=== PATIENT | female | born 1940 | race Caucasian/White ===

== ENCOUNTER 2016-03-22 10:06 | Inpatient (IN) | payer MEDICARE, OTHER ==
[~2016-03-22] VITALS: Ht 160 cm; Wt 122.7 kg
[~2016-03-22 10:06] MED LIST: ACET500T76 PO; ARIP10TA13 PO; ATOR40TA68 PO; BENA20TA48 PO; BRIM10DR12 BOTH EYES; CLOP75TA4 PO; COSO10 BOTH EYES; EMPA1TAB PO; FURO20TA PO; INSU300I SQ; INSU500V SQ; ISOS60TA PO; METO100T13 PO; OMEP20CA16 PO; POTA20TA96 PO; SERT50TA PO; SYMLIN SC
[2016-03-22] MEDS ORDERED: NITROGLYCERIN 2% 1 GM OINT PKT TD STA (10:12)
[2016-03-22] MEDS ORDERED: NITROGLYCERIN (SL) 0.4 MG TAB SL PRN (10:30)
[2016-03-22 10:45] LABS: HEMATOCRIT 37.7 % (37.0-47.0); HEMOGLOBIN 12.1 g/dl (12.0-16.0); MEAN CORPUSCULAR HEMOGLOBIN 23.2 pg (29.0-33.0); MEAN CORPUSCULAR VOLUME 72.6 fl (82.0-101.0); MEAN PLATELET VOLUME 7.2 fl (7.4-10.4); PLATELET COUNT 417 10^3/UL (140-440); UNCORRECTED WBC 17.5 10^3/ul (4.8-10.8); WHITE BLOOD COUNT 17.5 10^3/ul (4.8-10.8)
[2016-03-22 10:49] LABS: CHLORIDE 96 mmol/L (97-110); SODIUM 141 mmol/L (135-144)
[2016-03-22 10:50] LABS: INR 0.89; POTASSIUM 4.3 mmol/L (3.5-5.1); PT RATIO 0.9
[2016-03-22 10:51] LABS: PARTIAL THROMBOPLASTIN TIME 26.5 Sec (25.0-35.0)
[2016-03-22 10:52] LABS: ANION GAP 20 (8-16); BLOOD UREA NITROGEN 26 mg/dl (7-20); CARBON DIOXIDE 29 mmol/L (21-31); CREATININE 0.96 mg/dl (0.44-1.00)
[2016-03-22 10:53] LABS: CALCIUM 8.4 mg/dl (8.4-10.2); GLUCOSE 184 mg/dl (70-220)
[2016-03-22 10:58] LABS: SUSPECT 1
[2016-03-22 10:59] LABS: CONDITION 1; LH ANALYZER COMMENTS 1
--- NOTE | 2016-03-22 11:03 | RADRPT ---
PROCEDURE: XR Chest. CLINICAL INDICATION: Chest pain TECHNIQUE: Single portable view of the chest was obtained COMPARISON: 03/06/16 FINDINGS: The heart is enlarged. There are bibasilar atelectatic changes, right greater than left. There is no pleural effusion or pneumothorax. RPTAT: AA IMPRESSION: Mild Cardiomegaly. Bibasilar atelectatic changes in the lung bases, right greater than left. .Rj Padgett MD, MD Date Time Electronically viewed and signed by .Rj Padgett MD, MD on 03/22/2016 11:03 .S/
[2016-03-22 11:14] LABS: TROPONIN-I < 0.012 ng/ml (0.00-0.12)
[2016-03-22 11:45] LABS: EOSINOPHILS # 0.5 10^3/ul (0.0-0.5); LYMPHOCYTES # 1.8 10^3/ul (0.8-2.9); MONOCYTE # 0.9 10^3/ul (0.3-0.9); NEUTROPHIL # 14.4 10^3/ul (1.6-7.5)
[2016-03-22] MEDS ORDERED: ACETAMINOPHEN 325 MG TAB PO PRN (12:00)
[2016-03-22] MEDS ORDERED: FUROSEMIDE 40 MG INJ IV ONE (12:00)
[2016-03-22] MEDS ORDERED: ONDANSETRON 4 MG INJ IV PRN ×2 (12:00→20:30)
--- NOTE | 2016-03-22 13:42 | ERA ---
ER Documentation Chief Complaint Date/Time DATE: 03/22/16 TIME: 13:40 Chief Complaint BROUGHT IN VIA EMS FROM HOME DUE TO CHEST PAIN HPI Patient is a 75-year-old female with coronary disease, CHF, hypertension, and diabetes who presents with chest pain and shortness of breath. Patient was brought in by ambulance. The patient was given aspirin and nitroglycerin by paramedics. Symptoms started last night. They continued today. She says that she is taking her medications as directed. Upon review of old medical records the patient has multiple visits to the ER with admissions. Her primary doctor is Dr. Alexander but she has been admitted to Dr. Garza on the previous 2 visits to the emergency department as Dr. Alexander does not admit here anymore. ROS All systems reviewed and are negative except as per history of present illness. Medications Home Meds Active Scripts Potassium Chloride* (Potassium Chloride*) 20 Meq Tablet.er, 20 MEQ PO DAILY, # 30 TAB.SA Prov:ENRRIQUE AGUILAR 03/14/16 Furosemide* (Lasix*) 20 Mg Tablet, 40 MG PO BID, #60 TAB Prov:ENRRIQUE AGUILAR 03/14/16 Reported Medications Acetaminophen (PAIN & FEVER) 500 Mg Tablet, 1000 MG PO Q6, TAB 03/06/16 Insulin Glargine,Hum.rec.anlog (Jennie Mcintyre) 300 Unit/1 Ml Insuln.pen, 15 UNIT SQ QAM 03/06/16 Insulin Regular, Human (Humulin R U-500) 500 Unit/1 Ml Vial, 0 SQ TID, VIAL INJECT 33 UNITS-QAM & NOON, &13 UNITS IN DINNER 03/06/16 Pramlintide (Symlinpen 120) 2,700 Mcg/2.7 Ml Pen.injctr, 2700 MCG SC TID 03/06/16 Empagliflozin/Linagliptin (Glyxambi 25 mg-5 mg Tablet) 1 Each Tablet, 1 EACH PO QAM, TAB 03/06/16 Benazepril Hcl* (Benazepril Hcl*) 20 Mg Tablet, 20 MG PO DAILY, #30 TAB 03/06/16 Metoprolol Succinate* (Toprol XL*) 100 Mg Tab.sr.24h, 100 MG PO DAILY, #30 TAB 03/06/16 Isosorbide Mononitrate* (Isosorbide Mononitrate*) 60 Mg Tab.er.24h, 60 MG PO DAILY, TAB 03/06/16 Dorzolamide-Timolol* (Cosopt*) 2%-0.5% Soln, 1 DROP BOTH EYES BID, BOTTLE 12/18/15 Brimonidine Tartrate* (Brimonidine Tartrate*) 0.15%-10ML Drop Opht, 1 DROP BOTH EYES BID, #1 EA 12/18/15 Aripiprazole* (Abilify*) 10 Mg Tablet, 10 MG PO DAILY, #30 TAB 09/03/15 Clopidogrel Bisulfate* (Clopidogrel Bisulfate*) 75 Mg Tablet, 75 MG PO DAILY, TAB 11/28/14 Sertraline Hcl* (Zoloft*) 50 Mg Tablet, 50 MG PO DAILY, TAB 07/05/14 Atorvastatin* (Atorvastatin*) 40 Mg Tablet, 40 MG PO HS, TAB 05/07/14 Omeprazole* (Omeprazole*) 20 Mg Capsule.dr, 20 MG PO BID 09/28/12 Allergies Allergies: Coded Allergies: No Known Drug Allergy (Verified Allergy, Unknown, 03/06/16) PMhx/Soc History of Surgery: No Anesthesia Reaction: No Hx Neurological Disorder: No Hx Respiratory Disorders: Yes Hx Cardiac Disorders: Yes Hx Psychiatric Problems: No Hx Miscellaneous Medical Probl: Yes (vision impaired, CHF, obesity, HTN, anxiety, B LE numbnesse) Hx Alcohol Use: No Hx Substance Use: No Hx Tobacco Use: No Smoking Status: Never smoker FmHx Family History: No coronary disease Physical Exam Vitals Vital Signs Date Time Temp Pulse Resp B/P Pulse Ox O2 Delivery O2 Flow Rate FiO2 03/22/16 10:30 98.5 80 18 175/55 94 Nasal Cannula 3.0 03/22/16 10:30 Nasal Cannula 3 03/22/16 10:12 98.5 96 18 164/72 95 Physical Exam Const: Moderate distress secondary to shortness of breath Head: Atraumatic Eyes: Normal Conjunctiva ENT: Normal External Ears, Nose and Mouth. Neck: Full range of motion..~ No meningismus. Resp: Decreased breath sounds bilaterally Cardio: Regular rate and rhythm, no murmurs Abd: Soft, non tender, non distended. Normal bowel sounds Skin: No petechiae or rashes Back: No midline or flank tenderness Ext: 1+ pitting edema bilateral lower extremities Neur: Awake and alert Psych: Normal Mood and Affect Result Diagram: 03/22/16 1030 03/22/16 1030 Results 24 hrs Laboratory Tests Test 03/22/16 10:30 Activated Partial Thromboplast Time 26.5Sec Anion Gap 20 Basophils # 10^3/ul Basophils % % Blood Morphology Comment Blood Urea Nitrogen 26mg/dl Calcium Level 8.4mg/dl Carbon Dioxide Level 29mmol/L Chloride Level 96mmol/L Creatinine 0.96mg/dl Differential Comment MANUAL DIFF Eosinophils # 0.510^3/ul Eosinophils % 3.0% Glucose Level 184mg/dl Hematocrit 37.7% Hemoglobin 12.1g/dl INR International Normalized Ratio 0.89 Lymphocytes # 1.810^3/ul Lymphocytes % 10.0% Mean Corpuscular Hemoglobin 23.2pg Mean Corpuscular Hemoglobin Concent 32.0g/dl Mean Corpuscular Volume 72.6fl Mean Platelet Volume 7.2fl Monocytes # 0.910^3/ul Monocytes % 5.0% Neutrophils # 14.410^3/ul Neutrophils % 82.0% Nucleated Red Blood Cells # 10^3/ul Nucleated Red Blood Cells % /100WBC Platelet Count 63941^3/UL Potassium Level 4.3mmol/L Prothrombin Time 12.0Sec Prothrombin Time Ratio 0.9 Red Blood Count 5.2010^6/ul Red Cell Distribution Width 22.0% Sodium Level 141mmol/L Troponin I < 0.012ng/ml White Blood Count 17.510^3/ul Current Medications Medications (Trade) Dose Ordered Sig/Errol Route PRN Reason Start Time Stop Time Status Last Admin Dose Admin Nitroglycerin (Nitroglycerin 2% Oint) 1 inch ONCE STAT TD 03/22/16 10:12 03/22/16 10:14 DC 03/22/16 10:34 Nitroglycerin (Nitroglycerin (Sl Tab) 0.4 Mg) 1 tab Q5M UP TO 3 DOSES PRN SL CHEST PAIN 03/22/16 10:30 Furosemide (Lasix) 40 mg ONCE ONCE IV 03/22/16 12:00 03/22/16 12:01 DC Ondansetron HCl (Zofran Inj) 4 mg ER BRIDGE PRN IV NAUSEA AND/OR VOMITING 03/22/16 12:00 12/29/16 11:59 Acetaminophen (Tylenol Tab) 650 mg ER BRIDGE PRN PO MILD PAIN/FEVER 03/22/16 12:00 03/23/16 11:59 Procedures/MDM EKG #1 read by me: Rate/Rhythm: Regular rate and rhythm at a rate of 88 Intervals: Normal Impression: Flipped T waves in the inferior leads EKG #2 pending at this time. PROCEDURE: XR Chest. CLINICAL INDICATION: Chest pain TECHNIQUE: Single portable view of the chest was obtained COMPARISON: 03/06/16 FINDINGS: The heart is enlarged. There are bibasilar atelectatic changes, right greater than left. There is no pleural effusion or pneumothorax. RPTAT: AA IMPRESSION: Mild Cardiomegaly. Bibasilar atelectatic changes in the lung bases, right greater than left. .Rj Padgett MD, MD Date Time Electronically viewed and signed by .Rj Padgett MD, MD on 03/22/2016 11: 03 Patient is a 75-year-old female with multiple comorbidities who presents with what sounds like an acute CHF exacerbation. She was given aspirin and nitroglycerin by paramedics. I gave her Lasix here in the emergency department. The patient will be admitted to the care of Dr. Shepherd who is covering for Dr. Garza. The patient will be admitted to a telemetry bed. The patient understands the plan is okay for admission at this time. I doubt pneumonia or pneumothorax. I doubt pulmonary embolism or aortic dissection at this time. The patient will be admitted to a telemetry observation bed. Departure Diagnosis: Primary Impression: CHF (congestive heart failure) Qualified Code: I50.9 - Acute congestive heart failure, unspecified congestive heart failure type Additional Impression: Chest pain Qualified Code: R07.9 - Chest pain, unspecified type Condition: NADYA Larsen MD Mar 22, 2016 13:42
[2016-03-22 17:00] VITALS: TEMP 98.5
[2016-03-22 17:36] LABS: CK-MB 3.4 ng/ml (0.0-2.4)
[2016-03-22 17:39] LABS: TROPONIN-I 0.011 ng/ml (0.00-0.12)
[2016-03-22] MEDS ORDERED: GLUCOSE GEL 15 GRAM TUBE BUCCAL PRN (19:00)
[2016-03-22] MEDS ORDERED: GLUCOSE GEL 15 GRAM TUBE PO PRN ×2 (19:00)
[2016-03-22] MEDS ORDERED: GLUCAGON 1 MG INJ IM PRN (19:00)
[2016-03-22] MEDS ORDERED: DEXTROSE 50% 50 ML SYRINGE IV PRN ×2 (19:00)
[2016-03-22] MEDS ORDERED: morphine 2 MG INJ IV PRN (20:30)
[2016-03-22] MEDS ORDERED: NACL 0.9% 3 ML SYG IV SCH (20:30)
[2016-03-22] MEDS: ACETAMINOPHEN 325 MG TAB PO PRN (20:44)
[2016-03-22] MEDS: FAMOTIDINE 20 MG INJ IV SCH (21:00)
[2016-03-22] MEDS ORDERED: FUROSEMIDE 20 MG INJ IV ONE (21:30)
[2016-03-22 21:40] LABS: CK-MB 3.45 ng/ml (0.0-2.4)
[2016-03-22 21:43] LABS: TROPONIN-I 0.012 ng/ml (0.00-0.12)
[2016-03-22] MEDS: NPH, HUMAN INSULIN ISOPHANE 3ML VIAL SC SCH (22:13)
[2016-03-22] MEDS: INSULIN ASPART [NOVOLOG] 3 ML PEN SC SCH (22:13)
[2016-03-22 22:45] LABS: CK-MB 3.6 ng/ml (0.0-2.4)
[2016-03-22 22:49] LABS: TROPONIN-I 0.012 ng/ml (0.00-0.12)
[2016-03-23] VITALS (12 sets, daily range): BP systolic 109–174; BP diastolic 53–85; PULSE 74–93; RESP 18–22; Ht 160 cm; Wt 122.7 kg
[2016-03-23] MEDS: ACCUCHECK AT 2AM (Patients on SS coverage) XX SCH (03:00)
[2016-03-23 03:03] LABS: BASOPHIL # 0.1 10^3/ul (0.0-0.1); BASOPHILS % 0.6 % (0.0-2.0); EOSINOPHILS # 0.2 10^3/ul (0.0-0.5); EOSINOPHILS % 1.6 % (0.0-7.0); HEMOGLOBIN 11.7 g/dl (12.0-16.0); LYMPHOCYTES # 0.9 10^3/ul (0.8-2.9); MEAN CORPUSCULAR HEMOGLOBIN 22.9 pg (29.0-33.0); MEAN CORPUSCULAR HGB CONC 31.5 g/dl (32.0-37.0); MEAN CORPUSCULAR VOLUME 72.5 fl (82.0-101.0); MONOCYTE # 0.7 10^3/ul (0.3-0.9); MONOCYTES % 5.5 % (0.0-11.0); NEUTROPHIL # 11.4 10^3/ul (1.6-7.5); NEUTROPHILS % 85.3 % (39.0-77.0); PLATELET COUNT 377 10^3/UL (140-440); RED BLOOD COUNT 5.11 10^6/ul (4.20-5.40); RED CELL DISTRIBUTION WIDTH 21.9 % (11.5-14.5); UNCORRECTED WBC 13.3 10^3/ul (4.8-10.8); WHITE BLOOD COUNT 13.3 10^3/ul (4.8-10.8)
[2016-03-23 03:04] LABS: CONDITION 1; LH ANALYZER COMMENTS 1
[2016-03-23 03:21] LABS: POTASSIUM 4.2 mmol/L (3.5-5.1)
[2016-03-23 03:23] LABS: BILIRUBIN,INDIRECT 0.3 mg/dl (0-1.1); BILIRUBIN,TOTAL 0.3 mg/dl (0.2-1.3); CREATININE 1.16 mg/dl (0.44-1.00)
[2016-03-23 03:24] LABS: ALBUMIN/GLOBULIN RATIO 1.08; CALCIUM 8.3 mg/dl (8.4-10.2); TOTAL PROTEIN 7.7 g/dl (6.1-8.1)
[2016-03-23 03:33] LABS: CK-MB 3.64 ng/ml (0.0-2.4)
[2016-03-23 03:36] LABS: TROPONIN-I 0.019 ng/ml (0.00-0.12)
[2016-03-23] MEDS: METOPROLOL (XL) 100 MG TAB PO SCH (08:33)
[2016-03-23] MEDS: ISOSORBIDE MONONITRATE(SR)60 MG TAB PO SCH (08:34)
[2016-03-23] MEDS: LINAGLIPTIN 5 MG TABLET PO SCH (08:34)
[2016-03-23] MEDS: BENAZEPRIL 20 MG TAB PO SCH (08:34)
[2016-03-23] MEDS: FAMOTIDINE 20 MG INJ IV SCH (08:34)
[2016-03-23] MEDS: INSULIN ASPART [NOVOLOG] 3 ML PEN SC SCH ×7 (08:37→21:00)
[2016-03-23] MEDS: ENOXAPARIN 30 MG/0.3 ML SYG SC SCH (08:38)
[2016-03-23] MEDS: INSULIN GLARGINE [LANtus] 3 ML PEN SC SCH (08:57)
--- NOTE | 2016-03-23 13:16 | RADRPT ---
PROCEDURE: CT Abdomen and Pelvis without contrast. CLINICAL INDICATION: Abdominal and pelvic pain. TECHNIQUE: CT scan of the abdomen and pelvis without contrast was performed. Coronal and sagittal reformatted images were obtained from the axial source images. Images were reviewed on a high-res[employer] Incentive PACS workstation. Total exam DLP is 1375.98 mGy-cm. CTDIvol is 23.32 mGy. COMPARISON: None. FINDINGS: The lung bases are normal. There is no pleural effusion. The liver is normal in size and attenuation. There is no focal hepatic lesion. The gallbladder and bile ducts are normal. The spleen is normal in size. There is no focal splenic lesion. Both adrenals are normal with no enlargement or mass. The pancreas is unremarkable with no mass or evidence of pancreatitis. There is no renal mass or hydronephrosis. There is no renal calculus or ureteral calculus. The abdominal aorta is not dilated. Vascular calcifications are present consistent with atherosclero sis. There is no retroperitoneal lymphadenopathy or mass. There is no pelvic lymphadenopathy or mass. The bladder and distal ureters are normal. The periappendiceal region is unremarkable with no evidence of appendicitis. The bowel and mesentery are normal. There is no free fluid or free gas. There are mild degenerative changes of the spine. There is no fracture or lytic lesion. IMPRESSION: 1. Atherosclerosis. 2. Mild degenerative changes of the spine. 3. No urinary tract calculus or hydronephrosis. 4. No evidence of appendicitis or diverticulitis. 5. Otherwise unremarkable study. RPTAT: QQ .Uri Ley MD, Date Time Electronically viewed and signed by .Uri Ley MD, on 03/23/2016 13:16 .R/
--- NOTE | 2016-03-23 13:24 | HP ---
Date/Time of Note Date/Time of Note DATE: 03/23/16 TIME: 13:21 Assessment/Plan VTE Prophylaxis VTE Prophylaxis Intervention: LMWH Lines/Catheters IV Catheter Type (from [facility]): Saline [employer] Central line still needed: No Urinary Cath still in place: Yes Reason Cath still needed: skin wounds contaminated by urine Assessment/Plan Chief Complaint/Hosp Course 1) congestive heart failure - IV lasix - consult cardiolgy - check 2d echo 2) diabetes - monitor blood sugar Problems: HPI/ROS Admit Date/Time Admit Date/Time Mar 22, 2016 at 11:48 Hx of Present Illness Patient with history of diabetes, hyperension, congestive heart failure comes in with shortness of breath which she has had in the past. PMH/Family/Social Past Medical History Medical History: congestive heart failure, diabetes, hypertension Past Surgical History Past Surgical Hx: other Social History Smoking Status: Never smoker Exam/Review of Systems Vital Signs Vitals Vital Signs Date Time Temp Pulse Resp B/P Pulse Ox O2 Delivery O2 Flow Rate FiO2 03/23/16 12:11 76 03/23/16 07:49 100.5 19 174/72 92 03/23/16 07:45 Nasal Cannula 2.0 Intake and Output 03/22/16 03/22/16 03/23/16 15:00 23:00 07:00 Output Total 500 ml Balance -500 ml Exam Constitutional: alert, well developed Respiratory: diminished breath sounds, wheezing Cardiovascular: regular rate and rhythm Gastrointestinal: non-tender, soft Extremities: normal pulses Labs Result Diagram: 03/23/16 0253 03/23/16 025 Medications Medications Current Medications Insulin Human NPH (Humulin N) 30 unit QHS SC Last administered on 03/22/16at 22 :13; Admin Dose 30 UNIT; Start 03/22/16 at 21:00 Insulin Glargine (Lantus) 45 unit QAM SC Last administered on 03/23/16at 08:57 ; Admin Dose 45 UNIT; Start 03/23/16 at 09:00 Linagliptin (Tradjenta) 5 mg DAILY PO Last administered on 03/23/16at 08:34; Admin Dose 5 MG; Start 03/23/16 at 09:00 Miscellaneous Information 1 ea NOTE XX ; Start 03/22/16 at 19:00 Glucose (Glutose) 15 gm Q15M PRN PO DECREASED GLUCOSE; Start 03/22/16 at 19:00 Glucose (Glutose) 22.5 gm Q15M PRN PO DECREASED GLUCOSE; Start 03/22/16 at 19: 00 Dextrose (D50w Syringe) 25 ml Q15M PRN IV DECREASED GLUCOSE; Start 03/22/16 at 19:00 Dextrose (D50w Syringe) 50 ml Q15M PRN IV DECREASED GLUCOSE; Start 03/22/16 at 19:00 Glucagon (Glucagen) 1 mg Q15M PRN IM DECREASED GLUCOSE; Start 03/22/16 at 19: 00 Glucose (Glutose) 15 gm Q15M PRN BUCCAL DECREASED GLUCOSE; Start 03/22/16 at 19:00 Diagnostic Test (Pha) (Accucheck) 1 ea 02 XX Last administered on 03/23/16at 03 :00; Admin Dose 1 EA; Start 03/23/16 at 02:00 Ondansetron HCl (Zofran Inj) 4 mg Q6H PRN IV NAUSEA AND/OR VOMITING; Start at 20:30 Acetaminophen (Tylenol Tab) 650 mg Q6H PRN PO PAIN LEVEL 1-3 OR FEVER Last administered on 03/22/16at 20:44; Admin Dose 650 MG; Start 03/22/16 at 20:30 Morphine Sulfate (morphine) 2 mg Q4H PRN IV PAIN LEVEL 7-10; Start 03/22/16 at 20:30 Famotidine (Pepcid Iv) 20 mg DAILY IV Last administered on 03/23/16at 08:34; Admin Dose 20 MG; Start 03/22/16 at 21:00 Enoxaparin Sodium (Lovenox) 30 mg DAILY SC Last administered on 03/23/16at 08: 38; Admin Dose 30 MG; Start 03/23/16 at 09:00 Albuterol/ Ipratropium (Duoneb) 3 ml ONCE PRN HHN WHEEZING AND SOB; Start 03/22 at 21:30 Clonidine (Catapres) 0.1 mg Q6H PRN PO ELEVATED SYSTOLIC BP; Start 03/23/16 at 04:03 Benazepril HCl (Lotensin) 20 mg DAILY PO Last administered on 03/23/16at 08:34 ; Admin Dose 20 MG; Start 03/23/16 at 09:00 Isosorbide Mononitrate (Imdur) 60 mg DAILY PO Last administered on 03/23/16at 08:34; Admin Dose 60 MG; Start 03/23/16 at 09:00 Metoprolol Succinate (Toprol Xl) 100 mg DAILY PO Last administered on at 08:33; Admin Dose 100 MG; Start 03/23/16 at 09:00 BRISA PURVIS Mar 23, 2016 13:23
--- NOTE | 2016-03-23 13:34 | CONS ---
Date/Time of Note Date/Time of Note DATE: 03/23/16 TIME: 13:25 Assessment/Plan Assessment/Plan Problems: (1) DM w/o complication type II, uncontrolled Status: Chronic Comment: Once again d/c outpatient regimen of U500 insulin and restart inpt. regimen of lantus 45 qam, Novolog 42/25/20 w/ moderate ISS and NPH 30 units at hs plus linagliptin 5 mg/d. FS already decreased. Will follow and titrate insulin as needed. Consultation Date/Type/Reason Admit Date/Time Mar 22, 2016 at 11:48 Date of Consultation: Mar 23, 2016 Type of Consultation: Endocrinology Reason for Consultation T2DM management Referring Provider: BRISA PURVIS Hx of Present Illness 75 y/o HF w/ h/o T2DM w/ multiple complications, CKD stage 2-3, chronic diastolic CHF, CAD, HTN, glaucoma, vision loss, depression, anxiety, hyperlipidemia, and morbid obesity. As an outpt. she is maintained on very high doses of insulin. In H until 2 days ago when she developed thoracic back pressure associated w/ SOB and FONTENOT. [place] like she was going to . Taking lasix at home w/o relief. Pt. just inpatient for same 2 weeks ago. Returned to [facility] yesterday. Found to be in diastolic CHF exacerbation. Admitted to tele. Constitutional: requiring O2 Eyes: no complaints ENT: no complaints Respiratory: cough, pain, pleuritic pain, shortness of breath, wheezing Cardiovascular: chest pain, edema, orthopenea Gastrointestinal: no complaints Genitourinary: no complaints Musculoskeletal: no complaints Neurologic: no complaints Past Medical History Medical History: congestive heart failure, coronary artery disease, diabetes, high cholesterol, hypertension, renal disease, other (glaucoma w/ B vision loss , anxiety, depression) Past Surgical History Past Surgical Hx: other (Ovarian cystectomy, BECKY, laser eye surgery) Family History Significant Family History: cancer (uterine-sister), diabetes, other (EtOH abuse in father) [facility] 43 [facility], from , 1 daughter Alcohol Use: none Smoking Status: Never smoker Drug Use: none Exam/Review of Systems Vital Signs Vitals VS - Last 72 Hours, by Label Date Time Temp Pulse Resp B/P Pulse Ox O2 Delivery O2 Flow Rate FiO2 03/23/16 12:11 76 03/23/16 08:33 93 03/23/16 07:49 100.5 97 19 174/72 92 03/23/16 07:45 Nasal Cannula 2.0 03/23/16 04:17 99.5 100 22 170/70 95 03/23/16 04:00 93 03/23/16 03:11 Nasal Cannula 2.0 03/23/16 02:32 92 03/23/16 02:29 97.9 92 20 131/85 96 Nasal Cannula 2.0 03/23/16 02:00 3.0 03/23/16 01:56 83 26 137/67 97 Nasal Cannula 3.0 03/22/16 23:51 3.0 03/22/16 22:30 93 18 186/79 96 Nasal Cannula 5.0 03/22/16 21:30 180/143 96 Nasal Cannula 5.0 03/22/16 17:00 98.5 98 18 180/86 94 Nasal Cannula 5.0 03/22/16 15:00 98.5 98 18 176/82 94 Nasal Cannula 3.0 03/22/16 13:00 98.5 98 18 180/79 94 Nasal Cannula 3.0 03/22/16 12:00 98.5 85 18 153/73 94 Nasal Cannula 3.0 03/22/16 10:30 98.5 80 18 175/55 94 Nasal Cannula 3.0 03/22/16 10:30 Nasal Cannula 3 03/22/16 10:12 98.5 96 18 164/72 95 Vital Signs Date Time Temp Pulse Resp B/P Pulse Ox O2 Delivery O2 Flow Rate FiO2 03/23/16 12:11 76 03/23/16 07:49 100.5 19 174/72 92 03/23/16 07:45 Nasal Cannula 2.0 Intake and Output 03/22/16 03/22/16 03/23/16 14:59 22:59 06:59 Output Total 500 ml Balance -500 ml Exam Constitutional: alert, distress (tachypneic), obese, oriented Psych: anxiety Eyes: EOMI, PERRL, nl conjunctiva, nl lids, nl sclera ENMT: mucosa pink and moist, nl external ears & nose Neck: non-tender, supple, No bruits, No masses, No thyromegaly Respiratory: crackles/rales, labored breathing, wheezing Cardiovascular: edema (trace BLE), regular rate and rhythm, No murmurs/extra sounds, No rub Gastrointestinal: bowel sounds, nl liver, spleen, non-tender, soft, No mass, No rebound or guarding Musculoskeletal: nl extremities to inspection Extremities: normal pulses, No clubbing, No cyanosis, No edema Neurological: NUTRITION HELPER II-XII intact, nl mental status, nl speech, nl strength Additional Comments Bedside Glucose - 72 Hours Test 03/22/16 20:14 03/22/16 21:32 03/23/16 03:01 03/23/16 07:45 Bedside Glucose 387mg/dL (70-220) H 374mg/dL (70-220) H 309mg/dL (70-220) H 311mg/dL (70-220) H Test 03/23/16 08:24 03/23/16 12:09 Bedside Glucose 318mg/dL (70-220) H 176mg/dL (70-220) Results Result Diagram: 03/23/16 0253 03/23/16 0253 Results 24 hrs Laboratory Tests Test 03/22/16 17:00 03/22/16 20:14 03/22/16 21:09 03/22/16 21:32 Creatine Kinase 234 H 287 H Creatine Kinase Index 1.5 1.2 Creatinine Kinase MB (Mass) 3.40 H 3.45 H Troponin I 0.011 0.012 Bedside Glucose 387 H 374 H Test 03/22/16 22:13 03/23/16 02:53 03/23/16 03:01 03/23/16 07:45 Creatine Kinase 303 H 314 H Creatine Kinase Index 1.2 1.2 Creatinine Kinase MB (Mass) 3.60 H 3.64 H Troponin I 0.012 0.019 Alanine Aminotransferase (ALT/SGPT) 32 Albumin 4.0 Albumin/Globulin Ratio 1.08 Alkaline Phosphatase 96 Anion Gap 18 H Aspartate Amino Transf (AST/SGOT) 26 Basophils # 0.1 Basophils % 0.6 Blood Morphology Comment Blood Urea Nitrogen 26 H Calcium Level 8.3 L Carbon Dioxide Level 32 H Chloride Level 95 L Creatinine 1.16 H Direct Bilirubin 0.00 Eosinophils # 0.2 Eosinophils % 1.6 Globulin 3.70 H Glucose Level 321 H Hematocrit 37.0 Hemoglobin 11.7 L Indirect Bilirubin 0.3 Lymphocytes # 0.9 Lymphocytes % 7.0 L Mean Corpuscular Hemoglobin 22.9 L Mean Corpuscular Hemoglobin Concent 31.5 L Mean Corpuscular Volume 72.5 L Mean Platelet Volume 7.0 L Monocytes # 0.7 Monocytes % 5.5 Neutrophils # 11.4 H Neutrophils % 85.3 H Nucleated Red Blood Cells # 0.0 Nucleated Red Blood Cells % 0.0 Platelet Count 377 Potassium Level 4.2 Red Blood Count 5.11 Red Cell Distribution Width 21.9 H Sodium Level 141 Total Bilirubin 0.3 Total Protein 7.7 White Blood Count 13.3 #H Bedside Glucose 309 H 311 H Test 03/23/16 08:24 03/23/16 12:09 Bedside Glucose 318 H 176 Medications Medications Current Medications Insulin Human NPH (Humulin N) 30 unit QHS SC Last administered on 03/22/16at 22 :13; Admin Dose 30 UNIT; Start 03/22/16 at 21:00 Insulin Glargine (Lantus) 45 unit QAM SC Last administered on 03/23/16at 08:57 ; Admin Dose 45 UNIT; Start 03/23/16 at 09:00 Linagliptin (Tradjenta) 5 mg DAILY PO Last administered on 03/23/16at 08:34; Admin Dose 5 MG; Start 03/23/16 at 09:00 Miscellaneous Information 1 ea NOTE XX ; Start 03/22/16 at 19:00 Glucose (Glutose) 15 gm Q15M PRN PO DECREASED GLUCOSE; Start 03/22/16 at 19:00 Glucose (Glutose) 22.5 gm Q15M PRN PO DECREASED GLUCOSE; Start 03/22/16 at 19: 00 Dextrose (D50w Syringe) 25 ml Q15M PRN IV DECREASED GLUCOSE; Start 03/22/16 at 19:00 Dextrose (D50w Syringe) 50 ml Q15M PRN IV DECREASED GLUCOSE; Start 03/22/16 at 19:00 Glucagon (Glucagen) 1 mg Q15M PRN IM DECREASED GLUCOSE; Start 03/22/16 at 19: 00 Glucose (Glutose) 15 gm Q15M PRN BUCCAL DECREASED GLUCOSE; Start 03/22/16 at 19:00 Diagnostic Test (Pha) (Accucheck) 1 ea 02 XX Last administered on 03/23/16at 03 :00; Admin Dose 1 EA; Start 03/23/16 at 02:00 Ondansetron HCl (Zofran Inj) 4 mg Q6H PRN IV NAUSEA AND/OR VOMITING; Start at 20:30 Acetaminophen (Tylenol Tab) 650 mg Q6H PRN PO PAIN LEVEL 1-3 OR FEVER Last administered on 03/22/16at 20:44; Admin Dose 650 MG; Start 03/22/16 at 20:30 Morphine Sulfate (morphine) 2 mg Q4H PRN IV PAIN LEVEL 7-10; Start 03/22/16 at 20:30 Famotidine (Pepcid Iv) 20 mg DAILY IV Last administered on 03/23/16 08:34; Admin Dose 20 MG; Start 03/22/16 at 21:00 Enoxaparin Sodium (Lovenox) 30 mg DAILY SC Last administered on 03/23/16 08: 38; Admin Dose 30 MG; Start 03/23/16 at 09:00 Albuterol/ Ipratropium (Duoneb) 3 ml ONCE PRN HHN WHEEZING AND SOB; Start 03/22 at 21:30 Clonidine (Catapres) 0.1 mg Q6H PRN PO ELEVATED SYSTOLIC BP; Start 03/23/16 at 04:03 Benazepril HCl (Lotensin) 20 mg DAILY PO Last administered on 03/23/16at 08:34 ; Admin Dose 20 MG; Start 03/23/16 at 09:00 Isosorbide Mononitrate (Imdur) 60 mg DAILY PO Last administered on 03/23/16 08:34; Admin Dose 60 MG; Start 03/23/16 at 09:00 Metoprolol Succinate (Toprol Xl) 100 mg DAILY PO Last administered on at 08:33; Admin Dose 100 MG; Start 03/23/16 at 09:00 TONY KELLY MD Mar 23, 2016 13:34
[2016-03-23] MEDS: ALBUTEROL/IPRATROPIUM (NEB) 3 ML AMP HHN PRN (17:12)
[2016-03-23] MEDS: FUROSEMIDE 20 MG INJ IV SCH (17:49)
--- NOTE | 2016-03-23 18:18 | CONS ---
DATE OF ADMISSION: 03/22/2016 DATE OF CONSULTATION: 03/23/2016 TYPE OF CONSULTATION: Cardiology. REASON FOR CONSULTATION: Congestive heart failure exacerbation. REQUESTING PHYSICIAN: Zahida Purvis MD HISTORY OF PRESENT ILLNESS: Ms. Lee is a 75-year-old female with history of congestive heart failure with preserved left ventricular ejection fraction by echo in 11/2015, hypertension, chronic kidney disease, diabetes mellitus, coronary artery disease who had recently been admitted for CHF exacerbation, was diuresed, made improvement, discharged to outpatient followup and now re- presents with complaints of shortness of breath. Upon arrival in the emergency department, temperature 98.5, blood pressure 164/72, pulse 96, respiratory rate 18, saturating 95%. The patient's labs revealed a white cell count of 17.5, a hemoglobin of 12.1, a platelet count of 417. A sodium of 141, potassium 4.3, creatinine 0.96, BUN 26. Troponin negative. INR 0.89. The patient underwent a chest x-ray revealing mild cardiomegaly; bibasilar atelectatic changes in the lung bases, right greater than left. An abdominopelvic CT revealing mild degenerative changes of the spine, no evidence of appendicitis or diverticulosis. The patient's electrocardiogram revealed normal sinus rhythm at a rate of 88 with normal axis, normal intervals, inferior biphasic T-wave abnormalities. The patient subsequently has been admitted to the floor, where she continues to have shortness breath. PAST MEDICAL HISTORY: As above in HPI. MEDICATIONS CURRENTLY IN HOSPITAL: 1. Lasix 20 mg IV b.i.d. 2. Tradjenta. 3. Lovenox. 4. Benazepril 40 mg daily. 5. Imdur 60 mg daily. 6. Toprol-XL 100 mg daily. 7. Insulin sliding scale. 8. Clonidine p.r.n. 9. DuoNeb. ALLERGIES: NO KNOWN DRUG ALLERGIES. SOCIAL HISTORY: No tobacco, ETOH, illicit drug use. FAMILY HISTORY: Negative for sudden cardiac or early CAD. REVIEW OF SYSTEMS: As above in HPI. CONSTITUTIONAL: No fevers, chills. PULMONARY: Shortness of breath. CARDIOVASCULAR: No current chest pain. GASTROINTESTINAL: No vomiting. GENITOURINARY: No hematuria. MUSCULOSKELETAL: Degenerative joint disease. PSYCHIATRIC: The patient denies depression. NEUROLOGIC: No documented history of CVA. PHYSICAL EXAMINATION: VITAL SIGNS: Temperature of 98.8, blood pressure most recently 109/53, pulse 76 , respiratory rate 20, saturating 97%. GENERAL: The patient is alert, awake, complaining of shortness of breath. NECK: JVP difficult to assess secondary to body habitus. HEART: Regular rate, rhythm. Normal S1, S2. I/ systolic murmur. Nondisplaced PMI. ABDOMEN: Positive bowel sounds, soft. EXTREMITIES: Trace edema. Pulse 1+ bilaterally at posterior tibial. LABORATORIES: As above in HPI with since admit the patient having more than 3 negative troponins, ruling out for acute myocardial infarction. White blood cell count from today 13.3, hemoglobin of 11.7, platelet count of 377. INR 0.89. IMAGING STUDIES: As above in HPI. No further imaging studies for my review at this time. ELECTROCARDIOGRAM: As above in HPI. No further electrocardiograms for my review at this time. IMPRESSION: 1. Congestive heart failure, diastolic, acute on chronic by echocardiogram 2015. 2. Hypertensive urgency/emergency, currently improved on most recent vital sign assessment. 3. Shortness of breath secondary to #1. 4. Diabetes mellitus. 5. Renal insufficiency, acute. 6. Anemia. 7. Leukocytosis. RECOMMENDATIONS: 1. At this time would maintain patient on telemetry monitoring to follow rhythm and rate control closely. 2. Would continue the patient's Lasix diuresis, follow strict I's and O's and creatinine to grade diuresis closely. 3. Continue the patient's current Toprol, benazepril, Imdur for control of blood pressure and any antianginal effects. 4. Check serial EKGs, assess for any significant ongoing changes. 5. Adjustment of the patient's hypoglycemics to improve blood glucose control. 6. Check a fasting lipid panel for general risk stratification and initiate lipid-lowering medication as necessary. 7. Would consider bronchodilators and follow up all culture data. Thank you for allowing me to take part in the care of this patient. I will continue to follow along very closely with you with further recommendations to be made as patient progresses through her inpatient hospital clinical course. Dictated By: TERRIE GAINES/CLAUDIA Conf#: [id number] DID#: [id number] CC: ZAHIDA PURVIS MD;*EndCC* MTDD
--- NOTE | 2016-03-23 18:51 | RADRPT ---
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 Physician: BRISA PURVIS Quality: Technically Difficult Study Procedures: Transthoracic echocardiogram with complete 2D, M-Mode, and doppler examination. Indications: Congestive Heart Failure. 2D/M Mode Doppler Measurement Value Normal Ranges Measurement Value Normal Ranges LVIDd 2D 5.4 3.5 - 5.6 cm AV Peak Aditya 1.6 m/sec LVIDs 2D 3.1 2.1 - 4.1 cm AV Peak PG 10.3 mmHg LVPWd 2D 0.9 0.6 - 1.1 cm LVOT Peak Aditya 1.1 m/sec AoR Diam 2D 2.7 2.0 - 3.7 cm LVOT Peak PG 5.1 mmHg EDV 2D 140.7 cm3 MV E Peak Aditya 0.9 m/sec ESV 2D 29.8 cm3 MV A Peak Aditya 1.1 m/sec LA Dimen 2D 3.5 2.3 - 4.0 cm MV E/A 0.8 MV Decel Time 250 msec MV Decel Navarro 4 MV E/A 0.8 TR Peak Aditya 2.6 m/sec TR Peak PG 27.0 mmHg RVSP 30.0 mmHg Findings Left Ventricle: Normal left ventricular systolic function. Normal left ventricular cavity size. Normal left ventricular wall thickness. Ejection fraction is visually estimated at 55 %. Tissue Doppler/Mitral Doppler indices are consistent with impaired relaxation (Stage I diastolic dysfunction). Right Ventricle: Normal right ventricular size. Normal right ventricular systolic function. Left Atrium: The left atrium is normal in size. Right Atrium: The right atrium is normal in size. Mitral Valve: Mild mitral leaflet calcification. Mild mitral annular calcification. Trace mitral regurgitation. Aortic Valve: Normal appearance of the aortic valve. No significant aortic stenosis or insufficiency. Tricuspid Valve: Normal appearance of the tricuspid valve. Estimated peak PA systolic pressure 30 mmHg. There is trace to mild tricuspid regurgitation. Pulmonic Valve: Pulmonic valve not well visualized. Pericardium: Normal pericardium with no significant pericardial effusion. Aorta: Normal aortic root. IVC: Normal size and normal respiratory collapse consistent with normal right atrial pressure. Pulmonary Artery: Normal pulmonary artery size. Conclusions 1.Normal left ventricular systolic function. Normal left ventricular cavity size. Normal left ventricular wall thickness. Ejection fraction is visually estimated at 55 %. Tissue Doppler/Mitral Doppler indices are consistent with impaired relaxation (Stage I diastolic dysfunction). 2.Mild mitral leaflet calcification. Mild mitral annular calcification. Trace mitral regurgitation. 3.Normal appearance of the tricuspid valve. Estimated peak PA systolic pressure 30 mmHg. There is trace to mild tricuspid regurgitation. Electronically Signed By: Jimbo Cota 23-Mar-2016 18:50:26 -0800 Patient Name: TAMAR TIERNEY Study Date: 23-Mar-2016 [id number]
[2016-03-23] MEDS: NPH, HUMAN INSULIN ISOPHANE 3ML VIAL SC SCH (22:30)
[2016-03-24] VITALS (11 sets, daily range): BP systolic 116–173; BP diastolic 56–83; PULSE 61–85; RESP 18–20
[2016-03-24] MEDS: ACCUCHECK AT 2AM (Patients on SS coverage) XX SCH (02:00)
[2016-03-24] MEDS: FUROSEMIDE 20 MG INJ IV SCH (05:51)
[2016-03-24 06:50] LABS: BASOPHILS % 0.3 % (0.0-2.0); EOSINOPHILS # 0.3 10^3/ul (0.0-0.5); EOSINOPHILS % 2.9 % (0.0-7.0); HEMATOCRIT 36.2 % (37.0-47.0); HEMOGLOBIN 11.4 g/dl (12.0-16.0); LYMPHOCYTES # 1.5 10^3/ul (0.8-2.9); LYMPHOCYTES % 13.6 % (15.0-51.0); MEAN CORPUSCULAR HEMOGLOBIN 23.1 pg (29.0-33.0); MEAN CORPUSCULAR HGB CONC 31.3 g/dl (32.0-37.0); MEAN CORPUSCULAR VOLUME 73.8 fl (82.0-101.0); MEAN PLATELET VOLUME 7.6 fl (7.4-10.4); MONOCYTE # 1.1 10^3/ul (0.3-0.9); MONOCYTES % 9.4 % (0.0-11.0); NEUTROPHIL # 8.4 10^3/ul (1.6-7.5); NEUTROPHILS % 73.8 % (39.0-77.0); PLATELET COUNT 343 10^3/UL (140-440); RED BLOOD COUNT 4.91 10^6/ul (4.20-5.40); RED CELL DISTRIBUTION WIDTH 21.6 % (11.5-14.5); UNCORRECTED WBC 11.4 10^3/ul (4.8-10.8); WHITE BLOOD COUNT 11.4 10^3/ul (4.8-10.8)
[2016-03-24 07:03] LABS: CONDITION 1; LH ANALYZER COMMENTS 1
[2016-03-24 07:07] LABS: POTASSIUM 4.5 mmol/L (3.5-5.1)
[2016-03-24 07:09] LABS: CREATININE 2.15 mg/dl (0.44-1.00)
[2016-03-24 07:10] LABS: CALCIUM 8.1 mg/dl (8.4-10.2)
[2016-03-24] MEDS: ISOSORBIDE MONONITRATE(SR)60 MG TAB PO SCH (08:28)
[2016-03-24] MEDS: BENAZEPRIL 20 MG TAB PO SCH (08:28)
[2016-03-24] MEDS: LINAGLIPTIN 5 MG TABLET PO SCH (08:28)
[2016-03-24] MEDS: ENOXAPARIN 30 MG/0.3 ML SYG SC SCH (08:31)
[2016-03-24] MEDS: INSULIN GLARGINE [LANtus] 3 ML PEN SC SCH (08:32)
[2016-03-24] MEDS: FAMOTIDINE 20 MG INJ IV SCH (08:32)
[2016-03-24] MEDS: INSULIN ASPART [NOVOLOG] 3 ML PEN SC SCH ×7 (08:33→21:05)
[2016-03-24] MEDS: METOPROLOL (XL) 100 MG TAB PO SCH (08:34)
[2016-03-24] MEDS: ACETAMINOPHEN 325 MG TAB PO PRN (11:47)
--- NOTE | 2016-03-24 12:47 | CONS ---
Date/Time of Note Date/Time of Note DATE: 03/24/16 TIME: 12:43 Assessment/Plan Assessment/Plan Problems: (1) DM w/o complication type II, uncontrolled Status: Chronic Comment: FS in good control yesterday but FBG elevated today. No notation by O /N RN of feeding pt. so will increase NPH from 30 to 38 units sq qhs. O/w rest of insulin doses pt. is receiving appear to be effective. Will continue. Consultation Date/Type/Reason Admit Date/Time Mar 22, 2016 at 11:48 Initial Consult Date 03/23/16 Type of Consultation: Endocrinology Reason for Consultation T2DM management Referring Provider: BRISA PURVIS 24 HR Interval Summary Constitutional: requiring O2 Detailed Summary Respiratory: cough, pain, shortness of breath (improved), wheezing Cardiovascular: chest pain Gastrointestinal: pain (from coughing) Genitourinary: no complaints Musculoskeletal: no complaints Neurologic: no complaints Exam/Review of Systems Vital Signs Vitals VS - Last 72 Hours, by Label Date Time Temp Pulse Resp B/P Pulse Ox O2 Delivery O2 Flow Rate FiO2 03/24/16 12:22 73 03/24/16 11:52 98.3 68 20 132/61 95 03/24/16 08:26 80 03/24/16 08:00 Nasal Cannula 2.0 03/24/16 07:52 98.4 89 20 173/69 97 03/24/16 04:17 85 03/24/16 04:00 98.8 76 18 146/65 98 03/24/16 00:51 78 03/23/16 21:37 3.0 03/23/16 20:16 Nasal Cannula 2.0 03/23/16 20:03 76 03/23/16 19:35 99.3 75 20 118/58 98 03/23/16 17:13 98 3.0 03/23/16 17:13 98 18 98 Nasal Cannula 3.0 03/23/16 16:20 74 03/23/16 16:15 98.8 76 20 109/53 97 03/23/16 12:11 76 03/23/16 08:33 93 03/23/16 07:49 100.5 97 19 174/72 92 03/23/16 07:45 Nasal Cannula 2.0 03/23/16 04:17 99.5 100 22 170/70 95 03/23/16 04:00 93 03/23/16 03:11 Nasal Cannula 2.0 03/23/16 02:32 92 03/23/16 02:29 97.9 92 20 131/85 96 Nasal Cannula 2.0 03/23/16 02:00 3.0 03/23/16 01:56 83 26 137/67 97 Nasal Cannula 3.0 03/23/16 00:00 98.2 81 18 115/55 96 03/22/16 23:51 3.0 03/22/16 22:30 93 18 186/79 96 Nasal Cannula 5.0 03/22/16 21:30 180/143 96 Nasal Cannula 5.0 03/22/16 17:00 98.5 98 18 180/86 94 Nasal Cannula 5.0 03/22/16 15:00 98.5 98 18 176/82 94 Nasal Cannula 3.0 03/22/16 13:00 98.5 98 18 180/79 94 Nasal Cannula 3.0 03/22/16 12:00 98.5 85 18 153/73 94 Nasal Cannula 3.0 03/22/16 10:30 98.5 80 18 175/55 94 Nasal Cannula 3.0 03/22/16 10:30 Nasal Cannula 3 03/22/16 10:12 98.5 96 18 164/72 95 Vital Signs Date Time Temp Pulse Resp B/P Pulse Ox O2 Delivery O2 Flow Rate FiO2 03/24/16 12:22 73 03/24/16 11:52 98.3 20 132/61 95 03/24/16 08:00 Nasal Cannula 2.0 Intake and Output 03/23/16 03/23/16 03/24/16 15:00 23:00 07:00 Intake Total 650 ml 400 ml Balance 650 ml 400 ml Exam Constitutional: oriented Psych: nl mood/affect, no complaints Respiratory: crackles/rales (at bases only), labored breathing, wheezing Cardiovascular: nl pulses, regular rate and rhythm, No edema, No murmurs/extra sounds, No rub Gastrointestinal: bowel sounds, nl liver, spleen, non-tender, soft, No mass, No rebound or guarding Musculoskeletal: nl extremities to inspection Extremities: normal pulses, No clubbing, No cyanosis, No edema Neurological: CODING COORDINATOR II-XII intact, nl mental status, nl speech, nl strength Additional Comments Bedside Glucose - 72 Hours Test 12/28/16 20:14 03/22/16 21:32 03/23/16 03:01 03/23/16 07:45 Bedside Glucose 387mg/dL (70-220) H 374mg/dL (70-220) H 309mg/dL (70-220) H 311mg/dL (70-220) H Test 03/23/16 08:24 03/23/16 12:09 03/23/16 17:42 03/23/16 20:25 Bedside Glucose 318mg/dL (70-220) H 176mg/dL (70-220) 97mg/dL (70-220) 137mg/dL (70-220) Test 03/24/16 08:15 03/24/16 11:24 Bedside Glucose 264mg/dL (70-220) H 184mg/dL (70-220) Results Result Diagram: 03/24/16 0520 03/24/16 0529 Results 24 hrs Laboratory Tests Test 03/23/16 17:42 03/23/16 20:25 03/24/16 05:20 03/24/16 05:29 Bedside Glucose 97 137 Basophils # 0.0 Basophils % 0.3 Blood Morphology Comment Eosinophils # 0.3 Eosinophils % 2.9 Hematocrit 36.2 L Hemoglobin 11.4 L Lymphocytes # 1.5 Lymphocytes % 13.6 L Mean Corpuscular Hemoglobin 23.1 L Mean Corpuscular Hemoglobin Concent 31.3 L Mean Corpuscular Volume 73.8 L Mean Platelet Volume 7.6 Monocytes # 1.1 H Monocytes % 9.4 Neutrophils # 8.4 H Neutrophils % 73.8 Nucleated Red Blood Cells # 0.0 Nucleated Red Blood Cells % 0.0 Platelet Count 343 Red Blood Count 4.91 Red Cell Distribution Width 21.6 H White Blood Count 11.4 H Anion Gap 18 H Blood Urea Nitrogen 44 #H Calcium Level 8.1 L Carbon Dioxide Level 36 H Chloride Level 92 L Creatinine 2.15 H Glucose Level 194 # Potassium Level 4.5 Sodium Level 141 Test 03/24/16 08:15 03/24/16 11:24 Bedside Glucose 264 H 184 Medications Medications Current Medications Insulin Human NPH (Humulin N) 30 unit QHS SC Last administered on 03/23/16at 22 :30; Admin Dose 30 UNIT; Start 03/22/16 at 21:00 Insulin Glargine (Lantus) 45 unit QAM SC Last administered on 03/24/16at 08:32 ; Admin Dose 45 UNIT; Start 03/23/16 at 09:00 Linagliptin (Tradjenta) 5 mg DAILY PO Last administered on 03/24/16at 08:28; Admin Dose 5 MG; Start 03/23/16 at 09:00 Miscellaneous Information 1 ea NOTE XX ; Start 03/22/16 at 19:00 Glucose (Glutose) 15 gm Q15M PRN PO DECREASED GLUCOSE; Start 03/22/16 at 19:00 Glucose (Glutose) 22.5 gm Q15M PRN PO DECREASED GLUCOSE; Start 03/22/16 at 19: 00 Dextrose (D50w Syringe) 25 ml Q15M PRN IV DECREASED GLUCOSE; Start 03/22/16 at 19:00 Dextrose (D50w Syringe) 50 ml Q15M PRN IV DECREASED GLUCOSE; Start 03/22/16 at 19:00 Glucagon (Glucagen) 1 mg Q15M PRN IM DECREASED GLUCOSE; Start 03/22/16 at 19: 00 Glucose (Glutose) 15 gm Q15M PRN BUCCAL DECREASED GLUCOSE; Start 03/22/16 at 19:00 Diagnostic Test (Pha) (Accucheck) 1 ea 02 XX Last administered on 03/23/16at 03 :00; Admin Dose 1 EA; Start 03/23/16 at 02:00 Ondansetron HCl (Zofran Inj) 4 mg Q6H PRN IV NAUSEA AND/OR VOMITING; Start at 20:30 Acetaminophen (Tylenol Tab) 650 mg Q6H PRN PO PAIN LEVEL 1-3 OR FEVER Last administered on 03/24/16at 11:47; Admin Dose 650 MG; Start 03/22/16 at 20:30 Morphine Sulfate (morphine) 2 mg Q4H PRN IV PAIN LEVEL 7-10; Start 03/22/16 at 20:30 Famotidine (Pepcid Iv) 20 mg DAILY IV Last administered on 03/24/16at 08:32; Admin Dose 20 MG; Start 03/22/16 at 21:00 Enoxaparin Sodium (Lovenox) 30 mg DAILY SC Last administered on 03/24/16at 08: 31; Admin Dose 30 MG; Start 03/23/16 at 09:00 Albuterol/ Ipratropium (Duoneb) 3 ml ONCE PRN HHN WHEEZING AND SOB Last administered on 03/23/16at 17:12; Admin Dose 3 ML; Start 03/22/16 at 21:30 Clonidine (Catapres) 0.1 mg Q6H PRN PO ELEVATED SYSTOLIC BP; Start 03/23/16 at 04:03 Benazepril HCl (Lotensin) 20 mg DAILY PO Last administered on 03/24/16at 08:28 ; Admin Dose 20 MG; Start 03/23/16 at 09:00 Isosorbide Mononitrate (Imdur) 60 mg DAILY PO Last administered on 03/24/16at 08:28; Admin Dose 60 MG; Start 03/23/16 at 09:00 Metoprolol Succinate (Toprol Xl) 100 mg DAILY PO Last administered on at 08:34; Admin Dose 100 MG; Start 03/23/16 at 09:00 TONY KELLY MD Mar 24, 2016 12:47
[2016-03-24] MEDS: ALBUTEROL/IPRATROPIUM (NEB) 3 ML AMP HHN PRN (14:16)
--- NOTE | 2016-03-24 14:29 | PN ---
Date/Time of Note Date/Time of Note DATE: 03/24/16 TIME: 14:28 Assessment/Plan VTE Prophylaxis VTE Prophylaxis Intervention: LMWH Lines/Catheters IV Catheter Type (from Nrs): Saline Lock Urinary Cath still in place: Yes Reason Cath still needed: skin wounds contaminated by urine Assessment/Plan Chief Complaint/Hosp Course 1) congestive heart failure - IV lasix - appreciate cardiolgy input - check 2d echo 2) diabetes - monitor blood sugar Problems: Subjective 24 Hr Interval Summary Free Text/Dictation Patient is breathing better Exam/Review of Systems Vital Signs Vitals Vital Signs Date Time Temp Pulse Resp B/P Pulse Ox O2 Delivery O2 Flow Rate FiO2 03/24/16 14:19 3.0 03/24/16 14:19 102 22 96 Nasal Cannula 03/24/16 11:52 98.3 132/61 Intake and Output 03/23/16 03/23/16 03/24/16 15:00 23:00 07:00 Intake Total 650 ml 400 ml Balance 650 ml 400 ml Exam Constitutional: alert, well developed Neck: supple Respiratory: diminished breath sounds, wheezing Cardiovascular: regular rate and rhythm Gastrointestinal: non-tender, soft Extremities: normal pulses Results Result Diagram: 03/24/16 0520 03/24/16 0529 Results 24 hrs Laboratory Tests Test 03/23/16 17:42 03/23/16 20:25 03/24/16 05:20 03/24/16 05:29 Bedside Glucose 97 137 Basophils # 0.0 Basophils % 0.3 Blood Morphology Comment Eosinophils # 0.3 Eosinophils % 2.9 Hematocrit 36.2 L Hemoglobin 11.4 L Lymphocytes # 1.5 Lymphocytes % 13.6 L Mean Corpuscular Hemoglobin 23.1 L Mean Corpuscular Hemoglobin Concent 31.3 L Mean Corpuscular Volume 73.8 L Mean Platelet Volume 7.6 Monocytes # 1.1 H Monocytes % 9.4 Neutrophils # 8.4 H Neutrophils % 73.8 Nucleated Red Blood Cells # 0.0 Nucleated Red Blood Cells % 0.0 Platelet Count 343 Red Blood Count 4.91 Red Cell Distribution Width 21.6 H White Blood Count 11.4 H Anion Gap 18 H Blood Urea Nitrogen 44 #H Calcium Level 8.1 L Carbon Dioxide Level 36 H Chloride Level 92 L Creatinine 2.15 H Glucose Level 194 # Potassium Level 4.5 Sodium Level 141 Test 03/24/16 08:15 03/24/16 11:24 Bedside Glucose 264 H 184 Medications Medications Current Medications Insulin Glargine (Lantus) 45 unit QAM SC Last administered on 03/24/16at 08:32 ; Admin Dose 45 UNIT; Start 03/23/16 at 09:00 Linagliptin (Tradjenta) 5 mg DAILY PO Last administered on 03/24/16at 08:28; Admin Dose 5 MG; Start 03/23/16 at 09:00 Miscellaneous Information 1 ea NOTE XX ; Start 03/22/16 at 19:00 Glucose (Glutose) 15 gm Q15M PRN PO DECREASED GLUCOSE; Start 03/22/16 at 19:00 Glucose (Glutose) 22.5 gm Q15M PRN PO DECREASED GLUCOSE; Start 03/22/16 at 19: 00 Dextrose (D50w Syringe) 25 ml Q15M PRN IV DECREASED GLUCOSE; Start 03/22/16 at 19:00 Dextrose (D50w Syringe) 50 ml Q15M PRN IV DECREASED GLUCOSE; Start 03/22/16 at 19:00 Glucagon (Glucagen) 1 mg Q15M PRN IM DECREASED GLUCOSE; Start 03/22/16 at 19: 00 Glucose (Glutose) 15 gm Q15M PRN BUCCAL DECREASED GLUCOSE; Start 03/22/16 at 19:00 Diagnostic Test (Pha) (Accucheck) 1 ea 02 XX Last administered on 03/23/16at 03 :00; Admin Dose 1 EA; Start 03/23/16 at 02:00 Ondansetron HCl (Zofran Inj) 4 mg Q6H PRN IV NAUSEA AND/OR VOMITING; Start at 20:30 Acetaminophen (Tylenol Tab) 650 mg Q6H PRN PO PAIN LEVEL 1-3 OR FEVER Last administered on 03/24/16at 11:47; Admin Dose 650 MG; Start 03/22/16 at 20:30 Morphine Sulfate (morphine) 2 mg Q4H PRN IV PAIN LEVEL 7-10; Start 03/22/16 at 20:30 Famotidine (Pepcid Iv) 20 mg DAILY IV Last administered on 03/24/16at 08:32; Admin Dose 20 MG; Start 03/22/16 at 21:00 Enoxaparin Sodium (Lovenox) 30 mg DAILY SC Last administered on 03/24/16at 08: 31; Admin Dose 30 MG; Start 03/23/16 at 09:00 Albuterol/ Ipratropium (Duoneb) 3 ml ONCE PRN HHN WHEEZING AND SOB Last administered on 03/24/16at 14:16; Admin Dose 3 ML; Start 03/22/16 at 21:30 Clonidine (Catapres) 0.1 mg Q6H PRN PO ELEVATED SYSTOLIC BP; Start 03/23/16 at 04:03 Benazepril HCl (Lotensin) 20 mg DAILY PO Last administered on 03/24/16at 08:28 ; Admin Dose 20 MG; Start 03/23/16 at 09:00 Isosorbide Mononitrate (Imdur) 60 mg DAILY PO Last administered on 03/24/16at 08:28; Admin Dose 60 MG; Start 03/23/16 at 09:00 Metoprolol Succinate (Toprol Xl) 100 mg DAILY PO Last administered on at 08:34; Admin Dose 100 MG; Start 03/23/16 at 09:00 Insulin Human NPH (Humulin N) 38 unit QHS SC ; Start 03/24/16 at 21:00 Guaifenesin/ Dextromethorphan (Mucinex Dm) 1 tab BID PRN PO cough; Start 03/24 at 13:00 BRISA PURVIS Mar 24, 2016 14:28
--- NOTE | 2016-03-24 16:14 | CONS ---
Date/Time of Note Date/Time of Note DATE: 03/24/16 TIME: 16:07 Assessment/Plan Assessment/Plan Chief Complaint/Hosp Course IMPRESSION: 1. Congestive heart failure, diastolic, acute on chronic by echocardiogram 2015. 2. Hypertensive urgency/emergency, currently improved on most recent vital sign assessment. 3. Shortness of breath secondary to #1. 4. Diabetes mellitus. 5. ARF 6. Anemia. 7. Leukocytosis. Recc: -Tele -serial ecg's -Continue BB/ACEI/oral nitrates -Decrease lasix diuresis Problems: Consultation Date/Type/Reason Admit Date/Time Mar 22, 2016 at 11:48 Initial Consult Date 03/23/16 Type of Consultation: Cardiology Reason for Consultation CHF Referring Provider: BRISA PURVIS Exam/Review of Systems Vital Signs Vitals Vital Signs Date Time Temp Pulse Resp B/P Pulse Ox O2 Delivery O2 Flow Rate FiO2 03/24/16 14:19 3.0 03/24/16 14:19 102 22 96 Nasal Cannula 03/24/16 11:52 98.3 132/61 Intake and Output 03/23/16 03/23/16 03/24/16 15:00 23:00 07:00 Intake Total 650 ml 400 ml Balance 650 ml 400 ml Exam Review of Systems: CONSTITUTIONAL: No fevers, chills. PULMONARY: ongoing sob CARDIOVASCULAR: No chest pain/palpitations GASTROINTESTINAL: No nausea/vomiting. GENITOURINARY: No hematuria/dysuria. MUSCULOSKELETAL: No myagias/arthalgias. PSYCHIATRIC: The patient denies depression. NEUROLOGIC: No weakness Constitutional: alert Psych: no complaints Head: normocephalic ENMT: mucosa pink and moist Neck: jvd (9 cm water), supple Respiratory: diminished breath sounds Cardiovascular: regular rate and rhythm Gastrointestinal: non-tender, soft Musculoskeletal: muscle tone Extremities: edema (none) Neurological: other (No focal deficits) Results Result Diagram: 03/24/16 0520 03/24/16 0529 Results 24 hrs Laboratory Tests Test 03/23/16 17:42 03/23/16 20:25 03/24/16 05:20 03/24/16 05:29 Bedside Glucose 97 137 Basophils # 0.0 Basophils % 0.3 Blood Morphology Comment Eosinophils # 0.3 Eosinophils % 2.9 Hematocrit 36.2 L Hemoglobin 11.4 L Lymphocytes # 1.5 Lymphocytes % 13.6 L Mean Corpuscular Hemoglobin 23.1 L Mean Corpuscular Hemoglobin Concent 31.3 L Mean Corpuscular Volume 73.8 L Mean Platelet Volume 7.6 Monocytes # 1.1 H Monocytes % 9.4 Neutrophils # 8.4 H Neutrophils % 73.8 Nucleated Red Blood Cells # 0.0 Nucleated Red Blood Cells % 0.0 Platelet Count 343 Red Blood Count 4.91 Red Cell Distribution Width 21.6 H White Blood Count 11.4 H Anion Gap 18 H Blood Urea Nitrogen 44 #H Calcium Level 8.1 L Carbon Dioxide Level 36 H Chloride Level 92 L Creatinine 2.15 H Glucose Level 194 # Potassium Level 4.5 Sodium Level 141 Test 03/24/16 08:15 03/24/16 11:24 Bedside Glucose 264 H 184 Medications Medications Current Medications Insulin Glargine (Lantus) 45 unit QAM SC Last administered on 03/24/16at 08:32 ; Admin Dose 45 UNIT; Start 03/23/16 at 09:00 Linagliptin (Tradjenta) 5 mg DAILY PO Last administered on 03/24/16at 08:28; Admin Dose 5 MG; Start 03/23/16 at 09:00 Miscellaneous Information 1 ea NOTE XX ; Start 03/22/16 at 19:00 Glucose (Glutose) 15 gm Q15M PRN PO DECREASED GLUCOSE; Start 03/22/16 at 19:00 Glucose (Glutose) 22.5 gm Q15M PRN PO DECREASED GLUCOSE; Start 03/22/16 at 19: 00 Dextrose (D50w Syringe) 25 ml Q15M PRN IV DECREASED GLUCOSE; Start 03/22/16 at 19:00 Dextrose (D50w Syringe) 50 ml Q15M PRN IV DECREASED GLUCOSE; Start 03/22/16 at 19:00 Glucagon (Glucagen) 1 mg Q15M PRN IM DECREASED GLUCOSE; Start 03/22/16 at 19: 00 Glucose (Glutose) 15 gm Q15M PRN BUCCAL DECREASED GLUCOSE; Start 03/22/16 at 19:00 Diagnostic Test (Pha) (Accucheck) 1 ea 02 XX Last administered on 03/23/16at 03 :00; Admin Dose 1 EA; Start 03/23/16 at 02:00 Ondansetron HCl (Zofran Inj) 4 mg Q6H PRN IV NAUSEA AND/OR VOMITING; Start at 20:30 Acetaminophen (Tylenol Tab) 650 mg Q6H PRN PO PAIN LEVEL 1-3 OR FEVER Last administered on 03/24/16at 11:47; Admin Dose 650 MG; Start 03/22/16 at 20:30 Morphine Sulfate (morphine) 2 mg Q4H PRN IV PAIN LEVEL 7-10; Start 03/22/16 at 20:30 Famotidine (Pepcid Iv) 20 mg DAILY IV Last administered on 03/24/16at 08:32; Admin Dose 20 MG; Start 03/22/16 at 21:00 Enoxaparin Sodium (Lovenox) 30 mg DAILY SC Last administered on 03/24/16at 08: 31; Admin Dose 30 MG; Start 03/23/16 at 09:00 Albuterol/ Ipratropium (Duoneb) 3 ml ONCE PRN HHN WHEEZING AND SOB Last administered on 03/24/16at 14:16; Admin Dose 3 ML; Start 03/22/16 at 21:30 Clonidine (Catapres) 0.1 mg Q6H PRN PO ELEVATED SYSTOLIC BP; Start 03/23/16 at 04:03 Benazepril HCl (Lotensin) 20 mg DAILY PO Last administered on 03/24/16at 08:28 ; Admin Dose 20 MG; Start 03/23/16 at 09:00 Isosorbide Mononitrate (Imdur) 60 mg DAILY PO Last administered on 03/24/16at 08:28; Admin Dose 60 MG; Start 03/23/16 at 09:00 Metoprolol Succinate (Toprol Xl) 100 mg DAILY PO Last administered on at 08:34; Admin Dose 100 MG; Start 03/23/16 at 09:00 Insulin Human NPH (Humulin N) 38 unit QHS SC ; Start 03/24/16 at 21:00 Guaifenesin/ Dextromethorphan (Mucinex Dm) 1 tab BID PRN PO cough; Start 03/24 at 13:00 TERRIE DUNN Mar 24, 2016 16:14
[2016-03-24] MEDS: NPH, HUMAN INSULIN ISOPHANE 3ML VIAL SC SCH (21:02)
[2016-03-25] VITALS (12 sets, daily range): BP systolic 106–133; BP diastolic 50–72; PULSE 74–76; RESP 20
[2016-03-25] MEDS: ACCUCHECK AT 2AM (Patients on SS coverage) XX SCH (02:00)
--- NOTE | 2016-03-25 07:23 | CONS ---
Date/Time of Note Date/Time of Note DATE: 03/25/16 TIME: 07:16 Assessment/Plan Assessment/Plan Problems: (1) Acute on chronic renal insufficiency Status: Acute Comment: Historically her creatinine is range between 0.9 with a prior high of 1.7 in the past. She has abruptly had a rise in her serum creatinine the follow -up is pending today. Will be up to the primary team to follow this. If it persists a renal ultrasound might be a consideration. (2) Diastolic dysfunction with acute on chronic heart failure Status: Chronic Comment: She is on a cardioselective beta-fernando with an JOAQUINA inhibitor and diuretic therapy. She is doing fair from the standpoint. The question is raised about a superimposed issue causing her cough that might have set this off. I am going to go off go ahead and send off an influenza check (3) DM w/o complication type II, uncontrolled Status: Chronic Comment: She has history of significant insulin resistance syndrome due to her morbid obesity. She is on as much insulin sensitizers therapy as we can get away with. She is otherwise being modulated using insulin. This is a long- term problem of over 5 years (4) Shortness of breath Status: Acute Comment: As above this patient has a combination of morbid obesity obstructive sleep apnea diastolic heart failure acute and possibly a respiratory illness on top. She also states that she has briefly been on inhalers but was told by her doctor that she did not have asthma (5) Sleep apnea Status: Acute Comment: She carries this diagnosis. I will leave it up to the primary care team about whether or not they want to give her a BiPAP for sleep hours. Please note I witnessed her having rather significant apneic spells. Qualifiers: Sleep apnea type: obstructive Qualified Code: G47.33 - Obstructive sleep apnea syndrome (6) Morbid obesity with BMI of 45.0-49.9, adult Status: Chronic Comment: Calorie restriction. Given all the issues with her as an outpatient should actually be a consideration for bariatric surgery except I do not believe physiologically she is strong enough that type of procedure Consultation Date/Type/Reason Admit Date/Time Mar 22, 2016 at 11:48 Initial Consult Date 03/23/16 Type of Consultation: Endocrinology Reason for Consultation Diabetes mellitus type 2 with complications Referring Provider: BRISA PURVIS 24 HR Interval Summary Free Text/Dictation Patient initially asleep in bed snoring with apneic spells Detailed Summary Respiratory: cough (Cough 4 days and wheezing), shortness of breath, wheezing Cardiovascular: no complaints Gastrointestinal: no complaints Genitourinary: no complaints Exam/Review of Systems Vital Signs Vitals Vital Signs Date Time Temp Pulse Resp B/P Pulse Ox O2 Delivery O2 Flow Rate FiO2 03/25/16 06:51 98.4 66 20 122/55 97 03/24/16 21:00 Nasal Cannula 2.0 Intake and Output 03/24/16 03/24/16 03/25/16 15:00 23:00 07:00 Intake Total 600 ml 400 ml Output Total 620 ml 600 ml Balance -20 ml -200 ml Exam Easily awakened conversant oriented 3 Neck: non-tender, supple Respiratory: crackles/rales, wheezing Cardiovascular: nl pulses, regular rate and rhythm Gastrointestinal: nl liver, spleen, non-tender, soft Results Result Diagram: 03/24/16 0520 03/24/16 0529 Results 24 hrs Laboratory Tests Test 03/24/16 08:15 03/24/16 11:24 03/24/16 17:11 03/24/16 20:44 Bedside Glucose 264 H 184 99 229 H Test 03/25/16 02:57 Bedside Glucose 118 Medications Medications Current Medications Insulin Glargine (Lantus) 45 unit QAM SC Last administered on 03/24/16at 08:32 ; Admin Dose 45 UNIT; Start 03/23/16 at 09:00 Linagliptin (Tradjenta) 5 mg DAILY PO Last administered on 03/24/16at 08:28; Admin Dose 5 MG; Start 03/23/16 at 09:00 Miscellaneous Information 1 ea NOTE XX ; Start 03/22/16 at 19:00 Glucose (Glutose) 15 gm Q15M PRN PO DECREASED GLUCOSE; Start 03/22/16 at 19:00 Glucose (Glutose) 22.5 gm Q15M PRN PO DECREASED GLUCOSE; Start 03/22/16 at 19: 00 Dextrose (D50w Syringe) 25 ml Q15M PRN IV DECREASED GLUCOSE; Start 03/22/16 at 19:00 Dextrose (D50w Syringe) 50 ml Q15M PRN IV DECREASED GLUCOSE; Start 03/22/16 at 19:00 Glucagon (Glucagen) 1 mg Q15M PRN IM DECREASED GLUCOSE; Start 03/22/16 at 19: 00 Glucose (Glutose) 15 gm Q15M PRN BUCCAL DECREASED GLUCOSE; Start 03/22/16 at 19:00 Diagnostic Test (Pha) (Accucheck) 1 ea 02 XX Last administered on 03/25/16at 02 :00; Admin Dose 1 EA; Start 03/23/16 at 02:00 Ondansetron HCl (Zofran Inj) 4 mg Q6H PRN IV NAUSEA AND/OR VOMITING; Start at 20:30 Acetaminophen (Tylenol Tab) 650 mg Q6H PRN PO PAIN LEVEL 1-3 OR FEVER Last administered on 03/24/16at 11:47; Admin Dose 650 MG; Start 03/22/16 at 20:30 Morphine Sulfate (morphine) 2 mg Q4H PRN IV PAIN LEVEL 7-10; Start 03/22/16 at 20:30 Famotidine (Pepcid Iv) 20 mg DAILY IV Last administered on 03/24/16 08:32; Admin Dose 20 MG; Start 03/22/16 at 21:00 Enoxaparin Sodium (Lovenox) 30 mg DAILY SC Last administered on 03/24/16 08: 31; Admin Dose 30 MG; Start 03/23/16 at 09:00 Albuterol/ Ipratropium (Duoneb) 3 ml ONCE PRN HHN WHEEZING AND SOB Last administered on 03/24/16at 14:16; Admin Dose 3 ML; Start 03/22/16 at 21:30 Clonidine (Catapres) 0.1 mg Q6H PRN PO ELEVATED SYSTOLIC BP; Start 03/23/16 at 04:03 Benazepril HCl (Lotensin) 20 mg DAILY PO Last administered on 03/24/16 08:28 ; Admin Dose 20 MG; Start 03/23/16 at 09:00 Isosorbide Mononitrate (Imdur) 60 mg DAILY PO Last administered on 03/24/16 08:28; Admin Dose 60 MG; Start 03/23/16 at 09:00 Metoprolol Succinate (Toprol Xl) 100 mg DAILY PO Last administered on 08:34; Admin Dose 100 MG; Start 03/23/16 at 09:00 Insulin Human NPH (Humulin N) 38 unit QHS SC Last administered on 12/30/16at 21 :02; Admin Dose 38 UNIT; Start 03/24/16 at 21:00 Guaifenesin/ Dextromethorphan (Mucinex Dm) 1 tab BID PRN PO cough; Start 03/24 at 13:00 Furosemide (Lasix) 20 mg DAILY IV ; Start 03/25/16 at 09:00 IVA TENORIO MD Mar 25, 2016 07:23
[2016-03-25] MEDS ORDERED: MONTELUKAST 10 MG TAB PO ONE (07:30)
[2016-03-25 07:32] LABS: POTASSIUM 4.2 mmol/L (3.5-5.1)
[2016-03-25 07:35] LABS: CREATININE 1.59 mg/dl (0.44-1.00)
[2016-03-25 07:36] LABS: CALCIUM 8.7 mg/dl (8.4-10.2)
[2016-03-25] MEDS: INSULIN ASPART [NOVOLOG] 3 ML PEN SC SCH ×7 (07:55→20:56)
[2016-03-25] MEDS: FAMOTIDINE 20 MG INJ IV SCH (09:01)
[2016-03-25] MEDS: ISOSORBIDE MONONITRATE(SR)60 MG TAB PO SCH (09:02)
[2016-03-25] MEDS: FUROSEMIDE 20 MG INJ IV SCH (09:02)
[2016-03-25] MEDS: BENAZEPRIL 20 MG TAB PO SCH (09:03)
[2016-03-25] MEDS: LINAGLIPTIN 5 MG TABLET PO SCH (09:03)
[2016-03-25] MEDS: METOPROLOL (XL) 50 MG TAB PO SCH ×2 (09:04→20:58)
[2016-03-25] MEDS: INSULIN GLARGINE [LANtus] 3 ML PEN SC SCH (09:22)
[2016-03-25] MEDS: ENOXAPARIN 30 MG/0.3 ML SYG SC SCH (09:33)
--- NOTE | 2016-03-25 09:47 | PN ---
Date/Time of Note Date/Time of Note DATE: 03/25/16 TIME: 09:46 Assessment/Plan VTE Prophylaxis VTE Prophylaxis Intervention: LMWH Lines/Catheters IV Catheter Type (from Nrs): Saline Lock Urinary Cath still in place: Yes Reason Cath still needed: skin wounds contaminated by urine Assessment/Plan Chief Complaint/Hosp Course 1) congestive heart failure - IV lasix - appreciate cardiolgy input - check 2d echo 2) diabetes - monitor blood sugar Problems: Subjective 24 Hr Interval Summary Free Text/Dictation Patient feels better but still has shortness of breath Exam/Review of Systems Vital Signs Vitals Vital Signs Date Time Temp Pulse Resp B/P Pulse Ox O2 Delivery O2 Flow Rate FiO2 03/25/16 08:02 74 03/25/16 06:51 98.4 20 122/55 97 03/24/16 21:00 Nasal Cannula 2.0 Intake and Output 03/24/16 03/24/16 03/25/16 15:00 23:00 07:00 Intake Total 600 ml 400 ml Output Total 620 ml 600 ml Balance -20 ml -200 ml Exam Constitutional: obese, well developed Neck: supple Respiratory: diminished breath sounds, wheezing Cardiovascular: regular rate and rhythm Gastrointestinal: non-tender, soft Extremities: normal pulses Results Result Diagram: 03/24/16 0520 03/25/16 0605 Results 24 hrs Laboratory Tests Test 03/24/16 11:24 03/24/16 17:11 03/24/16 20:44 03/25/16 02:57 Bedside Glucose 184 99 229 H 118 Test 03/25/16 06:05 03/25/16 08:18 Anion Gap 15 B-Type Natriuretic Peptide 262 H Blood Urea Nitrogen 51 H Calcium Level 8.7 Carbon Dioxide Level 35 H Chloride Level 95 L Creatinine 1.59 H Glucose Level 111 # Potassium Level 4.2 Sodium Level 141 Bedside Glucose 136 Medications Medications Current Medications Insulin Glargine (Lantus) 45 unit QAM SC Last administered on 03/25/16at 09:22 ; Admin Dose 45 UNIT; Start 03/23/16 at 09:00 Linagliptin (Tradjenta) 5 mg DAILY PO Last administered on 03/25/16at 09:03; Admin Dose 5 MG; Start 03/23/16 at 09:00 Miscellaneous Information 1 ea NOTE XX ; Start 03/22/16 at 19:00 Glucose (Glutose) 15 gm Q15M PRN PO DECREASED GLUCOSE; Start 03/22/16 at 19:00 Glucose (Glutose) 22.5 gm Q15M PRN PO DECREASED GLUCOSE; Start 03/22/16 at 19: 00 Dextrose (D50w Syringe) 25 ml Q15M PRN IV DECREASED GLUCOSE; Start 03/22/16 at 19:00 Dextrose (D50w Syringe) 50 ml Q15M PRN IV DECREASED GLUCOSE; Start 03/22/16 at 19:00 Glucagon (Glucagen) 1 mg Q15M PRN IM DECREASED GLUCOSE; Start 03/22/16 at 19: 00 Glucose (Glutose) 15 gm Q15M PRN BUCCAL DECREASED GLUCOSE; Start 03/22/16 at 19:00 Diagnostic Test (Pha) (Accucheck) 1 ea 02 XX Last administered on 03/25/16at 02 :00; Admin Dose 1 EA; Start 03/23/16 at 02:00 Ondansetron HCl (Zofran Inj) 4 mg Q6H PRN IV NAUSEA AND/OR VOMITING; Start at 20:30 Acetaminophen (Tylenol Tab) 650 mg Q6H PRN PO PAIN LEVEL 1-3 OR FEVER Last administered on 03/24/16at 11:47; Admin Dose 650 MG; Start 03/22/16 at 20:30 Morphine Sulfate (morphine) 2 mg Q4H PRN IV PAIN LEVEL 7-10; Start 03/22/16 at 20:30 Famotidine (Pepcid Iv) 20 mg DAILY IV Last administered on 03/25/16at 09:01; Admin Dose 20 MG; Start 03/22/16 at 21:00 Enoxaparin Sodium (Lovenox) 30 mg DAILY SC Last administered on 03/25/16at 09: 33; Admin Dose 30 MG; Start 03/23/16 at 09:00 Albuterol/ Ipratropium (Duoneb) 3 ml ONCE PRN HHN WHEEZING AND SOB Last administered on 03/24/16at 14:16; Admin Dose 3 ML; Start 03/22/16 at 21:30 Clonidine (Catapres) 0.1 mg Q6H PRN PO ELEVATED SYSTOLIC BP; Start 03/23/16 at 04:03 Benazepril HCl (Lotensin) 20 mg DAILY PO Last administered on 12/31/16at 09:03 ; Admin Dose 20 MG; Start 03/23/16 at 09:00 Isosorbide Mononitrate (Imdur) 60 mg DAILY PO Last administered on 03/25/16at 09:02; Admin Dose 60 MG; Start 03/23/16 at 09:00 Insulin Human NPH (Humulin N) 38 unit QHS SC Last administered on 03/24/16at 21 :02; Admin Dose 38 UNIT; Start 03/24/16 at 21:00 Guaifenesin/ Dextromethorphan (Mucinex Dm) 1 tab BID PRN PO cough; Start 03/24 at 13:00 Furosemide (Lasix) 20 mg DAILY IV Last administered on 03/25/16at 09:02; Admin Dose 20 MG; Start 03/25/16 at 09:00 Metoprolol Succinate (Toprol Xl) 50 mg BID PO Last administered on 03/25/16at 09:04; Admin Dose 50 MG; Start 03/25/16 at 09:00 Montelukast Sodium (Singulair) 10 mg HS PO ; Start 03/25/16 at 21:00 BRISA PURVIS Mar 25, 2016 09:46
--- NOTE | 2016-03-25 11:26 | CONS ---
Date/Time of Note Date/Time of Note DATE: 03/25/16 TIME: 11:24 Assessment/Plan Assessment/Plan Chief Complaint/Hosp Course IMPRESSION: 1. Congestive heart failure, diastolic, acute on chronic by echocardiogram 2015. 2. Hypertensive urgency/emergency, currently improved on most recent vital sign assessment. 3. Shortness of breath secondary to #1. 4. Diabetes mellitus. 5. ARF-slowly improving 6. Anemia. 7. Leukocytosis. 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 PULMONARY: mild sob CARDIOVASCULAR: No chest pain/palpitations GASTROINTESTINAL: No nausea/vomiting. GENITOURINARY: No hematuria/dysuria. MUSCULOSKELETAL: No myagias/arthalgias. PSYCHIATRIC: The patient denies depression. NEUROLOGIC: lethargic Constitutional: other (sleeping) Head: normocephalic ENMT: mucosa pink and moist Neck: jvd (9 cm water), supple Respiratory: diminished breath sounds (at bases/B) Cardiovascular: regular rate and rhythm Gastrointestinal: non-tender, other (obese), soft Musculoskeletal: muscle tone (normal) Extremities: edema (trace/Bilateral LE) Neurological: lethargic Results Result Diagram: 03/24/16 0520 03/25/16 0605 Results 24 hrs Laboratory Tests Test 03/24/16 17:11 03/24/16 20:44 03/25/16 02:57 03/25/16 06:05 Bedside Glucose 99 229 H 118 Anion Gap 15 B-Type Natriuretic Peptide 262 H Blood Urea Nitrogen 51 H Calcium Level 8.7 Carbon Dioxide Level 35 H Chloride Level 95 L Creatinine 1.59 H Glucose Level 111 # Potassium Level 4.2 Sodium Level 141 Test 03/25/16 08:18 Bedside Glucose 136 Medications Medications Current Medications Insulin Glargine (Lantus) 45 unit QAM SC Last administered on 03/25/16at 09:22 ; Admin Dose 45 UNIT; Start 03/23/16 at 09:00 Linagliptin (Tradjenta) 5 mg DAILY PO Last administered on 03/25/16at 09:03; Admin Dose 5 MG; Start 03/23/16 at 09:00 Miscellaneous Information 1 ea NOTE XX ; Start 03/22/16 at 19:00 Glucose (Glutose) 15 gm Q15M PRN PO DECREASED GLUCOSE; Start 03/22/16 at 19:00 Glucose (Glutose) 22.5 gm Q15M PRN PO DECREASED GLUCOSE; Start 03/22/16 at 19: 00 Dextrose (D50w Syringe) 25 ml Q15M PRN IV DECREASED GLUCOSE; Start 03/22/16 at 19:00 Dextrose (D50w Syringe) 50 ml Q15M PRN IV DECREASED GLUCOSE; Start 03/22/16 at 19:00 Glucagon (Glucagen) 1 mg Q15M PRN IM DECREASED GLUCOSE; Start 03/22/16 at 19: 00 Glucose (Glutose) 15 gm Q15M PRN BUCCAL DECREASED GLUCOSE; Start 03/22/16 at 19:00 Diagnostic Test (Pha) (Accucheck) 1 ea 02 XX Last administered on 03/25/16at 02 :00; Admin Dose 1 EA; Start 03/23/16 at 02:00 Ondansetron HCl (Zofran Inj) 4 mg Q6H PRN IV NAUSEA AND/OR VOMITING; Start at 20:30 Acetaminophen (Tylenol Tab) 650 mg Q6H PRN PO PAIN LEVEL 1-3 OR FEVER Last administered on 03/24/16at 11:47; Admin Dose 650 MG; Start 03/22/16 at 20:30 Morphine Sulfate (morphine) 2 mg Q4H PRN IV PAIN LEVEL 7-10; Start 03/22/16 at 20:30 Famotidine (Pepcid Iv) 20 mg DAILY IV Last administered on 03/25/16at 09:01; Admin Dose 20 MG; Start 03/22/16 at 21:00 Enoxaparin Sodium (Lovenox) 30 mg DAILY SC Last administered on 03/25/16at 09: 33; Admin Dose 30 MG; Start 03/23/16 at 09:00 Albuterol/ Ipratropium (Duoneb) 3 ml ONCE PRN HHN WHEEZING AND SOB Last administered on 03/24/16at 14:16; Admin Dose 3 ML; Start 03/22/16 at 21:30 Clonidine (Catapres) 0.1 mg Q6H PRN PO ELEVATED SYSTOLIC BP; Start 03/23/16 at 04:03 Benazepril HCl (Lotensin) 20 mg DAILY PO Last administered on 03/25/16at 09:03 ; Admin Dose 20 MG; Start 03/23/16 at 09:00 Isosorbide Mononitrate (Imdur) 60 mg DAILY PO Last administered on 03/25/16at 09:02; Admin Dose 60 MG; Start 03/23/16 at 09:00 Insulin Human NPH (Humulin N) 38 unit QHS SC Last administered on 03/24/16at 21 :02; Admin Dose 38 UNIT; Start 03/24/16 at 21:00 Guaifenesin/ Dextromethorphan (Mucinex Dm) 1 tab BID PRN PO cough; Start 03/24 at 13:00 Furosemide (Lasix) 20 mg DAILY IV Last administered on 03/25/16at 09:02; Admin Dose 20 MG; Start 03/25/16 at 09:00 Metoprolol Succinate (Toprol Xl) 50 mg BID PO Last administered on 03/25/16at 09:04; Admin Dose 50 MG; Start 03/25/16 at 09:00 Montelukast Sodium (Singulair) 10 mg HS PO ; Start 03/25/16 at 21:00 TERRIE DUNN Mar 25, 2016 11:26
[2016-03-25] MEDS: LEVALBUTEROL (NEB) 1.25 MG/0.5 ML AMP HHN PRN (20:06)
[2016-03-25] MEDS: MONTELUKAST 10 MG TAB PO SCH (20:57)
[2016-03-25] MEDS: NPH, HUMAN INSULIN ISOPHANE 3ML VIAL SC SCH (21:04)
[2016-03-26] VITALS (12 sets, daily range): BP systolic 105–140; BP diastolic 52–60; PULSE 68–75; RESP 15–20
[2016-03-26] MEDS: ACCUCHECK AT 2AM (Patients on SS coverage) XX SCH (02:00)
[2016-03-26] MEDS: INSULIN ASPART [NOVOLOG] 3 ML PEN SC SCH ×7 (07:55→21:15)
--- NOTE | 2016-03-26 09:16 | CONS ---
Date/Time of Note Date/Time of Note DATE: 03/26/16 TIME: 09:12 Assessment/Plan Assessment/Plan Problems: (1) Diastolic dysfunction with acute on chronic heart failure Status: Chronic Comment: She has improved significantly. I am suspect a portion of this was due to volume retention however she also had a acute bronchitis which accounts for the other issues listed below (2) DM w/o complication type II, uncontrolled Status: Chronic Comment: With the adjustments to regimen her sugars are much better all as well as with the treatment of the underlying inflammatory issues (3) Morbid obesity with BMI of 45.0-49.9, adult Status: Chronic Comment: Re-counseled (4) Hypertension Status: Acute Comment: Adequate control with medication Qualifiers: Hypertension type: essential hypertension Qualified Code: I10 - Essential hypertension (5) Acute on chronic renal insufficiency Status: Acute Comment: Improving. Will order chemistry panel for the morning (6) Sleep apnea Status: Acute Comment: Counseled on need to use her CPAP Qualifiers: Sleep apnea type: obstructive Qualified Code: G47.33 - Obstructive sleep apnea syndrome Consultation Date/Type/Reason Admit Date/Time Mar 22, 2016 at 11:48 Initial Consult Date 03/23/16 Type of Consultation: Endocrinology Reason for Consultation Diabetes mellitus type 2; morbid obesity; obstructive sleep apnea; Referring Provider: BRISA PURVIS 24 HR Interval Summary Constitutional: improved Detailed Summary Respiratory: cough (Cough persists but is improving there is less sputum production), wheezing (Wheezing has improved) Cardiovascular: no complaints Gastrointestinal: no complaints Exam/Review of Systems Vital Signs Vitals Vital Signs Date Time Temp Pulse Resp B/P Pulse Ox O2 Delivery O2 Flow Rate FiO2 03/26/16 08:21 68 03/26/16 06:52 97.7 20 113/56 99 03/25/16 21:42 Nasal Cannula 2.0 Intake and Output 03/25/16 03/25/16 03/26/16 15:00 23:00 07:00 Intake Total 550 ml 200 ml Balance 550 ml 200 ml Exam Constitutional: alert, oriented Respiratory: normal air movement, wheezing (Wheezing is significantly better to this examiner) Cardiovascular: nl pulses, regular rate and rhythm Gastrointestinal: nl liver, spleen, non-tender, soft Results Result Diagram: 03/24/16 0520 03/25/16 0605 Results 24 hrs Laboratory Tests Test 03/25/16 11:40 03/25/16 17:58 03/25/16 20:54 03/26/16 05:16 Bedside Glucose 132 117 183 142 Test 03/26/16 07:58 Bedside Glucose 172 Medications Medications Current Medications Insulin Glargine (Lantus) 45 unit QAM SC Last administered on 03/25/16at 09:22 ; Admin Dose 45 UNIT; Start 03/23/16 at 09:00 Linagliptin (Tradjenta) 5 mg DAILY PO Last administered on 03/25/16at 09:03; Admin Dose 5 MG; Start 03/23/16 at 09:00 Miscellaneous Information 1 ea NOTE XX ; Start 03/22/16 at 19:00 Glucose (Glutose) 15 gm Q15M PRN PO DECREASED GLUCOSE; Start 03/22/16 at 19:00 Glucose (Glutose) 22.5 gm Q15M PRN PO DECREASED GLUCOSE; Start 03/22/16 at 19: 00 Dextrose (D50w Syringe) 25 ml Q15M PRN IV DECREASED GLUCOSE; Start 03/22/16 at 19:00 Dextrose (D50w Syringe) 50 ml Q15M PRN IV DECREASED GLUCOSE; Start 03/22/16 at 19:00 Glucagon (Glucagen) 1 mg Q15M PRN IM DECREASED GLUCOSE; Start 03/22/16 at 19: 00 Glucose (Glutose) 15 gm Q15M PRN BUCCAL DECREASED GLUCOSE; Start 03/22/16 at 19:00 Diagnostic Test (Pha) (Accucheck) 1 ea 02 XX Last administered on 03/25/16at 02 :00; Admin Dose 1 EA; Start 03/23/16 at 02:00 Ondansetron HCl (Zofran Inj) 4 mg Q6H PRN IV NAUSEA AND/OR VOMITING; Start at 20:30 Acetaminophen (Tylenol Tab) 650 mg Q6H PRN PO PAIN LEVEL 1-3 OR FEVER Last administered on 03/24/16at 11:47; Admin Dose 650 MG; Start 03/22/16 at 20:30 Morphine Sulfate (morphine) 2 mg Q4H PRN IV PAIN LEVEL 7-10; Start 03/22/16 at 20:30 Famotidine (Pepcid Iv) 20 mg DAILY IV Last administered on 03/25/16at 09:01; Admin Dose 20 MG; Start 03/22/16 at 21:00 Enoxaparin Sodium (Lovenox) 30 mg DAILY SC Last administered on 03/25/16 09: 33; Admin Dose 30 MG; Start 03/23/16 at 09:00 Albuterol/ Ipratropium (Duoneb) 3 ml ONCE PRN HHN WHEEZING AND SOB Last administered on 03/24/16at 14:16; Admin Dose 3 ML; Start 03/22/16 at 21:30 Clonidine (Catapres) 0.1 mg Q6H PRN PO ELEVATED SYSTOLIC BP; Start 03/23/16 at 04:03 Benazepril HCl (Lotensin) 20 mg DAILY PO Last administered on 03/25/16 09:03 ; Admin Dose 20 MG; Start 03/23/16 at 09:00 Isosorbide Mononitrate (Imdur) 60 mg DAILY PO Last administered on 03/25/16at 09:02; Admin Dose 60 MG; Start 03/23/16 at 09:00 Insulin Human NPH (Humulin N) 38 unit QHS SC Last administered on 03/25/16at 21 :04; Admin Dose 38 UNIT; Start 03/24/16 at 21:00 Guaifenesin/ Dextromethorphan (Mucinex Dm) 1 tab BID PRN PO cough; Start 03/24 at 13:00 Furosemide (Lasix) 20 mg DAILY IV Last administered on 03/25/16at 09:02; Admin Dose 20 MG; Start 03/25/16 at 09:00 Metoprolol Succinate (Toprol Xl) 50 mg BID PO Last administered on 03/25/16at 20:58; Admin Dose 50 MG; Start 03/25/16 at 09:00 Montelukast Sodium (Singulair) 10 mg HS PO Last administered on 03/25/16at 20: 57; Admin Dose 10 MG; Start 03/25/16 at 21:00 IVA TENORIO MD Mar 26, 2016 09:16
[2016-03-26] MEDS: ISOSORBIDE MONONITRATE(SR)60 MG TAB PO SCH (10:02)
[2016-03-26] MEDS: METOPROLOL (XL) 50 MG TAB PO SCH ×2 (10:03→21:09)
[2016-03-26] MEDS: LINAGLIPTIN 5 MG TABLET PO SCH (10:03)
[2016-03-26] MEDS: BENAZEPRIL 20 MG TAB PO SCH (10:08)
[2016-03-26] MEDS: INSULIN GLARGINE [LANtus] 3 ML PEN SC SCH (10:12)
[2016-03-26] MEDS: FAMOTIDINE 20 MG INJ IV SCH (10:14)
[2016-03-26] MEDS: FUROSEMIDE 20 MG INJ IV SCH (10:15)
[2016-03-26] MEDS: ENOXAPARIN 30 MG/0.3 ML SYG SC SCH (10:17)
--- NOTE | 2016-03-26 12:00 | CONS ---
Date/Time of Note Date/Time of Note DATE: 03/26/16 TIME: 11:58 Assessment/Plan Assessment/Plan Chief Complaint/Hosp Course IMPRESSION: 1. Congestive heart failure, diastolic, acute on chronic by echocardiogram 2015. 2. Hypertensive urgency/emergency, currently improved on most recent vital sign assessment. 3. Shortness of breath secondary to #1. 4. Diabetes mellitus. 5. ARF-slowly improving 6. Anemia. 7. Leukocytosis. 8.DAVID Recc: -Tele -serial ecg's -Continue BB/ACEI/oral nitrates -Continue gentle daily lasix diuresis and follow employment counselor closely and volume status Problems: Consultation Date/Type/Reason Admit Date/Time Mar 26, 2016 at 10:33 Initial Consult Date 03/23/16 Type of Consultation: Cardiology Reason for Consultation CHF Referring Provider: BRISA PURVIS Exam/Review of Systems Vital Signs Vitals Vital Signs Date Time Temp Pulse Resp B/P Pulse Ox O2 Delivery O2 Flow Rate FiO2 03/26/16 11:20 98.5 73 20 125/58 99 03/25/16 21:42 Nasal Cannula 2.0 Intake and Output 03/25/16 03/25/16 03/26/16 15:00 23:00 07:00 Intake Total 550 ml 200 ml Balance 550 ml 200 ml Exam Review of Systems: CONSTITUTIONAL: No fevers, chills. PULMONARY: mild sob-improving CARDIOVASCULAR: No chest pain/palpitations GASTROINTESTINAL: No nausea/vomiting. GENITOURINARY: No hematuria/dysuria. MUSCULOSKELETAL: No myagias/arthalgias. PSYCHIATRIC: The patient denies depression. NEUROLOGIC: No weakness Constitutional: alert Psych: no complaints Head: normocephalic ENMT: mucosa pink and moist Neck: jvd (9 cm water), supple Respiratory: diminished breath sounds (at bases/B) Cardiovascular: regular rate and rhythm Gastrointestinal: non-tender, soft Musculoskeletal: muscle tone (normal) Extremities: edema (none) Neurological: other (Nop fopcal deficits) Results Result Diagram: 03/24/16 0520 03/25/16 0605 Results 24 hrs Laboratory Tests Test 03/25/16 17:58 03/25/16 20:54 03/26/16 05:16 03/26/16 07:58 Bedside Glucose 117 183 142 172 Medications Medications Current Medications Insulin Glargine (Lantus) 45 unit QAM SC Last administered on 03/26/16 10:12; Admin Dose 45 UNIT; Start 03/23/16 at 09:00 Linagliptin (Tradjenta) 5 mg DAILY PO Last administered on 03/26/16 10:03; Admin Dose 5 MG; Start 03/23/16 at 09:00 Miscellaneous Information 1 ea NOTE XX ; Start 03/22/16 at 19:00 Glucose (Glutose) 15 gm Q15M PRN PO DECREASED GLUCOSE; Start 03/22/16 at 19:00 Glucose (Glutose) 22.5 gm Q15M PRN PO DECREASED GLUCOSE; Start 03/22/16 at 19: 00 Dextrose (D50w Syringe) 25 ml Q15M PRN IV DECREASED GLUCOSE; Start 03/22/16 at 19:00 Dextrose (D50w Syringe) 50 ml Q15M PRN IV DECREASED GLUCOSE; Start 03/22/16 at 19:00 Glucagon (Glucagen) 1 mg Q15M PRN IM DECREASED GLUCOSE; Start 03/22/16 at 19: 00 Glucose (Glutose) 15 gm Q15M PRN BUCCAL DECREASED GLUCOSE; Start 03/22/16 at 19:00 Diagnostic Test (Pha) (Accucheck) 1 ea 02 XX Last administered on 03/25/16at 02 :00; Admin Dose 1 EA; Start 03/23/16 at 02:00 Ondansetron HCl (Zofran Inj) 4 mg Q6H PRN IV NAUSEA AND/OR VOMITING; Start at 20:30 Acetaminophen (Tylenol Tab) 650 mg Q6H PRN PO PAIN LEVEL 1-3 OR FEVER Last administered on 03/24/16at 11:47; Admin Dose 650 MG; Start 03/22/16 at 20:30 Morphine Sulfate (morphine) 2 mg Q4H PRN IV PAIN LEVEL 7-10; Start 03/22/16 at 20:30 Famotidine (Pepcid Iv) 20 mg DAILY IV Last administered on 03/26/16 10:14; Admin Dose 20 MG; Start 03/22/16 at 21:00 Enoxaparin Sodium (Lovenox) 30 mg DAILY SC Last administered on 03/26/16 10:17 ; Admin Dose 30 MG; Start 03/23/16 at 09:00 Albuterol/ Ipratropium (Duoneb) 3 ml ONCE PRN HHN WHEEZING AND SOB Last administered on 03/24/16at 14:16; Admin Dose 3 ML; Start 03/22/16 at 21:30 Clonidine (Catapres) 0.1 mg Q6H PRN PO ELEVATED SYSTOLIC BP; Start 03/23/16 at 04:03 Benazepril HCl (Lotensin) 20 mg DAILY PO Last administered on 03/26/16 10:08; Admin Dose 20 MG; Start 03/23/16 at 09:00 Isosorbide Mononitrate (Imdur) 60 mg DAILY PO Last administered on 03/26/16 10: 02; Admin Dose 60 MG; Start 03/23/16 at 09:00 Insulin Human NPH (Humulin N) 38 unit QHS SC Last administered on 03/25/16at 21 :04; Admin Dose 38 UNIT; Start 03/24/16 at 21:00 Guaifenesin/ Dextromethorphan (Mucinex Dm) 1 tab BID PRN PO cough; Start 03/24 at 13:00 Furosemide (Lasix) 20 mg DAILY IV Last administered on 03/26/16 10:15; Admin Dose 20 MG; Start 03/25/16 at 09:00 Metoprolol Succinate (Toprol Xl) 50 mg BID PO Last administered on 03/26/16 10: 03; Admin Dose 50 MG; Start 03/25/16 at 09:00 Montelukast Sodium (Singulair) 10 mg HS PO Last administered on 03/25/16at 20: 57; Admin Dose 10 MG; Start 03/25/16 at 21:00 TERRIE DUNN Mar 26, 2016 12:00
--- NOTE | 2016-03-26 12:09 | PN ---
Date/Time of Note Date/Time of Note DATE: 03/26/16 TIME: 12:07 Assessment/Plan VTE Prophylaxis VTE Prophylaxis Intervention: other Lines/Catheters IV Catheter Type (from Nrs): Saline Lock Urinary Cath still in place: Yes Reason Cath still needed: skin wounds contaminated by urine Assessment/Plan Chief Complaint/Hosp Course 1) congestive heart failure, is improved - IV lasix 2) diabetes - monitor blood sugar Problems: Subjective 24 Hr Interval Summary Free Text/Dictation Patient is doing better, breathing better Exam/Review of Systems Vital Signs Vitals Vital Signs Date Time Temp Pulse Resp B/P Pulse Ox O2 Delivery O2 Flow Rate FiO2 03/26/16 11:20 98.5 73 20 125/58 99 03/25/16 21:42 Nasal Cannula 2.0 Intake and Output 03/25/16 03/25/16 03/26/16 15:00 23:00 07:00 Intake Total 550 ml 200 ml Balance 550 ml 200 ml Exam Constitutional: alert, well developed Head: atraumatic, normocephalic Neck: supple Cardiovascular: regular rate and rhythm Gastrointestinal: non-tender, soft Extremities: normal pulses Results Result Diagram: 03/24/16 0520 03/25/16 0605 Results 24 hrs Laboratory Tests Test 03/25/16 17:58 03/25/16 20:54 03/26/16 05:16 03/26/16 07:58 Bedside Glucose 117 183 142 172 Medications Medications Current Medications Insulin Glargine (Lantus) 45 unit QAM SC Last administered on 03/26/16 10:12; Admin Dose 45 UNIT; Start 03/23/16 at 09:00 Linagliptin (Tradjenta) 5 mg DAILY PO Last administered on 03/26/16 10:03; Admin Dose 5 MG; Start 03/23/16 at 09:00 Miscellaneous Information 1 ea NOTE XX ; Start 03/22/16 at 19:00 Glucose (Glutose) 15 gm Q15M PRN PO DECREASED GLUCOSE; Start 03/22/16 at 19:00 Glucose (Glutose) 22.5 gm Q15M PRN PO DECREASED GLUCOSE; Start 03/22/16 at 19: 00 Dextrose (D50w Syringe) 25 ml Q15M PRN IV DECREASED GLUCOSE; Start 03/22/16 at 19:00 Dextrose (D50w Syringe) 50 ml Q15M PRN IV DECREASED GLUCOSE; Start 03/22/16 at 19:00 Glucagon (Glucagen) 1 mg Q15M PRN IM DECREASED GLUCOSE; Start 03/22/16 at 19: 00 Glucose (Glutose) 15 gm Q15M PRN BUCCAL DECREASED GLUCOSE; Start 03/22/16 at 19:00 Diagnostic Test (Pha) (Accucheck) 1 ea 02 XX Last administered on 03/25/16at 02 :00; Admin Dose 1 EA; Start 03/23/16 at 02:00 Ondansetron HCl (Zofran Inj) 4 mg Q6H PRN IV NAUSEA AND/OR VOMITING; Start at 20:30 Acetaminophen (Tylenol Tab) 650 mg Q6H PRN PO PAIN LEVEL 1-3 OR FEVER Last administered on 03/24/16at 11:47; Admin Dose 650 MG; Start 03/22/16 at 20:30 Morphine Sulfate (morphine) 2 mg Q4H PRN IV PAIN LEVEL 7-10; Start 03/22/16 at 20:30 Famotidine (Pepcid Iv) 20 mg DAILY IV Last administered on 03/26/16 10:14; Admin Dose 20 MG; Start 03/22/16 at 21:00 Enoxaparin Sodium (Lovenox) 30 mg DAILY SC Last administered on 03/26/16 10:17 ; Admin Dose 30 MG; Start 03/23/16 at 09:00 Albuterol/ Ipratropium (Duoneb) 3 ml ONCE PRN HHN WHEEZING AND SOB Last administered on 03/24/16at 14:16; Admin Dose 3 ML; Start 03/22/16 at 21:30 Clonidine (Catapres) 0.1 mg Q6H PRN PO ELEVATED SYSTOLIC BP; Start 03/23/16 at 04:03 Benazepril HCl (Lotensin) 20 mg DAILY PO Last administered on 03/26/16 10:08; Admin Dose 20 MG; Start 03/23/16 at 09:00 Isosorbide Mononitrate (Imdur) 60 mg DAILY PO Last administered on 03/26/16 10: 02; Admin Dose 60 MG; Start 03/23/16 at 09:00 Insulin Human NPH (Humulin N) 38 unit QHS SC Last administered on 03/25/16at 21 :04; Admin Dose 38 UNIT; Start 03/24/16 at 21:00 Guaifenesin/ Dextromethorphan (Mucinex Dm) 1 tab BID PRN PO cough; Start 03/24 at 13:00 Furosemide (Lasix) 20 mg DAILY IV Last administered on 03/26/16 10:15; Admin Dose 20 MG; Start 03/25/16 at 09:00 Metoprolol Succinate (Toprol Xl) 50 mg BID PO Last administered on 03/26/16 10: 03; Admin Dose 50 MG; Start 03/25/16 at 09:00 Montelukast Sodium (Singulair) 10 mg HS PO Last administered on 03/25/16at 20: 57; Admin Dose 10 MG; Start 03/25/16 at 21:00 BRISA PURVIS Mar 26, 2016 12:08
[2016-03-26] MEDS: MONTELUKAST 10 MG TAB PO SCH (21:07)
[2016-03-26] MEDS: NPH, HUMAN INSULIN ISOPHANE 3ML VIAL SC SCH (21:13)
[2016-03-27] VITALS (11 sets, daily range): BP systolic 117–135; BP diastolic 56–61; PULSE 65–80; RESP 15–18
[2016-03-27] MEDS: ACCUCHECK AT 2AM (Patients on SS coverage) XX SCH (02:00)
[2016-03-27 06:04] LABS: BASOPHILS % 0.1 % (0.0-2.0); EOSINOPHILS # 0.3 10^3/ul (0.0-0.5); HEMATOCRIT 34.8 % (37.0-47.0); LYMPHOCYTES # 1.5 10^3/ul (0.8-2.9); LYMPHOCYTES % 15.2 % (15.0-51.0); MEAN CORPUSCULAR HEMOGLOBIN 23.3 pg (29.0-33.0); MEAN CORPUSCULAR HGB CONC 31.5 g/dl (32.0-37.0); MEAN PLATELET VOLUME 7.2 fl (7.4-10.4); MONOCYTE # 0.7 10^3/ul (0.3-0.9); MONOCYTES % 6.8 % (0.0-11.0); NEUTROPHIL # 7.6 10^3/ul (1.6-7.5); NEUTROPHILS % 74.9 % (39.0-77.0); PLATELET COUNT 365 10^3/UL (140-440); RED BLOOD COUNT 4.71 10^6/ul (4.20-5.40); RED CELL DISTRIBUTION WIDTH 21.4 % (11.5-14.5); UNCORRECTED WBC 10.2 10^3/ul (4.8-10.8); WHITE BLOOD COUNT 10.2 10^3/ul (4.8-10.8)
[2016-03-27 06:11] LABS: CONDITION 1; LH ANALYZER COMMENTS 1
[2016-03-27 06:25] LABS: POTASSIUM 4.4 mmol/L (3.5-5.1)
[2016-03-27 06:27] LABS: CREATININE 1.17 mg/dl (0.44-1.00)
[2016-03-27] MEDS: INSULIN ASPART [NOVOLOG] 3 ML PEN SC SCH ×7 (07:55→20:54)
[2016-03-27] MEDS: GUAIFENESIN/DM (SR) TAB PO PRN (08:58)
[2016-03-27] MEDS: FAMOTIDINE 20 MG INJ IV SCH (08:58)
[2016-03-27] MEDS: ISOSORBIDE MONONITRATE(SR)60 MG TAB PO SCH (08:59)
[2016-03-27] MEDS: LINAGLIPTIN 5 MG TABLET PO SCH (08:59)
[2016-03-27] MEDS: BENAZEPRIL 20 MG TAB PO SCH (09:00)
[2016-03-27] MEDS: METOPROLOL (XL) 50 MG TAB PO SCH ×2 (09:00→20:50)
[2016-03-27] MEDS: FUROSEMIDE 20 MG INJ IV SCH (09:00)
[2016-03-27] MEDS: ENOXAPARIN 30 MG/0.3 ML SYG SC SCH (09:10)
[2016-03-27] MEDS: INSULIN GLARGINE [LANtus] 3 ML PEN SC SCH (09:14)
--- NOTE | 2016-03-27 10:58 | CONS ---
Date/Time of Note Date/Time of Note DATE: 03/27/16 TIME: 10:56 Assessment/Plan Assessment/Plan Chief Complaint/Hosp Course IMPRESSION: 1. Congestive heart failure, diastolic, acute on chronic by echocardiogram 2015. 2. Hypertensive urgency/emergency, currently improved on most recent vital sign assessment. 3. Shortness of breath secondary to #1. 4. Diabetes mellitus. 5. ARF-slowly improving 6. Anemia. 7. Leukocytosis. 8.DAVID Recc: -Tele -serial ecg's -Continue BB/ACEI/oral nitrates -Continue gentle daily lasix diuresis and follow precision devices inspector/tester closely and volume status with renal function improving -Check cxr today top assess for ongoing CHF Problems: Consultation Date/Type/Reason Admit Date/Time Mar 26, 2016 at 10:33 Initial Consult Date 03/23/16 Type of Consultation: Cardiology Reason for Consultation CHF Referring Provider: BRISA PURVIS Exam/Review of Systems Vital Signs Vitals Vital Signs Date Time Temp Pulse Resp B/P Pulse Ox O2 Delivery O2 Flow Rate FiO2 03/27/16 08:19 65 03/27/16 07:50 98.2 18 125/59 100 03/26/16 21:55 Nasal Cannula 2.0 Intake and Output 03/26/16 03/26/16 03/27/16 15:00 23:00 07:00 Intake Total 720 ml 300 ml Output Total 1200 ml Balance 720 ml -900 ml Exam Review of Systems: CONSTITUTIONAL: No fevers, chills. PULMONARY: improved sob CARDIOVASCULAR: No chest pain/palpitations GASTROINTESTINAL: No nausea/vomiting. GENITOURINARY: No hematuria/dysuria. MUSCULOSKELETAL: No myagias/arthalgias. PSYCHIATRIC: The patient denies depression. NEUROLOGIC: No weakness Constitutional: alert, oriented Psych: no complaints ENMT: mucosa pink and moist Neck: jvd (9 cm water), supple Respiratory: diminished breath sounds (at bases/B) Cardiovascular: regular rate and rhythm Gastrointestinal: non-tender, soft Musculoskeletal: muscle tone (normal) Extremities: edema (none) Neurological: other (No focal deficits) Results Result Diagram: 03/27/16 0454 03/27/16 0454 Results 24 hrs Laboratory Tests Test 03/26/16 12:06 03/26/16 17:17 03/26/16 21:06 03/27/16 02:20 Bedside Glucose 251 H 153 203 121 Test 03/27/16 04:54 03/27/16 08:15 Anion Gap 13 Basophils # 0.0 Basophils % 0.1 Blood Morphology Comment Blood Urea Nitrogen 49 H Calcium Level 9.0 Carbon Dioxide Level 34 H Chloride Level 100 Creatinine 1.17 H Eosinophils # 0.3 Eosinophils % 3.0 Glucose Level 103 Hematocrit 34.8 L Hemoglobin 11.0 L Lymphocytes # 1.5 Lymphocytes % 15.2 Mean Corpuscular Hemoglobin 23.3 L Mean Corpuscular Hemoglobin Concent 31.5 L Mean Corpuscular Volume 74.0 L Mean Platelet Volume 7.2 L Monocytes # 0.7 Monocytes % 6.8 Neutrophils # 7.6 H Neutrophils % 74.9 Nucleated Red Blood Cells # 0.0 Nucleated Red Blood Cells % 0.0 Platelet Count 365 Potassium Level 4.4 Red Blood Count 4.71 Red Cell Distribution Width 21.4 H Sodium Level 143 White Blood Count 10.2 Bedside Glucose 106 Medications Medications Current Medications Insulin Glargine (Lantus) 45 unit QAM SC Last administered on 03/27/16 09:14; Admin Dose 45 UNIT; Start 03/23/16 at 09:00 Linagliptin (Tradjenta) 5 mg DAILY PO Last administered on 03/27/16 08:59; Admin Dose 5 MG; Start 03/23/16 at 09:00 Miscellaneous Information 1 ea NOTE XX ; Start 03/22/16 at 19:00 Glucose (Glutose) 15 gm Q15M PRN PO DECREASED GLUCOSE; Start 03/22/16 at 19:00 Glucose (Glutose) 22.5 gm Q15M PRN PO DECREASED GLUCOSE; Start 03/22/16 at 19: 00 Dextrose (D50w Syringe) 25 ml Q15M PRN IV DECREASED GLUCOSE; Start 03/22/16 at 19:00 Dextrose (D50w Syringe) 50 ml Q15M PRN IV DECREASED GLUCOSE; Start 03/22/16 at 19:00 Glucagon (Glucagen) 1 mg Q15M PRN IM DECREASED GLUCOSE; Start 03/22/16 at 19: 00 Glucose (Glutose) 15 gm Q15M PRN BUCCAL DECREASED GLUCOSE; Start 03/22/16 at 19:00 Diagnostic Test (Pha) (Accucheck) 1 ea 02 XX Last administered on 03/25/16at 02 :00; Admin Dose 1 EA; Start 03/23/16 at 02:00 Ondansetron HCl (Zofran Inj) 4 mg Q6H PRN IV NAUSEA AND/OR VOMITING; Start at 20:30 Acetaminophen (Tylenol Tab) 650 mg Q6H PRN PO PAIN LEVEL 1-3 OR FEVER Last administered on 03/24/16at 11:47; Admin Dose 650 MG; Start 03/22/16 at 20:30 Morphine Sulfate (morphine) 2 mg Q4H PRN IV PAIN LEVEL 7-10; Start 03/22/16 at 20:30 Famotidine (Pepcid Iv) 20 mg DAILY IV Last administered on 03/27/16 08:58; Admin Dose 20 MG; Start 03/22/16 at 21:00 Enoxaparin Sodium (Lovenox) 30 mg DAILY SC Last administered on 03/27/16 09:10 ; Admin Dose 30 MG; Start 03/23/16 at 09:00 Albuterol/ Ipratropium (Duoneb) 3 ml ONCE PRN HHN WHEEZING AND SOB Last administered on 03/24/16at 14:16; Admin Dose 3 ML; Start 03/22/16 at 21:30 Clonidine (Catapres) 0.1 mg Q6H PRN PO ELEVATED SYSTOLIC BP; Start 03/23/16 at 04:03 Benazepril HCl (Lotensin) 20 mg DAILY PO Last administered on 03/26/16 10:08; Admin Dose 20 MG; Start 03/23/16 at 09:00 Isosorbide Mononitrate (Imdur) 60 mg DAILY PO Last administered on 03/27/16 08: 59; Admin Dose 60 MG; Start 03/23/16 at 09:00 Insulin Human NPH (Humulin N) 38 unit QHS SC Last administered on 03/26/16 21: 13; Admin Dose 38 UNIT; Start 03/24/16 at 21:00 Guaifenesin/ Dextromethorphan (Mucinex Dm) 1 tab BID PRN PO cough Last administered on 03/27/16 08:58; Admin Dose 1 TAB; Start 03/24/16 at 13:00 Furosemide (Lasix) 20 mg DAILY IV Last administered on 03/27/16 09:00; Admin Dose 20 MG; Start 03/25/16 at 09:00 Metoprolol Succinate (Toprol Xl) 50 mg BID PO Last administered on 03/26/16 21: 09; Admin Dose 50 MG; Start 03/25/16 at 09:00 Montelukast Sodium (Singulair) 10 mg HS PO Last administered on 03/26/16 21:07 ; Admin Dose 10 MG; Start 03/25/16 at 21:00 TERRIE DUNN Mar 27, 2016 10:58
--- NOTE | 2016-03-27 11:41 | RADRPT ---
PROCEDURE: XR Chest. CLINICAL INDICATION: Congestive heart failure TECHNIQUE: Chest AP portable COMPARISON: 03/22/2016 FINDINGS: The mediastinal structures are unremarkable. There is calcification of the thoracic aorta (consiste nt with atherosclerosis). The heart is normal in size and configuration. The pulmonary vascularity is normal. There is mild bibasilar subsegmental atelectasis. No consolidation is identified. The pleural spaces are unremarkable. There are senescent changes of the axial skeleton. IMPRESSION: Calcification of the thoracic aorta (consistent with atherosclerosis). Mild bibasilar subsegmental atelectasis RPTAT: [facility] .Harvinder Redman MD, MD Date Time Electronically viewed and signed by .Harvinder Redman MD, on 03/27/2016 11:40 .B/
[2016-03-27] MEDS ORDERED: ALBU8.5H3 INH (13:10)
--- NOTE | 2016-03-27 13:13 | DS ---
Date/Time of Note Date/Time of Note DATE: 03/27/16 TIME: 13:11 Discharge Summary Admission/Discharge Info Admit Date/Time Mar 26, 2016 at 10:33 Discharge Date/Time 03/27/16 Final Diagnosis 1) CHF 2) diabetes Patient Condition: Fair Consults cardiology endocrinology Hx of Present Illness Patient with history of diabetes, hyperension, congestive heart failure comes in with shortness of breath which she has had in the past. Hospital Course Patient with diabetes, CHF comes in with shortness of breath related to congestive heart failure. Patient was treated with diuretics and close monitoring of her blood sugar. She slowly improved and was at baseline at the time of discharge. Patient will go home and follow up with her primary care physician. IMPRESSION: 1. Congestive heart failure, diastolic, acute on chronic by echocardiogram 2015. 2. Hypertensive urgency/emergency, currently improved on most recent vital sign assessment. 3. Shortness of breath secondary to #1. 4. Diabetes mellitus. 5. ARF-slowly improving 6. Anemia. 7. Leukocytosis. 8.DAVID Recc: -Tele -serial ecg's -Continue BB/ACEI/oral nitrates -Continue gentle daily lasix diuresis and follow services tech closely and volume status with renal function improving -Check cxr today top assess for ongoing CHF Home Meds Active Scripts Potassium Chloride* (Potassium Chloride*) 20 Meq Tablet.er, 20 MEQ PO DAILY, # 30 TAB.SA Prov:ENRRIQUE AGUILAR 03/14/16 Furosemide* (Lasix*) 20 Mg Tablet, 40 MG PO BID, #60 TAB Prov:ENRRIQUE AGUILAR 03/14/16 Reported Medications Acetaminophen (PAIN & FEVER) 500 Mg Tablet, 1000 MG PO Q6, TAB 03/06/16 Insulin Glargine,Hum.rec.anlog (Jennie Mcintyre) 300 Unit/1 Ml Insuln.pen, 15 UNIT SQ QAM 03/06/16 Insulin Regular, Human (Humulin R U-500) 500 Unit/1 Ml Vial, 0 SQ TID, VIAL INJECT 33 UNITS-QAM & NOON, &13 UNITS IN DINNER 03/06/16 Pramlintide (Symlinpen 120) 2,700 Mcg/2.7 Ml Pen.injctr, 2700 MCG SC TID 03/06/16 Empagliflozin/Linagliptin (Glyxambi 25 mg-5 mg Tablet) 1 Each Tablet, 1 EACH PO QAM, TAB 03/06/16 Benazepril Hcl* (Benazepril Hcl*) 20 Mg Tablet, 20 MG PO DAILY, #30 TAB 03/06/16 Metoprolol Succinate* (Toprol XL*) 100 Mg Tab.sr.24h, 100 MG PO DAILY, #30 TAB 03/06/16 Isosorbide Mononitrate* (Isosorbide Mononitrate*) 60 Mg Tab.er.24h, 60 MG PO DAILY, TAB 03/06/16 Dorzolamide-Timolol* (Cosopt*) 2%-0.5% Soln, 1 DROP BOTH EYES BID, BOTTLE 12/18/15 Brimonidine Tartrate* (Brimonidine Tartrate*) 0.15%-10ML Drop Opht, 1 DROP BOTH EYES BID, #1 EA 12/18/15 Aripiprazole* (Abilify*) 10 Mg Tablet, 10 MG PO DAILY, #30 TAB 09/03/15 Clopidogrel Bisulfate* (Clopidogrel Bisulfate*) 75 Mg Tablet, 75 MG PO DAILY, TAB 11/28/14 Sertraline Hcl* (Zoloft*) 50 Mg Tablet, 50 MG PO DAILY, TAB 07/05/14 Atorvastatin* (Atorvastatin*) 40 Mg Tablet, 40 MG PO HS, TAB 05/07/14 Omeprazole* (Omeprazole*) 20 Mg Capsule.dr, 20 MG PO BID 09/28/12 Pending Labs Laboratory Tests Test 03/26/16 17:17 03/26/16 21:06 03/27/16 02:20 03/27/16 04:54 Bedside Glucose 153mg/dL (70-220) 203mg/dL (70-220) 121mg/dL (70-220) Anion Gap 13 (8-16) Basophils # 0.010^3/ul (0.0-0.1) Basophils % 0.1% (0.0-2.0) Blood Morphology Comment Blood Urea Nitrogen 49mg/dl (7-20) Calcium Level 9.0mg/dl (8.4-10.2) Carbon Dioxide Level 34mmol/L (21-31) Chloride Level 100mmol/L (97-110) Creatinine 1.17mg/dl (0.44-1.00) Eosinophils # 0.310^3/ul (0.0-0.5) Eosinophils % 3.0% (0.0-7.0) Glucose Level 103mg/dl (70-220) Hematocrit 34.8% (37.0-47.0) Hemoglobin 11.0g/dl (12.0-16.0) Lymphocytes # 1.510^3/ul (0.8-2.9) Lymphocytes % 15.2% (15.0-51.0) Mean Corpuscular Hemoglobin 23.3pg (29.0-33.0) Mean Corpuscular Hemoglobin Concent 31.5g/dl (32.0-37.0) Mean Corpuscular Volume 74.0fl (82.0-101.0) Mean Platelet Volume 7.2fl (7.4-10.4) Monocytes # 0.710^3/ul (0.3-0.9) Monocytes % 6.8% (0.0-11.0) Neutrophils # 7.610^3/ul (1.6-7.5) Neutrophils % 74.9% (39.0-77.0) Nucleated Red Blood Cells # 0.010^3/ul (0.0-0.0) Nucleated Red Blood Cells % 0.0/100WBC (0.0-0.0) Platelet Count 32688^3/UL (140-440) Potassium Level 4.4mmol/L (3.5-5.1) Red Blood Count 4.7110^6/ul (4.20-5.40) Red Cell Distribution Width 21.4% (11.5-14.5) Sodium Level 143mmol/L (135-144) White Blood Count 10.210^3/ul (4.8-10.8) Test 03/27/16 08:15 03/27/16 12:00 Bedside Glucose 106mg/dL (70-220) 58mg/dL (70-220) BRISA PURVIS Mar 27, 2016 13:13
--- NOTE | 2016-03-27 13:45 | CONS ---
Date/Time of Note Date/Time of Note DATE: 03/27/16 TIME: 13:44 Assessment/Plan Assessment/Plan Problems: (1) DM w/o complication type II, uncontrolled Status: Chronic Comment: Diabetic control is now much better with the adjustments in the regimen. If the patient successfully goes for weight loss protocol the neural that is a reasonable expectation that her insulin needs will drop and dropped rapidly. This will need to be followed up carefully as an outpatient Consultation Date/Type/Reason Admit Date/Time Mar 26, 2016 at 10:33 Initial Consult Date 03/23/16 Type of Consultation: Endocrinology Reason for Consultation Diabetes mellitus type 2 Referring Provider: BRISA PURVIS 24 HR Interval Summary Free Text/Dictation Patient is improved and is now being discharged. Exam/Review of Systems Vital Signs Vitals Vital Signs Date Time Temp Pulse Resp B/P Pulse Ox O2 Delivery O2 Flow Rate FiO2 03/27/16 12:07 73 03/27/16 11:55 98.0 18 134/60 98 03/27/16 08:00 Nasal Cannula 03/26/16 21:55 2.0 Intake and Output 03/26/16 03/26/16 03/27/16 15:00 23:00 07:00 Intake Total 720 ml 300 ml Output Total 1200 ml Balance 720 ml -900 ml Exam Constitutional: alert Respiratory: clear to auscultation, normal air movement Results Result Diagram: 03/27/16 0454 03/27/16 0454 Results 24 hrs Laboratory Tests Test 03/26/16 17:17 03/26/16 21:06 03/27/16 02:20 03/27/16 04:54 Bedside Glucose 153 203 121 Anion Gap 13 Basophils # 0.0 Basophils % 0.1 Blood Morphology Comment Blood Urea Nitrogen 49 H Calcium Level 9.0 Carbon Dioxide Level 34 H Chloride Level 100 Creatinine 1.17 H Eosinophils # 0.3 Eosinophils % 3.0 Glucose Level 103 Hematocrit 34.8 L Hemoglobin 11.0 L Lymphocytes # 1.5 Lymphocytes % 15.2 Mean Corpuscular Hemoglobin 23.3 L Mean Corpuscular Hemoglobin Concent 31.5 L Mean Corpuscular Volume 74.0 L Mean Platelet Volume 7.2 L Monocytes # 0.7 Monocytes % 6.8 Neutrophils # 7.6 H Neutrophils % 74.9 Nucleated Red Blood Cells # 0.0 Nucleated Red Blood Cells % 0.0 Platelet Count 365 Potassium Level 4.4 Red Blood Count 4.71 Red Cell Distribution Width 21.4 H Sodium Level 143 White Blood Count 10.2 Test 03/27/16 08:15 03/27/16 12:00 Bedside Glucose 106 58 L Medications Medications Current Medications Insulin Glargine (Lantus) 45 unit QAM SC Last administered on 03/27/16 09:14; Admin Dose 45 UNIT; Start 03/23/16 at 09:00 Linagliptin (Tradjenta) 5 mg DAILY PO Last administered on 03/27/16 08:59; Admin Dose 5 MG; Start 03/23/16 at 09:00 Miscellaneous Information 1 ea NOTE XX ; Start 03/22/16 at 19:00 Glucose (Glutose) 15 gm Q15M PRN PO DECREASED GLUCOSE; Start 03/22/16 at 19:00 Glucose (Glutose) 22.5 gm Q15M PRN PO DECREASED GLUCOSE; Start 03/22/16 at 19: 00 Dextrose (D50w Syringe) 25 ml Q15M PRN IV DECREASED GLUCOSE; Start 03/22/16 at 19:00 Dextrose (D50w Syringe) 50 ml Q15M PRN IV DECREASED GLUCOSE; Start 03/22/16 at 19:00 Glucagon (Glucagen) 1 mg Q15M PRN IM DECREASED GLUCOSE; Start 03/22/16 at 19: 00 Glucose (Glutose) 15 gm Q15M PRN BUCCAL DECREASED GLUCOSE; Start 03/22/16 at 19:00 Diagnostic Test (Pha) (Accucheck) 1 ea 02 XX Last administered on 03/25/16at 02 :00; Admin Dose 1 EA; Start 03/23/16 at 02:00 Ondansetron HCl (Zofran Inj) 4 mg Q6H PRN IV NAUSEA AND/OR VOMITING; Start at 20:30 Acetaminophen (Tylenol Tab) 650 mg Q6H PRN PO PAIN LEVEL 1-3 OR FEVER Last administered on 03/24/16at 11:47; Admin Dose 650 MG; Start 03/22/16 at 20:30 Morphine Sulfate (morphine) 2 mg Q4H PRN IV PAIN LEVEL 7-10; Start 03/22/16 at 20:30 Famotidine (Pepcid Iv) 20 mg DAILY IV Last administered on 03/27/16 08:58; Admin Dose 20 MG; Start 03/22/16 at 21:00 Enoxaparin Sodium (Lovenox) 30 mg DAILY SC Last administered on 03/27/16 09:10 ; Admin Dose 30 MG; Start 03/23/16 at 09:00 Albuterol/ Ipratropium (Duoneb) 3 ml ONCE PRN HHN WHEEZING AND SOB Last administered on 03/24/16at 14:16; Admin Dose 3 ML; Start 03/22/16 at 21:30 Clonidine (Catapres) 0.1 mg Q6H PRN PO ELEVATED SYSTOLIC BP; Start 03/23/16 at 04:03 Benazepril HCl (Lotensin) 20 mg DAILY PO Last administered on 03/27/16 09:00; Admin Dose 20 MG; Start 03/23/16 at 09:00 Isosorbide Mononitrate (Imdur) 60 mg DAILY PO Last administered on 03/27/16 08: 59; Admin Dose 60 MG; Start 03/23/16 at 09:00 Insulin Human NPH (Humulin N) 38 unit QHS SC Last administered on 03/26/16 21: 13; Admin Dose 38 UNIT; Start 03/24/16 at 21:00 Guaifenesin/ Dextromethorphan (Mucinex Dm) 1 tab BID PRN PO cough Last administered on 03/27/16 08:58; Admin Dose 1 TAB; Start 03/24/16 at 13:00 Furosemide (Lasix) 20 mg DAILY IV Last administered on 03/27/16 09:00; Admin Dose 20 MG; Start 03/25/16 at 09:00 Metoprolol Succinate (Toprol Xl) 50 mg BID PO Last administered on 03/27/16 09: 00; Admin Dose 50 MG; Start 03/25/16 at 09:00 Montelukast Sodium (Singulair) 10 mg HS PO Last administered on 03/26/16 21:07 ; Admin Dose 10 MG; Start 03/25/16 at 21:00 Copies To: CC: OLIVIA KAPLAN MD, JOSHUA A MD Mar 27, 2016 13:45
[2016-03-27] MEDS: MONTELUKAST 10 MG TAB PO SCH (20:50)
[2016-03-27] MEDS: NPH, HUMAN INSULIN ISOPHANE 3ML VIAL SC SCH (21:01)
[2016-03-27] MEDS: ALBUTEROL/IPRATROPIUM (NEB) 3 ML AMP HHN PRN (22:28)
[2016-03-28] VITALS (11 sets, daily range): BP systolic 122–177; BP diastolic 51–76; PULSE 63–78; RESP 20–22
[2016-03-28] MEDS: ACCUCHECK AT 2AM (Patients on SS coverage) XX SCH (02:00)
[2016-03-28] MEDS: INSULIN ASPART [NOVOLOG] 3 ML PEN SC SCH ×4 (07:52→11:53)
[2016-03-28] MEDS: FAMOTIDINE 20 MG INJ IV SCH (08:17)
[2016-03-28] MEDS: FUROSEMIDE 20 MG INJ IV SCH (08:17)
[2016-03-28] MEDS: LINAGLIPTIN 5 MG TABLET PO SCH (08:18)
[2016-03-28] MEDS: BENAZEPRIL 20 MG TAB PO SCH (08:18)
[2016-03-28] MEDS: ISOSORBIDE MONONITRATE(SR)60 MG TAB PO SCH (08:18)
[2016-03-28] MEDS: METOPROLOL (XL) 50 MG TAB PO SCH (08:18)
[2016-03-28] MEDS: INSULIN GLARGINE [LANtus] 3 ML PEN SC SCH (08:23)
[2016-03-28] MEDS: ENOXAPARIN 30 MG/0.3 ML SYG SC SCH (08:24)
[2016-03-28] MEDS: LEVALBUTEROL (NEB) 1.25 MG/0.5 ML AMP HHN PRN (09:35)
--- NOTE | 2016-03-28 10:22 | CONS ---
Date/Time of Note Date/Time of Note DATE: 03/28/16 TIME: 10:20 Assessment/Plan Assessment/Plan Additional Assessment/Plan 1. Congestive heart failure, diastolic, acute on chronic by echocardiogram 2015- con't gentler diuresis. 2. Hypertensive urgency/emergency, currently improved on most recent vital sign assessment - better, alanis adjust Rx as needed. 3. Shortness of breath secondary to #1- cobn't medical optimization. 4. Diabetes mellitus - on meds, will Rx to goal. 5. ARF-slowly improving 6. Anemia. 7. Leukocytosis. 8.DAVID- weight loss advised. Consultation Date/Type/Reason Admit Date/Time Mar 22, 2016 at 11:49 Initial Consult Date 03/23/16 Type of Consultation: Endocrinology Referring Provider: BRISA PURVIS 24 HR Interval Summary Free Text/Dictation No acute events. BP stable - con't to keep euvolemic. ROS: No fever, no chills, no nausea, no vomiting, no diarrhea/constipation No recent weight changes No chest pain, no PND, no orthopnea (better SOB) No dizziness, blurred vision No thirst, no heat or cold intolerance Exam/Review of Systems Vital Signs Vitals Vital Signs Date Time Temp Pulse Resp B/P Pulse Ox O2 Delivery O2 Flow Rate FiO2 03/28/16 09:38 77 20 100 Nasal Cannula 3.0 03/28/16 08:18 98.3 177/73 Intake and Output 03/27/16 03/27/16 03/28/16 15:00 23:00 07:00 Intake Total 900 ml 500 ml Output Total 1000 ml 2400 ml Balance -100 ml -1900 ml Exam General: WN/WD/NAD, AOx 3 HEENT: Unicetric/atraumatic/EOMI ( follows commands) NECK: JVD elevated, no thyromegaly Lymph: no lymphadenopathy HEART: regular with no S3, II/ systolic murmur at apex LUNGS: Coarse sounds ABD: soft, NT, ND, +BS : Intact Neuro: non focal SKIN: chronic changes EXT: trace edema Results Result Diagram: 03/27/16 0454 03/27/16 0454 Results 24 hrs Laboratory Tests Test 03/27/16 12:00 03/27/16 15:11 03/27/16 17:00 03/28/16 01:41 Bedside Glucose 58 L 110 120 146 Test 03/28/16 07:49 Bedside Glucose 160 Medications Medications Current Medications Insulin Glargine (Lantus) 45 unit QAM SC Last administered on 03/28/16 08:23; Admin Dose 45 UNIT; Start 03/23/16 at 09:00 Linagliptin (Tradjenta) 5 mg DAILY PO Last administered on 03/28/16 08:18; Admin Dose 5 MG; Start 03/23/16 at 09:00 Miscellaneous Information 1 ea NOTE XX ; Start 03/22/16 at 19:00 Glucose (Glutose) 15 gm Q15M PRN PO DECREASED GLUCOSE; Start 03/22/16 at 19:00 Glucose (Glutose) 22.5 gm Q15M PRN PO DECREASED GLUCOSE; Start 03/22/16 at 19: 00 Dextrose (D50w Syringe) 25 ml Q15M PRN IV DECREASED GLUCOSE; Start 03/22/16 at 19:00 Dextrose (D50w Syringe) 50 ml Q15M PRN IV DECREASED GLUCOSE; Start 03/22/16 at 19:00 Glucagon (Glucagen) 1 mg Q15M PRN IM DECREASED GLUCOSE; Start 03/22/16 at 19: 00 Glucose (Glutose) 15 gm Q15M PRN BUCCAL DECREASED GLUCOSE; Start 03/22/16 at 19:00 Diagnostic Test (Pha) (Accucheck) 1 ea 02 XX Last administered on 03/25/16at 02 :00; Admin Dose 1 EA; Start 03/23/16 at 02:00 Ondansetron HCl (Zofran Inj) 4 mg Q6H PRN IV NAUSEA AND/OR VOMITING; Start at 20:30 Acetaminophen (Tylenol Tab) 650 mg Q6H PRN PO PAIN LEVEL 1-3 OR FEVER Last administered on 03/24/16at 11:47; Admin Dose 650 MG; Start 03/22/16 at 20:30 Morphine Sulfate (morphine) 2 mg Q4H PRN IV PAIN LEVEL 7-10; Start 03/22/16 at 20:30 Famotidine (Pepcid Iv) 20 mg DAILY IV Last administered on 03/28/16 08:17; Admin Dose 20 MG; Start 03/22/16 at 21:00 Enoxaparin Sodium (Lovenox) 30 mg DAILY SC Last administered on 03/28/16 08:24 ; Admin Dose 30 MG; Start 03/23/16 at 09:00 Albuterol/ Ipratropium (Duoneb) 3 ml ONCE PRN HHN WHEEZING AND SOB Last administered on 03/27/16 22:28; Admin Dose 3 ML; Start 03/22/16 at 21:30 Clonidine (Catapres) 0.1 mg Q6H PRN PO ELEVATED SYSTOLIC BP; Start 03/23/16 at 04:03 Benazepril HCl (Lotensin) 20 mg DAILY PO Last administered on 03/28/16 08:18; Admin Dose 20 MG; Start 03/23/16 at 09:00 Isosorbide Mononitrate (Imdur) 60 mg DAILY PO Last administered on 03/28/16 08: 18; Admin Dose 60 MG; Start 03/23/16 at 09:00 Insulin Human NPH (Humulin N) 38 unit QHS SC Last administered on 03/27/16 21: 01; Admin Dose 38 UNIT; Start 03/24/16 at 21:00 Guaifenesin/ Dextromethorphan (Mucinex Dm) 1 tab BID PRN PO cough Last administered on 03/27/16 08:58; Admin Dose 1 TAB; Start 03/24/16 at 13:00 Furosemide (Lasix) 20 mg DAILY IV Last administered on 03/28/16 08:17; Admin Dose 20 MG; Start 03/25/16 at 09:00 Metoprolol Succinate (Toprol Xl) 50 mg BID PO Last administered on 03/28/16 08: 18; Admin Dose 50 MG; Start 03/25/16 at 09:00 Montelukast Sodium (Singulair) 10 mg HS PO Last administered on 03/27/16 20:50 ; Admin Dose 10 MG; Start 03/25/16 at 21:00 WERNER FALCON MD Mar 28, 2016 10:22
[2016-03-28] MEDS: GUAIFENESIN/DM (SR) TAB PO PRN (11:54)
--- NOTE | 2016-03-28 12:19 | DS ---
Date/Time of Note Date/Time of Note DATE: 03/28/16 TIME: 12:18 Discharge Summary Admission/Discharge Info Admit Date/Time Mar 22, 2016 at 11:49 Discharge Date/Time 03/28/16 Final Diagnosis 1) CHF 2) diabetes 3) renal insufficiency Patient Condition: Good Hx of Present Illness Patient with history of diabetes, hyperension, congestive heart failure comes in with shortness of breath which she has had in the past. Hospital Course Patient with diabetes, CHF comes in with shortness of breath related to congestive heart failure. Patient was treated with diuretics and close monitoring of her blood sugar. She slowly improved and was at baseline at the time of discharge. Patient will go home and follow up with her primary care physician. IMPRESSION: 1. Congestive heart failure, diastolic, acute on chronic by echocardiogram 2015. 2. Hypertensive urgency/emergency, currently improved on most recent vital sign assessment. 3. Shortness of breath secondary to #1. 4. Diabetes mellitus. 5. ARF-slowly improving 6. Anemia. 7. Leukocytosis. 8.DAVID Recc: -Tele -serial ecg's -Continue BB/ACEI/oral nitrates -Continue gentle daily lasix diuresis and follow abstract clerk closely and volume status with renal function improving -Check cxr today top assess for ongoing CHF Home Meds Active Scripts Potassium Chloride* (Potassium Chloride*) 20 Meq Tablet.er, 20 MEQ PO DAILY, # 30 TAB.SA Prov:ENRRIQUE AGUILAR 03/14/16 Furosemide* (Lasix*) 20 Mg Tablet, 40 MG PO BID, #60 TAB Prov:ENRRIQUE AGUILAR 03/14/16 Reported Medications Acetaminophen (PAIN & FEVER) 500 Mg Tablet, 1000 MG PO Q6, TAB 03/06/16 Insulin Glargine,Hum.rec.anlog (Jennie Mcintyre) 300 Unit/1 Ml Insuln.pen, 15 UNIT SQ QAM 03/06/16 Insulin Regular, Human (Humulin R U-500) 500 Unit/1 Ml Vial, 0 SQ TID, VIAL INJECT 33 UNITS-QAM & NOON, &13 UNITS IN DINNER 03/06/16 Pramlintide (Symlinpen 120) 2,700 Mcg/2.7 Ml Pen.injctr, 2700 MCG SC TID 03/06/16 Empagliflozin/Linagliptin (Glyxambi 25 mg-5 mg Tablet) 1 Each Tablet, 1 EACH PO QAM, TAB 03/06/16 Benazepril Hcl* (Benazepril Hcl*) 20 Mg Tablet, 20 MG PO DAILY, #30 TAB 03/06/16 Metoprolol Succinate* (Toprol XL*) 100 Mg Tab.sr.24h, 100 MG PO DAILY, #30 TAB 03/06/16 Isosorbide Mononitrate* (Isosorbide Mononitrate*) 60 Mg Tab.er.24h, 60 MG PO DAILY, TAB 03/06/16 Dorzolamide-Timolol* (Cosopt*) 2%-0.5% Soln, 1 DROP BOTH EYES BID, BOTTLE 12/18/15 Brimonidine Tartrate* (Brimonidine Tartrate*) 0.15%-10ML Drop Opht, 1 DROP BOTH EYES BID, #1 EA 12/18/15 Aripiprazole* (Abilify*) 10 Mg Tablet, 10 MG PO DAILY, #30 TAB 09/03/15 Clopidogrel Bisulfate* (Clopidogrel Bisulfate*) 75 Mg Tablet, 75 MG PO DAILY, TAB 11/28/14 Sertraline Hcl* (Zoloft*) 50 Mg Tablet, 50 MG PO DAILY, TAB 07/05/14 Atorvastatin* (Atorvastatin*) 40 Mg Tablet, 40 MG PO HS, TAB 05/07/14 Omeprazole* (Omeprazole*) 20 Mg Capsule.dr, 20 MG PO BID 09/28/12 Pending Labs Laboratory Tests Test 03/27/16 15:11 03/27/16 17:00 03/28/16 01:41 03/28/16 07:49 Bedside Glucose 110mg/dL (70-220) 120mg/dL (70-220) 146mg/dL (70-220) 160mg/dL (70-220) Test 03/28/16 11:47 Bedside Glucose 162mg/dL (70-220) BRISA PURVIS Mar 28, 2016 12:19
== END 2016-03-28 17:24 | disposition home or self-care (01) | DRG 292 ==
LOC: E/R 10:06 → TEL 11:48 → OBSVTOIN 11:49 → INTOOBSV 03-26 10:33
PROVIDERS: ADMIT Internal Medicine; ATTEND Internal Medicine
DX: I50.33 Acute on chronic diastolic (congestive) heart failure (principal); Z68.42 Body mass index [BMI] 45.0-49.9, adult; D64.9 Anemia, unspecified; E11.9 Type 2 diabetes mellitus without complications; I16.0 Hypertensive urgency; D72.829 Elevated white blood cell count, unspecified; E66.01 Morbid (severe) obesity due to excess calories; Z79.4 Long term (current) use of insulin; G47.33 Obstructive sleep apnea (adult) (pediatric)
CPT/HCPCS: 36415; 71010; 74176; 80048; 80053; 82550; 82553; 82962; 83880; 84484; 85025; 85610; 85730; 87400; 93005; 93306; 94640; 94664; 96372; 96374; 96375; 96376; 97162; 99217; G0378; J1940; J1650; J1815; J2270

== ENCOUNTER 2016-08-06 15:43 | Inpatient (IN) | payer MEDICARE, OTHER ==
[~2016-08-06] VITALS: Ht 160 cm; Wt 130.0 kg
[~2016-08-06 15:43] MED LIST changes: +ALBU8.5H3 INH; +FURO-110 PO; -FURO20TA PO
[2016-08-06 16:22] LABS: ADD SCAN DIFF NO
[2016-08-06 16:24] LABS: BASOPHIL # 0.1 10^3/ul (0.0-0.1); BASOPHILS % 0.4 % (0.0-2.0); EOSINOPHILS # 0.3 10^3/ul (0.0-0.5); EOSINOPHILS % 2.3 % (0.0-7.0); HEMATOCRIT 38.8 % (37.0-47.0); HEMOGLOBIN 11.5 g/dl (12.0-16.0); LYMPHOCYTES # 1.4 10^3/ul (0.8-2.9); LYMPHOCYTES % 11.8 % (15.0-51.0); MEAN CORPUSCULAR HEMOGLOBIN 23.9 pg (29.0-33.0); MEAN CORPUSCULAR HGB CONC 29.6 g/dl (32.0-37.0); MEAN CORPUSCULAR VOLUME 80.7 fl (82.0-101.0); MEAN PLATELET VOLUME 8.6 fl (7.4-10.4); MONOCYTE # 0.7 10^3/ul (0.3-0.9); NEUTROPHIL # 9.1 10^3/ul (1.6-7.5); NEUTROPHILS % 78.2 % (39.0-77.0); PLATELET COUNT 400 10^3/UL (140-415); RED BLOOD COUNT 4.81 10^6/ul (4.20-5.40); RED CELL DISTRIBUTION WIDTH 20.9 % (11.5-14.5); WHITE BLOOD COUNT 11.6 10^3/ul (4.8-10.8)
[2016-08-06] MEDS ORDERED: ASPIRIN 81 MG TAB PO ONE (16:30)
[2016-08-06] MEDS ORDERED: NITROGLYCERIN (SL) 0.4 MG TAB SL ONE (16:30)
[2016-08-06] MEDS ORDERED: FUROSEMIDE 40 MG INJ IV ONE (16:30)
[2016-08-06 16:40] LABS: ALBUMIN 3.9 g/dl (3.3-4.9); CHLORIDE 101 mmol/L (97-110)
[2016-08-06 16:41] LABS: SODIUM 138 mmol/L (135-144)
[2016-08-06 16:43] LABS: ALKALINE PHOSPHATASE 88 IU/L (42-121); ASPARTATE AMINO TRANSFERASE 29 IU/L (15-46); BILIRUBIN,INDIRECT 0.1 mg/dl (0-1.1); BILIRUBIN,TOTAL 0.1 mg/dl (0.2-1.3); BLOOD UREA NITROGEN 32 mg/dl (7-20); CARBON DIOXIDE 26 mmol/L (21-31); CREATININE 1.17 mg/dl (0.44-1.00); TOTAL PROTEIN 7.7 g/dl (6.1-8.1)
[2016-08-06 16:44] LABS: ALANINE AMINOTRANSFERASE 32 IU/L (13-69); ALBUMIN/GLOBULIN RATIO 1.02; ANION GAP 16 (8-16); CALCIUM 9.1 mg/dl (8.4-10.2); GLUCOSE 295 mg/dl (70-220); POTASSIUM 5.2 mmol/L (3.5-5.1)
[2016-08-06 16:52] LABS: B-TYPE NATRIURETIC PEPTIDE 665 PG/ML (0-125)
[2016-08-06 16:56] LABS: TROPONIN-I < 0.012 ng/ml (0.00-0.12)
--- NOTE | 2016-08-06 17:08 | RADRPT ---
PROCEDURE: XR Chest. CLINICAL INDICATION: Chest pain. Abdominal pain TECHNIQUE: Portable AP semi erect view of the chest was obtained. COMPARISON: 03/27/2016 FINDINGS: The cardiomediastinal silhouette is magnified. The lungs are clear of acute infiltrates, improved a eration of the left lower lobe compared to the prior study. There is no evidence for pleural effusi on, pneumothorax or pulmonary vascular congestion. The osseous structures are intact with no eviden ce for acute abnormality. Calcification is again visible within the aortic arch. No free air seen be low the diaphragm. RPTAT:HJJR IMPRESSION: 1. Cardiac silhouette is prominent probably magnified, without evidence for acute intrathoracic path ology. 2. Aortic atherosclerosis is present. Physician Melanie Date Time Electronically viewed and signed by Physician Melanie on 08/06/2016 17:07 JR/
[2016-08-06] MEDS ORDERED: ALBU18HF INHALATION (17:10)
[2016-08-06] MEDS ORDERED: FLUT16SP17 NASAL (17:10)
[2016-08-06] MEDS ORDERED: ALBUTEROL 0.5% (NEB) 2.5 MG/0.5 ML AMP INH STA (17:14)
[2016-08-06] MEDS ORDERED: NOVO3I SC (17:25)
--- NOTE | 2016-08-06 17:25 | ERD ---
ER Documentation Chief Complaint Date/Time DATE: 08/06/16 TIME: 17:14 Chief Complaint SOB SINCE EARLIER TODAY - CP HPI 75-year-old woman brought in by family members for shortness of breath difficulty breathing, orthopnea, recent bilateral lower extremity peripheral edema. Patient also complains of pressure-like nonexertional nonradiating chest pain. She has had similar episodes in the past. Patient denies previous OR or stroke, no fevers or chills, no cough, no abdominal pain, no vomiting or diarrhea. Patient is a difficult historian and family member who is at the bedside is not much help with HPI or PMH ROS All systems reviewed and are negative except as per history of present illness. Medications Home Meds Active Scripts Potassium Chloride* (Potassium Chloride*) 20 Meq Tablet.er, 20 MEQ PO DAILY, # 30 TAB.SA Prov:AUSTENDANIELLEENRRIQUE 03/14/16 Reported Medications Furosemide* (Furosemide*) 40 Mg Tablet, 40 MG PO BID, TAB 08/06/16 Insulin Glargine* (Lantus*) 100 Unit/Ml Soln, 10 UNIT SC BID, #1 VIAL 08/06/16 Insulin Aspart* (Novolog Insulin Pen*) 100 Unit/Ml Soln, 0 SC WITH MEALS, EA 32 UNITS-QAM, 12 UNITS-NOON, 32 UNITS-QPM 08/06/16 Fluticasone Propionate* (Fluticasone Propionate* Nasal) 50 Mcg/[place] - 16 Gm [place].susp, 1 SPRAY NASAL DAILY, #1 BOTTLE TO EACH NOSTRIL 08/06/16 Albuterol Sulfate* (Ventolin HFA*) 18 Gm Hfa.aer.ad, 2 PUFF INHALATION Q4H, #1 INHALER 08/06/16 Acetaminophen (PAIN & FEVER) 500 Mg Tablet, 1000 MG PO BID, TAB 03/06/16 Pramlintide (Symlinpen 120) 2,700 Mcg/2.7 Ml Pen.injctr, 2700 MCG SC TID BEFORE MEALS 03/06/16 Empagliflozin/Linagliptin (Glyxambi 25 mg-5 mg Tablet) 1 Each Tablet, 1 EACH PO QAM, TAB 03/06/16 Metoprolol Succinate* (Toprol XL*) 100 Mg Tab.sr.24h, 100 MG PO DAILY, #30 TAB 03/06/16 Isosorbide Mononitrate* (Isosorbide Mononitrate*) 60 Mg Tab.er.24h, 60 MG PO DAILY, TAB 03/06/16 Dorzolamide-Timolol* (Cosopt*) 2%-0.5% Soln, 1 DROP BOTH EYES BID, BOTTLE 12/18/15 Brimonidine Tartrate* (Brimonidine Tartrate*) 0.15%-10ML Drop Opht, 1 DROP BOTH EYES BID, #1 EA 12/18/15 Aripiprazole* (Abilify*) 10 Mg Tablet, 10 MG PO DAILY, #30 TAB 09/03/15 Clopidogrel Bisulfate* (Clopidogrel Bisulfate*) 75 Mg Tablet, 75 MG PO DAILY, TAB 11/28/14 Sertraline Hcl* (Zoloft*) 50 Mg Tablet, 50 MG PO DAILY, TAB 07/05/14 Atorvastatin* (Atorvastatin*) 40 Mg Tablet, 40 MG PO HS, TAB 05/07/14 Omeprazole* (Omeprazole*) 20 Mg Capsule.dr, 20 MG PO BID 09/28/12 Discontinued Reported Medications Insulin Glargine,Hum.rec.anlog (Jennie Mcintyre) 300 Unit/1 Ml Insuln.pen, 15 UNIT SQ QAM 03/06/16 Insulin Regular, Human (Humulin R U-500) 500 Unit/1 Ml Vial, 0 SQ TID, VIAL INJECT 33 UNITS-QAM & NOON, &13 UNITS IN DINNER 03/06/16 Benazepril Hcl* (Benazepril Hcl*) 20 Mg Tablet, 20 MG PO DAILY, #30 TAB 03/06/16 Discontinued Scripts Albuterol Sulfate* (Proair HFA*) 8.5 Gm Hfa.aer.ad, 2 PUFF INH Q4 Y for shortness of breath, #1 INHALER Prov:BRISA PURVIS 03/27/16 Furosemide* (Lasix*) 20 Mg Tablet, 40 MG PO BID, #60 TAB Prov:ENRRIQUE AGUILAR 03/14/16 Allergies Allergies: Coded Allergies: No Known Drug Allergy (Verified Allergy, Unknown, 08/06/16) PMhx/Soc Morbid obesity, diabetes mellitus, hypertension, renal insufficiency, congestive heart failure (preserved EF) History of Surgery: Yes (hysterectomy, stent) Anesthesia Reaction: No Hx Neurological Disorder: Yes (neuropathy) Hx Respiratory Disorders: Yes Hx Cardiac Disorders: Yes Hx Psychiatric Problems: No Hx Miscellaneous Medical Probl: Yes (refer to EMR) Hx Alcohol Use: No Hx Substance Use: No Hx Tobacco Use: No Smoking Status: Unknown if ever smoked FmHx Family History: diabetes Physical Exam Vitals Vital Signs Date Time Temp Pulse Resp B/P Pulse Ox O2 Delivery O2 Flow Rate FiO2 08/06/16 17:40 3.0 08/06/16 17:40 83 22 96 Nasal Cannula 3.0 08/06/16 16:15 Nasal Cannula 2 08/06/16 15:50 98.3 69 24 196/76 94 Physical Exam GENERAL: Well-developed, well-nourished, appears dyspneic, afebrile HEENT: Moist mucous membranes, pink conjunctiva, no cervical spine tenderness or step-off deformities, no goiter, no jaundice or icterus, extraocular movements intact without pain. No submandibular induration, and no pharyngeal erythema NEURO: Alert and oriented 3, cranial nerves II through XII intact bilaterally, pupils equal round reactive to light, no focal deficits or facial asymmetry, sensation intact distally Strength 5/5 in upper and lower extremities bilaterally CARDIAC: Regular rate and rhythm, no murmurs rubs or gallops LUNGS: Poor breath sounds bilaterally, bibasilar crackles, no wheezing or stridor ABDOMEN: Soft nontender, no guarding, no rigidity, no rebound, no psoas sign no obturator sign. Normoactive bowel sounds SKIN: Warm and dry to touch, no abrasions, contusions, or hematomas, no lacerations, no ecchymosis, no target lesions, and without ulcers EXTREMITIES: No clubbing cyanosis, 3+ pitting edema in the lower extremities bilaterally, calves are bilaterally symmetrical, no Homans sign, no popliteal cord sign. Distal pulses equal and bilateral PSYCH: Normal affect without agitation or irritability Result Diagram: 08/06/16 1614 08/06/16 1614 Results 24 hrs Laboratory Tests Test 08/06/16 16:14 White Blood Count 11.610^3/ul Red Blood Count 4.8110^6/ul Hemoglobin 11.5g/dl Hematocrit 38.8% Mean Corpuscular Volume 80.7fl Mean Corpuscular Hemoglobin 23.9pg Mean Corpuscular Hemoglobin Concent 29.6g/dl Red Cell Distribution Width 20.9% Platelet Count 10250^3/UL Mean Platelet Volume 8.6fl Neutrophils % 78.2% Lymphocytes % 11.8% Monocytes % 6.0% Eosinophils % 2.3% Basophils % 0.4% Nucleated Red Blood Cells % 0.0/100WBC Neutrophils # 9.110^3/ul Lymphocytes # 1.410^3/ul Monocytes # 0.710^3/ul Eosinophils # 0.310^3/ul Basophils # 0.110^3/ul Nucleated Red Blood Cells # 0.010^3/ul Sodium Level 138mmol/L Potassium Level 5.2mmol/L Chloride Level 101mmol/L Carbon Dioxide Level 26mmol/L Anion Gap 16 Blood Urea Nitrogen 32mg/dl Creatinine 1.17mg/dl Glucose Level 295mg/dl Calcium Level 9.1mg/dl Total Bilirubin 0.1mg/dl Direct Bilirubin 0.00mg/dl Indirect Bilirubin 0.1mg/dl Aspartate Amino Transf (AST/SGOT) 29IU/L Alanine Aminotransferase (ALT/SGPT) 32IU/L Alkaline Phosphatase 88IU/L Troponin I < 0.012ng/ml B-Type Natriuretic Peptide 665PG/ML Total Protein 7.7g/dl Albumin 3.9g/dl Globulin 3.80g/dl Albumin/Globulin Ratio 1.02 Lipase 47U/L Current Medications Medications (Trade) Dose Ordered Sig/Errol Route PRN Reason Start Time Stop Time Status Last Admin Dose Admin Nitroglycerin (Nitroglycerin (Sl Tab) 0.4 Mg) 1 tab ONCE ONCE SL 08/06/16 16:30 08/06/16 16:31 DC 08/06/16 16:16 Aspirin (Aspirin) 324 mg ONCE ONCE PO 08/06/16 16:30 08/06/16 16:31 DC 08/06/16 16:15 Furosemide (Lasix) 60 mg ONCE ONCE IV 08/06/16 16:30 08/06/16 16:31 DC 08/06/16 16:15 Albuterol (Proventil 0.5% (Neb)) 10 mg ONCE STAT INH 08/06/16 17:14 08/06/16 17:15 DC 08/06/16 17:40 Procedures/MDM IV line was established patient was placed on monitor and storage bin tender rhythm strip revealed a sinus rhythm at about 70 bpm with upright P and T waves. Patient was afebrile and dyspneic. EKG performed, read by me revealed a normal sinus rhythm at 69 bpm, normal axis , narrow QRS complex, no concerning ST elevations or depressions noted. One view chest x-ray performed, read by me there is cardiomegaly and bilateral pulmonary edema, no acute infiltrates, no pneumothorax, overall concerning for decompensated heart failure. I administered aspirin 325 mg p.o. for cardioprotective measures, nitroglycerin 0.4 mg sublingual, and furosemide 60 mg IV. I later did treat her with albuterol 10 mg via nebulizer this was for continued dyspnea as well as hyperkalemia. CBC revealed a white count of 12 otherwise unremarkable, electrolytes revealed dehydration and kidney injury with a BUN/creatinine of 32/1.2, potassium elevated at 5.2, liver function tests are normal, troponin negative, BNP elevated at about 700. Patient presented with shortness of breath and initial hypertension I suspect decompensated heart failure in the setting of chest pain will be admitted to telemetry for continued medical management repeat troponin and cardiology evaluation. Cardiac Critical Care: Time: 37 minutes, this was time separate from other procedures Treatments/Evaluations: Close monitoring for dangerous arrhythmia and cardiovascular collapse, while treating with advance cardiac medications and techniques. Departure Diagnosis: Primary Impression: Morbid obesity with BMI of 45.0-49.9, adult Additional Impressions: Chest pain Chest pain type: unspecified Qualified Code: R07.9 - Chest pain, unspecified type CHF (congestive heart failure) Congestive heart failure type: systolic Congestive heart failure chronicity: acute Qualified Code: I50.21 - Acute systolic congestive heart failure Peripheral edema Hyperkalemia Condition: MUMTAZ Miller MD August 06, 2016 17:25
[2016-08-06] MEDS ORDERED: LANT3I SC (17:28)
[2016-08-06] MEDS ORDERED: FURO40TA4 PO (17:29)
[2016-08-06 18:40] VITALS: TEMP 97.4
[2016-08-06 20:00] VITALS: BP 150/84; RESP 20
[2016-08-06 20:10] VITALS: PULSE 68
[2016-08-06] MEDS ORDERED: DC GLYBURIDE, GLIPIZIDE,GLIMEPIRIDE AND PREVIOUS INSULIN ORDERS XX SCH (20:30)
[2016-08-06] MEDS ORDERED: DEXTROSE 50% 50 ML SYRINGE IV PRN ×2 (20:30)
[2016-08-06] MEDS ORDERED: GLUCAGON 1 MG INJ IM PRN (20:30)
[2016-08-06] MEDS ORDERED: GLUCOSE GEL 15 GRAM TUBE PO PRN ×2 (20:30)
[2016-08-06] MEDS ORDERED: NACL 0.9% 3 ML SYG IV SCH (20:30)
[2016-08-06] MEDS ORDERED: ONDANSETRON 4 MG INJ IV PRN (20:30)
[2016-08-06] MEDS ORDERED: GLUCOSE GEL 15 GRAM TUBE BUCCAL PRN (20:30)
[2016-08-06] MEDS: FAMOTIDINE 20 MG INJ IV SCH (20:44)
[2016-08-06 20:59] LABS: CREATINE KINASE 92 IU/L (23-200)
[2016-08-06] MEDS ORDERED: FUROSEMIDE 40 MG INJ IV SCH (21:00)
[2016-08-06] MEDS: INSULIN ASPART [NOVOLOG] 3 ML PEN SC SCH (21:00)
[2016-08-06 21:09] LABS: CK-MB 2.63 ng/ml (0.0-2.4)
[2016-08-06 21:16] LABS: TROPONIN-I < 0.012 ng/ml (0.00-0.12)
[2016-08-06 21:43] VITALS: Ht 160 cm; Wt 130.0 kg
[2016-08-06 23:57] VITALS: BP 136/78; RESP 22
[2016-08-07] VITALS (12 sets, daily range): BP systolic 125–166; BP diastolic 56–73; PULSE 63–75; RESP 17–20
[2016-08-07] MEDS: ACCUCHECK AT 2AM (Patients on SS coverage) XX SCH (01:59)
[2016-08-07 03:49] LABS: ADD SCAN DIFF NO
[2016-08-07 04:08] LABS: BASOPHIL # 0.1 10^3/ul (0.0-0.1); BASOPHILS % 0.4 % (0.0-2.0); EOSINOPHILS # 0.3 10^3/ul (0.0-0.5); EOSINOPHILS % 2.4 % (0.0-7.0); HEMATOCRIT 39.6 % (37.0-47.0); HEMOGLOBIN 11.6 g/dl (12.0-16.0); LYMPHOCYTES # 1.2 10^3/ul (0.8-2.9); LYMPHOCYTES % 10.3 % (15.0-51.0); MEAN CORPUSCULAR HEMOGLOBIN 23.7 pg (29.0-33.0); MEAN CORPUSCULAR HGB CONC 29.3 g/dl (32.0-37.0); MEAN PLATELET VOLUME 8.6 fl (7.4-10.4); MONOCYTE # 0.8 10^3/ul (0.3-0.9); MONOCYTES % 6.4 % (0.0-11.0); NEUTROPHIL # 9.6 10^3/ul (1.6-7.5); NEUTROPHILS % 79.7 % (39.0-77.0); PLATELET COUNT 377 10^3/UL (140-415); RED BLOOD COUNT 4.89 10^6/ul (4.20-5.40); RED CELL DISTRIBUTION WIDTH 21.3 % (11.5-14.5)
[2016-08-07 04:34] LABS: CREATINE KINASE 83 IU/L (23-200)
[2016-08-07 04:38] LABS: ALBUMIN/GLOBULIN RATIO 1.18
[2016-08-07 04:39] LABS: CHOL/HDL RATIO 4.8 RATIO
[2016-08-07 04:44] LABS: CK-MB 2.23 ng/ml (0.0-2.4)
[2016-08-07 04:45] LABS: ALBUMIN 3.9 g/dl (3.3-4.9); BILIRUBIN,INDIRECT 0.2 mg/dl (0-1.1); BILIRUBIN,TOTAL 0.2 mg/dl (0.2-1.3); CALCIUM 9.4 mg/dl (8.4-10.2); CREATININE 1.28 mg/dl (0.44-1.00); POTASSIUM 4.6 mmol/L (3.5-5.1); TOTAL PROTEIN 7.2 g/dl (6.1-8.1)
[2016-08-07 05:13] LABS: TROPONIN-I < 0.012 ng/ml (0.00-0.12)
[2016-08-07] MEDS: FUROSEMIDE 20 MG INJ IV SCH ×2 (05:46→17:34)
[2016-08-07] MEDS: INSULIN ASPART [NOVOLOG] 3 ML PEN SC SCH ×4 (08:35→20:35)
[2016-08-07] MEDS: ENOXAPARIN 30 MG/0.3 ML SYG SC SCH (08:36)
[2016-08-07] MEDS: FAMOTIDINE 20 MG INJ IV SCH (08:36)
[2016-08-07] MEDS ORDERED: SYMLIN SC (16:18)
[2016-08-07] MEDS ORDERED: INSU300I SQ (16:18)
[2016-08-07] MEDS ORDERED: NOVO7030 SC (16:18)
[2016-08-07] MEDS ORDERED: [UNRECOGNIZED DRUG - REMARK] XX SCH (16:30)
[2016-08-07] MEDS: PANTOPRAZOLE SODIUM 20 MG TABEC PO SCH (17:34)
--- NOTE | 2016-08-07 19:56 | HP ---
DATE OF ADMISSION: 08/06/2016 CHIEF COMPLAINT: Shortness of breath and chest pain. HISTORY OF PRESENT ILLNESS: The patient is a 75-year-old female known to me from previous admission. The patient with extensive past medical history including congestive heart failure, diab etes mellitus, morbid obesity, hypertension, coronary artery disease, hyperlipidemia and anxiety, re nal insufficiency and diabetic neuropathy. Patient brought to the emergency room by family members for complaints of shortness of breath and orthopnea and bilateral lower extremity edema. Patient al so complains with pressure-like, nonexertional, nonradiating chest pain. Patient underwent a chest x-ray which revealed cardiac silhouette is prominent probably magnified without evidence of acute in trathoracic pathology. Aortic atherosclerosis is present. The patient's troponin was negative on a dmission. However, BNP was elevated to 665. The patient also had elevated potassium of 5.2 on admi ssion and patient also had leukocytosis with white blood cells being elevated to 11,600. Patient de nies any fever, denies nausea, vomiting. The patient's blood pressure was 196/76 on admission to th e emergency room, patient was given aspirin, nitroglycerin and Lasix and breathing treatment and pat ient underwent 12-lead EKG, which revealed normal sinus rhythm without any ST elevation or depressio n. The patient was admitted for further evaluation and management. PAST MEDICAL HISTORY: Per HPI. PAST SURGICAL HISTORY: Status post cardiac stent placement, details unavailable, status post hyster ectomy, status post left eye surgery. FAMILY HISTORY: Positive for history of diabetes and hypertension. SOCIAL HISTORY: Patient lives at home. Patient denies any tobacco use, denies any alcohol use, den ies any illicit drug use. ALLERGIES: NO KNOWN ALLERGIES. HOME MEDICATIONS: Include: 1. Potassium chloride. 2. Lasix. 3. Lantus. 4. NovoLog. 5. Fluticasone. 6. Ventolin. 7. Tylenol. 8. Simply Pen. 9. ____. 10. ____. 11. Metoprolol. 12. Imdur. 13. Cosopt. 14. Abilify. 15. Plavix. 16. Zoloft. 17. Atorvastatin. 18. Omeprazole. REVIEW OF SYSTEMS: A 12-point review of systems negative unless what mentioned in the HPI. PHYSICAL ASSESSMENT: GENERAL: This is a well-developed, obese female currently is awake, alert. VITAL SIGNS: Temperature is 98.0, pulse 70, blood pressure 137/58, respiratory rate 20, oxygen satu ration 94% on 2 liters nasal cannula. HEENT: Head is atraumatic, normocephalic. Pupils equal, round, reactive to light and accommodation . Oral mucosa is pink and moist. NECK: Supple. JVD present. No cervical lymphadenopathy noted. No thyromegaly. LUNGS: Slightly diminished at the bases. Clear in the upper lobes. CARDIOVASCULAR: Normal S1, S2. No murmurs, gallops, clicks, rubs noted. ABDOMEN: Protuberant, soft, nondistended, nontender. Bowel sounds present. There is no guarding, no rebound tenderness. EXTREMITIES: Bilateral lower extremities edema at 2+. Pulses equal bilaterally 2+. SKIN: There is no rash, petechiae noted. NEUROLOGIC: The patient is awake, alert and oriented x3, no focal deficits noted. Motor strength 5 /5 in all extremities. LABORATORY DATA: On admission, CBC: White blood cells 11.6, hemoglobin 11.5, hematocrit 38.8, plat elets 400. Chemistry: sodium is 138, potassium 5.0, chloride 101, carbon dioxide 26, anion gap 16, BUN is 32, creatinine 1.17, glucose 295, AST is 29, ALT 32, alkaline phosphatase 88, troponin less than 0.012. BNP 665, lipase is 47. ASSESSMENT AND PLAN: 1. Diastolic acute on chronic congestive heart failure exacerbation. Continue Lasix IV. Dr. Harry wisdom will be following patient. Cardiology consultation. Continue to monitor electrolytes. 2. Hypertension. 3. Hyperkalemia. 4. Bilateral lower extremity edema secondary to change in CHF. Will obtain venous ultrasound to ru le out any possibility of deep venous thrombosis. 5. Diabetes mellitus type 2. Continue patient's home regimen. 6. Acute on chronic kidney disease. Continue to monitor BUN and creatinine. 7. We will obtain cardiac enzymes x3 q.8 hours to rule out acute coronary syndrome. 8. Hyperlipidemia. Continue statin. 9. Morbid obesity. 10. Will continue Lovenox for deep venous thrombosis prophylaxis and Pepcid for peptic ulcer diseas e prophylaxis. Further recommendations based on clinical course. Plan of care discussed with Dr. Garza. Dictated By: MADHU CAZARES EDUCATION RESEARCH ANALYST for OLIVIA GARZA MD SR/NTS Conf#: [id number] DID#: [id number]
[2016-08-07] MEDS ORDERED: NITROGLYCERIN (SL) 0.4 MG TAB SL PRN (20:00)
[2016-08-07] MEDS ORDERED: INSULIN ASPART [NOVOLOG] 3 ML PEN SC ONE (20:30)
[2016-08-07] MEDS: ATORVASTATIN 40 MG TAB PO SCH (20:31)
[2016-08-07] MEDS: BRIMONIDINE 0.15% 5 ML OPH BOTH EYES SCH (20:31)
[2016-08-07] MEDS: INSULIN GLARGINE [LANtus] 3 ML PEN SC SCH (20:35)
[2016-08-07] MEDS ORDERED: [UNRECOGNIZED DRUG - OTHER] SC SCH (21:00)
[2016-08-08] VITALS (11 sets, daily range): BP systolic 120–180; BP diastolic 52–76; PULSE 62–86; RESP 18–20
[2016-08-08] MEDS: ACCUCHECK AT 2AM (Patients on SS coverage) XX SCH (02:15)
--- NOTE | 2016-08-08 02:59 | CONS ---
DATE OF ADMISSION: 08/06/2016 DATE OF CONSULTATION: 08/07/2016 REASON FOR CONSULTATION: Shortness of breath, congestive heart failure exacerbation and possible ch est pain. REQUESTING PHYSICIAN: Dr. Olivia Kaplan. HISTORY OF PRESENT ILLNESS: Ms. Lee is a 75-year-old female with a history of congestive heart f ailure with preserved left ventricular ejection fraction of 55% by echo in February 2016, hypertensi on, diabetes mellitus, anemia who presented with complaints of shortness of breath and per chart bio psy from the emergency room, chest pain, although patient denies chest pain to me. Upon arrival, te mperature 98.3, blood pressure markedly elevated at 196/76, pulse 69, respiratory rate 24, saturatin g 94%. The patient's labs revealed a white blood count 11.6, hemoglobin 11.5, platelet count 400. Sodium 141, potassium 4.6, creatinine 1.28, BUN of 38. LDL 96, HDL 39. Glucose of 354. The patien t underwent a chest x-ray revealing cardiac silhouette, prominent without evidence for acute i ntrathoracic pathology, aortic atherosclerosis is present. The patient's electrocardiogram revealed normal sinus rhythm, rate of 69, normal axis, normal intervals with isolated T-wave flattening in t he inferolateral leads. The patient was subsequently admitted to the floor and since admitted to e floor, she has been initiated on baseline beta fernando, Imdur, with improvement in systolic blood pressure control and started on Lasix diuresis. PAST MEDICAL HISTORY: As above in HPI. MEDICATIONS CURRENTLY IN HOSPITAL: 1. Abilify 10 mg daily. 2. Plavix 75 mg daily. 3. Imdur 60 mg daily. 4. Toprol-XL 100 mg daily. 5. Zoloft 50 mg daily. 6. Jardiance. 7. Tradjenta. 8. Symlin. 9. Lipitor 40 mg at bedtime. 10. Alphagan eyedrops. 11. Lantus 10 units subQ b.i.d. 12. Protonix 40 mg b.i.d. 13. Lovenox 20 mg daily. 14. Lasix 20 mg IV b.i.d. 15. Insulin sliding scale. 16. Zofran p.r.n. 17. Morphine p.r.n. ALLERGIES: NO KNOWN DRUG ALLERGIES. SOCIAL HISTORY: No tobacco, ETOH or illicit drug use. FAMILY HISTORY: No history of sudden cardiac or early CAD. REVIEW OF SYSTEMS: As above in HPI. CONSTITUTIONAL: No fevers, chills. PULMONARY: Shortness of breath. CARDIOVASCULAR: Per report, intermittent chest pain. GASTROINTESTINAL: No vomiting. GENITOURINARY: No hematuria. MUSCULOSKELETAL: Degenerative joint disease. PSYCHIATRIC: Positive psych history on medications. NEUROLOGIC: No documented history of CVA. ENDOCRINE: Diabetes mellitus. PHYSICAL EXAMINATION: VITAL SIGNS: Temperature 98.6, blood pressure most recently 125/56, pulse 74, respirations 20, sat 94%. GENERAL: The patient is alert, awake, complaining of shortness of breath. NECK: JVP approximately 9 cm water. CHEST: Fair movement throughout with mildly decreased breath sounds at bases bilaterally. HEART: Regular rate and rhythm. Normal S1, S2, I/ systolic murmur, nondisplaced PMI. ABDOMEN: Positive bowel sounds, soft. EXTREMITIES: Trace edema, 1+ pulses bilaterally posterior tibial. LABORATORY DATA: As above in HPI, with most recent from today, white blood cell count 12, hemoglobi n 11.6, platelet count 377. Sodium 141, potassium 4.6, creatinine 1.28, BUN 38. IMAGING STUDIES: As above in HPI. No further imaging studies for my review at this time. ECG: As above in HPI. No further electrocardiograms for my review at this time. IMPRESSION: 1. Shortness of breath, assess for congestive heart failure. 2. Elevated BNP, assess for congestive heart failure. 3. Chest pain, assess for acute coronary syndrome. 4. Abnormal electrocardiogram. Assess for acute coronary syndrome. 5. Hypertensive urgency, emergency. Currently improving on oral antihypertensives. 6. Diabetes mellitus, uncontrolled blood sugars. 7. Anemia. 8. Leukocytosis. 9. Psych disorder. RECOMMENDATIONS: 1. At this time, would maintain the patient on telemetry monitoring to follow rhythm and rate contr ol closely. 2. Continue the patient's current Toprol and Imdur for control of blood pressures and for antiangin al effects. 3. Continue the patient's current Plavix for prevention of cardiovascular . 4. Continue the patient's current statin and adjust it according to fasting. Lipid panels should b e checked. Continue the patient's Lasix diuresis at this time but may decrease dose and follow juan m lewis closely. 5. Patient ruled out for myocardial infarction. Then, at that time, will place the patient in for stress test as possible given weight. Thank you for allowing me to take part in the care of this patient. I will continue to follow her c losely with you. Further recommendations to be made as patient progresses through her inpatient hos pital clinical course. Dictated By: TERRIE GAINES/CLAUDIA Conf#: [id number] DID#: [id number] CC: OLIVIA KAPLAN MD;*EndCC*
[2016-08-08] MEDS: PANTOPRAZOLE SODIUM 20 MG TABEC PO SCH ×2 (06:30→17:27)
[2016-08-08] MEDS: FUROSEMIDE 20 MG INJ IV SCH ×2 (06:31→17:27)
[2016-08-08 07:25] LABS: ADD SCAN DIFF NO
[2016-08-08 07:27] LABS: BASOPHILS % 0.4 % (0.0-2.0); EOSINOPHILS # 0.3 10^3/ul (0.0-0.5); EOSINOPHILS % 2.4 % (0.0-7.0); HEMATOCRIT 43.1 % (37.0-47.0); HEMOGLOBIN 12.6 g/dl (12.0-16.0); LYMPHOCYTES # 1.6 10^3/ul (0.8-2.9); LYMPHOCYTES % 14.5 % (15.0-51.0); MEAN CORPUSCULAR HEMOGLOBIN 23.7 pg (29.0-33.0); MEAN CORPUSCULAR HGB CONC 29.2 g/dl (32.0-37.0); MEAN PLATELET VOLUME 8.6 fl (7.4-10.4); MONOCYTE # 0.8 10^3/ul (0.3-0.9); MONOCYTES % 7.2 % (0.0-11.0); NEUTROPHIL # 8.3 10^3/ul (1.6-7.5); NEUTROPHILS % 74.8 % (39.0-77.0); PLATELET COUNT 382 10^3/UL (140-415); RED BLOOD COUNT 5.32 10^6/ul (4.20-5.40); RED CELL DISTRIBUTION WIDTH 21.1 % (11.5-14.5); WHITE BLOOD COUNT 11.1 10^3/ul (4.8-10.8)
[2016-08-08] MEDS: [UNRECOGNIZED DRUG - OTHER] SC SCH ×3 (07:30→17:30)
[2016-08-08 08:02] LABS: POTASSIUM 4.5 mmol/L (3.5-5.1)
[2016-08-08 08:05] LABS: CREATININE 1.18 mg/dl (0.44-1.00)
[2016-08-08 08:06] LABS: CALCIUM 9.3 mg/dl (8.4-10.2)
[2016-08-08] MEDS: METOPROLOL (XL) 100 MG TAB PO SCH (08:34)
[2016-08-08] MEDS: BRIMONIDINE 0.15% 5 ML OPH BOTH EYES SCH ×2 (08:34→20:20)
[2016-08-08] MEDS: ARIPIPRAZOLE 10 MG TAB PO SCH (08:34)
[2016-08-08] MEDS: ISOSORBIDE MONONITRATE(SR)60 MG TAB PO SCH (08:37)
[2016-08-08] MEDS: CLOPIDOGREL 75 MG TAB PO SCH (08:37)
[2016-08-08] MEDS: SERTRALINE 50 MG TAB PO SCH (08:38)
[2016-08-08] MEDS: EMPAGLIFLOZIN 10 MG TABLET PO SCH (08:38)
[2016-08-08] MEDS: LINAGLIPTIN 5 MG TABLET PO SCH (08:38)
[2016-08-08] MEDS: INSULIN ASPART [NOVOLOG] 3 ML PEN SC SCH ×6 (08:39→20:20)
[2016-08-08] MEDS: INSULIN GLARGINE [LANtus] 3 ML PEN SC SCH (08:40)
[2016-08-08] MEDS: ENOXAPARIN 30 MG/0.3 ML SYG SC SCH (08:40)
[2016-08-08] MEDS ORDERED: [UNRECOGNIZED DRUG - OTHER] PO SCH (09:00)
[2016-08-08] MEDS ORDERED: EMPAGLIFLOZIN PO SCH (09:00)
[2016-08-08] MEDS ORDERED: LINAGLIPTIN PO SCH (09:00)
--- NOTE | 2016-08-08 10:20 | CONS ---
Date/Time of Note Date/Time of Note DATE: 08/08/16 TIME: 10:18 Assessment/Plan Assessment/Plan Additional Assessment/Plan 1. Shortness of breath, assess for congestive heart failure - con't gentle diuresis, better BP now 2. Elevated BNP, assess for congestive heart failure. 3. Chest pain, assess for acute coronary syndrome- plan for [facility] now. 4. Abnormal electrocardiogram. Assess for acute coronary syndrome. 5. Hypertensive urgency, emergency. Currently improving on oral antihypertensives. BETTER. 6. Diabetes mellitus, uncontrolled blood sugars. 7. Anemia. 8. Leukocytosis. 9. Psych disorder- no agitation noted. Consultation Date/Type/Reason Admit Date/Time August 06, 2016 at 19:45 Initial Consult Date 24 HR Interval Summary Free Text/Dictation No acute events - STRESS TEST planned today. ROS: No fever, no chills, no nausea, no vomiting, no diarrhea/constipation No recent weight changes No chest pain, no PND, no orthopnea No dizziness, blurred vision No thirst, no heat or cold intolerance Exam/Review of Systems Vital Signs Vitals Vital Signs Date Time Temp Pulse Resp B/P Pulse Ox O2 Delivery O2 Flow Rate FiO2 08/08/16 08:11 66 08/08/16 07:48 98.5 18 180/76 97 08/07/16 20:15 Nasal Cannula 2.0 Intake and Output 08/07/16 08/07/16 08/08/16 15:00 23:00 07:00 Intake Total 1000 ml 250 ml Output Total 1600 ml Balance 1000 ml -1350 ml Exam General: WN/WD/NAD, AOx 3 HEENT: Unicetric/atraumatic/EOMI (follows commands) NECK: JVD elevated, no thyromegaly Lymph: no lymphadenopathy HEART: regular with no S3, II/ systolic murmur at apex LUNGS: Coarse sounds ABD: soft, NT, ND, +BS : Intact Neuro: non focal SKIN: chronic changes EXT: trace edema Results Result Diagram: 08/08/16 0634 08/08/16 0635 Results 24 hrs Laboratory Tests Test 08/07/16 11:48 08/07/16 17:02 08/07/16 20:22 08/08/16 00:50 Bedside Glucose 349 H 284 H 380 H Troponin I < 0.012 Test 08/08/16 02:18 08/08/16 06:34 08/08/16 06:35 08/08/16 07:56 Bedside Glucose 251 H 310 H White Blood Count 11.1 H Red Blood Count 5.32 Hemoglobin 12.6 Hematocrit 43.1 Mean Corpuscular Volume 81.0 L Mean Corpuscular Hemoglobin 23.7 L Mean Corpuscular Hemoglobin Concent 29.2 L Red Cell Distribution Width 21.1 H Platelet Count 382 Mean Platelet Volume 8.6 Neutrophils % 74.8 Lymphocytes % 14.5 L Monocytes % 7.2 Eosinophils % 2.4 Basophils % 0.4 Nucleated Red Blood Cells % 0.0 Neutrophils # 8.3 H Lymphocytes # 1.6 Monocytes # 0.8 Eosinophils # 0.3 Basophils # 0.0 Nucleated Red Blood Cells # 0.0 Triglycerides Level 269 H Cholesterol Level 181 LDL Cholesterol, Calculated 97 HDL Cholesterol 30 L Cholesterol/HDL Ratio 6.0 Sodium Level 138 Potassium Level 4.5 Chloride Level 92 L Carbon Dioxide Level 32 H Anion Gap 19 H Blood Urea Nitrogen 40 H Creatinine 1.18 H Glucose Level 310 H Calcium Level 9.3 Troponin I < 0.012 Medications Medications Current Medications Ondansetron HCl (Zofran Inj) 4 mg Q6H PRN IV NAUSEA AND/OR VOMITING; Start at 20:30 Morphine Sulfate (morphine) 2 mg Q4H PRN IV PAIN LEVEL 7-10; Start 08/06/16 at 20:30 Enoxaparin Sodium (Lovenox) 30 mg DAILY SC Last administered on 08/08/16 08:40 ; Admin Dose 30 MG; Start 08/07/16 at 09:00 Furosemide (Lasix) 20 mg BID@,18 IV Last administered on 08/08/16 06:31; Admin Dose 20 MG; Start 08/07/16 at 06:00 Miscellaneous Information 1 ea NOTE XX ; Start 08/06/16 at 20:30 Diagnostic Test (Pha) (Accu-Chek) 1 ea 02 XX Last administered on 08/08/16 02: 15; Admin Dose 1 EA; Start 08/07/16 at 02:00 Miscellaneous Information 1 ea NOTE XX ; Start 08/06/16 at 20:30 Glucose (Glutose) 15 gm Q15M PRN PO DECREASED GLUCOSE; Start 08/06/16 at 20:30 Glucose (Glutose) 22.5 gm Q15M PRN PO DECREASED GLUCOSE; Start 08/06/16 at 20: 30 Dextrose (D50w Syringe) 25 ml Q15M PRN IV DECREASED GLUCOSE; Start 08/06/16 at 20:30 Dextrose (D50w Syringe) 50 ml Q15M PRN IV DECREASED GLUCOSE; Start 08/06/16 at 20:30 Glucagon (Glucagen) 1 mg Q15M PRN IM DECREASED GLUCOSE; Start 08/06/16 at 20:30 Glucose (Glutose) 15 gm Q15M PRN BUCCAL DECREASED GLUCOSE; Start 08/06/16 at 20 :30 Aripiprazole (Abilify) 10 mg DAILY PO Last administered on 08/08/16 08:34; Admin Dose 10 MG; Start 08/08/16 at 09:00 Atorvastatin Calcium (Lipitor) 40 mg HS PO Last administered on 08/07/16 20:31 ; Admin Dose 40 MG; Start 08/07/16 at 21:00 Brimonidine Tartrate (Alphagan P 0.15%) 1 drop BID BOTH EYES Last administered on 08/08/16 08:34; Admin Dose 1 DROP; Start 08/07/16 at 21:00 Clopidogrel Bisulfate (plaVIX) 75 mg DAILY PO Last administered on 08/08/16 08 :37; Admin Dose 75 MG; Start 08/08/16 at 09:00 Insulin Glargine (Lantus) 10 unit BID SC Last administered on 08/08/16 08:40; Admin Dose 10 UNIT; Start 08/07/16 at 21:00 Isosorbide Mononitrate (Imdur) 60 mg DAILY PO Last administered on 08/08/16 08 :37; Admin Dose 60 MG; Start 08/08/16 at 09:00 Metoprolol Succinate (Toprol Xl) 100 mg DAILY PO Last administered on 08:34; Admin Dose 100 MG; Start 08/08/16 at 09:00 Sertraline HCl (Zoloft) 50 mg DAILY PO Last administered on 08/08/16 08:38; Admin Dose 50 MG; Start 08/08/16 at 09:00 Pantoprazole Sodium (Protonix) 20 mg BID@18 PO Last administered on 06:30; Admin Dose 20 MG; Start 08/07/16 at 18:00 Empaglifozin (Jardiance) 25 mg DAILY@08 PO Last administered on 08/08/16 08:38 ; Admin Dose 25 MG; Start 08/08/16 at 08:00 Linagliptin (Tradjenta) 5 mg DAILY@08 PO Last administered on 08/08/16 08:38; Admin Dose 5 MG; Start 08/08/16 at 08:00 Nitroglycerin (Nitroglycerin (Sl Tab) 0.4 Mg) 1 tab Q5M PRN SL ANGINA; Start at 20:00 WERNER FALCON MD August 08, 2016 10:20
[2016-08-08 11:07] LABS: AADO2 Arterial 34.7 mmHg (7.0-24.0); Allen Test ACCEPTAB; Arterial Base Excess 4.3 mmol/L (-3.0-3); Arterial COHb 0.8 % (0.0-3.0); Arterial Fraction of Oxyhgb 95.8 % (93.0-99.0); Arterial HCO3 30.3 mmol/L (22.0-26.0); Arterial MetHb 0.3 % (0.0-1.5); Arterial Total Hemglobin 13.5 g/dl (12.0-18.0); MODE NASAL CANNULA
--- NOTE | 2016-08-08 11:08 | CONS ---
Date/Time of Note Date/Time of Note DATE: 08/08/16 TIME: 11:04 Assessment/Plan Assessment/Plan Additional Assessment/Plan Chest x-ray was reviewed from the of this month showing mild thyromegaly without any other findings. Assessment recommendations; 1. Patient admitted for shortness of breath likely on the basis of diastolic dysfunction. 2. History of prior coronary artery disease, patient also now having some chest pressure. The findings could be indicative of underlying coronary artery disease. 3. History of diabetes, hypertension, CHF. However the patient's BNP level is not significantly elevated during current admission. Continue current treatment. Patient is to get scheduled for a nuclear stress test. Consultation Date/Type/Reason Admit Date/Time August 06, 2016 at 19:45 Date of Consultation: August 08, 2016 Type of Consultation: Pulmonary Reason for Consultation Pulmonary consultations requested for evaluation of shortness of breath. History presenting any; Patient is a pleasant 74-year-old lady who came into the emergency room on the of this month with a few days history of increasing shortness of breath as well as lower extremity edema. Upon evaluation a chest x-ray was done which was essentially unremarkable except for mild cardio megaly. Patient however was quite hypertensive and most of the findings and all have been attributed to diastolic dysfunction. The patient is significantly improved the last 24 hours. She denies any coughing, wheezing. She did have some chest pressure on presentation with interval resolution. Past medical history; 1. History of hypertension. 2. Coronary artery disease, status post intervention in the past. 3. Diabetes. 4. Hypertension. 5. CHF. 6. History of hysterectomy. Next Medications; reviewed. Allergies; none. Family history; noncontributory. 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 Review of systems; denies any headache, visual changes. Because of breath is improving. Edema also is improving. There is a chronic orthopnea. Has gained weight. Denies any melena, hematochezia. Any urinary symptoms. General exam; elderly lady, awake alert currently in no distress appears quite overweight. Past Surgical History Past Surgical Hx: other Social History Smoking Status: Never smoker Exam/Review of Systems Vital Signs Vitals Vital Signs Date Time Temp Pulse Resp B/P Pulse Ox O2 Delivery O2 Flow Rate FiO2 08/08/16 08:11 66 08/08/16 08:00 Nasal Cannula 2.0 08/08/16 07:48 98.5 18 180/76 97 Intake and Output 08/07/16 08/07/16 08/08/16 15:00 23:00 07:00 Intake Total 1000 ml 250 ml Output Total 1600 ml Balance 1000 ml -1350 ml Exam HEENT exam; supple neck, JVD difficult to see because of short neck. Pupils are midsize reactive to light. No neck masses, no thyromegaly. Chest examined; diminished but clear vessel. S1-S2 audible, no murmurs. Regular rhythm. Abdomen examination; soft, protuberant. Nontender. Bowel sounds audible. Extremity exam is; trace peripheral edema lower extremities. Pulses 1+ bilaterally. 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 Results Result Diagram: 08/08/16 0634 08/08/16 0635 Results 24 hrs Laboratory Tests Test 08/07/16 11:48 08/07/16 17:02 08/07/16 20:22 08/08/16 00:50 Bedside Glucose 349 H 284 H 380 H Troponin I < 0.012 Test 08/08/16 02:18 08/08/16 06:34 08/08/16 06:35 08/08/16 07:56 Bedside Glucose 251 H 310 H White Blood Count 11.1 H Red Blood Count 5.32 Hemoglobin 12.6 Hematocrit 43.1 Mean Corpuscular Volume 81.0 L Mean Corpuscular Hemoglobin 23.7 L Mean Corpuscular Hemoglobin Concent 29.2 L Red Cell Distribution Width 21.1 H Platelet Count 382 Mean Platelet Volume 8.6 Neutrophils % 74.8 Lymphocytes % 14.5 L Monocytes % 7.2 Eosinophils % 2.4 Basophils % 0.4 Nucleated Red Blood Cells % 0.0 Neutrophils # 8.3 H Lymphocytes # 1.6 Monocytes # 0.8 Eosinophils # 0.3 Basophils # 0.0 Nucleated Red Blood Cells # 0.0 Triglycerides Level 269 H Cholesterol Level 181 LDL Cholesterol, Calculated 97 HDL Cholesterol 30 L Cholesterol/HDL Ratio 6.0 Sodium Level 138 Potassium Level 4.5 Chloride Level 92 L Carbon Dioxide Level 32 H Anion Gap 19 H Blood Urea Nitrogen 40 H Creatinine 1.18 H Glucose Level 310 H Calcium Level 9.3 Troponin I < 0.012 Test 08/08/16 10:18 Bedside Glucose 269 H Medications Medications Current Medications Ondansetron HCl (Zofran Inj) 4 mg Q6H PRN IV NAUSEA AND/OR VOMITING; Start at 20:30 Morphine Sulfate (morphine) 2 mg Q4H PRN IV PAIN LEVEL 7-10; Start 08/06/16 at 20:30 Enoxaparin Sodium (Lovenox) 30 mg DAILY SC Last administered on 08/08/16 08:40 ; Admin Dose 30 MG; Start 08/07/16 at 09:00 Furosemide (Lasix) 20 mg BID@06,18 IV Last administered on 08/08/16 06:31; Admin Dose 20 MG; Start 08/07/16 at 06:00 Miscellaneous Information 1 ea NOTE XX ; Start 08/06/16 at 20:30 Diagnostic Test (Pha) (Accu-Chek) 1 ea 02 XX Last administered on 08/08/16 02: 15; Admin Dose 1 EA; Start 08/07/16 at 02:00 Miscellaneous Information 1 ea NOTE XX ; Start 08/06/16 at 20:30 Glucose (Glutose) 15 gm Q15M PRN PO DECREASED GLUCOSE; Start 08/06/16 at 20:30 Glucose (Glutose) 22.5 gm Q15M PRN PO DECREASED GLUCOSE; Start 08/06/16 at 20: 30 Dextrose (D50w Syringe) 25 ml Q15M PRN IV DECREASED GLUCOSE; Start 08/06/16 at 20:30 Dextrose (D50w Syringe) 50 ml Q15M PRN IV DECREASED GLUCOSE; Start 08/06/16 at 20:30 Glucagon (Glucagen) 1 mg Q15M PRN IM DECREASED GLUCOSE; Start 08/06/16 at 20:30 Glucose (Glutose) 15 gm Q15M PRN BUCCAL DECREASED GLUCOSE; Start 08/06/16 at 20 :30 Aripiprazole (Abilify) 10 mg DAILY PO Last administered on 08/08/16 08:34; Admin Dose 10 MG; Start 08/08/16 at 09:00 Atorvastatin Calcium (Lipitor) 40 mg HS PO Last administered on 08/07/16 20:31 ; Admin Dose 40 MG; Start 08/07/16 at 21:00 Brimonidine Tartrate (Alphagan P 0.15%) 1 drop BID BOTH EYES Last administered on 08/08/16 08:34; Admin Dose 1 DROP; Start 08/07/16 at 21:00 Clopidogrel Bisulfate (plaVIX) 75 mg DAILY PO Last administered on 08/08/16 08 :37; Admin Dose 75 MG; Start 08/08/16 at 09:00 Insulin Glargine (Lantus) 10 unit BID SC Last administered on 08/08/16 08:40; Admin Dose 10 UNIT; Start 08/07/16 at 21:00 Isosorbide Mononitrate (Imdur) 60 mg DAILY PO Last administered on 08/08/16 08 :37; Admin Dose 60 MG; Start 08/08/16 at 09:00 Metoprolol Succinate (Toprol Xl) 100 mg DAILY PO Last administered on 08:34; Admin Dose 100 MG; Start 08/08/16 at 09:00 Sertraline HCl (Zoloft) 50 mg DAILY PO Last administered on 08/08/16 08:38; Admin Dose 50 MG; Start 08/08/16 at 09:00 Pantoprazole Sodium (Protonix) 20 mg BID@06,18 PO Last administered on 06:30; Admin Dose 20 MG; Start 08/07/16 at 18:00 Empaglifozin (Jardiance) 25 mg DAILY@08 PO Last administered on 08/08/16 08:38 ; Admin Dose 25 MG; Start 08/08/16 at 08:00 Linagliptin (Tradjenta) 5 mg DAILY@08 PO Last administered on 08/08/16 08:38; Admin Dose 5 MG; Start 08/08/16 at 08:00 Nitroglycerin (Nitroglycerin (Sl Tab) 0.4 Mg) 1 tab Q5M PRN SL ANGINA; Start at 20:00 MIGUEL RIVERA August 08, 2016 11:08
[2016-08-08] MEDS ORDERED: REGADENOSON 0.4 MG/5 ML SYG ONE (11:26)
--- NOTE | 2016-08-08 12:14 | ECORPT ---
DATE OF SERVICE: PROCEDURE: Lexiscan Cardiolite stress test. REFERRING PHYSICIAN: Dr. Shepherd. REASON FOR EVALUATION: Chest pain. DESCRIPTION OF PROCEDURE: The patient was brought to the heart station. She had blood pressure 144 /55. She had successful Lexiscan injection. The imaging portion will be dictated separately. Dictated By: WERENR FALCON MD ML/NTS Conf#: [id number] DID#: [id number]
--- NOTE | 2016-08-08 12:40 | PN ---
Date/Time of Note Date/Time of Note DATE: 08/08/16 TIME: 12:31 Assessment/Plan VTE Prophylaxis VTE Prophylaxis Intervention: LMWH, SCD's Lines/Catheters IV C[facility]ter Type [facility]from [facility] [facility] Urinary Cath still in place: No Assessment/Plan Chief Complaint/Hosp Course ASSESSMENT AND PLAN: 1. Diastolic acute on chronic congestive heart failure exacerbation. Continue Lasix IV. Dr. Cota is following patient. Cardiology consultation. Continue to monitor electrolytes. 2. Hypertension. Continue Toprol. 3. Hyperkalemia, resolved. 4. Bilateral lower extremity edema secondary to change in CHF. Will obtain venous ultrasound to rule out any possibility of deep venous thrombosis. 5. Diabetes mellitus type 2. Continue patient's home regimen. Dr. Bartholomew is asked to see patient in endocrinology consultation. 6. Acute on chronic kidney disease. Continue to monitor BUN and creatinine. 7. Rule out acute coronary syndrome, patient is undergoing stress test. 8. Hyperlipidemia. Continue statin. 9. Morbid obesity with BMI 50. Continue Lovenox for deep venous thrombosis prophylaxis and Pepcid for peptic ulcer disease prophylaxis. Further recommendations based on clinical course. Plan of care discussed with Dr. Garza. Problems: Subjective 24 Hr Interval Summary Free Text/Dictation Patient is in nuclear metastases undergoing a Lexiscan, nurse called me earlier complaining that the patient is more lethargic than yesterday however arousable , ABG was elevated CO2, Dr. Castañeda is asked to see patient in pulmonology consultation, patient was history of COPD most likely will benefit BiPAP at night. Exam/Review of Systems Vital Signs Vitals Vital Signs Date Time Temp Pulse Resp B/P Pulse Ox O2 Delivery O2 Flow Rate FiO2 08/08/16 08:11 66 08/08/16 08:00 Nasal Cannula 2.0 08/08/16 07:48 98.5 18 180/76 97 Intake and Output 08/07/16 08/07/16 08/08/16 15:00 23:00 07:00 Intake Total 1000 ml 250 ml Output Total 1600 ml Balance 1000 ml -1350 ml Results Result Diagram: 08/08/16 0634 08/08/16 0635 Results 24 hrs Laboratory Tests Test 08/07/16 17:02 08/07/16 20:22 08/08/16 00:50 08/08/16 02:18 Bedside Glucose 284 H 380 H 251 H Troponin I < 0.012 Test 08/08/16 06:34 08/08/16 06:35 08/08/16 07:56 08/08/16 10:15 White Blood Count 11.1 H Red Blood Count 5.32 Hemoglobin 12.6 Hematocrit 43.1 Mean Corpuscular Volume 81.0 L Mean Corpuscular Hemoglobin 23.7 L Mean Corpuscular Hemoglobin Concent 29.2 L Red Cell Distribution Width 21.1 H Platelet Count 382 Mean Platelet Volume 8.6 Neutrophils % 74.8 Lymphocytes % 14.5 L Monocytes % 7.2 Eosinophils % 2.4 Basophils % 0.4 Nucleated Red Blood Cells % 0.0 Neutrophils # 8.3 H Lymphocytes # 1.6 Monocytes # 0.8 Eosinophils # 0.3 Basophils # 0.0 Nucleated Red Blood Cells # 0.0 Triglycerides Level 269 H Cholesterol Level 181 LDL Cholesterol, Calculated 97 HDL Cholesterol 30 L Cholesterol/HDL Ratio 6.0 Sodium Level 138 Potassium Level 4.5 Chloride Level 92 L Carbon Dioxide Level 32 H Anion Gap 19 H Blood Urea Nitrogen 40 H Creatinine 1.18 H Glucose Level 310 H Calcium Level 9.3 Troponin I < 0.012 Bedside Glucose 310 H Blood Gas Specimen Source Blood arterial Arterial Blood Date Drawn 08/08/2016 10:40:43 AM Arterial Blood pH (Temp corrected) 7.393 Arterial Blood pCO2 (Temp correct) 50.8 H Arterial Blood pO2 (Temp corrected) 97.7 H Arterial Blood HCO3 30.3 H Arterial Blood Base Excess 4.3 H Arterial Blood Oxygen Saturation 96.9 [place] Test ACCEPTAB Arterial Blood Gas Puncture Site Right Radial Arterial Blood Carboxyhemoglobin 0.8 Arterial Blood Methemoglobin 0.3 Blood Gas A-a O2 Differential 34.7 H Oxyhemoglobin Percent 95.8 Total Hemoglobin 13.5 Blood Gas Temperature 37.0 Blood Gas Modality NASAL CANNULA FiO2 27.0 Blood Gas Notified Whom JLD Blood Gas Notified Time 08/08/2016 11:07:47 AM Test 08/08/16 10:18 Bedside Glucose 269 H Medications Medications Current Medications Ondansetron HCl (Zofran Inj) 4 mg Q6H PRN IV NAUSEA AND/OR VOMITING; Start at 20:30 Morphine Sulfate (morphine) 2 mg Q4H PRN IV PAIN LEVEL 7-10; Start 08/06/16 at 20:30 Enoxaparin Sodium (Lovenox) 30 mg DAILY SC Last administered on 08/08/16 08:40 ; Admin Dose 30 MG; Start 08/07/16 at 09:00 Furosemide (Lasix) 20 mg BID@06,18 IV Last administered on 08/08/16 06:31; Admin Dose 20 MG; Start 08/07/16 at 06:00 Miscellaneous Information 1 ea NOTE XX ; Start 08/06/16 at 20:30 Diagnostic Test (Pha) (Accu-Chek) 1 ea 02 XX Last administered on 08/08/16 02: 15; Admin Dose 1 EA; Start 08/07/16 at 02:00 Miscellaneous Information 1 ea NOTE XX ; Start 08/06/16 at 20:30 Glucose (Glutose) 15 gm Q15M PRN PO DECREASED GLUCOSE; Start 08/06/16 at 20:30 Glucose (Glutose) 22.5 gm Q15M PRN PO DECREASED GLUCOSE; Start 08/06/16 at 20: 30 Dextrose (D50w Syringe) 25 ml Q15M PRN IV DECREASED GLUCOSE; Start 08/06/16 at 20:30 Dextrose (D50w Syringe) 50 ml Q15M PRN IV DECREASED GLUCOSE; Start 08/06/16 at 20:30 Glucagon (Glucagen) 1 mg Q15M PRN IM DECREASED GLUCOSE; Start 08/06/16 at 20:30 Glucose (Glutose) 15 gm Q15M PRN BUCCAL DECREASED GLUCOSE; Start 08/06/16 at 20 :30 Aripiprazole (Abilify) 10 mg DAILY PO Last administered on 08/08/16 08:34; Admin Dose 10 MG; Start 08/08/16 at 09:00 Atorvastatin Calcium (Lipitor) 40 mg HS PO Last administered on 08/07/16 20:31 ; Admin Dose 40 MG; Start 08/07/16 at 21:00 Brimonidine Tartrate (Alphagan P 0.15%) 1 drop BID BOTH EYES Last administered on 08/08/16 08:34; Admin Dose 1 DROP; Start 08/07/16 at 21:00 Clopidogrel Bisulfate (plaVIX) 75 mg DAILY PO Last administered on 08/08/16 08 :37; Admin Dose 75 MG; Start 08/08/16 at 09:00 Insulin Glargine (Lantus) 10 unit BID SC Last administered on 08/08/16 08:40; Admin Dose 10 UNIT; Start 08/07/16 at 21:00 Isosorbide Mononitrate (Imdur) 60 mg DAILY PO Last administered on 08/08/16 08 :37; Admin Dose 60 MG; Start 08/08/16 at 09:00 Metoprolol Succinate (Toprol Xl) 100 mg DAILY PO Last administered on 08:34; Admin Dose 100 MG; Start 08/08/16 at 09:00 Sertraline HCl (Zoloft) 50 mg DAILY PO Last administered on 08/08/16 08:38; Admin Dose 50 MG; Start 08/08/16 at 09:00 Pantoprazole Sodium (Protonix) 20 mg BID@06,18 PO Last administered on 06:30; Admin Dose 20 MG; Start 08/07/16 at 18:00 Empaglifozin (Jardiance) 25 mg DAILY@08 PO Last administered on 08/08/16 08:38 ; Admin Dose 25 MG; Start 08/08/16 at 08:00 Linagliptin (Tradjenta) 5 mg DAILY@08 PO Last administered on 08/08/16 08:38; Admin Dose 5 MG; Start 08/08/16 at 08:00 Nitroglycerin (Nitroglycerin (Sl Tab) 0.4 Mg) 1 tab Q5M PRN SL ANGINA; Start at 20:00 MADHU CAZARES August 08, 2016 12:40
--- NOTE | 2016-08-08 14:37 | RADRPT ---
PROCEDURE: Lexiscan myocardial perfusion study CLINICAL INDICATION: 75 -year-old patient complaining of chest pain. TECHNIQUE: Lexiscan 0.4 mg intravenously separate acquisition gated myocardial perfusion SPECT usi ng Tc 99m Myoview 34.1 mCi intravenously at stress and Tc-99m Myoview, 11.3 mCi intravenously at res t was performed using the rest/stress sequence. Poststress Myoview SPECT images were obtained in th e supine position. COMPARISON: December 02, 2014. FINDINGS: Perfusion images reveal no evidence of perfusion defects. Lexiscan post stress gated SPECT images demonstrate no wall motion abnormalities. IMPRESSION: 1. No evidence of new perfusion defects. 2. No new wall motion abnormalities. 3. The left ventricle ejection fraction at stress is 70% unchanged since the previous study. A call report was made to Dr. Rainey at 02:37 p.m. on August 08, 2016. RPTAT: HH .Marilou Alegre MD, MD Date Time Electronically viewed and signed by .Marilou Alegre MD, on 08/08/2016 14:37 .L/
--- NOTE | 2016-08-08 15:19 | RADRPT ---
PROCEDURE: US bilateral lower extremity veins. CLINICAL INDICATION: Bilateral leg pain and swelling. Shortness of breath. TECHNIQUE: Multiple longitudinal and transverse images of the bilateral lower extremity veins were obtained with martinez scale and color Doppler imaging. The common femoral vein, femoral vein, and popl iteal vein were evaluated. 2D grayscale measurements with compression sonography, color Doppler, and pulsed Doppler with augmentation. COMPARISON: No prior studies are available for comparison. FINDINGS: The bilateral common femoral, femoral and popliteal veins are normally compressible throughout. Col or flow demonstrates normal filling of the vessels. Normal waveforms are visualized and there is no rmal response to augmentation. IMPRESSION: 1. No evidence of deep vein thrombosis involving either lower extremity. RPTAT: QQ .Uri Ley MD, MD Date Time Electronically viewed and signed by .Uri Ley MD, on 08/08/2016 15:19 .R/
[2016-08-08] MEDS: ATORVASTATIN 40 MG TAB PO SCH (20:20)
[2016-08-08] MEDS: NPH, HUMAN INSULIN ISOPHANE 3ML VIAL SC SCH (20:22)
--- NOTE | 2016-08-08 21:29 | CONS ---
Date/Time of Note Date/Time of Note DATE: 08/08/16 TIME: 21:19 Assessment/Plan Assessment/Plan Problems: (1) DM w/o complication type II, uncontrolled Status: Chronic Comment: As an outpatient, this patient requires U-500 insulin to manage her glucose. This insulin is not available in hospital, nor should it be. However , in hospital setting, we have had great success with this regimen and we will resume it: Lantus 45 qam NPH 38 qhs Novolog Reeval tomorrow Consultation Date/Type/Reason Admit Date/Time August 06, 2016 at 19:45 Date of Consultation: August 08, 2016 Type of Consultation: Endocrinology Reason for Consultation [id number] Referring Provider: MADHU CAZARES Hx of Present Illness 75 y/o HF w/ h/o T2DM w/ multiple complications, CKD stage 2-3, chronic diastolic CHF, CAD, HTN, glaucoma, vision loss, depression, anxiety, hyperlipidemia, and morbid obesity. As an outpt. she is maintained on very high doses of insulin. In [facility] until recently when she developed SOB, chest pressure, BLE edema. [place] like she was drowning. 2 days ago came to [facility] and was admitted. As usual, very difficult to control glucose. Endo consulted. Constitutional: requiring O2 Eyes: no complaints ENT: no complaints Respiratory: shortness of breath Cardiovascular: chest pain, edema, orthopenea Gastrointestinal: no complaints Genitourinary: no complaints Musculoskeletal: no complaints Neurologic: no complaints Past Medical History Medical History: congestive heart failure, coronary artery disease, diabetes, high cholesterol, hypertension, renal disease, other (glaucoma w/ B vision loss , anxiety, depression) Past Surgical History Past Surgical Hx: other (Ovarian cystectomy, BECKY, laser eye surgery) Family History Significant Family History: cancer (uterine-sister), diabetes, other (EtOH abuse in father) Social History b. [place], in [facility] 43 y, from , 1 daughter Alcohol Use: none Smoking Status: Never smoker Drug Use: none Exam/Review of Systems Vital Signs Vitals VS - Last 72 Hours, by Label Date Time Temp Pulse Resp B/P Pulse Ox O2 Delivery O2 Flow Rate FiO2 08/08/16 19:55 97.5 64 20 127/57 94 08/08/16 16:47 65 08/08/16 15:54 98.3 63 18 120/58 96 08/08/16 10:00 72 160/52 08/08/16 08:11 66 08/08/16 08:00 Nasal Cannula 2.0 08/08/16 07:48 98.5 71 18 180/76 97 08/08/16 04:15 62 08/08/16 04:03 98.1 74 19 156/60 96 08/08/16 00:31 86 08/07/16 23:41 98.1 70 17 143/65 95 08/07/16 20:15 Nasal Cannula 2.0 08/07/16 20:08 75 08/07/16 19:52 98.5 71 18 142/63 92 08/07/16 16:08 74 08/07/16 15:44 98.6 74 20 125/56 94 08/07/16 12:05 70 08/07/16 11:52 98.0 70 20 137/58 91 08/07/16 08:43 63 08/07/16 07:25 97.7 74 20 166/73 94 08/07/16 04:12 70 08/07/16 03:44 98.6 74 20 130/69 96 08/07/16 00:11 70 08/06/16 23:57 98.6 73 22 136/78 96 08/06/16 21:51 Nasal Cannula 2.0 08/06/16 20:10 68 08/06/16 20:00 98.2 69 20 150/84 93 08/06/16 18:40 97.4 68 24 165/97 98 8.0 08/06/16 17:40 3.0 08/06/16 17:40 83 22 96 Nasal Cannula 3.0 08/06/16 16:15 Nasal Cannula 2 08/06/16 15:50 98.3 69 24 196/76 94 Vital Signs Date Time Temp Pulse Resp B/P Pulse Ox O2 Delivery O2 Flow Rate FiO2 08/08/16 19:55 97.5 64 20 127/57 94 08/08/16 08:00 Nasal Cannula 2.0 Intake and Output 08/07/16 08/07/16 08/08/16 14:59 22:59 06:59 Intake Total 1000 ml 250 ml Output Total 1600 ml Balance 1000 ml -1350 ml Exam Constitutional: alert, obese, oriented Psych: nl mood/affect, no complaints Eyes: EOMI, PERRL, nl conjunctiva, nl lids, nl sclera ENMT: mucosa pink and moist, nl external ears & nose Neck: non-tender, supple, No bruits, No masses, No thyromegaly Respiratory: clear to auscultation, normal air movement Cardiovascular: nl pulses, regular rate and rhythm, No edema, No murmurs/extra sounds, No rub Gastrointestinal: bowel sounds, nl liver, spleen, non-tender, soft, No mass, No rebound or guarding Musculoskeletal: nl extremities to inspection Extremities: normal pulses, No clubbing, No cyanosis, No edema Neurological: 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 MACHINIST II-XII intact, nl mental status, nl speech, nl strength Additional Comments Bedside Glucose - 72 Hours Test 08/06/16 22:15 08/07/16 07:51 08/07/16 08:32 08/07/16 11:48 Bedside Glucose 115mg/dL (70-220) 354mg/dL (70-220) H 348mg/dL (70-220) H 349mg/dL (70-220) H Test 08/07/16 17:02 08/07/16 20:22 08/08/16 02:18 08/08/16 07:56 Bedside Glucose 284mg/dL (70-220) H 380mg/dL (70-220) H 251mg/dL (70-220) H 310mg/dL (70-220) H Test 08/08/16 10:18 08/08/16 13:38 08/08/16 17:07 08/08/16 20:19 Bedside Glucose 269mg/dL (70-220) H 255mg/dL (70-220) H 278mg/dL (70-220) H 149mg/dL (70-220) Results Result Diagram: 08/08/16 0634 08/08/16 0635 Results 24 hrs Laboratory Tests Test 08/08/16 00:50 08/08/16 02:18 08/08/16 06:34 08/08/16 06:35 Troponin I < 0.012 < 0.012 Bedside Glucose 251 H White Blood Count 11.1 H Red Blood Count 5.32 Hemoglobin 12.6 Hematocrit 43.1 Mean Corpuscular Volume 81.0 L Mean Corpuscular Hemoglobin 23.7 L Mean Corpuscular Hemoglobin Concent 29.2 L Red Cell Distribution Width 21.1 H Platelet Count 382 Mean Platelet Volume 8.6 Neutrophils % 74.8 Lymphocytes % 14.5 L Monocytes % 7.2 Eosinophils % 2.4 Basophils % 0.4 Nucleated Red Blood Cells % 0.0 Neutrophils # 8.3 H Lymphocytes # 1.6 Monocytes # 0.8 Eosinophils # 0.3 Basophils # 0.0 Nucleated Red Blood Cells # 0.0 Triglycerides Level 269 H Cholesterol Level 181 LDL Cholesterol, Calculated 97 HDL Cholesterol 30 L Cholesterol/HDL Ratio 6.0 Sodium Level 138 Potassium Level 4.5 Chloride Level 92 L Carbon Dioxide Level 32 H Anion Gap 19 H Blood Urea Nitrogen 40 H Creatinine 1.18 H Glucose Level 310 H Calcium Level 9.3 Test 08/08/16 07:56 08/08/16 10:15 08/08/16 10:18 08/08/16 13:38 Bedside Glucose 310 H 269 H 255 H Blood Gas Specimen Source Blood arterial Arterial Blood Date Drawn 08/08/2016 10:40:43 AM Arterial Blood pH (Temp corrected) 7.393 Arterial Blood pCO2 (Temp correct) 50.8 H Arterial Blood pO2 (Temp corrected) 97.7 H Arterial Blood HCO3 30.3 H Arterial Blood Base Excess 4.3 H Arterial Blood Oxygen Saturation 96.9 [place] Test ACCEPTAB Arterial Blood Gas Puncture Site Right Radial Arterial Blood Carboxyhemoglobin 0.8 Arterial Blood Methemoglobin 0.3 Blood Gas A-a O2 Differential 34.7 H Oxyhemoglobin Percent 95.8 Total Hemoglobin 13.5 Blood Gas Temperature 37.0 Blood Gas Modality NASAL CANNULA FiO2 27.0 Blood Gas Notified Whom JLD Blood Gas Notified Time 08/08/2016 11:07:47 AM Test 08/08/16 17:07 08/08/16 20:19 Bedside Glucose 278 H 149 Medications Medications Current Medications Ondansetron HCl (Zofran Inj) 4 mg Q6H PRN IV NAUSEA AND/OR VOMITING; Start at 20:30 Morphine Sulfate (morphine) 2 mg Q4H PRN IV PAIN LEVEL 7-10; Start 08/06/16 at 20:30 Enoxaparin Sodium (Lovenox) 30 mg DAILY SC Last administered on 08/08/16t 08:40 ; Admin Dose 30 MG; Start 08/07/16 at 09:00 Furosemide (Lasix) 20 mg BID@06,18 IV Last administered on 08/08/16 17:27; Admin Dose 20 MG; Start 08/07/16 at 06:00 Miscellaneous Information 1 ea NOTE XX ; Start 08/06/16 at 20:30 Diagnostic Test (Pha) (Accu-Chek) 1 ea 02 XX Last administered on 08/08/16 02: 15; Admin Dose 1 EA; Start 08/07/16 at 02:00 Miscellaneous Information 1 ea NOTE XX ; Start 08/06/16 at 20:30 Glucose (Glutose) 15 gm Q15M PRN PO DECREASED GLUCOSE; Start 08/06/16 at 20:30 Glucose (Glutose) 22.5 gm Q15M PRN PO DECREASED GLUCOSE; Start 08/06/16 at 20: 30 Dextrose (D50w Syringe) 25 ml Q15M PRN IV DECREASED GLUCOSE; Start 08/06/16 at 20:30 Dextrose (D50w Syringe) 50 ml Q15M PRN IV DECREASED GLUCOSE; Start 08/06/16 at 20:30 Glucagon (Glucagen) 1 mg Q15M PRN IM DECREASED GLUCOSE; Start 08/06/16 at 20:30 Glucose (Glutose) 15 gm Q15M PRN BUCCAL DECREASED GLUCOSE; Start 08/06/16 at 20 :30 Aripiprazole (Abilify) 10 mg DAILY PO Last administered on 08/08/16 08:34; Admin Dose 10 MG; Start 08/08/16 at 09:00 Atorvastatin Calcium (Lipitor) 40 mg HS PO Last administered on 08/08/16 20:20 ; Admin Dose 40 MG; Start 08/07/16 at 21:00 Brimonidine Tartrate (Alphagan P 0.15%) 1 drop BID BOTH EYES Last administered on 08/08/16 20:20; Admin Dose 1 DROP; Start 08/07/16 at 21:00 Clopidogrel Bisulfate (plaVIX) 75 mg DAILY PO Last administered on 08/08/16 08 :37; Admin Dose 75 MG; Start 08/08/16 at 09:00 Isosorbide Mononitrate (Imdur) 60 mg DAILY PO Last administered on 08/08/16 08 :37; Admin Dose 60 MG; Start 08/08/16 at 09:00 Metoprolol Succinate (Toprol Xl) 100 mg DAILY PO Last administered on 08:34; Admin Dose 100 MG; Start 08/08/16 at 09:00 Sertraline HCl (Zoloft) 50 mg DAILY PO Last administered on 08/08/16 08:38; Admin Dose 50 MG; Start 08/08/16 at 09:00 Pantoprazole Sodium (Protonix) 20 mg BID@06,18 PO Last administered on 17:27; Admin Dose 20 MG; Start 08/07/16 at 18:00 Empaglifozin (Jardiance) 25 mg DAILY@08 PO Last administered on 08/08/16 08:38 ; Admin Dose 25 MG; Start 08/08/16 at 08:00 Linagliptin (Tradjenta) 5 mg DAILY@08 PO Last administered on 08/08/16 08:38; Admin Dose 5 MG; Start 08/08/16 at 08:00 Nitroglycerin (Nitroglycerin (Sl Tab) 0.4 Mg) 1 tab Q5M PRN SL ANGINA; Start at 20:00 Insulin Glargine (Lantus) 45 unit DAILY@08 SC ; Start 08/09/16 at 08:00 Insulin Human NPH (Humulin N) 38 unit DAILY@20 SC Last administered on 20:22; Admin Dose 38 UNIT; Start 08/08/16 at 20:00 TONY KELLY MD August 08, 2016 21:29
[2016-08-09] VITALS (12 sets, daily range): BP systolic 108–143; BP diastolic 52–76; PULSE 57–64; RESP 19–21
[2016-08-09] MEDS: ACCUCHECK AT 2AM (Patients on SS coverage) XX SCH (02:00)
[2016-08-09] MEDS: PANTOPRAZOLE SODIUM 20 MG TABEC PO SCH ×2 (06:12→17:08)
[2016-08-09] MEDS: FUROSEMIDE 20 MG INJ IV SCH ×2 (06:12→17:09)
[2016-08-09] MEDS: [UNRECOGNIZED DRUG - OTHER] SC SCH ×2 (07:30→17:17)
[2016-08-09] MEDS: BRIMONIDINE 0.15% 5 ML OPH BOTH EYES SCH ×2 (08:19→20:26)
[2016-08-09] MEDS: CLOPIDOGREL 75 MG TAB PO SCH (08:19)
[2016-08-09] MEDS: ISOSORBIDE MONONITRATE(SR)60 MG TAB PO SCH (08:19)
[2016-08-09] MEDS: LINAGLIPTIN 5 MG TABLET PO SCH (08:19)
[2016-08-09 08:20] LABS: ADD SCAN DIFF NO
[2016-08-09] MEDS: ARIPIPRAZOLE 10 MG TAB PO SCH (08:20)
[2016-08-09] MEDS: SERTRALINE 50 MG TAB PO SCH (08:20)
[2016-08-09] MEDS: EMPAGLIFLOZIN 10 MG TABLET PO SCH (08:20)
[2016-08-09] MEDS: METOPROLOL (XL) 100 MG TAB PO SCH (08:20)
[2016-08-09] MEDS: ENOXAPARIN 30 MG/0.3 ML SYG SC SCH (08:21)
[2016-08-09] MEDS: INSULIN GLARGINE [LANtus] 3 ML PEN SC SCH (08:22)
[2016-08-09] MEDS: INSULIN ASPART [NOVOLOG] 3 ML PEN SC SCH ×6 (08:24→20:27)
[2016-08-09 08:25] LABS: BASOPHILS % 0.3 % (0.0-2.0); EOSINOPHILS # 0.4 10^3/ul (0.0-0.5); EOSINOPHILS % 3.2 % (0.0-7.0); HEMATOCRIT 40.3 % (37.0-47.0); HEMOGLOBIN 11.9 g/dl (12.0-16.0); LYMPHOCYTES # 1.4 10^3/ul (0.8-2.9); LYMPHOCYTES % 12.4 % (15.0-51.0); MEAN CORPUSCULAR HEMOGLOBIN 23.8 pg (29.0-33.0); MEAN CORPUSCULAR HGB CONC 29.5 g/dl (32.0-37.0); MEAN CORPUSCULAR VOLUME 80.4 fl (82.0-101.0); MEAN PLATELET VOLUME 8.5 fl (7.4-10.4); MONOCYTE # 0.7 10^3/ul (0.3-0.9); MONOCYTES % 6.6 % (0.0-11.0); NEUTROPHIL # 8.6 10^3/ul (1.6-7.5); PLATELET COUNT 394 10^3/UL (140-415); RED BLOOD COUNT 5.01 10^6/ul (4.20-5.40); RED CELL DISTRIBUTION WIDTH 20.1 % (11.5-14.5); WHITE BLOOD COUNT 11.1 10^3/ul (4.8-10.8)
[2016-08-09 08:38] LABS: POTASSIUM 3.6 mmol/L (3.5-5.1)
[2016-08-09 08:41] LABS: CREATININE 1.34 mg/dl (0.44-1.00)
[2016-08-09] MEDS ORDERED: INSULIN ASPART [NOVOLOG] 3 ML PEN SC SCH (12:00)
--- NOTE | 2016-08-09 12:13 | CONS ---
Date/Time of Note Date/Time of Note DATE: 08/09/16 TIME: 12:11 Assessment/Plan Assessment/Plan Additional Assessment/Plan Assessment recommendations; 1. Patient admitted for shortness of breath likely from hypertension using diastolic dysfunction with significant overall clinical improvement. 2. Negative SPECT stress test done yesterday. 2. Underlying morbid obesity. 4. Likely underlying sleep apnea. 4. History of hypertension. Continue current treatment. Patient can be discharged home. We need to have a sleep study on outpatient basis. Consultation Date/Type/Reason Admit Date/Time August 06, 2016 at 19:45 Initial Consult Date 08/08/16 Type of Consultation: Pulmonary Referring Provider: MADHU CAZARES 24 HR Interval Summary Free Text/Dictation Patient condition stable. Denies any shortness of breath, chest pain, wheezing or sputum production. Patient underwent a SPECT cardiac stress test which was negative for any ischemic findings. General examination; elderly lady, awake alert currently in no distress. Exam/Review of Systems Vital Signs Vitals Vital Signs Date Time Temp Pulse Resp B/P Pulse Ox O2 Delivery O2 Flow Rate FiO2 08/09/16 11:31 97.6 60 20 113/58 98 08/08/16 20:20 Nasal Cannula 2.0 Intake and Output 08/08/16 08/08/16 08/09/16 15:00 23:00 07:00 Intake Total 880 ml 500 ml Output Total 1200 ml 1000 ml Balance -320 ml -500 ml Exam HEENT exam; supple neck, JVD difficult to see because of short neck. No thyromegaly. Patient is edentulous. Pharynx is clear. She has bilateral intraocular lens implants. No thyromegaly. No lymphadenopathy. Neck Chest examination; diminished but clear vessel. No additional. S1-S2 audible, no murmurs. Regular rhythm. Abdomen examination; soft, protuberant. Bowel is audible. No organomegaly. Extremity exam; no peripheral edema. Pulses 1+ bilaterally. [employer] HEAD examination; no focal deficit. Results Result Diagram: 08/09/1671108/09/1612 Results 24 hrs Laboratory Tests Test 08/08/16 13:38 08/08/16 17:07 08/08/16 20:19 08/09/16 07:12 Bedside Glucose 255 H 278 H 149 White Blood Count 11.1 H Red Blood Count 5.01 Hemoglobin 11.9 L Hematocrit 40.3 Mean Corpuscular Volume 80.4 L Mean Corpuscular Hemoglobin 23.8 L Mean Corpuscular Hemoglobin Concent 29.5 L Red Cell Distribution Width 20.1 H Platelet Count 394 Mean Platelet Volume 8.5 Neutrophils % 77.0 Lymphocytes % 12.4 L Monocytes % 6.6 Eosinophils % 3.2 Basophils % 0.3 Nucleated Red Blood Cells % 0.0 Neutrophils # 8.6 H Lymphocytes # 1.4 Monocytes # 0.7 Eosinophils # 0.4 Basophils # 0.0 Nucleated Red Blood Cells # 0.0 Sodium Level 142 Potassium Level 3.6 Chloride Level 94 L Carbon Dioxide Level 32 H Anion Gap 20 H Blood Urea Nitrogen 45 H Creatinine 1.34 H Glucose Level 133 # Calcium Level 9.0 Test 08/09/16 08:18 08/09/16 09:56 08/09/16 11:59 Bedside Glucose 142 230 H 124 Medications Medications Current Medications Ondansetron HCl (Zofran Inj) 4 mg Q6H PRN IV NAUSEA AND/OR VOMITING; Start at 20:30 Morphine Sulfate (morphine) 2 mg Q4H PRN IV PAIN LEVEL 7-10; Start 08/06/16 at 20:30 Enoxaparin Sodium (Lovenox) 30 mg DAILY SC Last administered on 08/09/16 08:21 ; Admin Dose 30 MG; Start 08/07/16 at 09:00 Furosemide (Lasix) 20 mg BID@06,18 IV Last administered on 08/09/16 06:12; Admin Dose 20 MG; Start 08/07/16 at 06:00 Miscellaneous Information 1 ea NOTE XX ; Start 08/06/16 at 20:30 Diagnostic Test (Pha) (Accu-Chek) 1 ea 02 XX Last administered on 08/08/16 02: 15; Admin Dose 1 EA; Start 08/07/16 at 02:00 Miscellaneous Information 1 ea NOTE XX ; Start 08/06/16 at 20:30 Glucose (Glutose) 15 gm Q15M PRN PO DECREASED GLUCOSE; Start 08/06/16 at 20:30 Glucose (Glutose) 22.5 gm Q15M PRN PO DECREASED GLUCOSE; Start 08/06/16 at 20: 30 Dextrose (D50w Syringe) 25 ml Q15M PRN IV DECREASED GLUCOSE; Start 08/06/16 at 20:30 Dextrose (D50w Syringe) 50 ml Q15M PRN IV DECREASED GLUCOSE; Start 08/06/16 at 20:30 Glucagon (Glucagen) 1 mg Q15M PRN IM DECREASED GLUCOSE; Start 08/06/16 at 20:30 Glucose (Glutose) 15 gm Q15M PRN BUCCAL DECREASED GLUCOSE; Start 08/06/16 at 20 :30 Aripiprazole (Abilify) 10 mg DAILY PO Last administered on 08/09/16 08:20; Admin Dose 10 MG; Start 08/08/16 at 09:00 Atorvastatin Calcium (Lipitor) 40 mg HS PO Last administered on 08/08/16 20:20 ; Admin Dose 40 MG; Start 08/07/16 at 21:00 Brimonidine Tartrate (Alphagan P 0.15%) 1 drop BID BOTH EYES Last administered on 08/09/16 08:19; Admin Dose 1 DROP; Start 08/07/16 at 21:00 Clopidogrel Bisulfate (plaVIX) 75 mg DAILY PO Last administered on 08/09/16 08 :19; Admin Dose 75 MG; Start 08/08/16 at 09:00 Isosorbide Mononitrate (Imdur) 60 mg DAILY PO Last administered on 08/09/16 08 :19; Admin Dose 60 MG; Start 08/08/16 at 09:00 Metoprolol Succinate (Toprol Xl) 100 mg DAILY PO Last administered on 08:20; Admin Dose 100 MG; Start 08/08/16 at 09:00 Sertraline HCl (Zoloft) 50 mg DAILY PO Last administered on 08/09/16 08:20; Admin Dose 50 MG; Start 08/08/16 at 09:00 Pantoprazole Sodium (Protonix) 20 mg BID@06,18 PO Last administered on 06:12; Admin Dose 20 MG; Start 08/07/16 at 18:00 Empaglifozin (Jardiance) 25 mg DAILY@08 PO Last administered on 08/09/16 08:20 ; Admin Dose 25 MG; Start 08/08/16 at 08:00 Linagliptin (Tradjenta) 5 mg DAILY@08 PO Last administered on 08/09/16 08:19; Admin Dose 5 MG; Start 08/08/16 at 08:00 Nitroglycerin (Nitroglycerin (Sl Tab) 0.4 Mg) 1 tab Q5M PRN SL ANGINA; Start at 20:00 Insulin Glargine (Lantus) 45 unit DAILY@08 SC Last administered on 08/09/16 08 :22; Admin Dose 45 UNIT; Start 08/09/16 at 08:00 Insulin Human NPH (Humulin N) 38 unit DAILY@20 SC Last administered on 20:22; Admin Dose 38 UNIT; Start 08/08/16 at 20:00 MIGUEL RIVERA August 09, 2016 12:13
--- NOTE | 2016-08-09 14:25 | PN ---
Date/Time of Note Date/Time of Note DATE: 08/09/16 TIME: 14:20 Assessment/Plan VTE Prophylaxis VTE Prophylaxis Intervention: SCD's Lines/Catheters IV [facility]ter Type (from [facility] Urinary Cath still in place: No Assessment/Plan Chief Complaint/Hosp Course ASSESSMENT AND PLAN: 1. Diastolic acute on chronic congestive heart failure exacerbation. Continue Lasix IV. Dr. Cota is following patient. Cardiology consultation. Continue to monitor electrolytes. 2. Hypertension. Continue Toprol. 3. Hyperkalemia, resolved. 4. Bilateral lower extremity edema secondary to change in CHF. Bilateral lower extremities ultrasound is negative for deep venous thrombosis. 5. Diabetes mellitus type 2. Continue patient's home regimen. Dr. Bartholomew is following in endocrinology consultation. 6. Acute on chronic kidney disease. Continue to monitor BUN and creatinine. 7. Rule out acute coronary syndrome, status post stress test. 8. Hyperlipidemia. Continue statin. 9. Morbid obesity with BMI 50. Continue Lovenox for deep venous thrombosis prophylaxis and Pepcid for peptic ulcer disease prophylaxis. Further recommendations based on clinical course. Plan of care discussed with Dr. Garza. Problems: Subjective 24 Hr Interval Summary Free Text/Dictation Patient is lethargic but easily arousable, denies any shortness of breath. Exam/Review of Systems Vital Signs Vitals Vital Signs Date Time Temp Pulse Resp B/P Pulse Ox O2 Delivery O2 Flow Rate FiO2 08/09/16 12:00 57 08/09/16 11:31 97.6 20 113/58 98 08/08/16 20:20 Nasal Cannula 2.0 Intake and Output 08/08/16 08/08/16 08/09/16 15:00 23:00 07:00 Intake Total 880 ml 500 ml Output Total 1200 ml 1000 ml Balance -320 ml -500 ml Exam GENERAL: This is a well-developed, obese female currently is lethargic but easily arousable. HEENT: Head is atraumatic, normocephalic. Pupils equal, round, reactive to light and accommodation. Oral mucosa is pink and moist. NECK: Supple. JVD present. No cervical lymphadenopathy noted. No thyromegaly. LUNGS: Slightly diminished at the bases. Clear in the upper lobes. CARDIOVASCULAR: Normal S1, S2. No murmurs, gallops, clicks, rubs noted. ABDOMEN: Protuberant, soft, nondistended, nontender. Bowel sounds present. There is no guarding, no rebound tenderness. EXTREMITIES: Bilateral lower extremities edema at 2+. Pulses equal bilaterally 2+. SKIN: There is no rash, petechiae noted. NEUROLOGIC: The patient is awake, alert and oriented x3, no focal deficits noted. Results Result Diagram: 08/09/16 0712 08/09/16 0712 Results 24 hrs Laboratory Tests Test 08/08/16 17:07 08/08/16 20:19 08/09/16 07:12 08/09/16 08:18 Bedside Glucose 278 H 149 142 White Blood Count 11.1 H Red Blood Count 5.01 Hemoglobin 11.9 L Hematocrit 40.3 Mean Corpuscular Volume 80.4 L Mean Corpuscular Hemoglobin 23.8 L Mean Corpuscular Hemoglobin Concent 29.5 L Red Cell Distribution Width 20.1 H Platelet Count 394 Mean Platelet Volume 8.5 Neutrophils % 77.0 Lymphocytes % 12.4 L Monocytes % 6.6 Eosinophils % 3.2 Basophils % 0.3 Nucleated Red Blood Cells % 0.0 Neutrophils # 8.6 H Lymphocytes # 1.4 Monocytes # 0.7 Eosinophils # 0.4 Basophils # 0.0 Nucleated Red Blood Cells # 0.0 Sodium Level 142 Potassium Level 3.6 Chloride Level 94 L Carbon Dioxide Level 32 H Anion Gap 20 H Blood Urea Nitrogen 45 H Creatinine 1.34 H Glucose Level 133 # Calcium Level 9.0 Test 08/09/16 09:56 08/09/16 11:59 Bedside Glucose 230 H 124 Medications Medications Current Medications Ondansetron HCl (Zofran Inj) 4 mg Q6H PRN IV NAUSEA AND/OR VOMITING; Start at 20:30 Morphine Sulfate (morphine) 2 mg Q4H PRN IV PAIN LEVEL 7-10; Start 08/06/16 at 20:30 Enoxaparin Sodium (Lovenox) 30 mg DAILY SC Last administered on 08/09/16 08:21 ; Admin Dose 30 MG; Start 08/07/16 at 09:00 Furosemide (Lasix) 20 mg BID@06,18 IV Last administered on 08/09/16 06:12; Admin Dose 20 MG; Start 08/07/16 at 06:00 Miscellaneous Information 1 ea NOTE XX ; Start 08/06/16 at 20:30 Diagnostic Test (Pha) (Accu-Chek) 1 ea 02 XX Last administered on 08/08/16 02: 15; Admin Dose 1 EA; Start 08/07/16 at 02:00 Miscellaneous Information 1 ea NOTE XX ; Start 08/06/16 at 20:30 Glucose (Glutose) 15 gm Q15M PRN PO DECREASED GLUCOSE; Start 08/06/16 at 20:30 Glucose (Glutose) 22.5 gm Q15M PRN PO DECREASED GLUCOSE; Start 08/06/16 at 20: 30 Dextrose (D50w Syringe) 25 ml Q15M PRN IV DECREASED GLUCOSE; Start 08/06/16 at 20:30 Dextrose (D50w Syringe) 50 ml Q15M PRN IV DECREASED GLUCOSE; Start 08/06/16 at 20:30 Glucagon (Glucagen) 1 mg Q15M PRN IM DECREASED GLUCOSE; Start 08/06/16 at 20:30 Glucose (Glutose) 15 gm Q15M PRN BUCCAL DECREASED GLUCOSE; Start 08/06/16 at 20 :30 Aripiprazole (Abilify) 10 mg DAILY PO Last administered on 08/09/16 08:20; Admin Dose 10 MG; Start 08/08/16 at 09:00 Atorvastatin Calcium (Lipitor) 40 mg HS PO Last administered on 08/08/16 20:20 ; Admin Dose 40 MG; Start 08/07/16 at 21:00 Brimonidine Tartrate (Alphagan P 0.15%) 1 drop BID BOTH EYES Last administered on 08/09/16 08:19; Admin Dose 1 DROP; Start 08/07/16 at 21:00 Clopidogrel Bisulfate (plaVIX) 75 mg DAILY PO Last administered on 08/09/16 08 :19; Admin Dose 75 MG; Start 08/08/16 at 09:00 Isosorbide Mononitrate (Imdur) 60 mg DAILY PO Last administered on 08/09/16 08 :19; Admin Dose 60 MG; Start 08/08/16 at 09:00 Metoprolol Succinate (Toprol Xl) 100 mg DAILY PO Last administered on 08:20; Admin Dose 100 MG; Start 08/08/16 at 09:00 Sertraline HCl (Zoloft) 50 mg DAILY PO Last administered on 08/09/16 08:20; Admin Dose 50 MG; Start 08/08/16 at 09:00 Pantoprazole Sodium (Protonix) 20 mg BID@06,18 PO Last administered on 06:12; Admin Dose 20 MG; Start 08/07/16 at 18:00 Empaglifozin (Jardiance) 25 mg DAILY@08 PO Last administered on 08/09/16 08:20 ; Admin Dose 25 MG; Start 08/08/16 at 08:00 Linagliptin (Tradjenta) 5 mg DAILY@08 PO Last administered on 08/09/16 08:19; Admin Dose 5 MG; Start 08/08/16 at 08:00 Nitroglycerin (Nitroglycerin (Sl Tab) 0.4 Mg) 1 tab Q5M PRN SL ANGINA; Start at 20:00 Insulin Glargine (Lantus) 45 unit DAILY@08 SC Last administered on 08/09/16 08 :22; Admin Dose 45 UNIT; Start 08/09/16 at 08:00 Insulin Human NPH (Humulin N) 38 unit DAILY@20 SC Last administered on 20:22; Admin Dose 38 UNIT; Start 08/08/16 at 20:00 MADHU CAZARES August 09, 2016 14:25
--- NOTE | 2016-08-09 18:17 | CONS ---
Date/Time of Note Date/Time of Note DATE: 08/09/16 TIME: 18:14 Assessment/Plan Assessment/Plan Problems: (1) DM w/o complication type II, uncontrolled Status: Chronic Comment: Marked improvement in glucose levels. Now near hypoglycemic. Decrease Novolog w/ lunch from 25 to 22 units qam. Note pt. w/ A1c in my office of 8.7% on 07/18/2016. Control better here than as outpt. Consultation Date/Type/Reason Admit Date/Time August 06, 2016 at 19:45 Initial Consult Date 08/08/16 Type of Consultation: Endocrinology Reason for Consultation T2DM OOC Referring Provider: MADHU CAZARES 24 HR Interval Summary Constitutional: improved, no complaints, requiring O2 Detailed Summary Respiratory: no complaints (breathing better today) Cardiovascular: no complaints Gastrointestinal: no complaints Genitourinary: no complaints Musculoskeletal: no complaints Neurologic: no complaints Exam/Review of Systems Vital Signs Vitals VS - Last 72 Hours, by Label Date Time Temp Pulse Resp B/P Pulse Ox O2 Delivery O2 Flow Rate FiO2 08/09/16 16:00 62 08/09/16 15:35 98.2 64 20 143/64 97 08/09/16 12:00 57 08/09/16 11:31 97.6 60 20 113/58 98 08/09/16 08:19 64 08/09/16 07:45 98.1 67 20 108/52 99 08/09/16 04:33 64 08/09/16 04:19 98.5 66 19 137/76 98 08/09/16 00:42 64 08/08/16 23:56 97.6 67 20 133/67 98 08/08/16 20:20 Nasal Cannula 2.0 08/08/16 20:00 62 08/08/16 19:55 97.5 64 20 127/57 94 08/08/16 16:47 65 08/08/16 15:54 98.3 63 18 120/58 96 08/08/16 10:00 72 160/52 08/08/16 08:11 66 08/08/16 08:00 Nasal Cannula 2.0 08/08/16 07:48 98.5 71 18 180/76 97 08/08/16 04:15 62 08/08/16 04:03 98.1 74 19 156/60 96 08/08/16 00:31 86 08/07/16 23:41 98.1 70 17 143/65 95 08/07/16 20:15 Nasal Cannula 2.0 08/07/16 20:08 75 08/07/16 19:52 98.5 71 18 142/63 92 08/07/16 16:08 74 08/07/16 15:44 98.6 74 20 125/56 94 08/07/16 12:05 70 08/07/16 11:52 98.0 70 20 137/58 91 08/07/16 08:43 63 08/07/16 07:25 97.7 74 20 166/73 94 08/07/16 04:12 70 08/07/16 03:44 98.6 74 20 130/69 96 08/07/16 00:11 70 08/06/16 23:57 98.6 73 22 136/78 96 08/06/16 21:51 Nasal Cannula 2.0 08/06/16 20:10 68 08/06/16 20:00 98.2 69 20 150/84 93 08/06/16 18:40 97.4 68 24 165/97 98 8.0 Vital Signs Date Time Temp Pulse Resp B/P Pulse Ox O2 Delivery O2 Flow Rate FiO2 08/09/16 16:00 62 08/09/16 15:35 98.2 20 143/64 97 08/08/16 20:20 Nasal Cannula 2.0 Intake and Output 08/08/16 08/08/16 08/09/16 15:00 23:00 07:00 Intake Total 880 ml 500 ml Output Total 1200 ml 1000 ml Balance -320 ml -500 ml Exam Constitutional: alert, obese, oriented Psych: nl mood/affect, no complaints Respiratory: clear to auscultation, normal air movement Cardiovascular: nl pulses, regular rate and rhythm, No edema, No murmurs/extra sounds, No rub Gastrointestinal: bowel sounds, nl liver, spleen, non-tender, soft, No mass, No rebound or guarding Musculoskeletal: nl extremities to inspection Extremities: normal pulses, No clubbing, No cyanosis, No edema Neurological: ANESTHESIOLOGY TECHNOLOGIST II-XII intact, nl mental status, nl speech, nl strength Additional Comments Bedside Glucose - 72 Hours Test 08/06/16 22:15 08/07/16 07:51 08/07/16 08:32 08/07/16 11:48 Bedside Glucose 115mg/dL (70-220) 354mg/dL (70-220) H 348mg/dL (70-220) H 349mg/dL (70-220) H Test 08/07/16 17:02 08/07/16 20:22 08/08/16 02:18 08/08/16 07:56 Bedside Glucose 284mg/dL (70-220) H 380mg/dL (70-220) H 251mg/dL (70-220) H 310mg/dL (70-220) H Test 08/08/16 10:18 08/08/16 13:38 08/08/16 17:07 08/08/16 20:19 Bedside Glucose 269mg/dL (70-220) H 255mg/dL (70-220) H 278mg/dL (70-220) H 149mg/dL (70-220) Test 08/09/16 08:18 08/09/16 09:56 08/09/16 11:59 08/09/16 17:07 Bedside Glucose 142mg/dL (70-220) 230mg/dL (70-220) H 124mg/dL (70-220) 80mg/dL (70-220) Test 08/09/16 17:39 Bedside Glucose 104mg/dL (70-220) Results Result Diagram: 08/09/1612 08/09/1612 Results 24 hrs Laboratory Tests Test 08/08/16 20:19 08/09/16 07:12 08/09/16 08:18 08/09/16 09:56 Bedside Glucose 149 142 230 H White Blood Count 11.1 H Red Blood Count 5.01 Hemoglobin 11.9 L Hematocrit 40.3 Mean Corpuscular Volume 80.4 L Mean Corpuscular Hemoglobin 23.8 L Mean Corpuscular Hemoglobin Concent 29.5 L Red Cell Distribution Width 20.1 H Platelet Count 394 Mean Platelet Volume 8.5 Neutrophils % 77.0 Lymphocytes % 12.4 L Monocytes % 6.6 Eosinophils % 3.2 Basophils % 0.3 Nucleated Red Blood Cells % 0.0 Neutrophils # 8.6 H Lymphocytes # 1.4 Monocytes # 0.7 Eosinophils # 0.4 Basophils # 0.0 Nucleated Red Blood Cells # 0.0 Sodium Level 142 Potassium Level 3.6 Chloride Level 94 L Carbon Dioxide Level 32 H Anion Gap 20 H Blood Urea Nitrogen 45 H Creatinine 1.34 H Glucose Level 133 # Calcium Level 9.0 Test 08/09/16 11:59 08/09/16 17:07 08/09/16 17:39 Bedside Glucose 124 80 104 Medications Medications Current Medications Ondansetron HCl (Zofran Inj) 4 mg Q6H PRN IV NAUSEA AND/OR VOMITING; Start at 20:30 Morphine Sulfate (morphine) 2 mg Q4H PRN IV PAIN LEVEL 7-10; Start 08/06/16 at 20:30 Enoxaparin Sodium (Lovenox) 30 mg DAILY SC Last administered on 08/09/16 08:21 ; Admin Dose 30 MG; Start 08/07/16 at 09:00 Furosemide (Lasix) 20 mg BID@06,18 IV Last administered on 08/09/16 17:09; Admin Dose 20 MG; Start 08/07/16 at 06:00 Miscellaneous Information 1 ea NOTE XX ; Start 08/06/16 at 20:30 Diagnostic Test (Pha) (Accu-Chek) 1 ea 02 XX Last administered on 08/08/16 02: 15; Admin Dose 1 EA; Start 08/07/16 at 02:00 Miscellaneous Information 1 ea NOTE XX ; Start 08/06/16 at 20:30 Glucose (Glutose) 15 gm Q15M PRN PO DECREASED GLUCOSE; Start 08/06/16 at 20:30 Glucose (Glutose) 22.5 gm Q15M PRN PO DECREASED GLUCOSE; Start 08/06/16 at 20: 30 Dextrose (D50w Syringe) 25 ml Q15M PRN IV DECREASED GLUCOSE; Start 08/06/16 at 20:30 Dextrose (D50w Syringe) 50 ml Q15M PRN IV DECREASED GLUCOSE; Start 08/06/16 at 20:30 Glucagon (Glucagen) 1 mg Q15M PRN IM DECREASED GLUCOSE; Start 08/06/16 at 20:30 Glucose (Glutose) 15 gm Q15M PRN BUCCAL DECREASED GLUCOSE; Start 08/06/16 at 20 :30 Aripiprazole (Abilify) 10 mg DAILY PO Last administered on 08/09/16 08:20; Admin Dose 10 MG; Start 08/08/16 at 09:00 Atorvastatin Calcium (Lipitor) 40 mg HS PO Last administered on 08/08/16 20:20 ; Admin Dose 40 MG; Start 08/07/16 at 21:00 Brimonidine Tartrate (Alphagan P 0.15%) 1 drop BID BOTH EYES Last administered on 08/09/16 08:19; Admin Dose 1 DROP; Start 08/07/16 at 21:00 Clopidogrel Bisulfate (plaVIX) 75 mg DAILY PO Last administered on 08/09/16 08 :19; Admin Dose 75 MG; Start 08/08/16 at 09:00 Isosorbide Mononitrate (Imdur) 60 mg DAILY PO Last administered on 08/09/16 08 :19; Admin Dose 60 MG; Start 08/08/16 at 09:00 Metoprolol Succinate (Toprol Xl) 100 mg DAILY PO Last administered on 08:20; Admin Dose 100 MG; Start 08/08/16 at 09:00 Sertraline HCl (Zoloft) 50 mg DAILY PO Last administered on 08/09/16 08:20; Admin Dose 50 MG; Start 08/08/16 at 09:00 Pantoprazole Sodium (Protonix) 20 mg BID@06,18 PO Last administered on 17:08; Admin Dose 20 MG; Start 08/07/16 at 18:00 Empaglifozin (Jardiance) 25 mg DAILY@08 PO Last administered on 08/09/16 08:20 ; Admin Dose 25 MG; Start 08/08/16 at 08:00 Linagliptin (Tradjenta) 5 mg DAILY@08 PO Last administered on 08/09/16 08:19; Admin Dose 5 MG; Start 08/08/16 at 08:00 Nitroglycerin (Nitroglycerin (Sl Tab) 0.4 Mg) 1 tab Q5M PRN SL ANGINA; Start at 20:00 Insulin Glargine (Lantus) 45 unit DAILY@08 SC Last administered on 08/09/16 08 :22; Admin Dose 45 UNIT; Start 08/09/16 at 08:00 Insulin Human NPH (Humulin N) 38 unit DAILY@20 SC Last administered on 20:22; Admin Dose 38 UNIT; Start 08/08/16 at 20:00 TONY KELLY MD August 09, 2016 18:17
--- NOTE | 2016-08-09 19:34 | CONS ---
Date/Time of Note Date/Time of Note DATE: 08/09/16 TIME: 19:29 Assessment/Plan Assessment/Plan Chief Complaint/Hosp Course IMPRESSION: 1. Shortness of breath, assess for congestive heart failure. 2. Elevated BNP, assess for congestive heart failure. 3. Chest pain, assess for acute coronary syndrome.-negative trop x 3/No ischemia by lexiscan 4. Abnormal electrocardiogram. Assess for acute coronary syndrome. 5. Hypertensive urgency, emergency. Currently improved on oral antihypertensives. 6. Diabetes mellitus, uncontrolled blood sugars. 7. Anemia. 8. Leukocytosis. 9. Psych disorder. Recc: -Tele -serial ecg's -Continue Toprol -continue imdur -continue lasix diuresis -continue plavix Problems: Consultation Date/Type/Reason Admit Date/Time August 06, 2016 at 19:45 Initial Consult Date 08/08/16 Type of Consultation: Cardiology Reason for Consultation sob Referring Provider: MADHU CAZARES Exam/Review of Systems Vital Signs Vitals Vital Signs Date Time Temp Pulse Resp B/P Pulse Ox O2 Delivery O2 Flow Rate FiO2 08/09/16 16:00 62 08/09/16 15:35 98.2 20 143/64 97 08/08/16 20:20 Nasal Cannula 2.0 Intake and Output 08/08/16 08/08/16 08/09/16 15:00 23:00 07:00 Intake Total 880 ml 500 ml Output Total 1200 ml 1000 ml Balance -320 ml -500 ml Exam Review of Systems: CONSTITUTIONAL: No fevers, chills. PULMONARY: mild sob-improving CARDIOVASCULAR: No chest pain/palpitations GASTROINTESTINAL: No nausea/vomiting. GENITOURINARY: No hematuria/dysuria. MUSCULOSKELETAL: No myagias/arthalgias. PSYCHIATRIC: The patient denies depression. NEUROLOGIC: No weakness Constitutional: alert Psych: no complaints Head: normocephalic ENMT: mucosa pink and moist Neck: jvd (9 cm water), supple Respiratory: diminished breath sounds (at bases/B) Cardiovascular: regular rate and rhythm Gastrointestinal: non-tender, soft Musculoskeletal: muscle tone (normal) Extremities: edema (none) Neurological: other (NO focal deficits) Results Result Diagram: 08/09/16 0712 08/09/16 0712 Results 24 hrs Laboratory Tests Test 08/08/16 20:19 08/09/16 07:12 08/09/16 08:18 08/09/16 09:56 Bedside Glucose 149 142 230 H White Blood Count 11.1 H Red Blood Count 5.01 Hemoglobin 11.9 L Hematocrit 40.3 Mean Corpuscular Volume 80.4 L Mean Corpuscular Hemoglobin 23.8 L Mean Corpuscular Hemoglobin Concent 29.5 L Red Cell Distribution Width 20.1 H Platelet Count 394 Mean Platelet Volume 8.5 Neutrophils % 77.0 Lymphocytes % 12.4 L Monocytes % 6.6 Eosinophils % 3.2 Basophils % 0.3 Nucleated Red Blood Cells % 0.0 Neutrophils # 8.6 H Lymphocytes # 1.4 Monocytes # 0.7 Eosinophils # 0.4 Basophils # 0.0 Nucleated Red Blood Cells # 0.0 Sodium Level 142 Potassium Level 3.6 Chloride Level 94 L Carbon Dioxide Level 32 H Anion Gap 20 H Blood Urea Nitrogen 45 H Creatinine 1.34 H Glucose Level 133 # Calcium Level 9.0 Test 08/09/16 11:59 08/09/16 17:07 08/09/16 17:39 Bedside Glucose 124 80 104 Medications Medications Current Medications Ondansetron HCl (Zofran Inj) 4 mg Q6H PRN IV NAUSEA AND/OR VOMITING; Start at 20:30 Morphine Sulfate (morphine) 2 mg Q4H PRN IV PAIN LEVEL 7-10; Start 08/06/16 at 20:30 Enoxaparin Sodium (Lovenox) 30 mg DAILY SC Last administered on 08/09/16 08:21 ; Admin Dose 30 MG; Start 08/07/16 at 09:00 Furosemide (Lasix) 20 mg BID@,18 IV Last administered on 08/09/16 17:09; Admin Dose 20 MG; Start 08/07/16 at 06:00 Miscellaneous Information 1 ea NOTE XX ; Start 08/06/16 at 20:30 Diagnostic Test (Pha) (Accu-Chek) 1 ea 02 XX Last administered on 08/08/16 02: 15; Admin Dose 1 EA; Start 08/07/16 at 02:00 Miscellaneous Information 1 ea NOTE XX ; Start 08/06/16 at 20:30 Glucose (Glutose) 15 gm Q15M PRN PO DECREASED GLUCOSE; Start 08/06/16 at 20:30 Glucose (Glutose) 22.5 gm Q15M PRN PO DECREASED GLUCOSE; Start 08/06/16 at 20: 30 Dextrose (D50w Syringe) 25 ml Q15M PRN IV DECREASED GLUCOSE; Start 08/06/16 at 20:30 Dextrose (D50w Syringe) 50 ml Q15M PRN IV DECREASED GLUCOSE; Start 08/06/16 at 20:30 Glucagon (Glucagen) 1 mg Q15M PRN IM DECREASED GLUCOSE; Start 08/06/16 at 20:30 Glucose (Glutose) 15 gm Q15M PRN BUCCAL DECREASED GLUCOSE; Start 08/06/16 at 20 :30 Aripiprazole (Abilify) 10 mg DAILY PO Last administered on 08/09/16 08:20; Admin Dose 10 MG; Start 08/08/16 at 09:00 Atorvastatin Calcium (Lipitor) 40 mg HS PO Last administered on 08/08/16 20:20 ; Admin Dose 40 MG; Start 08/07/16 at 21:00 Brimonidine Tartrate (Alphagan P 0.15%) 1 drop BID BOTH EYES Last administered on 08/09/16 08:19; Admin Dose 1 DROP; Start 08/07/16 at 21:00 Clopidogrel Bisulfate (plaVIX) 75 mg DAILY PO Last administered on 08/09/16 08 :19; Admin Dose 75 MG; Start 08/08/16 at 09:00 Isosorbide Mononitrate (Imdur) 60 mg DAILY PO Last administered on 08/09/16 08 :19; Admin Dose 60 MG; Start 08/08/16 at 09:00 Metoprolol Succinate (Toprol Xl) 100 mg DAILY PO Last administered on 08:20; Admin Dose 100 MG; Start 08/08/16 at 09:00 Sertraline HCl (Zoloft) 50 mg DAILY PO Last administered on 08/09/16 08:20; Admin Dose 50 MG; Start 08/08/16 at 09:00 Pantoprazole Sodium (Protonix) 20 mg BID@06,18 PO Last administered on 17:08; Admin Dose 20 MG; Start 08/07/16 at 18:00 Empaglifozin (Jardiance) 25 mg DAILY@08 PO Last administered on 08/09/16 08:20 ; Admin Dose 25 MG; Start 08/08/16 at 08:00 Linagliptin (Tradjenta) 5 mg DAILY@08 PO Last administered on 08/09/16 08:19; Admin Dose 5 MG; Start 08/08/16 at 08:00 Nitroglycerin (Nitroglycerin (Sl Tab) 0.4 Mg) 1 tab Q5M PRN SL ANGINA; Start at 20:00 Insulin Glargine (Lantus) 45 unit DAILY@08 SC Last administered on 08/09/16 08 :22; Admin Dose 45 UNIT; Start 08/09/16 at 08:00 Insulin Human NPH (Humulin N) 38 unit DAILY@20 SC Last administered on 20:22; Admin Dose 38 UNIT; Start 08/08/16 at 20:00 TERRIE DUNN August 09, 2016 19:34
[2016-08-09] MEDS: NPH, HUMAN INSULIN ISOPHANE 3ML VIAL SC SCH (20:24)
[2016-08-09] MEDS: ATORVASTATIN 40 MG TAB PO SCH (20:26)
--- NOTE | 2016-08-09 20:34 | RADRPT ---
Vent Rate: 70 bpm RR Interval: 0 msec [place] Interval: 150 msec QRS Duration: 80 msec QT Interval: 390 msec QTC Interval: 421 msec P-R-T [place]: 55 - 88 - 29 degrees Normal sinus rhythm Normal ECG Electronically Signed By: Jimbo Cota [id number]
[2016-08-10] VITALS (10 sets, daily range): BP systolic 105–138; BP diastolic 54–63; PULSE 62–72; RESP 18–20
[2016-08-10] MEDS: ACCUCHECK AT 2AM (Patients on SS coverage) XX SCH (02:00)
[2016-08-10] MEDS: PANTOPRAZOLE SODIUM 20 MG TABEC PO SCH ×2 (05:42→17:06)
[2016-08-10] MEDS: FUROSEMIDE 20 MG INJ IV SCH ×2 (05:42→17:06)
[2016-08-10 07:35] LABS: ADD SCAN DIFF NO
[2016-08-10] MEDS: [UNRECOGNIZED DRUG - OTHER] SC SCH ×3 (07:40→16:33)
[2016-08-10 07:41] LABS: BASOPHILS % 0.3 % (0.0-2.0); EOSINOPHILS # 0.3 10^3/ul (0.0-0.5); EOSINOPHILS % 2.9 % (0.0-7.0); HEMATOCRIT 41.3 % (37.0-47.0); LYMPHOCYTES # 1.3 10^3/ul (0.8-2.9); LYMPHOCYTES % 11.1 % (15.0-51.0); MEAN CORPUSCULAR HEMOGLOBIN 23.6 pg (29.0-33.0); MEAN CORPUSCULAR HGB CONC 29.1 g/dl (32.0-37.0); MEAN CORPUSCULAR VOLUME 81.3 fl (82.0-101.0); MEAN PLATELET VOLUME 8.5 fl (7.4-10.4); MONOCYTE # 0.6 10^3/ul (0.3-0.9); MONOCYTES % 5.6 % (0.0-11.0); NEUTROPHIL # 9.1 10^3/ul (1.6-7.5); NEUTROPHILS % 79.6 % (39.0-77.0); PLATELET COUNT 362 10^3/UL (140-415); RED BLOOD COUNT 5.08 10^6/ul (4.20-5.40); RED CELL DISTRIBUTION WIDTH 20.4 % (11.5-14.5); WHITE BLOOD COUNT 11.5 10^3/ul (4.8-10.8)
[2016-08-10] MEDS: INSULIN ASPART [NOVOLOG] 3 ML PEN SC SCH ×7 (07:51→20:20)
[2016-08-10] MEDS: LINAGLIPTIN 5 MG TABLET PO SCH (07:59)
[2016-08-10] MEDS: EMPAGLIFLOZIN 10 MG TABLET PO SCH (07:59)
[2016-08-10] MEDS: INSULIN GLARGINE [LANtus] 3 ML PEN SC SCH (08:00)
[2016-08-10] MEDS: ENOXAPARIN 30 MG/0.3 ML SYG SC SCH (08:01)
[2016-08-10] MEDS: METOPROLOL (XL) 100 MG TAB PO SCH (08:02)
[2016-08-10] MEDS: ISOSORBIDE MONONITRATE(SR)60 MG TAB PO SCH (08:02)
[2016-08-10] MEDS: CLOPIDOGREL 75 MG TAB PO SCH (08:02)
[2016-08-10] MEDS: ARIPIPRAZOLE 10 MG TAB PO SCH (08:02)
[2016-08-10] MEDS: BRIMONIDINE 0.15% 5 ML OPH BOTH EYES SCH ×2 (08:02→20:20)
[2016-08-10] MEDS: SERTRALINE 50 MG TAB PO SCH (08:02)
[2016-08-10 08:04] LABS: POTASSIUM 4.1 mmol/L (3.5-5.1)
[2016-08-10 08:06] LABS: CREATININE 1.32 mg/dl (0.44-1.00)
[2016-08-10 08:07] LABS: CALCIUM 9.1 mg/dl (8.4-10.2)
--- NOTE | 2016-08-10 11:14 | CONS ---
Date/Time of Note Date/Time of Note DATE: 08/10/16 TIME: 11:12 Assessment/Plan Assessment/Plan Additional Assessment/Plan Assessment recommendations; 1. Patient admitted for shortness of breath due to mild CHF from diastolic dysfunction with significant clinical improvement. 2. Negative SPECT cardiac stress test. 3. Hypertension. 4. Diabetes. 5. Morbid obesity. 6. Likely underlying sleep apnea. Obtain ambulatory pulse oximetry on room air to assess for exertional hypoxemia. The patient may qualify for home O2 if the O2 saturation is below 88 %. Patient also will need to have a sleep study done on outpatient basis. Consultation Date/Type/Reason Admit Date/Time August 06, 2016 at 19:45 Initial Consult Date 08/08/16 Type of Consultation: Pulmonary Referring Provider: MADHU CAZARES 24 HR Interval Summary Free Text/Dictation Patient condition is stable. Remains awake alert. Currently sitting on bed. Denies any shortness of breath, chest pain, abdominal pain. General exam; elderly woman, appears quite overweight, awake and alert, currently in no distress. Exam/Review of Systems Vital Signs Vitals Vital Signs Date Time Temp Pulse Resp B/P Pulse Ox O2 Delivery O2 Flow Rate FiO2 08/10/16 08:13 66 08/10/16 07:37 97.9 20 125/58 99 08/09/16 20:00 Nasal Cannula 2.0 Intake and Output 08/09/16 08/09/16 08/10/16 15:00 23:00 07:00 Intake Total 1200 ml 400 ml Output Total 1700 ml 1200 ml Balance -500 ml -800 ml Exam HEENT exam is; supple neck, JVD difficult to see because of short neck. Patient is edentulous. Pupils are midsize reactive to light. No neck masses, no thyromegaly. Chest examination; clear to auscultation. S1-S2 audible, no murmurs. Regular rhythm. Abdomen examination; nontender. Protuberant. Bowel sounds audible. Extremity examination; no peripheral edema. Pulses 1+ bilaterally. MEN'S [employer]OTH[employer] SALESPERSON examination; no focal deficit. Results Result Diagram: 08/10/16 0704 08/10/16 0704 Results 24 hrs Laboratory Tests Test 08/09/16 11:59 08/09/16 17:07 08/09/16 17:39 08/09/16 20:22 Bedside Glucose 124 80 104 105 Test 08/10/16 02:03 08/10/16 07:04 08/10/16 07:42 Bedside Glucose 118 128 White Blood Count 11.5 H Red Blood Count 5.08 Hemoglobin 12.0 Hematocrit 41.3 Mean Corpuscular Volume 81.3 L Mean Corpuscular Hemoglobin 23.6 L Mean Corpuscular Hemoglobin Concent 29.1 L Red Cell Distribution Width 20.4 H Platelet Count 362 Mean Platelet Volume 8.5 Neutrophils % 79.6 H Lymphocytes % 11.1 L Monocytes % 5.6 Eosinophils % 2.9 Basophils % 0.3 Nucleated Red Blood Cells % 0.0 Neutrophils # 9.1 H Lymphocytes # 1.3 Monocytes # 0.6 Eosinophils # 0.3 Basophils # 0.0 Nucleated Red Blood Cells # 0.0 Sodium Level 141 Potassium Level 4.1 Chloride Level 92 L Carbon Dioxide Level 35 H Anion Gap 18 H Blood Urea Nitrogen 47 H Creatinine 1.32 H Glucose Level 118 Calcium Level 9.1 Medications Medications Current Medications Ondansetron HCl (Zofran Inj) 4 mg Q6H PRN IV NAUSEA AND/OR VOMITING; Start at 20:30 Morphine Sulfate (morphine) 2 mg Q4H PRN IV PAIN LEVEL 7-10; Start 08/06/16 at 20:30 Enoxaparin Sodium (Lovenox) 30 mg DAILY SC Last administered on 08/10/16 08:01 ; Admin Dose 30 MG; Start 08/07/16 at 09:00 Furosemide (Lasix) 20 mg BID@06,18 IV Last administered on 08/10/16 05:42; Admin Dose 20 MG; Start 08/07/16 at 06:00 Miscellaneous Information 1 ea NOTE XX ; Start 08/06/16 at 20:30 Diagnostic Test (Pha) (Accu-Chek) 1 ea 02 XX Last administered on 08/08/16 02: 15; Admin Dose 1 EA; Start 08/07/16 at 02:00 Miscellaneous Information 1 ea NOTE XX ; Start 08/06/16 at 20:30 Glucose (Glutose) 15 gm Q15M PRN PO DECREASED GLUCOSE; Start 08/06/16 at 20:30 Glucose (Glutose) 22.5 gm Q15M PRN PO DECREASED GLUCOSE; Start 08/06/16 at 20: 30 Dextrose (D50w Syringe) 25 ml Q15M PRN IV DECREASED GLUCOSE; Start 08/06/16 at 20:30 Dextrose (D50w Syringe) 50 ml Q15M PRN IV DECREASED GLUCOSE; Start 08/06/16 at 20:30 Glucagon (Glucagen) 1 mg Q15M PRN IM DECREASED GLUCOSE; Start 08/06/16 at 20:30 Glucose (Glutose) 15 gm Q15M PRN BUCCAL DECREASED GLUCOSE; Start 08/06/16 at 20 :30 Aripiprazole (Abilify) 10 mg DAILY PO Last administered on 08/10/16 08:02; Admin Dose 10 MG; Start 08/08/16 at 09:00 Atorvastatin Calcium (Lipitor) 40 mg HS PO Last administered on 08/09/16 20:26 ; Admin Dose 40 MG; Start 08/07/16 at 21:00 Brimonidine Tartrate (Alphagan P 0.15%) 1 drop BID BOTH EYES Last administered on 08/10/16 08:02; Admin Dose 1 DROP; Start 08/07/16 at 21:00 Clopidogrel Bisulfate (plaVIX) 75 mg DAILY PO Last administered on 08/10/16 08 :02; Admin Dose 75 MG; Start 08/08/16 at 09:00 Isosorbide Mononitrate (Imdur) 60 mg DAILY PO Last administered on 08/10/16 08 :02; Admin Dose 60 MG; Start 08/08/16 at 09:00 Metoprolol Succinate (Toprol Xl) 100 mg DAILY PO Last administered on 08:02; Admin Dose 100 MG; Start 08/08/16 at 09:00 Sertraline HCl (Zoloft) 50 mg DAILY PO Last administered on 08/10/16 08:02; Admin Dose 50 MG; Start 08/08/16 at 09:00 Pantoprazole Sodium (Protonix) 20 mg BID@,18 PO Last administered on 05:42; Admin Dose 20 MG; Start 08/07/16 at 18:00 Empaglifozin (Jardiance) 25 mg DAILY@08 PO Last administered on 08/10/16 07:59 ; Admin Dose 25 MG; Start 08/08/16 at 08:00 Linagliptin (Tradjenta) 5 mg DAILY@08 PO Last administered on 08/10/16 07:59; Admin Dose 5 MG; Start 08/08/16 at 08:00 Nitroglycerin (Nitroglycerin (Sl Tab) 0.4 Mg) 1 tab Q5M PRN SL ANGINA; Start at 20:00 Insulin Glargine (Lantus) 45 unit DAILY@08 SC Last administered on 08/10/16 08 :00; Admin Dose 45 UNIT; Start 08/09/16 at 08:00 Insulin Human NPH (Humulin N) 38 unit DAILY@20 SC Last administered on 20:24; Admin Dose 38 UNIT; Start 08/08/16 at 20:00 MIGUEL RIVERA August 10, 2016 11:14
--- NOTE | 2016-08-10 16:51 | PN ---
Date/Time of Note Date/Time of Note DATE: 08/10/16 TIME: 16:46 Assessment/Plan VTE Prophylaxis VTE Prophylaxis Intervention: other Lines/Catheters IV [facility] Type [facility] Sal[facility] Urinary Cath still in place: No Assessment/Plan Assessment/Plan 1. Diastolic acute on chronic congestive heart failure exacerbation. Continue Lasix IV. - per Dr. Cota is following patient. Cardiology consultation. Continue to monitor electrolytes. 2. Hypertension. Continue Toprol. 3. Hyperkalemia, resolved. 4. Bilateral lower extremity edema secondary to change in CHF. Bilateral lower extremities ultrasound is negative for deep venous thrombosis. 5. Diabetes mellitus type 2. Continue patient's home regimen. - per Dr. Bartholomew in endocrinology consultation. 6. Acute on chronic kidney disease. Continue to monitor BUN and creatinine. 7. Rule out acute coronary syndrome, status post stress test. 8. Hyperlipidemia. Continue statin. 9. Morbid obesity with BMI 50. - dietary consult - weight managment Continue Lovenox for deep venous thrombosis prophylaxis and Pepcid for peptic ulcer disease prophylaxis. Further recommendations based on clinical course. Plan of care discussed with Dr. Garza. Subjective 24 Hr Interval Summary Free Text/Dictation Patient is sitting up in chair, remains on O2 NC , talking over phone to her daughter, Dw daughter- all Qs answered. dw staff- no new issues reported. Constitutional: requiring IVF Eyes: no complaints ENT: no complaints Respiratory: shortness of breath Cardiovascular: no complaints Gastrointestinal: no complaints Genitourinary: no complaints Musculoskeletal: no complaints Skin: no complaints Neurologic: no complaints Endocrine: no complaints Lymphatic: no complaints Psychological: no complaints Immunologic: no complaints Exam/Review of Systems Vital Signs Vitals Vital Signs Date Time Temp Pulse Resp B/P Pulse Ox O2 Delivery O2 Flow Rate FiO2 08/10/16 16:23 65 08/10/16 15:43 98.2 20 135/61 98 08/09/16 20:00 Nasal Cannula 2.0 Intake and Output 08/09/16 08/09/16 08/10/16 15:00 23:00 07:00 Intake Total 1200 ml 400 ml Output Total 1700 ml 1200 ml Balance -500 ml -800 ml Exam Constitutional: obese Psych: nl mood/affect Eyes: nl sclera ENMT: nl external ears & nose Neck: non-tender Respiratory: diminished breath sounds (bilateral at bases) Cardiovascular: nl pulses Gastrointestinal: non-tender, soft Musculoskeletal: nl extremities to inspection Extremities: normal pulses Neurological: nl mental status, nl speech Skin: other Lymph: nontender Results Result Diagram: 08/10/1604 08/10/16 0704 Results 24 hrs Laboratory Tests Test 08/09/16 17:07 08/09/16 17:39 08/09/16 20:22 08/10/16 02:03 Bedside Glucose 80 104 105 118 Test 08/10/16 07:04 08/10/16 07:42 08/10/16 11:42 White Blood Count 11.5 H Red Blood Count 5.08 Hemoglobin 12.0 Hematocrit 41.3 Mean Corpuscular Volume 81.3 L Mean Corpuscular Hemoglobin 23.6 L Mean Corpuscular Hemoglobin Concent 29.1 L Red Cell Distribution Width 20.4 H Platelet Count 362 Mean Platelet Volume 8.5 Neutrophils % 79.6 H Lymphocytes % 11.1 L Monocytes % 5.6 Eosinophils % 2.9 Basophils % 0.3 Nucleated Red Blood Cells % 0.0 Neutrophils # 9.1 H Lymphocytes # 1.3 Monocytes # 0.6 Eosinophils # 0.3 Basophils # 0.0 Nucleated Red Blood Cells # 0.0 Sodium Level 141 Potassium Level 4.1 Chloride Level 92 L Carbon Dioxide Level 35 H Anion Gap 18 H Blood Urea Nitrogen 47 H Creatinine 1.32 H Glucose Level 118 Calcium Level 9.1 Bedside Glucose 128 159 Medications Medications Current Medications Ondansetron HCl (Zofran Inj) 4 mg Q6H PRN IV NAUSEA AND/OR VOMITING; Start at 20:30 Morphine Sulfate (morphine) 2 mg Q4H PRN IV PAIN LEVEL 7-10; Start 08/06/16 at 20:30 Enoxaparin Sodium (Lovenox) 30 mg DAILY SC Last administered on 08/10/16 08:01 ; Admin Dose 30 MG; Start 08/07/16 at 09:00 Furosemide (Lasix) 20 mg BID@18 IV Last administered on 08/10/16 05:42; Admin Dose 20 MG; Start 08/07/16 at 06:00 Miscellaneous Information 1 ea NOTE XX ; Start 08/06/16 at 20:30 Diagnostic Test (Pha) (Accu-Chek) 1 ea 02 XX Last administered on 08/08/16 02: 15; Admin Dose 1 EA; Start 08/07/16 at 02:00 Miscellaneous Information 1 ea NOTE XX ; Start 08/06/16 at 20:30 Glucose (Glutose) 15 gm Q15M PRN PO DECREASED GLUCOSE; Start 08/06/16 at 20:30 Glucose (Glutose) 22.5 gm Q15M PRN PO DECREASED GLUCOSE; Start 08/06/16 at 20: 30 Dextrose (D50w Syringe) 25 ml Q15M PRN IV DECREASED GLUCOSE; Start 08/06/16 at 20:30 Dextrose (D50w Syringe) 50 ml Q15M PRN IV DECREASED GLUCOSE; Start 08/06/16 at 20:30 Glucagon (Glucagen) 1 mg Q15M PRN IM DECREASED GLUCOSE; Start 08/06/16 at 20:30 Glucose (Glutose) 15 gm Q15M PRN BUCCAL DECREASED GLUCOSE; Start 08/06/16 at 20 :30 Aripiprazole (Abilify) 10 mg DAILY PO Last administered on 08/10/16 08:02; Admin Dose 10 MG; Start 08/08/16 at 09:00 Atorvastatin Calcium (Lipitor) 40 mg HS PO Last administered on 08/09/16 20:26 ; Admin Dose 40 MG; Start 08/07/16 at 21:00 Brimonidine Tartrate (Alphagan P 0.15%) 1 drop BID BOTH EYES Last administered on 08/10/16 08:02; Admin Dose 1 DROP; Start 08/07/16 at 21:00 Clopidogrel Bisulfate (plaVIX) 75 mg DAILY PO Last administered on 08/10/16 08 :02; Admin Dose 75 MG; Start 08/08/16 at 09:00 Isosorbide Mononitrate (Imdur) 60 mg DAILY PO Last administered on 08/10/16 08 :02; Admin Dose 60 MG; Start 08/08/16 at 09:00 Metoprolol Succinate (Toprol Xl) 100 mg DAILY PO Last administered on 08:02; Admin Dose 100 MG; Start 08/08/16 at 09:00 Sertraline HCl (Zoloft) 50 mg DAILY PO Last administered on 08/10/16 08:02; Admin Dose 50 MG; Start 08/08/16 at 09:00 Pantoprazole Sodium (Protonix) 20 mg BID@06,18 PO Last administered on 05:42; Admin Dose 20 MG; Start 08/07/16 at 18:00 Empaglifozin (Jardiance) 25 mg DAILY@08 PO Last administered on 08/10/16 07:59 ; Admin Dose 25 MG; Start 08/08/16 at 08:00 Linagliptin (Tradjenta) 5 mg DAILY@08 PO Last administered on 08/10/16 07:59; Admin Dose 5 MG; Start 08/08/16 at 08:00 Nitroglycerin (Nitroglycerin (Sl Tab) 0.4 Mg) 1 tab Q5M PRN SL ANGINA; Start at 20:00 Insulin Glargine (Lantus) 45 unit DAILY@08 SC Last administered on 08/10/16 08 :00; Admin Dose 45 UNIT; Start 08/09/16 at 08:00 Insulin Human NPH (Humulin N) 38 unit DAILY@20 SC Last administered on 20:24; Admin Dose 38 UNIT; Start 08/08/16 at 20:00 ENRRIQUE AGUILAR August 10, 2016 16:51
--- NOTE | 2016-08-10 17:13 | CONS ---
Date/Time of Note Date/Time of Note DATE: 08/10/16 TIME: 17:11 Assessment/Plan Assessment/Plan Problems: (1) DM w/o complication type II, uncontrolled Status: Chronic Comment: Marked improvement in glycemic control. Cont. current regimen Consultation Date/Type/Reason Admit Date/Time August 06, 2016 at 19:45 Initial Consult Date 08/08/16 Type of Consultation: Endocrinology Reason for Consultation T2DM OOC Referring Provider: MADHU CAZARES 24 HR Interval Summary Constitutional: improved, no complaints, requiring O2 Detailed Summary Respiratory: no complaints (breathing better) Cardiovascular: no complaints Gastrointestinal: no complaints Genitourinary: no complaints Musculoskeletal: no complaints Neurologic: no complaints Exam/Review of Systems Vital Signs Vitals VS - Last 72 Hours, by Label Date Time Temp Pulse Resp B/P Pulse Ox O2 Delivery O2 Flow Rate FiO2 08/10/16 16:23 65 08/10/16 15:43 98.2 71 20 135/61 98 08/10/16 12:36 62 08/10/16 11:28 97.9 65 20 105/54 97 08/10/16 08:13 66 08/10/16 07:37 97.9 64 20 125/58 99 08/10/16 04:50 68 08/10/16 04:07 98.6 60 18 138/63 96 08/10/16 00:33 72 08/09/16 23:54 98.2 69 21 130/61 99 08/09/16 20:38 63 08/09/16 20:00 98.3 65 19 139/63 94 08/09/16 20:00 Nasal Cannula 2.0 08/09/16 16:00 62 08/09/16 15:35 98.2 64 20 143/64 97 08/09/16 12:00 57 08/09/16 11:31 97.6 60 20 113/58 98 08/09/16 08:19 64 08/09/16 07:45 98.1 67 20 108/52 99 08/09/16 04:33 64 08/09/16 04:19 98.5 66 19 137/76 98 08/09/16 00:42 64 08/08/16 23:56 97.6 67 20 133/67 98 08/08/16 20:20 Nasal Cannula 2.0 08/08/16 20:00 62 08/08/16 19:55 97.5 64 20 127/57 94 08/08/16 16:47 65 08/08/16 15:54 98.3 63 18 120/58 96 08/08/16 10:00 72 160/52 08/08/16 08:11 66 08/08/16 08:00 Nasal Cannula 2.0 08/08/16 07:48 98.5 71 18 180/76 97 08/08/16 04:15 62 08/08/16 04:03 98.1 74 19 156/60 96 08/08/16 00:31 86 08/07/16 23:41 98.1 70 17 143/65 95 08/07/16 20:15 Nasal Cannula 2.0 08/07/16 20:08 75 08/07/16 19:52 98.5 71 18 142/63 92 Vital Signs Date Time Temp Pulse Resp B/P Pulse Ox O2 Delivery O2 Flow Rate FiO2 08/10/16 16:23 65 08/10/16 15:43 98.2 20 135/61 98 08/09/16 20:00 Nasal Cannula 2.0 Intake and Output 08/09/16 08/09/16 08/10/16 15:00 23:00 07:00 Intake Total 1200 ml 400 ml Output Total 1700 ml 1200 ml Balance -500 ml -800 ml Exam Constitutional: alert, obese, oriented Psych: nl mood/affect, no complaints Respiratory: clear to auscultation, normal air movement Cardiovascular: nl pulses, regular rate and rhythm, No edema, No murmurs/extra sounds, No rub Gastrointestinal: bowel sounds, nl liver, spleen, non-tender, soft, No mass, No rebound or guarding Musculoskeletal: nl extremities to inspection Extremities: No clubbing, No cyanosis, No edema Neurological: AMBULANCE ATTENDANT II-XII intact, nl mental status, nl speech, nl strength Additional Comments Bedside Glucose - 72 Hours Test 08/07/16 20:22 08/08/16 02:18 08/08/16 07:56 08/08/16 10:18 Bedside Glucose 380mg/dL (70-220) H 251mg/dL (70-220) H 310mg/dL (70-220) H 269mg/dL (70-220) H Test 08/08/16 13:38 08/08/16 17:07 08/08/16 20:19 08/09/16 08:18 Bedside Glucose 255mg/dL (70-220) H 278mg/dL (70-220) H 149mg/dL (70-220) 142mg/dL (70-220) Test 08/09/16 09:56 08/09/16 11:59 08/09/16 17:07 08/09/16 17:39 Bedside Glucose 230mg/dL (70-220) H 124mg/dL (70-220) 80mg/dL (70-220) 104mg/dL (70-220) Test 08/09/16 20:22 08/10/16 02:03 08/10/16 07:42 08/10/16 11:42 Bedside Glucose 105mg/dL (70-220) 118mg/dL (70-220) 128mg/dL (70-220) 159mg/dL (70-220) Test 08/10/16 17:05 Bedside Glucose 128mg/dL (70-220) Results Result Diagram: 08/10/16 0704 08/10/16 0704 Results 24 hrs Laboratory Tests Test 08/09/16 17:39 08/09/16 20:22 08/10/16 02:03 08/10/16 07:04 Bedside Glucose 104 105 118 White Blood Count 11.5 H Red Blood Count 5.08 Hemoglobin 12.0 Hematocrit 41.3 Mean Corpuscular Volume 81.3 L Mean Corpuscular Hemoglobin 23.6 L Mean Corpuscular Hemoglobin Concent 29.1 L Red Cell Distribution Width 20.4 H Platelet Count 362 Mean Platelet Volume 8.5 Neutrophils % 79.6 H Lymphocytes % 11.1 L Monocytes % 5.6 Eosinophils % 2.9 Basophils % 0.3 Nucleated Red Blood Cells % 0.0 Neutrophils # 9.1 H Lymphocytes # 1.3 Monocytes # 0.6 Eosinophils # 0.3 Basophils # 0.0 Nucleated Red Blood Cells # 0.0 Sodium Level 141 Potassium Level 4.1 Chloride Level 92 L Carbon Dioxide Level 35 H Anion Gap 18 H Blood Urea Nitrogen 47 H Creatinine 1.32 H Glucose Level 118 Calcium Level 9.1 Test 08/10/16 07:42 08/10/16 11:42 08/10/16 17:05 Bedside Glucose 128 159 128 Medications Medications Current Medications Ondansetron HCl (Zofran Inj) 4 mg Q6H PRN IV NAUSEA AND/OR VOMITING; Start at 20:30 Morphine Sulfate (morphine) 2 mg Q4H PRN IV PAIN LEVEL 7-10; Start 08/06/16 at 20:30 Enoxaparin Sodium (Lovenox) 30 mg DAILY SC Last administered on 08/10/16 08:01 ; Admin Dose 30 MG; Start 08/07/16 at 09:00 Furosemide (Lasix) 20 mg BID@18 IV Last administered on 08/10/16 05:42; Admin Dose 20 MG; Start 08/07/16 at 06:00 Miscellaneous Information 1 ea NOTE XX ; Start 08/06/16 at 20:30 Diagnostic Test (Pha) (Accu-Chek) 1 ea 02 XX Last administered on 08/08/16 02: 15; Admin Dose 1 EA; Start 08/07/16 at 02:00 Miscellaneous Information 1 ea NOTE XX ; Start 08/06/16 at 20:30 Glucose (Glutose) 15 gm Q15M PRN PO DECREASED GLUCOSE; Start 08/06/16 at 20:30 Glucose (Glutose) 22.5 gm Q15M PRN PO DECREASED GLUCOSE; Start 08/06/16 at 20: 30 Dextrose (D50w Syringe) 25 ml Q15M PRN IV DECREASED GLUCOSE; Start 08/06/16 at 20:30 Dextrose (D50w Syringe) 50 ml Q15M PRN IV DECREASED GLUCOSE; Start 08/06/16 at 20:30 Glucagon (Glucagen) 1 mg Q15M PRN IM DECREASED GLUCOSE; Start 08/06/16 at 20:30 Glucose (Glutose) 15 gm Q15M PRN BUCCAL DECREASED GLUCOSE; Start 08/06/16 at 20 :30 Aripiprazole (Abilify) 10 mg DAILY PO Last administered on 08/10/16 08:02; Admin Dose 10 MG; Start 08/08/16 at 09:00 Atorvastatin Calcium (Lipitor) 40 mg HS PO Last administered on 08/09/16 20:26 ; Admin Dose 40 MG; Start 08/07/16 at 21:00 Brimonidine Tartrate (Alphagan P 0.15%) 1 drop BID BOTH EYES Last administered on 08/10/16 08:02; Admin Dose 1 DROP; Start 08/07/16 at 21:00 Clopidogrel Bisulfate (plaVIX) 75 mg DAILY PO Last administered on 08/10/16 08 :02; Admin Dose 75 MG; Start 08/08/16 at 09:00 Isosorbide Mononitrate (Imdur) 60 mg DAILY PO Last administered on 08/10/16 08 :02; Admin Dose 60 MG; Start 08/08/16 at 09:00 Metoprolol Succinate (Toprol Xl) 100 mg DAILY PO Last administered on 08:02; Admin Dose 100 MG; Start 08/08/16 at 09:00 Sertraline HCl (Zoloft) 50 mg DAILY PO Last administered on 08/10/16 08:02; Admin Dose 50 MG; Start 08/08/16 at 09:00 Pantoprazole Sodium (Protonix) 20 mg BID@06,18 PO Last administered on 05:42; Admin Dose 20 MG; Start 08/07/16 at 18:00 Empaglifozin (Jardiance) 25 mg DAILY@08 PO Last administered on 08/10/16 07:59 ; Admin Dose 25 MG; Start 08/08/16 at 08:00 Linagliptin (Tradjenta) 5 mg DAILY@08 PO Last administered on 08/10/16 07:59; Admin Dose 5 MG; Start 08/08/16 at 08:00 Nitroglycerin (Nitroglycerin (Sl Tab) 0.4 Mg) 1 tab Q5M PRN SL ANGINA; Start at 20:00 Insulin Glargine (Lantus) 45 unit DAILY@08 SC Last administered on 08/10/16 08 :00; Admin Dose 45 UNIT; Start 08/09/16 at 08:00 Insulin Human NPH (Humulin N) 38 unit DAILY@20 SC Last administered on 20:24; Admin Dose 38 UNIT; Start 08/08/16 at 20:00 TONY KELLY MD August 10, 2016 17:13
[2016-08-10] MEDS: ATORVASTATIN 40 MG TAB PO SCH (20:20)
--- NOTE | 2016-08-10 20:20 | CONS ---
Date/Time of Note Date/Time of Note DATE: 08/10/16 TIME: 20:19 Assessment/Plan Assessment/Plan Chief Complaint/Hosp Course IMPRESSION: 1. Shortness of breath, assess for congestive heart failure. 2. Elevated BNP, assess for congestive heart failure. 3. Chest pain, assess for acute coronary syndrome.-negative trop x 3/No ischemia by lexiscan 4. Abnormal electrocardiogram. Assess for acute coronary syndrome. 5. Hypertensive urgency, emergency. Currently improved on oral antihypertensives. 6. Diabetes mellitus, uncontrolled blood sugars. 7. Anemia. 8. Leukocytosis. 9. Psych disorder. Recc: -Tele -serial ecg's -Continue Toprol -continue imdur -continue lasix diuresis with proabable change po tomorrow -check am cxr to assess for ongoing CHF -continue plavix Problems: Consultation Date/Type/Reason Admit Date/Time August 06, 2016 at 19:45 Initial Consult Date 08/08/16 Type of Consultation: cardiology Reason for Consultation sob Referring Provider: MADHU CAZARES Exam/Review of Systems Vital Signs Vitals Vital Signs Date Time Temp Pulse Resp B/P Pulse Ox O2 Delivery O2 Flow Rate FiO2 08/10/16 16:23 65 08/10/16 15:43 98.2 20 135/61 98 08/09/16 20:00 Nasal Cannula 2.0 Intake and Output 08/09/16 08/09/16 08/10/16 15:00 23:00 07:00 Intake Total 1200 ml 400 ml Output Total 1700 ml 1200 ml Balance -500 ml -800 ml Exam Review of Systems: CONSTITUTIONAL: No fevers, chills. PULMONARY: No sob CARDIOVASCULAR: No chest pain/palpitations GASTROINTESTINAL: No nausea/vomiting. GENITOURINARY: No hematuria/dysuria. MUSCULOSKELETAL: No myagias/arthalgias. PSYCHIATRIC: The patient denies depression. NEUROLOGIC: No weakness Constitutional: alert Psych: no complaints Head: normocephalic ENMT: mucosa pink and moist Neck: jvd (9 cm water), supple Respiratory: clear to auscultation Cardiovascular: regular rate and rhythm Gastrointestinal: non-tender, soft Extremities: edema (trace/B) Neurological: other (No focal deficits) Results Result Diagram: 08/10/16 0704 08/10/16 0704 Results 24 hrs Laboratory Tests Test 08/09/16 20:22 08/10/16 02:03 08/10/16 07:04 08/10/16 07:42 Bedside Glucose 105 118 128 White Blood Count 11.5 H Red Blood Count 5.08 Hemoglobin 12.0 Hematocrit 41.3 Mean Corpuscular Volume 81.3 L Mean Corpuscular Hemoglobin 23.6 L Mean Corpuscular Hemoglobin Concent 29.1 L Red Cell Distribution Width 20.4 H Platelet Count 362 Mean Platelet Volume 8.5 Neutrophils % 79.6 H Lymphocytes % 11.1 L Monocytes % 5.6 Eosinophils % 2.9 Basophils % 0.3 Nucleated Red Blood Cells % 0.0 Neutrophils # 9.1 H Lymphocytes # 1.3 Monocytes # 0.6 Eosinophils # 0.3 Basophils # 0.0 Nucleated Red Blood Cells # 0.0 Sodium Level 141 Potassium Level 4.1 Chloride Level 92 L Carbon Dioxide Level 35 H Anion Gap 18 H Blood Urea Nitrogen 47 H Creatinine 1.32 H Glucose Level 118 Calcium Level 9.1 Test 08/10/16 11:42 08/10/16 17:05 08/10/16 19:53 Bedside Glucose 159 128 125 Medications Medications Current Medications Ondansetron HCl (Zofran Inj) 4 mg Q6H PRN IV NAUSEA AND/OR VOMITING; Start at 20:30 Morphine Sulfate (morphine) 2 mg Q4H PRN IV PAIN LEVEL 7-10; Start 08/06/16 at 20:30 Enoxaparin Sodium (Lovenox) 30 mg DAILY SC Last administered on 08/10/16 08:01 ; Admin Dose 30 MG; Start 08/07/16 at 09:00 Furosemide (Lasix) 20 mg BID@,18 IV Last administered on 08/10/16 17:06; Admin Dose 20 MG; Start 08/07/16 at 06:00 Miscellaneous Information 1 ea NOTE XX ; Start 08/06/16 at 20:30 Diagnostic Test (Pha) (Accu-Chek) 1 ea 02 XX Last administered on 08/08/16 02: 15; Admin Dose 1 EA; Start 08/07/16 at 02:00 Miscellaneous Information 1 ea NOTE XX ; Start 08/06/16 at 20:30 Glucose (Glutose) 15 gm Q15M PRN PO DECREASED GLUCOSE; Start 08/06/16 at 20:30 Glucose (Glutose) 22.5 gm Q15M PRN PO DECREASED GLUCOSE; Start 08/06/16 at 20: 30 Dextrose (D50w Syringe) 25 ml Q15M PRN IV DECREASED GLUCOSE; Start 08/06/16 at 20:30 Dextrose (D50w Syringe) 50 ml Q15M PRN IV DECREASED GLUCOSE; Start 08/06/16 at 20:30 Glucagon (Glucagen) 1 mg Q15M PRN IM DECREASED GLUCOSE; Start 08/06/16 at 20:30 Glucose (Glutose) 15 gm Q15M PRN BUCCAL DECREASED GLUCOSE; Start 08/06/16 at 20 :30 Aripiprazole (Abilify) 10 mg DAILY PO Last administered on 08/10/16 08:02; Admin Dose 10 MG; Start 08/08/16 at 09:00 Atorvastatin Calcium (Lipitor) 40 mg HS PO Last administered on 08/09/16 20:26 ; Admin Dose 40 MG; Start 08/07/16 at 21:00 Brimonidine Tartrate (Alphagan P 0.15%) 1 drop BID BOTH EYES Last administered on 08/10/16 08:02; Admin Dose 1 DROP; Start 08/07/16 at 21:00 Clopidogrel Bisulfate (plaVIX) 75 mg DAILY PO Last administered on 08/10/16 08 :02; Admin Dose 75 MG; Start 08/08/16 at 09:00 Isosorbide Mononitrate (Imdur) 60 mg DAILY PO Last administered on 08/10/16 08 :02; Admin Dose 60 MG; Start 08/08/16 at 09:00 Metoprolol Succinate (Toprol Xl) 100 mg DAILY PO Last administered on 08:02; Admin Dose 100 MG; Start 08/08/16 at 09:00 Sertraline HCl (Zoloft) 50 mg DAILY PO Last administered on 08/10/16 08:02; Admin Dose 50 MG; Start 08/08/16 at 09:00 Pantoprazole Sodium (Protonix) 20 mg BID@06,18 PO Last administered on 17:06; Admin Dose 20 MG; Start 08/07/16 at 18:00 Empaglifozin (Jardiance) 25 mg DAILY@08 PO Last administered on 08/10/16 07:59 ; Admin Dose 25 MG; Start 08/08/16 at 08:00 Linagliptin (Tradjenta) 5 mg DAILY@08 PO Last administered on 08/10/16 07:59; Admin Dose 5 MG; Start 08/08/16 at 08:00 Nitroglycerin (Nitroglycerin (Sl Tab) 0.4 Mg) 1 tab Q5M PRN SL ANGINA; Start at 20:00 Insulin Glargine (Lantus) 45 unit DAILY@08 SC Last administered on 08/10/16 08 :00; Admin Dose 45 UNIT; Start 08/09/16 at 08:00 Insulin Human NPH (Humulin N) 38 unit DAILY@20 SC Last administered on 20:24; Admin Dose 38 UNIT; Start 08/08/16 at 20:00 TERRIE DUNN August 10, 2016 20:20
[2016-08-10] MEDS: NPH, HUMAN INSULIN ISOPHANE 3ML VIAL SC SCH (20:23)
[2016-08-11] VITALS (10 sets, daily range): BP systolic 121–145; BP diastolic 56–72; PULSE 61–73; RESP 17–21
[2016-08-11] MEDS: ACCUCHECK AT 2AM (Patients on SS coverage) XX SCH (01:49)
[2016-08-11] MEDS: PANTOPRAZOLE SODIUM 20 MG TABEC PO SCH ×2 (05:52→17:16)
[2016-08-11] MEDS: FUROSEMIDE 20 MG INJ IV SCH (05:52)
[2016-08-11 07:20] LABS: ADD SCAN DIFF NO
[2016-08-11 07:39] LABS: BASOPHIL # 0.1 10^3/ul (0.0-0.1); BASOPHILS % 0.5 % (0.0-2.0); EOSINOPHILS # 0.4 10^3/ul (0.0-0.5); EOSINOPHILS % 3.6 % (0.0-7.0); HEMATOCRIT 43.3 % (37.0-47.0); HEMOGLOBIN 12.7 g/dl (12.0-16.0); LYMPHOCYTES # 1.2 10^3/ul (0.8-2.9); LYMPHOCYTES % 11.9 % (15.0-51.0); MEAN CORPUSCULAR HEMOGLOBIN 23.5 pg (29.0-33.0); MEAN CORPUSCULAR HGB CONC 29.3 g/dl (32.0-37.0); MEAN CORPUSCULAR VOLUME 80.2 fl (82.0-101.0); MEAN PLATELET VOLUME 8.5 fl (7.4-10.4); MONOCYTE # 0.5 10^3/ul (0.3-0.9); MONOCYTES % 5.3 % (0.0-11.0); NEUTROPHILS % 78.1 % (39.0-77.0); PLATELET COUNT 384 10^3/UL (140-415); RED CELL DISTRIBUTION WIDTH 20.5 % (11.5-14.5); WHITE BLOOD COUNT 10.3 10^3/ul (4.8-10.8)
[2016-08-11 07:49] LABS: POTASSIUM 3.7 mmol/L (3.5-5.1)
[2016-08-11] MEDS: [UNRECOGNIZED DRUG - OTHER] SC SCH ×3 (07:49→16:49)
[2016-08-11] MEDS: LINAGLIPTIN 5 MG TABLET PO SCH (07:50)
[2016-08-11] MEDS: EMPAGLIFLOZIN 10 MG TABLET PO SCH (07:50)
[2016-08-11 07:52] LABS: CREATININE 1.23 mg/dl (0.44-1.00)
[2016-08-11 07:53] LABS: CALCIUM 9.2 mg/dl (8.4-10.2)
[2016-08-11] MEDS: INSULIN ASPART [NOVOLOG] 3 ML PEN SC SCH ×7 (08:17→21:00)
[2016-08-11] MEDS: INSULIN GLARGINE [LANtus] 3 ML PEN SC SCH (08:17)
[2016-08-11] MEDS: ENOXAPARIN 30 MG/0.3 ML SYG SC SCH (08:19)
[2016-08-11] MEDS: BRIMONIDINE 0.15% 5 ML OPH BOTH EYES SCH ×2 (08:19→21:19)
[2016-08-11] MEDS: SERTRALINE 50 MG TAB PO SCH (08:20)
[2016-08-11] MEDS: CLOPIDOGREL 75 MG TAB PO SCH (08:20)
[2016-08-11] MEDS: ARIPIPRAZOLE 10 MG TAB PO SCH (08:20)
[2016-08-11] MEDS: METOPROLOL (XL) 100 MG TAB PO SCH (08:21)
[2016-08-11] MEDS: ISOSORBIDE MONONITRATE(SR)60 MG TAB PO SCH (08:21)
--- NOTE | 2016-08-11 09:29 | RADRPT ---
PROCEDURE: XR Chest 1 view. CLINICAL INDICATION: Shortness of breath. TECHNIQUE: AP views of the chest were obtained. COMPARISON: August 06, 2016 FINDINGS: The heart is large. Calcified atherosclerosis is noted in the aorta. Scattered atelectasis is noted in the bilateral lower lobes. No consolidations are identified. No pneumothorax is seen. The vanessa gs are hyperexpanded. The osseous structures are osteopenic, but appear grossly intact. IMPRESSION: Cardiomegaly with calcified atherosclerosis in the aorta. Scattered atelectasis in the bilateral lower lobes. Hyperexpanded lungs. RPTAT: AA .Brian Church MD, Date Time Electronically viewed and signed by .Brian Church MD, on 08/11/2016 09:29 .P/
--- NOTE | 2016-08-11 10:48 | CONS ---
Date/Time of Note Date/Time of Note DATE: 08/11/16 TIME: 10:45 Assessment/Plan Assessment/Plan Additional Assessment/Plan Assessment and recommendations; 1. Patient admitted for shortness of breath due to diastolic dysfunction causing mild pulmonary edema. There has been significant interval improvement. 2. Underlying morbid obesity. 3. History of hypertension or diabetes. 4. Negative nuclear SPECT cardiac stress test. 5. Ambulatory pulse oximetry on room air is around 94%. Continue current treatment. Patient can be discharged home. Patient potentially could benefit from a sleep study on outpatient basis. Consultation Date/Type/Reason Admit Date/Time August 06, 2016 at 19:45 Initial Consult Date 08/08/16 Type of Consultation: Pulmonary Referring Provider: MADHU CAZARES 24 HR Interval Summary Free Text/Dictation Patient condition stable. Denies any shortness of breath, chest pain. Patient is ambulatory. General exam; elderly lady, awake alert currently in no distress. Sitting in a chair by bedside. Exam/Review of Systems Vital Signs Vitals Vital Signs Date Time Temp Pulse Resp B/P Pulse Ox O2 Delivery O2 Flow Rate FiO2 08/11/16 08:12 73 08/11/16 07:18 98.3 17 133/60 95 08/09/16 20:00 Nasal Cannula 2.0 Intake and Output 08/10/16 08/10/16 08/11/16 15:00 23:00 07:00 Intake Total 1400 ml 300 ml Balance 1400 ml 300 ml Exam HEENT examination; supple neck, no JVD. No lymphadenopathy. Midline trachea. No thyromegaly. No neck masses. Patient is edentulous. Pharynx is clear. Pupils are midsize and reactive to light. Chest examination; diminished but clear vessel. S1-S2 audible, no murmurs. Regular rhythm. Abdomen examination; soft, protuberant. Nontender. Bowel sounds audible. No organomegaly. Extremity examination; no peripheral edema. 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 Results Result Diagram: 08/11/16 0655 08/11/16 0656 Results 24 hrs Laboratory Tests Test 08/10/16 11:42 08/10/16 17:05 08/10/16 19:53 08/11/16 03:10 Bedside Glucose 159 128 125 197 Test 08/11/16 06:55 08/11/16 06:56 08/11/16 07:51 White Blood Count 10.3 Red Blood Count 5.40 Hemoglobin 12.7 Hematocrit 43.3 Mean Corpuscular Volume 80.2 L Mean Corpuscular Hemoglobin 23.5 L Mean Corpuscular Hemoglobin Concent 29.3 L Red Cell Distribution Width 20.5 H Platelet Count 384 Mean Platelet Volume 8.5 Neutrophils % 78.1 H Lymphocytes % 11.9 L Monocytes % 5.3 Eosinophils % 3.6 Basophils % 0.5 Nucleated Red Blood Cells % 0.0 Neutrophils # 8.0 H Lymphocytes # 1.2 Monocytes # 0.5 Eosinophils # 0.4 Basophils # 0.1 Nucleated Red Blood Cells # 0.0 Sodium Level 141 Potassium Level 3.7 Chloride Level 92 L Carbon Dioxide Level 36 H Anion Gap 17 H Blood Urea Nitrogen 42 H Creatinine 1.23 H Glucose Level 150 Calcium Level 9.2 Bedside Glucose 152 Medications Medications Current Medications Ondansetron HCl (Zofran Inj) 4 mg Q6H PRN IV NAUSEA AND/OR VOMITING; Start at 20:30 Morphine Sulfate (morphine) 2 mg Q4H PRN IV PAIN LEVEL 7-10; Start 08/06/16 at 20:30 Enoxaparin Sodium (Lovenox) 30 mg DAILY SC Last administered on 08/11/16 08:19 ; Admin Dose 30 MG; Start 08/07/16 at 09:00 Furosemide (Lasix) 20 mg BID@06,18 IV Last administered on 08/11/16 05:52; Admin Dose 20 MG; Start 08/07/16 at 06:00 Miscellaneous Information 1 ea NOTE XX ; Start 08/06/16 at 20:30 Diagnostic Test (Pha) (Accu-Chek) 1 ea 02 XX Last administered on 08/11/16 01: 49; Admin Dose 1 EA; Start 08/07/16 at 02:00 Miscellaneous Information 1 ea NOTE XX ; Start 08/06/16 at 20:30 Glucose (Glutose) 15 gm Q15M PRN PO DECREASED GLUCOSE; Start 08/06/16 at 20:30 Glucose (Glutose) 22.5 gm Q15M PRN PO DECREASED GLUCOSE; Start 08/06/16 at 20: 30 Dextrose (D50w Syringe) 25 ml Q15M PRN IV DECREASED GLUCOSE; Start 08/06/16 at 20:30 Dextrose (D50w Syringe) 50 ml Q15M PRN IV DECREASED GLUCOSE; Start 08/06/16 at 20:30 Glucagon (Glucagen) 1 mg Q15M PRN IM DECREASED GLUCOSE; Start 08/06/16 at 20:30 Glucose (Glutose) 15 gm Q15M PRN BUCCAL DECREASED GLUCOSE; Start 08/06/16 at 20 :30 Aripiprazole (Abilify) 10 mg DAILY PO Last administered on 08/11/16 08:20; Admin Dose 10 MG; Start 08/08/16 at 09:00 Atorvastatin Calcium (Lipitor) 40 mg HS PO Last administered on 08/10/16 20:20 ; Admin Dose 40 MG; Start 08/07/16 at 21:00 Brimonidine Tartrate (Alphagan P 0.15%) 1 drop BID BOTH EYES Last administered on 08/11/16 08:19; Admin Dose 1 DROP; Start 08/07/16 at 21:00 Clopidogrel Bisulfate (plaVIX) 75 mg DAILY PO Last administered on 08/11/16 08 :20; Admin Dose 75 MG; Start 08/08/16 at 09:00 Isosorbide Mononitrate (Imdur) 60 mg DAILY PO Last administered on 08/11/16 08 :21; Admin Dose 60 MG; Start 08/08/16 at 09:00 Metoprolol Succinate (Toprol Xl) 100 mg DAILY PO Last administered on 08:21; Admin Dose 100 MG; Start 08/08/16 at 09:00 Sertraline HCl (Zoloft) 50 mg DAILY PO Last administered on 08/11/16 08:20; Admin Dose 50 MG; Start 08/08/16 at 09:00 Pantoprazole Sodium (Protonix) 20 mg BID@06,18 PO Last administered on 05:52; Admin Dose 20 MG; Start 08/07/16 at 18:00 Empaglifozin (Jardiance) 25 mg DAILY@08 PO Last administered on 08/11/16 07:50 ; Admin Dose 25 MG; Start 08/08/16 at 08:00 Linagliptin (Tradjenta) 5 mg DAILY@08 PO Last administered on 08/11/16 07:50; Admin Dose 5 MG; Start 08/08/16 at 08:00 Nitroglycerin (Nitroglycerin (Sl Tab) 0.4 Mg) 1 tab Q5M PRN SL ANGINA; Start at 20:00 Insulin Glargine (Lantus) 45 unit DAILY@08 SC Last administered on 08/11/16 08 :17; Admin Dose 45 UNIT; Start 08/09/16 at 08:00 Insulin Human NPH (Humulin N) 38 unit DAILY@20 SC Last administered on 20:23; Admin Dose 38 UNIT; Start 08/08/16 at 20:00 MIGUEL RIVERA August 11, 2016 10:48
--- NOTE | 2016-08-11 16:08 | CONS ---
Date/Time of Note Date/Time of Note DATE: 08/11/16 TIME: 16:04 Assessment/Plan Assessment/Plan Problems: (1) DM w/o complication type II, uncontrolled Status: Chronic Comment: Good glycemic control. Cont. current insulin regimen. On d/c, pt. will need to resume her previous home regimen as this regimen is not effective for her home diet. Consultation Date/Type/Reason Admit Date/Time August 06, 2016 at 19:45 Initial Consult Date 08/08/16 Type of Consultation: Endocrinology Reason for Consultation T2DM OOC Referring Provider: MADHU CAZARES 24 HR Interval Summary Constitutional: improved, no complaints Detailed Summary Respiratory: no complaints Cardiovascular: no complaints Gastrointestinal: no complaints Genitourinary: no complaints Musculoskeletal: no complaints Neurologic: no complaints Exam/Review of Systems Vital Signs Vitals VS - Last 72 Hours, by Label Date Time Temp Pulse Resp B/P Pulse Ox O2 Delivery O2 Flow Rate FiO2 08/11/16 15:21 97.9 61 17 140/62 97 08/11/16 12:49 61 08/11/16 11:12 98.2 66 18 145/72 94 08/11/16 08:12 73 08/11/16 07:18 98.3 67 17 133/60 95 08/11/16 04:09 66 08/11/16 00:53 63 08/10/16 20:35 62 08/10/16 16:23 65 08/10/16 15:43 98.2 71 20 135/61 98 08/10/16 12:36 62 08/10/16 11:28 97.9 65 20 105/54 97 08/10/16 08:13 66 08/10/16 07:37 97.9 64 20 125/58 99 08/10/16 04:50 68 08/10/16 04:07 98.6 60 18 138/63 96 08/10/16 00:33 72 08/09/16 23:54 98.2 69 21 130/61 99 08/09/16 20:38 63 08/09/16 20:00 98.3 65 19 139/63 94 08/09/16 20:00 Nasal Cannula 2.0 08/09/16 16:00 62 08/09/16 15:35 98.2 64 20 143/64 97 08/09/16 12:00 57 08/09/16 11:31 97.6 60 20 113/58 98 08/09/16 08:19 64 08/09/16 07:45 98.1 67 20 108/52 99 08/09/16 04:33 64 08/09/16 04:19 98.5 66 19 137/76 98 08/09/16 00:42 64 08/08/16 23:56 97.6 67 20 133/67 98 08/08/16 20:20 Nasal Cannula 2.0 08/08/16 20:00 62 08/08/16 19:55 97.5 64 20 127/57 94 08/08/16 16:47 65 Vital Signs Date Time Temp Pulse Resp B/P Pulse Ox O2 Delivery O2 Flow Rate FiO2 08/11/16 15:21 97.9 61 17 140/62 97 08/09/16 20:00 Nasal Cannula 2.0 Intake and Output 08/10/16 08/10/16 08/11/16 15:00 23:00 07:00 Intake Total 1400 ml 300 ml Balance 1400 ml 300 ml Exam Constitutional: alert, obese, oriented Psych: nl mood/affect, no complaints Respiratory: clear to auscultation, normal air movement Cardiovascular: nl pulses, regular rate and rhythm, No edema, No murmurs/extra sounds, No rub Gastrointestinal: bowel sounds, nl liver, spleen, non-tender, soft, No mass, No rebound or guarding Musculoskeletal: nl extremities to inspection Extremities: normal pulses, No clubbing, No cyanosis, No edema 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, nl mental status, nl speech, nl strength Additional Comments Bedside Glucose - 72 Hours Test 08/08/16 17:07 08/08/16 20:19 08/09/16 08:18 08/09/16 09:56 Bedside Glucose 278mg/dL (70-220) H 149mg/dL (70-220) 142mg/dL (70-220) 230mg/dL (70-220) H Test 08/09/16 11:59 08/09/16 17:07 08/09/16 17:39 08/09/16 20:22 Bedside Glucose 124mg/dL (70-220) 80mg/dL (70-220) 104mg/dL (70-220) 105mg/dL (70-220) Test 08/10/16 02:03 08/10/16 07:42 08/10/16 11:42 08/10/16 17:05 Bedside Glucose 118mg/dL (70-220) 128mg/dL (70-220) 159mg/dL (70-220) 128mg/dL (70-220) Test 08/10/16 19:53 08/11/16 03:10 08/11/16 07:51 08/11/16 11:38 Bedside Glucose 125mg/dL (70-220) 197mg/dL (70-220) 152mg/dL (70-220) 186mg/dL (70-220) Results Result Diagram: 08/11/16 0655 08/11/16 0656 Results 24 hrs Laboratory Tests Test 08/10/16 17:05 08/10/16 19:53 08/11/16 03:10 08/11/16 06:55 Bedside Glucose 128 125 197 White Blood Count 10.3 Red Blood Count 5.40 Hemoglobin 12.7 Hematocrit 43.3 Mean Corpuscular Volume 80.2 L Mean Corpuscular Hemoglobin 23.5 L Mean Corpuscular Hemoglobin Concent 29.3 L Red Cell Distribution Width 20.5 H Platelet Count 384 Mean Platelet Volume 8.5 Neutrophils % 78.1 H Lymphocytes % 11.9 L Monocytes % 5.3 Eosinophils % 3.6 Basophils % 0.5 Nucleated Red Blood Cells % 0.0 Neutrophils # 8.0 H Lymphocytes # 1.2 Monocytes # 0.5 Eosinophils # 0.4 Basophils # 0.1 Nucleated Red Blood Cells # 0.0 Test 08/11/16 06:56 08/11/16 07:51 08/11/16 11:38 Sodium Level 141 Potassium Level 3.7 Chloride Level 92 L Carbon Dioxide Level 36 H Anion Gap 17 H Blood Urea Nitrogen 42 H Creatinine 1.23 H Glucose Level 150 Calcium Level 9.2 Bedside Glucose 152 186 Medications Medications Current Medications Ondansetron HCl (Zofran Inj) 4 mg Q6H PRN IV NAUSEA AND/OR VOMITING; Start at 20:30 Morphine Sulfate (morphine) 2 mg Q4H PRN IV PAIN LEVEL 7-10; Start 08/06/16 at 20:30 Enoxaparin Sodium (Lovenox) 30 mg DAILY SC Last administered on 08/11/16t 08:19 ; Admin Dose 30 MG; Start 08/07/16 at 09:00 Furosemide (Lasix) 20 mg BID@,18 IV Last administered on 08/11/16 05:52; Admin Dose 20 MG; Start 08/07/16 at 06:00 Miscellaneous Information 1 ea NOTE XX ; Start 08/06/16 at 20:30 Diagnostic Test (Pha) (Accu-Chek) 1 ea 02 XX Last administered on 08/11/16 01: 49; Admin Dose 1 EA; Start 08/07/16 at 02:00 Miscellaneous Information 1 ea NOTE XX ; Start 08/06/16 at 20:30 Glucose (Glutose) 15 gm Q15M PRN PO DECREASED GLUCOSE; Start 08/06/16 at 20:30 Glucose (Glutose) 22.5 gm Q15M PRN PO DECREASED GLUCOSE; Start 08/06/16 at 20: 30 Dextrose (D50w Syringe) 25 ml Q15M PRN IV DECREASED GLUCOSE; Start 08/06/16 at 20:30 Dextrose (D50w Syringe) 50 ml Q15M PRN IV DECREASED GLUCOSE; Start 08/06/16 at 20:30 Glucagon (Glucagen) 1 mg Q15M PRN IM DECREASED GLUCOSE; Start 08/06/16 at 20:30 Glucose (Glutose) 15 gm Q15M PRN BUCCAL DECREASED GLUCOSE; Start 08/06/16 at 20 :30 Aripiprazole (Abilify) 10 mg DAILY PO Last administered on 08/11/16 08:20; Admin Dose 10 MG; Start 08/08/16 at 09:00 Atorvastatin Calcium (Lipitor) 40 mg HS PO Last administered on 08/10/16 20:20 ; Admin Dose 40 MG; Start 08/07/16 at 21:00 Brimonidine Tartrate (Alphagan P 0.15%) 1 drop BID BOTH EYES Last administered on 08/11/16 08:19; Admin Dose 1 DROP; Start 08/07/16 at 21:00 Clopidogrel Bisulfate (plaVIX) 75 mg DAILY PO Last administered on 08/11/16 08 :20; Admin Dose 75 MG; Start 08/08/16 at 09:00 Isosorbide Mononitrate (Imdur) 60 mg DAILY PO Last administered on 08/11/16 08 :21; Admin Dose 60 MG; Start 08/08/16 at 09:00 Metoprolol Succinate (Toprol Xl) 100 mg DAILY PO Last administered on 08:21; Admin Dose 100 MG; Start 08/08/16 at 09:00 Sertraline HCl (Zoloft) 50 mg DAILY PO Last administered on 08/11/16 08:20; Admin Dose 50 MG; Start 08/08/16 at 09:00 Pantoprazole Sodium (Protonix) 20 mg BID@06,18 PO Last administered on 05:52; Admin Dose 20 MG; Start 08/07/16 at 18:00 Empaglifozin (Jardiance) 25 mg DAILY@08 PO Last administered on 08/11/16 07:50 ; Admin Dose 25 MG; Start 08/08/16 at 08:00 Linagliptin (Tradjenta) 5 mg DAILY@08 PO Last administered on 08/11/16 07:50; Admin Dose 5 MG; Start 08/08/16 at 08:00 Nitroglycerin (Nitroglycerin (Sl Tab) 0.4 Mg) 1 tab Q5M PRN SL ANGINA; Start at 20:00 Insulin Glargine (Lantus) 45 unit DAILY@08 SC Last administered on 08/11/16 08 :17; Admin Dose 45 UNIT; Start 08/09/16 at 08:00 Insulin Human NPH (Humulin N) 38 unit DAILY@20 SC Last administered on 20:23; Admin Dose 38 UNIT; Start 08/08/16 at 20:00 TONY KELLY MD August 11, 2016 16:08
--- NOTE | 2016-08-11 17:05 | CONS ---
Date/Time of Note Date/Time of Note DATE: 08/11/16 TIME: 17:01 Assessment/Plan Assessment/Plan Chief Complaint/Hosp Course IMPRESSION: 1. Shortness of breath, assess for congestive heart failure. 2. Elevated BNP, assess for congestive heart failure. 3. Chest pain, assess for acute coronary syndrome.-negative trop x 3/No ischemia by lexiscan 4. Abnormal electrocardiogram. Assess for acute coronary syndrome. 5. Hypertensive urgency, emergency. Currently improved on oral antihypertensives. 6. Diabetes mellitus, uncontrolled blood sugars. 7. Anemia. 8. Leukocytosis. 9. Psych disorder. 10. CHF-diastolic acute on chronic-improved volume status by exam/cxr Recc: -Tele -serial ecg's -Continue Toprol -continue imdur -continue lasix diuresis whch I will change to PO -continue plavix Problems: Consultation Date/Type/Reason Admit Date/Time August 06, 2016 at 19:45 Initial Consult Date 08/08/16 Type of Consultation: Cardiology Reason for Consultation CHF Referring Provider: MADHU CAZARES Exam/Review of Systems Vital Signs Vitals Vital Signs Date Time Temp Pulse Resp B/P Pulse Ox O2 Delivery O2 Flow Rate FiO2 08/11/16 16:47 65 08/11/16 15:21 97.9 17 140/62 97 08/09/16 20:00 Nasal Cannula 2.0 Intake and Output 08/10/16 08/10/16 08/11/16 15:00 23:00 07:00 Intake Total 1400 ml 300 ml Balance 1400 ml 300 ml Exam Review of Systems: CONSTITUTIONAL: No fevers, chills. PULMONARY: No sob CARDIOVASCULAR: No chest pain/palpitations GASTROINTESTINAL: No nausea/vomiting. GENITOURINARY: No hematuria/dysuria. MUSCULOSKELETAL: No myagias/arthalgias. PSYCHIATRIC: The patient denies depression. NEUROLOGIC: No weakness Constitutional: alert Psych: no complaints Head: normocephalic ENMT: mucosa pink and moist Neck: jvd (9 cm water), supple Respiratory: diminished breath sounds Cardiovascular: regular rate and rhythm Gastrointestinal: non-tender, soft Musculoskeletal: muscle tone (normal) Extremities: edema (nonw) Neurological: other (No focal deficits) Results Result Diagram: 08/11/16 0655 08/11/16 0656 Results 24 hrs Laboratory Tests Test 08/10/16 17:05 08/10/16 19:53 08/11/16 03:10 08/11/16 06:55 Bedside Glucose 128 125 197 White Blood Count 10.3 Red Blood Count 5.40 Hemoglobin 12.7 Hematocrit 43.3 Mean Corpuscular Volume 80.2 L Mean Corpuscular Hemoglobin 23.5 L Mean Corpuscular Hemoglobin Concent 29.3 L Red Cell Distribution Width 20.5 H Platelet Count 384 Mean Platelet Volume 8.5 Neutrophils % 78.1 H Lymphocytes % 11.9 L Monocytes % 5.3 Eosinophils % 3.6 Basophils % 0.5 Nucleated Red Blood Cells % 0.0 Neutrophils # 8.0 H Lymphocytes # 1.2 Monocytes # 0.5 Eosinophils # 0.4 Basophils # 0.1 Nucleated Red Blood Cells # 0.0 Test 08/11/16 06:56 08/11/16 07:51 08/11/16 11:38 08/11/16 16:52 Sodium Level 141 Potassium Level 3.7 Chloride Level 92 L Carbon Dioxide Level 36 H Anion Gap 17 H Blood Urea Nitrogen 42 H Creatinine 1.23 H Glucose Level 150 Calcium Level 9.2 Bedside Glucose 152 186 81 Medications Medications Current Medications Ondansetron HCl (Zofran Inj) 4 mg Q6H PRN IV NAUSEA AND/OR VOMITING; Start at 20:30 Morphine Sulfate (morphine) 2 mg Q4H PRN IV PAIN LEVEL 7-10; Start 08/06/16 at 20:30 Enoxaparin Sodium (Lovenox) 30 mg DAILY SC Last administered on 08/11/16 08:19 ; Admin Dose 30 MG; Start 08/07/16 at 09:00 Furosemide (Lasix) 20 mg BID@06,18 IV Last administered on 08/11/16 05:52; Admin Dose 20 MG; Start 08/07/16 at 06:00 Miscellaneous Information 1 ea NOTE XX ; Start 08/06/16 at 20:30 Diagnostic Test (Pha) (Accu-Chek) 1 ea 02 XX Last administered on 08/11/16 01: 49; Admin Dose 1 EA; Start 08/07/16 at 02:00 Miscellaneous Information 1 ea NOTE XX ; Start 08/06/16 at 20:30 Glucose (Glutose) 15 gm Q15M PRN PO DECREASED GLUCOSE; Start 08/06/16 at 20:30 Glucose (Glutose) 22.5 gm Q15M PRN PO DECREASED GLUCOSE; Start 08/06/16 at 20: 30 Dextrose (D50w Syringe) 25 ml Q15M PRN IV DECREASED GLUCOSE; Start 08/06/16 at 20:30 Dextrose (D50w Syringe) 50 ml Q15M PRN IV DECREASED GLUCOSE; Start 08/06/16 at 20:30 Glucagon (Glucagen) 1 mg Q15M PRN IM DECREASED GLUCOSE; Start 08/06/16 at 20:30 Glucose (Glutose) 15 gm Q15M PRN BUCCAL DECREASED GLUCOSE; Start 08/06/16 at 20 :30 Aripiprazole (Abilify) 10 mg DAILY PO Last administered on 08/11/16 08:20; Admin Dose 10 MG; Start 08/08/16 at 09:00 Atorvastatin Calcium (Lipitor) 40 mg HS PO Last administered on 08/10/16 20:20 ; Admin Dose 40 MG; Start 08/07/16 at 21:00 Brimonidine Tartrate (Alphagan P 0.15%) 1 drop BID BOTH EYES Last administered on 08/11/16 08:19; Admin Dose 1 DROP; Start 08/07/16 at 21:00 Clopidogrel Bisulfate (plaVIX) 75 mg DAILY PO Last administered on 08/11/16 08 :20; Admin Dose 75 MG; Start 08/08/16 at 09:00 Isosorbide Mononitrate (Imdur) 60 mg DAILY PO Last administered on 08/11/16 08 :21; Admin Dose 60 MG; Start 08/08/16 at 09:00 Metoprolol Succinate (Toprol Xl) 100 mg DAILY PO Last administered on 08:21; Admin Dose 100 MG; Start 08/08/16 at 09:00 Sertraline HCl (Zoloft) 50 mg DAILY PO Last administered on 08/11/16 08:20; Admin Dose 50 MG; Start 08/08/16 at 09:00 Pantoprazole Sodium (Protonix) 20 mg BID@06,18 PO Last administered on 05:52; Admin Dose 20 MG; Start 08/07/16 at 18:00 Empaglifozin (Jardiance) 25 mg DAILY@08 PO Last administered on 08/11/16 07:50 ; Admin Dose 25 MG; Start 08/08/16 at 08:00 Linagliptin (Tradjenta) 5 mg DAILY@08 PO Last administered on 08/11/16 07:50; Admin Dose 5 MG; Start 08/08/16 at 08:00 Nitroglycerin (Nitroglycerin (Sl Tab) 0.4 Mg) 1 tab Q5M PRN SL ANGINA; Start at 20:00 Insulin Glargine (Lantus) 45 unit DAILY@08 SC Last administered on 08/11/16 08 :17; Admin Dose 45 UNIT; Start 08/09/16 at 08:00 Insulin Human NPH (Humulin N) 38 unit DAILY@20 SC Last administered on 20:23; Admin Dose 38 UNIT; Start 08/08/16 at 20:00 TERRIE DUNN August 11, 2016 17:05
[2016-08-11] MEDS: FUROSEMIDE 20 MG TAB PO SCH (17:19)
--- NOTE | 2016-08-11 17:49 | PN ---
Date/Time of Note Date/Time of Note DATE: 08/11/16 TIME: 17:47 Assessment/Plan VTE Prophylaxis VTE Prophylaxis Intervention: SCD's Lines/Catheters IV [facility] Urinary Cath still in place: No Assessment/Plan Chief Complaint/Hosp Course ASSESSMENT AND PLAN: 1. Diastolic acute on chronic congestive heart failure exacerbation. Continue Lasix IV. Dr. Cota is following patient. Cardiology consultation. Continue to monitor electrolytes. 2. Hypertension. Continue Toprol. 3. Hyperkalemia, resolved. 4. Bilateral lower extremity edema secondary to change in CHF. Bilateral lower extremities ultrasound is negative for deep venous thrombosis. 5. Diabetes mellitus type 2. Dr. Bartholomew is following in endocrinology consultation. Continue Lantus NPH and NovoLog. 6. Acute on chronic kidney disease. Continue to monitor BUN and creatinine. 7. Rule out acute coronary syndrome, status post stress test. 8. Hyperlipidemia. Continue statin. 9. Morbid obesity with BMI 50. Continue Lovenox for deep venous thrombosis prophylaxis and Pepcid for peptic ulcer disease prophylaxis. Further recommendations based on clinical course. Plan of care discussed with Dr. Garza. Problems: Exam/Review of Systems Vital Signs Vitals Vital Signs Date Time Temp Pulse Resp B/P Pulse Ox O2 Delivery O2 Flow Rate FiO2 08/11/16 16:47 65 08/11/16 15:21 97.9 17 140/62 97 08/09/16 20:00 Nasal Cannula 2.0 Intake and Output 08/10/16 08/10/16 08/11/16 15:00 23:00 07:00 Intake Total 1400 ml 300 ml Balance 1400 ml 300 ml Exam GENERAL: This is a well-developed, obese female currently is lethargic but easily arousable. HEENT: Head is atraumatic, normocephalic. Pupils equal, round, reactive to light and accommodation. Oral mucosa is pink and moist. NECK: Supple. JVD present. No cervical lymphadenopathy noted. No thyromegaly. LUNGS: Slightly diminished at the bases. Clear in the upper lobes. CARDIOVASCULAR: Normal S1, S2. No murmurs, gallops, clicks, rubs noted. ABDOMEN: Protuberant, soft, nondistended, nontender. Bowel sounds present. There is no guarding, no rebound tenderness. EXTREMITIES: Bilateral lower extremities edema at 2+. Pulses equal bilaterally 2+. SKIN: There is no rash, petechiae noted. NEUROLOGIC: The patient is awake, alert and oriented x3, no focal deficits noted. Results Result Diagram: 08/11/16 0655 08/11/16 0656 Results 24 hrs Laboratory Tests Test 08/10/16 19:53 08/11/16 03:10 08/11/16 06:55 08/11/16 06:56 Bedside Glucose 125 197 White Blood Count 10.3 Red Blood Count 5.40 Hemoglobin 12.7 Hematocrit 43.3 Mean Corpuscular Volume 80.2 L Mean Corpuscular Hemoglobin 23.5 L Mean Corpuscular Hemoglobin Concent 29.3 L Red Cell Distribution Width 20.5 H Platelet Count 384 Mean Platelet Volume 8.5 Neutrophils % 78.1 H Lymphocytes % 11.9 L Monocytes % 5.3 Eosinophils % 3.6 Basophils % 0.5 Nucleated Red Blood Cells % 0.0 Neutrophils # 8.0 H Lymphocytes # 1.2 Monocytes # 0.5 Eosinophils # 0.4 Basophils # 0.1 Nucleated Red Blood Cells # 0.0 Sodium Level 141 Potassium Level 3.7 Chloride Level 92 L Carbon Dioxide Level 36 H Anion Gap 17 H Blood Urea Nitrogen 42 H Creatinine 1.23 H Glucose Level 150 Calcium Level 9.2 Test 08/11/16 07:51 08/11/16 11:38 08/11/16 16:52 Bedside Glucose 152 186 81 Medications Medications Current Medications Ondansetron HCl (Zofran Inj) 4 mg Q6H PRN IV NAUSEA AND/OR VOMITING; Start at 20:30 Morphine Sulfate (morphine) 2 mg Q4H PRN IV PAIN LEVEL 7-10; Start 08/06/16 at 20:30 Enoxaparin Sodium (Lovenox) 30 mg DAILY SC Last administered on 08/11/16 08:19 ; Admin Dose 30 MG; Start 08/07/16 at 09:00 Miscellaneous Information 1 ea NOTE XX ; Start 08/06/16 at 20:30 Diagnostic Test (Pha) (Accu-Chek) 1 ea 02 XX Last administered on 08/11/16 01: 49; Admin Dose 1 EA; Start 08/07/16 at 02:00 Miscellaneous Information 1 ea NOTE XX ; Start 08/06/16 at 20:30 Glucose (Glutose) 15 gm Q15M PRN PO DECREASED GLUCOSE; Start 08/06/16 at 20:30 Glucose (Glutose) 22.5 gm Q15M PRN PO DECREASED GLUCOSE; Start 08/06/16 at 20: 30 Dextrose (D50w Syringe) 25 ml Q15M PRN IV DECREASED GLUCOSE; Start 08/06/16 at 20:30 Dextrose (D50w Syringe) 50 ml Q15M PRN IV DECREASED GLUCOSE; Start 08/06/16 at 20:30 Glucagon (Glucagen) 1 mg Q15M PRN IM DECREASED GLUCOSE; Start 08/06/16 at 20:30 Glucose (Glutose) 15 gm Q15M PRN BUCCAL DECREASED GLUCOSE; Start 08/06/16 at 20 :30 Aripiprazole (Abilify) 10 mg DAILY PO Last administered on 08/11/16 08:20; Admin Dose 10 MG; Start 08/08/16 at 09:00 Atorvastatin Calcium (Lipitor) 40 mg HS PO Last administered on 08/10/16 20:20 ; Admin Dose 40 MG; Start 08/07/16 at 21:00 Brimonidine Tartrate (Alphagan P 0.15%) 1 drop BID BOTH EYES Last administered on 08/11/16 08:19; Admin Dose 1 DROP; Start 08/07/16 at 21:00 Clopidogrel Bisulfate (plaVIX) 75 mg DAILY PO Last administered on 08/11/16 08 :20; Admin Dose 75 MG; Start 08/08/16 at 09:00 Isosorbide Mononitrate (Imdur) 60 mg DAILY PO Last administered on 08/11/16 08 :21; Admin Dose 60 MG; Start 08/08/16 at 09:00 Metoprolol Succinate (Toprol Xl) 100 mg DAILY PO Last administered on 08:21; Admin Dose 100 MG; Start 08/08/16 at 09:00 Sertraline HCl (Zoloft) 50 mg DAILY PO Last administered on 08/11/16 08:20; Admin Dose 50 MG; Start 08/08/16 at 09:00 Pantoprazole Sodium (Protonix) 20 mg BID@06,18 PO Last administered on 17:16; Admin Dose 20 MG; Start 08/07/16 at 18:00 Empaglifozin (Jardiance) 25 mg DAILY@08 PO Last administered on 08/11/16 07:50 ; Admin Dose 25 MG; Start 08/08/16 at 08:00 Linagliptin (Tradjenta) 5 mg DAILY@08 PO Last administered on 08/11/16 07:50; Admin Dose 5 MG; Start 08/08/16 at 08:00 Nitroglycerin (Nitroglycerin (Sl Tab) 0.4 Mg) 1 tab Q5M PRN SL ANGINA; Start at 20:00 Insulin Glargine (Lantus) 45 unit DAILY@08 SC Last administered on 08/11/16 08 :17; Admin Dose 45 UNIT; Start 08/09/16 at 08:00 Insulin Human NPH (Humulin N) 38 unit DAILY@20 SC Last administered on 20:23; Admin Dose 38 UNIT; Start 08/08/16 at 20:00 MADHU CAZARES August 11, 2016 17:49
[2016-08-11] MEDS: ATORVASTATIN 40 MG TAB PO SCH (21:19)
[2016-08-11] MEDS: NPH, HUMAN INSULIN ISOPHANE 3ML VIAL SC SCH (22:53)
[2016-08-12] VITALS (12 sets, daily range): BP systolic 119–144; BP diastolic 47–69; PULSE 55–64; RESP 17–20
[2016-08-12] MEDS: ACCUCHECK AT 2AM (Patients on SS coverage) XX SCH (02:00)
[2016-08-12] MEDS: PANTOPRAZOLE SODIUM 20 MG TABEC PO SCH ×2 (05:22→18:53)
[2016-08-12] MEDS: FUROSEMIDE 20 MG TAB PO SCH ×2 (05:22→18:53)
[2016-08-12] MEDS: INSULIN ASPART [NOVOLOG] 3 ML PEN SC SCH ×7 (08:00→23:03)
[2016-08-12] MEDS: INSULIN GLARGINE [LANtus] 3 ML PEN SC SCH (08:44)
[2016-08-12 09:02] LABS: ADD SCAN DIFF NO
[2016-08-12] MEDS: [UNRECOGNIZED DRUG - OTHER] SC SCH ×3 (09:04→17:30)
[2016-08-12 09:09] LABS: BASOPHIL # 0.1 10^3/ul (0.0-0.1); BASOPHILS % 0.4 % (0.0-2.0); EOSINOPHILS # 0.3 10^3/ul (0.0-0.5); EOSINOPHILS % 2.7 % (0.0-7.0); HEMATOCRIT 43.8 % (37.0-47.0); HEMOGLOBIN 12.7 g/dl (12.0-16.0); LYMPHOCYTES # 1.6 10^3/ul (0.8-2.9); LYMPHOCYTES % 13.7 % (15.0-51.0); MEAN CORPUSCULAR HEMOGLOBIN 23.7 pg (29.0-33.0); MEAN CORPUSCULAR VOLUME 81.9 fl (82.0-101.0); MEAN PLATELET VOLUME 8.9 fl (7.4-10.4); MONOCYTE # 0.6 10^3/ul (0.3-0.9); MONOCYTES % 5.6 % (0.0-11.0); NEUTROPHIL # 8.7 10^3/ul (1.6-7.5); NEUTROPHILS % 77.3 % (39.0-77.0); PLATELET COUNT 366 10^3/UL (140-415); RED BLOOD COUNT 5.35 10^6/ul (4.20-5.40); WHITE BLOOD COUNT 11.3 10^3/ul (4.8-10.8)
[2016-08-12 09:26] LABS: CREATININE 0.9 mg/dl (0.44-1.00); POTASSIUM 4.3 mmol/L (3.5-5.1)
[2016-08-12] MEDS: CLOPIDOGREL 75 MG TAB PO SCH (09:34)
[2016-08-12] MEDS: ARIPIPRAZOLE 10 MG TAB PO SCH (09:34)
[2016-08-12] MEDS: ISOSORBIDE MONONITRATE(SR)60 MG TAB PO SCH (09:34)
[2016-08-12] MEDS: SERTRALINE 50 MG TAB PO SCH (09:34)
[2016-08-12] MEDS: LINAGLIPTIN 5 MG TABLET PO SCH (09:35)
[2016-08-12] MEDS: EMPAGLIFLOZIN 10 MG TABLET PO SCH (09:35)
[2016-08-12] MEDS: BRIMONIDINE 0.15% 5 ML OPH BOTH EYES SCH ×2 (09:36→23:01)
[2016-08-12] MEDS: METOPROLOL (XL) 100 MG TAB PO SCH (09:36)
[2016-08-12] MEDS: ENOXAPARIN 30 MG/0.3 ML SYG SC SCH (09:37)
--- NOTE | 2016-08-12 13:24 | CONS ---
Date/Time of Note Date/Time of Note DATE: 08/12/16 TIME: 13:19 Assessment/Plan Assessment/Plan Additional Assessment/Plan Atypical chest pain Morbid Obesity CHF Abnormal electrocardiogram Hypertensive urgency Diabetes mellitus Anemia. Hemodynamically stable Stress test no myocardial ischemia Continue Toprol Discontinue Imdur Discontinue Plavix Started on losartan and Norvasc Continue Lipitor Continue Insulin. Consultation Date/Type/Reason Admit Date/Time August 06, 2016 at 19:45 Constitutional: improved, no complaints Eyes: no complaints ENT: no complaints Respiratory: no complaints Cardiovascular: no complaints Gastrointestinal: no complaints Genitourinary: no complaints Musculoskeletal: no complaints Skin: no complaints Neurologic: no complaints Endocrine: no complaints Lymphatic: no complaints Psychological: no complaints Immunologic: no complaints Past Medical History Medical History: congestive heart failure, coronary artery disease, diabetes, high cholesterol, hypertension, renal disease, other (glaucoma w/ B vision loss , anxiety, depression) Past Surgical History Past Surgical Hx: other (Ovarian cystectomy, BECKY, laser eye surgery) Social History Alcohol Use: none Smoking Status: Never smoker Drug Use: none Exam/Review of Systems Vital Signs Vitals Vital Signs Date Time Temp Pulse Resp B/P Pulse Ox O2 Delivery O2 Flow Rate FiO2 08/12/16 12:27 58 08/12/16 11:24 97.6 17 139/53 98 08/09/16 20:00 Nasal Cannula 2.0 Intake and Output 08/11/16 08/11/16 08/12/16 15:00 23:00 07:00 Intake Total 1100 ml 1000 ml Balance 1100 ml 1000 ml Exam Constitutional: alert, oriented Head: atraumatic, normocephalic Respiratory: diminished breath sounds Cardiovascular: regular rate and rhythm Gastrointestinal: non-tender, soft Extremities: normal pulses Results Result Diagram: 08/12/16 0730 08/12/16 0730 Results 24 hrs Laboratory Tests Test 08/11/16 16:52 08/11/16 21:18 08/12/16 07:30 08/12/16 08:12 Bedside Glucose 81 83 79 White Blood Count 11.3 H Red Blood Count 5.35 Hemoglobin 12.7 Hematocrit 43.8 Mean Corpuscular Volume 81.9 L Mean Corpuscular Hemoglobin 23.7 L Mean Corpuscular Hemoglobin Concent 29.0 L Red Cell Distribution Width 21.0 H Platelet Count 366 Mean Platelet Volume 8.9 Neutrophils % 77.3 H Lymphocytes % 13.7 L Monocytes % 5.6 Eosinophils % 2.7 Basophils % 0.4 Nucleated Red Blood Cells % 0.0 Neutrophils # 8.7 H Lymphocytes # 1.6 Monocytes # 0.6 Eosinophils # 0.3 Basophils # 0.1 Nucleated Red Blood Cells # 0.0 Sodium Level 140 Potassium Level 4.3 Chloride Level 98 Carbon Dioxide Level 31 Anion Gap 15 Blood Urea Nitrogen 38 H Creatinine 0.90 Glucose Level 60 #L Calcium Level 9.0 Test 08/12/16 12:26 Bedside Glucose 74 Medications Medications Current Medications Ondansetron HCl (Zofran Inj) 4 mg Q6H PRN IV NAUSEA AND/OR VOMITING; Start at 20:30 Morphine Sulfate (morphine) 2 mg Q4H PRN IV PAIN LEVEL 7-10; Start 08/06/16 at 20:30 Enoxaparin Sodium (Lovenox) 30 mg DAILY SC Last administered on 08/12/16 09:37 ; Admin Dose 30 MG; Start 08/07/16 at 09:00 Miscellaneous Information 1 ea NOTE XX ; Start 08/06/16 at 20:30 Diagnostic Test (Pha) (Accu-Chek) 1 ea 02 XX Last administered on 08/11/16 01: 49; Admin Dose 1 EA; Start 08/07/16 at 02:00 Miscellaneous Information 1 ea NOTE XX ; Start 08/06/16 at 20:30 Glucose (Glutose) 15 gm Q15M PRN PO DECREASED GLUCOSE; Start 08/06/16 at 20:30 Glucose (Glutose) 22.5 gm Q15M PRN PO DECREASED GLUCOSE; Start 08/06/16 at 20: 30 Dextrose (D50w Syringe) 25 ml Q15M PRN IV DECREASED GLUCOSE; Start 08/06/16 at 20:30 Dextrose (D50w Syringe) 50 ml Q15M PRN IV DECREASED GLUCOSE; Start 08/06/16 at 20:30 Glucagon (Glucagen) 1 mg Q15M PRN IM DECREASED GLUCOSE; Start 08/06/16 at 20:30 Glucose (Glutose) 15 gm Q15M PRN BUCCAL DECREASED GLUCOSE; Start 08/06/16 at 20 :30 Aripiprazole (Abilify) 10 mg DAILY PO Last administered on 08/12/16 09:34; Admin Dose 10 MG; Start 08/08/16 at 09:00 Atorvastatin Calcium (Lipitor) 40 mg HS PO Last administered on 08/11/16 21:19 ; Admin Dose 40 MG; Start 08/07/16 at 21:00 Brimonidine Tartrate (Alphagan P 0.15%) 1 drop BID BOTH EYES Last administered on 08/12/16 09:36; Admin Dose 1 DROP; Start 08/07/16 at 21:00 Clopidogrel Bisulfate (plaVIX) 75 mg DAILY PO Last administered on 08/12/16 09 :34; Admin Dose 75 MG; Start 08/08/16 at 09:00 Isosorbide Mononitrate (Imdur) 60 mg DAILY PO Last administered on 08/12/16 09 :34; Admin Dose 60 MG; Start 08/08/16 at 09:00 Metoprolol Succinate (Toprol Xl) 100 mg DAILY PO Last administered on 09:36; Admin Dose 100 MG; Start 08/08/16 at 09:00 Sertraline HCl (Zoloft) 50 mg DAILY PO Last administered on 08/12/16 09:34; Admin Dose 50 MG; Start 08/08/16 at 09:00 Pantoprazole Sodium (Protonix) 20 mg BID@06,18 PO Last administered on 05:22; Admin Dose 20 MG; Start 08/07/16 at 18:00 Empaglifozin (Jardiance) 25 mg DAILY@08 PO Last administered on 08/12/16 09:35 ; Admin Dose 25 MG; Start 08/08/16 at 08:00 Linagliptin (Tradjenta) 5 mg DAILY@08 PO Last administered on 08/12/16 09:35; Admin Dose 5 MG; Start 08/08/16 at 08:00 Nitroglycerin (Nitroglycerin (Sl Tab) 0.4 Mg) 1 tab Q5M PRN SL ANGINA; Start at 20:00 Insulin Glargine (Lantus) 45 unit DAILY@08 SC Last administered on 08/12/16 08 :44; Admin Dose 45 UNIT; Start 08/09/16 at 08:00 Insulin Human NPH (Humulin N) 38 unit DAILY@20 SC Last administered on 22:53; Admin Dose 38 UNIT; Start 08/08/16 at 20:00 DAMION LARA M.D. August 12, 2016 13:24
--- NOTE | 2016-08-12 13:30 | CONS ---
Date/Time of Note Date/Time of Note DATE: 08/12/16 TIME: 13:28 Assessment/Plan Assessment/Plan Problems: (1) DM w/o complication type II, uncontrolled Status: Chronic Comment: On current mregimen good control. I concur with Dr. Bartholomew re at discharge resume home regimen as this regimen would not be usable for this individual at home Consultation Date/Type/Reason Admit Date/Time August 06, 2016 at 19:45 Initial Consult Date 08/08/16 Type of Consultation: endocrinology Reason for Consultation DM2; Morbid Obesity Referring Provider: MADHU CAZARES 24 HR Interval Summary Free Text/Dictation Wants to go home Constitutional: no complaints Exam/Review of Systems Vital Signs Vitals Vital Signs Date Time Temp Pulse Resp B/P Pulse Ox O2 Delivery O2 Flow Rate FiO2 08/12/16 12:27 58 08/12/16 11:24 97.6 17 139/53 98 08/09/16 20:00 Nasal Cannula 2.0 Intake and Output 08/11/16 08/11/16 08/12/16 15:00 23:00 07:00 Intake Total 1100 ml 1000 ml Balance 1100 ml 1000 ml Exam No changes Constitutional: alert, oriented Results Result Diagram: 08/12/16 0730 08/12/16 0730 Results 24 hrs Laboratory Tests Test 08/11/16 16:52 08/11/16 21:18 08/12/16 07:30 08/12/16 08:12 Bedside Glucose 81 83 79 White Blood Count 11.3 H Red Blood Count 5.35 Hemoglobin 12.7 Hematocrit 43.8 Mean Corpuscular Volume 81.9 L Mean Corpuscular Hemoglobin 23.7 L Mean Corpuscular Hemoglobin Concent 29.0 L Red Cell Distribution Width 21.0 H Platelet Count 366 Mean Platelet Volume 8.9 Neutrophils % 77.3 H Lymphocytes % 13.7 L Monocytes % 5.6 Eosinophils % 2.7 Basophils % 0.4 Nucleated Red Blood Cells % 0.0 Neutrophils # 8.7 H Lymphocytes # 1.6 Monocytes # 0.6 Eosinophils # 0.3 Basophils # 0.1 Nucleated Red Blood Cells # 0.0 Sodium Level 140 Potassium Level 4.3 Chloride Level 98 Carbon Dioxide Level 31 Anion Gap 15 Blood Urea Nitrogen 38 H Creatinine 0.90 Glucose Level 60 #L Calcium Level 9.0 Test 08/12/16 12:26 Bedside Glucose 74 Medications Medications Current Medications Ondansetron HCl (Zofran Inj) 4 mg Q6H PRN IV NAUSEA AND/OR VOMITING; Start at 20:30 Morphine Sulfate (morphine) 2 mg Q4H PRN IV PAIN LEVEL 7-10; Start 08/06/16 at 20:30 Enoxaparin Sodium (Lovenox) 30 mg DAILY SC Last administered on 08/12/16 09:37 ; Admin Dose 30 MG; Start 08/07/16 at 09:00 Miscellaneous Information 1 ea NOTE XX ; Start 08/06/16 at 20:30 Diagnostic Test (Pha) (Accu-Chek) 1 ea 02 XX Last administered on 08/11/16 01: 49; Admin Dose 1 EA; Start 08/07/16 at 02:00 Miscellaneous Information 1 ea NOTE XX ; Start 08/06/16 at 20:30 Glucose (Glutose) 15 gm Q15M PRN PO DECREASED GLUCOSE; Start 08/06/16 at 20:30 Glucose (Glutose) 22.5 gm Q15M PRN PO DECREASED GLUCOSE; Start 08/06/16 at 20: 30 Dextrose (D50w Syringe) 25 ml Q15M PRN IV DECREASED GLUCOSE; Start 08/06/16 at 20:30 Dextrose (D50w Syringe) 50 ml Q15M PRN IV DECREASED GLUCOSE; Start 08/06/16 at 20:30 Glucagon (Glucagen) 1 mg Q15M PRN IM DECREASED GLUCOSE; Start 08/06/16 at 20:30 Glucose (Glutose) 15 gm Q15M PRN BUCCAL DECREASED GLUCOSE; Start 08/06/16 at 20 :30 Aripiprazole (Abilify) 10 mg DAILY PO Last administered on 08/12/16 09:34; Admin Dose 10 MG; Start 08/08/16 at 09:00 Atorvastatin Calcium (Lipitor) 40 mg HS PO Last administered on 08/11/16 21:19 ; Admin Dose 40 MG; Start 08/07/16 at 21:00 Brimonidine Tartrate (Alphagan P 0.15%) 1 drop BID BOTH EYES Last administered on 08/12/16 09:36; Admin Dose 1 DROP; Start 08/07/16 at 21:00 Metoprolol Succinate (Toprol Xl) 100 mg DAILY PO Last administered on 09:36; Admin Dose 100 MG; Start 08/08/16 at 09:00 Sertraline HCl (Zoloft) 50 mg DAILY PO Last administered on 08/12/16 09:34; Admin Dose 50 MG; Start 08/08/16 at 09:00 Pantoprazole Sodium (Protonix) 20 mg BID@06,18 PO Last administered on 05:22; Admin Dose 20 MG; Start 08/07/16 at 18:00 Empaglifozin (Jardiance) 25 mg DAILY@08 PO Last administered on 08/12/16 09:35 ; Admin Dose 25 MG; Start 08/08/16 at 08:00 Linagliptin (Tradjenta) 5 mg DAILY@08 PO Last administered on 08/12/16 09:35; Admin Dose 5 MG; Start 08/08/16 at 08:00 Nitroglycerin (Nitroglycerin (Sl Tab) 0.4 Mg) 1 tab Q5M PRN SL ANGINA; Start at 20:00 Insulin Glargine (Lantus) 45 unit DAILY@08 SC Last administered on 08/12/16 08 :44; Admin Dose 45 UNIT; Start 08/09/16 at 08:00 Insulin Human NPH (Humulin N) 38 unit DAILY@20 SC Last administered on 22:53; Admin Dose 38 UNIT; Start 08/08/16 at 20:00 Amlodipine Besylate (Norvasc) 10 mg DAILY PO ; Start 08/12/16 at 13:30; Status UNV Losartan Potassium (Cozaar) 100 mg DAILY PO ; Start 08/12/16 at 13:30; Status UNV IVA TENORIO MD August 12, 2016 13:30
[2016-08-12] MEDS: LOSARTAN 50 MG TAB PO SCH (14:55)
[2016-08-12] MEDS: AMLODIPINE 10 MG TAB PO SCH (14:56)
--- NOTE | 2016-08-12 17:00 | PN ---
Date/Time of Note Date/Time of Note DATE: 08/12/16 TIME: 16:59 Assessment/Plan VTE Prophylaxis VTE Prophylaxis Intervention: SCD's Lines/Catheters IV [facility] Type (from [facility] Saline Lock Urinary Cath still in place: No Assessment/Plan Assessment/Plan 1. Diastolic acute on chronic congestive heart failure exacerbation. Continue Lasix IV. Dr. Cota is following patient. Cardiology consultation. Continue to monitor electrolytes. 2. Hypertension. Continue Toprol. 3. Hyperkalemia, resolved. 4. Bilateral lower extremity edema secondary to change in CHF. Bilateral lower extremities ultrasound is negative for deep venous thrombosis. 5. Diabetes mellitus type 2. - per Dr. Bartholomew in endocrinology consultation. Continue Lantus NPH and NovoLog. 6. Acute on chronic kidney disease. Continue to monitor BUN and creatinine. 7. Rule out acute coronary syndrome, status post stress test. 8. Hyperlipidemia. Continue statin. 9. Morbid obesity with BMI 50. - dietary consult Continue Lovenox for deep venous thrombosis prophylaxis and Pepcid for peptic ulcer disease prophylaxis. Further recommendations based on clinical course. Plan of care discussed with Dr. Garza. Subjective 24 Hr Interval Summary Constitutional: no complaints Eyes: no complaints Exam/Review of Systems Vital Signs Vitals Vital Signs Date Time Temp Pulse Resp B/P Pulse Ox O2 Delivery O2 Flow Rate FiO2 08/12/16 16:24 64 08/12/16 15:42 97.9 18 119/52 98 08/12/16 08:00 2.0 08/09/16 20:00 Nasal Cannula Intake and Output 08/11/16 08/11/16 08/12/16 15:00 23:00 07:00 Intake Total 1100 ml 1000 ml Balance 1100 ml 1000 ml Exam Constitutional: alert, obese, well developed Eyes: nl conjunctiva ENMT: nl external ears & nose Respiratory: clear to auscultation Cardiovascular: nl pulses Gastrointestinal: non-tender, soft Musculoskeletal: nl extremities to inspection Results Result Diagram: 08/12/16 0730 08/12/16 0730 Results 24 hrs Laboratory Tests Test 08/11/16 21:18 08/12/16 07:30 08/12/16 08:12 08/12/16 12:26 Bedside Glucose 83 79 74 White Blood Count 11.3 H Red Blood Count 5.35 Hemoglobin 12.7 Hematocrit 43.8 Mean Corpuscular Volume 81.9 L Mean Corpuscular Hemoglobin 23.7 L Mean Corpuscular Hemoglobin Concent 29.0 L Red Cell Distribution Width 21.0 H Platelet Count 366 Mean Platelet Volume 8.9 Neutrophils % 77.3 H Lymphocytes % 13.7 L Monocytes % 5.6 Eosinophils % 2.7 Basophils % 0.4 Nucleated Red Blood Cells % 0.0 Neutrophils # 8.7 H Lymphocytes # 1.6 Monocytes # 0.6 Eosinophils # 0.3 Basophils # 0.1 Nucleated Red Blood Cells # 0.0 Sodium Level 140 Potassium Level 4.3 Chloride Level 98 Carbon Dioxide Level 31 Anion Gap 15 Blood Urea Nitrogen 38 H Creatinine 0.90 Glucose Level 60 #L Calcium Level 9.0 Test 08/12/16 14:47 08/12/16 15:06 08/12/16 15:21 Bedside Glucose 65 L 60 L 93 Medications Medications Current Medications Ondansetron HCl (Zofran Inj) 4 mg Q6H PRN IV NAUSEA AND/OR VOMITING; Start at 20:30 Morphine Sulfate (morphine) 2 mg Q4H PRN IV PAIN LEVEL 7-10; Start 08/06/16 at 20:30 Enoxaparin Sodium (Lovenox) 30 mg DAILY SC Last administered on 08/12/16 09:37 ; Admin Dose 30 MG; Start 08/07/16 at 09:00 Miscellaneous Information 1 ea NOTE XX ; Start 08/06/16 at 20:30 Diagnostic Test (Pha) (Accu-Chek) 1 ea 02 XX Last administered on 08/11/16 01: 49; Admin Dose 1 EA; Start 08/07/16 at 02:00 Miscellaneous Information 1 ea NOTE XX ; Start 08/06/16 at 20:30 Glucose (Glutose) 15 gm Q15M PRN PO DECREASED GLUCOSE; Start 08/06/16 at 20:30 Glucose (Glutose) 22.5 gm Q15M PRN PO DECREASED GLUCOSE; Start 08/06/16 at 20: 30 Dextrose (D50w Syringe) 25 ml Q15M PRN IV DECREASED GLUCOSE; Start 08/06/16 at 20:30 Dextrose (D50w Syringe) 50 ml Q15M PRN IV DECREASED GLUCOSE; Start 08/06/16 at 20:30 Glucagon (Glucagen) 1 mg Q15M PRN IM DECREASED GLUCOSE; Start 08/06/16 at 20:30 Glucose (Glutose) 15 gm Q15M PRN BUCCAL DECREASED GLUCOSE; Start 08/06/16 at 20 :30 Aripiprazole (Abilify) 10 mg DAILY PO Last administered on 08/12/16 09:34; Admin Dose 10 MG; Start 08/08/16 at 09:00 Atorvastatin Calcium (Lipitor) 40 mg HS PO Last administered on 08/11/16 21:19 ; Admin Dose 40 MG; Start 08/07/16 at 21:00 Brimonidine Tartrate (Alphagan P 0.15%) 1 drop BID BOTH EYES Last administered on 08/12/16 09:36; Admin Dose 1 DROP; Start 08/07/16 at 21:00 Metoprolol Succinate (Toprol Xl) 100 mg DAILY PO Last administered on 09:36; Admin Dose 100 MG; Start 08/08/16 at 09:00 Sertraline HCl (Zoloft) 50 mg DAILY PO Last administered on 08/12/16 09:34; Admin Dose 50 MG; Start 08/08/16 at 09:00 Pantoprazole Sodium (Protonix) 20 mg BID@06,18 PO Last administered on 05:22; Admin Dose 20 MG; Start 08/07/16 at 18:00 Empaglifozin (Jardiance) 25 mg DAILY@08 PO Last administered on 08/12/16 09:35 ; Admin Dose 25 MG; Start 08/08/16 at 08:00 Linagliptin (Tradjenta) 5 mg DAILY@08 PO Last administered on 08/12/16 09:35; Admin Dose 5 MG; Start 08/08/16 at 08:00 Nitroglycerin (Nitroglycerin (Sl Tab) 0.4 Mg) 1 tab Q5M PRN SL ANGINA; Start at 20:00 Insulin Glargine (Lantus) 45 unit DAILY@08 SC Last administered on 08/12/16 08 :44; Admin Dose 45 UNIT; Start 08/09/16 at 08:00 Insulin Human NPH (Humulin N) 38 unit DAILY@20 SC Last administered on 22:53; Admin Dose 38 UNIT; Start 08/08/16 at 20:00 Amlodipine Besylate (Norvasc) 10 mg DAILY PO Last administered on 08/12/16 14: 56; Admin Dose 10 MG; Start 08/12/16 at 13:30 Losartan Potassium (Cozaar) 100 mg DAILY PO Last administered on 08/12/16 14: 55; Admin Dose 100 MG; Start 08/12/16 at 13:30 ENRRIQUE AGUILAR August 12, 2016 17:00
[2016-08-12] MEDS: ATORVASTATIN 40 MG TAB PO SCH (23:01)
[2016-08-12] MEDS: NPH, HUMAN INSULIN ISOPHANE 3ML VIAL SC SCH (23:05)
[2016-08-13] VITALS (13 sets, daily range): BP systolic 88–181; BP diastolic 47–75; PULSE 56–75; RESP 18–20
[2016-08-13] MEDS: ACCUCHECK AT 2AM (Patients on SS coverage) XX SCH (02:00)
[2016-08-13] MEDS: PANTOPRAZOLE SODIUM 20 MG TABEC PO SCH ×2 (06:06→17:51)
[2016-08-13] MEDS: FUROSEMIDE 20 MG TAB PO SCH ×2 (06:06→17:51)
[2016-08-13] MEDS: INSULIN ASPART [NOVOLOG] 3 ML PEN SC SCH ×7 (08:31→21:00)
[2016-08-13] MEDS: INSULIN GLARGINE [LANtus] 3 ML PEN SC SCH (08:33)
[2016-08-13] MEDS: [UNRECOGNIZED DRUG - OTHER] SC SCH ×3 (08:35→17:50)
[2016-08-13] MEDS: ENOXAPARIN 30 MG/0.3 ML SYG SC SCH (08:35)
[2016-08-13] MEDS: AMLODIPINE 10 MG TAB PO SCH (08:36)
[2016-08-13] MEDS: METOPROLOL (XL) 100 MG TAB PO SCH (08:37)
[2016-08-13] MEDS: SERTRALINE 50 MG TAB PO SCH (08:37)
[2016-08-13] MEDS: LINAGLIPTIN 5 MG TABLET PO SCH (08:37)
[2016-08-13] MEDS: ARIPIPRAZOLE 10 MG TAB PO SCH (08:37)
[2016-08-13] MEDS: LOSARTAN 50 MG TAB PO SCH (08:40)
[2016-08-13] MEDS: BRIMONIDINE 0.15% 5 ML OPH BOTH EYES SCH ×2 (08:40→21:28)
[2016-08-13] MEDS: EMPAGLIFLOZIN 10 MG TABLET PO SCH (08:40)
--- NOTE | 2016-08-13 10:04 | CONS ---
Date/Time of Note Date/Time of Note DATE: 08/13/16 TIME: 10:03 Assessment/Plan Assessment/Plan Additional Assessment/Plan Atypical chest pain Morbid Obesity CHF Abnormal electrocardiogram Hypertensive urgency Diabetes mellitus Anemia. Hemodynamically stable Stress test no myocardial ischemia Continue Toprol Off Imdur off Plavix Continue losartan and Norvasc Continue Lipitor Continue Insulin. Consultation Date/Type/Reason Admit Date/Time August 06, 2016 at 19:45 Initial Consult Date 08/08/16 Type of Consultation: endocrinology Referring Provider: MADHU CAZARES Exam/Review of Systems Vital Signs Vitals Vital Signs Date Time Temp Pulse Resp B/P Pulse Ox O2 Delivery O2 Flow Rate FiO2 08/13/16 08:11 71 08/13/16 04:05 97.6 18 181/75 97 08/12/16 20:00 2.0 08/09/16 20:00 Nasal Cannula Intake and Output 08/12/16 08/12/16 08/13/16 15:00 23:00 07:00 Intake Total 800 ml 850 ml Balance 800 ml 850 ml Exam Constitutional: alert, oriented Psych: no complaints Head: atraumatic, normocephalic Respiratory: clear to auscultation Cardiovascular: regular rate and rhythm Gastrointestinal: nl liver, spleen, non-tender, soft Extremities: normal pulses Results Result Diagram: 08/12/16 0730 08/12/16 0730 Results 24 hrs Laboratory Tests Test 08/12/16 12:26 08/12/16 14:47 08/12/16 15:06 08/12/16 15:21 Bedside Glucose 74 65 L 60 L 93 Test 08/12/16 17:32 08/12/16 21:27 08/13/16 01:48 08/13/16 08:03 Bedside Glucose 86 182 198 179 Medications Medications Current Medications Ondansetron HCl (Zofran Inj) 4 mg Q6H PRN IV NAUSEA AND/OR VOMITING; Start at 20:30 Morphine Sulfate (morphine) 2 mg Q4H PRN IV PAIN LEVEL 7-10; Start 08/06/16 at 20:30 Enoxaparin Sodium (Lovenox) 30 mg DAILY SC Last administered on 08/13/16t 08:35 ; Admin Dose 30 MG; Start 08/07/16 at 09:00 Miscellaneous Information 1 ea NOTE XX ; Start 08/06/16 at 20:30 Diagnostic Test (Pha) (Accu-Chek) 1 ea 02 XX Last administered on 08/11/16 01: 49; Admin Dose 1 EA; Start 08/07/16 at 02:00 Miscellaneous Information 1 ea NOTE XX ; Start 08/06/16 at 20:30 Glucose (Glutose) 15 gm Q15M PRN PO DECREASED GLUCOSE; Start 08/06/16 at 20:30 Glucose (Glutose) 22.5 gm Q15M PRN PO DECREASED GLUCOSE; Start 08/06/16 at 20: 30 Dextrose (D50w Syringe) 25 ml Q15M PRN IV DECREASED GLUCOSE; Start 08/06/16 at 20:30 Dextrose (D50w Syringe) 50 ml Q15M PRN IV DECREASED GLUCOSE; Start 08/06/16 at 20:30 Glucagon (Glucagen) 1 mg Q15M PRN IM DECREASED GLUCOSE; Start 08/06/16 at 20:30 Glucose (Glutose) 15 gm Q15M PRN BUCCAL DECREASED GLUCOSE; Start 08/06/16 at 20 :30 Aripiprazole (Abilify) 10 mg DAILY PO Last administered on 08/13/16 08:37; Admin Dose 10 MG; Start 08/08/16 at 09:00 Atorvastatin Calcium (Lipitor) 40 mg HS PO Last administered on 08/12/16 23:01 ; Admin Dose 40 MG; Start 08/07/16 at 21:00 Brimonidine Tartrate (Alphagan P 0.15%) 1 drop BID BOTH EYES Last administered on 08/13/16 08:40; Admin Dose 1 DROP; Start 08/07/16 at 21:00 Metoprolol Succinate (Toprol Xl) 100 mg DAILY PO Last administered on 08:37; Admin Dose 100 MG; Start 08/08/16 at 09:00 Sertraline HCl (Zoloft) 50 mg DAILY PO Last administered on 08/13/16 08:37; Admin Dose 50 MG; Start 08/08/16 at 09:00 Pantoprazole Sodium (Protonix) 20 mg BID@06,18 PO Last administered on 06:06; Admin Dose 20 MG; Start 08/07/16 at 18:00 Empaglifozin (Jardiance) 25 mg DAILY@08 PO Last administered on 08/13/16 08:40 ; Admin Dose 25 MG; Start 08/08/16 at 08:00 Linagliptin (Tradjenta) 5 mg DAILY@08 PO Last administered on 08/13/16 08:37; Admin Dose 5 MG; Start 08/08/16 at 08:00 Nitroglycerin (Nitroglycerin (Sl Tab) 0.4 Mg) 1 tab Q5M PRN SL ANGINA; Start at 20:00 Insulin Glargine (Lantus) 45 unit DAILY@08 SC Last administered on 08/13/16 08 :33; Admin Dose 45 UNIT; Start 08/09/16 at 08:00 Amlodipine Besylate (Norvasc) 10 mg DAILY PO Last administered on 08/13/16 08: 36; Admin Dose 10 MG; Start 08/12/16 at 13:30 Losartan Potassium (Cozaar) 100 mg DAILY PO Last administered on 08/13/16 08: 40; Admin Dose 100 MG; Start 08/12/16 at 13:30 Insulin Human NPH (Humulin N) 28 unit DAILY@20 SC Last administered on 23:05; Admin Dose 28 UNIT; Start 08/12/16 at 20:00 DAMION LARA M.D. August 13, 2016 10:04
--- NOTE | 2016-08-13 10:26 | PN ---
Date/Time of Note Date/Time of Note DATE: 08/13/16 TIME: 10:24 Assessment/Plan VTE Prophylaxis VTE Prophylaxis Intervention: other Lines/Catheters IV [facility]ter Type (from [facility] Saline Lock Urinary Cath still in place: No Assessment/Plan Assessment/Plan - Diastolic acute on chronic congestive heart failure exacerbation. Continue Lasix IV. - per Dr. Cota in Cardiology consultation. - Continue to monitor electrolytes. - Hypertension. Continue Toprol. - Bilateral lower extremity edema secondary to change in CHF. Bilateral lower extremities ultrasound is negative for deep venous thrombosis. - Diabetes mellitus type 2. - per Dr. Bartholomew in endocrinology consultation. Continue Lantus NPH and NovoLog. - Acute on chronic kidney disease. Continue to monitor BUN and creatinine. - Rule out acute coronary syndrome, status post stress test. - Hyperlipidemia. Continue statin. - Morbid obesity with BMI 50. - dietary consult Continue Lovenox for deep venous thrombosis prophylaxis and Pepcid for peptic ulcer disease prophylaxis. Further recommendations based on clinical course. Plan of care discussed with Dr. Garza. Subjective 24 Hr Interval Summary Respiratory: shortness of breath Cardiovascular: no complaints Gastrointestinal: no complaints Genitourinary: no complaints Musculoskeletal: no complaints Skin: no complaints Exam/Review of Systems Vital Signs Vitals Vital Signs Date Time Temp Pulse Resp B/P Pulse Ox O2 Delivery O2 Flow Rate FiO2 08/13/16 08:11 71 08/13/16 04:05 97.6 18 181/75 97 08/12/16 20:00 2.0 08/09/16 20:00 Nasal Cannula Intake and Output 08/12/16 08/12/16 08/13/16 15:00 23:00 07:00 Intake Total 800 ml 850 ml Balance 800 ml 850 ml Exam Constitutional: alert, obese Psych: nl mood/affect Respiratory: diminished breath sounds (bilt at bases) Cardiovascular: nl pulses Gastrointestinal: non-tender, soft Musculoskeletal: nl extremities to inspection Extremities: normal pulses Neurological: nl mental status, nl speech Results Result Diagram: 08/12/16 0730 08/12/16 0730 Results 24 hrs Laboratory Tests Test 08/12/16 12:26 08/12/16 14:47 08/12/16 15:06 08/12/16 15:21 Bedside Glucose 74 65 L 60 L 93 Test 08/12/16 17:32 08/12/16 21:27 08/13/16 01:48 08/13/16 08:03 Bedside Glucose 86 182 198 179 Medications Medications Current Medications Ondansetron HCl (Zofran Inj) 4 mg Q6H PRN IV NAUSEA AND/OR VOMITING; Start at 20:30 Morphine Sulfate (morphine) 2 mg Q4H PRN IV PAIN LEVEL 7-10; Start 08/06/16 at 20:30 Enoxaparin Sodium (Lovenox) 30 mg DAILY SC Last administered on 08/13/16 08:35 ; Admin Dose 30 MG; Start 08/07/16 at 09:00 Miscellaneous Information 1 ea NOTE XX ; Start 08/06/16 at 20:30 Diagnostic Test (Pha) (Accu-Chek) 1 ea 02 XX Last administered on 08/11/16 01: 49; Admin Dose 1 EA; Start 08/07/16 at 02:00 Miscellaneous Information 1 ea NOTE XX ; Start 08/06/16 at 20:30 Glucose (Glutose) 15 gm Q15M PRN PO DECREASED GLUCOSE; Start 08/06/16 at 20:30 Glucose (Glutose) 22.5 gm Q15M PRN PO DECREASED GLUCOSE; Start 08/06/16 at 20: 30 Dextrose (D50w Syringe) 25 ml Q15M PRN IV DECREASED GLUCOSE; Start 08/06/16 at 20:30 Dextrose (D50w Syringe) 50 ml Q15M PRN IV DECREASED GLUCOSE; Start 08/06/16 at 20:30 Glucagon (Glucagen) 1 mg Q15M PRN IM DECREASED GLUCOSE; Start 08/06/16 at 20:30 Glucose (Glutose) 15 gm Q15M PRN BUCCAL DECREASED GLUCOSE; Start 08/06/16 at 20 :30 Aripiprazole (Abilify) 10 mg DAILY PO Last administered on 08/13/16 08:37; Admin Dose 10 MG; Start 08/08/16 at 09:00 Atorvastatin Calcium (Lipitor) 40 mg HS PO Last administered on 08/12/16 23:01 ; Admin Dose 40 MG; Start 08/07/16 at 21:00 Brimonidine Tartrate (Alphagan P 0.15%) 1 drop BID BOTH EYES Last administered on 08/13/16 08:40; Admin Dose 1 DROP; Start 08/07/16 at 21:00 Metoprolol Succinate (Toprol Xl) 100 mg DAILY PO Last administered on 08:37; Admin Dose 100 MG; Start 08/08/16 at 09:00 Sertraline HCl (Zoloft) 50 mg DAILY PO Last administered on 08/13/16 08:37; Admin Dose 50 MG; Start 08/08/16 at 09:00 Pantoprazole Sodium (Protonix) 20 mg BID@06,18 PO Last administered on 06:06; Admin Dose 20 MG; Start 08/07/16 at 18:00 Empaglifozin (Jardiance) 25 mg DAILY@08 PO Last administered on 08/13/16 08:40 ; Admin Dose 25 MG; Start 08/08/16 at 08:00 Linagliptin (Tradjenta) 5 mg DAILY@08 PO Last administered on 08/13/16 08:37; Admin Dose 5 MG; Start 08/08/16 at 08:00 Nitroglycerin (Nitroglycerin (Sl Tab) 0.4 Mg) 1 tab Q5M PRN SL ANGINA; Start at 20:00 Insulin Glargine (Lantus) 45 unit DAILY@08 SC Last administered on 08/13/16 08 :33; Admin Dose 45 UNIT; Start 08/09/16 at 08:00 Amlodipine Besylate (Norvasc) 10 mg DAILY PO Last administered on 08/13/16 08: 36; Admin Dose 10 MG; Start 08/12/16 at 13:30 Losartan Potassium (Cozaar) 100 mg DAILY PO Last administered on 08/13/16 08: 40; Admin Dose 100 MG; Start 08/12/16 at 13:30 Insulin Human NPH (Humulin N) 28 unit DAILY@20 SC Last administered on 23:05; Admin Dose 28 UNIT; Start 08/12/16 at 20:00 ENRRIQUE AGUILAR August 13, 2016 10:26
--- NOTE | 2016-08-13 11:06 | CONS ---
Date/Time of Note Date/Time of Note DATE: 08/13/16 TIME: 11:01 Assessment/Plan Assessment/Plan Problems: (1) Diastolic dysfunction with acute on chronic heart failure Status: Chronic Comment: As per cardiology. Note that amlodipine may not be as apprpriate due to fluid retention (2) DM w/o complication type II, uncontrolled Status: Chronic Comment: Adequate control (3) Morbid obesity with BMI of 45.0-49.9, adult Status: Chronic Comment: Counselled (4) Hypertension Status: Acute Comment: change regimen for less fluid retention (5) Sleep apnea Status: Acute Comment: Nocturnal Bipap Qualifiers: Sleep apnea type: obstructive Qualified Code: G47.33 - Obstructive sleep apnea syndrome Consultation Date/Type/Reason Admit Date/Time August 06, 2016 at 19:45 Initial Consult Date 08/08/16 Type of Consultation: endocrinology Reason for Consultation DM2; Morbid Obesity; DAVID Referring Provider: MADHU CAZARES 24 HR Interval Summary Free Text/Dictation Patient sleepin in bed, easily awakened; (see physical exam) Exam/Review of Systems Vital Signs Vitals Vital Signs Date Time Temp Pulse Resp B/P Pulse Ox O2 Delivery O2 Flow Rate FiO2 08/13/16 08:11 71 08/13/16 04:05 97.6 18 181/75 97 08/12/16 20:00 2.0 08/09/16 20:00 Nasal Cannula Intake and Output 08/12/16 08/12/16 08/13/16 15:00 23:00 07:00 Intake Total 800 ml 850 ml Balance 800 ml 850 ml Exam snoring with witnessed apneic spells!!! Constitutional: alert, oriented Neck: non-tender, supple Respiratory: clear to auscultation, normal air movement Cardiovascular: nl pulses, regular rate and rhythm Results Result Diagram: 08/12/16 0730 08/12/16 0730 Results 24 hrs Laboratory Tests Test 08/12/16 12:26 08/12/16 14:47 08/12/16 15:06 08/12/16 15:21 Bedside Glucose 74 65 L 60 L 93 Test 08/12/16 17:32 08/12/16 21:27 08/13/16 01:48 08/13/16 08:03 Bedside Glucose 86 182 198 179 Medications Medications Current Medications Ondansetron HCl (Zofran Inj) 4 mg Q6H PRN IV NAUSEA AND/OR VOMITING; Start at 20:30 Morphine Sulfate (morphine) 2 mg Q4H PRN IV PAIN LEVEL 7-10; Start 08/06/16 at 20:30 Enoxaparin Sodium (Lovenox) 30 mg DAILY SC Last administered on 08/13/16 08:35 ; Admin Dose 30 MG; Start 08/07/16 at 09:00 Miscellaneous Information 1 ea NOTE XX ; Start 08/06/16 at 20:30 Diagnostic Test (Pha) (Accu-Chek) 1 ea 02 XX Last administered on 08/11/16 01: 49; Admin Dose 1 EA; Start 08/07/16 at 02:00 Miscellaneous Information 1 ea NOTE XX ; Start 08/06/16 at 20:30 Glucose (Glutose) 15 gm Q15M PRN PO DECREASED GLUCOSE; Start 08/06/16 at 20:30 Glucose (Glutose) 22.5 gm Q15M PRN PO DECREASED GLUCOSE; Start 08/06/16 at 20: 30 Dextrose (D50w Syringe) 25 ml Q15M PRN IV DECREASED GLUCOSE; Start 08/06/16 at 20:30 Dextrose (D50w Syringe) 50 ml Q15M PRN IV DECREASED GLUCOSE; Start 08/06/16 at 20:30 Glucagon (Glucagen) 1 mg Q15M PRN IM DECREASED GLUCOSE; Start 08/06/16 at 20:30 Glucose (Glutose) 15 gm Q15M PRN BUCCAL DECREASED GLUCOSE; Start 08/06/16 at 20 :30 Aripiprazole (Abilify) 10 mg DAILY PO Last administered on 08/13/16 08:37; Admin Dose 10 MG; Start 08/08/16 at 09:00 Atorvastatin Calcium (Lipitor) 40 mg HS PO Last administered on 08/12/16 23:01 ; Admin Dose 40 MG; Start 08/07/16 at 21:00 Brimonidine Tartrate (Alphagan P 0.15%) 1 drop BID BOTH EYES Last administered on 08/13/16 08:40; Admin Dose 1 DROP; Start 08/07/16 at 21:00 Sertraline HCl (Zoloft) 50 mg DAILY PO Last administered on 08/13/16 08:37; Admin Dose 50 MG; Start 08/08/16 at 09:00 Pantoprazole Sodium (Protonix) 20 mg BID@06,18 PO Last administered on 06:06; Admin Dose 20 MG; Start 08/07/16 at 18:00 Empaglifozin (Jardiance) 25 mg DAILY@08 PO Last administered on 08/13/16 08:40 ; Admin Dose 25 MG; Start 08/08/16 at 08:00 Linagliptin (Tradjenta) 5 mg DAILY@08 PO Last administered on 08/13/16 08:37; Admin Dose 5 MG; Start 08/08/16 at 08:00 Nitroglycerin (Nitroglycerin (Sl Tab) 0.4 Mg) 1 tab Q5M PRN SL ANGINA; Start at 20:00 Insulin Glargine (Lantus) 45 unit DAILY@08 SC Last administered on 08/13/16 08 :33; Admin Dose 45 UNIT; Start 08/09/16 at 08:00 Losartan Potassium (Cozaar) 100 mg DAILY PO Last administered on 08/13/16 08: 40; Admin Dose 100 MG; Start 08/12/16 at 13:30 Insulin Human NPH (Humulin N) 28 unit DAILY@20 SC Last administered on 23:05; Admin Dose 28 UNIT; Start 08/12/16 at 20:00 Amlodipine Besylate (Norvasc) 5 mg DAILY PO ; Start 08/14/16 at 09:00; Status UNV Metoprolol Succinate (Toprol Xl) 50 mg BID PO ; Start 08/13/16 at 21:00; Status IVA LOPEZ MD August 13, 2016 11:06
[2016-08-13] MEDS: ATORVASTATIN 40 MG TAB PO SCH (21:27)
[2016-08-13] MEDS: METOPROLOL (XL) 50 MG TAB PO SCH (21:27)
[2016-08-13] MEDS: NPH, HUMAN INSULIN ISOPHANE 3ML VIAL SC SCH (21:29)
[2016-08-14] VITALS (16 sets, daily range): BP systolic 101–126; BP diastolic 49–58; PULSE 54–72; RESP 18–21
[2016-08-14] MEDS: ACCUCHECK AT 2AM (Patients on SS coverage) XX SCH (02:00)
[2016-08-14] MEDS: FUROSEMIDE 20 MG TAB PO SCH ×2 (05:48→17:48)
[2016-08-14] MEDS: PANTOPRAZOLE SODIUM 20 MG TABEC PO SCH ×2 (05:48→17:47)
[2016-08-14] MEDS: LINAGLIPTIN 5 MG TABLET PO SCH (08:19)
[2016-08-14] MEDS: EMPAGLIFLOZIN 10 MG TABLET PO SCH (08:19)
[2016-08-14] MEDS: ARIPIPRAZOLE 10 MG TAB PO SCH (08:21)
[2016-08-14] MEDS: SERTRALINE 50 MG TAB PO SCH (08:21)
[2016-08-14] MEDS: AMLODIPINE 2.5 MG TAB PO SCH (08:21)
[2016-08-14] MEDS: LOSARTAN 50 MG TAB PO SCH (08:21)
[2016-08-14] MEDS: METOPROLOL (XL) 50 MG TAB PO SCH ×2 (08:22→20:11)
[2016-08-14] MEDS: INSULIN ASPART [NOVOLOG] 3 ML PEN SC SCH ×7 (08:23→20:10)
[2016-08-14] MEDS: ENOXAPARIN 30 MG/0.3 ML SYG SC SCH (08:25)
[2016-08-14] MEDS: INSULIN GLARGINE [LANtus] 3 ML PEN SC SCH (08:26)
[2016-08-14] MEDS: BRIMONIDINE 0.15% 5 ML OPH BOTH EYES SCH ×2 (08:28→20:47)
[2016-08-14 08:29] LABS: ADD SCAN DIFF NO
[2016-08-14 08:35] LABS: BASOPHILS % 0.4 % (0.0-2.0); EOSINOPHILS # 0.3 10^3/ul (0.0-0.5); EOSINOPHILS % 2.4 % (0.0-7.0); HEMATOCRIT 38.6 % (37.0-47.0); HEMOGLOBIN 11.4 g/dl (12.0-16.0); LYMPHOCYTES # 1.3 10^3/ul (0.8-2.9); MEAN CORPUSCULAR HEMOGLOBIN 23.8 pg (29.0-33.0); MEAN CORPUSCULAR HGB CONC 29.5 g/dl (32.0-37.0); MEAN CORPUSCULAR VOLUME 80.6 fl (82.0-101.0); MEAN PLATELET VOLUME 8.7 fl (7.4-10.4); MONOCYTE # 0.6 10^3/ul (0.3-0.9); MONOCYTES % 5.7 % (0.0-11.0); NEUTROPHIL # 8.6 10^3/ul (1.6-7.5); NEUTROPHILS % 79.1 % (39.0-77.0); PLATELET COUNT 319 10^3/UL (140-415); RED BLOOD COUNT 4.79 10^6/ul (4.20-5.40); RED CELL DISTRIBUTION WIDTH 19.9 % (11.5-14.5); WHITE BLOOD COUNT 10.9 10^3/ul (4.8-10.8)
[2016-08-14] MEDS: [UNRECOGNIZED DRUG - OTHER] SC SCH ×3 (08:39→17:58)
[2016-08-14 08:58] LABS: CREATININE 1.44 mg/dl (0.44-1.00); POTASSIUM 4.1 mmol/L (3.5-5.1)
[2016-08-14] MEDS ORDERED: AMLODIPINE 5 MG TAB PO SCH (09:00)
--- NOTE | 2016-08-14 10:33 | CONS ---
Date/Time of Note Date/Time of Note DATE: 08/14/16 TIME: 10:31 Assessment/Plan Assessment/Plan Additional Assessment/Plan Assessment and recommendations; 1. Patient admitted for shortness of breath due to mild CHF exacerbation due to diastolic dysfunction, clinically markedly improved. 2. Underlying hypertension and diabetes. 3. Morbid obesity. 4. Possibly underlying sleep apnea as well. 5. Currently no evidence of any exertional hypoxemia. 6. Status post negative nuclear cardiac SPECT test. Continue current treatment. Patient can be discharged home. Consultation Date/Type/Reason Admit Date/Time August 06, 2016 at 19:45 Initial Consult Date 08/08/16 Type of Consultation: Pulmonary Referring Provider: MADHU CAZARES 24 HR Interval Summary Free Text/Dictation Patient condition is stable. Denies any shortness of breath, chest pain. Patient has been ambulatory. Chest examination; diminished but clear vessel. S1-S2 audible, no murmurs. Regular rhythm. Abdomen examination; soft, protuberant. No organomegaly. Bowel sounds audible. Extremity examination; no peripheral edema. Pulses 2+ bilaterally. 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 Exam/Review of Systems Vital Signs Vitals Vital Signs Date Time Temp Pulse Resp B/P Pulse Ox O2 Delivery O2 Flow Rate FiO2 08/14/16 08:30 55 08/14/16 08:00 Nasal Cannula 2.0 08/14/16 07:36 98.1 21 126/58 96 08/14/16 05:07 30 Intake and Output 08/13/16 08/13/16 08/14/16 15:00 23:00 07:00 Intake Total 1040 ml 800 ml 900 ml Balance 1040 ml 800 ml 900 ml Results Result Diagram: 08/14/16 0810 08/14/16 0810 Results 24 hrs Laboratory Tests Test 08/13/16 12:01 08/13/16 12:54 08/13/16 14:48 08/13/16 17:20 Bedside Glucose 107 76 113 105 Test 08/13/16 21:24 08/14/16 01:56 08/14/16 07:57 08/14/16 08:10 Bedside Glucose 116 156 150 White Blood Count 10.9 H Red Blood Count 4.79 Hemoglobin 11.4 L Hematocrit 38.6 Mean Corpuscular Volume 80.6 L Mean Corpuscular Hemoglobin 23.8 L Mean Corpuscular Hemoglobin Concent 29.5 L Red Cell Distribution Width 19.9 H Platelet Count 319 Mean Platelet Volume 8.7 Neutrophils % 79.1 H Lymphocytes % 12.0 L Monocytes % 5.7 Eosinophils % 2.4 Basophils % 0.4 Nucleated Red Blood Cells % 0.0 Neutrophils # 8.6 H Lymphocytes # 1.3 Monocytes # 0.6 Eosinophils # 0.3 Basophils # 0.0 Nucleated Red Blood Cells # 0.0 Sodium Level 136 Potassium Level 4.1 Chloride Level 95 L Carbon Dioxide Level 33 H Anion Gap 12 Blood Urea Nitrogen 55 H Creatinine 1.44 H Glucose Level 160 Calcium Level 9.0 Medications Medications Current Medications Ondansetron HCl (Zofran Inj) 4 mg Q6H PRN IV NAUSEA AND/OR VOMITING; Start at 20:30 Morphine Sulfate (morphine) 2 mg Q4H PRN IV PAIN LEVEL 7-10; Start 08/06/16 at 20:30 Enoxaparin Sodium (Lovenox) 30 mg DAILY SC Last administered on 08/14/16 08:25 ; Admin Dose 30 MG; Start 08/07/16 at 09:00 Miscellaneous Information 1 ea NOTE XX ; Start 08/06/16 at 20:30 Diagnostic Test (Pha) (Accu-Chek) 1 ea 02 XX Last administered on 08/11/16 01: 49; Admin Dose 1 EA; Start 08/07/16 at 02:00 Miscellaneous Information 1 ea NOTE XX ; Start 08/06/16 at 20:30 Glucose (Glutose) 15 gm Q15M PRN PO DECREASED GLUCOSE; Start 08/06/16 at 20:30 Glucose (Glutose) 22.5 gm Q15M PRN PO DECREASED GLUCOSE; Start 08/06/16 at 20: 30 Dextrose (D50w Syringe) 25 ml Q15M PRN IV DECREASED GLUCOSE; Start 08/06/16 at 20:30 Dextrose (D50w Syringe) 50 ml Q15M PRN IV DECREASED GLUCOSE; Start 08/06/16 at 20:30 Glucagon (Glucagen) 1 mg Q15M PRN IM DECREASED GLUCOSE; Start 08/06/16 at 20:30 Glucose (Glutose) 15 gm Q15M PRN BUCCAL DECREASED GLUCOSE; Start 08/06/16 at 20 :30 Aripiprazole (Abilify) 10 mg DAILY PO Last administered on 08/14/16 08:21; Admin Dose 10 MG; Start 08/08/16 at 09:00 Atorvastatin Calcium (Lipitor) 40 mg HS PO Last administered on 08/13/16 21:27 ; Admin Dose 40 MG; Start 08/07/16 at 21:00 Brimonidine Tartrate (Alphagan P 0.15%) 1 drop BID BOTH EYES Last administered on 08/14/16 08:28; Admin Dose 1 DROP; Start 08/07/16 at 21:00 Sertraline HCl (Zoloft) 50 mg DAILY PO Last administered on 08/14/16 08:21; Admin Dose 50 MG; Start 08/08/16 at 09:00 Pantoprazole Sodium (Protonix) 20 mg BID@06,18 PO Last administered on 05:48; Admin Dose 20 MG; Start 08/07/16 at 18:00 Empaglifozin (Jardiance) 25 mg DAILY@08 PO Last administered on 08/14/16 08:19 ; Admin Dose 25 MG; Start 08/08/16 at 08:00 Linagliptin (Tradjenta) 5 mg DAILY@08 PO Last administered on 08/14/16 08:19; Admin Dose 5 MG; Start 08/08/16 at 08:00 Nitroglycerin (Nitroglycerin (Sl Tab) 0.4 Mg) 1 tab Q5M PRN SL ANGINA; Start at 20:00 Insulin Glargine (Lantus) 45 unit DAILY@08 SC Last administered on 08/14/16 08 :26; Admin Dose 45 UNIT; Start 08/09/16 at 08:00 Losartan Potassium (Cozaar) 100 mg DAILY PO Last administered on 08/14/16 08: 21; Admin Dose 100 MG; Start 08/12/16 at 13:30 Insulin Human NPH (Humulin N) 28 unit DAILY@20 SC Last administered on 21:29; Admin Dose 28 UNIT; Start 08/12/16 at 20:00 Metoprolol Succinate (Toprol Xl) 50 mg BID PO Last administered on 08/14/16 08 :22; Admin Dose 50 MG; Start 08/13/16 at 21:00 Amlodipine Besylate (Norvasc) 2.5 mg DAILY PO Last administered on 08/14/16 08 :21; Admin Dose 2.5 MG; Start 08/14/16 at 09:00 Hydralazine HCl (Apresoline) 50 mg TID PO Last administered on 08/14/16 08:28 ; Admin Dose 50 MG; Start 08/13/16 at 13:00 MIGUEL RIVERA August 14, 2016 10:33
--- NOTE | 2016-08-14 18:47 | PN ---
Date/Time of Note Date/Time of Note DATE: 08/14/16 TIME: 18:40 Assessment/Plan VTE Prophylaxis VTE Prophylaxis Intervention: SCD's Lines/Catheters IV [facility] Urinary Cath still in place: No Assessment/Plan Chief Complaint/Hosp Course ASSESSMENT AND PLAN: - Diastolic acute on chronic congestive heart failure exacerbation. Continue Lasix. Dr. Cota is following patient. Cardiology consultation. Continue to monitor electrolytes. - Possible sleep apnea, continue BiPAP. is following in pulmonology consultation - Hypertension. Continue Toprol and Norvasc. - Acute coronary syndrome ruled out, troponin negative 3, stress test with no ischemia - Bilateral lower extremity edema secondary to change in CHF. Bilateral lower extremities ultrasound is negative for deep venous thrombosis. - Diabetes mellitus type 2. Dr. Cole is following in endocrinology consultation. - Acute on chronic kidney disease. Continue to monitor BUN and creatinine. - Hyperlipidemia. Continue statin. - Morbid obesity with BMI 50. Weight loss advised. PT eval. Continue Lovenox for deep venous thrombosis prophylaxis and Pepcid for peptic ulcer disease prophylaxis. Further recommendations based on clinical course. Plan of care discussed with Dr. Garza. Problems: Subjective 24 Hr Interval Summary Free Text/Dictation Patient is more awake, denies shortness of breath, blood sugar is better controlled. Exam/Review of Systems Vital Signs Vitals Vital Signs Date Time Temp Pulse Resp B/P Pulse Ox O2 Delivery O2 Flow Rate FiO2 08/14/16 16:12 58 08/14/16 16:01 98.2 18 115/57 98 08/14/16 08:00 Nasal Cannula 2.0 08/14/16 05:07 30 Intake and Output 08/13/16 08/13/16 08/14/16 15:00 23:00 07:00 Intake Total 1040 ml 800 ml 900 ml Balance 1040 ml 800 ml 900 ml Exam Constitutional: alert, oriented Psych: no complaints Head: normocephalic Eyes: nl conjunctiva ENMT: nl external ears & nose Neck: non-tender, supple Respiratory: clear to auscultation, normal air movement Cardiovascular: nl pulses, regular rate and rhythm Gastrointestinal: soft Extremities: normal pulses 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 Results Result Diagram: 08/14/16 0810 08/14/16 0810 Results 24 hrs Laboratory Tests Test 08/13/16:24 08/14/16 01:56 08/14/16 07:57 08/14/16 08:10 Bedside Glucose 116 156 150 White Blood Count 10.9 H Red Blood Count 4.79 Hemoglobin 11.4 L Hematocrit 38.6 Mean Corpuscular Volume 80.6 L Mean Corpuscular Hemoglobin 23.8 L Mean Corpuscular Hemoglobin Concent 29.5 L Red Cell Distribution Width 19.9 H Platelet Count 319 Mean Platelet Volume 8.7 Neutrophils % 79.1 H Lymphocytes % 12.0 L Monocytes % 5.7 Eosinophils % 2.4 Basophils % 0.4 Nucleated Red Blood Cells % 0.0 Neutrophils # 8.6 H Lymphocytes # 1.3 Monocytes # 0.6 Eosinophils # 0.3 Basophils # 0.0 Nucleated Red Blood Cells # 0.0 Sodium Level 136 Potassium Level 4.1 Chloride Level 95 L Carbon Dioxide Level 33 H Anion Gap 12 Blood Urea Nitrogen 55 H Creatinine 1.44 H Glucose Level 160 Calcium Level 9.0 Test 08/14/16 12:18 08/14/16 17:48 Bedside Glucose 156 95 Medications Medications Current Medications Ondansetron HCl (Zofran Inj) 4 mg Q6H PRN IV NAUSEA AND/OR VOMITING; Start at 20:30 Morphine Sulfate (morphine) 2 mg Q4H PRN IV PAIN LEVEL 7-10; Start 08/06/16 at 20:30 Enoxaparin Sodium (Lovenox) 30 mg DAILY SC Last administered on 08/14/16 08:25 ; Admin Dose 30 MG; Start 08/07/16 at 09:00 Miscellaneous Information 1 ea NOTE XX ; Start 08/06/16 at 20:30 Diagnostic Test (Pha) (Accu-Chek) 1 ea 02 XX Last administered on 08/11/16 01: 49; Admin Dose 1 EA; Start 08/07/16 at 02:00 Miscellaneous Information 1 ea NOTE XX ; Start 08/06/16 at 20:30 Glucose (Glutose) 15 gm Q15M PRN PO DECREASED GLUCOSE; Start 08/06/16 at 20:30 Glucose (Glutose) 22.5 gm Q15M PRN PO DECREASED GLUCOSE; Start 08/06/16 at 20: 30 Dextrose (D50w Syringe) 25 ml Q15M PRN IV DECREASED GLUCOSE; Start 08/06/16 at 20:30 Dextrose (D50w Syringe) 50 ml Q15M PRN IV DECREASED GLUCOSE; Start 08/06/16 at 20:30 Glucagon (Glucagen) 1 mg Q15M PRN IM DECREASED GLUCOSE; Start 08/06/16 at 20:30 Glucose (Glutose) 15 gm Q15M PRN BUCCAL DECREASED GLUCOSE; Start 08/06/16 at 20 :30 Aripiprazole (Abilify) 10 mg DAILY PO Last administered on 08/14/16 08:21; Admin Dose 10 MG; Start 08/08/16 at 09:00 Atorvastatin Calcium (Lipitor) 40 mg HS PO Last administered on 08/13/16 21:27 ; Admin Dose 40 MG; Start 08/07/16 at 21:00 Brimonidine Tartrate (Alphagan P 0.15%) 1 drop BID BOTH EYES Last administered on 08/14/16 08:28; Admin Dose 1 DROP; Start 08/07/16 at 21:00 Sertraline HCl (Zoloft) 50 mg DAILY PO Last administered on 08/14/16 08:21; Admin Dose 50 MG; Start 08/08/16 at 09:00 Pantoprazole Sodium (Protonix) 20 mg BID@06,18 PO Last administered on 17:47; Admin Dose 20 MG; Start 08/07/16 at 18:00 Empaglifozin (Jardiance) 25 mg DAILY@08 PO Last administered on 08/14/16 08:19 ; Admin Dose 25 MG; Start 08/08/16 at 08:00 Linagliptin (Tradjenta) 5 mg DAILY@08 PO Last administered on 08/14/16 08:19; Admin Dose 5 MG; Start 08/08/16 at 08:00 Nitroglycerin (Nitroglycerin (Sl Tab) 0.4 Mg) 1 tab Q5M PRN SL ANGINA; Start at 20:00 Insulin Glargine (Lantus) 45 unit DAILY@08 SC Last administered on 08/14/16 08 :26; Admin Dose 45 UNIT; Start 08/09/16 at 08:00 Losartan Potassium (Cozaar) 100 mg DAILY PO Last administered on 08/14/16 08: 21; Admin Dose 100 MG; Start 08/12/16 at 13:30 Insulin Human NPH (Humulin N) 28 unit DAILY@20 SC Last administered on 21:29; Admin Dose 28 UNIT; Start 08/12/16 at 20:00 Metoprolol Succinate (Toprol Xl) 50 mg BID PO Last administered on 08/14/16 08 :22; Admin Dose 50 MG; Start 08/13/16 at 21:00 Amlodipine Besylate (Norvasc) 2.5 mg DAILY PO Last administered on 08/14/16 08 :21; Admin Dose 2.5 MG; Start 08/14/16 at 09:00 Hydralazine HCl (Apresoline) 50 mg TID PO Last administered on 08/14/16 12:24 ; Admin Dose 50 MG; Start 08/13/16 at 13:00 MADHU CAZARES August 14, 2016 18:47
--- NOTE | 2016-08-14 18:51 | CONS ---
Date/Time of Note Date/Time of Note DATE: 08/14/16 TIME: 18:49 Assessment/Plan Assessment/Plan Problems: (1) DM w/o complication type II, uncontrolled Status: Chronic Comment: Ongoing excellent glycemic control on current regimen. Cont. these insulin doses until d/c but on d/c needs to resume home insulin doses. Consultation Date/Type/Reason Admit Date/Time August 06, 2016 at 19:45 Initial Consult Date 08/08/16 Type of Consultation: Endocrinology Reason for Consultation T2DM OOC Referring Provider: MADHU CAZARES 24 HR Interval Summary Constitutional: improved, no complaints Detailed Summary Respiratory: no complaints Cardiovascular: no complaints Gastrointestinal: no complaints Genitourinary: no complaints Musculoskeletal: no complaints Neurologic: no complaints Exam/Review of Systems Vital Signs Vitals VS - Last 72 Hours, by Label Date Time Temp Pulse Resp B/P Pulse Ox O2 Delivery O2 Flow Rate FiO2 08/14/16 16:12 58 08/14/16 16:01 98.2 61 18 115/57 98 08/14/16 12:01 59 08/14/16 11:26 98.4 60 20 116/54 96 08/14/16 08:30 55 08/14/16 08:00 Nasal Cannula 2.0 08/14/16 07:36 98.1 65 21 126/58 96 08/14/16 05:52 2.0 08/14/16 05:07 69 98 30 08/14/16 04:15 98.1 56 18 101/49 96 08/14/16 04:11 54 08/14/16 02:05 72 98 30 08/14/16 01:03 62 99 30 08/14/16 00:20 59 08/13/16 23:58 98.1 66 20 109/52 99 08/13/16 22:38 3.0 08/13/16 22:37 75 96 30 08/13/16 20:25 97.6 58 18 104/47 96 08/13/16 20:19 59 08/13/16 18:14 98 3.0 08/13/16 16:22 58 08/13/16 16:00 98.4 57 109/51 100 Nasal Cannula 3.0 08/13/16 12:14 56 08/13/16 11:58 97.6 18 141/63 97 Nasal Cannula 2.5 08/13/16 08:11 71 08/13/16 08:00 Nasal Cannula 2.0 08/13/16 04:26 60 08/13/16 04:05 97.6 71 18 181/75 97 08/13/16 01:13 64 08/13/16 00:09 98.0 60 18 88/48 94 08/12/16 20:16 62 08/12/16 20:00 2.0 08/12/16 19:38 97.9 70 18 132/69 100 08/12/16 16:24 64 08/12/16 15:42 97.9 63 18 119/52 98 08/12/16 12:27 58 08/12/16 11:24 97.6 65 17 139/53 98 08/12/16 08:44 55 08/12/16 08:00 2.0 08/12/16 07:24 97.9 64 18 144/47 100 08/12/16 05:15 56 08/12/16 04:02 98.5 9 20 119/69 98 08/12/16 00:15 98.5 90 20 120/69 98 08/12/16 00:09 64 08/11/16 20:26 64 08/11/16 20:08 98.2 65 21 121/56 94 Vital Signs Date Time Temp Pulse Resp B/P Pulse Ox O2 Delivery O2 Flow Rate FiO2 08/14/16 16:12 58 08/14/16 16:01 98.2 18 115/57 98 08/14/16 08:00 Nasal Cannula 2.0 08/14/16 05:07 30 Intake and Output 08/13/16 08/13/16 08/14/16 15:00 23:00 07:00 Intake Total 1040 ml 800 ml 900 ml Balance 1040 ml 800 ml 900 ml Exam Constitutional: alert, obese, oriented Psych: nl mood/affect, no complaints Respiratory: clear to auscultation, normal air movement Cardiovascular: nl pulses, regular rate and rhythm, No edema, No murmurs/extra sounds, No rub Gastrointestinal: bowel sounds, nl liver, spleen, non-tender, soft, No mass, No rebound or guarding Musculoskeletal: nl extremities to inspection Extremities: normal pulses, No clubbing, No cyanosis, No edema 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, nl mental status, nl speech, nl strength Additional Comments Bedside Glucose - 72 Hours Test 08/11/16 21:18 08/12/16 08:12 08/12/16 12:26 08/12/16 14:47 Bedside Glucose 83mg/dL (70-220) 79mg/dL (70-220) 74mg/dL (70-220) 65mg/dL (70-220) L Test 08/12/16 15:06 08/12/16 15:21 08/12/16 17:32 08/12/16 21:27 Bedside Glucose 60mg/dL (70-220) L 93mg/dL (70-220) 86mg/dL (70-220) 182mg/dL (70-220) Test 08/13/16 01:48 08/13/16 08:03 08/13/16 12:01 08/13/16 12:54 Bedside Glucose 198mg/dL (70-220) 179mg/dL (70-220) 107mg/dL (70-220) 76mg/dL (70-220) Test 08/13/16 14:48 08/13/16 17:20 08/13/16 21:24 08/14/16 01:56 Bedside Glucose 113mg/dL (70-220) 105mg/dL (70-220) 116mg/dL (70-220) 156mg/dL (70-220) Test 08/14/16 07:57 08/14/16 12:18 08/14/16 17:48 Bedside Glucose 150mg/dL (70-220) 156mg/dL (70-220) 95mg/dL (70-220) Results Result Diagram: 08/14/16 0810 08/14/16 0810 Results 24 hrs Laboratory Tests Test 08/13/16 21:24 08/14/16 01:56 08/14/16 07:57 08/14/16 08:10 Bedside Glucose 116 156 150 White Blood Count 10.9 H Red Blood Count 4.79 Hemoglobin 11.4 L Hematocrit 38.6 Mean Corpuscular Volume 80.6 L Mean Corpuscular Hemoglobin 23.8 L Mean Corpuscular Hemoglobin Concent 29.5 L Red Cell Distribution Width 19.9 H Platelet Count 319 Mean Platelet Volume 8.7 Neutrophils % 79.1 H Lymphocytes % 12.0 L Monocytes % 5.7 Eosinophils % 2.4 Basophils % 0.4 Nucleated Red Blood Cells % 0.0 Neutrophils # 8.6 H Lymphocytes # 1.3 Monocytes # 0.6 Eosinophils # 0.3 Basophils # 0.0 Nucleated Red Blood Cells # 0.0 Sodium Level 136 Potassium Level 4.1 Chloride Level 95 L Carbon Dioxide Level 33 H Anion Gap 12 Blood Urea Nitrogen 55 H Creatinine 1.44 H Glucose Level 160 Calcium Level 9.0 Test 08/14/16 12:18 08/14/16 17:48 Bedside Glucose 156 95 Medications Medications Current Medications Ondansetron HCl (Zofran Inj) 4 mg Q6H PRN IV NAUSEA AND/OR VOMITING; Start at 20:30 Morphine Sulfate (morphine) 2 mg Q4H PRN IV PAIN LEVEL 7-10; Start 08/06/16 at 20:30 Enoxaparin Sodium (Lovenox) 30 mg DAILY SC Last administered on 08/14/16 08:25 ; Admin Dose 30 MG; Start 08/07/16 at 09:00 Miscellaneous Information 1 ea NOTE XX ; Start 08/06/16 at 20:30 Diagnostic Test (Pha) (Accu-Chek) 1 ea 02 XX Last administered on 08/11/16 01: 49; Admin Dose 1 EA; Start 08/07/16 at 02:00 Miscellaneous Information 1 ea NOTE XX ; Start 08/06/16 at 20:30 Glucose (Glutose) 15 gm Q15M PRN PO DECREASED GLUCOSE; Start 08/06/16 at 20:30 Glucose (Glutose) 22.5 gm Q15M PRN PO DECREASED GLUCOSE; Start 08/06/16 at 20: 30 Dextrose (D50w Syringe) 25 ml Q15M PRN IV DECREASED GLUCOSE; Start 08/06/16 at 20:30 Dextrose (D50w Syringe) 50 ml Q15M PRN IV DECREASED GLUCOSE; Start 08/06/16 at 20:30 Glucagon (Glucagen) 1 mg Q15M PRN IM DECREASED GLUCOSE; Start 08/06/16 at 20:30 Glucose (Glutose) 15 gm Q15M PRN BUCCAL DECREASED GLUCOSE; Start 08/06/16 at 20 :30 Aripiprazole (Abilify) 10 mg DAILY PO Last administered on 08/14/16 08:21; Admin Dose 10 MG; Start 08/08/16 at 09:00 Atorvastatin Calcium (Lipitor) 40 mg HS PO Last administered on 08/13/16 21:27 ; Admin Dose 40 MG; Start 08/07/16 at 21:00 Brimonidine Tartrate (Alphagan P 0.15%) 1 drop BID BOTH EYES Last administered on 08/14/16 08:28; Admin Dose 1 DROP; Start 08/07/16 at 21:00 Sertraline HCl (Zoloft) 50 mg DAILY PO Last administered on 08/14/16 08:21; Admin Dose 50 MG; Start 08/08/16 at 09:00 Pantoprazole Sodium (Protonix) 20 mg BID@06,18 PO Last administered on 17:47; Admin Dose 20 MG; Start 08/07/16 at 18:00 Empaglifozin (Jardiance) 25 mg DAILY@08 PO Last administered on 08/14/16 08:19 ; Admin Dose 25 MG; Start 08/08/16 at 08:00 Linagliptin (Tradjenta) 5 mg DAILY@08 PO Last administered on 08/14/16 08:19; Admin Dose 5 MG; Start 08/08/16 at 08:00 Nitroglycerin (Nitroglycerin (Sl Tab) 0.4 Mg) 1 tab Q5M PRN SL ANGINA; Start at 20:00 Insulin Glargine (Lantus) 45 unit DAILY@08 SC Last administered on 08/14/16 08 :26; Admin Dose 45 UNIT; Start 08/09/16 at 08:00 Losartan Potassium (Cozaar) 100 mg DAILY PO Last administered on 08/14/16 08: 21; Admin Dose 100 MG; Start 08/12/16 at 13:30 Insulin Human NPH (Humulin N) 28 unit DAILY@20 SC Last administered on 21:29; Admin Dose 28 UNIT; Start 08/12/16 at 20:00 Metoprolol Succinate (Toprol Xl) 50 mg BID PO Last administered on 08/14/16 08 :22; Admin Dose 50 MG; Start 08/13/16 at 21:00 Amlodipine Besylate (Norvasc) 2.5 mg DAILY PO Last administered on 08/14/16 08 :21; Admin Dose 2.5 MG; Start 08/14/16 at 09:00 Hydralazine HCl (Apresoline) 50 mg TID PO Last administered on 08/14/16t 12:24 ; Admin Dose 50 MG; Start 08/13/16 at 13:00 TONY KELLY MD August 14, 2016 18:51
[2016-08-14] MEDS: ATORVASTATIN 40 MG TAB PO SCH (20:11)
[2016-08-14] MEDS: NPH, HUMAN INSULIN ISOPHANE 3ML VIAL SC SCH (20:14)
--- NOTE | 2016-08-14 22:38 | CONS ---
Date/Time of Note Date/Time of Note DATE: 08/14/16 TIME: 22:35 Assessment/Plan Assessment/Plan Chief Complaint/Hosp Course IMPRESSION: 1. Shortness of breath 2. Elevated BNP, assess for congestive heart failure. 3. Chest pain, assess for acute coronary syndrome.-negative trop x 3/No ischemia by lexiscan 4. Abnormal electrocardiogram. Assess for acute coronary syndrome. 5. Hypertensive urgency, emergency. Currently improved on oral antihypertensives. 6. Diabetes mellitus, uncontrolled blood sugars. 7. Anemia. 8. Leukocytosis. 9. Psych disorder. 10. CHF-diastolic acute on chronic-improved volume status by exam/cxr 11.Possible DAVID 12. 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 -continue plavix -Continue nighttime CPAP Problems: Consultation Date/Type/Reason Admit Date/Time August 06, 2016 at 19:45 Initial Consult Date 08/08/16 Type of Consultation: Cardiology Reason for Consultation CHF Referring Provider: MADHU CAZARES Exam/Review of Systems Vital Signs Vitals Vital Signs Date Time Temp Pulse Resp B/P Pulse Ox O2 Delivery O2 Flow Rate FiO2 08/14/16 21:06 97.4 67 18 121/56 98 08/14/16 19:15 Nasal Cannula 2.0 08/14/16 05:07 30 Intake and Output 08/13/16 08/13/16 08/14/16 15:00 23:00 07:00 Intake Total 1040 ml 800 ml 900 ml Balance 1040 ml 800 ml 900 ml Exam Review of Systems: CONSTITUTIONAL: No fevers, chills. PULMONARY: ongoing sob CARDIOVASCULAR: No chest pain/palpitations GASTROINTESTINAL: No nausea/vomiting. GENITOURINARY: No hematuria/dysuria. MUSCULOSKELETAL: No myagias/arthalgias. PSYCHIATRIC: The patient denies depression. NEUROLOGIC: No weakness Constitutional: alert Psych: no complaints Head: normocephalic ENMT: mucosa pink and moist Neck: jvd (8 cm water), supple Respiratory: diminished breath sounds (at bases/B) Cardiovascular: regular rate and rhythm Gastrointestinal: non-tender, soft Musculoskeletal: muscle tone (normal) Extremities: edema (none) Neurological: lethargic Results Result Diagram: 08/14/16 0810 08/14/16 0810 Results 24 hrs Laboratory Tests Test 08/14/16 01:56 08/14/16 07:57 08/14/16 08:10 08/14/16 12:18 Bedside Glucose 156 150 156 White Blood Count 10.9 H Red Blood Count 4.79 Hemoglobin 11.4 L Hematocrit 38.6 Mean Corpuscular Volume 80.6 L Mean Corpuscular Hemoglobin 23.8 L Mean Corpuscular Hemoglobin Concent 29.5 L Red Cell Distribution Width 19.9 H Platelet Count 319 Mean Platelet Volume 8.7 Neutrophils % 79.1 H Lymphocytes % 12.0 L Monocytes % 5.7 Eosinophils % 2.4 Basophils % 0.4 Nucleated Red Blood Cells % 0.0 Neutrophils # 8.6 H Lymphocytes # 1.3 Monocytes # 0.6 Eosinophils # 0.3 Basophils # 0.0 Nucleated Red Blood Cells # 0.0 Sodium Level 136 Potassium Level 4.1 Chloride Level 95 L Carbon Dioxide Level 33 H Anion Gap 12 Blood Urea Nitrogen 55 H Creatinine 1.44 H Glucose Level 160 Calcium Level 9.0 Test 08/14/16 17:48 08/14/16 20:10 Bedside Glucose 95 167 Medications Medications Current Medications Ondansetron HCl (Zofran Inj) 4 mg Q6H PRN IV NAUSEA AND/OR VOMITING; Start at 20:30 Morphine Sulfate (morphine) 2 mg Q4H PRN IV PAIN LEVEL 7-10; Start 08/06/16 at 20:30 Enoxaparin Sodium (Lovenox) 30 mg DAILY SC Last administered on 08/14/16 08:25 ; Admin Dose 30 MG; Start 08/07/16 at 09:00 Miscellaneous Information 1 ea NOTE XX ; Start 08/06/16 at 20:30 Diagnostic Test (Pha) (Accu-Chek) 1 ea 02 XX Last administered on 08/11/16 01: 49; Admin Dose 1 EA; Start 08/07/16 at 02:00 Miscellaneous Information 1 ea NOTE XX ; Start 08/06/16 at 20:30 Glucose (Glutose) 15 gm Q15M PRN PO DECREASED GLUCOSE; Start 08/06/16 at 20:30 Glucose (Glutose) 22.5 gm Q15M PRN PO DECREASED GLUCOSE; Start 08/06/16 at 20: 30 Dextrose (D50w Syringe) 25 ml Q15M PRN IV DECREASED GLUCOSE; Start 08/06/16 at 20:30 Dextrose (D50w Syringe) 50 ml Q15M PRN IV DECREASED GLUCOSE; Start 08/06/16 at 20:30 Glucagon (Glucagen) 1 mg Q15M PRN IM DECREASED GLUCOSE; Start 08/06/16 at 20:30 Glucose (Glutose) 15 gm Q15M PRN BUCCAL DECREASED GLUCOSE; Start 08/06/16 at 20 :30 Aripiprazole (Abilify) 10 mg DAILY PO Last administered on 08/14/16 08:21; Admin Dose 10 MG; Start 08/08/16 at 09:00 Atorvastatin Calcium (Lipitor) 40 mg HS PO Last administered on 08/14/16 20:11 ; Admin Dose 40 MG; Start 08/07/16 at 21:00 Brimonidine Tartrate (Alphagan P 0.15%) 1 drop BID BOTH EYES Last administered on 08/14/16 20:47; Admin Dose 1 DROP; Start 08/07/16 at 21:00 Sertraline HCl (Zoloft) 50 mg DAILY PO Last administered on 08/14/16 08:21; Admin Dose 50 MG; Start 08/08/16 at 09:00 Pantoprazole Sodium (Protonix) 20 mg BID@06,18 PO Last administered on 17:47; Admin Dose 20 MG; Start 08/07/16 at 18:00 Empaglifozin (Jardiance) 25 mg DAILY@08 PO Last administered on 08/14/16 08:19 ; Admin Dose 25 MG; Start 08/08/16 at 08:00 Linagliptin (Tradjenta) 5 mg DAILY@08 PO Last administered on 08/14/16 08:19; Admin Dose 5 MG; Start 08/08/16 at 08:00 Nitroglycerin (Nitroglycerin (Sl Tab) 0.4 Mg) 1 tab Q5M PRN SL ANGINA; Start at 20:00 Insulin Glargine (Lantus) 45 unit DAILY@08 SC Last administered on 08/14/16 08 :26; Admin Dose 45 UNIT; Start 08/09/16 at 08:00 Losartan Potassium (Cozaar) 100 mg DAILY PO Last administered on 08/14/16 08: 21; Admin Dose 100 MG; Start 08/12/16 at 13:30 Insulin Human NPH (Humulin N) 28 unit DAILY@20 SC Last administered on 20:14; Admin Dose 28 UNIT; Start 08/12/16 at 20:00 Metoprolol Succinate (Toprol Xl) 50 mg BID PO Last administered on 08/14/16 08 :22; Admin Dose 50 MG; Start 08/13/16 at 21:00 Amlodipine Besylate (Norvasc) 2.5 mg DAILY PO Last administered on 08/14/16 08 :21; Admin Dose 2.5 MG; Start 08/14/16 at 09:00 Hydralazine HCl (Apresoline) 50 mg TID PO Last administered on 08/14/16 20:11 ; Admin Dose 50 MG; Start 08/13/16 at 13:00 TERRIE DUNN August 14, 2016 22:38
[2016-08-15] VITALS (17 sets, daily range): BP systolic 106–160; BP diastolic 52–68; PULSE 57–69; RESP 18–21
[2016-08-15] MEDS: ACCUCHECK AT 2AM (Patients on SS coverage) XX SCH (02:00)
[2016-08-15] MEDS: PANTOPRAZOLE SODIUM 20 MG TABEC PO SCH ×3 (06:00→17:33)
[2016-08-15] MEDS: FUROSEMIDE 20 MG TAB PO SCH (06:33)
[2016-08-15 07:46] LABS: ADD SCAN DIFF NO
[2016-08-15 07:48] LABS: BASOPHILS % 0.4 % (0.0-2.0); EOSINOPHILS # 0.2 10^3/ul (0.0-0.5); EOSINOPHILS % 2.4 % (0.0-7.0); HEMATOCRIT 41.5 % (37.0-47.0); HEMOGLOBIN 12.3 g/dl (12.0-16.0); LYMPHOCYTES # 1.2 10^3/ul (0.8-2.9); LYMPHOCYTES % 12.1 % (15.0-51.0); MEAN CORPUSCULAR HEMOGLOBIN 24.1 pg (29.0-33.0); MEAN CORPUSCULAR HGB CONC 29.6 g/dl (32.0-37.0); MEAN CORPUSCULAR VOLUME 81.4 fl (82.0-101.0); MONOCYTE # 0.6 10^3/ul (0.3-0.9); MONOCYTES % 6.3 % (0.0-11.0); NEUTROPHIL # 7.5 10^3/ul (1.6-7.5); NEUTROPHILS % 78.4 % (39.0-77.0); PLATELET COUNT 351 10^3/UL (140-415); RED CELL DISTRIBUTION WIDTH 19.9 % (11.5-14.5); WHITE BLOOD COUNT 9.6 10^3/ul (4.8-10.8)
[2016-08-15 08:06] LABS: CALCIUM 9.4 mg/dl (8.4-10.2); CREATININE 1.16 mg/dl (0.44-1.00); POTASSIUM 4.3 mmol/L (3.5-5.1)
[2016-08-15] MEDS: EMPAGLIFLOZIN 10 MG TABLET PO SCH (08:53)
[2016-08-15] MEDS: ARIPIPRAZOLE 10 MG TAB PO SCH (08:53)
[2016-08-15] MEDS: SERTRALINE 50 MG TAB PO SCH (08:54)
[2016-08-15] MEDS: LINAGLIPTIN 5 MG TABLET PO SCH (08:54)
[2016-08-15] MEDS: METOPROLOL (XL) 50 MG TAB PO SCH ×2 (08:55→20:30)
[2016-08-15] MEDS: AMLODIPINE 2.5 MG TAB PO SCH (08:55)
[2016-08-15] MEDS: ENOXAPARIN 30 MG/0.3 ML SYG SC SCH (08:55)
[2016-08-15] MEDS: LOSARTAN 50 MG TAB PO SCH (08:56)
[2016-08-15] MEDS: BRIMONIDINE 0.15% 5 ML OPH BOTH EYES SCH ×2 (08:57→20:31)
[2016-08-15] MEDS: [UNRECOGNIZED DRUG - OTHER] SC SCH ×3 (08:59→17:35)
[2016-08-15] MEDS: INSULIN GLARGINE [LANtus] 3 ML PEN SC SCH (09:00)
[2016-08-15] MEDS: INSULIN ASPART [NOVOLOG] 3 ML PEN SC SCH ×7 (09:01→20:30)
--- NOTE | 2016-08-15 09:18 | CONS ---
Date/Time of Note Date/Time of Note DATE: 08/15/16 TIME: 09:16 Assessment/Plan Assessment/Plan Additional Assessment/Plan 1. Shortness of breath - much improved, off oxygen now 2. Elevated BNP, assess for congestive heart failure - con't to keep euvolemic. 3. Chest pain, assess for acute coronary syndrome.-negative trop x 3/No ischemia by lexiscan - no intervention planned. 4. Abnormal electrocardiogram. Assess for acute coronary syndrome. 5. Hypertensive urgency, emergency. Currently improved on oral antihypertensives. 6. Diabetes mellitus, uncontrolled blood sugars - on meds, keep euglycemic. . 7. Anemia. 8. Leukocytosis- on anti-bx, con't to monitor closely. 9. Psych disorder. 10. CHF-diastolic acute on chronic-improved volume status by exam/cxr - better now. 11.Possible DAVID 12. Renal failure Consultation Date/Type/Reason Admit Date/Time August 06, 2016 at 19:45 Type of Consultation: Cardiology Referring Provider: MADHU CAZARES 24 HR Interval Summary Free Text/Dictation No acute change - no ectopy on tele - much better fluid status now. ROS: No fever, no chills, no nausea, no vomiting, no diarrhea/constipation No recent weight changes No chest pain, no PND, no orthopnea No dizziness, blurred vision No thirst, no heat or cold intolerance Exam/Review of Systems Vital Signs Vitals Vital Signs Date Time Temp Pulse Resp B/P Pulse Ox O2 Delivery O2 Flow Rate FiO2 08/15/16 08:13 62 08/15/16 07:51 98.8 21 122/57 100 08/15/16 04:45 30 08/14/16 21:00 2.0 08/14/16 19:15 Nasal Cannula Intake and Output 08/14/16 08/14/16 08/15/16 15:00 23:00 07:00 Intake Total 1000 ml 800 ml Balance 1000 ml 800 ml Exam General: WN/WD/NAD, AOx 3 HEENT: Unicetric/atraumatic/EOMI (follows commands) NECK: JVD elevated, no thyromegaly Lymph: no lymphadenopathy HEART: regular with no S3, II/ systolic murmur at apex LUNGS: Coarse sounds ABD: soft, NT, ND, +BS : Intact Neuro: non focal SKIN: chronic changes EXT: trace edema Results Result Diagram: 08/15/16 0650 08/15/16 0650 Results 24 hrs Laboratory Tests Test 08/14/16 12:18 08/14/16 17:48 08/14/16 20:10 08/15/16 06:50 Bedside Glucose 156 95 167 White Blood Count 9.6 Red Blood Count 5.10 Hemoglobin 12.3 Hematocrit 41.5 Mean Corpuscular Volume 81.4 L Mean Corpuscular Hemoglobin 24.1 L Mean Corpuscular Hemoglobin Concent 29.6 L Red Cell Distribution Width 19.9 H Platelet Count 351 Mean Platelet Volume 9.0 Neutrophils % 78.4 H Lymphocytes % 12.1 L Monocytes % 6.3 Eosinophils % 2.4 Basophils % 0.4 Nucleated Red Blood Cells % 0.0 Neutrophils # 7.5 Lymphocytes # 1.2 Monocytes # 0.6 Eosinophils # 0.2 Basophils # 0.0 Nucleated Red Blood Cells # 0.0 Sodium Level 141 Potassium Level 4.3 Chloride Level 98 Carbon Dioxide Level 35 H Anion Gap 12 Blood Urea Nitrogen 48 H Creatinine 1.16 H Glucose Level 185 Calcium Level 9.4 Test 08/15/16 08:07 Bedside Glucose 169 Medications Medications Current Medications Ondansetron HCl (Zofran Inj) 4 mg Q6H PRN IV NAUSEA AND/OR VOMITING; Start at 20:30 Morphine Sulfate (morphine) 2 mg Q4H PRN IV PAIN LEVEL 7-10; Start 08/06/16 at 20:30 Enoxaparin Sodium (Lovenox) 30 mg DAILY SC Last administered on 08/15/16 08:55 ; Admin Dose 30 MG; Start 08/07/16 at 09:00 Miscellaneous Information 1 ea NOTE XX ; Start 08/06/16 at 20:30 Diagnostic Test (Pha) (Accu-Chek) 1 ea 02 XX Last administered on 08/11/16 01: 49; Admin Dose 1 EA; Start 08/07/16 at 02:00 Miscellaneous Information 1 ea NOTE XX ; Start 08/06/16 at 20:30 Glucose (Glutose) 15 gm Q15M PRN PO DECREASED GLUCOSE; Start 08/06/16 at 20:30 Glucose (Glutose) 22.5 gm Q15M PRN PO DECREASED GLUCOSE; Start 08/06/16 at 20: 30 Dextrose (D50w Syringe) 25 ml Q15M PRN IV DECREASED GLUCOSE; Start 08/06/16 at 20:30 Dextrose (D50w Syringe) 50 ml Q15M PRN IV DECREASED GLUCOSE; Start 08/06/16 at 20:30 Glucagon (Glucagen) 1 mg Q15M PRN IM DECREASED GLUCOSE; Start 08/06/16 at 20:30 Glucose (Glutose) 15 gm Q15M PRN BUCCAL DECREASED GLUCOSE; Start 08/06/16 at 20 :30 Aripiprazole (Abilify) 10 mg DAILY PO Last administered on 08/15/16 08:53; Admin Dose 10 MG; Start 08/08/16 at 09:00 Atorvastatin Calcium (Lipitor) 40 mg HS PO Last administered on 08/14/16 20:11 ; Admin Dose 40 MG; Start 08/07/16 at 21:00 Brimonidine Tartrate (Alphagan P 0.15%) 1 drop BID BOTH EYES Last administered on 08/15/16 08:57; Admin Dose 1 DROP; Start 08/07/16 at 21:00 Sertraline HCl (Zoloft) 50 mg DAILY PO Last administered on 08/15/16 08:54; Admin Dose 50 MG; Start 08/08/16 at 09:00 Pantoprazole Sodium (Protonix) 20 mg BID@06,18 PO Last administered on 06:45; Admin Dose 20 MG; Start 08/07/16 at 18:00 Empaglifozin (Jardiance) 25 mg DAILY@08 PO Last administered on 08/15/16 08:53 ; Admin Dose 25 MG; Start 08/08/16 at 08:00 Linagliptin (Tradjenta) 5 mg DAILY@08 PO Last administered on 08/15/16 08:54; Admin Dose 5 MG; Start 08/08/16 at 08:00 Nitroglycerin (Nitroglycerin (Sl Tab) 0.4 Mg) 1 tab Q5M PRN SL ANGINA; Start at 20:00 Insulin Glargine (Lantus) 45 unit DAILY@08 SC Last administered on 08/15/16 09 :00; Admin Dose 45 UNIT; Start 08/09/16 at 08:00 Losartan Potassium (Cozaar) 100 mg DAILY PO Last administered on 08/15/16 08: 56; Admin Dose 100 MG; Start 08/12/16 at 13:30 Insulin Human NPH (Humulin N) 28 unit DAILY@20 SC Last administered on 20:14; Admin Dose 28 UNIT; Start 08/12/16 at 20:00 Metoprolol Succinate (Toprol Xl) 50 mg BID PO Last administered on 08/15/16 08 :55; Admin Dose 50 MG; Start 08/13/16 at 21:00 Amlodipine Besylate (Norvasc) 2.5 mg DAILY PO Last administered on 08/15/16 08 :55; Admin Dose 2.5 MG; Start 08/14/16 at 09:00 Hydralazine HCl (Apresoline) 50 mg TID PO Last administered on 08/15/16 08:56 ; Admin Dose 50 MG; Start 08/13/16 at 13:00 Furosemide (Lasix) 20 mg DAILY@06 PO Last administered on 08/15/16 06:33; Admin Dose 20 MG; Start 08/15/16 at 06:00 WERNER FALCON MD August 15, 2016 09:18
--- NOTE | 2016-08-15 09:48 | CONS ---
Date/Time of Note Date/Time of Note DATE: 08/15/16 TIME: 09:46 Assessment/Plan Assessment/Plan Additional Assessment/Plan Assessment recommendations; next 1. Patient admitted for shortness of breath due to mild pulmonary edema from diastolic dysfunction, clinically much improved. 2. Negative cardiac SPECT test. 3. History of hypertension, diabetes. 4. Underlying obesity. 5. Possibly underlying sleep apnea as well. 6. Currently no evidence of any hypoxemia or hypercapnia. Continue current treatment. Patient can be discharged home. Consultation Date/Type/Reason Admit Date/Time August 06, 2016 at 19:45 Initial Consult Date 08/08/16 Type of Consultation: Pulmonary Referring Provider: MADHU CAZARES 24 HR Interval Summary Free Text/Dictation Patient condition is stable. Denies any shortness of breath, chest pain, wheezing, cough or sputum production. Patient has been ambulatory. General exam; elderly woman, awake alert currently in no distress. Exam/Review of Systems Vital Signs Vitals Vital Signs Date Time Temp Pulse Resp B/P Pulse Ox O2 Delivery O2 Flow Rate FiO2 08/15/16 08:13 62 08/15/16 07:51 98.8 21 122/57 100 08/15/16 04:45 30 08/14/16 21:00 2.0 08/14/16 19:15 Nasal Cannula Intake and Output 08/14/16 08/14/16 08/15/16 15:00 23:00 07:00 Intake Total 1000 ml 800 ml Balance 1000 ml 800 ml Exam HEENT examination; supple neck, JVD difficult to see because of short neck. Patient is edentulous. Pharynx is clear. Pupils are midsize reactive to light. No neck masses. No thyromegaly. Chest examination; clear to auscultation. S1-S2 audible, no murmurs. Regular rhythm. Abdomen examination; protuberant. Nontender. Bowel sounds audible. Soft. Extremity examination; no peripheral edema. Pulses 2+ bilaterally. [employer] examination; no focal deficit. Results Result Diagram: 08/15/16 0650 08/15/16 0650 Results 24 hrs Laboratory Tests Test 08/14/16 12:18 08/14/16 17:48 08/14/16 20:10 08/15/16 06:50 Bedside Glucose 156 95 167 White Blood Count 9.6 Red Blood Count 5.10 Hemoglobin 12.3 Hematocrit 41.5 Mean Corpuscular Volume 81.4 L Mean Corpuscular Hemoglobin 24.1 L Mean Corpuscular Hemoglobin Concent 29.6 L Red Cell Distribution Width 19.9 H Platelet Count 351 Mean Platelet Volume 9.0 Neutrophils % 78.4 H Lymphocytes % 12.1 L Monocytes % 6.3 Eosinophils % 2.4 Basophils % 0.4 Nucleated Red Blood Cells % 0.0 Neutrophils # 7.5 Lymphocytes # 1.2 Monocytes # 0.6 Eosinophils # 0.2 Basophils # 0.0 Nucleated Red Blood Cells # 0.0 Sodium Level 141 Potassium Level 4.3 Chloride Level 98 Carbon Dioxide Level 35 H Anion Gap 12 Blood Urea Nitrogen 48 H Creatinine 1.16 H Glucose Level 185 Calcium Level 9.4 Test 08/15/16 08:07 Bedside Glucose 169 Medications Medications Current Medications Ondansetron HCl (Zofran Inj) 4 mg Q6H PRN IV NAUSEA AND/OR VOMITING; Start at 20:30 Morphine Sulfate (morphine) 2 mg Q4H PRN IV PAIN LEVEL 7-10; Start 08/06/16 at 20:30 Enoxaparin Sodium (Lovenox) 30 mg DAILY SC Last administered on 08/15/16 08:55 ; Admin Dose 30 MG; Start 08/07/16 at 09:00 Miscellaneous Information 1 ea NOTE XX ; Start 08/06/16 at 20:30 Diagnostic Test (Pha) (Accu-Chek) 1 ea 02 XX Last administered on 08/11/16 01: 49; Admin Dose 1 EA; Start 08/07/16 at 02:00 Miscellaneous Information 1 ea NOTE XX ; Start 08/06/16 at 20:30 Glucose (Glutose) 15 gm Q15M PRN PO DECREASED GLUCOSE; Start 08/06/16 at 20:30 Glucose (Glutose) 22.5 gm Q15M PRN PO DECREASED GLUCOSE; Start 08/06/16 at 20: 30 Dextrose (D50w Syringe) 25 ml Q15M PRN IV DECREASED GLUCOSE; Start 08/06/16 at 20:30 Dextrose (D50w Syringe) 50 ml Q15M PRN IV DECREASED GLUCOSE; Start 08/06/16 at 20:30 Glucagon (Glucagen) 1 mg Q15M PRN IM DECREASED GLUCOSE; Start 08/06/16 at 20:30 Glucose (Glutose) 15 gm Q15M PRN BUCCAL DECREASED GLUCOSE; Start 08/06/16 at 20 :30 Aripiprazole (Abilify) 10 mg DAILY PO Last administered on 08/15/16 08:53; Admin Dose 10 MG; Start 08/08/16 at 09:00 Atorvastatin Calcium (Lipitor) 40 mg HS PO Last administered on 08/14/16 20:11 ; Admin Dose 40 MG; Start 08/07/16 at 21:00 Brimonidine Tartrate (Alphagan P 0.15%) 1 drop BID BOTH EYES Last administered on 08/15/16 08:57; Admin Dose 1 DROP; Start 08/07/16 at 21:00 Sertraline HCl (Zoloft) 50 mg DAILY PO Last administered on 08/15/16 08:54; Admin Dose 50 MG; Start 08/08/16 at 09:00 Pantoprazole Sodium (Protonix) 20 mg BID@06,18 PO Last administered on 06:45; Admin Dose 20 MG; Start 08/07/16 at 18:00 Empaglifozin (Jardiance) 25 mg DAILY@08 PO Last administered on 08/15/16 08:53 ; Admin Dose 25 MG; Start 08/08/16 at 08:00 Linagliptin (Tradjenta) 5 mg DAILY@08 PO Last administered on 08/15/16 08:54; Admin Dose 5 MG; Start 08/08/16 at 08:00 Nitroglycerin (Nitroglycerin (Sl Tab) 0.4 Mg) 1 tab Q5M PRN SL ANGINA; Start at 20:00 Insulin Glargine (Lantus) 45 unit DAILY@08 SC Last administered on 08/15/16 09 :00; Admin Dose 45 UNIT; Start 08/09/16 at 08:00 Losartan Potassium (Cozaar) 100 mg DAILY PO Last administered on 08/15/16 08: 56; Admin Dose 100 MG; Start 08/12/16 at 13:30 Insulin Human NPH (Humulin N) 28 unit DAILY@20 SC Last administered on 20:14; Admin Dose 28 UNIT; Start 08/12/16 at 20:00 Metoprolol Succinate (Toprol Xl) 50 mg BID PO Last administered on 08/15/16 08 :55; Admin Dose 50 MG; Start 08/13/16 at 21:00 Amlodipine Besylate (Norvasc) 2.5 mg DAILY PO Last administered on 08/15/16 08 :55; Admin Dose 2.5 MG; Start 08/14/16 at 09:00 Hydralazine HCl (Apresoline) 50 mg TID PO Last administered on 08/15/16 08:56 ; Admin Dose 50 MG; Start 08/13/16 at 13:00 Furosemide (Lasix) 20 mg DAILY@06 PO Last administered on 08/15/16 06:33; Admin Dose 20 MG; Start 08/15/16 at 06:00 MIGUEL RIVERA August 15, 2016 09:48
--- NOTE | 2016-08-15 18:31 | PN ---
Date/Time of Note Date/Time of Note DATE: 08/15/16 TIME: 18:30 Assessment/Plan VTE Prophylaxis VTE Prophylaxis Intervention: SCD's Lines/Catheters IV Catheter Type (from [facility]): [place] [facility] Urinary Cath still in place: No Assessment/Plan Chief Complaint/Hosp Course Patient's continues on BiPAP overnight, denies any shortness of breath any chest pain at rest, pending PT eval. ASSESSMENT AND PLAN: - Diastolic acute on chronic congestive heart failure exacerbation. Continue Lasix. Dr. Cota is following patient. Cardiology consultation. Continue to monitor electrolytes. - Possible sleep apnea, continue BiPAP. is following in pulmonology consultation - Hypertension. Continue Toprol and Norvasc. - Acute coronary syndrome ruled out, troponin negative 3, stress test with no ischemia - Bilateral lower extremity edema secondary to change in CHF. Bilateral lower extremities ultrasound is negative for deep venous thrombosis. - Diabetes mellitus type 2. Dr. Cole is following in endocrinology consultation. - Acute on chronic kidney disease. Continue to monitor BUN and creatinine. - Hyperlipidemia. Continue statin. - Morbid obesity with BMI 50. Weight loss advised. PT eval. Continue Lovenox for deep venous thrombosis prophylaxis and Pepcid for peptic ulcer disease prophylaxis. Further recommendations based on clinical course. Plan of care discussed with Dr. Garza. Problems: Exam/Review of Systems Vital Signs Vitals Vital Signs Date Time Temp Pulse Resp B/P Pulse Ox O2 Delivery O2 Flow Rate FiO2 08/15/16 17:44 2.0 08/15/16 16:43 57 08/15/16 16:17 97.9 21 106/52 97 08/15/16 09:45 Nasal Cannula 08/15/16 04:45 30 Intake and Output 08/14/16 08/14/16 08/15/16 15:00 23:00 07:00 Intake Total 1000 ml 800 ml Balance 1000 ml 800 ml Exam Constitutional: alert, oriented Psych: no complaints Head: normocephalic Eyes: nl conjunctiva ENMT: nl external ears & nose Neck: non-tender, supple Respiratory: clear to auscultation, normal air movement Cardiovascular: nl pulses, regular rate and rhythm Gastrointestinal: soft Extremities: normal pulses Neurological: EVENT PROMOTER II-XII intact Results Result Diagram: 08/15/16 0650 08/15/16 0650 Results 24 hrs Laboratory Tests Test 08/14/16 20:10 08/15/16 06:50 08/15/16 08:07 08/15/16 12:23 Bedside Glucose 167 169 131 White Blood Count 9.6 Red Blood Count 5.10 Hemoglobin 12.3 Hematocrit 41.5 Mean Corpuscular Volume 81.4 L Mean Corpuscular Hemoglobin 24.1 L Mean Corpuscular Hemoglobin Concent 29.6 L Red Cell Distribution Width 19.9 H Platelet Count 351 Mean Platelet Volume 9.0 Neutrophils % 78.4 H Lymphocytes % 12.1 L Monocytes % 6.3 Eosinophils % 2.4 Basophils % 0.4 Nucleated Red Blood Cells % 0.0 Neutrophils # 7.5 Lymphocytes # 1.2 Monocytes # 0.6 Eosinophils # 0.2 Basophils # 0.0 Nucleated Red Blood Cells # 0.0 Sodium Level 141 Potassium Level 4.3 Chloride Level 98 Carbon Dioxide Level 35 H Anion Gap 12 Blood Urea Nitrogen 48 H Creatinine 1.16 H Glucose Level 185 Calcium Level 9.4 Test 08/15/16 17:22 Bedside Glucose 89 Medications Medications Current Medications Ondansetron HCl (Zofran Inj) 4 mg Q6H PRN IV NAUSEA AND/OR VOMITING; Start at 20:30 Morphine Sulfate (morphine) 2 mg Q4H PRN IV PAIN LEVEL 7-10; Start 08/06/16 at 20:30 Enoxaparin Sodium (Lovenox) 30 mg DAILY SC Last administered on 08/15/16 08:55 ; Admin Dose 30 MG; Start 08/07/16 at 09:00 Miscellaneous Information 1 ea NOTE XX ; Start 08/06/16 at 20:30 Diagnostic Test (Pha) (Accu-Chek) 1 ea 02 XX Last administered on 08/11/16 01: 49; Admin Dose 1 EA; Start 08/07/16 at 02:00 Miscellaneous Information 1 ea NOTE XX ; Start 08/06/16 at 20:30 Glucose (Glutose) 15 gm Q15M PRN PO DECREASED GLUCOSE; Start 08/06/16 at 20:30 Glucose (Glutose) 22.5 gm Q15M PRN PO DECREASED GLUCOSE; Start 08/06/16 at 20: 30 Dextrose (D50w Syringe) 25 ml Q15M PRN IV DECREASED GLUCOSE; Start 08/06/16 at 20:30 Dextrose (D50w Syringe) 50 ml Q15M PRN IV DECREASED GLUCOSE; Start 08/06/16 at 20:30 Glucagon (Glucagen) 1 mg Q15M PRN IM DECREASED GLUCOSE; Start 08/06/16 at 20:30 Glucose (Glutose) 15 gm Q15M PRN BUCCAL DECREASED GLUCOSE; Start 08/06/16 at 20 :30 Aripiprazole (Abilify) 10 mg DAILY PO Last administered on 08/15/16 08:53; Admin Dose 10 MG; Start 08/08/16 at 09:00 Atorvastatin Calcium (Lipitor) 40 mg HS PO Last administered on 08/14/16 20:11 ; Admin Dose 40 MG; Start 08/07/16 at 21:00 Brimonidine Tartrate (Alphagan P 0.15%) 1 drop BID BOTH EYES Last administered on 08/15/16 08:57; Admin Dose 1 DROP; Start 08/07/16 at 21:00 Sertraline HCl (Zoloft) 50 mg DAILY PO Last administered on 08/15/16 08:54; Admin Dose 50 MG; Start 08/08/16 at 09:00 Pantoprazole Sodium (Protonix) 20 mg BID@06,18 PO Last administered on 17:33; Admin Dose 20 MG; Start 08/07/16 at 18:00 Empaglifozin (Jardiance) 25 mg DAILY@08 PO Last administered on 08/15/16 08:53 ; Admin Dose 25 MG; Start 08/08/16 at 08:00 Linagliptin (Tradjenta) 5 mg DAILY@08 PO Last administered on 08/15/16 08:54; Admin Dose 5 MG; Start 08/08/16 at 08:00 Nitroglycerin (Nitroglycerin (Sl Tab) 0.4 Mg) 1 tab Q5M PRN SL ANGINA; Start at 20:00 Insulin Glargine (Lantus) 45 unit DAILY@08 SC Last administered on 08/15/16 09 :00; Admin Dose 45 UNIT; Start 08/09/16 at 08:00 Losartan Potassium (Cozaar) 100 mg DAILY PO Last administered on 08/15/16 08: 56; Admin Dose 100 MG; Start 08/12/16 at 13:30 Insulin Human NPH (Humulin N) 28 unit DAILY@20 SC Last administered on 20:14; Admin Dose 28 UNIT; Start 08/12/16 at 20:00 Metoprolol Succinate (Toprol Xl) 50 mg BID PO Last administered on 08/15/16 08 :55; Admin Dose 50 MG; Start 08/13/16 at 21:00 Amlodipine Besylate (Norvasc) 2.5 mg DAILY PO Last administered on 08/15/16 08 :55; Admin Dose 2.5 MG; Start 08/14/16 at 09:00 Hydralazine HCl (Apresoline) 50 mg TID PO Last administered on 08/15/16 14:21 ; Admin Dose 50 MG; Start 08/13/16 at 13:00 Furosemide (Lasix) 20 mg DAILY@06 PO Last administered on 08/15/16 06:33; Admin Dose 20 MG; Start 08/15/16 at 06:00 MADHU CAZARES August 15, 2016 18:31
[2016-08-15] MEDS: ATORVASTATIN 40 MG TAB PO SCH (20:31)
[2016-08-15] MEDS: NPH, HUMAN INSULIN ISOPHANE 3ML VIAL SC SCH (20:38)
--- NOTE | 2016-08-15 21:11 | CONS ---
Date/Time of Note Date/Time of Note DATE: 08/15/16 TIME: 21:07 Assessment/Plan Assessment/Plan Problems: (1) DM w/o complication type II, uncontrolled Status: Chronic Comment: Excellent glycemic control. Cont. current insulin doses. Consultation Date/Type/Reason Admit Date/Time August 06, 2016 at 19:45 Initial Consult Date 08/08/16 Type of Consultation: Endocrinology Reason for Consultation T2DM OOC Referring Provider: MADHU CAZARES 24 HR Interval Summary Constitutional: improved, no complaints Detailed Summary Respiratory: no complaints Cardiovascular: no complaints Gastrointestinal: no complaints Genitourinary: no complaints Musculoskeletal: no complaints Neurologic: no complaints Exam/Review of Systems Vital Signs Vitals VS - Last 72 Hours, by Label Date Time Temp Pulse Resp B/P Pulse Ox O2 Delivery O2 Flow Rate FiO2 08/15/16 20:33 60 08/15/16 20:06 98.2 59 18 118/55 95 08/15/16 19:30 Nasal Cannula 2.0 08/15/16 17:44 2.0 08/15/16 16:43 57 08/15/16 16:17 97.9 57 21 106/52 97 08/15/16 14:01 59 08/15/16 12:41 59 08/15/16 12:01 98.4 65 20 136/55 98 08/15/16 09:45 Nasal Cannula 2.0 08/15/16 08:13 62 08/15/16 07:51 98.8 67 21 122/57 100 08/15/16 04:45 67 98 30 08/15/16 04:18 97.8 67 18 146/67 98 08/15/16 04:00 66 08/15/16 03:00 66 97 30 08/15/16 01:20 63 98 30 08/15/16 00:17 98.0 71 18 160/68 96 08/15/16 00:07 69 08/14/16 23:40 65 98 30 08/14/16 21:25 65 98 30 08/14/16 21:06 97.4 67 18 121/56 98 08/14/16 21:00 2.0 08/14/16 20:27 63 08/14/16 19:15 Nasal Cannula 2.0 08/14/16 16:12 58 08/14/16 16:01 98.2 61 18 115/57 98 08/14/16 12:01 59 08/14/16 11:26 98.4 60 20 116/54 96 08/14/16 08:30 55 08/14/16 08:00 Nasal Cannula 2.0 08/14/16 07:36 98.1 65 21 126/58 96 08/14/16 05:52 2.0 08/14/16 05:07 69 98 30 08/14/16 04:15 98.1 56 18 101/49 96 08/14/16 04:11 54 08/14/16 02:05 72 98 30 08/14/16 01:03 62 99 30 08/14/16 00:20 59 08/13/16 23:58 98.1 66 20 109/52 99 08/13/16 22:38 3.0 08/13/16 22:37 75 96 30 08/13/16 20:25 97.6 58 18 104/47 96 08/13/16 20:19 59 08/13/16 18:14 98 3.0 08/13/16 16:22 58 08/13/16 16:00 98.4 57 109/51 100 Nasal Cannula 3.0 08/13/16 12:14 56 08/13/16 11:58 97.6 18 141/63 97 Nasal Cannula 2.5 08/13/16 08:11 71 08/13/16 08:00 Nasal Cannula 2.0 08/13/16 04:26 60 08/13/16 04:05 97.6 71 18 181/75 97 08/13/16 01:13 64 08/13/16 00:09 98.0 60 18 88/48 94 Vital Signs Date Time Temp Pulse Resp B/P Pulse Ox O2 Delivery O2 Flow Rate FiO2 08/15/16 20:33 60 08/15/16 20:06 98.2 18 118/55 95 08/15/16 19:30 Nasal Cannula 2.0 08/15/16 04:45 30 Intake and Output 08/14/16 08/14/16 08/15/16 14:59 22:59 06:59 Intake Total 1000 ml 800 ml Balance 1000 ml 800 ml Exam Constitutional: alert, obese, oriented Psych: nl mood/affect, no complaints Respiratory: clear to auscultation, normal air movement Cardiovascular: nl pulses, regular rate and rhythm, No edema, No murmurs/extra sounds, No rub Gastrointestinal: bowel sounds, nl liver, spleen, non-tender, soft, No mass, No rebound or guarding Musculoskeletal: nl extremities to inspection Extremities: normal pulses, No clubbing, No cyanosis, No edema 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, nl mental status, nl speech, nl strength Additional Comments Bedside Glucose - 72 Hours Test 08/12/16 21:27 08/13/16 01:48 08/13/16 08:03 08/13/16 12:01 Bedside Glucose 182mg/dL (70-220) 198mg/dL (70-220) 179mg/dL (70-220) 107mg/dL (70-220) Test 08/13/16 12:54 08/13/16 14:48 08/13/16 17:20 08/13/16 21:24 Bedside Glucose 76mg/dL (70-220) 113mg/dL (70-220) 105mg/dL (70-220) 116mg/dL (70-220) Test 08/14/16 01:56 08/14/16 07:57 08/14/16 12:18 08/14/16 17:48 Bedside Glucose 156mg/dL (70-220) 150mg/dL (70-220) 156mg/dL (70-220) 95mg/dL (70-220) Test 08/14/16 20:10 08/15/16 08:07 08/15/16 12:23 08/15/16 17:22 Bedside Glucose 167mg/dL (70-220) 169mg/dL (70-220) 131mg/dL (70-220) 89mg/dL (70-220) Test 08/15/16 20:30 Bedside Glucose 144mg/dL (70-220) Results Result Diagram: 08/15/16 0650 08/15/16 0650 Results 24 hrs Laboratory Tests Test 08/15/16 06:50 08/15/16 08:07 08/15/16 12:23 08/15/16 17:22 White Blood Count 9.6 Red Blood Count 5.10 Hemoglobin 12.3 Hematocrit 41.5 Mean Corpuscular Volume 81.4 L Mean Corpuscular Hemoglobin 24.1 L Mean Corpuscular Hemoglobin Concent 29.6 L Red Cell Distribution Width 19.9 H Platelet Count 351 Mean Platelet Volume 9.0 Neutrophils % 78.4 H Lymphocytes % 12.1 L Monocytes % 6.3 Eosinophils % 2.4 Basophils % 0.4 Nucleated Red Blood Cells % 0.0 Neutrophils # 7.5 Lymphocytes # 1.2 Monocytes # 0.6 Eosinophils # 0.2 Basophils # 0.0 Nucleated Red Blood Cells # 0.0 Sodium Level 141 Potassium Level 4.3 Chloride Level 98 Carbon Dioxide Level 35 H Anion Gap 12 Blood Urea Nitrogen 48 H Creatinine 1.16 H Glucose Level 185 Calcium Level 9.4 Bedside Glucose 169 131 89 Test 08/15/16 20:30 Bedside Glucose 144 Medications Medications Current Medications Ondansetron HCl (Zofran Inj) 4 mg Q6H PRN IV NAUSEA AND/OR VOMITING; Start at 20:30 Morphine Sulfate (morphine) 2 mg Q4H PRN IV PAIN LEVEL 7-10; Start 08/06/16 at 20:30 Enoxaparin Sodium (Lovenox) 30 mg DAILY SC Last administered on 08/15/16 08:55 ; Admin Dose 30 MG; Start 08/07/16 at 09:00 Miscellaneous Information 1 ea NOTE XX ; Start 08/06/16 at 20:30 Diagnostic Test (Pha) (Accu-Chek) 1 ea 02 XX Last administered on 08/11/16 01: 49; Admin Dose 1 EA; Start 08/07/16 at 02:00 Miscellaneous Information 1 ea NOTE XX ; Start 08/06/16 at 20:30 Glucose (Glutose) 15 gm Q15M PRN PO DECREASED GLUCOSE; Start 08/06/16 at 20:30 Glucose (Glutose) 22.5 gm Q15M PRN PO DECREASED GLUCOSE; Start 08/06/16 at 20: 30 Dextrose (D50w Syringe) 25 ml Q15M PRN IV DECREASED GLUCOSE; Start 08/06/16 at 20:30 Dextrose (D50w Syringe) 50 ml Q15M PRN IV DECREASED GLUCOSE; Start 08/06/16 at 20:30 Glucagon (Glucagen) 1 mg Q15M PRN IM DECREASED GLUCOSE; Start 08/06/16 at 20:30 Glucose (Glutose) 15 gm Q15M PRN BUCCAL DECREASED GLUCOSE; Start 08/06/16 at 20 :30 Aripiprazole (Abilify) 10 mg DAILY PO Last administered on 08/15/16 08:53; Admin Dose 10 MG; Start 08/08/16 at 09:00 Atorvastatin Calcium (Lipitor) 40 mg HS PO Last administered on 08/15/16 20:31 ; Admin Dose 40 MG; Start 08/07/16 at 21:00 Brimonidine Tartrate (Alphagan P 0.15%) 1 drop BID BOTH EYES Last administered on 08/15/16 20:31; Admin Dose 1 DROP; Start 08/07/16 at 21:00 Sertraline HCl (Zoloft) 50 mg DAILY PO Last administered on 08/15/16 08:54; Admin Dose 50 MG; Start 08/08/16 at 09:00 Pantoprazole Sodium (Protonix) 20 mg BID@06,18 PO Last administered on 17:33; Admin Dose 20 MG; Start 08/07/16 at 18:00 Empaglifozin (Jardiance) 25 mg DAILY@08 PO Last administered on 08/15/16 08:53 ; Admin Dose 25 MG; Start 08/08/16 at 08:00 Linagliptin (Tradjenta) 5 mg DAILY@08 PO Last administered on 08/15/16 08:54; Admin Dose 5 MG; Start 08/08/16 at 08:00 Nitroglycerin (Nitroglycerin (Sl Tab) 0.4 Mg) 1 tab Q5M PRN SL ANGINA; Start at 20:00 Insulin Glargine (Lantus) 45 unit DAILY@08 SC Last administered on 08/15/16 09 :00; Admin Dose 45 UNIT; Start 08/09/16 at 08:00 Losartan Potassium (Cozaar) 100 mg DAILY PO Last administered on 08/15/16 08: 56; Admin Dose 100 MG; Start 08/12/16 at 13:30 Insulin Human NPH (Humulin N) 28 unit DAILY@20 SC Last administered on 20:38; Admin Dose 28 UNIT; Start 08/12/16 at 20:00 Metoprolol Succinate (Toprol Xl) 50 mg BID PO Last administered on 08/15/16 08 :55; Admin Dose 50 MG; Start 08/13/16 at 21:00 Amlodipine Besylate (Norvasc) 2.5 mg DAILY PO Last administered on 08/15/16 08 :55; Admin Dose 2.5 MG; Start 08/14/16 at 09:00 Hydralazine HCl (Apresoline) 50 mg TID PO Last administered on 08/15/16 20:31 ; Admin Dose 50 MG; Start 08/13/16 at 13:00 Furosemide (Lasix) 20 mg DAILY@06 PO Last administered on 08/15/16 06:33; Admin Dose 20 MG; Start 08/15/16 at 06:00 TONY KELLY MD August 15, 2016 21:11
[2016-08-16] VITALS (17 sets, daily range): BP systolic 104–150; BP diastolic 56–65; PULSE 56–69; RESP 16–20
[2016-08-16] MEDS: ACCUCHECK AT 2AM (Patients on SS coverage) XX SCH (02:00)
[2016-08-16] MEDS: FUROSEMIDE 20 MG TAB PO SCH (05:08)
[2016-08-16] MEDS: PANTOPRAZOLE SODIUM 20 MG TABEC PO SCH ×2 (05:08→16:52)
[2016-08-16] MEDS: [UNRECOGNIZED DRUG - OTHER] SC SCH ×3 (08:08→16:53)
[2016-08-16] MEDS: INSULIN GLARGINE [LANtus] 3 ML PEN SC SCH (08:09)
[2016-08-16] MEDS: INSULIN ASPART [NOVOLOG] 3 ML PEN SC SCH ×7 (08:10→20:35)
[2016-08-16] MEDS: ENOXAPARIN 30 MG/0.3 ML SYG SC SCH (08:11)
[2016-08-16] MEDS: LINAGLIPTIN 5 MG TABLET PO SCH (08:12)
[2016-08-16] MEDS: EMPAGLIFLOZIN 10 MG TABLET PO SCH (08:12)
[2016-08-16] MEDS: LOSARTAN 50 MG TAB PO SCH (08:13)
[2016-08-16] MEDS: SERTRALINE 50 MG TAB PO SCH (08:13)
[2016-08-16] MEDS: AMLODIPINE 2.5 MG TAB PO SCH (08:13)
[2016-08-16] MEDS: METOPROLOL (XL) 50 MG TAB PO SCH ×2 (08:13→20:32)
[2016-08-16] MEDS: BRIMONIDINE 0.15% 5 ML OPH BOTH EYES SCH ×2 (08:14→20:31)
[2016-08-16] MEDS: ARIPIPRAZOLE 10 MG TAB PO SCH (08:14)
[2016-08-16 08:20] LABS: ADD SCAN DIFF NO
[2016-08-16 08:30] LABS: BASOPHILS % 0.4 % (0.0-2.0); EOSINOPHILS # 0.3 10^3/ul (0.0-0.5); EOSINOPHILS % 3.2 % (0.0-7.0); HEMATOCRIT 43.2 % (37.0-47.0); HEMOGLOBIN 12.8 g/dl (12.0-16.0); LYMPHOCYTES # 1.2 10^3/ul (0.8-2.9); LYMPHOCYTES % 13.5 % (15.0-51.0); MEAN CORPUSCULAR HEMOGLOBIN 24.1 pg (29.0-33.0); MEAN CORPUSCULAR HGB CONC 29.6 g/dl (32.0-37.0); MEAN CORPUSCULAR VOLUME 81.2 fl (82.0-101.0); MEAN PLATELET VOLUME 9.1 fl (7.4-10.4); MONOCYTE # 0.5 10^3/ul (0.3-0.9); MONOCYTES % 5.8 % (0.0-11.0); NEUTROPHILS % 76.7 % (39.0-77.0); PLATELET COUNT 370 10^3/UL (140-415); RED BLOOD COUNT 5.32 10^6/ul (4.20-5.40); RED CELL DISTRIBUTION WIDTH 20.3 % (11.5-14.5); WHITE BLOOD COUNT 9.1 10^3/ul (4.8-10.8)
[2016-08-16 08:50] LABS: POTASSIUM 4.3 mmol/L (3.5-5.1)
[2016-08-16 08:53] LABS: CREATININE 1.03 mg/dl (0.44-1.00)
--- NOTE | 2016-08-16 09:53 | CONS ---
Date/Time of Note Date/Time of Note DATE: 08/16/16 TIME: 09:51 Assessment/Plan Assessment/Plan Additional Assessment/Plan Assessment recommendations; 1. Patient admitted for shortness of breath due to mild CHF due to diastolic dysfunction with significant clinical improvement. 2. Chronic type II respiratory failure due to underlying obesity/ hypoventilation syndrome. Possibly superimposed sleep apnea. 3. History of hypertension diabetes. 4. Negative nuclear cardiac SPECT test. Patient was discharged home on nocturnal BiPAP. Continue current medications. Consultation Date/Type/Reason Admit Date/Time August 06, 2016 at 19:45 Initial Consult Date 08/08/16 Type of Consultation: Pulmonary Referring Provider: MADHU CAZARES 24 HR Interval Summary Free Text/Dictation Patient condition stable. Denies any shortness of breath, chest pain. General exam; elderly woman, awake alert currently in no distress. Exam/Review of Systems Vital Signs Vitals Vital Signs Date Time Temp Pulse Resp B/P Pulse Ox O2 Delivery O2 Flow Rate FiO2 08/16/16 08:11 2.0 08/16/16 08:02 96.9 65 16 150/65 100 08/16/16 05:05 30 08/15/16 19:30 Nasal Cannula Intake and Output 08/15/16 08/15/16 08/16/16 15:00 23:00 07:00 Intake Total 900 ml 800 ml Balance 900 ml 800 ml Exam HEENT examination; supple neck, JVD difficult to see because of short neck. Patient is edentulous and wears dentures. Pupils are midsize and reactive to light. No thyromegaly. No neck masses. Chest examination; diminished but clear vessel. S1-S2 audible, no murmurs. Regular rhythm. Abdomen examination; soft, protuberant. Nontender. No organomegaly. Bowel sounds audible. Extremity exam is; no peripheral edema. Pulses 2+ bilaterally. 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 Results Result Diagram: 08/16/1630 08/16/1630 Results 24 hrs Laboratory Tests Test 08/15/16 12:23 08/15/16 17:22 08/15/16 20:30 08/16/16 07:30 Bedside Glucose 131 89 144 White Blood Count 9.1 Red Blood Count 5.32 Hemoglobin 12.8 Hematocrit 43.2 Mean Corpuscular Volume 81.2 L Mean Corpuscular Hemoglobin 24.1 L Mean Corpuscular Hemoglobin Concent 29.6 L Red Cell Distribution Width 20.3 H Platelet Count 370 Mean Platelet Volume 9.1 Neutrophils % 76.7 Lymphocytes % 13.5 L Monocytes % 5.8 Eosinophils % 3.2 Basophils % 0.4 Nucleated Red Blood Cells % 0.0 Neutrophils # 7.0 Lymphocytes # 1.2 Monocytes # 0.5 Eosinophils # 0.3 Basophils # 0.0 Nucleated Red Blood Cells # 0.0 Sodium Level 141 Potassium Level 4.3 Chloride Level 94 L Carbon Dioxide Level 35 H Anion Gap 16 Blood Urea Nitrogen 45 H Creatinine 1.03 H Glucose Level 133 # Calcium Level 9.0 Test 08/16/16 07:49 Bedside Glucose 163 Medications Medications Current Medications Ondansetron HCl (Zofran Inj) 4 mg Q6H PRN IV NAUSEA AND/OR VOMITING; Start at 20:30 Morphine Sulfate (morphine) 2 mg Q4H PRN IV PAIN LEVEL 7-10; Start 08/06/16 at 20:30 Enoxaparin Sodium (Lovenox) 30 mg DAILY SC Last administered on 08/16/16 08:11 ; Admin Dose 30 MG; Start 08/07/16 at 09:00 Miscellaneous Information 1 ea NOTE XX ; Start 08/06/16 at 20:30 Diagnostic Test (Pha) (Accu-Chek) 1 ea 02 XX Last administered on 08/11/16 01: 49; Admin Dose 1 EA; Start 08/07/16 at 02:00 Miscellaneous Information 1 ea NOTE XX ; Start 08/06/16 at 20:30 Glucose (Glutose) 15 gm Q15M PRN PO DECREASED GLUCOSE; Start 08/06/16 at 20:30 Glucose (Glutose) 22.5 gm Q15M PRN PO DECREASED GLUCOSE; Start 08/06/16 at 20: 30 Dextrose (D50w Syringe) 25 ml Q15M PRN IV DECREASED GLUCOSE; Start 08/06/16 at 20:30 Dextrose (D50w Syringe) 50 ml Q15M PRN IV DECREASED GLUCOSE; Start 08/06/16 at 20:30 Glucagon (Glucagen) 1 mg Q15M PRN IM DECREASED GLUCOSE; Start 08/06/16 at 20:30 Glucose (Glutose) 15 gm Q15M PRN BUCCAL DECREASED GLUCOSE; Start 08/06/16 at 20 :30 Aripiprazole (Abilify) 10 mg DAILY PO Last administered on 08/16/16 08:14; Admin Dose 10 MG; Start 08/08/16 at 09:00 Atorvastatin Calcium (Lipitor) 40 mg HS PO Last administered on 08/15/16 20:31 ; Admin Dose 40 MG; Start 08/07/16 at 21:00 Brimonidine Tartrate (Alphagan P 0.15%) 1 drop BID BOTH EYES Last administered on 08/16/16 08:14; Admin Dose 1 DROP; Start 08/07/16 at 21:00 Sertraline HCl (Zoloft) 50 mg DAILY PO Last administered on 08/16/16 08:13; Admin Dose 50 MG; Start 08/08/16 at 09:00 Pantoprazole Sodium (Protonix) 20 mg BID@06,18 PO Last administered on 05:08; Admin Dose 20 MG; Start 08/07/16 at 18:00 Empaglifozin (Jardiance) 25 mg DAILY@08 PO Last administered on 08/16/16 08:12 ; Admin Dose 25 MG; Start 08/08/16 at 08:00 Linagliptin (Tradjenta) 5 mg DAILY@08 PO Last administered on 08/16/16 08:12; Admin Dose 5 MG; Start 08/08/16 at 08:00 Nitroglycerin (Nitroglycerin (Sl Tab) 0.4 Mg) 1 tab Q5M PRN SL ANGINA; Start at 20:00 Insulin Glargine (Lantus) 45 unit DAILY@08 SC Last administered on 08/16/16 08 :09; Admin Dose 45 UNIT; Start 08/09/16 at 08:00 Losartan Potassium (Cozaar) 100 mg DAILY PO Last administered on 08/16/16 08: 13; Admin Dose 100 MG; Start 08/12/16 at 13:30 Insulin Human NPH (Humulin N) 28 unit DAILY@20 SC Last administered on 20:38; Admin Dose 28 UNIT; Start 08/12/16 at 20:00 Metoprolol Succinate (Toprol Xl) 50 mg BID PO Last administered on 08/16/16 08 :13; Admin Dose 50 MG; Start 08/13/16 at 21:00 Amlodipine Besylate (Norvasc) 2.5 mg DAILY PO Last administered on 08/16/16 08 :13; Admin Dose 2.5 MG; Start 08/14/16 at 09:00 Hydralazine HCl (Apresoline) 50 mg TID PO Last administered on 08/16/16 08:13 ; Admin Dose 50 MG; Start 08/13/16 at 13:00 Furosemide (Lasix) 20 mg DAILY@06 PO Last administered on 08/16/16 05:08; Admin Dose 20 MG; Start 08/15/16 at 06:00 MIGUEL RIVERA August 16, 2016 09:53
--- NOTE | 2016-08-16 18:14 | CONS ---
Date/Time of Note Date/Time of Note DATE: 08/16/16 TIME: 18:08 Assessment/Plan Assessment/Plan Problems: (1) DM w/o complication type II, uncontrolled Status: Chronic Comment: Good glycemic control. However, daily pt. w/ BG levels below goal before dinner. Will decrease Novolog w/ lunch from 18 to 16 units. Also FBG could be lower. In 160's-170's daily fasting so will increase NPH from 28 to 30 units qhs. Consultation Date/Type/Reason Admit Date/Time August 06, 2016 at 19:45 Initial Consult Date 08/08/16 Type of Consultation: Endocrinology Reason for Consultation T2DM OOC Referring Provider: MADHU CAZARES 24 HR Interval Summary Constitutional: improved (waiting for O2 at home before d/c), no complaints Detailed Summary Respiratory: no complaints Cardiovascular: no complaints Gastrointestinal: no complaints Genitourinary: no complaints Musculoskeletal: no complaints Neurologic: no complaints Exam/Review of Systems Vital Signs Vitals VS - Last 72 Hours, by Label Date Time Temp Pulse Resp B/P Pulse Ox O2 Delivery O2 Flow Rate FiO2 08/16/16 16:11 98.3 60 18 117/56 99 08/16/16 16:00 58 08/16/16 12:00 56 08/16/16 11:51 97.8 66 18 118/56 99 08/16/16 08:11 2.0 08/16/16 08:10 Nasal Cannula 2.0 08/16/16 08:02 96.9 65 16 150/65 100 08/16/16 08:00 66 08/16/16 05:05 65 98 30 08/16/16 04:41 57 08/16/16 04:00 98.3 58 19 104/63 98 08/16/16 03:56 62 99 30 08/16/16 01:22 69 99 30 08/16/16 00:57 60 08/16/16 00:15 65 98 30 08/16/16 00:10 98.2 58 20 132/63 100 08/15/16 22:02 62 98 30 08/15/16 20:33 60 08/15/16 20:06 98.2 59 18 118/55 95 08/15/16 19:30 Nasal Cannula 2.0 08/15/16 17:44 2.0 08/15/16 16:43 57 5/23/17 16:17 97.9 57 21 106/52 97 08/15/16 14:01 59 08/15/16 12:41 59 08/15/16 12:01 98.4 65 20 136/55 98 08/15/16 09:45 Nasal Cannula 2.0 08/15/16 08:13 62 08/15/16 07:51 98.8 67 21 122/57 100 08/15/16 04:45 67 98 30 08/15/16 04:18 97.8 67 18 146/67 98 08/15/16 04:00 66 08/15/16 03:00 66 97 30 08/15/16 01:20 63 98 30 08/15/16 00:17 98.0 71 18 160/68 96 08/15/16 00:07 69 08/14/16 23:40 65 98 30 08/14/16 21:25 65 98 30 08/14/16 21:06 97.4 67 18 121/56 98 08/14/16 21:00 2.0 08/14/16 20:27 63 08/14/16 19:15 Nasal Cannula 2.0 08/14/16 16:12 58 08/14/16 16:01 98.2 61 18 115/57 98 08/14/16 12:01 59 08/14/16 11:26 98.4 60 20 116/54 96 08/14/16 08:30 55 08/14/16 08:00 Nasal Cannula 2.0 08/14/16 07:36 98.1 65 21 126/58 96 08/14/16 05:52 2.0 08/14/16 05:07 69 98 30 08/14/16 04:15 98.1 56 18 101/49 96 08/14/16 04:11 54 08/14/16 02:05 72 98 30 08/14/16 01:03 62 99 30 08/14/16 00:20 59 08/13/16 23:58 98.1 66 20 109/52 99 08/13/16 22:38 3.0 08/13/16 22:37 75 96 30 08/13/16 20:25 97.6 58 18 104/47 96 08/13/16 20:19 59 08/13/16 18:14 98 3.0 Vital Signs Date Time Temp Pulse Resp B/P Pulse Ox O2 Delivery O2 Flow Rate FiO2 08/16/16 16:11 98.3 60 18 117/56 99 08/16/16 08:11 2.0 08/16/16 08:10 Nasal Cannula 08/16/16 05:05 30 Intake and Output 08/15/16 08/15/16 08/16/16 15:00 23:00 07:00 Intake Total 900 ml 800 ml Balance 900 ml 800 ml Exam Constitutional: alert, obese, oriented Psych: nl mood/affect, no complaints Respiratory: clear to auscultation, normal air movement Cardiovascular: nl pulses, regular rate and rhythm, No edema, No murmurs/extra sounds, No rub Gastrointestinal: bowel sounds, nl liver, spleen, non-tender, soft, No mass, No rebound or guarding Musculoskeletal: nl extremities to inspection Extremities: normal pulses, No clubbing, No cyanosis, No edema 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, nl mental status, nl speech, nl strength Additional Comments Bedside Glucose - 72 Hours Test 08/13/16 21:24 08/14/16 01:56 08/14/16 07:57 08/14/16 12:18 Bedside Glucose 116mg/dL (70-220) 156mg/dL (70-220) 150mg/dL (70-220) 156mg/dL (70-220) Test 08/14/16 17:48 08/14/16 20:10 08/15/16 08:07 08/15/16 12:23 Bedside Glucose 95mg/dL (70-220) 167mg/dL (70-220) 169mg/dL (70-220) 131mg/dL (70-220) Test 08/15/16 17:22 08/15/16 20:30 08/16/16 07:49 08/16/16 11:10 Bedside Glucose 89mg/dL (70-220) 144mg/dL (70-220) 163mg/dL (70-220) 151mg/dL (70-220) Test 08/16/16 16:53 Bedside Glucose 72mg/dL (70-220) Results Result Diagram: 08/16/16 0730 08/16/16 0730 Results 24 hrs Laboratory Tests Test 08/15/16 20:30 08/16/16 07:30 08/16/16 07:49 08/16/16 11:10 Bedside Glucose 144 163 151 White Blood Count 9.1 Red Blood Count 5.32 Hemoglobin 12.8 Hematocrit 43.2 Mean Corpuscular Volume 81.2 L Mean Corpuscular Hemoglobin 24.1 L Mean Corpuscular Hemoglobin Concent 29.6 L Red Cell Distribution Width 20.3 H Platelet Count 370 Mean Platelet Volume 9.1 Neutrophils % 76.7 Lymphocytes % 13.5 L Monocytes % 5.8 Eosinophils % 3.2 Basophils % 0.4 Nucleated Red Blood Cells % 0.0 Neutrophils # 7.0 Lymphocytes # 1.2 Monocytes # 0.5 Eosinophils # 0.3 Basophils # 0.0 Nucleated Red Blood Cells # 0.0 Sodium Level 141 Potassium Level 4.3 Chloride Level 94 L Carbon Dioxide Level 35 H Anion Gap 16 Blood Urea Nitrogen 45 H Creatinine 1.03 H Glucose Level 133 # Calcium Level 9.0 Test 08/16/16 16:53 Bedside Glucose 72 Medications Medications Current Medications Ondansetron HCl (Zofran Inj) 4 mg Q6H PRN IV NAUSEA AND/OR VOMITING; Start at 20:30 Morphine Sulfate (morphine) 2 mg Q4H PRN IV PAIN LEVEL 7-10; Start 08/06/16 at 20:30 Enoxaparin Sodium (Lovenox) 30 mg DAILY SC Last administered on 08/16/16 08:11 ; Admin Dose 30 MG; Start 08/07/16 at 09:00 Miscellaneous Information 1 ea NOTE XX ; Start 08/06/16 at 20:30 Diagnostic Test (Pha) (Accu-Chek) 1 ea 02 XX Last administered on 08/11/16 01: 49; Admin Dose 1 EA; Start 08/07/16 at 02:00 Miscellaneous Information 1 ea NOTE XX ; Start 08/06/16 at 20:30 Glucose (Glutose) 15 gm Q15M PRN PO DECREASED GLUCOSE; Start 08/06/16 at 20:30 Glucose (Glutose) 22.5 gm Q15M PRN PO DECREASED GLUCOSE; Start 08/06/16 at 20: 30 Dextrose (D50w Syringe) 25 ml Q15M PRN IV DECREASED GLUCOSE; Start 08/06/16 at 20:30 Dextrose (D50w Syringe) 50 ml Q15M PRN IV DECREASED GLUCOSE; Start 08/06/16 at 20:30 Glucagon (Glucagen) 1 mg Q15M PRN IM DECREASED GLUCOSE; Start 08/06/16 at 20:30 Glucose (Glutose) 15 gm Q15M PRN BUCCAL DECREASED GLUCOSE; Start 08/06/16 at 20 :30 Aripiprazole (Abilify) 10 mg DAILY PO Last administered on 08/16/16 08:14; Admin Dose 10 MG; Start 08/08/16 at 09:00 Atorvastatin Calcium (Lipitor) 40 mg HS PO Last administered on 08/15/16 20:31 ; Admin Dose 40 MG; Start 08/07/16 at 21:00 Brimonidine Tartrate (Alphagan P 0.15%) 1 drop BID BOTH EYES Last administered on 08/16/16 08:14; Admin Dose 1 DROP; Start 08/07/16 at 21:00 Sertraline HCl (Zoloft) 50 mg DAILY PO Last administered on 08/16/16 08:13; Admin Dose 50 MG; Start 08/08/16 at 09:00 Pantoprazole Sodium (Protonix) 20 mg BID@06,18 PO Last administered on 16:52; Admin Dose 20 MG; Start 08/07/16 at 18:00 Empaglifozin (Jardiance) 25 mg DAILY@08 PO Last administered on 08/16/16 08:12 ; Admin Dose 25 MG; Start 08/08/16 at 08:00 Linagliptin (Tradjenta) 5 mg DAILY@08 PO Last administered on 08/16/16 08:12; Admin Dose 5 MG; Start 08/08/16 at 08:00 Nitroglycerin (Nitroglycerin (Sl Tab) 0.4 Mg) 1 tab Q5M PRN SL ANGINA; Start at 20:00 Insulin Glargine (Lantus) 45 unit DAILY@08 SC Last administered on 08/16/16 08 :09; Admin Dose 45 UNIT; Start 08/09/16 at 08:00 Losartan Potassium (Cozaar) 100 mg DAILY PO Last administered on 08/16/16 08: 13; Admin Dose 100 MG; Start 08/12/16 at 13:30 Insulin Human NPH (Humulin N) 28 unit DAILY@20 SC Last administered on 20:38; Admin Dose 28 UNIT; Start 08/12/16 at 20:00 Metoprolol Succinate (Toprol Xl) 50 mg BID PO Last administered on 08/16/16 08 :13; Admin Dose 50 MG; Start 08/13/16 at 21:00 Amlodipine Besylate (Norvasc) 2.5 mg DAILY PO Last administered on 08/16/16 08 :13; Admin Dose 2.5 MG; Start 08/14/16 at 09:00 Hydralazine HCl (Apresoline) 50 mg TID PO Last administered on 08/16/16 14:11 ; Admin Dose 50 MG; Start 08/13/16 at 13:00 Furosemide (Lasix) 20 mg DAILY@06 PO Last administered on 08/16/16 05:08; Admin Dose 20 MG; Start 08/15/16 at 06:00 TONY KELLY MD August 16, 2016 18:14
--- NOTE | 2016-08-16 18:36 | PN ---
Date/Time of Note Date/Time of Note DATE: 08/16/16 TIME: 18:33 Assessment/Plan VTE Prophylaxis VTE Prophylaxis Intervention: SCD's Lines/Catheters IV [facility]ter Type (from [facility] [place] Urinary Cath still in place: No Assessment/Plan Chief Complaint/Hosp Course Patient's continues on BiPAP overnight, denies any shortness of breath any chest pain at rest, waist awaits for arrangement for BiPAP at home. ASSESSMENT AND PLAN: - Diastolic acute on chronic congestive heart failure exacerbation. Continue Lasix. Dr. Cota is following patient. Cardiology consultation. Continue to monitor electrolytes. - Possible sleep apnea, continue BiPAP. is following in pulmonology consultation - Hypertension. Continue Toprol and Norvasc. - Acute coronary syndrome ruled out, troponin negative 3, stress test with no ischemia - Diabetes mellitus type 2. Dr. Lyon is following in endocrinology consultation. - Acute on chronic kidney disease. Continue to monitor BUN and creatinine. - Hyperlipidemia. Continue statin. - Morbid obesity with BMI 50. Weight loss advised. Continue Lovenox for deep venous thrombosis prophylaxis and Pepcid for peptic ulcer disease prophylaxis. Further recommendations based on clinical course. Plan of care discussed with Dr. Garza. Problems: Exam/Review of Systems Vital Signs Vitals Vital Signs Date Time Temp Pulse Resp B/P Pulse Ox O2 Delivery O2 Flow Rate FiO2 08/16/16 16:11 98.3 60 18 117/56 99 08/16/16 08:11 2.0 08/16/16 08:10 Nasal Cannula 08/16/16 05:05 30 Intake and Output 08/15/16 08/15/16 08/16/16 15:00 23:00 07:00 Intake Total 900 ml 800 ml Balance 900 ml 800 ml Exam Constitutional: alert, oriented Psych: no complaints Head: normocephalic Eyes: nl conjunctiva ENMT: nl external ears & nose Neck: non-tender, supple Respiratory: clear to auscultation, normal air movement Cardiovascular: nl pulses, regular rate and rhythm Gastrointestinal: soft Extremities: normal pulses Neurological: [employer]ATION [employer]GER II-XII intact Results Result Diagram: 08/16/16 0730 08/16/16 0730 Results 24 hrs Laboratory Tests Test 08/15/16 20:30 08/16/16 07:30 08/16/16 07:49 08/16/16 11:10 Bedside Glucose 144 163 151 White Blood Count 9.1 Red Blood Count 5.32 Hemoglobin 12.8 Hematocrit 43.2 Mean Corpuscular Volume 81.2 L Mean Corpuscular Hemoglobin 24.1 L Mean Corpuscular Hemoglobin Concent 29.6 L Red Cell Distribution Width 20.3 H Platelet Count 370 Mean Platelet Volume 9.1 Neutrophils % 76.7 Lymphocytes % 13.5 L Monocytes % 5.8 Eosinophils % 3.2 Basophils % 0.4 Nucleated Red Blood Cells % 0.0 Neutrophils # 7.0 Lymphocytes # 1.2 Monocytes # 0.5 Eosinophils # 0.3 Basophils # 0.0 Nucleated Red Blood Cells # 0.0 Sodium Level 141 Potassium Level 4.3 Chloride Level 94 L Carbon Dioxide Level 35 H Anion Gap 16 Blood Urea Nitrogen 45 H Creatinine 1.03 H Glucose Level 133 # Calcium Level 9.0 Test 08/16/16 16:53 Bedside Glucose 72 Medications Medications Current Medications Ondansetron HCl (Zofran Inj) 4 mg Q6H PRN IV NAUSEA AND/OR VOMITING; Start at 20:30 Morphine Sulfate (morphine) 2 mg Q4H PRN IV PAIN LEVEL 7-10; Start 08/06/16 at 20:30 Enoxaparin Sodium (Lovenox) 30 mg DAILY SC Last administered on 08/16/16 08:11 ; Admin Dose 30 MG; Start 08/07/16 at 09:00 Miscellaneous Information 1 ea NOTE XX ; Start 08/06/16 at 20:30 Diagnostic Test (Pha) (Accu-Chek) 1 ea 02 XX Last administered on 08/11/16 01: 49; Admin Dose 1 EA; Start 08/07/16 at 02:00 Miscellaneous Information 1 ea NOTE XX ; Start 08/06/16 at 20:30 Glucose (Glutose) 15 gm Q15M PRN PO DECREASED GLUCOSE; Start 08/06/16 at 20:30 Glucose (Glutose) 22.5 gm Q15M PRN PO DECREASED GLUCOSE; Start 08/06/16 at 20: 30 Dextrose (D50w Syringe) 25 ml Q15M PRN IV DECREASED GLUCOSE; Start 08/06/16 at 20:30 Dextrose (D50w Syringe) 50 ml Q15M PRN IV DECREASED GLUCOSE; Start 08/06/16 at 20:30 Glucagon (Glucagen) 1 mg Q15M PRN IM DECREASED GLUCOSE; Start 08/06/16 at 20:30 Glucose (Glutose) 15 gm Q15M PRN BUCCAL DECREASED GLUCOSE; Start 08/06/16 at 20 :30 Aripiprazole (Abilify) 10 mg DAILY PO Last administered on 08/16/16 08:14; Admin Dose 10 MG; Start 08/08/16 at 09:00 Atorvastatin Calcium (Lipitor) 40 mg HS PO Last administered on 08/15/16 20:31 ; Admin Dose 40 MG; Start 08/07/16 at 21:00 Brimonidine Tartrate (Alphagan P 0.15%) 1 drop BID BOTH EYES Last administered on 08/16/16 08:14; Admin Dose 1 DROP; Start 08/07/16 at 21:00 Sertraline HCl (Zoloft) 50 mg DAILY PO Last administered on 08/16/16 08:13; Admin Dose 50 MG; Start 08/08/16 at 09:00 Pantoprazole Sodium (Protonix) 20 mg BID@06,18 PO Last administered on 16:52; Admin Dose 20 MG; Start 08/07/16 at 18:00 Empaglifozin (Jardiance) 25 mg DAILY@08 PO Last administered on 08/16/16 08:12 ; Admin Dose 25 MG; Start 08/08/16 at 08:00 Linagliptin (Tradjenta) 5 mg DAILY@08 PO Last administered on 08/16/16 08:12; Admin Dose 5 MG; Start 08/08/16 at 08:00 Nitroglycerin (Nitroglycerin (Sl Tab) 0.4 Mg) 1 tab Q5M PRN SL ANGINA; Start at 20:00 Insulin Glargine (Lantus) 45 unit DAILY@08 SC Last administered on 08/16/16 08 :09; Admin Dose 45 UNIT; Start 08/09/16 at 08:00 Losartan Potassium (Cozaar) 100 mg DAILY PO Last administered on 08/16/16 08: 13; Admin Dose 100 MG; Start 08/12/16 at 13:30 Metoprolol Succinate (Toprol Xl) 50 mg BID PO Last administered on 08/16/16 08 :13; Admin Dose 50 MG; Start 08/13/16 at 21:00 Amlodipine Besylate (Norvasc) 2.5 mg DAILY PO Last administered on 08/16/16 08 :13; Admin Dose 2.5 MG; Start 08/14/16 at 09:00 Hydralazine HCl (Apresoline) 50 mg TID PO Last administered on 08/16/16 14:11 ; Admin Dose 50 MG; Start 08/13/16 at 13:00 Furosemide (Lasix) 20 mg DAILY@06 PO Last administered on 08/16/16 05:08; Admin Dose 20 MG; Start 08/15/16 at 06:00 Insulin Human NPH (Humulin N) 30 unit DAILY@20 SC ; Start 08/16/16 at 20:00 MADHU CAZARES August 16, 2016 18:35
--- NOTE | 2016-08-16 19:16 | CONS ---
Date/Time of Note Date/Time of Note DATE: 08/16/16 TIME: 19:09 Assessment/Plan Assessment/Plan Chief Complaint/Hosp Course IMPRESSION: 1. Shortness of breath 2. Elevated BNP, assess for congestive heart failure. 3. Chest pain, assess for acute coronary syndrome.-negative trop x 3/No ischemia by lexiscan 4. Abnormal electrocardiogram. Assess for acute coronary syndrome. 5. Hypertensive urgency, emergency. Currently improved on oral antihypertensives. 6. Diabetes mellitus, uncontrolled blood sugars. 7. Anemia. 8. Leukocytosis. 9. Psych disorder. 10. CHF-diastolic acute on chronic-improved volume status by exam/cxr 11.Possible DAVID 12. Renal failure-improving Recc: -Tele -serial ecg's -Continue Toprol -continue imdur/hydralazine/losartan -Will d/c low dose norvasc and follow BP/sx for any recurrent chest pain which then could be due to vasospastic disease -continue lasix diuresis PO daily -continue plavix -Continue nighttime CPAP and BIPAP/CPAP set up at home Problems: Consultation Date/Type/Reason Admit Date/Time August 06, 2016 at 19:45 Initial Consult Date 08/08/16 Type of Consultation: cardiology Reason for Consultation chest pain/sob Referring Provider: MADHU CAZARES Exam/Review of Systems Vital Signs Vitals Vital Signs Date Time Temp Pulse Resp B/P Pulse Ox O2 Delivery O2 Flow Rate FiO2 08/16/16 16:11 98.3 60 18 117/56 99 08/16/16 08:11 2.0 08/16/16 08:10 Nasal Cannula 08/16/16 05:05 30 Intake and Output 08/15/16 08/15/16 08/16/16 15:00 23:00 07:00 Intake Total 900 ml 800 ml Balance 900 ml 800 ml Exam Review of Systems: CONSTITUTIONAL: No fevers, chills. PULMONARY: improved sob CARDIOVASCULAR: No chest pain/palpitations GASTROINTESTINAL: No nausea/vomiting. GENITOURINARY: No hematuria/dysuria. MUSCULOSKELETAL: No myagias/arthalgias. PSYCHIATRIC: The patient denies depression. NEUROLOGIC: No weakness Constitutional: alert, oriented Psych: no complaints Head: normocephalic ENMT: mucosa pink and moist Neck: jvd, supple Respiratory: clear to auscultation Cardiovascular: regular rate and rhythm Gastrointestinal: non-tender, soft Musculoskeletal: muscle tone (normal) Extremities: edema (none) Neurological: other (No focal deficits) Results Result Diagram: 08/16/1672908/16/16 0730 Results 24 hrs Laboratory Tests Test 08/15/16 20:30 08/16/16 07:30 08/16/16 07:49 08/16/16 11:10 Bedside Glucose 144 163 151 White Blood Count 9.1 Red Blood Count 5.32 Hemoglobin 12.8 Hematocrit 43.2 Mean Corpuscular Volume 81.2 L Mean Corpuscular Hemoglobin 24.1 L Mean Corpuscular Hemoglobin Concent 29.6 L Red Cell Distribution Width 20.3 H Platelet Count 370 Mean Platelet Volume 9.1 Neutrophils % 76.7 Lymphocytes % 13.5 L Monocytes % 5.8 Eosinophils % 3.2 Basophils % 0.4 Nucleated Red Blood Cells % 0.0 Neutrophils # 7.0 Lymphocytes # 1.2 Monocytes # 0.5 Eosinophils # 0.3 Basophils # 0.0 Nucleated Red Blood Cells # 0.0 Sodium Level 141 Potassium Level 4.3 Chloride Level 94 L Carbon Dioxide Level 35 H Anion Gap 16 Blood Urea Nitrogen 45 H Creatinine 1.03 H Glucose Level 133 # Calcium Level 9.0 Test 08/16/16 16:53 Bedside Glucose 72 Medications Medications Current Medications Ondansetron HCl (Zofran Inj) 4 mg Q6H PRN IV NAUSEA AND/OR VOMITING; Start at 20:30 Morphine Sulfate (morphine) 2 mg Q4H PRN IV PAIN LEVEL 7-10; Start 08/06/16 at 20:30 Enoxaparin Sodium (Lovenox) 30 mg DAILY SC Last administered on 08/16/16 08:11 ; Admin Dose 30 MG; Start 08/07/16 at 09:00 Miscellaneous Information 1 ea NOTE XX ; Start 08/06/16 at 20:30 Diagnostic Test (Pha) (Accu-Chek) 1 ea 02 XX Last administered on 08/11/16 01: 49; Admin Dose 1 EA; Start 08/07/16 at 02:00 Miscellaneous Information 1 ea NOTE XX ; Start 08/06/16 at 20:30 Glucose (Glutose) 15 gm Q15M PRN PO DECREASED GLUCOSE; Start 08/06/16 at 20:30 Glucose (Glutose) 22.5 gm Q15M PRN PO DECREASED GLUCOSE; Start 08/06/16 at 20: 30 Dextrose (D50w Syringe) 25 ml Q15M PRN IV DECREASED GLUCOSE; Start 08/06/16 at 20:30 Dextrose (D50w Syringe) 50 ml Q15M PRN IV DECREASED GLUCOSE; Start 08/06/16 at 20:30 Glucagon (Glucagen) 1 mg Q15M PRN IM DECREASED GLUCOSE; Start 08/06/16 at 20:30 Glucose (Glutose) 15 gm Q15M PRN BUCCAL DECREASED GLUCOSE; Start 08/06/16 at 20 :30 Aripiprazole (Abilify) 10 mg DAILY PO Last administered on 08/16/16 08:14; Admin Dose 10 MG; Start 08/08/16 at 09:00 Atorvastatin Calcium (Lipitor) 40 mg HS PO Last administered on 08/15/16 20:31 ; Admin Dose 40 MG; Start 08/07/16 at 21:00 Brimonidine Tartrate (Alphagan P 0.15%) 1 drop BID BOTH EYES Last administered on 08/16/16 08:14; Admin Dose 1 DROP; Start 08/07/16 at 21:00 Sertraline HCl (Zoloft) 50 mg DAILY PO Last administered on 08/16/16 08:13; Admin Dose 50 MG; Start 08/08/16 at 09:00 Pantoprazole Sodium (Protonix) 20 mg BID@06,18 PO Last administered on 16:52; Admin Dose 20 MG; Start 08/07/16 at 18:00 Empaglifozin (Jardiance) 25 mg DAILY@08 PO Last administered on 08/16/16 08:12 ; Admin Dose 25 MG; Start 08/08/16 at 08:00 Linagliptin (Tradjenta) 5 mg DAILY@08 PO Last administered on 08/16/16 08:12; Admin Dose 5 MG; Start 08/08/16 at 08:00 Nitroglycerin (Nitroglycerin (Sl Tab) 0.4 Mg) 1 tab Q5M PRN SL ANGINA; Start at 20:00 Insulin Glargine (Lantus) 45 unit DAILY@08 SC Last administered on 08/16/16 08 :09; Admin Dose 45 UNIT; Start 08/09/16 at 08:00 Losartan Potassium (Cozaar) 100 mg DAILY PO Last administered on 08/16/16 08: 13; Admin Dose 100 MG; Start 08/12/16 at 13:30 Metoprolol Succinate (Toprol Xl) 50 mg BID PO Last administered on 08/16/16 08 :13; Admin Dose 50 MG; Start 08/13/16 at 21:00 Amlodipine Besylate (Norvasc) 2.5 mg DAILY PO Last administered on 08/16/16 08 :13; Admin Dose 2.5 MG; Start 08/14/16 at 09:00 Hydralazine HCl (Apresoline) 50 mg TID PO Last administered on 08/16/16 14:11 ; Admin Dose 50 MG; Start 08/13/16 at 13:00 Furosemide (Lasix) 20 mg DAILY@06 PO Last administered on 08/16/16 05:08; Admin Dose 20 MG; Start 08/15/16 at 06:00 Insulin Human NPH (Humulin N) 30 unit DAILY@20 SC ; Start 08/16/16 at 20:00 TERRIE DUNN August 16, 2016 19:16
[2016-08-16] MEDS: ATORVASTATIN 40 MG TAB PO SCH (20:32)
[2016-08-16] MEDS: NPH, HUMAN INSULIN ISOPHANE 3ML VIAL SC SCH (20:36)
[2016-08-17] VITALS (16 sets, daily range): BP systolic 102–122; BP diastolic 50–64; PULSE 62–80; RESP 18–20
[2016-08-17] MEDS: ACCUCHECK AT 2AM (Patients on SS coverage) XX SCH (01:56)
[2016-08-17] MEDS: FUROSEMIDE 20 MG TAB PO SCH (05:18)
[2016-08-17] MEDS: PANTOPRAZOLE SODIUM 20 MG TABEC PO SCH ×2 (05:18→17:00)
[2016-08-17 07:16] LABS: ADD SCAN DIFF NO
[2016-08-17 07:26] LABS: ABNORMAL IP MESSAGE 1; BASOPHILS % 0.4 % (0.0-2.0); EOSINOPHILS # 0.3 10^3/ul (0.0-0.5); EOSINOPHILS % 2.9 % (0.0-7.0); HEMATOCRIT 41.5 % (37.0-47.0); HEMOGLOBIN 11.9 g/dl (12.0-16.0); LYMPHOCYTES # 1.2 10^3/ul (0.8-2.9); MEAN CORPUSCULAR HEMOGLOBIN 23.5 pg (29.0-33.0); MEAN CORPUSCULAR HGB CONC 28.7 g/dl (32.0-37.0); MONOCYTE # 0.6 10^3/ul (0.3-0.9); MONOCYTES % 5.9 % (0.0-11.0); NEUTROPHILS % 78.3 % (39.0-77.0); PLATELET COUNT 324 10^3/UL (140-415); RED BLOOD COUNT 5.06 10^6/ul (4.20-5.40); RED CELL DISTRIBUTION WIDTH 20.5 % (11.5-14.5); WHITE BLOOD COUNT 10.2 10^3/ul (4.8-10.8)
[2016-08-17] MEDS: [UNRECOGNIZED DRUG - OTHER] SC SCH ×3 (07:30→17:08)
[2016-08-17 07:34] LABS: CALCIUM 9.3 mg/dl (8.4-10.2); CREATININE 1.28 mg/dl (0.44-1.00); POTASSIUM 4.9 mmol/L (3.5-5.1)
[2016-08-17] MEDS: SERTRALINE 50 MG TAB PO SCH (08:27)
[2016-08-17] MEDS: METOPROLOL (XL) 50 MG TAB PO SCH ×2 (08:27→21:25)
[2016-08-17] MEDS: LINAGLIPTIN 5 MG TABLET PO SCH (08:27)
[2016-08-17] MEDS: EMPAGLIFLOZIN 10 MG TABLET PO SCH (08:27)
[2016-08-17] MEDS: ARIPIPRAZOLE 10 MG TAB PO SCH (08:27)
[2016-08-17] MEDS: LOSARTAN 50 MG TAB PO SCH (08:28)
[2016-08-17] MEDS: BRIMONIDINE 0.15% 5 ML OPH BOTH EYES SCH ×2 (08:29→21:25)
[2016-08-17] MEDS: INSULIN ASPART [NOVOLOG] 3 ML PEN SC SCH ×6 (08:34→21:00)
[2016-08-17] MEDS: ENOXAPARIN 30 MG/0.3 ML SYG SC SCH (08:35)
[2016-08-17] MEDS: INSULIN GLARGINE [LANtus] 3 ML PEN SC SCH (08:35)
--- NOTE | 2016-08-17 11:21 | CONS ---
Date/Time of Note Date/Time of Note DATE: 08/17/16 TIME: :17 Assessment/Plan Assessment/Plan Additional Assessment/Plan Assessment recommendations; next 1. Patient admitted with shortness of breath due to mild CHF exacerbation due to diastolic dysfunction. Clinically markedly improved. 2. Mild hypercapnia, likely from underlying obesity/hypoventilation syndrome and possibly underlying sleep apnea. 3. History of hypertension diabetes. 4. Negative nuclear cardiac SPECT test. Patient be discharged home on home BiPAP to be used nocturnally. She will need to have a sleep study done on outpatient basis. Consultation Date/Type/Reason Admit Date/Time August 06, 2016 at 19:45 Initial Consult Date 08/08/16 Type of Consultation: Pulmonary Referring Provider: MADHU CAZARES 24 HR Interval Summary Free Text/Dictation Patient condition is stable. Denies any shortness of breath, chest pain, patient has been ambulatory. General exam; elderly lady, awake alert currently in no distress. Exam/Review of Systems Vital Signs Vitals Vital Signs Date Time Temp Pulse Resp B/P Pulse Ox O2 Delivery O2 Flow Rate FiO2 08/17/16 08:30 80 08/17/16 08:30 Nasal Cannula 2.0 08/17/16 07:32 97.8 18 119/57 100 08/17/16 04:25 30 Intake and Output 08/16/16 08/16/16 08/17/16 15:00 23:00 07:00 Intake Total 1200 ml 900 ml Balance 1200 ml 900 ml Exam HEENT exam; supple neck, JVD difficult to see because of thick neck. Patient is edentulous. Pupils are midsize and reactive to light. No neck masses. No thyromegaly. No lymphadenopathy. Chest examined; clear to auscultation. S1-S2 audible, no murmurs. Regular rhythm. Abdomen examination; soft, protuberant. No organomegaly. Nontender. Bowel sounds audible. Extremity exam; no peripheral edema. 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 Results Result Diagram: 08/17/16 0700 08/17/16 0700 Results 24 hrs Laboratory Tests Test 08/16/16 16:53 08/16/16 20:34 08/17/16 07:00 08/17/16 07:54 Bedside Glucose 72 75 179 White Blood Count 10.2 Red Blood Count 5.06 Hemoglobin 11.9 L Hematocrit 41.5 Mean Corpuscular Volume 82.0 Mean Corpuscular Hemoglobin 23.5 L Mean Corpuscular Hemoglobin Concent 28.7 L Red Cell Distribution Width 20.5 H Platelet Count 324 Mean Platelet Volume 9.0 Neutrophils % 78.3 H Lymphocytes % 12.0 L Monocytes % 5.9 Eosinophils % 2.9 Basophils % 0.4 Nucleated Red Blood Cells % 0.0 Neutrophils # 8.0 H Lymphocytes # 1.2 Monocytes # 0.6 Eosinophils # 0.3 Basophils # 0.0 Nucleated Red Blood Cells # 0.0 Sodium Level 138 Potassium Level 4.9 Chloride Level 96 L Carbon Dioxide Level 36 H Anion Gap 11 Blood Urea Nitrogen 46 H Creatinine 1.28 H Glucose Level 168 Calcium Level 9.3 Medications Medications Current Medications Ondansetron HCl (Zofran Inj) 4 mg Q6H PRN IV NAUSEA AND/OR VOMITING; Start at 20:30 Morphine Sulfate (morphine) 2 mg Q4H PRN IV PAIN LEVEL 7-10; Start 08/06/16 at 20:30 Enoxaparin Sodium (Lovenox) 30 mg DAILY SC Last administered on 08/17/16 08:35 ; Admin Dose 30 MG; Start 08/07/16 at 09:00 Miscellaneous Information 1 ea NOTE XX ; Start 08/06/16 at 20:30 Diagnostic Test (Pha) (Accu-Chek) 1 ea 02 XX Last administered on 08/11/16 01: 49; Admin Dose 1 EA; Start 08/07/16 at 02:00 Miscellaneous Information 1 ea NOTE XX ; Start 08/06/16 at 20:30 Glucose (Glutose) 15 gm Q15M PRN PO DECREASED GLUCOSE; Start 08/06/16 at 20:30 Glucose (Glutose) 22.5 gm Q15M PRN PO DECREASED GLUCOSE; Start 08/06/16 at 20: 30 Dextrose (D50w Syringe) 25 ml Q15M PRN IV DECREASED GLUCOSE; Start 08/06/16 at 20:30 Dextrose (D50w Syringe) 50 ml Q15M PRN IV DECREASED GLUCOSE; Start 08/06/16 at 20:30 Glucagon (Glucagen) 1 mg Q15M PRN IM DECREASED GLUCOSE; Start 08/06/16 at 20:30 Glucose (Glutose) 15 gm Q15M PRN BUCCAL DECREASED GLUCOSE; Start 08/06/16 at 20 :30 Aripiprazole (Abilify) 10 mg DAILY PO Last administered on 08/17/16 08:27; Admin Dose 10 MG; Start 08/08/16 at 09:00 Atorvastatin Calcium (Lipitor) 40 mg HS PO Last administered on 08/16/16 20:32 ; Admin Dose 40 MG; Start 08/07/16 at 21:00 Brimonidine Tartrate (Alphagan P 0.15%) 1 drop BID BOTH EYES Last administered on 08/17/16 08:29; Admin Dose 1 DROP; Start 08/07/16 at 21:00 Sertraline HCl (Zoloft) 50 mg DAILY PO Last administered on 08/17/16 08:27; Admin Dose 50 MG; Start 08/08/16 at 09:00 Pantoprazole Sodium (Protonix) 20 mg BID@06,18 PO Last administered on 05:18; Admin Dose 20 MG; Start 08/07/16 at 18:00 Empaglifozin (Jardiance) 25 mg DAILY@08 PO Last administered on 08/17/16 08:27 ; Admin Dose 25 MG; Start 08/08/16 at 08:00 Linagliptin (Tradjenta) 5 mg DAILY@08 PO Last administered on 08/17/16 08:27; Admin Dose 5 MG; Start 08/08/16 at 08:00 Nitroglycerin (Nitroglycerin (Sl Tab) 0.4 Mg) 1 tab Q5M PRN SL ANGINA; Start at 20:00 Insulin Glargine (Lantus) 45 unit DAILY@08 SC Last administered on 08/17/16 08 :35; Admin Dose 45 UNIT; Start 08/09/16 at 08:00 Losartan Potassium (Cozaar) 100 mg DAILY PO Last administered on 08/17/16 08: 28; Admin Dose 100 MG; Start 08/12/16 at 13:30 Metoprolol Succinate (Toprol Xl) 50 mg BID PO Last administered on 08/17/16 08 :27; Admin Dose 50 MG; Start 08/13/16 at 21:00 Amlodipine Besylate (Norvasc) 2.5 mg DAILY PO Last administered on 08/16/16 08 :13; Admin Dose 2.5 MG; Start 08/14/16 at 09:00; Status Future Hold Hydralazine HCl (Apresoline) 50 mg TID PO Last administered on 08/17/16 08:28 ; Admin Dose 50 MG; Start 08/13/16 at 13:00 Furosemide (Lasix) 20 mg DAILY@06 PO Last administered on 08/17/16 05:18; Admin Dose 20 MG; Start 08/15/16 at 06:00 Insulin Human NPH (Humulin N) 30 unit DAILY@20 SC Last administered on 20:36; Admin Dose 30 UNIT; Start 08/16/16 at 20:00 MIGUEL RIVERA August 17, 2016 11:21
[2016-08-17] MEDS ORDERED: INSULIN ASPART [NOVOLOG] 3 ML PEN SC SCH (12:00)
--- NOTE | 2016-08-17 17:56 | PN ---
Date/Time of Note Date/Time of Note DATE: 08/17/16 TIME: 17:52 Assessment/Plan VTE Prophylaxis VTE Prophylaxis Intervention: other Lines/Catheters IV [facility] Type (from [facility]): Peripheral IV Urinary Cath still in place: No Assessment/Plan Assessment/Plan - Diastolic acute on chronic congestive heart failure exacerbation. Continue Lasix. Dr. Cota is following patient. Cardiology consultation. Continue to monitor electrolytes. - Possible sleep apnea, continue BiPAP. is following in pulmonology consultation - Hypertension. Continue Toprol and Norvasc. - Acute coronary syndrome ruled out, troponin negative 3, stress test with no ischemia - Diabetes mellitus type 2. Dr. Lyon is following in endocrinology consultation. - Acute on chronic kidney disease. Continue to monitor BUN and creatinine. - Hyperlipidemia. Continue statin. - Morbid obesity with BMI 50. Weight loss advised. Continue Lovenox for deep venous thrombosis prophylaxis and Pepcid for peptic ulcer disease prophylaxis. Further recommendations based on clinical course. Plan of care discussed with Dr. Garza. Subjective 24 Hr Interval Summary Free Text/Dictation nad, on BIPAP AT NIGHT cR -1.28, BASELINE 1.17. Will do Wilson Evaluation. dw staff ENT: no complaints Respiratory: shortness of breath Cardiovascular: no complaints Gastrointestinal: no complaints Genitourinary: no complaints Exam/Review of Systems Vital Signs Vitals Vital Signs Date Time Temp Pulse Resp B/P Pulse Ox O2 Delivery O2 Flow Rate FiO2 08/17/16 16:22 65 08/17/16 16:10 3.0 08/17/16 15:46 97.6 18 121/59 94 08/17/16 08:30 Nasal Cannula 08/17/16 04:25 30 Intake and Output 08/16/16 08/16/16 08/17/16 15:00 23:00 07:00 Intake Total 1200 ml 900 ml Balance 1200 ml 900 ml Exam Constitutional: alert, obese, oriented Psych: nl mood/affect Eyes: EOMI, nl sclera ENMT: nl external ears & nose Respiratory: diminished breath sounds, normal air movement Cardiovascular: nl pulses Gastrointestinal: non-tender, soft Musculoskeletal: nl extremities to inspection Extremities: normal pulses Neurological: nl mental status, nl speech Skin: nl turgor Lymph: nontender Results Result Diagram: 08/17/16 0700 08/17/16 0700 Results 24 hrs Laboratory Tests Test 08/16/16 20:34 08/17/16 07:00 08/17/16 07:54 08/17/16 11:58 Bedside Glucose 75 179 190 White Blood Count 10.2 Red Blood Count 5.06 Hemoglobin 11.9 L Hematocrit 41.5 Mean Corpuscular Volume 82.0 Mean Corpuscular Hemoglobin 23.5 L Mean Corpuscular Hemoglobin Concent 28.7 L Red Cell Distribution Width 20.5 H Platelet Count 324 Mean Platelet Volume 9.0 Neutrophils % 78.3 H Lymphocytes % 12.0 L Monocytes % 5.9 Eosinophils % 2.9 Basophils % 0.4 Nucleated Red Blood Cells % 0.0 Neutrophils # 8.0 H Lymphocytes # 1.2 Monocytes # 0.6 Eosinophils # 0.3 Basophils # 0.0 Nucleated Red Blood Cells # 0.0 Sodium Level 138 Potassium Level 4.9 Chloride Level 96 L Carbon Dioxide Level 36 H Anion Gap 11 Blood Urea Nitrogen 46 H Creatinine 1.28 H Glucose Level 168 Calcium Level 9.3 Test 08/17/16 17:00 Bedside Glucose 72 Medications Medications Current Medications Ondansetron HCl (Zofran Inj) 4 mg Q6H PRN IV NAUSEA AND/OR VOMITING; Start at 20:30 Morphine Sulfate (morphine) 2 mg Q4H PRN IV PAIN LEVEL 7-10; Start 08/06/16 at 20:30 Enoxaparin Sodium (Lovenox) 30 mg DAILY SC Last administered on 08/17/16 08:35 ; Admin Dose 30 MG; Start 08/07/16 at 09:00 Miscellaneous Information 1 ea NOTE XX ; Start 08/06/16 at 20:30 Diagnostic Test (Pha) (Accu-Chek) 1 ea 02 XX Last administered on 08/11/16 01: 49; Admin Dose 1 EA; Start 08/07/16 at 02:00 Miscellaneous Information 1 ea NOTE XX ; Start 08/06/16 at 20:30 Glucose (Glutose) 15 gm Q15M PRN PO DECREASED GLUCOSE; Start 08/06/16 at 20:30 Glucose (Glutose) 22.5 gm Q15M PRN PO DECREASED GLUCOSE; Start 08/06/16 at 20: 30 Dextrose (D50w Syringe) 25 ml Q15M PRN IV DECREASED GLUCOSE; Start 08/06/16 at 20:30 Dextrose (D50w Syringe) 50 ml Q15M PRN IV DECREASED GLUCOSE; Start 08/06/16 at 20:30 Glucagon (Glucagen) 1 mg Q15M PRN IM DECREASED GLUCOSE; Start 08/06/16 at 20:30 Glucose (Glutose) 15 gm Q15M PRN BUCCAL DECREASED GLUCOSE; Start 08/06/16 at 20 :30 Aripiprazole (Abilify) 10 mg DAILY PO Last administered on 08/17/16 08:27; Admin Dose 10 MG; Start 08/08/16 at 09:00 Atorvastatin Calcium (Lipitor) 40 mg HS PO Last administered on 08/16/16 20:32 ; Admin Dose 40 MG; Start 08/07/16 at 21:00 Brimonidine Tartrate (Alphagan P 0.15%) 1 drop BID BOTH EYES Last administered on 08/17/16 08:29; Admin Dose 1 DROP; Start 08/07/16 at 21:00 Sertraline HCl (Zoloft) 50 mg DAILY PO Last administered on 08/17/16 08:27; Admin Dose 50 MG; Start 08/08/16 at 09:00 Pantoprazole Sodium (Protonix) 20 mg BID@06,18 PO Last administered on 17:00; Admin Dose 20 MG; Start 08/07/16 at 18:00 Empaglifozin (Jardiance) 25 mg DAILY@08 PO Last administered on 08/17/16 08:27 ; Admin Dose 25 MG; Start 08/08/16 at 08:00 Linagliptin (Tradjenta) 5 mg DAILY@08 PO Last administered on 08/17/16 08:27; Admin Dose 5 MG; Start 08/08/16 at 08:00 Nitroglycerin (Nitroglycerin (Sl Tab) 0.4 Mg) 1 tab Q5M PRN SL ANGINA; Start at 20:00 Insulin Glargine (Lantus) 45 unit DAILY@08 SC Last administered on 08/17/16 08 :35; Admin Dose 45 UNIT; Start 08/09/16 at 08:00 Losartan Potassium (Cozaar) 100 mg DAILY PO Last administered on 08/17/16 08: 28; Admin Dose 100 MG; Start 08/12/16 at 13:30 Metoprolol Succinate (Toprol Xl) 50 mg BID PO Last administered on 08/17/16 08 :27; Admin Dose 50 MG; Start 08/13/16 at 21:00 Amlodipine Besylate (Norvasc) 2.5 mg DAILY PO Last administered on 08/16/16 08 :13; Admin Dose 2.5 MG; Start 08/14/16 at 09:00; Status Future Hold Hydralazine HCl (Apresoline) 50 mg TID PO Last administered on 08/17/16 13:14 ; Admin Dose 50 MG; Start 08/13/16 at 13:00 Furosemide (Lasix) 20 mg DAILY@06 PO Last administered on 08/17/16 05:18; Admin Dose 20 MG; Start 08/15/16 at 06:00 Insulin Human NPH (Humulin N) 30 unit DAILY@20 SC Last administered on 20:36; Admin Dose 30 UNIT; Start 08/16/16 at 20:00 ENRRIQUE AGUILAR August 17, 2016 17:55
--- NOTE | 2016-08-17 18:16 | CONS ---
Date/Time of Note Date/Time of Note DATE: 08/17/16 TIME: 18:13 Assessment/Plan Assessment/Plan Problems: (1) DM w/o complication type II, uncontrolled Status: Chronic Comment: Glucose levels remain in fairly good control. Remains w/ hyperglycemia in the mornings and near hypoglycemia pre-dinner despite insulin dose adjustments last night. Will the Novolog w/ lunch again from 15 to 12 units. Cont. NPH 30 qhs and reeval tomorrow, provided pt. still in house Consultation Date/Type/Reason Admit Date/Time August 06, 2016 at 19:45 Initial Consult Date 08/08/16 Type of Consultation: Endocrinology Reason for Consultation T2DM OOC Referring Provider: MADHU CAZARES 24 HR Interval Summary Constitutional: improved, no complaints, requiring O2 Detailed Summary Respiratory: no complaints Cardiovascular: no complaints Gastrointestinal: no complaints Genitourinary: no complaints Musculoskeletal: no complaints Neurologic: no complaints Exam/Review of Systems Vital Signs Vitals VS - Last 72 Hours, by Label Date Time Temp Pulse Resp B/P Pulse Ox O2 Delivery O2 Flow Rate FiO2 08/17/16 16:22 65 08/17/16 16:10 3.0 08/17/16 15:46 97.6 66 18 121/59 94 08/17/16 13:14 117/64 08/17/16 12:56 62 08/17/16 12:17 97.9 62 18 106/50 98 08/17/16 08:30 80 08/17/16 08:30 Nasal Cannula 2.0 08/17/16 07:32 97.8 66 18 119/57 100 08/17/16 05:14 3.0 08/17/16 04:47 76 08/17/16 04:25 62 98 30 08/17/16 04:16 98.3 63 20 122/56 98 08/17/16 02:12 68 98 30 08/17/16 00:09 98.2 65 20 108/54 100 08/17/16 00:09 62 08/16/16 23:49 3.0 08/16/16 23:48 64 97 30 08/16/16 20:35 98.0 70 20 115/56 100 08/16/16 20:10 60 08/16/16 19:25 Nasal Cannula 2.0 08/16/16 16:11 98.3 60 18 117/56 99 08/16/16 16:00 58 08/16/16 12:00 56 08/16/16 11:51 97.8 66 18 118/56 99 08/16/16 08:11 2.0 08/16/16 08:10 Nasal Cannula 2.0 08/16/16 08:02 96.9 65 16 150/65 100 08/16/16 08:00 66 08/16/16 05:05 65 98 30 08/16/16 04:41 57 08/16/16 04:00 98.3 58 19 104/63 98 08/16/16 03:56 62 99 30 08/16/16 01:22 69 99 30 08/16/16 00:57 60 08/16/16 00:15 65 98 30 08/16/16 00:10 98.2 58 20 132/63 100 08/15/16 22:02 62 98 30 08/15/16 20:33 60 08/15/16 20:06 98.2 59 18 118/55 95 08/15/16 19:30 Nasal Cannula 2.0 08/15/16 17:44 2.0 08/15/16 16:43 57 08/15/16 16:17 97.9 57 21 106/52 97 08/15/16 14:01 59 08/15/16 12:41 59 08/15/16 12:01 98.4 65 20 136/55 98 08/15/16 09:45 Nasal Cannula 2.0 08/15/16 08:13 62 08/15/16 07:51 98.8 67 21 122/57 100 08/15/16 04:45 67 98 30 08/15/16 04:18 97.8 67 18 146/67 98 08/15/16 04:00 66 08/15/16 03:00 66 97 30 08/15/16 01:20 63 98 30 08/15/16 00:17 98.0 71 18 160/68 96 08/15/16 00:07 69 08/14/16 23:40 65 98 30 08/14/16 21:25 65 98 30 08/14/16 21:06 97.4 67 18 121/56 98 08/14/16 21:00 2.0 08/14/16 20:27 63 08/14/16 19:15 Nasal Cannula 2.0 Vital Signs Date Time Temp Pulse Resp B/P Pulse Ox O2 Delivery O2 Flow Rate FiO2 08/17/16 16:22 65 08/17/16 16:10 3.0 08/17/16 15:46 97.6 18 121/59 94 08/17/16 08:30 Nasal Cannula 08/17/16 04:25 30 Intake and Output 08/16/16 08/16/16 08/17/16 15:00 23:00 07:00 Intake Total 1200 ml 900 ml Balance 1200 ml 900 ml Exam Constitutional: alert, obese, oriented Respiratory: clear to auscultation, normal air movement Cardiovascular: nl pulses, regular rate and rhythm, No edema, No murmurs/extra sounds, No rub Gastrointestinal: bowel sounds, nl liver, spleen, non-tender, soft, No mass, No rebound or guarding Musculoskeletal: nl extremities to inspection Extremities: normal pulses, No clubbing, No cyanosis, No edema Neurological: JUICE SCALEMAN II-XII intact, nl mental status, nl speech, nl strength Additional Comments Bedside Glucose - 72 Hours Test 08/14/16 20:10 08/15/16 08:07 08/15/16 12:23 08/15/16 17:22 Bedside Glucose 167mg/dL (70-220) 169mg/dL (70-220) 131mg/dL (70-220) 89mg/dL (70-220) Test 08/15/16 20:30 08/16/16 07:49 08/16/16 11:10 08/16/16 16:53 Bedside Glucose 144mg/dL (70-220) 163mg/dL (70-220) 151mg/dL (70-220) 72mg/dL (70-220) Test 08/16/16 20:34 08/17/16 07:54 08/17/16 11:58 08/17/16 17:00 Bedside Glucose 75mg/dL (70-220) 179mg/dL (70-220) 190mg/dL (70-220) 72mg/dL (70-220) Results Result Diagram: 08/17/16 0700 08/17/16 0700 Results 24 hrs Laboratory Tests Test 08/16/16 20:34 08/17/16 07:00 08/17/16 07:54 08/17/16 11:58 Bedside Glucose 75 179 190 White Blood Count 10.2 Red Blood Count 5.06 Hemoglobin 11.9 L Hematocrit 41.5 Mean Corpuscular Volume 82.0 Mean Corpuscular Hemoglobin 23.5 L Mean Corpuscular Hemoglobin Concent 28.7 L Red Cell Distribution Width 20.5 H Platelet Count 324 Mean Platelet Volume 9.0 Neutrophils % 78.3 H Lymphocytes % 12.0 L Monocytes % 5.9 Eosinophils % 2.9 Basophils % 0.4 Nucleated Red Blood Cells % 0.0 Neutrophils # 8.0 H Lymphocytes # 1.2 Monocytes # 0.6 Eosinophils # 0.3 Basophils # 0.0 Nucleated Red Blood Cells # 0.0 Sodium Level 138 Potassium Level 4.9 Chloride Level 96 L Carbon Dioxide Level 36 H Anion Gap 11 Blood Urea Nitrogen 46 H Creatinine 1.28 H Glucose Level 168 Calcium Level 9.3 Test 08/17/16 17:00 Bedside Glucose 72 Medications Medications Current Medications Ondansetron HCl (Zofran Inj) 4 mg Q6H PRN IV NAUSEA AND/OR VOMITING; Start at 20:30 Morphine Sulfate (morphine) 2 mg Q4H PRN IV PAIN LEVEL 7-10; Start 08/06/16 at 20:30 Enoxaparin Sodium (Lovenox) 30 mg DAILY SC Last administered on 08/17/16 08:35 ; Admin Dose 30 MG; Start 08/07/16 at 09:00 Miscellaneous Information 1 ea NOTE XX ; Start 08/06/16 at 20:30 Diagnostic Test (Pha) (Accu-Chek) 1 ea 02 XX Last administered on 08/11/16 01: 49; Admin Dose 1 EA; Start 08/07/16 at 02:00 Miscellaneous Information 1 ea NOTE XX ; Start 08/06/16 at 20:30 Glucose (Glutose) 15 gm Q15M PRN PO DECREASED GLUCOSE; Start 08/06/16 at 20:30 Glucose (Glutose) 22.5 gm Q15M PRN PO DECREASED GLUCOSE; Start 08/06/16 at 20: 30 Dextrose (D50w Syringe) 25 ml Q15M PRN IV DECREASED GLUCOSE; Start 08/06/16 at 20:30 Dextrose (D50w Syringe) 50 ml Q15M PRN IV DECREASED GLUCOSE; Start 08/06/16 at 20:30 Glucagon (Glucagen) 1 mg Q15M PRN IM DECREASED GLUCOSE; Start 08/06/16 at 20:30 Glucose (Glutose) 15 gm Q15M PRN BUCCAL DECREASED GLUCOSE; Start 08/06/16 at 20 :30 Aripiprazole (Abilify) 10 mg DAILY PO Last administered on 08/17/16 08:27; Admin Dose 10 MG; Start 08/08/16 at 09:00 Atorvastatin Calcium (Lipitor) 40 mg HS PO Last administered on 08/16/16 20:32 ; Admin Dose 40 MG; Start 08/07/16 at 21:00 Brimonidine Tartrate (Alphagan P 0.15%) 1 drop BID BOTH EYES Last administered on 08/17/16 08:29; Admin Dose 1 DROP; Start 08/07/16 at 21:00 Sertraline HCl (Zoloft) 50 mg DAILY PO Last administered on 08/17/16 08:27; Admin Dose 50 MG; Start 08/08/16 at 09:00 Pantoprazole Sodium (Protonix) 20 mg BID@06,18 PO Last administered on 17:00; Admin Dose 20 MG; Start 08/07/16 at 18:00 Empaglifozin (Jardiance) 25 mg DAILY@08 PO Last administered on 08/17/16 08:27 ; Admin Dose 25 MG; Start 08/08/16 at 08:00 Linagliptin (Tradjenta) 5 mg DAILY@08 PO Last administered on 08/17/16 08:27; Admin Dose 5 MG; Start 08/08/16 at 08:00 Nitroglycerin (Nitroglycerin (Sl Tab) 0.4 Mg) 1 tab Q5M PRN SL ANGINA; Start at 20:00 Insulin Glargine (Lantus) 45 unit DAILY@08 SC Last administered on 08/17/16 08 :35; Admin Dose 45 UNIT; Start 08/09/16 at 08:00 Losartan Potassium (Cozaar) 100 mg DAILY PO Last administered on 08/17/16 08: 28; Admin Dose 100 MG; Start 08/12/16 at 13:30 Metoprolol Succinate (Toprol Xl) 50 mg BID PO Last administered on 08/17/16 08 :27; Admin Dose 50 MG; Start 08/13/16 at 21:00 Amlodipine Besylate (Norvasc) 2.5 mg DAILY PO Last administered on 08/16/16 08 :13; Admin Dose 2.5 MG; Start 08/14/16 at 09:00; Status Future Hold Hydralazine HCl (Apresoline) 50 mg TID PO Last administered on 08/17/16 13:14 ; Admin Dose 50 MG; Start 08/13/16 at 13:00 Furosemide (Lasix) 20 mg DAILY@06 PO Last administered on 08/17/16 05:18; Admin Dose 20 MG; Start 08/15/16 at 06:00 Insulin Human NPH (Humulin N) 30 unit DAILY@20 SC Last administered on 20:36; Admin Dose 30 UNIT; Start 08/16/16 at 20:00 TONY KELLY MD August 17, 2016 18:16
--- NOTE | 2016-08-17 19:56 | CONS ---
Date/Time of Note Date/Time of Note DATE: 08/17/16 TIME: 19:54 Assessment/Plan Assessment/Plan Chief Complaint/Hosp Course IMPRESSION: 1. Shortness of breath-improved 2. Elevated BNP, assess for congestive heart failure. 3. Chest pain, assess for acute coronary syndrome.-negative trop x 3/No ischemia by lexiscan 4. Abnormal electrocardiogram. Assess for acute coronary syndrome. 5. Hypertensive urgency, emergency. Currently improved on oral antihypertensives. 6. Diabetes mellitus, uncontrolled blood sugars. 7. Anemia. 8. Leukocytosis. 9. Psych disorder. 10. CHF-diastolic acute on chronic-improved volume status by exam/cxr 11.Possible DAVID-on nightime CPAP/BIPAP 12. Renal failure Recc: -Tele -serial ecg's -Continue Toprol -continue imdur/hydralazine/losartan with well controlled BP -continue lasix diuresis PO daily and follow volume status closely -continue plavix -Continue nighttime CPAP and BIPAP/CPAP set up at home Problems: Consultation Date/Type/Reason Admit Date/Time August 06, 2016 at 19:45 Initial Consult Date 08/08/16 Type of Consultation: Cardiology Reason for Consultation chest pain/sob Referring Provider: MADHU CAZARES Exam/Review of Systems Vital Signs Vitals Vital Signs Date Time Temp Pulse Resp B/P Pulse Ox O2 Delivery O2 Flow Rate FiO2 08/17/16 16:22 65 08/17/16 16:10 3.0 08/17/16 15:46 97.6 18 121/59 94 08/17/16 08:30 Nasal Cannula 08/17/16 04:25 30 Intake and Output 08/16/16 08/16/16 08/17/16 15:00 23:00 07:00 Intake Total 1200 ml 900 ml Balance 1200 ml 900 ml Exam Review of Systems: CONSTITUTIONAL: No fevers, chills. PULMONARY: No sob CARDIOVASCULAR: No chest pain/palpitations GASTROINTESTINAL: No nausea/vomiting. GENITOURINARY: No hematuria/dysuria. MUSCULOSKELETAL: No myagias/arthalgias. PSYCHIATRIC: The patient denies depression. NEUROLOGIC: No weakness Constitutional: alert Psych: no complaints Head: normocephalic ENMT: mucosa pink and moist Neck: jvd (8 cm water), supple Respiratory: diminished breath sounds (at bases/B) Cardiovascular: regular rate and rhythm Gastrointestinal: non-tender, soft Musculoskeletal: muscle tone (normal) Extremities: edema (none) Neurological: other (No focal deficits) Results Result Diagram: 08/17/16 0700 08/17/16 0700 Results 24 hrs Laboratory Tests Test 08/16/16 20:34 08/17/16 07:00 08/17/16 07:54 08/17/16 11:58 Bedside Glucose 75 179 190 White Blood Count 10.2 Red Blood Count 5.06 Hemoglobin 11.9 L Hematocrit 41.5 Mean Corpuscular Volume 82.0 Mean Corpuscular Hemoglobin 23.5 L Mean Corpuscular Hemoglobin Concent 28.7 L Red Cell Distribution Width 20.5 H Platelet Count 324 Mean Platelet Volume 9.0 Neutrophils % 78.3 H Lymphocytes % 12.0 L Monocytes % 5.9 Eosinophils % 2.9 Basophils % 0.4 Nucleated Red Blood Cells % 0.0 Neutrophils # 8.0 H Lymphocytes # 1.2 Monocytes # 0.6 Eosinophils # 0.3 Basophils # 0.0 Nucleated Red Blood Cells # 0.0 Sodium Level 138 Potassium Level 4.9 Chloride Level 96 L Carbon Dioxide Level 36 H Anion Gap 11 Blood Urea Nitrogen 46 H Creatinine 1.28 H Glucose Level 168 Calcium Level 9.3 Test 08/17/16 17:00 Bedside Glucose 72 Medications Medications Current Medications Ondansetron HCl (Zofran Inj) 4 mg Q6H PRN IV NAUSEA AND/OR VOMITING; Start at 20:30 Morphine Sulfate (morphine) 2 mg Q4H PRN IV PAIN LEVEL 7-10; Start 08/06/16 at 20:30 Enoxaparin Sodium (Lovenox) 30 mg DAILY SC Last administered on 08/17/16 08:35 ; Admin Dose 30 MG; Start 08/07/16 at 09:00 Miscellaneous Information 1 ea NOTE XX ; Start 08/06/16 at 20:30 Diagnostic Test (Pha) (Accu-Chek) 1 ea 02 XX Last administered on 08/11/16 01: 49; Admin Dose 1 EA; Start 08/07/16 at 02:00 Miscellaneous Information 1 ea NOTE XX ; Start 08/06/16 at 20:30 Glucose (Glutose) 15 gm Q15M PRN PO DECREASED GLUCOSE; Start 08/06/16 at 20:30 Glucose (Glutose) 22.5 gm Q15M PRN PO DECREASED GLUCOSE; Start 08/06/16 at 20: 30 Dextrose (D50w Syringe) 25 ml Q15M PRN IV DECREASED GLUCOSE; Start 08/06/16 at 20:30 Dextrose (D50w Syringe) 50 ml Q15M PRN IV DECREASED GLUCOSE; Start 08/06/16 at 20:30 Glucagon (Glucagen) 1 mg Q15M PRN IM DECREASED GLUCOSE; Start 08/06/16 at 20:30 Glucose (Glutose) 15 gm Q15M PRN BUCCAL DECREASED GLUCOSE; Start 08/06/16 at 20 :30 Aripiprazole (Abilify) 10 mg DAILY PO Last administered on 08/17/16 08:27; Admin Dose 10 MG; Start 08/08/16 at 09:00 Atorvastatin Calcium (Lipitor) 40 mg HS PO Last administered on 08/16/16 20:32 ; Admin Dose 40 MG; Start 08/07/16 at 21:00 Brimonidine Tartrate (Alphagan P 0.15%) 1 drop BID BOTH EYES Last administered on 08/17/16 08:29; Admin Dose 1 DROP; Start 08/07/16 at 21:00 Sertraline HCl (Zoloft) 50 mg DAILY PO Last administered on 08/17/16 08:27; Admin Dose 50 MG; Start 08/08/16 at 09:00 Pantoprazole Sodium (Protonix) 20 mg BID@06,18 PO Last administered on 17:00; Admin Dose 20 MG; Start 08/07/16 at 18:00 Empaglifozin (Jardiance) 25 mg DAILY@08 PO Last administered on 08/17/16 08:27 ; Admin Dose 25 MG; Start 08/08/16 at 08:00 Linagliptin (Tradjenta) 5 mg DAILY@08 PO Last administered on 08/17/16 08:27; Admin Dose 5 MG; Start 08/08/16 at 08:00 Nitroglycerin (Nitroglycerin (Sl Tab) 0.4 Mg) 1 tab Q5M PRN SL ANGINA; Start at 20:00 Insulin Glargine (Lantus) 45 unit DAILY@08 SC Last administered on 08/17/16 08 :35; Admin Dose 45 UNIT; Start 08/09/16 at 08:00 Losartan Potassium (Cozaar) 100 mg DAILY PO Last administered on 08/17/16 08: 28; Admin Dose 100 MG; Start 08/12/16 at 13:30 Metoprolol Succinate (Toprol Xl) 50 mg BID PO Last administered on 08/17/16 08 :27; Admin Dose 50 MG; Start 08/13/16 at 21:00 Amlodipine Besylate (Norvasc) 2.5 mg DAILY PO Last administered on 08/16/16 08 :13; Admin Dose 2.5 MG; Start 08/14/16 at 09:00; Status Future Hold Hydralazine HCl (Apresoline) 50 mg TID PO Last administered on 08/17/16 13:14 ; Admin Dose 50 MG; Start 08/13/16 at 13:00 Furosemide (Lasix) 20 mg DAILY@06 PO Last administered on 08/17/16 05:18; Admin Dose 20 MG; Start 08/15/16 at 06:00 Insulin Human NPH (Humulin N) 30 unit DAILY@20 SC Last administered on 20:36; Admin Dose 30 UNIT; Start 08/16/16 at 20:00 TERRIE DUNN August 17, 2016 19:56
[2016-08-17] MEDS: ATORVASTATIN 40 MG TAB PO SCH (21:25)
[2016-08-17] MEDS: morphine 2 MG INJ IV PRN (21:35)
[2016-08-17] MEDS: NPH, HUMAN INSULIN ISOPHANE 3ML VIAL SC SCH (23:30)
[2016-08-18] VITALS (15 sets, daily range): BP systolic 104–131; BP diastolic 53–72; PULSE 60–75; RESP 15–21
[2016-08-18] MEDS: morphine 2 MG INJ IV PRN (01:30)
[2016-08-18] MEDS: ACCUCHECK AT 2AM (Patients on SS coverage) XX SCH (01:31)
[2016-08-18] MEDS: PANTOPRAZOLE SODIUM 20 MG TABEC PO SCH ×2 (06:11→17:24)
[2016-08-18] MEDS: FUROSEMIDE 20 MG TAB PO SCH (06:12)
[2016-08-18] MEDS: INSULIN ASPART [NOVOLOG] 3 ML PEN SC SCH ×7 (08:00→20:27)
[2016-08-18] MEDS: EMPAGLIFLOZIN 10 MG TABLET PO SCH (08:13)
[2016-08-18] MEDS: LINAGLIPTIN 5 MG TABLET PO SCH (08:14)
[2016-08-18] MEDS: [UNRECOGNIZED DRUG - OTHER] SC SCH ×3 (08:21→17:27)
[2016-08-18 08:22] LABS: ADD SCAN DIFF NO
[2016-08-18 08:32] LABS: BASOPHILS % 0.4 % (0.0-2.0); EOSINOPHILS # 0.3 10^3/ul (0.0-0.5); EOSINOPHILS % 2.7 % (0.0-7.0); HEMATOCRIT 39.7 % (37.0-47.0); HEMOGLOBIN 11.8 g/dl (12.0-16.0); LYMPHOCYTES # 1.4 10^3/ul (0.8-2.9); LYMPHOCYTES % 14.5 % (15.0-51.0); MEAN CORPUSCULAR HGB CONC 29.7 g/dl (32.0-37.0); MEAN CORPUSCULAR VOLUME 80.7 fl (82.0-101.0); MEAN PLATELET VOLUME 9.1 fl (7.4-10.4); MONOCYTE # 0.6 10^3/ul (0.3-0.9); MONOCYTES % 6.9 % (0.0-11.0); NEUTROPHILS % 75.2 % (39.0-77.0); PLATELET COUNT 335 10^3/UL (140-415); RED BLOOD COUNT 4.92 10^6/ul (4.20-5.40); WHITE BLOOD COUNT 9.3 10^3/ul (4.8-10.8)
[2016-08-18] MEDS: INSULIN GLARGINE [LANtus] 3 ML PEN SC SCH (08:37)
[2016-08-18 08:43] LABS: POTASSIUM 4.4 mmol/L (3.5-5.1)
[2016-08-18 08:46] LABS: CALCIUM 9.3 mg/dl (8.4-10.2); CREATININE 1.16 mg/dl (0.44-1.00)
--- NOTE | 2016-08-18 09:01 | CONS ---
Date/Time of Note Date/Time of Note DATE: 08/18/16 TIME: 08:59 Assessment/Plan Assessment/Plan Additional Assessment/Plan Assessment recommendations; 1. Patient admitted for mild CHF exacerbation due to diastolic dysfunction with significant clinical improvement. 2. Mild hypercapnia, likely from obesity/hypoventilation syndrome. Likely underlying sleep apnea as well. 3. Hypertension or diabetes. 4. Currently no evidence of any hypoxemia. Patient can be discharged home. BiPAP has been arranged for home use. Patient also has had a negative nuclear cardiac SPECT test. Consultation Date/Type/Reason Admit Date/Time August 06, 2016 at 19:45 Initial Consult Date 08/08/16 Type of Consultation: Pulmonary Referring Provider: MADHU CAZARES 24 HR Interval Summary Free Text/Dictation Patient's condition is stable. She is anxious to go home. Denies any shortness of breath, chest pain, patient has been ambulatory. General exam; elderly lady, awake alert currently in no distress. Exam/Review of Systems Vital Signs Vitals Vital Signs Date Time Temp Pulse Resp B/P Pulse Ox O2 Delivery O2 Flow Rate FiO2 08/18/16 08:33 60 08/18/16 08:26 3.0 08/18/16 07:42 97.9 18 129/55 99 08/18/16 05:30 30 08/18/16 00:00 Nasal Cannula Intake and Output 08/17/16 08/17/16 08/18/16 15:00 23:00 07:00 Intake Total 1040 ml Balance 1040 ml Exam HEENT examination; supple neck, JVD difficult to see because of short neck patient is edentulous. No neck masses. No thyromegaly. Chest examination; clear to auscultation. S1-S2 audible, no murmurs. Regular rhythm. Abdomen exam is; soft, protuberant. Nontender. No organomegaly. Bowel sounds audible. Extremity examination; no peripheral edema. Pulses 1+ bilaterally. [employer] examination; no focal deficit. Results Result Diagram: 08/18/16 0735 08/18/16 0735 Results 24 hrs Laboratory Tests Test 08/17/16 11:58 08/17/16 17:00 08/17/16 21:12 08/17/16 23:25 Bedside Glucose 190 72 66 L 123 Test 08/18/16 01:22 08/18/16 07:35 08/18/16 08:16 Bedside Glucose 125 105 White Blood Count 9.3 Red Blood Count 4.92 Hemoglobin 11.8 L Hematocrit 39.7 Mean Corpuscular Volume 80.7 L Mean Corpuscular Hemoglobin 24.0 L Mean Corpuscular Hemoglobin Concent 29.7 L Red Cell Distribution Width 20.0 H Platelet Count 335 Mean Platelet Volume 9.1 Neutrophils % 75.2 Lymphocytes % 14.5 L Monocytes % 6.9 Eosinophils % 2.7 Basophils % 0.4 Nucleated Red Blood Cells % 0.0 Neutrophils # 7.0 Lymphocytes # 1.4 Monocytes # 0.6 Eosinophils # 0.3 Basophils # 0.0 Nucleated Red Blood Cells # 0.0 Sodium Level 141 Potassium Level 4.4 Chloride Level 95 L Carbon Dioxide Level 36 H Anion Gap 14 Blood Urea Nitrogen 42 H Creatinine 1.16 H Glucose Level 96 # Calcium Level 9.3 Medications Medications Current Medications Ondansetron HCl (Zofran Inj) 4 mg Q6H PRN IV NAUSEA AND/OR VOMITING; Start at 20:30 Morphine Sulfate (morphine) 2 mg Q4H PRN IV PAIN LEVEL 7-10 Last administered on 08/18/16 01:30; Admin Dose 2 MG; Start 08/06/16 at 20:30 Enoxaparin Sodium (Lovenox) 30 mg DAILY SC Last administered on 08/17/16 08:35 ; Admin Dose 30 MG; Start 08/07/16 at 09:00 Miscellaneous Information 1 ea NOTE XX ; Start 08/06/16 at 20:30 Diagnostic Test (Pha) (Accu-Chek) 1 ea 02 XX Last administered on 08/18/16 01: 31; Admin Dose 1 EA; Start 08/07/16 at 02:00 Miscellaneous Information 1 ea NOTE XX ; Start 08/06/16 at 20:30 Glucose (Glutose) 15 gm Q15M PRN PO DECREASED GLUCOSE; Start 08/06/16 at 20:30 Glucose (Glutose) 22.5 gm Q15M PRN PO DECREASED GLUCOSE; Start 08/06/16 at 20: 30 Dextrose (D50w Syringe) 25 ml Q15M PRN IV DECREASED GLUCOSE; Start 08/06/16 at 20:30 Dextrose (D50w Syringe) 50 ml Q15M PRN IV DECREASED GLUCOSE; Start 08/06/16 at 20:30 Glucagon (Glucagen) 1 mg Q15M PRN IM DECREASED GLUCOSE; Start 08/06/16 at 20:30 Glucose (Glutose) 15 gm Q15M PRN BUCCAL DECREASED GLUCOSE; Start 08/06/16 at 20 :30 Aripiprazole (Abilify) 10 mg DAILY PO Last administered on 08/17/16 08:27; Admin Dose 10 MG; Start 08/08/16 at 09:00 Atorvastatin Calcium (Lipitor) 40 mg HS PO Last administered on 08/17/16 21:25 ; Admin Dose 40 MG; Start 08/07/16 at 21:00 Brimonidine Tartrate (Alphagan P 0.15%) 1 drop BID BOTH EYES Last administered on 08/17/16 21:25; Admin Dose 1 DROP; Start 08/07/16 at 21:00 Sertraline HCl (Zoloft) 50 mg DAILY PO Last administered on 08/17/16 08:27; Admin Dose 50 MG; Start 08/08/16 at 09:00 Pantoprazole Sodium (Protonix) 20 mg BID@06,18 PO Last administered on 06:11; Admin Dose 20 MG; Start 08/07/16 at 18:00 Empaglifozin (Jardiance) 25 mg DAILY@08 PO Last administered on 08/18/16 08:13 ; Admin Dose 25 MG; Start 08/08/16 at 08:00 Linagliptin (Tradjenta) 5 mg DAILY@08 PO Last administered on 08/18/16 08:14; Admin Dose 5 MG; Start 08/08/16 at 08:00 Nitroglycerin (Nitroglycerin (Sl Tab) 0.4 Mg) 1 tab Q5M PRN SL ANGINA; Start at 20:00 Insulin Glargine (Lantus) 45 unit DAILY@08 SC Last administered on 08/18/16 08 :37; Admin Dose 45 UNIT; Start 08/09/16 at 08:00 Losartan Potassium (Cozaar) 100 mg DAILY PO Last administered on 08/17/16 08: 28; Admin Dose 100 MG; Start 08/12/16 at 13:30 Metoprolol Succinate (Toprol Xl) 50 mg BID PO Last administered on 08/17/16 21 :25; Admin Dose 50 MG; Start 08/13/16 at 21:00 Amlodipine Besylate (Norvasc) 2.5 mg DAILY PO Last administered on 08/16/16 08 :13; Admin Dose 2.5 MG; Start 08/14/16 at 09:00; Status Future Hold Hydralazine HCl (Apresoline) 50 mg TID PO Last administered on 08/17/16 21:25 ; Admin Dose 50 MG; Start 08/13/16 at 13:00 Furosemide (Lasix) 20 mg DAILY@06 PO Last administered on 08/18/16 06:12; Admin Dose 20 MG; Start 08/15/16 at 06:00 Insulin Human NPH (Humulin N) 30 unit DAILY@20 SC Last administered on 23:30; Admin Dose 30 UNIT; Start 08/16/16 at 20:00 MIGUEL RIVERA August 18, 2016 09:01
[2016-08-18] MEDS: SERTRALINE 50 MG TAB PO SCH (09:34)
[2016-08-18] MEDS: ARIPIPRAZOLE 10 MG TAB PO SCH (09:34)
[2016-08-18] MEDS: LOSARTAN 50 MG TAB PO SCH (09:34)
[2016-08-18] MEDS: BRIMONIDINE 0.15% 5 ML OPH BOTH EYES SCH ×2 (09:34→21:29)
[2016-08-18] MEDS: METOPROLOL (XL) 50 MG TAB PO SCH ×2 (09:35→20:33)
[2016-08-18] MEDS: ENOXAPARIN 30 MG/0.3 ML SYG SC SCH (09:36)
--- NOTE | 2016-08-18 16:05 | CONS ---
Date/Time of Note Date/Time of Note DATE: 08/18/16 TIME: 16:03 Assessment/Plan Assessment/Plan Chief Complaint/Hosp Course IMPRESSION: 1. Shortness of breath-improved 2. Elevated BNP, assess for congestive heart failure. 3. Chest pain, assess for acute coronary syndrome.-negative trop x 3/No ischemia by lexiscan 4. Abnormal electrocardiogram. Assess for acute coronary syndrome. 5. Hypertensive urgency, emergency. Currently improved on oral antihypertensives. 6. Diabetes mellitus, uncontrolled blood sugars. 7. Anemia. 8. Leukocytosis. 9. Psych disorder. 10. CHF-diastolic acute on chronic-improved volume status by exam/cxr 11.Possible DAVID-on nightime CPAP/BIPAP 12. Renal failure Recc: -Tele -serial ecg's -Continue Toprol -continue imdur/hydralazine/losartan with well controlled BP -continue lasix diuresis PO daily and follow volume status closely -continue plavix -BIPAP/CPAP now delivered to home -OK for d/c planning with outpatient f/u Problems: Consultation Date/Type/Reason Admit Date/Time August 06, 2016 at 19:45 Initial Consult Date 08/08/16 Type of Consultation: Cardiology Reason for Consultation CHF/chest pain Referring Provider: MADHU CAZARES Exam/Review of Systems Vital Signs Vitals Vital Signs Date Time Temp Pulse Resp B/P Pulse Ox O2 Delivery O2 Flow Rate FiO2 08/18/16 12:16 64 08/18/16 11:50 97.6 18 104/53 98 08/18/16 08:30 Nasal Cannula 2.0 08/18/16 05:30 30 Intake and Output 08/17/16 08/17/16 08/18/16 15:00 23:00 07:00 Intake Total 1040 ml Balance 1040 ml Exam Review of Systems: CONSTITUTIONAL: No fevers, chills. PULMONARY: No sob CARDIOVASCULAR: No chest pain/palpitations GASTROINTESTINAL: No nausea/vomiting. GENITOURINARY: No hematuria/dysuria. MUSCULOSKELETAL: No myagias/arthalgias. PSYCHIATRIC: The patient denies depression. NEUROLOGIC: No weakness Constitutional: alert Psych: no complaints Head: normocephalic ENMT: mucosa pink and moist Neck: jvd (8 cm water), supple Respiratory: clear to auscultation Cardiovascular: regular rate and rhythm Gastrointestinal: non-tender, soft Musculoskeletal: muscle tone (normal) Extremities: edema (none) Neurological: other (No focal deficits) Results Result Diagram: 08/18/16 0735 08/18/16 0735 Results 24 hrs Laboratory Tests Test 08/17/16 17:00 08/17/16 21:12 08/17/16 23:25 08/18/16 01:22 Bedside Glucose 72 66 L 123 125 Test 08/18/16 07:35 08/18/16 08:16 08/18/16 11:45 08/18/16 13:16 White Blood Count 9.3 Red Blood Count 4.92 Hemoglobin 11.8 L Hematocrit 39.7 Mean Corpuscular Volume 80.7 L Mean Corpuscular Hemoglobin 24.0 L Mean Corpuscular Hemoglobin Concent 29.7 L Red Cell Distribution Width 20.0 H Platelet Count 335 Mean Platelet Volume 9.1 Neutrophils % 75.2 Lymphocytes % 14.5 L Monocytes % 6.9 Eosinophils % 2.7 Basophils % 0.4 Nucleated Red Blood Cells % 0.0 Neutrophils # 7.0 Lymphocytes # 1.4 Monocytes # 0.6 Eosinophils # 0.3 Basophils # 0.0 Nucleated Red Blood Cells # 0.0 Sodium Level 141 Potassium Level 4.4 Chloride Level 95 L Carbon Dioxide Level 36 H Anion Gap 14 Blood Urea Nitrogen 42 H Creatinine 1.16 H Glucose Level 96 # Calcium Level 9.3 Bedside Glucose 105 112 81 Medications Medications Current Medications Ondansetron HCl (Zofran Inj) 4 mg Q6H PRN IV NAUSEA AND/OR VOMITING; Start at 20:30 Morphine Sulfate (morphine) 2 mg Q4H PRN IV PAIN LEVEL 7-10 Last administered on 08/18/16 01:30; Admin Dose 2 MG; Start 08/06/16 at 20:30 Enoxaparin Sodium (Lovenox) 30 mg DAILY SC Last administered on 08/18/16 09:36 ; Admin Dose 30 MG; Start 08/07/16 at 09:00 Miscellaneous Information 1 ea NOTE XX ; Start 08/06/16 at 20:30 Diagnostic Test (Pha) (Accu-Chek) 1 ea 02 XX Last administered on 08/18/16 01: 31; Admin Dose 1 EA; Start 08/07/16 at 02:00 Miscellaneous Information 1 ea NOTE XX ; Start 08/06/16 at 20:30 Glucose (Glutose) 15 gm Q15M PRN PO DECREASED GLUCOSE; Start 08/06/16 at 20:30 Glucose (Glutose) 22.5 gm Q15M PRN PO DECREASED GLUCOSE; Start 08/06/16 at 20: 30 Dextrose (D50w Syringe) 25 ml Q15M PRN IV DECREASED GLUCOSE; Start 08/06/16 at 20:30 Dextrose (D50w Syringe) 50 ml Q15M PRN IV DECREASED GLUCOSE; Start 08/06/16 at 20:30 Glucagon (Glucagen) 1 mg Q15M PRN IM DECREASED GLUCOSE; Start 08/06/16 at 20:30 Glucose (Glutose) 15 gm Q15M PRN BUCCAL DECREASED GLUCOSE; Start 08/06/16 at 20 :30 Aripiprazole (Abilify) 10 mg DAILY PO Last administered on 08/18/16 09:34; Admin Dose 10 MG; Start 08/08/16 at 09:00 Atorvastatin Calcium (Lipitor) 40 mg HS PO Last administered on 08/17/16 21:25 ; Admin Dose 40 MG; Start 08/07/16 at 21:00 Brimonidine Tartrate (Alphagan P 0.15%) 1 drop BID BOTH EYES Last administered on 08/18/16 09:34; Admin Dose 1 DROP; Start 08/07/16 at 21:00 Sertraline HCl (Zoloft) 50 mg DAILY PO Last administered on 08/18/16 09:34; Admin Dose 50 MG; Start 08/08/16 at 09:00 Pantoprazole Sodium (Protonix) 20 mg BID@06,18 PO Last administered on 06:11; Admin Dose 20 MG; Start 08/07/16 at 18:00 Empaglifozin (Jardiance) 25 mg DAILY@08 PO Last administered on 08/18/16 08:13 ; Admin Dose 25 MG; Start 08/08/16 at 08:00 Linagliptin (Tradjenta) 5 mg DAILY@08 PO Last administered on 08/18/16 08:14; Admin Dose 5 MG; Start 08/08/16 at 08:00 Nitroglycerin (Nitroglycerin (Sl Tab) 0.4 Mg) 1 tab Q5M PRN SL ANGINA; Start at 20:00 Insulin Glargine (Lantus) 45 unit DAILY@08 SC Last administered on 08/18/16 08 :37; Admin Dose 45 UNIT; Start 08/09/16 at 08:00 Losartan Potassium (Cozaar) 100 mg DAILY PO Last administered on 08/18/16 09: 34; Admin Dose 100 MG; Start 08/12/16 at 13:30 Metoprolol Succinate (Toprol Xl) 50 mg BID PO Last administered on 08/18/16 09 :35; Admin Dose 50 MG; Start 08/13/16 at 21:00 Amlodipine Besylate (Norvasc) 2.5 mg DAILY PO Last administered on 08/16/16 08 :13; Admin Dose 2.5 MG; Start 08/14/16 at 09:00; Status Future Hold Hydralazine HCl (Apresoline) 50 mg TID PO Last administered on 08/18/16 13:41 ; Admin Dose 50 MG; Start 08/13/16 at 13:00 Furosemide (Lasix) 20 mg DAILY@06 PO Last administered on 08/18/16 06:12; Admin Dose 20 MG; Start 08/15/16 at 06:00 Insulin Human NPH (Humulin N) 30 unit DAILY@20 SC Last administered on 23:30; Admin Dose 30 UNIT; Start 08/16/16 at 20:00 TERRIE DUNN August 18, 2016 16:05
--- NOTE | 2016-08-18 16:57 | PN ---
Date/Time of Note Date/Time of Note DATE: 08/18/16 TIME: 16:56 Assessment/Plan VTE Prophylaxis VTE Prophylaxis Intervention: SCD's Lines/Catheters IV Catheter Type [facility]from [facility] Urinary Cath still in place: No Assessment/Plan Chief Complaint/Hosp Course Patient has denies any shortness of breath denies chest pain, awaits for arrangement of BiPAP at home prior to DC ASSESSMENT AND PLAN: - Diastolic acute on chronic congestive heart failure exacerbation. Continue Lasix. Dr. Cota is following patient. Cardiology consultation. Continue to monitor electrolytes. - Possible sleep apnea, continue BiPAP. is following in pulmonology consultation - Hypertension. Continue Toprol and Norvasc. - Acute coronary syndrome ruled out, troponin negative 3, stress test with no ischemia - Diabetes mellitus type 2. Dr. Lyon is following in endocrinology consultation. - Acute on chronic kidney disease. Continue to monitor BUN and creatinine. - Hyperlipidemia. Continue statin. - Morbid obesity with BMI 50. Weight loss advised. Continue Lovenox for deep venous thrombosis prophylaxis and Pepcid for peptic ulcer disease prophylaxis. Further recommendations based on clinical course. Plan of care discussed with Dr. Garza. Problems: Exam/Review of Systems Vital Signs Vitals Vital Signs Date Time Temp Pulse Resp B/P Pulse Ox O2 Delivery O2 Flow Rate FiO2 08/18/16 16:27 60 08/18/16 16:11 97.7 18 125/63 96 08/18/16 08:30 Nasal Cannula 2.0 08/18/16 05:30 30 Intake and Output 08/17/16 08/17/16 08/18/16 15:00 23:00 07:00 Intake Total 1040 ml Balance 1040 ml Exam Constitutional: alert, oriented Psych: no complaints Head: normocephalic Eyes: nl conjunctiva ENMT: nl external ears & nose Neck: non-tender, supple Respiratory: clear to auscultation, normal air movement Cardiovascular: nl pulses, regular rate and rhythm Gastrointestinal: soft Extremities: normal pulses 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4 Nucleated Red Blood Cells % 0.0 Neutrophils # 7.0 Lymphocytes # 1.4 Monocytes # 0.6 Eosinophils # 0.3 Basophils # 0.0 Nucleated Red Blood Cells # 0.0 Sodium Level 141 Potassium Level 4.4 Chloride Level 95 L Carbon Dioxide Level 36 H Anion Gap 14 Blood Urea Nitrogen 42 H Creatinine 1.16 H Glucose Level 96 # Calcium Level 9.3 Bedside Glucose 105 112 81 Medications Medications Current Medications Ondansetron HCl (Zofran Inj) 4 mg Q6H PRN IV NAUSEA AND/OR VOMITING; Start at 20:30 Morphine Sulfate (morphine) 2 mg Q4H PRN IV PAIN LEVEL 7-10 Last administered on 08/18/16 01:30; Admin Dose 2 MG; Start 08/06/16 at 20:30 Enoxaparin Sodium (Lovenox) 30 mg DAILY SC Last administered on 08/18/16 09:36 ; Admin Dose 30 MG; Start 08/07/16 at 09:00 Miscellaneous Information 1 ea NOTE XX ; Start 08/06/16 at 20:30 Diagnostic Test (Pha) (Accu-Chek) 1 ea 02 XX Last administered on 08/18/16 01: 31; Admin Dose 1 EA; Start 08/07/16 at 02:00 Miscellaneous Information 1 ea NOTE XX ; Start 08/06/16 at 20:30 Glucose (Glutose) 15 gm Q15M PRN PO DECREASED GLUCOSE; Start 08/06/16 at 20:30 Glucose (Glutose) 22.5 gm Q15M PRN PO DECREASED GLUCOSE; Start 08/06/16 at 20: 30 Dextrose (D50w Syringe) 25 ml Q15M PRN IV DECREASED GLUCOSE; Start 08/06/16 at 20:30 Dextrose (D50w Syringe) 50 ml Q15M PRN IV DECREASED GLUCOSE; Start 08/06/16 at 20:30 Glucagon (Glucagen) 1 mg Q15M PRN IM DECREASED GLUCOSE; Start 08/06/16 at 20:30 Glucose (Glutose) 15 gm Q15M PRN BUCCAL DECREASED GLUCOSE; Start 08/06/16 at 20 :30 Aripiprazole (Abilify) 10 mg DAILY PO Last administered on 08/18/16 09:34; Admin Dose 10 MG; Start 08/08/16 at 09:00 Atorvastatin Calcium (Lipitor) 40 mg HS PO Last administered on 08/17/16 21:25 ; Admin Dose 40 MG; Start 08/07/16 at 21:00 Brimonidine Tartrate (Alphagan P 0.15%) 1 drop BID BOTH EYES Last administered on 08/18/16 09:34; Admin Dose 1 DROP; Start 08/07/16 at 21:00 Sertraline HCl (Zoloft) 50 mg DAILY PO Last administered on 08/18/16 09:34; Admin Dose 50 MG; Start 08/08/16 at 09:00 Pantoprazole Sodium (Protonix) 20 mg BID@06,18 PO Last administered on 06:11; Admin Dose 20 MG; Start 08/07/16 at 18:00 Empaglifozin (Jardiance) 25 mg DAILY@08 PO Last administered on 08/18/16 08:13 ; Admin Dose 25 MG; Start 08/08/16 at 08:00 Linagliptin (Tradjenta) 5 mg DAILY@08 PO Last administered on 08/18/16 08:14; Admin Dose 5 MG; Start 08/08/16 at 08:00 Nitroglycerin (Nitroglycerin (Sl Tab) 0.4 Mg) 1 tab Q5M PRN SL ANGINA; Start at 20:00 Insulin Glargine (Lantus) 45 unit DAILY@08 SC Last administered on 08/18/16 08 :37; Admin Dose 45 UNIT; Start 08/09/16 at 08:00 Losartan Potassium (Cozaar) 100 mg DAILY PO Last administered on 08/18/16 09: 34; Admin Dose 100 MG; Start 08/12/16 at 13:30 Metoprolol Succinate (Toprol Xl) 50 mg BID PO Last administered on 08/18/16 09 :35; Admin Dose 50 MG; Start 08/13/16 at 21:00 Amlodipine Besylate (Norvasc) 2.5 mg DAILY PO Last administered on 08/16/16 08 :13; Admin Dose 2.5 MG; Start 08/14/16 at 09:00; Status Future Hold Hydralazine HCl (Apresoline) 50 mg TID PO Last administered on 08/18/16 13:41 ; Admin Dose 50 MG; Start 08/13/16 at 13:00 Furosemide (Lasix) 20 mg DAILY@06 PO Last administered on 08/18/16 06:12; Admin Dose 20 MG; Start 08/15/16 at 06:00 Insulin Human NPH (Humulin N) 30 unit DAILY@20 SC Last administered on 23:30; Admin Dose 30 UNIT; Start 08/16/16 at 20:00 MADHU CAZARES August 18, 2016 16:57
--- NOTE | 2016-08-18 17:14 | CONS ---
Date/Time of Note Date/Time of Note DATE: 08/18/16 TIME: 17:13 Assessment/Plan Assessment/Plan Problems: (1) DM w/o complication type II, uncontrolled Status: Chronic Comment: Improved glycemic control on current dosages. Will continue. Consultation Date/Type/Reason Admit Date/Time August 06, 2016 at 19:45 Initial Consult Date 08/08/16 Type of Consultation: Endocrinology Reason for Consultation T2DM OOC Referring Provider: MADHU CAZARES 24 HR Interval Summary Constitutional: improved, no complaints, requiring O2 Detailed Summary Respiratory: no complaints Cardiovascular: no complaints Gastrointestinal: no complaints Genitourinary: no complaints Musculoskeletal: no complaints Neurologic: no complaints Exam/Review of Systems Vital Signs Vitals VS - Last 72 Hours, by Label Date Time Temp Pulse Resp B/P Pulse Ox O2 Delivery O2 Flow Rate FiO2 08/18/16 16:27 60 08/18/16 16:11 97.7 68 18 125/63 96 08/18/16 12:16 64 08/18/16 11:50 97.6 60 18 104/53 98 08/18/16 08:33 60 08/18/16 08:30 Nasal Cannula 2.0 08/18/16 08:26 3.0 08/18/16 07:42 97.9 62 18 129/55 99 08/18/16 05:30 68 97 30 08/18/16 04:16 60 08/18/16 04:16 97.8 68 21 131/72 100 08/18/16 03:01 68 97 30 08/18/16 01:31 97 30 08/18/16 00:30 65 08/18/16 00:17 97.5 57 16 121/58 98 08/18/16 00:00 Nasal Cannula 2.0 08/17/16 23:32 67 97 30 08/17/16 21:42 67 97 30 08/17/16 20:31 62 08/17/16 20:07 97.8 67 20 102/51 100 08/17/16 16:22 65 08/17/16 16:10 3.0 08/17/16 15:46 97.6 66 18 121/59 94 08/17/16 13:14 117/64 08/17/16 12:56 62 08/17/16 12:17 97.9 62 18 106/50 98 08/17/16 08:30 80 08/17/16 08:30 Nasal Cannula 2.0 08/17/16 07:32 97.8 66 18 119/57 100 08/17/16 05:14 3.0 08/17/16 04:47 76 08/17/16 04:25 62 98 30 08/17/16 04:16 98.3 63 20 122/56 98 08/17/16 02:12 68 98 30 08/17/16 00:09 98.2 65 20 108/54 100 08/17/16 00:09 62 08/16/16 23:49 3.0 08/16/16 23:48 64 97 30 08/16/16 20:35 98.0 70 20 115/56 100 08/16/16 20:10 60 08/16/16 19:25 Nasal Cannula 2.0 08/16/16 16:11 98.3 60 18 117/56 99 08/16/16 16:00 58 08/16/16 12:00 56 08/16/16 11:51 97.8 66 18 118/56 99 08/16/16 08:11 2.0 08/16/16 08:10 Nasal Cannula 2.0 08/16/16 08:02 96.9 65 16 150/65 100 08/16/16 08:00 66 08/16/16 05:05 65 98 30 08/16/16 04:41 57 08/16/16 04:00 98.3 58 19 104/63 98 08/16/16 03:56 62 99 30 08/16/16 01:22 69 99 30 08/16/16 00:57 60 08/16/16 00:15 65 98 30 08/16/16 00:10 98.2 58 20 132/63 100 08/15/16 22:02 62 98 30 08/15/16 20:33 60 08/15/16 20:06 98.2 59 18 118/55 95 08/15/16 19:30 Nasal Cannula 2.0 08/15/16 17:44 2.0 Vital Signs Date Time Temp Pulse Resp B/P Pulse Ox O2 Delivery O2 Flow Rate FiO2 08/18/16 16:27 60 08/18/16 16:11 97.7 18 125/63 96 08/18/16 08:30 Nasal Cannula 2.0 08/18/16 05:30 30 Intake and Output 08/17/16 08/17/16 08/18/16 15:00 23:00 07:00 Intake Total 1040 ml Balance 1040 ml Exam Constitutional: alert, obese, oriented Psych: nl mood/affect, no complaints Respiratory: clear to auscultation, normal air movement Cardiovascular: nl pulses, regular rate and rhythm, No edema, No murmurs/extra sounds, No rub Gastrointestinal: bowel sounds, nl liver, spleen, non-tender, soft, No mass, No rebound or guarding Musculoskeletal: nl extremities to inspection Extremities: normal pulses, No clubbing, No cyanosis, No edema Neurological: [employer] II-XII intact, nl mental status, nl speech, nl strength Additional Comments Bedside Glucose - 72 Hours Test 08/15/16 17:22 08/15/16 20:30 08/16/16 07:49 08/16/16 11:10 Bedside Glucose 89mg/dL (70-220) 144mg/dL (70-220) 163mg/dL (70-220) 151mg/dL (70-220) Test 08/16/16 16:53 08/16/16 20:34 08/17/16 07:54 08/17/16 11:58 Bedside Glucose 72mg/dL (70-220) 75mg/dL (70-220) 179mg/dL (70-220) 190mg/dL (70-220) Test 08/17/16 17:00 08/17/16 21:12 08/17/16 23:25 08/18/16 01:22 Bedside Glucose 72mg/dL (70-220) 66mg/dL (70-220) L 123mg/dL (70-220) 125mg/dL (70-220) Test 08/18/16 08:16 08/18/16 11:45 08/18/16 13:16 Bedside Glucose 105mg/dL (70-220) 112mg/dL (70-220) 81mg/dL (70-220) Results Result Diagram: 08/18/16 0735 08/18/16 0735 Results 24 hrs Laboratory Tests Test 08/17/16 21:12 08/17/16 23:25 08/18/16 01:22 08/18/16 07:35 Bedside Glucose 66 L 123 125 White Blood Count 9.3 Red Blood Count 4.92 Hemoglobin 11.8 L Hematocrit 39.7 Mean Corpuscular Volume 80.7 L Mean Corpuscular Hemoglobin 24.0 L Mean Corpuscular Hemoglobin Concent 29.7 L Red Cell Distribution Width 20.0 H Platelet Count 335 Mean Platelet Volume 9.1 Neutrophils % 75.2 Lymphocytes % 14.5 L Monocytes % 6.9 Eosinophils % 2.7 Basophils % 0.4 Nucleated Red Blood Cells % 0.0 Neutrophils # 7.0 Lymphocytes # 1.4 Monocytes # 0.6 Eosinophils # 0.3 Basophils # 0.0 Nucleated Red Blood Cells # 0.0 Sodium Level 141 Potassium Level 4.4 Chloride Level 95 L Carbon Dioxide Level 36 H Anion Gap 14 Blood Urea Nitrogen 42 H Creatinine 1.16 H Glucose Level 96 # Calcium Level 9.3 Test 08/18/16 08:16 08/18/16 11:45 08/18/16 13:16 Bedside Glucose 105 112 81 Medications Medications Current Medications Ondansetron HCl (Zofran Inj) 4 mg Q6H PRN IV NAUSEA AND/OR VOMITING; Start at 20:30 Morphine Sulfate (morphine) 2 mg Q4H PRN IV PAIN LEVEL 7-10 Last administered on 08/18/16 01:30; Admin Dose 2 MG; Start 08/06/16 at 20:30 Enoxaparin Sodium (Lovenox) 30 mg DAILY SC Last administered on 08/18/16 09:36 ; Admin Dose 30 MG; Start 08/07/16 at 09:00 Miscellaneous Information 1 ea NOTE XX ; Start 08/06/16 at 20:30 Diagnostic Test (Pha) (Accu-Chek) 1 ea 02 XX Last administered on 08/18/16 01: 31; Admin Dose 1 EA; Start 08/07/16 at 02:00 Miscellaneous Information 1 ea NOTE XX ; Start 08/06/16 at 20:30 Glucose (Glutose) 15 gm Q15M PRN PO DECREASED GLUCOSE; Start 08/06/16 at 20:30 Glucose (Glutose) 22.5 gm Q15M PRN PO DECREASED GLUCOSE; Start 08/06/16 at 20: 30 Dextrose (D50w Syringe) 25 ml Q15M PRN IV DECREASED GLUCOSE; Start 08/06/16 at 20:30 Dextrose (D50w Syringe) 50 ml Q15M PRN IV DECREASED GLUCOSE; Start 08/06/16 at 20:30 Glucagon (Glucagen) 1 mg Q15M PRN IM DECREASED GLUCOSE; Start 08/06/16 at 20:30 Glucose (Glutose) 15 gm Q15M PRN BUCCAL DECREASED GLUCOSE; Start 08/06/16 at 20 :30 Aripiprazole (Abilify) 10 mg DAILY PO Last administered on 08/18/16 09:34; Admin Dose 10 MG; Start 08/08/16 at 09:00 Atorvastatin Calcium (Lipitor) 40 mg HS PO Last administered on 08/17/16 21:25 ; Admin Dose 40 MG; Start 08/07/16 at 21:00 Brimonidine Tartrate (Alphagan P 0.15%) 1 drop BID BOTH EYES Last administered on 08/18/16 09:34; Admin Dose 1 DROP; Start 08/07/16 at 21:00 Sertraline HCl (Zoloft) 50 mg DAILY PO Last administered on 08/18/16 09:34; Admin Dose 50 MG; Start 08/08/16 at 09:00 Pantoprazole Sodium (Protonix) 20 mg BID@06,18 PO Last administered on 06:11; Admin Dose 20 MG; Start 08/07/16 at 18:00 Empaglifozin (Jardiance) 25 mg DAILY@08 PO Last administered on 08/18/16 08:13 ; Admin Dose 25 MG; Start 08/08/16 at 08:00 Linagliptin (Tradjenta) 5 mg DAILY@08 PO Last administered on 08/18/16 08:14; Admin Dose 5 MG; Start 08/08/16 at 08:00 Nitroglycerin (Nitroglycerin (Sl Tab) 0.4 Mg) 1 tab Q5M PRN SL ANGINA; Start at 20:00 Insulin Glargine (Lantus) 45 unit DAILY@08 SC Last administered on 08/18/16 08 :37; Admin Dose 45 UNIT; Start 08/09/16 at 08:00 Losartan Potassium (Cozaar) 100 mg DAILY PO Last administered on 08/18/16 09: 34; Admin Dose 100 MG; Start 08/12/16 at 13:30 Metoprolol Succinate (Toprol Xl) 50 mg BID PO Last administered on 08/18/16 09 :35; Admin Dose 50 MG; Start 08/13/16 at 21:00 Amlodipine Besylate (Norvasc) 2.5 mg DAILY PO Last administered on 08/16/16 08 :13; Admin Dose 2.5 MG; Start 08/14/16 at 09:00; Status Future Hold Hydralazine HCl (Apresoline) 50 mg TID PO Last administered on 08/18/16 13:41 ; Admin Dose 50 MG; Start 08/13/16 at 13:00 Furosemide (Lasix) 20 mg DAILY@06 PO Last administered on 08/18/16 06:12; Admin Dose 20 MG; Start 08/15/16 at 06:00 Insulin Human NPH (Humulin N) 30 unit DAILY@20 SC Last administered on 23:30; Admin Dose 30 UNIT; Start 08/16/16 at 20:00 TONY KELLY MD August 18, 2016 17:14
[2016-08-18] MEDS: ATORVASTATIN 40 MG TAB PO SCH (20:33)
[2016-08-18] MEDS: NPH, HUMAN INSULIN ISOPHANE 3ML VIAL SC SCH (20:42)
[2016-08-19] VITALS (14 sets, daily range): BP systolic 114–135; BP diastolic 55–63; PULSE 59–77; RESP 15–20
[2016-08-19] MEDS: ACCUCHECK AT 2AM (Patients on SS coverage) XX SCH (02:00)
[2016-08-19] MEDS: FUROSEMIDE 20 MG TAB PO SCH (05:58)
[2016-08-19] MEDS: PANTOPRAZOLE SODIUM 20 MG TABEC PO SCH ×2 (05:58→17:22)
[2016-08-19] MEDS: EMPAGLIFLOZIN 10 MG TABLET PO SCH (07:27)
[2016-08-19] MEDS: LINAGLIPTIN 5 MG TABLET PO SCH (07:27)
[2016-08-19] MEDS: INSULIN ASPART [NOVOLOG] 3 ML PEN SC SCH ×7 (07:31→20:54)
[2016-08-19] MEDS: INSULIN GLARGINE [LANtus] 3 ML PEN SC SCH (07:31)
[2016-08-19] MEDS: [UNRECOGNIZED DRUG - OTHER] SC SCH ×3 (07:34→17:22)
[2016-08-19 08:18] LABS: ADD SCAN DIFF NO
[2016-08-19 08:19] LABS: BASOPHILS % 0.4 % (0.0-2.0); EOSINOPHILS # 0.2 10^3/ul (0.0-0.5); EOSINOPHILS % 2.6 % (0.0-7.0); HEMATOCRIT 40.5 % (37.0-47.0); HEMOGLOBIN 11.8 g/dl (12.0-16.0); LYMPHOCYTES # 1.6 10^3/ul (0.8-2.9); LYMPHOCYTES % 17.4 % (15.0-51.0); MEAN CORPUSCULAR HEMOGLOBIN 23.9 pg (29.0-33.0); MEAN CORPUSCULAR HGB CONC 29.1 g/dl (32.0-37.0); MEAN PLATELET VOLUME 9.2 fl (7.4-10.4); MONOCYTE # 0.6 10^3/ul (0.3-0.9); MONOCYTES % 6.4 % (0.0-11.0); NEUTROPHIL # 6.6 10^3/ul (1.6-7.5); NEUTROPHILS % 72.9 % (39.0-77.0); PLATELET COUNT 315 10^3/UL (140-415); RED BLOOD COUNT 4.94 10^6/ul (4.20-5.40); RED CELL DISTRIBUTION WIDTH 20.7 % (11.5-14.5); WHITE BLOOD COUNT 9.1 10^3/ul (4.8-10.8)
[2016-08-19 08:46] LABS: CALCIUM 9.2 mg/dl (8.4-10.2); CREATININE 1.22 mg/dl (0.44-1.00); POTASSIUM 4.2 mmol/L (3.5-5.1)
[2016-08-19] MEDS: ARIPIPRAZOLE 10 MG TAB PO SCH (09:06)
[2016-08-19] MEDS: BRIMONIDINE 0.15% 5 ML OPH BOTH EYES SCH ×2 (09:06→20:52)
[2016-08-19] MEDS: SERTRALINE 50 MG TAB PO SCH (09:08)
[2016-08-19] MEDS: METOPROLOL (XL) 50 MG TAB PO SCH ×2 (09:08→20:54)
[2016-08-19] MEDS: LOSARTAN 50 MG TAB PO SCH (09:08)
[2016-08-19] MEDS: ENOXAPARIN 30 MG/0.3 ML SYG SC SCH (09:11)
--- NOTE | 2016-08-19 12:07 | CONS ---
Date/Time of Note Date/Time of Note DATE: 08/19/16 TIME: 12:04 Assessment/Plan Assessment/Plan Problems: (1) DM w/o complication type II, uncontrolled Status: Chronic Comment: Pt. currently w/ hypoglycemia. Will reduce morning dose of novolog from 32 to 28 units qam. Furthermore pt.'s BG levels have been trending down. Will reduce lantus from 45 to 40 units daily. Consultation Date/Type/Reason Admit Date/Time August 06, 2016 at 19:45 Initial Consult Date 08/08/16 Type of Consultation: Endocrinology Reason for Consultation T2DM OOC Referring Provider: MADHU CAZARES 24 HR Interval Summary Constitutional: improved (feels well. WANTS TO GO HOME.), no complaints Detailed Summary Respiratory: no complaints Cardiovascular: no complaints Gastrointestinal: no complaints Genitourinary: no complaints Musculoskeletal: no complaints Neurologic: no complaints Exam/Review of Systems Vital Signs Vitals VS - Last 72 Hours, by Label Date Time Temp Pulse Resp B/P Pulse Ox O2 Delivery O2 Flow Rate FiO2 08/19/16 11:23 97.8 60 18 114/57 99 08/19/16 08:44 59 08/19/16 08:20 Nasal Cannula 2.0 08/19/16 08:04 3.0 08/19/16 07:37 97.9 94 18 134/63 100 08/19/16 05:16 3.0 08/19/16 04:28 63 08/19/16 04:00 97.6 64 15 124/55 99 08/19/16 03:06 77 97 30 08/19/16 01:44 71 98 30 08/19/16 00:38 62 08/19/16 00:00 97.5 62 15 124/60 97 08/18/16 23:00 Nasal Cannula 2.0 08/18/16 22:58 68 97 30 08/18/16 21:20 3.0 08/18/16 21:14 75 96 30 08/18/16 20:12 61 08/18/16 19:47 97.5 60 15 110/53 100 08/18/16 16:27 60 08/18/16 16:11 97.7 68 18 125/63 96 08/18/16 12:16 64 08/18/16 11:50 97.6 60 18 104/53 98 08/18/16 08:33 60 08/18/16 08:30 Nasal Cannula 2.0 08/18/16 08:26 3.0 08/18/16 07:42 97.9 62 18 129/55 99 08/18/16 05:30 68 97 30 08/18/16 04:16 60 08/18/16 04:16 97.8 68 21 131/72 100 08/18/16 03:01 68 97 30 08/18/16 01:31 97 30 08/18/16 00:30 65 08/18/16 00:17 97.5 57 16 121/58 98 08/18/16 00:00 Nasal Cannula 2.0 08/17/16 23:32 67 97 30 08/17/16 21:42 67 97 30 08/17/16 20:31 62 08/17/16 20:07 97.8 67 20 102/51 100 08/17/16 16:22 65 08/17/16 16:10 3.0 08/17/16 15:46 97.6 66 18 121/59 94 08/17/16 13:14 117/64 08/17/16 12:56 62 08/17/16 12:17 97.9 62 18 106/50 98 08/17/16 08:30 80 08/17/16 08:30 Nasal Cannula 2.0 08/17/16 07:32 97.8 66 18 119/57 100 08/17/16 05:14 3.0 08/17/16 04:47 76 08/17/16 04:25 62 98 30 08/17/16 04:16 98.3 63 20 122/56 98 08/17/16 02:12 68 98 30 08/17/16 00:09 98.2 65 20 108/54 100 08/17/16 00:09 62 08/16/16 23:49 3.0 08/16/16 23:48 64 97 30 08/16/16 20:35 98.0 70 20 115/56 100 08/16/16 20:10 60 08/16/16 19:25 Nasal Cannula 2.0 08/16/16 16:11 98.3 60 18 117/56 99 08/16/16 16:00 58 Vital Signs Date Time Temp Pulse Resp B/P Pulse Ox O2 Delivery O2 Flow Rate FiO2 08/19/16 11:23 97.8 60 18 114/57 99 08/19/16 08:20 Nasal Cannula 2.0 08/19/16 03:06 30 Intake and Output 08/18/16 08/18/16 08/19/16 15:00 23:00 07:00 Intake Total 900 ml 500 ml Balance 900 ml 500 ml Exam Constitutional: alert, obese, oriented Psych: nl mood/affect, no complaints Respiratory: clear to auscultation, normal air movement Cardiovascular: nl pulses, regular rate and rhythm, No edema, No murmurs/extra sounds, No rub Gastrointestinal: bowel sounds, nl liver, spleen, non-tender, soft, No mass, No rebound or guarding Musculoskeletal: nl extremities to inspection Extremities: normal pulses, No clubbing, No cyanosis, No edema Neurological: [employer] II-XII intact, nl mental status, nl speech, nl strength Additional Comments Bedside Glucose - 72 Hours Test 08/16/16 16:53 08/16/16 20:34 08/17/16 07:54 08/17/16 11:58 Bedside Glucose 72mg/dL (70-220) 75mg/dL (70-220) 179mg/dL (70-220) 190mg/dL (70-220) Test 08/17/16 17:00 08/17/16 21:12 08/17/16 23:25 08/18/16 01:22 Bedside Glucose 72mg/dL (70-220) 66mg/dL (70-220) L 123mg/dL (70-220) 125mg/dL (70-220) Test 08/18/16 08:16 08/18/16 11:45 08/18/16 13:16 08/18/16 17:20 Bedside Glucose 105mg/dL (70-220) 112mg/dL (70-220) 81mg/dL (70-220) 112mg/dL (70-220) Test 08/18/16 20:26 08/19/16 07:26 08/19/16 11:54 Bedside Glucose 81mg/dL (70-220) 96mg/dL (70-220) 55mg/dL (70-220) L Results Result Diagram: 08/19/16 0740 08/19/16 0740 Results 24 hrs Laboratory Tests Test 08/18/16 13:16 08/18/16 17:20 08/18/16 20:26 08/19/16 07:26 Bedside Glucose 81 112 81 96 Test 08/19/16 07:40 08/19/16 11:54 White Blood Count 9.1 Red Blood Count 4.94 Hemoglobin 11.8 L Hematocrit 40.5 Mean Corpuscular Volume 82.0 Mean Corpuscular Hemoglobin 23.9 L Mean Corpuscular Hemoglobin Concent 29.1 L Red Cell Distribution Width 20.7 H Platelet Count 315 Mean Platelet Volume 9.2 Neutrophils % 72.9 Lymphocytes % 17.4 Monocytes % 6.4 Eosinophils % 2.6 Basophils % 0.4 Nucleated Red Blood Cells % 0.0 Neutrophils # 6.6 Lymphocytes # 1.6 Monocytes # 0.6 Eosinophils # 0.2 Basophils # 0.0 Nucleated Red Blood Cells # 0.0 Sodium Level 139 Potassium Level 4.2 Chloride Level 98 Carbon Dioxide Level 35 H Anion Gap 10 Blood Urea Nitrogen 43 H Creatinine 1.22 H Glucose Level 85 Calcium Level 9.2 Bedside Glucose 55 L Medications Medications Current Medications Ondansetron HCl (Zofran Inj) 4 mg Q6H PRN IV NAUSEA AND/OR VOMITING; Start at 20:30 Morphine Sulfate (morphine) 2 mg Q4H PRN IV PAIN LEVEL 7-10 Last administered on 08/18/16 01:30; Admin Dose 2 MG; Start 08/06/16 at 20:30 Enoxaparin Sodium (Lovenox) 30 mg DAILY SC Last administered on 08/19/16 09:11 ; Admin Dose 30 MG; Start 08/07/16 at 09:00 Miscellaneous Information 1 ea NOTE XX ; Start 08/06/16 at 20:30 Diagnostic Test (Pha) (Accu-Chek) 1 ea 02 XX Last administered on 08/18/16 01: 31; Admin Dose 1 EA; Start 08/07/16 at 02:00 Miscellaneous Information 1 ea NOTE XX ; Start 08/06/16 at 20:30 Glucose (Glutose) 15 gm Q15M PRN PO DECREASED GLUCOSE; Start 08/06/16 at 20:30 Glucose (Glutose) 22.5 gm Q15M PRN PO DECREASED GLUCOSE; Start 08/06/16 at 20: 30 Dextrose (D50w Syringe) 25 ml Q15M PRN IV DECREASED GLUCOSE; Start 08/06/16 at 20:30 Dextrose (D50w Syringe) 50 ml Q15M PRN IV DECREASED GLUCOSE; Start 08/06/16 at 20:30 Glucagon (Glucagen) 1 mg Q15M PRN IM DECREASED GLUCOSE; Start 08/06/16 at 20:30 Glucose (Glutose) 15 gm Q15M PRN BUCCAL DECREASED GLUCOSE; Start 08/06/16 at 20 :30 Aripiprazole (Abilify) 10 mg DAILY PO Last administered on 08/19/16 09:06; Admin Dose 10 MG; Start 08/08/16 at 09:00 Atorvastatin Calcium (Lipitor) 40 mg HS PO Last administered on 08/18/16 20:33 ; Admin Dose 40 MG; Start 08/07/16 at 21:00 Brimonidine Tartrate (Alphagan P 0.15%) 1 drop BID BOTH EYES Last administered on 08/19/16 09:06; Admin Dose 1 DROP; Start 08/07/16 at 21:00 Sertraline HCl (Zoloft) 50 mg DAILY PO Last administered on 08/19/16 09:08; Admin Dose 50 MG; Start 08/08/16 at 09:00 Pantoprazole Sodium (Protonix) 20 mg BID@06,18 PO Last administered on 05:58; Admin Dose 20 MG; Start 08/07/16 at 18:00 Empaglifozin (Jardiance) 25 mg DAILY@08 PO Last administered on 08/19/16 07:27 ; Admin Dose 25 MG; Start 08/08/16 at 08:00 Linagliptin (Tradjenta) 5 mg DAILY@08 PO Last administered on 08/19/16 07:27; Admin Dose 5 MG; Start 08/08/16 at 08:00 Nitroglycerin (Nitroglycerin (Sl Tab) 0.4 Mg) 1 tab Q5M PRN SL ANGINA; Start at 20:00 Insulin Glargine (Lantus) 45 unit DAILY@08 SC Last administered on 08/19/16 07 :31; Admin Dose 45 UNIT; Start 08/09/16 at 08:00 Losartan Potassium (Cozaar) 100 mg DAILY PO Last administered on 08/19/16 09: 08; Admin Dose 100 MG; Start 08/12/16 at 13:30 Metoprolol Succinate (Toprol Xl) 50 mg BID PO Last administered on 08/19/16 09 :08; Admin Dose 50 MG; Start 08/13/16 at 21:00 Amlodipine Besylate (Norvasc) 2.5 mg DAILY PO Last administered on 08/16/16 08 :13; Admin Dose 2.5 MG; Start 08/14/16 at 09:00; Status Future Hold Hydralazine HCl (Apresoline) 50 mg TID PO Last administered on 08/19/16 09:06 ; Admin Dose 50 MG; Start 08/13/16 at 13:00 Furosemide (Lasix) 20 mg DAILY@06 PO Last administered on 08/19/16 05:58; Admin Dose 20 MG; Start 08/15/16 at 06:00 Insulin Human NPH (Humulin N) 30 unit DAILY@20 SC Last administered on 20:42; Admin Dose 30 UNIT; Start 08/16/16 at 20:00 TONY KELLY MD August 19, 2016 12:07
--- NOTE | 2016-08-19 13:26 | DS ---
Date/Time of Note Date/Time of Note DATE: 08/19/16 TIME: 13:24 Discharge Summary Admission/Discharge Info Admit Date/Time August 06, 2016 at 19:45 Discharge Date/Time 08/19/16 Final Diagnosis 1) COPD 2) CHF 3) diabetes Hx of Present Illness Patient with diabetes, morbid obesity comes in with shortness of breath due to COPD and CHF Hospital Course Patient has denies any shortness of breath denies chest pain, awaits for arrangement of BiPAP at home prior to DC. Patient treated with breathing treatment and oxygen. ASSESSMENT AND PLAN: - Diastolic acute on chronic congestive heart failure exacerbation. Continue Lasix. Dr. Cota is following patient. Cardiology consultation. Continue to monitor electrolytes. - Possible sleep apnea, continue BiPAP. is following in pulmonology consultation - Hypertension. Continue Toprol and Norvasc. - Acute coronary syndrome ruled out, troponin negative 3, stress test with no ischemia - Diabetes mellitus type 2. Dr. Lyon is following in endocrinology consultation. - Acute on chronic kidney disease. Continue to monitor BUN and creatinine. - Hyperlipidemia. Continue statin. - Morbid obesity with BMI 50. Weight loss advised. Continue Lovenox for deep venous thrombosis prophylaxis and Pepcid for peptic ulcer disease prophylaxis. Further recommendations based on clinical course. Plan of care discussed with Dr. Garza. Home Meds Active Scripts Potassium Chloride* (Potassium Chloride*) 20 Meq Tablet.er, 20 MEQ PO DAILY, # 30 TAB.SA Prov:ENRRIQUE AGUILAR 03/14/16 Reported Medications Insulin Glargine,Hum.rec.anlog (Jennie Mcintyre) 300 Unit/1 Ml Insuln.pen, 10 UNIT SQ AC BREAKFAST 08/07/16 Insulin Isophan/Regular (Humulin 70/30) 100 Units/Ml Susp, 30 UNIT SC AC BREAKFAST, EA 08/07/16 Pramlintide (Symlinpen 120) 2,700 Mcg/2.7 Ml Pen.injctr, 120 MCG SC TID 08/07/16 Furosemide* (Furosemide*) 40 Mg Tablet, 40 MG PO BID, TAB 08/06/16 Insulin Glargine* (Lantus*) 100 Unit/Ml Soln, 10 UNIT SC BID, #1 VIAL 08/06/16 Insulin Aspart* (Novolog Insulin Pen*) 100 Unit/Ml Soln, 0 SC WITH MEALS, EA 32 UNITS-QAM, 12 UNITS-NOON, 32 UNITS-QPM 08/06/16 Fluticasone Propionate* (Fluticasone Propionate* Nasal) 50 Mcg/[place] - 16 Gm [place].susp, 1 SPRAY NASAL DAILY, #1 BOTTLE TO EACH NOSTRIL 08/06/16 Albuterol Sulfate* (Ventolin HFA*) 18 Gm Hfa.aer.ad, 2 PUFF INHALATION Q4H, #1 INHALER 08/06/16 Acetaminophen (PAIN & FEVER) 500 Mg Tablet, 1000 MG PO BID, TAB 03/06/16 Pramlintide (Symlinpen 120) 2,700 Mcg/2.7 Ml Pen.injctr, 2700 MCG SC TID BEFORE MEALS 03/06/16 Empagliflozin/Linagliptin (Glyxambi 25 mg-5 mg Tablet) 1 Each Tablet, 1 EACH PO QAM, TAB 03/06/16 Metoprolol Succinate* (Toprol XL*) 100 Mg Tab.sr.24h, 100 MG PO DAILY, #30 TAB 03/06/16 Isosorbide Mononitrate* (Isosorbide Mononitrate*) 60 Mg Tab.er.24h, 60 MG PO DAILY, TAB 03/06/16 Dorzolamide-Timolol* (Cosopt*) 2%-0.5% Soln, 1 DROP BOTH EYES BID, BOTTLE 12/18/15 Brimonidine Tartrate* (Brimonidine Tartrate*) 0.15%-10ML Drop Opht, 1 DROP BOTH EYES BID, #1 EA 12/18/15 Aripiprazole* (Abilify*) 10 Mg Tablet, 10 MG PO DAILY, #30 TAB 09/03/15 Clopidogrel Bisulfate* (Clopidogrel Bisulfate*) 75 Mg Tablet, 75 MG PO DAILY, TAB 11/28/14 Sertraline Hcl* (Zoloft*) 50 Mg Tablet, 50 MG PO DAILY, TAB 07/05/14 Atorvastatin* (Atorvastatin*) 40 Mg Tablet, 40 MG PO HS, TAB 05/07/14 Omeprazole* (Omeprazole*) 20 Mg Capsule.dr, 20 MG PO BID 09/28/12 Primary Care Provider Ari Alexander MD Pending Labs Laboratory Tests Test 08/18/16 17:20 08/18/16 20:26 08/19/16 07:26 08/19/16 07:40 Bedside Glucose 112mg/dL (70-220) 81mg/dL (70-220) 96mg/dL (70-220) White Blood Count 9.110^3/ul (4.8-10.8) Red Blood Count 4.9410^6/ul (4.20-5.40) Hemoglobin 11.8g/dl (12.0-16.0) Hematocrit 40.5% (37.0-47.0) Mean Corpuscular Volume 82.0fl (82.0-101.0) Mean Corpuscular Hemoglobin 23.9pg (29.0-33.0) Mean Corpuscular Hemoglobin Concent 29.1g/dl (32.0-37.0) Red Cell Distribution Width 20.7% (11.5-14.5) Platelet Count 15893^3/UL (140-415) Mean Platelet Volume 9.2fl (7.4-10.4) Neutrophils % 72.9% (39.0-77.0) Lymphocytes % 17.4% (15.0-51.0) Monocytes % 6.4% (0.0-11.0) Eosinophils % 2.6% (0.0-7.0) Basophils % 0.4% (0.0-2.0) Nucleated Red Blood Cells % 0.0/100WBC (0.0-0.0) Neutrophils # 6.610^3/ul (1.6-7.5) Lymphocytes # 1.610^3/ul (0.8-2.9) Monocytes # 0.610^3/ul (0.3-0.9) Eosinophils # 0.210^3/ul (0.0-0.5) Basophils # 0.010^3/ul (0.0-0.1) Nucleated Red Blood Cells # 0.010^3/ul (0.0-0.0) Sodium Level 139mmol/L (135-144) Potassium Level 4.2mmol/L (3.5-5.1) Chloride Level 98mmol/L (97-110) Carbon Dioxide Level 35mmol/L (21-31) Anion Gap 10 (8-16) Blood Urea Nitrogen 43mg/dl (7-20) Creatinine 1.22mg/dl (0.44-1.00) Glucose Level 85mg/dl (70-220) Calcium Level 9.2mg/dl (8.4-10.2) Test 08/19/16 11:54 08/19/16 12:16 Bedside Glucose 55mg/dL (70-220) 98mg/dL (70-220) BRISA PURVIS August 19, 2016 13:26
--- NOTE | 2016-08-19 14:11 | CONS ---
Date/Time of Note Date/Time of Note DATE: 08/19/16 TIME: 14:10 Consult Date/Type/Reason Admit Date/Time August 06, 2016 at 19:45 Initial Consult Date 08/08/16 Type of Consultation: Pulm Ordering Provider: MADHU CAZARES Subjective No events. Objective Vital Signs Date Time Temp Pulse Resp B/P Pulse Ox O2 Delivery O2 Flow Rate FiO2 08/19/16 12:09 59 08/19/16 11:23 97.8 18 114/57 99 08/19/16 08:20 Nasal Cannula 2.0 08/19/16 03:06 30 Intake and Output 08/18/16 08/18/16 08/19/16 15:00 23:00 07:00 Intake Total 900 ml 500 ml Balance 900 ml 500 ml Exam HEENT: Neck supple; no JVD; no LAD CVS: RRR, S1 and S2 CHEST: Clear ABD: Soft, NT, + BS EXT: No c/c/ + edema Results/Medications Result Diagram: 08/19/16 0740 08/19/16 0740 Results 24 hrs Laboratory Tests Test 08/18/16 17:20 08/18/16 20:26 08/19/16 07:26 08/19/16 07:40 Bedside Glucose 112 81 96 White Blood Count 9.1 Red Blood Count 4.94 Hemoglobin 11.8 L Hematocrit 40.5 Mean Corpuscular Volume 82.0 Mean Corpuscular Hemoglobin 23.9 L Mean Corpuscular Hemoglobin Concent 29.1 L Red Cell Distribution Width 20.7 H Platelet Count 315 Mean Platelet Volume 9.2 Neutrophils % 72.9 Lymphocytes % 17.4 Monocytes % 6.4 Eosinophils % 2.6 Basophils % 0.4 Nucleated Red Blood Cells % 0.0 Neutrophils # 6.6 Lymphocytes # 1.6 Monocytes # 0.6 Eosinophils # 0.2 Basophils # 0.0 Nucleated Red Blood Cells # 0.0 Sodium Level 139 Potassium Level 4.2 Chloride Level 98 Carbon Dioxide Level 35 H Anion Gap 10 Blood Urea Nitrogen 43 H Creatinine 1.22 H Glucose Level 85 Calcium Level 9.2 Test 08/19/16 11:54 08/19/16 12:16 Bedside Glucose 55 L 98 Medications Current Medications Ondansetron HCl (Zofran Inj) 4 mg Q6H PRN IV NAUSEA AND/OR VOMITING; Start at 20:30 Morphine Sulfate (morphine) 2 mg Q4H PRN IV PAIN LEVEL 7-10 Last administered on 08/18/16 01:30; Admin Dose 2 MG; Start 08/06/16 at 20:30 Enoxaparin Sodium (Lovenox) 30 mg DAILY SC Last administered on 08/19/16 09:11 ; Admin Dose 30 MG; Start 08/07/16 at 09:00 Miscellaneous Information 1 ea NOTE XX ; Start 08/06/16 at 20:30 Diagnostic Test (Pha) (Accu-Chek) 1 ea 02 XX Last administered on 08/18/16 01: 31; Admin Dose 1 EA; Start 08/07/16 at 02:00 Miscellaneous Information 1 ea NOTE XX ; Start 08/06/16 at 20:30 Glucose (Glutose) 15 gm Q15M PRN PO DECREASED GLUCOSE; Start 08/06/16 at 20:30 Glucose (Glutose) 22.5 gm Q15M PRN PO DECREASED GLUCOSE; Start 08/06/16 at 20: 30 Dextrose (D50w Syringe) 25 ml Q15M PRN IV DECREASED GLUCOSE; Start 08/06/16 at 20:30 Dextrose (D50w Syringe) 50 ml Q15M PRN IV DECREASED GLUCOSE; Start 08/06/16 at 20:30 Glucagon (Glucagen) 1 mg Q15M PRN IM DECREASED GLUCOSE; Start 08/06/16 at 20:30 Glucose (Glutose) 15 gm Q15M PRN BUCCAL DECREASED GLUCOSE; Start 08/06/16 at 20 :30 Aripiprazole (Abilify) 10 mg DAILY PO Last administered on 08/19/16 09:06; Admin Dose 10 MG; Start 08/08/16 at 09:00 Atorvastatin Calcium (Lipitor) 40 mg HS PO Last administered on 08/18/16 20:33 ; Admin Dose 40 MG; Start 08/07/16 at 21:00 Brimonidine Tartrate (Alphagan P 0.15%) 1 drop BID BOTH EYES Last administered on 08/19/16 09:06; Admin Dose 1 DROP; Start 08/07/16 at 21:00 Sertraline HCl (Zoloft) 50 mg DAILY PO Last administered on 08/19/16 09:08; Admin Dose 50 MG; Start 08/08/16 at 09:00 Pantoprazole Sodium (Protonix) 20 mg BID@06,18 PO Last administered on 05:58; Admin Dose 20 MG; Start 08/07/16 at 18:00 Empaglifozin (Jardiance) 25 mg DAILY@08 PO Last administered on 08/19/16 07:27 ; Admin Dose 25 MG; Start 08/08/16 at 08:00 Linagliptin (Tradjenta) 5 mg DAILY@08 PO Last administered on 08/19/16 07:27; Admin Dose 5 MG; Start 08/08/16 at 08:00 Nitroglycerin (Nitroglycerin (Sl Tab) 0.4 Mg) 1 tab Q5M PRN SL ANGINA; Start at 20:00 Losartan Potassium (Cozaar) 100 mg DAILY PO Last administered on 08/19/16 09: 08; Admin Dose 100 MG; Start 08/12/16 at 13:30 Metoprolol Succinate (Toprol Xl) 50 mg BID PO Last administered on 08/19/16 09 :08; Admin Dose 50 MG; Start 08/13/16 at 21:00 Amlodipine Besylate (Norvasc) 2.5 mg DAILY PO Last administered on 08/16/16 08 :13; Admin Dose 2.5 MG; Start 08/14/16 at 09:00; Status Future Hold Hydralazine HCl (Apresoline) 50 mg TID PO Last administered on 08/19/16 12:38 ; Admin Dose 50 MG; Start 08/13/16 at 13:00 Furosemide (Lasix) 20 mg DAILY@06 PO Last administered on 08/19/16 05:58; Admin Dose 20 MG; Start 08/15/16 at 06:00 Insulin Human NPH (Humulin N) 30 unit DAILY@20 SC Last administered on 20:42; Admin Dose 30 UNIT; Start 08/16/16 at 20:00 Insulin Glargine (Lantus) 40 unit DAILY@08 SC ; Start 08/20/16 at 08:00 Assessment/Plan Additional Assessment/Plan IMP: 1. CHF 2. DAVID/OHS RECS: 1. Home BiPAP 2. Outpatient PSG and pulm f/u MANOJ FRANCO MD August 19, 2016 14:11
--- NOTE | 2016-08-19 16:01 | CONS ---
Date/Time of Note Date/Time of Note DATE: 08/19/16 TIME: 15:54 Assessment/Plan Assessment/Plan Additional Assessment/Plan Atypical chest pain Morbid Obesity CHF Abnormal electrocardiogram Hypertensive urgency Diabetes mellitus Anemia. Hemodynamically stable Heart failure clinically compensated Stress test no myocardial ischemia Continue Metoprolol Continue Losartan Off Norvasc Continue Insulin Continue Lipitor Counseled to lose weight Consultation Date/Type/Reason Admit Date/Time August 06, 2016 at 19:45 Constitutional: improved (feels well. WANTS TO GO HOME.), no complaints Eyes: no complaints ENT: no complaints Respiratory: no complaints Cardiovascular: no complaints Gastrointestinal: no complaints Genitourinary: no complaints Musculoskeletal: no complaints Skin: no complaints Neurologic: no complaints Endocrine: no complaints Lymphatic: no complaints Psychological: nl mood/affect, no complaints Immunologic: no complaints Past Medical History Medical History: congestive heart failure, coronary artery disease, diabetes, high cholesterol, hypertension, renal disease, other (glaucoma w/ B vision loss , anxiety, depression) Past Surgical History Past Surgical Hx: other (Ovarian cystectomy, BECKY, laser eye surgery) Social History Alcohol Use: none Smoking Status: Never smoker Drug Use: none Exam/Review of Systems Vital Signs Vitals Vital Signs Date Time Temp Pulse Resp B/P Pulse Ox O2 Delivery O2 Flow Rate FiO2 08/19/16 12:09 59 08/19/16 11:23 97.8 18 114/57 99 08/19/16 08:20 Nasal Cannula 2.0 08/19/16 03:06 30 Intake and Output 08/18/16 08/18/16 08/19/16 15:00 23:00 07:00 Intake Total 900 ml 500 ml Balance 900 ml 500 ml Exam Constitutional: alert, oriented Head: atraumatic, normocephalic Neck: non-tender, supple Respiratory: clear to auscultation Gastrointestinal: nl liver, spleen, non-tender, soft Extremities: normal pulses Results Result Diagram: 08/19/16 0740 08/19/16 0740 Results 24 hrs Laboratory Tests Test 08/18/16 17:20 08/18/16 20:26 08/19/16 07:26 08/19/16 07:40 Bedside Glucose 112 81 96 White Blood Count 9.1 Red Blood Count 4.94 Hemoglobin 11.8 L Hematocrit 40.5 Mean Corpuscular Volume 82.0 Mean Corpuscular Hemoglobin 23.9 L Mean Corpuscular Hemoglobin Concent 29.1 L Red Cell Distribution Width 20.7 H Platelet Count 315 Mean Platelet Volume 9.2 Neutrophils % 72.9 Lymphocytes % 17.4 Monocytes % 6.4 Eosinophils % 2.6 Basophils % 0.4 Nucleated Red Blood Cells % 0.0 Neutrophils # 6.6 Lymphocytes # 1.6 Monocytes # 0.6 Eosinophils # 0.2 Basophils # 0.0 Nucleated Red Blood Cells # 0.0 Sodium Level 139 Potassium Level 4.2 Chloride Level 98 Carbon Dioxide Level 35 H Anion Gap 10 Blood Urea Nitrogen 43 H Creatinine 1.22 H Glucose Level 85 Calcium Level 9.2 Test 08/19/16 11:54 08/19/16 12:16 Bedside Glucose 55 L 98 Medications Medications Current Medications Ondansetron HCl (Zofran Inj) 4 mg Q6H PRN IV NAUSEA AND/OR VOMITING; Start at 20:30 Morphine Sulfate (morphine) 2 mg Q4H PRN IV PAIN LEVEL 7-10 Last administered on 08/18/16 01:30; Admin Dose 2 MG; Start 08/06/16 at 20:30 Enoxaparin Sodium (Lovenox) 30 mg DAILY SC Last administered on 08/19/16 09:11 ; Admin Dose 30 MG; Start 08/07/16 at 09:00 Miscellaneous Information 1 ea NOTE XX ; Start 08/06/16 at 20:30 Diagnostic Test (Pha) (Accu-Chek) 1 ea 02 XX Last administered on 08/18/16 01: 31; Admin Dose 1 EA; Start 08/07/16 at 02:00 Miscellaneous Information 1 ea NOTE XX ; Start 08/06/16 at 20:30 Glucose (Glutose) 15 gm Q15M PRN PO DECREASED GLUCOSE; Start 08/06/16 at 20:30 Glucose (Glutose) 22.5 gm Q15M PRN PO DECREASED GLUCOSE; Start 08/06/16 at 20: 30 Dextrose (D50w Syringe) 25 ml Q15M PRN IV DECREASED GLUCOSE; Start 08/06/16 at 20:30 Dextrose (D50w Syringe) 50 ml Q15M PRN IV DECREASED GLUCOSE; Start 08/06/16 at 20:30 Glucagon (Glucagen) 1 mg Q15M PRN IM DECREASED GLUCOSE; Start 08/06/16 at 20:30 Glucose (Glutose) 15 gm Q15M PRN BUCCAL DECREASED GLUCOSE; Start 08/06/16 at 20 :30 Aripiprazole (Abilify) 10 mg DAILY PO Last administered on 08/19/16 09:06; Admin Dose 10 MG; Start 08/08/16 at 09:00 Atorvastatin Calcium (Lipitor) 40 mg HS PO Last administered on 08/18/16 20:33 ; Admin Dose 40 MG; Start 08/07/16 at 21:00 Brimonidine Tartrate (Alphagan P 0.15%) 1 drop BID BOTH EYES Last administered on 08/19/16 09:06; Admin Dose 1 DROP; Start 08/07/16 at 21:00 Sertraline HCl (Zoloft) 50 mg DAILY PO Last administered on 08/19/16 09:08; Admin Dose 50 MG; Start 08/08/16 at 09:00 Pantoprazole Sodium (Protonix) 20 mg BID@06,18 PO Last administered on 05:58; Admin Dose 20 MG; Start 08/07/16 at 18:00 Empaglifozin (Jardiance) 25 mg DAILY@08 PO Last administered on 08/19/16 07:27 ; Admin Dose 25 MG; Start 08/08/16 at 08:00 Linagliptin (Tradjenta) 5 mg DAILY@08 PO Last administered on 08/19/16 07:27; Admin Dose 5 MG; Start 08/08/16 at 08:00 Nitroglycerin (Nitroglycerin (Sl Tab) 0.4 Mg) 1 tab Q5M PRN SL ANGINA; Start at 20:00 Losartan Potassium (Cozaar) 100 mg DAILY PO Last administered on 08/19/16 09: 08; Admin Dose 100 MG; Start 08/12/16 at 13:30 Metoprolol Succinate (Toprol Xl) 50 mg BID PO Last administered on 08/19/16 09 :08; Admin Dose 50 MG; Start 08/13/16 at 21:00 Amlodipine Besylate (Norvasc) 2.5 mg DAILY PO Last administered on 08/16/16 08 :13; Admin Dose 2.5 MG; Start 08/14/16 at 09:00; Status Future Hold Hydralazine HCl (Apresoline) 50 mg TID PO Last administered on 08/19/16 12:38 ; Admin Dose 50 MG; Start 08/13/16 at 13:00 Furosemide (Lasix) 20 mg DAILY@06 PO Last administered on 08/19/16 05:58; Admin Dose 20 MG; Start 08/15/16 at 06:00 Insulin Human NPH (Humulin N) 30 unit DAILY@20 SC Last administered on 20:42; Admin Dose 30 UNIT; Start 08/16/16 at 20:00 Insulin Glargine (Lantus) 40 unit DAILY@08 SC ; Start 08/20/16 at 08:00 DAMION LARA M.D. August 19, 2016 16:01
[2016-08-19] MEDS: ATORVASTATIN 40 MG TAB PO SCH (20:53)
[2016-08-19] MEDS: NPH, HUMAN INSULIN ISOPHANE 3ML VIAL SC SCH (21:04)
[2016-08-20] VITALS (10 sets, daily range): BP systolic 101–119; BP diastolic 58–63; PULSE 54–76; RESP 18–20
[2016-08-20] MEDS: ACCUCHECK AT 2AM (Patients on SS coverage) XX SCH (02:00)
[2016-08-20] MEDS: FUROSEMIDE 20 MG TAB PO SCH (06:41)
[2016-08-20] MEDS: PANTOPRAZOLE SODIUM 20 MG TABEC PO SCH (06:41)
[2016-08-20] MEDS: [UNRECOGNIZED DRUG - OTHER] SC SCH ×2 (07:30→11:30)
[2016-08-20] MEDS: LINAGLIPTIN 5 MG TABLET PO SCH (07:44)
[2016-08-20] MEDS: EMPAGLIFLOZIN 10 MG TABLET PO SCH (07:45)
[2016-08-20] MEDS: INSULIN ASPART [NOVOLOG] 3 ML PEN SC SCH ×3 (07:47→11:44)
[2016-08-20] MEDS ORDERED: INSULIN GLARGINE [LANtus] 3 ML PEN SC SCH (08:00)
[2016-08-20] MEDS ORDERED: INSULIN ASPART [NOVOLOG] 3 ML PEN SC SCH (08:00)
[2016-08-20] MEDS: BRIMONIDINE 0.15% 5 ML OPH BOTH EYES SCH (08:30)
[2016-08-20] MEDS: SERTRALINE 50 MG TAB PO SCH (08:30)
[2016-08-20] MEDS: ARIPIPRAZOLE 10 MG TAB PO SCH (08:31)
[2016-08-20] MEDS: METOPROLOL (XL) 50 MG TAB PO SCH (08:31)
[2016-08-20] MEDS: LOSARTAN 50 MG TAB PO SCH (08:31)
[2016-08-20] MEDS: ENOXAPARIN 30 MG/0.3 ML SYG SC SCH (08:32)
--- NOTE | 2016-08-20 12:48 | CONS ---
Date/Time of Note Date/Time of Note DATE: 08/20/16 TIME: 12:47 Consult Date/Type/Reason Admit Date/Time August 06, 2016 at 19:45 Initial Consult Date 08/08/16 Type of Consultation: Pulm Ordering Provider: MADHU CAZARES Subjective No events. Objective Vital Signs Date Time Temp Pulse Resp B/P Pulse Ox O2 Delivery O2 Flow Rate FiO2 08/20/16 12:24 62 08/20/16 11:27 98.0 18 103/63 92 08/20/16 08:10 Nasal Cannula 2.0 08/20/16 02:30 40 Intake and Output 08/19/16 08/19/16 08/20/16 15:00 23:00 07:00 Intake Total 720 ml 240 ml Balance 720 ml 240 ml Exam HEENT: Neck supple; no JVD; no LAD CVS: RRR, S1 and S2 CHEST: Clear ABD: Soft, NT, + BS EXT: No c/c/ + edema Results/Medications Result Diagram: 08/19/16 0740 08/19/1640 Results 24 hrs Laboratory Tests Test 08/19/16 17:24 08/19/16 20:52 08/20/16 07:47 08/20/16 11:42 Bedside Glucose 76 127 77 104 Medications Current Medications Ondansetron HCl (Zofran Inj) 4 mg Q6H PRN IV NAUSEA AND/OR VOMITING; Start at 20:30 Morphine Sulfate (morphine) 2 mg Q4H PRN IV PAIN LEVEL 7-10 Last administered on 08/18/16 01:30; Admin Dose 2 MG; Start 08/06/16 at 20:30 Enoxaparin Sodium (Lovenox) 30 mg DAILY SC Last administered on 08/20/16 08:32 ; Admin Dose 30 MG; Start 08/07/16 at 09:00 Diagnostic Test (Pha) (Accu-Chek) 1 ea 02 XX Last administered on 08/18/16 01: 31; Admin Dose 1 EA; Start 08/07/16 at 02:00 Miscellaneous Information 1 ea NOTE XX ; Start 08/06/16 at 20:30 Glucose (Glutose) 15 gm Q15M PRN PO DECREASED GLUCOSE; Start 08/06/16 at 20:30 Glucose (Glutose) 22.5 gm Q15M PRN PO DECREASED GLUCOSE; Start 08/06/16 at 20: 30 Dextrose (D50w Syringe) 25 ml Q15M PRN IV DECREASED GLUCOSE; Start 08/06/16 at 20:30 Dextrose (D50w Syringe) 50 ml Q15M PRN IV DECREASED GLUCOSE; Start 08/06/16 at 20:30 Glucagon (Glucagen) 1 mg Q15M PRN IM DECREASED GLUCOSE; Start 08/06/16 at 20:30 Glucose (Glutose) 15 gm Q15M PRN BUCCAL DECREASED GLUCOSE; Start 08/06/16 at 20 :30 Aripiprazole (Abilify) 10 mg DAILY PO Last administered on 08/20/16 08:31; Admin Dose 10 MG; Start 08/08/16 at 09:00 Atorvastatin Calcium (Lipitor) 40 mg HS PO Last administered on 08/19/16 20:53 ; Admin Dose 40 MG; Start 08/07/16 at 21:00 Brimonidine Tartrate (Alphagan P 0.15%) 1 drop BID BOTH EYES Last administered on 08/20/16 08:30; Admin Dose 1 DROP; Start 08/07/16 at 21:00 Sertraline HCl (Zoloft) 50 mg DAILY PO Last administered on 08/20/16 08:30; Admin Dose 50 MG; Start 08/08/16 at 09:00 Pantoprazole Sodium (Protonix) 20 mg BID@06,18 PO Last administered on 06:41; Admin Dose 20 MG; Start 08/07/16 at 18:00 Empaglifozin (Jardiance) 25 mg DAILY@08 PO Last administered on 08/20/16 07:45 ; Admin Dose 25 MG; Start 08/08/16 at 08:00 Linagliptin (Tradjenta) 5 mg DAILY@08 PO Last administered on 08/20/16 07:44; Admin Dose 5 MG; Start 08/08/16 at 08:00 Nitroglycerin (Nitroglycerin (Sl Tab) 0.4 Mg) 1 tab Q5M PRN SL ANGINA; Start at 20:00 Losartan Potassium (Cozaar) 100 mg DAILY PO Last administered on 08/20/16 08: 31; Admin Dose 100 MG; Start 08/12/16 at 13:30 Metoprolol Succinate (Toprol Xl) 50 mg BID PO Last administered on 08/20/16 08 :31; Admin Dose 50 MG; Start 08/13/16 at 21:00 Amlodipine Besylate (Norvasc) 2.5 mg DAILY PO Last administered on 08/16/16 08 :13; Admin Dose 2.5 MG; Start 08/14/16 at 09:00; Status Future Hold Hydralazine HCl (Apresoline) 50 mg TID PO Last administered on 08/20/16 08:31 ; Admin Dose 50 MG; Start 08/13/16 at 13:00 Furosemide (Lasix) 20 mg DAILY@06 PO Last administered on 08/20/16 06:41; Admin Dose 20 MG; Start 08/15/16 at 06:00 Insulin Human NPH (Humulin N) 30 unit DAILY@20 SC Last administered on 21:04; Admin Dose 30 UNIT; Start 08/16/16 at 20:00 Insulin Glargine (Lantus) 40 unit DAILY@08 SC Last administered on 08/20/16 07 :50; Admin Dose 40 UNIT; Start 08/20/16 at 08:00 Assessment/Plan Additional Assessment/Plan IMP: 1. CHF 2. DAVID/OHS RECS: 1. Rx for home BiPAP provided 2. Outpatient PSG and pulm f/u in 1 week 3. Home health MANOJ FRANCO MD August 20, 2016 12:48
--- NOTE | 2016-08-20 13:34 | DS ---
Date/Time of Note Date/Time of Note DATE: 08/20/16 TIME: 13:34 Discharge Summary Admission/Discharge Info Admit Date/Time August 06, 2016 at 19:45 Discharge Date/Time 08/20/16 Final Diagnosis 1) COPD 2) CHF 3) diabetes Patient Condition: Fair Consults cardiology pulmonary Hx of Present Illness Patient with diabetes, morbid obesity comes in with shortness of breath due to COPD and CHF Hospital Course Patient has denies any shortness of breath denies chest pain, awaits for arrangement of BiPAP at home prior to DC. Patient treated with breathing treatment and oxygen. ASSESSMENT AND PLAN: - Diastolic acute on chronic congestive heart failure exacerbation. Continue Lasix. Dr. Cota is following patient. Cardiology consultation. Continue to monitor electrolytes. - Possible sleep apnea, continue BiPAP. is following in pulmonology consultation - Hypertension. Continue Toprol and Norvasc. - Acute coronary syndrome ruled out, troponin negative 3, stress test with no ischemia - Diabetes mellitus type 2. Dr. Lyon is following in endocrinology consultation. - Acute on chronic kidney disease. Continue to monitor BUN and creatinine. - Hyperlipidemia. Continue statin. - Morbid obesity with BMI 50. Weight loss advised. Continue Lovenox for deep venous thrombosis prophylaxis and Pepcid for peptic ulcer disease prophylaxis. Further recommendations based on clinical course. Plan of care discussed with Dr. Garza. Home Meds Active Scripts Potassium Chloride* (Potassium Chloride*) 20 Meq Tablet.er, 20 MEQ PO DAILY, # 30 TAB.SA Prov:ENRRIQUE AGUILAR 03/14/16 Reported Medications Insulin Glargine,Hum.rec.anlog (Jennie Mcintyre) 300 Unit/1 Ml Insuln.pen, 10 UNIT SQ AC BREAKFAST 08/07/16 Insulin Isophan/Regular (Humulin 70/30) 100 Units/Ml Susp, 30 UNIT SC AC BREAKFAST, EA 08/07/16 Pramlintide (Symlinpen 120) 2,700 Mcg/2.7 Ml Pen.injctr, 120 MCG SC TID 08/07/16 Furosemide* (Furosemide*) 40 Mg Tablet, 40 MG PO BID, TAB 08/06/16 Insulin Glargine* (Lantus*) 100 Unit/Ml Soln, 10 UNIT SC BID, #1 VIAL 08/06/16 Insulin Aspart* (Novolog Insulin Pen*) 100 Unit/Ml Soln, 0 SC WITH MEALS, EA 32 UNITS-QAM, 12 UNITS-NOON, 32 UNITS-QPM 08/06/16 Fluticasone Propionate* (Fluticasone Propionate* Nasal) 50 Mcg/Baltic - 16 Gm Baltic.susp, 1 SPRAY NASAL DAILY, #1 BOTTLE TO EACH NOSTRIL 08/06/16 Albuterol Sulfate* (Ventolin HFA*) 18 Gm Hfa.aer.ad, 2 PUFF INHALATION Q4H, #1 INHALER 08/06/16 Acetaminophen (PAIN & FEVER) 500 Mg Tablet, 1000 MG PO BID, TAB 03/06/16 Pramlintide (Symlinpen 120) 2,700 Mcg/2.7 Ml Pen.injctr, 2700 MCG SC TID BEFORE MEALS 03/06/16 Empagliflozin/Linagliptin (Glyxambi 25 mg-5 mg Tablet) 1 Each Tablet, 1 EACH PO QAM, TAB 03/06/16 Metoprolol Succinate* (Toprol XL*) 100 Mg Tab.sr.24h, 100 MG PO DAILY, #30 TAB 03/06/16 Isosorbide Mononitrate* (Isosorbide Mononitrate*) 60 Mg Tab.er.24h, 60 MG PO DAILY, TAB 03/06/16 Dorzolamide-Timolol* (Cosopt*) 2%-0.5% Soln, 1 DROP BOTH EYES BID, BOTTLE 12/18/15 Brimonidine Tartrate* (Brimonidine Tartrate*) 0.15%-10ML Drop Opht, 1 DROP BOTH EYES BID, #1 EA 12/18/15 Aripiprazole* (Abilify*) 10 Mg Tablet, 10 MG PO DAILY, #30 TAB 09/03/15 Clopidogrel Bisulfate* (Clopidogrel Bisulfate*) 75 Mg Tablet, 75 MG PO DAILY, TAB 11/28/14 Sertraline Hcl* (Zoloft*) 50 Mg Tablet, 50 MG PO DAILY, TAB 07/05/14 Atorvastatin* (Atorvastatin*) 40 Mg Tablet, 40 MG PO HS, TAB 05/07/14 Omeprazole* (Omeprazole*) 20 Mg Capsule.dr, 20 MG PO BID 09/28/12 Primary Care Provider Ari Alexander MD Pending Labs Laboratory Tests Test 08/19/16 17:24 08/19/16 20:52 08/20/16 07:47 08/20/16 11:42 Bedside Glucose 76mg/dL (70-220) 127mg/dL (70-220) 77mg/dL (70-220) 104mg/dL (70-220) BRISA PURVIS August 20, 2016 13:34
--- NOTE | 2016-08-20 21:04 | CONS ---
Date/Time of Note Date/Time of Note DATE: 08/20/16 TIME: 21:01 Assessment/Plan Assessment/Plan Problems: (1) DM w/o complication type II, uncontrolled Status: Chronic Comment: Good glycemic control. Lower doses of lantus today. Hopefully will result in less risk of hypos. On d/c, pt. should resume home doses of insulin as we are already aware that these insulin doses do not work for her on her home diet. Consultation Date/Type/Reason Admit Date/Time August 06, 2016 at 19:45 Initial Consult Date 08/08/16 Type of Consultation: Endocrinology Reason for Consultation [id number] Referring Provider: MADHU CAZARES 24 HR Interval Summary Constitutional: no complaints (wants to home) Detailed Summary Respiratory: no complaints Cardiovascular: no complaints Gastrointestinal: no complaints Genitourinary: no complaints Musculoskeletal: no complaints Neurologic: no complaints Exam/Review of Systems Vital Signs Vitals VS - Last 72 Hours, by Label Date Time Temp Pulse Resp B/P Pulse Ox O2 Delivery O2 Flow Rate FiO2 08/20/16 12:24 62 08/20/16 11:27 98.0 61 18 103/63 92 08/20/16 10:40 59 08/20/16 08:10 Nasal Cannula 2.0 08/20/16 07:25 97.9 60 18 103/59 97 08/20/16 04:16 54 08/20/16 04:00 98.0 58 20 119/59 100 08/20/16 02:30 61 99 40 08/20/16 00:35 76 98 40 08/20/16 00:01 57 08/20/16 00:00 98.0 58 20 101/58 99 08/19/16 21:57 68 98 30 08/19/16 21:50 3.0 08/19/16 20:18 61 08/19/16 20:00 97.9 64 20 135/63 99 08/19/16 19:59 Nasal Cannula 2.0 08/19/16 16:13 61 08/19/16 12:09 59 08/19/16 11:23 97.8 60 18 114/57 99 08/19/16 08:44 59 08/19/16 08:20 Nasal Cannula 2.0 08/19/16 08:04 3.0 08/19/16 07:37 97.9 94 18 134/63 100 08/19/16 05:16 3.0 08/19/16 04:28 63 08/19/16 04:00 97.6 64 15 124/55 99 08/19/16 03:06 77 97 30 08/19/16 01:44 71 98 30 08/19/16 00:38 62 08/19/16 00:00 97.5 62 15 124/60 97 08/18/16 23:00 Nasal Cannula 2.0 08/18/16 22:58 68 97 30 08/18/16 21:20 3.0 08/18/16 21:14 75 96 30 08/18/16 20:12 61 08/18/16 19:47 97.5 60 15 110/53 100 08/18/16 16:27 60 08/18/16 16:11 97.7 68 18 125/63 96 08/18/16 12:16 64 08/18/16 11:50 97.6 60 18 104/53 98 08/18/16 08:33 60 08/18/16 08:30 Nasal Cannula 2.0 08/18/16 08:26 3.0 08/18/16 07:42 97.9 62 18 129/55 99 08/18/16 05:30 68 97 30 08/18/16 04:16 60 08/18/16 04:16 97.8 68 21 131/72 100 08/18/16 03:01 68 97 30 08/18/16 01:31 97 30 08/18/16 00:30 65 08/18/16 00:17 97.5 57 16 121/58 98 08/18/16 00:00 Nasal Cannula 2.0 08/17/16 23:32 67 97 30 08/17/16 21:42 67 97 30 Vital Signs Date Time Temp Pulse Resp B/P Pulse Ox O2 Delivery O2 Flow Rate FiO2 08/20/16 12:24 62 08/20/16 11:27 98.0 18 103/63 92 08/20/16 08:10 Nasal Cannula 2.0 08/20/16 02:30 40 Intake and Output 08/19/16 08/19/16 08/20/16 15:00 23:00 07:00 Intake Total 720 ml 240 ml Balance 720 ml 240 ml Exam Constitutional: alert, obese, oriented Psych: nl mood/affect, no complaints Respiratory: clear to auscultation, normal air movement Cardiovascular: nl pulses, regular rate and rhythm, No edema, No murmurs/extra sounds, No rub Gastrointestinal: bowel sounds, nl liver, spleen, non-tender, soft, No mass, No rebound or guarding Musculoskeletal: nl extremities to inspection Extremities: normal pulses, No clubbing, No cyanosis, No edema Neurological: [employer] II-XII intact, nl mental status, nl speech, nl strength Additional Comments Bedside Glucose - 72 Hours Test 08/17/16 21:12 08/17/16 23:25 08/18/16 01:22 08/18/16 08:16 Bedside Glucose 66mg/dL (70-220) L 123mg/dL (70-220) 125mg/dL (70-220) 105mg/dL (70-220) Test 08/18/16 11:45 08/18/16 13:16 08/18/16 17:20 08/18/16 20:26 Bedside Glucose 112mg/dL (70-220) 81mg/dL (70-220) 112mg/dL (70-220) 81mg/dL (70-220) Test 08/19/16 07:26 08/19/16 11:54 08/19/16 12:16 08/19/16 17:24 Bedside Glucose 96mg/dL (70-220) 55mg/dL (70-220) L 98mg/dL (70-220) 76mg/dL (70-220) Test 08/19/16 20:52 08/20/16 07:47 08/20/16 11:42 Bedside Glucose 127mg/dL (70-220) 77mg/dL (70-220) 104mg/dL (70-220) Results Result Diagram: 08/19/16 0740 08/19/16 0740 Results 24 hrs Laboratory Tests Test 08/20/16 07:47 08/20/16 11:42 Bedside Glucose 77 104 TONY KELLY MD August 20, 2016 21:04
== END 2016-08-20 13:20 | disposition home or self-care (01) | DRG 291 ==
LOC: E/R 15:43 → MS4 19:04
PROVIDERS: ADMIT Internal Medicine; ATTEND Internal Medicine
PROC: 5A09457 Assistance with Respiratory Ventilation, 24-96 Consecutive Hours, Continuous Positive Airway Pressure (ICD-10-PCS; principal; 2016-08-13)
DX: I13.0 Hypertensive heart and chronic kidney disease with heart failure and stage 1 through stage 4 chronic kidney disease, or unspecified chronic kidney disease (principal); I50.33 Acute on chronic diastolic (congestive) heart failure; J96.12 Chronic respiratory failure with hypercapnia; E11.22 Type 2 diabetes mellitus with diabetic chronic kidney disease; E11.65 Type 2 diabetes mellitus with hyperglycemia; Z68.43 Body mass index [BMI] 50.0-59.9, adult; E66.2 Morbid (severe) obesity with alveolar hypoventilation; E87.5 Hyperkalemia; J44.9 Chronic obstructive pulmonary disease, unspecified; I16.0 Hypertensive urgency; G47.33 Obstructive sleep apnea (adult) (pediatric); E78.5 Hyperlipidemia, unspecified; H40.9 Unspecified glaucoma; N18.2 Chronic kidney disease, stage 2 (mild); R07.89 Other chest pain; F32.9 Major depressive disorder, single episode, unspecified; I25.10 Atherosclerotic heart disease of native coronary artery without angina pectoris; Z79.4 Long term (current) use of insulin; Z95.5 Presence of coronary angioplasty implant and graft
CPT/HCPCS: 36415; 36600; 71010; 78452; 80048; 80053; 80061; 82550; 82553; 82803; 82962; 83690; 83880; 84484; 85025; 87086; 93005; 93017; 93970; 94644; 94660; 96374; 96375; 97110; 97116; 97162; 97530; J1940; A9500; A9505; J0400; J1650; J1815; J2270; J2785

== ENCOUNTER 2016-11-19 11:28 | Emergency (ER) | payer MEDICARE, OTHER ==
[~2016-11-19] VITALS: Ht 152.4 cm; Wt 130.0 kg
[~2016-11-19 11:28] MED LIST changes: +ALBU18HF INHALATION; -ALBU8.5H3 INH; -BENA20TA48 PO; +FLUT16SP17 NASAL; -FURO-110 PO; +FURO40TA4 PO; -INSU500V SQ; +LANT3I SC; +NOVO3I SC; +NOVO7030 SC
[2016-11-19 11:33] VITALS: Ht 152.4 cm; Wt 130.0 kg
[2016-11-19] MEDS ORDERED: ALBUTEROL 0.083% (NEB) 2.5 MG/3 ML AMP INH STA ×2 (11:42→14:17)
[2016-11-19] MEDS ORDERED: IPRATROPIUM (NEB) 0.5 MG/2.5 ML AMP INH STA (11:42)
[2016-11-19] MEDS ORDERED: METHYLPREDNISOLONE 125 MG INJ IV STA (11:42)
--- NOTE | 2016-11-19 12:01 | ERA ---
ER Documentation Chief Complaint Date/Time DATE: 11/19/16 TIME: 11:53 Chief Complaint SOB X 2 DAYS HPI This is a 76-year-old female with a past medical history of morbid obesity, hypertension, diabetes, hyperlipidemia, coronary artery disease, previous reported "mini" heart attack status post a recent angioplasty at an outside hospital, on clopidogrel, congestive heart failure, COPD who is presenting with worsening shortness of breath over the last 3 days. The patient reports increased shortness of breath with exertion, and it became too much for her today while she was rushing to get to confucianist. She lives alone, and she has trouble moving around and taking care of herself. She reportedly does have oxygen at home, but she was only trained how to do it once and does not know how to use it. She has been in and out of the hospital multiple times recently for worsening shortness of breath. The patient denies feeling sick otherwise. She has not had any fever or chills. She does not have a headache or vision changes. She has not had any nausea or vomiting. She does endorse chronic back pain, but this is unchanged and does not change with breathing. The patient denies any chest pain at all, but she does endorse some chest tightness and wheezing. She also endorses epigastric discomfort, but this is also chronic for her. She endorses that this may be related to her weight. She endorses heaviness and swelling in her legs as well that has also been ongoing. She does not have any focal deficits. She has no weakness or numbness or tingling to the face or extremities. ROS All systems reviewed and are negative except as per history of present illness. Medications Home Meds Active Scripts Potassium Chloride* (Potassium Chloride*) 20 Meq Tablet.er, 20 MEQ PO DAILY, # 30 TAB.SA Prov:ENRRIQUE AGUILAR 03/14/16 Reported Medications Insulin Glargine,Hum.rec.anlog (Jennie Mcintyre) 300 Unit/1 Ml Insuln.pen, 10 UNIT SQ AC BREAKFAST 08/07/16 Insulin Isophan/Regular (Humulin 70/30) 100 Units/Ml Susp, 30 UNIT SC AC BREAKFAST, EA 08/07/16 Pramlintide (Symlinpen 120) 2,700 Mcg/2.7 Ml Pen.injctr, 120 MCG SC TID 08/07/16 Furosemide* (Furosemide*) 40 Mg Tablet, 40 MG PO BID, TAB 08/06/16 Insulin Glargine* (Lantus*) 100 Unit/Ml Soln, 10 UNIT SC BID, #1 VIAL 08/06/16 Insulin Aspart* (Novolog Insulin Pen*) 100 Unit/Ml Soln, 0 SC WITH MEALS, EA 32 UNITS-QAM, 12 UNITS-NOON, 32 UNITS-QPM 08/06/16 Fluticasone Propionate* (Fluticasone Propionate* Nasal) 50 Mcg/[place] - 16 Gm [place].susp, 1 SPRAY NASAL DAILY, #1 BOTTLE TO EACH NOSTRIL 08/06/16 Albuterol Sulfate* (Ventolin HFA*) 18 Gm Hfa.aer.ad, 2 PUFF INHALATION Q4H, #1 INHALER 08/06/16 Acetaminophen (PAIN & FEVER) 500 Mg Tablet, 1000 MG PO BID, TAB 03/06/16 Pramlintide (Symlinpen 120) 2,700 Mcg/2.7 Ml Pen.injctr, 2700 MCG SC TID BEFORE MEALS 03/06/16 Empagliflozin/Linagliptin (Glyxambi 25 mg-5 mg Tablet) 1 Each Tablet, 1 EACH PO QAM, TAB 03/06/16 Metoprolol Succinate* (Toprol XL*) 100 Mg Tab.sr.24h, 100 MG PO DAILY, #30 TAB 03/06/16 Isosorbide Mononitrate* (Isosorbide Mononitrate*) 60 Mg Tab.er.24h, 60 MG PO DAILY, TAB 03/06/16 Dorzolamide-Timolol* (Cosopt*) 2%-0.5% Soln, 1 DROP BOTH EYES BID, BOTTLE 12/18/15 Brimonidine Tartrate* (Brimonidine Tartrate*) 0.15%-10ML Drop Opht, 1 DROP BOTH EYES BID, #1 EA 12/18/15 Aripiprazole* (Abilify*) 10 Mg Tablet, 10 MG PO DAILY, #30 TAB 09/03/15 Clopidogrel Bisulfate* (Clopidogrel Bisulfate*) 75 Mg Tablet, 75 MG PO DAILY, TAB 11/28/14 Sertraline Hcl* (Zoloft*) 50 Mg Tablet, 50 MG PO DAILY, TAB 07/05/14 Atorvastatin* (Atorvastatin*) 40 Mg Tablet, 40 MG PO HS, TAB 05/07/14 Omeprazole* (Omeprazole*) 20 Mg Capsule.dr, 20 MG PO BID 09/28/12 Allergies Allergies: Coded Allergies: No Known Drug Allergy (Verified Allergy, Unknown, 11/19/16) PMhx/Soc History of Surgery: Yes (HYSTERECTOMY) Anesthesia Reaction: No Hx Neurological Disorder: Yes (Neuropathy) Hx Respiratory Disorders: Yes (SOB) Hx Cardiac Disorders: Yes (CHF,S/P STENT PLACEMENT) Hx Psychiatric Problems: No Hx Miscellaneous Medical Probl: Yes (CHF, obesity, htn, CAD, hyperlipidemia, renal insuff,diabetic neuropathy) Hx Alcohol Use: No Hx Substance Use: No Hx Tobacco Use: No FmHx Family History: coronary disease, diabetes Physical Exam Vitals Vital Signs Date Time Temp Pulse Resp B/P Pulse Ox O2 Delivery O2 Flow Rate FiO2 11/19/16 15:24 70 20 131/64 94 Room Air 11/19/16 13:40 62 17 115/65 96 Nasal Cannula 2.0 11/19/16 12:26 80 18 96 21 11/19/16 11:45 Nasal Cannula 2 11/19/16 11:45 Nasal Cannula 2.0 11/19/16 11:33 98.1 65 18 174/79 94 Physical Exam Const: [] Head: Atraumatic Eyes: Normal Conjunctiva ENT: Normal External Ears, Nose and Mouth. Neck: Full range of motion..~ No meningismus. Resp: Clear to auscultation bilaterally Cardio: Regular rate and rhythm, no murmurs Abd: Soft, non tender, non distended. Normal bowel sounds Skin: No petechiae or rashes Back: No midline or flank tenderness Ext: No cyanosis, or edema Neur: Awake and alert Psych: Normal Mood and Affect Result Diagram: 11/19/16 1158 11/19/16 1158 Results 24 hrs Laboratory Tests Test 11/19/16 11:58 White Blood Count 9.510^3/ul Red Blood Count 4.4910^6/ul Hemoglobin 12.3g/dl Hematocrit 38.2% Mean Corpuscular Volume 85.1fl Mean Corpuscular Hemoglobin 27.4pg Mean Corpuscular Hemoglobin Concent 32.2g/dl Red Cell Distribution Width 18.9% Platelet Count 06625^3/UL Mean Platelet Volume 9.0fl Neutrophils % 70.0% Lymphocytes % 17.8% Monocytes % 7.1% Eosinophils % 3.6% Basophils % 0.5% Nucleated Red Blood Cells % 0.0/100WBC Neutrophils # (Manual) 6.710^3/ul Lymphocytes # 1.710^3/ul Monocytes # 0.710^3/ul Eosinophils # 0.310^3/ul Basophils # 0.110^3/ul Nucleated Red Blood Cells # 0.010^3/ul Prothrombin Time 12.1Sec Prothrombin Time Ratio 0.9 INR International Normalized Ratio 0.90 Activated Partial Thromboplast Time 31.0Sec Sodium Level 138mmol/L Potassium Level 3.6mmol/L Chloride Level 94mmol/L Carbon Dioxide Level 32mmol/L Anion Gap 16 Blood Urea Nitrogen 23mg/dl Creatinine 1.09mg/dl Glucose Level 140mg/dl Calcium Level 9.3mg/dl Total Bilirubin 0.1mg/dl Direct Bilirubin 0.00mg/dl Indirect Bilirubin 0.1mg/dl Aspartate Amino Transf (AST/SGOT) 29IU/L Alanine Aminotransferase (ALT/SGPT) 41IU/L Alkaline Phosphatase 111IU/L Troponin I < 0.012ng/ml B-Type Natriuretic Peptide 887PG/ML Total Protein 8.1g/dl Albumin 3.7g/dl Globulin 4.40g/dl Albumin/Globulin Ratio 0.84 Current Medications Medications (Trade) Dose Ordered Sig/Errol Route PRN Reason Start Time Stop Time Status Last Admin Dose Admin Albuterol (Proventil 0.083% (Neb)) 7.5 mg ONCE STAT INH 11/19/16 11:42 11/19/16 11:53 DC 11/19/16 12:25 Ipratropium [place] (Atrovent 0.02% (Neb)) 1.5 mg ONCE STAT INH 11/19/16 11:42 11/19/16 11:53 DC 11/19/16 12:25 Methylprednisolone Sodium Succinate (Solu-Medrol) 125 mg ONCE STAT IV 11/19/16 11:42 11/19/16 11:53 DC 11/19/16 12:14 Albuterol (Proventil 0.083% (Neb)) 7.5 mg ONCE STAT INH 11/19/16 14:17 8/27/17 14:18 DC 11/19/16 14:37 Procedures/MDM The patient's presentation warrants a cardiopulmonary workup. The patient's blood work was obtained and reviewed. The patient's CBC is unremarkable. The patient does not have a leukocytosis or left shift. The patient is not anemic. The patient's BMP demonstrates Metabolic alkalosis which is likely compensatory to her respiratory acidosis associated with her respiratory pathology. The patient does have an elevated BUN and creatinine, but this is actually improved compared to previous studies. The patient's troponin is negative. The patient's BNP is elevated, but it is less than 1000. The patient's chest xray is as follows: PROCEDURE: Chest radiograph CLINICAL INDICATION: Shortness of breath. COMPARISON: Radiograph 03/27/2016. TECHNIQUE: Single frontal chest radiograph. FINDINGS: The lungs are clear. No pleural effusion or focal parenchymal opacity. The cardiomediastinal silhouette is enlarged, markedly increased from 03/27/2016. No suspicious bone lesion. IMPRESSION: Increased size of cardiomediastinal shadow which may reflect interval increased enlargement of the heart or a pericardial effusion. Physician Efe Date Time Electronically viewed and signed by Physician Efe on 11/19/2016 13: 06 EKG read by me: Rate/Rhythm: Regular rate and rhythm at a rate of 60 Intervals: Normal [place]: Normal TWI in inferior and lateral leads Impression: Nonspecific repolarization changes but no evidence of ischemia or arrhythmia. Upon evaluation of an EKG from July of this year, she had nonspecific changes in these leads at that time as well. A bedside ultrasound was performed by myself that did not demonstrate a pericardial effusion. The patient has been in the hospital multiple times for heart failure over the last several months. Unfortunately, these evaluations have not been performed here. I do suspect that heart failure is a component of her respiratory issues, especially on exertion. I do not believe that she is going through an acute coronary syndrome at this time. I do not see significant vascular congestion concerning for pulmonary edema presently.The patient has been dealing with lower extremity edema, but it is currently nonpitting. This may be worked up as an outpatient. There is no evidence of cardiac tamponade on her EKG. The patient was given nebulized treatments and steroids in the emergency department. She does have a history of COPD, and I feel that this is certainly attributed today. After she received these treatments, I did hear diffuse wheezing. I believe that she was quite tight prior to this. We will provide her another round of therapy. After her second treatment, the wheezing had resolved. The patient is morbidly obese, and obesity hypoventilation syndrome is likely also associated. That said, the patient's vital signs have remained stable in the emergency department. When off oxygen, she was not hypoxic. The patient will be treated for COPD. The patient does have lower extremity edema, but it is nonpitting. She will be instructed to maintain her home medications. She has an appointment with her primary doctor in 2 days for follow-up. She will be given precautions with which to return to the emergency department. Departure Diagnosis: Primary Impression: Shortness of breath Additional Impression: Congestive heart failure (CHF) Qualified Code: I50.9 - Acute on chronic congestive heart failure, unspecified congestive heart failure type Condition: Fair Patient Instructions: Diagnosis of COPD, Heart Failure, What Is COPD? Additional Instructions: You were given medicine in the emergency department which improved your COPD symptoms. At discharge, you really able to breathe much more freely. Please take your prescriptions as prescribed. Please return to the emergency department for any concerns. Please follow-up with your doctor in 1-2 days. Thank you for for coming to [facility] for your care today. Please ask your nurse or provider if you have questions about your care today and do not leave until all your questions have been answered. Please use any medications given as directed and follow-up with your doctor (or the doctor you were referred to) in the next 2-3 days. If you do not have a primary care doctor you may follow up at the [facility] (listed below). You may also use motrin and tylenol as needed for fever and/or pain unless instructed otherwise by your provider or nurse. Indications for more urgent follow-up have been discussed, but you may return to the Emergency Department at ANY time for any worrisome or worsening symptoms. If you have abdominal pain, please know that no test or exam you received is perfect and you should follow up within 8 hours for continued pain. If you had any imaging studies today, such as an X-Ray or CT Scan, these studies will be reviewed later by a radiologist. You will be called if there are important findings that were not identified today, so make sure the contact information you provided at registration is correct. If you received any narcotic pain control medicine today, such as Vicodin, Morphine or Dilaudid, your coordination and judgment may be affected for a number of hours. Please do not drive or operate heavy machinery, and you may want someone to assist you at home. If you were given a prescription for narcotic medication, be aware that it is very addictive- use sparingly and only if necessary. PAT POSADAS MD Nov 19, 2016 12:01
[2016-11-19 12:15] LABS: BASOPHIL # 0.1 10^3/ul (0.0-0.1); BASOPHILS % 0.5 % (0.0-2.0); EOSINOPHILS # 0.3 10^3/ul (0.0-0.5); EOSINOPHILS % 3.6 % (0.0-7.0); HEMATOCRIT 38.2 % (37.0-47.0); HEMOGLOBIN 12.3 g/dl (12.0-16.0); LYMPHOCYTES # 1.7 10^3/ul (0.8-2.9); LYMPHOCYTES % 17.8 % (15.0-51.0); MEAN CORPUSCULAR HEMOGLOBIN 27.4 pg (29.0-33.0); MEAN CORPUSCULAR HGB CONC 32.2 g/dl (32.0-37.0); MEAN CORPUSCULAR VOLUME 85.1 fl (82.0-101.0); MONOCYTE # 0.7 10^3/ul (0.3-0.9); MONOCYTES % 7.1 % (0.0-11.0); PLATELET COUNT 303 10^3/UL (140-415); RED BLOOD COUNT 4.49 10^6/ul (4.20-5.40); RED CELL DISTRIBUTION WIDTH 18.9 % (11.5-14.5); WHITE BLOOD COUNT 9.5 10^3/ul (4.8-10.8)
[2016-11-19 12:36] LABS: ALANINE AMINOTRANSFERASE 41 IU/L (13-69); ALBUMIN 3.7 g/dl (3.3-4.9); ALBUMIN/GLOBULIN RATIO 0.84; ALKALINE PHOSPHATASE 111 IU/L (42-121); ANION GAP 16 (8-16); ASPARTATE AMINO TRANSFERASE 29 IU/L (15-46); BILIRUBIN,INDIRECT 0.1 mg/dl (0-1.1); BILIRUBIN,TOTAL 0.1 mg/dl (0.2-1.3); BLOOD UREA NITROGEN 23 mg/dl (7-20); CALCIUM 9.3 mg/dl (8.4-10.2); CARBON DIOXIDE 32 mmol/L (21-31); CHLORIDE 94 mmol/L (97-110); CREATININE 1.09 mg/dl (0.44-1.00); GLUCOSE 140 mg/dl (70-220); INR 0.9; POTASSIUM 3.6 mmol/L (3.5-5.1); PROTIME 12.1 Sec (12.2-14.2); PT RATIO 0.9; SODIUM 138 mmol/L (135-144); TOTAL PROTEIN 8.1 g/dl (6.1-8.1)
[2016-11-19 12:50] LABS: TROPONIN-I < 0.012 ng/ml (0.00-0.12)
--- NOTE | 2016-11-19 13:06 | RADRPT ---
PROCEDURE: Chest radiograph CLINICAL INDICATION: Shortness of breath. COMPARISON: Radiograph 03/27/2016. TECHNIQUE: Single frontal chest radiograph. FINDINGS: The lungs are clear. No pleural effusion or focal parenchymal opacity. The cardiomediastinal silhouette is enlarged, markedly increased from 03/27/2016. No suspicious bone lesion. IMPRESSION: Increased size of cardiomediastinal shadow which may reflect interval increased enlargement of the h eart or a pericardial effusion. RPTAT: HLG Physician Efe Date Time Electronically viewed and signed by Denise Camargo Physician on 11/19/2016 13:06 LG/
[2016-11-19] MEDS ORDERED: PRED20TA PO (15:59)
[2016-11-19 16:40] VITALS: BP 129/51; PULSE 76; RESP 22; TEMP 98.4
== END 2016-11-19 16:41 | disposition home or self-care (01) ==
LOC: E/R 11:28
DX: R06.02 Shortness of breath (principal); I50.9 Heart failure, unspecified; I10 Essential (primary) hypertension; E11.9 Type 2 diabetes mellitus without complications; E66.01 Morbid (severe) obesity due to excess calories; Z68.43 Body mass index [BMI] 50.0-59.9, adult; Z79.4 Long term (current) use of insulin; Z95.5 Presence of coronary angioplasty implant and graft; Z79.84 Long term (current) use of oral hypoglycemic drugs
CPT/HCPCS: 36415; 71010; 80053; 83880; 84484; 85025; 85610; 85730; 93005; 94640; 94664; 96374; 99285; J2930

== ENCOUNTER 2017-01-06 10:39 | Inpatient (IN) | payer MEDICARE, OTHER ==
[~2017-01-06] VITALS: Ht 157.5 cm; Wt 140.0 kg
[~2017-01-06 10:39] MED LIST changes: +METO-336 PO; -METO100T13 PO; +PRED20TA PO
[2017-01-06] MEDS ORDERED: ASPIRIN 81 MG TAB PO STA (11:34)
[2017-01-06 11:52] LABS: BASOPHIL # 0.1 10^3/ul (0.0-0.1); BASOPHILS % 0.6 % (0.0-2.0); EOSINOPHILS # 0.3 10^3/ul (0.0-0.5); EOSINOPHILS % 2.7 % (0.0-7.0); HEMATOCRIT 41.1 % (37.0-47.0); LYMPHOCYTES # 1.9 10^3/ul (0.8-2.9); LYMPHOCYTES % 17.6 % (15.0-51.0); MEAN CORPUSCULAR HEMOGLOBIN 28.3 pg (29.0-33.0); MEAN CORPUSCULAR HGB CONC 31.6 g/dl (32.0-37.0); MEAN CORPUSCULAR VOLUME 89.5 fl (82.0-101.0); MEAN PLATELET VOLUME 9.6 fl (7.4-10.4); MONOCYTE # 0.6 10^3/ul (0.3-0.9); NEUTROPHIL # 7.6 10^3/ul (1.6-7.5); NEUTROPHILS % 72.2 % (39.0-77.0); PLATELET COUNT 341 10^3/UL (140-415); RED BLOOD COUNT 4.59 10^6/ul (4.20-5.40); RED CELL DISTRIBUTION WIDTH 15.9 % (11.5-14.5); WHITE BLOOD COUNT 10.6 10^3/ul (4.8-10.8)
[2017-01-06] MEDS ORDERED: NITROGLYCERIN (SL) 0.4 MG TAB SL ONE (12:00)
[2017-01-06] MEDS ORDERED: PARO10TA76 PO (12:20)
[2017-01-06] MEDS ORDERED: INSU500I SQ (12:20)
[2017-01-06] MEDS ORDERED: TRAZ50TA18 PO (12:20)
[2017-01-06] MEDS ORDERED: PANT40TA4 PO (12:21)
[2017-01-06] MEDS ORDERED: BUME1TAB18 PO (12:21)
[2017-01-06] MEDS ORDERED: EMPA1TAB PO (12:23)
[2017-01-06] MEDS ORDERED: CLON0.5T4 PO (12:23)
--- NOTE | 2017-01-06 12:29 | RADRPT ---
PROCEDURE: XR Chest. CLINICAL INDICATION: Shortness of breath TECHNIQUE: An AP view of the chest was obtained. COMPARISON: Chest x-ray dated 11/19/2016 FINDINGS: There is prominence of the interstitial markings. No pleural effusion or pneumothorax is seen. Th e cardiomediastinal silhouette is moderately enlarged. Calcifications are seen within the aortic arc h. The osseous structures demonstrate senescent changes. IMPRESSION: 1. Mild prominence of the interstitial markings, may reflect mild underlying interstitial edema or chronic lung changes. No significant interval change. 2. Moderate cardiomegaly and aortic atherosclerosis. RPTAT: HH .Meredith Santana MD, MD Date Time Electronically viewed and signed by .Meredith Santana MD, on 01/06/2017 12:28 .G/
[2017-01-06 12:30] LABS: ALANINE AMINOTRANSFERASE 54 IU/L (13-69); ALBUMIN 4.1 g/dl (3.3-4.9); ALBUMIN/GLOBULIN RATIO 1.13; ALKALINE PHOSPHATASE 117 IU/L (42-121); ANION GAP 16 (8-16); ASPARTATE AMINO TRANSFERASE 40 IU/L (15-46); BILIRUBIN,INDIRECT 0.2 mg/dl (0-1.1); BILIRUBIN,TOTAL 0.2 mg/dl (0.2-1.3); BLOOD UREA NITROGEN 21 mg/dl (7-20); CALCIUM 9.1 mg/dl (8.4-10.2); CARBON DIOXIDE 29 mmol/L (21-31); CHLORIDE 102 mmol/L (97-110); CREATININE 1.09 mg/dl (0.44-1.00); GLUCOSE 159 mg/dl (70-220); POTASSIUM 4.1 mmol/L (3.5-5.1); SODIUM 143 mmol/L (135-144); TOTAL PROTEIN 7.7 g/dl (6.1-8.1)
[2017-01-06 12:31] LABS: INR 0.94; PROTIME 12.6 Sec (12.2-14.2)
[2017-01-06 12:41] LABS: B-TYPE NATRIURETIC PEPTIDE 730 PG/ML (0-125)
[2017-01-06 12:42] LABS: TROPONIN-I < 0.012 ng/ml (0.00-0.12)
[2017-01-06 12:50] LABS: PARTIAL THROMBOPLASTIN TIME 29.1 Sec (25.0-35.0)
[2017-01-06] MEDS ORDERED: ACETAMINOPHEN 325 MG TAB PO PRN ×2 (13:30→16:00)
[2017-01-06] MEDS ORDERED: ONDANSETRON 4 MG INJ IV PRN ×2 (13:30→16:00)
[2017-01-06] MEDS ORDERED: FUROSEMIDE 40 MG INJ IV ONE (13:30)
--- NOTE | 2017-01-06 13:37 | ERA ---
ER Documentation Chief Complaint Date/Time DATE: 01/06/17 TIME: 13:27 Chief Complaint bib ra from home c/o dizziness , sob , abd pain HPI 76-year-old female with a history of hypertension, diabetes, diastolic CHF, presented to the ER by ambulance with complaints of worsening shortness of breath, epigastric pain, and dizziness. Per her daughter, her symptoms are chronic but have been worsening in the past 4-5 days. She recently saw her primary care doctor, who increased her dose of diuretic. However this is not helping significantly with her symptoms. She denies any chest pain, fever, chills, cough, nausea, vomiting. ROS All systems reviewed and are negative except as per history of present illness. Medications Home Meds Active Scripts Potassium Chloride* (Potassium Chloride*) 20 Meq Tablet.er, 20 MEQ PO DAILY, # 30 TAB.SA Prov:JOYA AGUILARBIR 03/14/16 Reported Medications Empagliflozin/Linagliptin (Glyxambi 25 mg-5 mg Tablet) 1 Each Tablet, 1 EACH PO QAM, TAB 01/06/17 Clonazepam* (Clonazepam*) 0.5 Mg Tablet, 0.25 MG PO NEEDED Y for ANXIETY, TAB 01/06/17 Pantoprazole* (Pantoprazole*) 40 Mg Tablet.dr, 40 MG PO DAILY, TAB 01/06/17 Bumetanide* (Bumetanide*) 1 Mg Tablet, 1 MG PO BID, TAB 01/06/17 Trazodone Hcl* (Trazodone Hcl*) 50 Mg Tablet, 50 MG PO QHS, #30 TAB 01/06/17 Paroxetine Hcl* (Paroxetine*) 10 Mg Tablet, 10 MG PO DAILY, TAB 01/06/17 Insulin Regular, Human (Humulin R U-500 Kwikpen) 500 Unit/1 Ml Insuln.pen, 0 SQ TID TAKE 33 UNIT-QAM AND QNOON, AND 12 UNIT-QPM 01/06/17 Insulin Glargine,Hum.rec.anlog (Jennie Mcintyre) 300 Unit/1 Ml Insuln.pen, 15 UNIT SQ AC BREAKFAST 08/07/16 Pramlintide (Symlinpen 120) 2,700 Mcg/2.7 Ml Pen.injctr, 120 MCG SC TID 08/07/16 Albuterol Sulfate* (Ventolin HFA*) 18 Gm Hfa.aer.ad, 2 PUFF INHALATION Q4H, #1 INHALER 08/06/16 Acetaminophen (PAIN & FEVER) 500 Mg Tablet, 1000 MG PO Q6H, TAB 03/06/16 Metoprolol Succinate* (Toprol XL*) 100 Mg Tab.sr.24h, 100 MG PO DAILY, #30 TAB 03/06/16 Isosorbide Mononitrate* (Isosorbide Mononitrate*) 60 Mg Tab.er.24h, 60 MG PO DAILY, TAB 03/06/16 Clopidogrel Bisulfate* (Clopidogrel Bisulfate*) 75 Mg Tablet, 75 MG PO DAILY, TAB 11/28/14 Atorvastatin* (Atorvastatin*) 40 Mg Tablet, 40 MG PO HS, TAB 05/07/14 Discontinued Reported Medications Insulin Isophan/Regular (Humulin 70/30) 100 Units/Ml Susp, 30 UNIT SC AC BREAKFAST, EA 08/07/16 Furosemide* (Furosemide*) 40 Mg Tablet, 40 MG PO BID, TAB 08/06/16 Insulin Glargine* (Lantus*) 100 Unit/Ml Soln, 10 UNIT SC BID, #1 VIAL 08/06/16 Insulin Aspart* (Novolog Insulin Pen*) 100 Unit/Ml Soln, 0 SC WITH MEALS, EA 32 UNITS-QAM, 12 UNITS-NOON, 32 UNITS-QPM 08/06/16 Fluticasone Propionate* (Fluticasone Propionate* Nasal) 50 Mcg/[place] - 16 Gm [place].susp, 1 SPRAY NASAL DAILY, #1 BOTTLE TO EACH NOSTRIL 08/06/16 Pramlintide (Symlinpen 120) 2,700 Mcg/2.7 Ml Pen.injctr, 2700 MCG SC TID BEFORE MEALS 03/06/16 Empagliflozin/Linagliptin (Glyxambi 25 mg-5 mg Tablet) 1 Each Tablet, 1 EACH PO QAM, TAB 03/06/16 Dorzolamide-Timolol* (Cosopt*) 2%-0.5% Soln, 1 DROP BOTH EYES BID, BOTTLE 12/18/15 Brimonidine Tartrate* (Brimonidine Tartrate*) 0.15%-10ML Drop Opht, 1 DROP BOTH EYES BID, #1 EA 12/18/15 Aripiprazole* (Abilify*) 10 Mg Tablet, 10 MG PO DAILY, #30 TAB 09/03/15 Sertraline Hcl* (Zoloft*) 50 Mg Tablet, 50 MG PO DAILY, TAB 07/05/14 Omeprazole* (Omeprazole*) 20 Mg Capsule.dr, 20 MG PO BID 09/28/12 Discontinued Scripts Prednisone* (Prednisone*) 20 Mg Tab, 40 MG PO DAILY for 4 Days, TAB Prov:PAT POSADAS MD 11/19/16 Allergies Allergies: Coded Allergies: No Known Drug Allergy (Verified Allergy, Unknown, 01/06/17) PMhx/Soc History of Surgery: Yes (HYSTERECTOMY) Anesthesia Reaction: No Hx Neurological Disorder: Yes (Neuropathy) Hx Respiratory Disorders: Yes (COPD) Hx Cardiac Disorders: Yes (HTN, HIGH CHOLESTEROL) Hx Psychiatric Problems: No Hx Miscellaneous Medical Probl: Yes (CHF, obesity, htn, CAD, hyperlipidemia, renal insuff,diabetic neuropathy) Hx Alcohol Use: No Hx Substance Use: No Hx Tobacco Use: No Smoking Status: Never smoker FmHx Family History: No coronary disease Physical Exam Vitals Vital Signs Date Time Temp Pulse Resp B/P Pulse Ox O2 Delivery O2 Flow Rate FiO2 01/06/17 13:04 58 18 139/100 100 Nasal Cannula 2.0 01/06/17 12:00 58 18 124/58 100 Nasal Cannula 2.0 01/06/17 10:46 98.1 76 20 156/90 95 01/06/17 10:45 Nasal Cannula 2 Physical Exam Const: Sitting up in bed, appears uncomfortable with shortness of breath, speaking in short sentences, obese Head: Atraumatic Eyes: Normal Conjunctiva ENT: Normal External Ears, Nose and Mouth. Neck: Full range of motion..~ No meningismus. Unable to assess JVD secondary to body habitus Resp: Tachypneic, diminished breath sounds at the bases , No wheezing or rales Cardio: Regular rate and rhythm,distant heart sounds, no murmurs Abd: Soft, non tender, non distended. Normal bowel sounds Skin: No petechiae or rashes Back: No midline or flank tenderness Ext: No cyanosis, bilateral lower extremity edema, 2+ pitting, equal bilaterally Neur: Awake and alert Psych: Normal Mood and Affect Result Diagram: 01/06/17 1050 01/06/17 1050 Results 24 hrs Laboratory Tests Test 01/06/17 10:50 White Blood Count 10.610^3/ul Red Blood Count 4.5910^6/ul Hemoglobin 13.0g/dl Hematocrit 41.1% Mean Corpuscular Volume 89.5fl Mean Corpuscular Hemoglobin 28.3pg Mean Corpuscular Hemoglobin Concent 31.6g/dl Red Cell Distribution Width 15.9% Platelet Count 91731^3/UL Mean Platelet Volume 9.6fl Neutrophils % 72.2% Lymphocytes % 17.6% Monocytes % 6.0% Eosinophils % 2.7% Basophils % 0.6% Nucleated Red Blood Cells % 0.0/100WBC Neutrophils # 7.610^3/ul Lymphocytes # 1.910^3/ul Monocytes # 0.610^3/ul Eosinophils # 0.310^3/ul Basophils # 0.110^3/ul Nucleated Red Blood Cells # 0.010^3/ul Prothrombin Time 12.6Sec Prothrombin Time Ratio 1.0 INR International Normalized Ratio 0.94 Activated Partial Thromboplast Time 29.1Sec Sodium Level 143mmol/L Potassium Level 4.1mmol/L Chloride Level 102mmol/L Carbon Dioxide Level 29mmol/L Anion Gap 16 Blood Urea Nitrogen 21mg/dl Creatinine 1.09mg/dl Glucose Level 159mg/dl Calcium Level 9.1mg/dl Total Bilirubin 0.2mg/dl Direct Bilirubin 0.00mg/dl Indirect Bilirubin 0.2mg/dl Aspartate Amino Transf (AST/SGOT) 40IU/L Alanine Aminotransferase (ALT/SGPT) 54IU/L Alkaline Phosphatase 117IU/L Troponin I < 0.012ng/ml B-Type Natriuretic Peptide 730PG/ML Total Protein 7.7g/dl Albumin 4.1g/dl Globulin 3.60g/dl Albumin/Globulin Ratio 1.13 Current Medications Medications (Trade) Dose Ordered Sig/Errol Route PRN Reason Start Time Stop Time Status Last Admin Dose Admin Aspirin (Aspirin) 162 mg ONCE STAT PO 01/06/17 11:34 01/06/17 11:37 DC 01/06/17 11:40 Nitroglycerin (Nitroglycerin (Sl Tab) 0.4 Mg) 1 tab ONCE ONCE SL 01/06/17 12:00 01/06/17 12:01 DC 01/06/17 11:40 Ondansetron HCl (Zofran Inj) 4 mg ER BRIDGE PRN IV NAUSEA AND/OR VOMITING 01/06/17 13:30 01/07/17 13:29 Acetaminophen (Tylenol Tab) 650 mg ER BRIDGE PRN PO MILD PAIN/FEVER 01/06/17 13:30 01/07/17 13:29 Furosemide (Lasix) 80 mg ONCE ONCE IV 01/06/17 13:30 01/06/17 13:31 01/06/17 13:18 Procedures/[facility] EKG: Rate/Rhythm: Normal sinus rhythm QRS, ST, T-waves: Right axis deviation, inferolateral T-wave inversions Impression: No ST elevation [place], no arrhythmia Labs CBC: no anemia or evidence of infection CMP: mild elevation of BUN and Cr BNP elevated Troponin within normal limits Imaging Chest x-ray: IMPRESSION: 1. Mild prominence of the interstitial markings, may reflect mild underlying interstitial edema or chronic lung changes. No significant interval change. 2. Moderate cardiomegaly and aortic atherosclerosis. .Meredith Santana MD, MD Date Time Electronically viewed and signed by .Meredith Santana MD, MD on 01/06/2017 12 :28 [facility] Patient is presenting with worsening shortness of breath and constellation of symptoms concerning for acute decompensated CHF. Vitals were notable for tachypnea with mild hypoxia to 94% on RA. EKG shows no overt evidence of acute ischemia, but there are new T wave inversions in V4 and V5. I cannot rule out ACS at this time, but initial troponin normal. Low suspicion for acute PE given exam and history. Given decline in functional status, she will benefit from admission for further diuresis and cardiac evaluation. A dose of nitro was given here with some symptomatic relief. I also gave her a dose of Lasix 80 mg IV. Accepting Care Team: Current data and ongoing care discussed. Time: Time of admission Primary Provider: Zahida taveras, exhibition carver for Dr. Garza, who admitted patient on last hospitalization Outstanding Data: none Departure Diagnosis: Primary Impression: Acute on chronic diastolic CHF (congestive heart failure) Additional Impression: Dyspnea Qualified Code: R06.02 - Shortness of breath Condition: Serious ELIUD BLOUNT MD Jan 06, 2017 13:37
[2017-01-06 13:48] VITALS: TEMP 98.2
[2017-01-06 14:02] VITALS: PULSE 56
[2017-01-06 16:00] VITALS: PULSE 54
[2017-01-06] MEDS ORDERED: NACL 0.9% 3 ML SYG IV SCH (16:00)
[2017-01-06] MEDS ORDERED: morphine 2 MG INJ IV PRN (16:00)
[2017-01-06] MEDS: FUROSEMIDE 20 MG INJ IV SCH (17:38)
[2017-01-06 18:00] VITALS: Ht 157.5 cm; Wt 140.0 kg
[2017-01-06 20:00] VITALS: BP 124/51; PULSE 56; RESP 18
[2017-01-06] MEDS ORDERED: GLUCAGON 1 MG INJ IM PRN (21:00)
[2017-01-06] MEDS ORDERED: GLUCOSE GEL 15 GRAM TUBE BUCCAL PRN (21:00)
[2017-01-06] MEDS ORDERED: GLUCOSE GEL 15 GRAM TUBE PO PRN ×2 (21:00)
[2017-01-06] MEDS: INSULIN ASPART [NOVOLOG] 3 ML PEN SC SCH (21:00)
[2017-01-06] MEDS ORDERED: DEXTROSE 50% 50 ML SYRINGE IV PRN ×2 (21:00)
[2017-01-07] VITALS (11 sets, daily range): BP systolic 124–163; BP diastolic 53–79; PULSE 57–82; RESP 18–68
[2017-01-07] MEDS: ACCU-CHEK XX SCH (02:00)
[2017-01-07] MEDS: FUROSEMIDE 20 MG INJ IV SCH ×2 (05:26→18:26)
[2017-01-07 06:44] LABS: BASOPHIL # 0.1 10^3/ul (0.0-0.1); BASOPHILS % 0.5 % (0.0-2.0); EOSINOPHILS # 0.3 10^3/ul (0.0-0.5); EOSINOPHILS % 2.6 % (0.0-7.0); HEMATOCRIT 40.8 % (37.0-47.0); HEMOGLOBIN 12.2 g/dl (12.0-16.0); LYMPHOCYTES # 1.7 10^3/ul (0.8-2.9); LYMPHOCYTES % 15.8 % (15.0-51.0); MEAN CORPUSCULAR HEMOGLOBIN 27.7 pg (29.0-33.0); MEAN CORPUSCULAR HGB CONC 29.9 g/dl (32.0-37.0); MEAN CORPUSCULAR VOLUME 92.5 fl (82.0-101.0); MEAN PLATELET VOLUME 9.6 fl (7.4-10.4); MONOCYTE # 0.7 10^3/ul (0.3-0.9); MONOCYTES % 6.7 % (0.0-11.0); NEUTROPHIL # 8.1 10^3/ul (1.6-7.5); NEUTROPHILS % 73.6 % (39.0-77.0); PLATELET COUNT 286 10^3/UL (140-415); RED BLOOD COUNT 4.41 10^6/ul (4.20-5.40); RED CELL DISTRIBUTION WIDTH 16.2 % (11.5-14.5)
[2017-01-07 07:38] LABS: ALBUMIN 3.8 g/dl (3.3-4.9); ALBUMIN/GLOBULIN RATIO 1.08; BILIRUBIN,INDIRECT 0.3 mg/dl (0-1.1); BILIRUBIN,TOTAL 0.3 mg/dl (0.2-1.3); CALCIUM 8.5 mg/dl (8.4-10.2); CREATININE 1.29 mg/dl (0.44-1.00); POTASSIUM 4.2 mmol/L (3.5-5.1); TOTAL PROTEIN 7.3 g/dl (6.1-8.1)
[2017-01-07] MEDS: ASPIRIN 81 MG TAB PO SCH (08:29)
[2017-01-07] MEDS: INSULIN ASPART [NOVOLOG] 3 ML PEN SC SCH ×4 (08:33→21:13)
[2017-01-07] MEDS: ENOXAPARIN 30 MG/0.3 ML SYG SC SCH (08:34)
--- NOTE | 2017-01-07 13:04 | HP ---
Date/Time of Note Date/Time of Note DATE: 01/07/17 TIME: 13:03 Assessment/Plan VTE Prophylaxis VTE Prophylaxis Intervention: other Lines/Catheters IV Catheter Type (from Nrsg): Saline Lock Assessment/Plan Chief Complaint/Hosp Course 1) congestive heart failure - IV lasix - monitor clinically - consider cardiology consult 2) diabetes - monitor blood sugar 3) hypertension - continue home medications Problems: HPI/ROS Admit Date/Time Admit Date/Time Jan 06, 2017 at 13:10 Hx of Present Illness Patient with severe obesity, hypertension, hypocholesterolemia, diabetes, congestive heart failure comes in with increasing shortness of breath. PMH/Family/Social Past Medical History Medical History: congestive heart failure, diabetes, high cholesterol, hypertension Past Surgical History Past Surgical Hx: other Social History Smoking Status: Never smoker Exam/Review of Systems Vital Signs Vitals Vital Signs Date Time Temp Pulse Resp B/P Pulse Ox O2 Delivery O2 Flow Rate FiO2 01/07/17 12:35 69 01/07/17 11:59 98.4 23 124/55 94 01/07/17 04:12 Nasal Cannula 1.5 Intake and Output 01/06/17 01/06/17 01/07/17 15:00 23:00 07:00 Intake Total 0 ml 400 ml Output Total 1200 ml Balance -1200 ml 400 ml Exam Constitutional: well developed Head: atraumatic, normocephalic Neck: supple Respiratory: diminished breath sounds, wheezing Cardiovascular: regular rate and rhythm Gastrointestinal: soft Extremities: normal pulses Labs Result Diagram: 01/07/17 0450 01/07/17 0550 Medications Medications Current Medications Ondansetron HCl (Zofran Inj) 4 mg Q6H PRN IV NAUSEA AND/OR VOMITING; Start at 16:00 Aspirin (Aspirin) 81 mg DAILY PO Last administered on 01/07/17 08:29; Admin Dose 81 MG; Start 01/07/17 at 09:00 Acetaminophen (Tylenol Tab) 650 mg Q6H PRN PO PAIN LEVEL 1-3 OR FEVER; Start 01/06/17 at 16:00 Morphine Sulfate (morphine) 2 mg Q4H PRN IV PAIN LEVEL 7-10; Start 01/06/17 at 16:00 Enoxaparin Sodium (Lovenox) 30 mg DAILY SC Last administered on 10/15/17at 08: 34; Admin Dose 30 MG; Start 01/07/17 at 09:00 Diagnostic Test (Pha) (Accu-Chek) 1 ea 02 XX ; Start 01/07/17 at 02:00 Miscellaneous Information 1 ea NOTE XX ; Start 01/06/17 at 21:00 Glucose (Glutose) 15 gm Q15M PRN PO DECREASED GLUCOSE; Start 01/06/17 at 21:00 Glucose (Glutose) 22.5 gm Q15M PRN PO DECREASED GLUCOSE; Start 01/06/17 at 21: 00 Dextrose (D50w Syringe) 25 ml Q15M PRN IV DECREASED GLUCOSE; Start 01/06/17 at 21:00 Dextrose (D50w Syringe) 50 ml Q15M PRN IV DECREASED GLUCOSE; Start 01/06/17 at 21:00 Glucagon (Glucagen) 1 mg Q15M PRN IM DECREASED GLUCOSE; Start 01/06/17 at 21: 00 Glucose (Glutose) 15 gm Q15M PRN BUCCAL DECREASED GLUCOSE; Start 01/06/17 at 21:00 BRISA PURVIS Jan 07, 2017 13:04
[2017-01-08] VITALS (13 sets, daily range): BP systolic 118–176; BP diastolic 62–81; PULSE 62–75; RESP 18–22
[2017-01-08] MEDS: ACCU-CHEK XX SCH (02:00)
[2017-01-08] MEDS: FUROSEMIDE 20 MG INJ IV SCH ×2 (06:23→17:16)
[2017-01-08] MEDS: ASPIRIN 81 MG TAB PO SCH (08:40)
[2017-01-08] MEDS: LORATADINE 10 MG TAB PO SCH (08:40)
[2017-01-08] MEDS: INSULIN ASPART [NOVOLOG] 3 ML PEN SC SCH ×3 (08:42→17:18)
[2017-01-08] MEDS: ENOXAPARIN 30 MG/0.3 ML SYG SC SCH (08:42)
--- NOTE | 2017-01-08 10:47 | PN ---
Date/Time of Note Date/Time of Note DATE: 01/08/17 TIME: 10:43 Assessment/Plan VTE Prophylaxis VTE Prophylaxis Intervention: SCD's Lines/Catheters IV Catheter Type (from Nrsg): Saline Lock Assessment/Plan Chief Complaint/Hosp Course Patient stated improvement in shortness of breath, comfortable supplemental oxygen, denies chest pain Problems: Assessment/Plan - Diastolic acute on chronic congestive heart failure exacerbation. Continue Lasix. Dr. Cota is following patient. Cardiology consultation. Continue to monitor electrolytes. - Hypertension. - Diabetes mellitus type 2. - Acute on chronic kidney disease. Continue to monitor BUN and creatinine. - Possible sleep apnea - Hyperlipidemia. Continue statin. - Morbid obesity with BMI 56. Further recommendations based on clinical course. Plan of care discussed with Dr. Garza. Exam/Review of Systems Vital Signs Vitals Vital Signs Date Time Temp Pulse Resp B/P Pulse Ox O2 Delivery O2 Flow Rate FiO2 01/08/17 08:18 75 01/08/17 08:03 98.3 22 162/70 93 01/07/17 08:00 Nasal Cannula 1.5 Intake and Output 01/07/17 01/07/17 01/08/17 15:00 23:00 07:00 Intake Total 800 ml 200 ml Balance 800 ml 200 ml Exam Constitutional: alert Head: normocephalic Neck: supple Respiratory: diminished breath sounds Cardiovascular: nl pulses, regular rate and rhythm Gastrointestinal: non-tender, soft Extremities: edema Results Result Diagram: 01/07/17 0450 01/07/17 0550 Results 24 hrs Laboratory Tests Test 01/07/17 12:36 01/07/17 18:07 01/07/17 21:08 01/08/17 01:20 Bedside Glucose 260 H 362 H 293 H 247 H Test 01/08/17 07:54 Bedside Glucose 303 H Medications Medications Current Medications Ondansetron HCl (Zofran Inj) 4 mg Q6H PRN IV NAUSEA AND/OR VOMITING; Start at 16:00 Aspirin (Aspirin) 81 mg DAILY PO Last administered on 01/08/17t 08:40; Admin Dose 81 MG; Start 01/07/17 at 09:00 Acetaminophen (Tylenol Tab) 650 mg Q6H PRN PO PAIN LEVEL 1-3 OR FEVER; Start 01/06/17 at 16:00 Morphine Sulfate (morphine) 2 mg Q4H PRN IV PAIN LEVEL 7-10; Start 01/06/17 at 16:00 Enoxaparin Sodium (Lovenox) 30 mg DAILY SC Last administered on 01/08/17 08: 42; Admin Dose 30 MG; Start 01/07/17 at 09:00 Diagnostic Test (Pha) (Accu-Chek) 1 ea 02 XX ; Start 01/07/17 at 02:00 Miscellaneous Information 1 ea NOTE XX ; Start 01/06/17 at 21:00 Glucose (Glutose) 15 gm Q15M PRN PO DECREASED GLUCOSE; Start 01/06/17 at 21:00 Glucose (Glutose) 22.5 gm Q15M PRN PO DECREASED GLUCOSE; Start 01/06/17 at 21: 00 Dextrose (D50w Syringe) 25 ml Q15M PRN IV DECREASED GLUCOSE; Start 01/06/17 at 21:00 Dextrose (D50w Syringe) 50 ml Q15M PRN IV DECREASED GLUCOSE; Start 01/06/17 at 21:00 Glucagon (Glucagen) 1 mg Q15M PRN IM DECREASED GLUCOSE; Start 01/06/17 at 21: 00 Glucose (Glutose) 15 gm Q15M PRN BUCCAL DECREASED GLUCOSE; Start 01/06/17 at 21:00 Loratadine (Claritin) 10 mg DAILY PO Last administered on 01/08/17 08:40; Admin Dose 10 MG; Start 01/08/17 at 09:00 MADHU CAZARES Jan 08, 2017 10:47
[2017-01-08] MEDS: METOPROLOL (XL) 50 MG TAB PO SCH (15:07)
--- NOTE | 2017-01-08 16:36 | CONS ---
DATE OF ADMISSION: 01/06/2017 DATE OF CONSULTATION: 01/08/2017 CARDIOLOGY CONSULTATION REASON FOR CONSULTATION: Shortness of breath, congestive heart failure exacerbation. REQUESTING PHYSICIAN: Olivia Kaplan MD HISTORY OF PRESENT ILLNESS: Ms. Lee is a 76-year-old female well known to myself from prior hosp ital admissions with a history of congestive heart failure with preserved left ventricular eje ction fraction, status post Lexiscan in July 2016 with no ischemia, hypertension, diabetes mellitus, obesity, who presented with worsening shortness of breath. Initially upon arrival, temperature 98.1 , blood pressure 156/90, pulse 76, respiratory rate 20, saturating 95%. The patient's labs revealed a white blood cell count of 7.6, hemoglobin 13, platelet count of 341, sodium 142, potassium 4.1, c reatinine 1.0, BUN 21. Troponin negative. BNP of 730, INR 0.94. The patient underwent a chest x-r ay revealing mild prominence of interstitial markings, may reflect mild underlying interstitial omar a or chronic lung changes. The patient's electrocardiogram revealed normal sinus rhythm, rate of 60 with inferior and lateral T-wave inversions. Patient subsequently admitted to the floor and since admit to the floor, has had labile blood pressures, most recently have been uncontrolled in the 170s systolic. The patient has had just a single negative troponin at this time. The patient continues to have shortness of breath. The patient has been placed on insulin therapy at this time, and Lasi x. PAST MEDICAL HISTORY: As above in HPI. MEDICATIONS CURRENTLY IN THE HOSPITAL: 1. Claritin. 2. Aspirin 81 mg daily. 3. Lovenox 20 mg subcutaneous daily. 4. Insulin sliding scale. 5. Lasix 20 mg IV b.i.d. 6. Zofran p.r.n. 7. Tylenol p.r.n. 8. Morphine p.r.n. ALLERGIES: NO KNOWN DRUG ALLERGIES. SOCIAL HISTORY: No tobacco, ETOH or illicit drug use. FAMILY HISTORY: No history of sudden cardiac or early CAD. REVIEW OF SYSTEMS: As above in HPI. CONSTITUTIONAL: No fevers, chills. PULMONARY: Positive shortness of breath. CARDIOVASCULAR: No current chest pain. GASTROINTESTINAL: No vomiting. GENITOURINARY: No hematuria. MUSCULOSKELETAL: Degenerative joint disease. PSYCHIATRIC: The patient denies depression. NEUROLOGIC: No documented history of CVA. PHYSICAL EXAMINATION: VITAL SIGNS: Temperature of 98, blood pressure 121/72, pulse 68, respiratory rate 22, saturating 92 %. GENERAL: The patient is alert, awake, in no acute distress. NECK: JVP approximately 9 to 10 cm water. CHEST: Decreased breath sounds at the bases bilaterally. HEART: Regular rate and rhythm. Normal S1, S2, I/ systolic murmur, nondisplaced PMI. ABDOMEN: Positive bowel sounds, soft. EXTREMITIES: No pitting edema, 1+ pulses bilaterally, posterior tibial. LABORATORY DATA: As above in HPI with most recently from today, sodium 141, potassium 4.2, creatini ne 1.39, BUN 27, white blood cell count 11.0, hemoglobin 12.2, platelet count of 228. IMAGING STUDIES: As above in HPI. No further imaging studies for my review at this time. ECG: As above in HPI. No further electrocardiograms for my review at this time. IMPRESSION: 1. Congestive heart failure exacerbation, diastolic, acute on chronic by most recent echo and stres s test. 2. Hypertension, uncontrolled. 3. Abnormal electrocardiogram with inferolateral T-wave inversions, assess for acute coronary syndr ome with a negative stress test in July 2016. 4. Diabetes mellitus. 5. Chronic kidney disease/renal insufficiency. 6. Obesity. RECOMMENDATIONS: 1. At this time, would maintain patient on telemetry monitoring to follow the rhythm and rate contr ol closely. 2. Continue patient's aspirin prophylaxis against cardiovascular events. 3. Continue the patient's Lasix diuresis, following strict I's and O's to grade diuresis closely an d creatinine. 4. We will initiate patient on antihypertensives with baseline Imdur and beta fernando, and we will likely add hydralazine in order to improve overall systolic blood pressure control. 5. Continue the patient's insulin therapy, following blood sugars closely, and we will check a 2D e cho to reassess the patient's ejection fraction and complete a rule out for myocardial infarction, e nsure this patient's constellation of systems are not due to any recent acute coronary syndrome. Thank you for allowing me to take part in the care of this patient. I will continue to follow along very closely with you. Further recommendations will be made as the patient progresses through the inpatient hospital clinical course. Dictated By: TERRIE GAINES/CLAUDIA Conf#: [id number] DID#: [id number] CC: OLIVIA KAPLAN MD; BRISA PURVIS MD;*EndCC*
--- NOTE | 2017-01-08 18:22 | RADRPT ---
Echocardiogram Report Patient Name: TAMAR TIERNEY Gender: Female Date: 1940 Study Date: 08-Jan-2017 Case Finisher: MIGUEL Location: 5552 Ref. Physician: TERRIE COTA Quality: Good Procedures: Transthoracic echocardiogram with complete 2D, M-Mode, and doppler examination. Indications: Congestive Heart Failure. 2D/M Mode Doppler Measurement Value Normal Ranges Measurement Value Normal Ranges AoR Diam MM 2.6 cm [place] Vmax 2.0 cm2 LA/Ao MM 1.3 [place] VTI 2.0 cm2 LA Dimen MM 3.4 cm AV Peak Aditya 1.5 m/sec LVIDd 2D 4.3 3.5 - 5.6 cm AV Peak PG 9.5 mmHg LVIDs 2D 2.9 2.1 - 4.1 cm LVOT Peak Aditya 1.1 m/sec LVPWd 2D 1.1 0.6 - 1.1 cm LVOT Peak PG 4.5 mmHg IVSd 2D 1.1 0.6 - 1.1 cm MV E Peak Aditya 1.3 m/sec EDV 2D 81.2 cm3 MV A Peak Aditya 1.1 m/sec ESV 2D 24.7 cm3 MV E/A 1.2 EF 2D 60.0 50.0 - 65.0 % MV Decel Time 212 msec LVOT Diam 1.9 cm MV Decel [place] 6 MV E/A 1.2 TR Peak Aditya 2.6 m/sec TR Peak PG 27.5 mmHg Findings Left Ventricle: Normal left ventricular systolic function. Normal left ventricular cavity size. Normal left ventricular wall thickness. Ejection fraction is visually estimated at 60 %. Right Ventricle: Normal right ventricular size. Normal right ventricular systolic function. Left Atrium: The left atrium is normal in size. Right Atrium: The right atrium is normal in size. Mitral Valve: There is trace to mild mitral valve regurgitation. Aortic Valve: Normal appearance of the aortic valve. No significant aortic stenosis or insufficiency. Aortic sclerosis without stenosis. Tricuspid Valve: Estimated peak PA systolic pressure 35 mmHg. There is mild tricuspid regurgitation. Pulmonic Valve: There is trace pulmonic regurgitation by color. Pericardium: Normal pericardium with no significant pericardial effusion. Aorta: Normal aortic root. IVC: The IVC is not well visualized. Conclusions 1.TDS, due to body habitus. 2.Normal left ventricular systolic function. Normal left ventricular cavity size. Normal left ventricular wall thickness. Ejection fraction is visually estimated at 60 %. 3.There is trace to mild mitral valve regurgitation. 4.Estimated peak PA systolic pressure 35 mmHg. There is mild tricuspid regurgitation. 5.There is trace pulmonic regurgitation by color. Electronically Signed By: Terrie Cota 08-Jan-2017 18:21:59 -0700 Patient Name: TAMAR TIERNEY Study Date: 08-Jan-2017 [id number]
[2017-01-08] MEDS: LINAGLIPTIN XX SCH (19:30)
[2017-01-08] MEDS: [UNRECOGNIZED DRUG - OTHER] XX SCH (19:30)
[2017-01-08] MEDS: EMPAGLIFLOZIN XX SCH (19:30)
[2017-01-08] MEDS ORDERED: INSULIN ASPART [NOVOLOG] 3 ML PEN SC SCH (21:00)
[2017-01-09] VITALS (12 sets, daily range): BP systolic 137–170; BP diastolic 67–92; PULSE 61–67; RESP 17–19
[2017-01-09] MEDS ORDERED: ACCU-CHEK XX SCH ×4 (02:00)
[2017-01-09] MEDS: ACCU-CHEK XX SCH ×2 (02:00)
[2017-01-09] MEDS: LINAGLIPTIN XX SCH ×3 (03:30→19:30)
[2017-01-09] MEDS: EMPAGLIFLOZIN XX SCH ×3 (03:30→19:30)
[2017-01-09] MEDS: [UNRECOGNIZED DRUG - OTHER] XX SCH ×3 (03:30→19:30)
[2017-01-09] MEDS: FUROSEMIDE 20 MG INJ IV SCH ×2 (05:22→18:05)
[2017-01-09] MEDS ORDERED: INSULIN GLARGINE [LANtus] 3 ML PEN SC SCH (08:00)
[2017-01-09] MEDS: INSULIN ASPART [NOVOLOG] 3 ML PEN SC SCH ×6 (08:41→21:29)
[2017-01-09] MEDS: ENOXAPARIN 30 MG/0.3 ML SYG SC SCH (08:43)
[2017-01-09] MEDS: METOPROLOL (XL) 50 MG TAB PO SCH (08:45)
[2017-01-09] MEDS: ASPIRIN 81 MG TAB PO SCH (08:46)
[2017-01-09] MEDS: LORATADINE 10 MG TAB PO SCH (08:46)
[2017-01-09 08:47] LABS: CHOL/HDL RATIO 6.3 RATIO
[2017-01-09] MEDS ORDERED: LINAGLIPTIN PO SCH (09:00)
[2017-01-09] MEDS ORDERED: EMPAGLIFLOZIN PO SCH (09:00)
[2017-01-09] MEDS ORDERED: [UNRECOGNIZED DRUG - OTHER] PO SCH (09:00)
--- NOTE | 2017-01-09 10:44 | CONS ---
Date/Time of Note Date/Time of Note DATE: 01/09/17 TIME: 10:42 Assessment/Plan Assessment/Plan Additional Assessment/Plan 1. Congestive heart failure exacerbation, diastolic, acute on chronic by most recent echo and stress test. Stable urine output now. 2. Hypertension, labile - con't Med rx 3. Abnormal electrocardiogram with inferolateral T-wave inversions, assess for acute coronary syndrome with a negative stress test in July 2016. NO CP now. 4. Diabetes mellitus. 5. Chronic kidney disease/renal insufficiency- avoid nephrotoxic meds. 6. Obesity. Consultation Date/Type/Reason Admit Date/Time Jan 06, 2017 at 13:10 Initial Consult Date 24 HR Interval Summary Free Text/Dictation NO acute events - no ectopy on tele - improved SOB. ROS: No fever, no chills, no nausea, no vomiting, no diarrhea/constipation No recent weight changes No chest pain, no PND, no orthopnea + SOB No dizziness, blurred vision No thirst, no heat or cold intolerance Exam/Review of Systems Vital Signs Vitals Vital Signs Date Time Temp Pulse Resp B/P Pulse Ox O2 Delivery O2 Flow Rate FiO2 01/09/17 08:00 61 01/09/17 07:53 97.8 17 157/72 95 01/08/17 20:00 Nasal Cannula 1.0 Intake and Output 01/08/17 01/08/17 01/09/17 15:00 23:00 07:00 Intake Total 900 ml 300 ml Balance 900 ml 300 ml Exam General: WN/WD/NAD, AOx 3 HEENT: Unicetric/atraumatic/EOMI (follows commands) NECK: JVD elevated, no thyromegaly Lymph: no lymphadenopathy HEART: regular with no S3, II/ systolic murmur at apex LUNGS: Coarse sounds ABD: soft, NT, ND, +BS : Intact Neuro: non focal SKIN: chronic changes EXT: trace edema Results Result Diagram: 01/07/17 0450 01/07/17 0550 Results 24 hrs Laboratory Tests Test 01/08/17 11:38 01/08/17 17:10 01/08/17 18:22 01/08/17 21:15 Bedside Glucose 338 H 376 H 447 *H Troponin I < 0.012 Test 01/09/17 00:54 01/09/17 05:20 01/09/17 07:40 01/09/17 08:35 Troponin I 0.013 Bedside Glucose 389 H 444 *H Hemoglobin A1c 9.2 H Triglycerides Level 433 H Cholesterol Level 209 H LDL Cholesterol, Calculated 89 HDL Cholesterol 33 Cholesterol/HDL Ratio 6.3 Medications Medications Current Medications Ondansetron HCl (Zofran Inj) 4 mg Q6H PRN IV NAUSEA AND/OR VOMITING; Start at 16:00 Aspirin (Aspirin) 81 mg DAILY PO Last administered on 01/09/17 08:46; Admin Dose 81 MG; Start 01/07/17 at 09:00 Acetaminophen (Tylenol Tab) 650 mg Q6H PRN PO PAIN LEVEL 1-3 OR FEVER; Start 01/06/17 at 16:00 Morphine Sulfate (morphine) 2 mg Q4H PRN IV PAIN LEVEL 7-10; Start 01/06/17 at 16:00 Enoxaparin Sodium (Lovenox) 30 mg DAILY SC Last administered on 01/09/17 08: 43; Admin Dose 30 MG; Start 01/07/17 at 09:00 Diagnostic Test (Pha) (Accu-Chek) 1 ea 02 XX ; Start 01/07/17 at 02:00 Miscellaneous Information 1 ea NOTE XX ; Start 01/06/17 at 21:00 Glucose (Glutose) 15 gm Q15M PRN PO DECREASED GLUCOSE; Start 01/06/17 at 21:00 Glucose (Glutose) 22.5 gm Q15M PRN PO DECREASED GLUCOSE; Start 01/06/17 at 21: 00 Dextrose (D50w Syringe) 25 ml Q15M PRN IV DECREASED GLUCOSE; Start 01/06/17 at 21:00 Dextrose (D50w Syringe) 50 ml Q15M PRN IV DECREASED GLUCOSE; Start 01/06/17 at 21:00 Glucagon (Glucagen) 1 mg Q15M PRN IM DECREASED GLUCOSE; Start 01/06/17 at 21: 00 Glucose (Glutose) 15 gm Q15M PRN BUCCAL DECREASED GLUCOSE; Start 01/06/17 at 21:00 Loratadine (Claritin) 10 mg DAILY PO Last administered on 01/09/17 08:46; Admin Dose 10 MG; Start 01/08/17 at 09:00 Hydralazine HCl (Apresoline) 25 mg Q8 PO Last administered on 01/09/17 05:22 ; Admin Dose 25 MG; Start 01/08/17 at 14:00 Metoprolol Succinate (Toprol Xl) 50 mg DAILY PO Last administered on 08:45; Admin Dose 50 MG; Start 01/08/17 at 15:00 Miscellaneous Information 1 each QAM PO ; Start 01/09/17 at 09:00; Status UNV Insulin Glargine (Lantus) 42 unit DAILY@08 SC Last administered on 01/09/17 08:40; Admin Dose 42 UNIT; Start 01/09/17 at 08:00 Miscellaneous Information (*Order Clarification Bulletin) Empagliflozin/ Linagliptin (Glyxambi... Q8H XX ; Start 01/08/17 at 19:30 Diagnostic Test (Pha) (Accu-Chek) 1 ea 02 XX ; Start 01/09/17 at 02:00 WERNER FALCON MD Jan 09, 2017 10:44
--- NOTE | 2017-01-09 18:05 | PN ---
Date/Time of Note Date/Time of Note DATE: 01/09/17 TIME: 18:01 Assessment/Plan VTE Prophylaxis VTE Prophylaxis Intervention: SCD's Lines/Catheters IV C[facility]ter Type (from [facility] Saline Lock Assessment/Plan Chief Complaint/Hosp Course Patient was elevated blood sugar, continue ADA diet, Lantus and pre-meal NovoLog. Assessment/Plan - Diastolic acute on chronic congestive heart failure exacerbation. Continue Lasix. Dr. Cota is following patient. Cardiology consultation. Continue to monitor electrolytes. - Hypertension. - Diabetes mellitus type 2 with hemoglobin A1c 9.2. Continue Lantus and pre- meal NovoLog as well as NovoLog per mild algorithm sliding scale. Dr. Bartholomew is asked to see patient in endocrinology consultation. - Acute on chronic kidney disease. Continue to monitor BUN and creatinine. - Possible sleep apnea - Hyperlipidemia. Continue statin. - Morbid obesity with BMI 56. Further recommendations based on clinical course. Plan of care discussed with Dr. Garza. Problems: Exam/Review of Systems Vital Signs Vitals Vital Signs Date Time Temp Pulse Resp B/P Pulse Ox O2 Delivery O2 Flow Rate FiO2 01/09/17 16:02 98.4 62 19 147/67 91 01/09/17 08:00 Nasal Cannula 1.0 Intake and Output 01/08/17 01/08/17 01/09/17 14:59 22:59 06:59 Intake Total 900 ml 300 ml Balance 900 ml 300 ml Exam Constitutional: alert Head: normocephalic Neck: supple Respiratory: diminished breath sounds Cardiovascular: nl pulses, regular rate and rhythm Gastrointestinal: non-tender, soft Extremities: edema Results Result Diagram: 01/07/17 0450 01/09/17 1009 Results 24 hrs Laboratory Tests Test 01/08/17 18:22 01/08/17 21:15 01/09/17 00:54 01/09/17 05:20 Troponin I < 0.012 0.013 Bedside Glucose 447 *H 389 H Test 01/09/17 07:40 01/09/17 08:35 01/09/17 10:09 01/09/17 12:06 Hemoglobin A1c 9.2 H Triglycerides Level 433 H Cholesterol Level 209 H LDL Cholesterol, Calculated 89 HDL Cholesterol 33 Cholesterol/HDL Ratio 6.3 Bedside Glucose 444 *H 435 *H Glucose Level 574 *H Test 01/09/17 17:38 Bedside Glucose 504 *H Medications Medications Current Medications Ondansetron HCl (Zofran Inj) 4 mg Q6H PRN IV NAUSEA AND/OR VOMITING; Start at 16:00 Aspirin (Aspirin) 81 mg DAILY PO Last administered on 01/09/17 08:46; Admin Dose 81 MG; Start 01/07/17 at 09:00 Acetaminophen (Tylenol Tab) 650 mg Q6H PRN PO PAIN LEVEL 1-3 OR FEVER; Start 01/06/17 at 16:00 Morphine Sulfate (morphine) 2 mg Q4H PRN IV PAIN LEVEL 7-10; Start 01/06/17 at 16:00 Enoxaparin Sodium (Lovenox) 30 mg DAILY SC Last administered on 01/09/17 08: 43; Admin Dose 30 MG; Start 01/07/17 at 09:00 Miscellaneous Information 1 ea NOTE XX ; Start 01/06/17 at 21:00 Glucose (Glutose) 15 gm Q15M PRN PO DECREASED GLUCOSE; Start 01/06/17 at 21:00 Glucose (Glutose) 22.5 gm Q15M PRN PO DECREASED GLUCOSE; Start 01/06/17 at 21: 00 Dextrose (D50w Syringe) 25 ml Q15M PRN IV DECREASED GLUCOSE; Start 01/06/17 at 21:00 Dextrose (D50w Syringe) 50 ml Q15M PRN IV DECREASED GLUCOSE; Start 01/06/17 at 21:00 Glucagon (Glucagen) 1 mg Q15M PRN IM DECREASED GLUCOSE; Start 01/06/17 at 21: 00 Glucose (Glutose) 15 gm Q15M PRN BUCCAL DECREASED GLUCOSE; Start 01/06/17 at 21:00 Loratadine (Claritin) 10 mg DAILY PO Last administered on 01/09/17 08:46; Admin Dose 10 MG; Start 01/08/17 at 09:00 Hydralazine HCl (Apresoline) 25 mg Q8 PO Last administered on 01/09/17 13:08 ; Admin Dose 25 MG; Start 01/08/17 at 14:00 Metoprolol Succinate (Toprol Xl) 50 mg DAILY PO Last administered on 08:45; Admin Dose 50 MG; Start 01/08/17 at 15:00 Miscellaneous Information 1 each QAM PO ; Start 01/09/17 at 09:00; Status UNV Miscellaneous Information (*Order Clarification Bulletin) Empagliflozin/ Linagliptin (Glyxambi... Q8H XX ; Start 01/08/17 at 19:30 Diagnostic Test (Pha) (Accu-Chek) 1 ea 02 XX ; Start 01/09/17 at 02:00 Nifedipine (Procardia Xl) 30 mg DAILY PO ; Start 01/10/17 at 09:00 Insulin Glargine (Lantus) 40 unit DAILY@08 SC ; Start 01/10/17 at 08:00 Insulin Human NPH (Humulin N) 30 unit DAILY@20 SC ; Start 01/09/17 at 20:00 MADHU CAZARES Jan 09, 2017 18:05
[2017-01-09] MEDS ORDERED: NPH, HUMAN INSULIN ISOPHANE 3ML VIAL SC SCH (20:00)
--- NOTE | 2017-01-09 20:55 | CONS ---
Date/Time of Note Date/Time of Note DATE: 01/09/17 TIME: 20:40 Assessment/Plan Assessment/Plan Problems: (1) DM w/o complication type II, uncontrolled Status: Chronic Comment: Profound hyperglycemia today. In most situations like this, best to aggressively hydrate pt. However, cannot hydrate pt. due to her CHF. Will resume the same insulin regimen as that which was effective during last admit: Lantus 40 units qam, Novolog 22/03/16 plus ISS, and NPH 30 units qhs. Reevaluate tomorrow. May consider increasing aggressivness of ISS if inadequate to restore euglycemia. Consultation Date/Type/Reason Admit Date/Time Jan 06, 2017 at 13:10 Date of Consultation: Jan 09, 2017 Type of Consultation: Endocrinology Reason for Consultation Type 2 Diabetes Mellitus Out of Control Referring Provider: MADHU CAZARES Hx of Present Illness 76 y/o HF w/ h/o T2DM w/ multiple complications, CKD stage 2-3, chronic diastolic CHF, CAD, HTN, glaucoma, vision loss, depression, anxiety, hyperlipidemia, and morbid obesity. As an outpt. she is maintained on very high doses of insulin. In [facility] until last2 weeks when she developed SOB, chest pressure, BLE edema. [place] like she was drowning. Saw PMD who increased her diuretic. Not effective. Worsening over last 4-5 days. 3 days ago came to [facility] and was admitted. As usual, very difficult to control glucose. Endo consulted. Constitutional: requiring O2 Eyes: no complaints ENT: no complaints Respiratory: cough, shortness of breath Cardiovascular: edema, lightheadedness Gastrointestinal: no complaints Genitourinary: no complaints Musculoskeletal: no complaints Neurologic: no complaints Past Medical History Medical History: congestive heart failure, coronary artery disease, diabetes, high cholesterol, hypertension, renal disease, other (glaucoma w/ B vision loss , anxiety, depression) Past Surgical History Past Surgical Hx: other (Ovarian cystectomy, BECKY, laser eye surgery) Family History Significant Family History: cancer (uterine-sister), diabetes, other (EtOH abuse in father) Social History b. [facility], in [facility] 43 y, from , 1 daughter Alcohol Use: none Smoking Status: Never smoker Drug Use: none Exam/Review of Systems Vital Signs Vitals VS - Last 72 Hours, by Label Date Time Temp Pulse Resp B/P Pulse Ox O2 Delivery O2 Flow Rate FiO2 01/09/17 19:59 Nasal Cannula 1.0 01/09/17 19:43 97.4 70 18 170/77 98 01/09/17 16:02 98.4 62 19 147/67 91 01/09/17 16:00 63 01/09/17 12:04 97.8 63 18 137/92 96 01/09/17 12:00 61 01/09/17 08:00 Nasal Cannula 1.0 01/09/17 08:00 61 01/09/17 07:53 97.8 75 17 157/72 95 01/09/17 04:21 65 01/09/17 04:00 97.8 67 18 149/69 97 01/09/17 00:21 67 01/08/17 23:59 98.6 70 18 118/76 94 01/08/17 20:15 64 01/08/17 20:00 Nasal Cannula 1.0 01/08/17 19:54 98.5 64 18 121/62 94 01/08/17 16:27 64 01/08/17 15:59 97.6 68 18 174/81 95 01/08/17 12:16 62 01/08/17 12:00 Nasal Cannula 1.0 01/08/17 11:44 98.0 68 22 171/72 92 01/08/17 08:18 75 01/08/17 08:03 98.3 77 22 162/70 93 01/08/17 08:00 Nasal Cannula 1.0 01/08/17 04:25 66 01/08/17 04:00 97.8 73 21 149/69 96 01/08/17 00:30 64 01/08/17 00:07 97.8 68 21 176/77 96 01/07/17 20:28 82 01/07/17 20:00 98.1 72 22 136/61 94 01/07/17 17:00 98.4 64 68 163/79 96 01/07/17 16:15 66 01/07/17 12:35 69 01/07/17 11:59 98.4 64 23 124/55 94 01/07/17 08:40 65 01/07/17 08:00 Nasal Cannula 1.5 01/07/17 07:57 98.1 66 21 134/63 94 01/07/17 04:12 97.9 62 18 129/53 Nasal Cannula 1.5 01/07/17 04:00 57 01/07/17 00:00 60 01/07/17 00:00 98.1 59 18 126/54 Nasal Cannula 2.0 Vital Signs Date Time Temp Pulse Resp B/P Pulse Ox O2 Delivery O2 Flow Rate FiO2 01/09/17 19:59 Nasal Cannula 1.0 01/09/17 19:43 97.4 70 18 170/77 98 Intake and Output 01/08/17 01/08/17 01/09/17 14:59 22:59 06:59 Intake Total 900 ml 300 ml Balance 900 ml 300 ml Exam Constitutional: alert, obese, oriented Psych: nl mood/affect, no complaints Eyes: EOMI, PERRL, nl conjunctiva, nl lids, nl sclera ENMT: mucosa pink and moist, nl external ears & nose Neck: non-tender, supple, No bruits, No masses, No thyromegaly Respiratory: clear to auscultation, normal air movement Cardiovascular: murmurs/extra sounds, nl pulses, regular rate and rhythm, No edema, No rub Gastrointestinal: bowel sounds, nl liver, spleen, non-tender, soft, No mass, No rebound or guarding Musculoskeletal: nl extremities to inspection Extremities: clubbing, normal pulses, No cyanosis, No edema Neurological: MAMMAL[employer] TE[employer]ER II-XII intact, nl mental status, nl speech, nl strength Additional Comments Bedside Glucose - 72 Hours Test 01/06/17 23:21 01/07/17 02:36 01/07/17 08:15 01/07/17 12:36 Bedside Glucose 177mg/dL (70-220) 191mg/dL (70-220) 262mg/dL (70-220) H 260mg/dL (70-220) H Test 01/07/17 18:07 01/07/17 21:08 01/08/17 01:20 01/08/17 07:54 Bedside Glucose 362mg/dL (70-220) H 293mg/dL (70-220) H 247mg/dL (70-220) H 303mg/dL (70-220) H Test 01/08/17 11:38 01/08/17 17:10 01/08/17 21:15 01/09/17 05:20 Bedside Glucose 338mg/dL (70-220) H 376mg/dL (70-220) H 447mg/dL (70-220) *H 389mg/dL (70-220) H Test 01/09/17 08:35 01/09/17 12:06 01/09/17 17:38 Bedside Glucose 444mg/dL (70-220) *H 435mg/dL (70-220) *H 504mg/dL (70-220) *H Results Result Diagram: 01/07/17 0450 01/09/17 1826 Results 24 hrs Laboratory Tests Test 01/08/17 21:15 01/09/17 00:54 01/09/17 05:20 01/09/17 07:40 Bedside Glucose 447 *H 389 H Troponin I 0.013 Hemoglobin A1c 9.2 H Triglycerides Level 433 H Cholesterol Level 209 H LDL Cholesterol, Calculated 89 HDL Cholesterol 33 Cholesterol/HDL Ratio 6.3 Test 01/09/17 08:35 01/09/17 10:09 01/09/17 12:06 01/09/17 17:38 Bedside Glucose 444 *H 435 *H 504 *H Glucose Level 574 *H Test 01/09/17 18:26 Glucose Level 590 *H Medications Medications Current Medications Ondansetron HCl (Zofran Inj) 4 mg Q6H PRN IV NAUSEA AND/OR VOMITING; Start at 16:00 Aspirin (Aspirin) 81 mg DAILY PO Last administered on 01/09/17 08:46; Admin Dose 81 MG; Start 01/07/17 at 09:00 Acetaminophen (Tylenol Tab) 650 mg Q6H PRN PO PAIN LEVEL 1-3 OR FEVER; Start 01/06/17 at 16:00 Morphine Sulfate (morphine) 2 mg Q4H PRN IV PAIN LEVEL 7-10; Start 01/06/17 at 16:00 Enoxaparin Sodium (Lovenox) 30 mg DAILY SC Last administered on 01/09/17 08: 43; Admin Dose 30 MG; Start 01/07/17 at 09:00 Miscellaneous Information 1 ea NOTE XX ; Start 01/06/17 at 21:00 Glucose (Glutose) 15 gm Q15M PRN PO DECREASED GLUCOSE; Start 01/06/17 at 21:00 Glucose (Glutose) 22.5 gm Q15M PRN PO DECREASED GLUCOSE; Start 01/06/17 at 21: 00 Dextrose (D50w Syringe) 25 ml Q15M PRN IV DECREASED GLUCOSE; Start 01/06/17 at 21:00 Dextrose (D50w Syringe) 50 ml Q15M PRN IV DECREASED GLUCOSE; Start 01/06/17 at 21:00 Glucagon (Glucagen) 1 mg Q15M PRN IM DECREASED GLUCOSE; Start 01/06/17 at 21: 00 Glucose (Glutose) 15 gm Q15M PRN BUCCAL DECREASED GLUCOSE; Start 01/06/17 at 21:00 Loratadine (Claritin) 10 mg DAILY PO Last administered on 01/09/17 08:46; Admin Dose 10 MG; Start 01/08/17 at 09:00 Hydralazine HCl (Apresoline) 25 mg Q8 PO Last administered on 01/09/17 13:08 ; Admin Dose 25 MG; Start 01/08/17 at 14:00 Metoprolol Succinate (Toprol Xl) 50 mg DAILY PO Last administered on 08:45; Admin Dose 50 MG; Start 01/08/17 at 15:00 Miscellaneous Information 1 each QAM PO ; Start 01/09/17 at 09:00; Status UNV Miscellaneous Information (*Order Clarification Bulletin) Empagliflozin/ Linagliptin (Glyxambi... Q8H XX ; Start 01/08/17 at 19:30 Diagnostic Test (Pha) (Accu-Chek) 1 ea 02 XX ; Start 01/09/17 at 02:00 Nifedipine (Procardia Xl) 30 mg DAILY PO ; Start 01/10/17 at 09:00 Insulin Glargine (Lantus) 40 unit DAILY@08 SC ; Start 01/10/17 at 08:00 Insulin Human NPH (Humulin N) 30 unit DAILY@20 SC Last administered on 19:40; Admin Dose 30 UNIT; Start 01/09/17 at 20:00 TONY KELLY MD Jan 09, 2017 20:50
[2017-01-09] MEDS ORDERED: INSULIN ASPART [NOVOLOG] 3 ML PEN SC ONE (23:00)
[2017-01-10] VITALS (11 sets, daily range): BP systolic 116–167; BP diastolic 56–72; PULSE 62–93; RESP 18–20
[2017-01-10] MEDS: ACCU-CHEK XX SCH (02:00)
[2017-01-10] MEDS: [UNRECOGNIZED DRUG - OTHER] XX SCH ×3 (03:10→19:30)
[2017-01-10] MEDS: EMPAGLIFLOZIN XX SCH ×3 (03:10→19:30)
[2017-01-10] MEDS: LINAGLIPTIN XX SCH ×3 (03:10→19:30)
[2017-01-10] MEDS: FUROSEMIDE 20 MG INJ IV SCH ×2 (05:29→17:35)
[2017-01-10] MEDS ORDERED: INSULIN ASPART [NOVOLOG] 3 ML PEN SC SCH ×3 (07:30→17:35)
[2017-01-10] MEDS ORDERED: INSULIN GLARGINE [LANtus] 3 ML PEN SC SCH ×2 (08:00)
[2017-01-10 08:32] LABS: BASOPHILS % 0.4 % (0.0-2.0); EOSINOPHILS # 0.2 10^3/ul (0.0-0.5); EOSINOPHILS % 2.3 % (0.0-7.0); HEMATOCRIT 41.6 % (37.0-47.0); LYMPHOCYTES # 1.5 10^3/ul (0.8-2.9); LYMPHOCYTES % 14.6 % (15.0-51.0); MEAN CORPUSCULAR HEMOGLOBIN 27.6 pg (29.0-33.0); MEAN CORPUSCULAR HGB CONC 31.3 g/dl (32.0-37.0); MEAN CORPUSCULAR VOLUME 88.3 fl (82.0-101.0); MEAN PLATELET VOLUME 9.3 fl (7.4-10.4); MONOCYTE # 0.7 10^3/ul (0.3-0.9); MONOCYTES % 6.5 % (0.0-11.0); NEUTROPHIL # 7.7 10^3/ul (1.6-7.5); NEUTROPHILS % 75.6 % (39.0-77.0); PLATELET COUNT 298 10^3/UL (140-415); RED BLOOD COUNT 4.71 10^6/ul (4.20-5.40); RED CELL DISTRIBUTION WIDTH 15.3 % (11.5-14.5); WHITE BLOOD COUNT 10.2 10^3/ul (4.8-10.8)
[2017-01-10] MEDS: INSULIN ASPART [NOVOLOG] 3 ML PEN SC SCH ×5 (08:34→20:56)
[2017-01-10] MEDS: ENOXAPARIN 30 MG/0.3 ML SYG SC SCH (08:36)
[2017-01-10] MEDS: ASPIRIN 81 MG TAB PO SCH (08:37)
[2017-01-10] MEDS: LORATADINE 10 MG TAB PO SCH (08:37)
[2017-01-10] MEDS: METOPROLOL (XL) 50 MG TAB PO SCH (08:37)
[2017-01-10] MEDS: NIFEdipine (XL) 30 MG TAB PO SCH (08:38)
[2017-01-10 09:09] LABS: CALCIUM 9.1 mg/dl (8.4-10.2); CREATININE 1.3 mg/dl (0.44-1.00)
--- NOTE | 2017-01-10 12:37 | PN ---
Date/Time of Note Date/Time of Note DATE: 01/10/17 TIME: 12:29 Assessment/Plan VTE Prophylaxis VTE Prophylaxis Intervention: SCD's Lines/Catheters IV [facility] Urinary Cath still in place: No Assessment/Plan Chief Complaint/Hosp Course Patient's blood sugar is better controlled however still remains elevated, endocrinology consult is appreciated. Patient continued on IV Lasix, continues to have shortness of breath on exertion, continue telemetry monitoring. Assessment/Plan - Diastolic acute on chronic congestive heart failure exacerbation. Continue Lasix. Dr. Cota is following in cardiology consultation. Continue to monitor electrolytes. - Hypertension. - Diabetes mellitus type 2 with hemoglobin A1c 9.2. Continue Lantus and pre- meal NovoLog as well as NovoLog per mild algorithm sliding scale. Dr. Bartholomew is following in endocrinology consultation. - Acute on chronic kidney disease. Continue to monitor BUN and creatinine. - Possible sleep apnea, continue BiPAP per pulmonology. Dr. Bravo is asked to see patient in pulmonology consultation. - Hyperlipidemia. Continue statin. - Morbid obesity with BMI 56. Further recommendations based on clinical course. Plan of care discussed with Dr. Garza. Problems: Exam/Review of Systems Vital Signs Vitals Vital Signs Date Time Temp Pulse Resp B/P Pulse Ox O2 Delivery O2 Flow Rate FiO2 01/10/17 12:00 62 01/10/17 11:22 97.8 18 124/62 99 01/09/17 20:45 Nasal Cannula 3.0 Intake and Output 01/09/17 01/09/17 01/10/17 15:00 23:00 07:00 Intake Total 1200 ml 500 ml Output Total 1350 ml Balance -150 ml 500 ml Exam Constitutional: alert Head: normocephalic Neck: supple Respiratory: diminished breath sounds Cardiovascular: nl pulses, regular rate and rhythm Gastrointestinal: non-tender, soft Extremities: edema Results Result Diagram: 01/10/17 0805 01/10/17 0805 Results 24 hrs Laboratory Tests Test 01/09/17 17:38 01/09/17 18:26 01/09/17 21:16 01/10/17 02:19 Bedside Glucose 504 *H 394 H 265 H Glucose Level 590 *H Test 01/10/17 08:05 01/10/17 08:28 01/10/17 11:46 White Blood Count 10.2 Red Blood Count 4.71 Hemoglobin 13.0 Hematocrit 41.6 Mean Corpuscular Volume 88.3 Mean Corpuscular Hemoglobin 27.6 L Mean Corpuscular Hemoglobin Concent 31.3 L Red Cell Distribution Width 15.3 H Platelet Count 298 Mean Platelet Volume 9.3 Neutrophils % 75.6 Lymphocytes % 14.6 L Monocytes % 6.5 Eosinophils % 2.3 Basophils % 0.4 Nucleated Red Blood Cells % 0.0 Neutrophils # 7.7 H Lymphocytes # 1.5 Monocytes # 0.7 Eosinophils # 0.2 Basophils # 0.0 Nucleated Red Blood Cells # 0.0 Sodium Level 137 Potassium Level 4.0 Chloride Level 92 L Carbon Dioxide Level 34 H Anion Gap 15 Blood Urea Nitrogen 29 H Creatinine 1.30 H Glucose Level 339 #H Calcium Level 9.1 Bedside Glucose 350 H 394 H Medications Medications Current Medications Ondansetron HCl (Zofran Inj) 4 mg Q6H PRN IV NAUSEA AND/OR VOMITING; Start at 16:00 Aspirin (Aspirin) 81 mg DAILY PO Last administered on 01/10/17 08:37; Admin Dose 81 MG; Start 01/07/17 at 09:00 Acetaminophen (Tylenol Tab) 650 mg Q6H PRN PO PAIN LEVEL 1-3 OR FEVER; Start 01/06/17 at 16:00 Morphine Sulfate (morphine) 2 mg Q4H PRN IV PAIN LEVEL 7-10; Start 01/06/17 at 16:00 Enoxaparin Sodium (Lovenox) 30 mg DAILY SC Last administered on 01/10/17 08: 36; Admin Dose 30 MG; Start 01/07/17 at 09:00 Miscellaneous Information 1 ea NOTE XX ; Start 01/06/17 at 21:00 Glucose (Glutose) 15 gm Q15M PRN PO DECREASED GLUCOSE; Start 01/06/17 at 21:00 Glucose (Glutose) 22.5 gm Q15M PRN PO DECREASED GLUCOSE; Start 01/06/17 at 21: 00 Dextrose (D50w Syringe) 25 ml Q15M PRN IV DECREASED GLUCOSE; Start 01/06/17 at 21:00 Dextrose (D50w Syringe) 50 ml Q15M PRN IV DECREASED GLUCOSE; Start 01/06/17 at 21:00 Glucagon (Glucagen) 1 mg Q15M PRN IM DECREASED GLUCOSE; Start 01/06/17 at 21: 00 Glucose (Glutose) 15 gm Q15M PRN BUCCAL DECREASED GLUCOSE; Start 01/06/17 at 21:00 Loratadine (Claritin) 10 mg DAILY PO Last administered on 01/10/17 08:37; Admin Dose 10 MG; Start 01/08/17 at 09:00 Hydralazine HCl (Apresoline) 25 mg Q8 PO Last administered on 01/10/17 05:29 ; Admin Dose 25 MG; Start 01/08/17 at 14:00 Metoprolol Succinate (Toprol Xl) 50 mg DAILY PO Last administered on 08:37; Admin Dose 50 MG; Start 01/08/17 at 15:00 Miscellaneous Information 1 each QAM PO ; Start 01/09/17 at 09:00; Status UNV Miscellaneous Information (*Order Clarification Bulletin) Empagliflozin/ Linagliptin (Glyxambi... Q8H XX ; Start 01/08/17 at 19:30 Diagnostic Test (Pha) (Accu-Chek) 1 ea 02 XX ; Start 01/09/17 at 02:00 Nifedipine (Procardia Xl) 30 mg DAILY PO Last administered on 01/10/17 08:38 ; Admin Dose 30 MG; Start 01/10/17 at 09:00 Insulin Human NPH (Humulin N) 30 unit DAILY@20 SC Last administered on 19:40; Admin Dose 30 UNIT; Start 01/09/17 at 20:00 Insulin Glargine (Lantus) 46 unit DAILY@08 SC Last administered on 01/10/17 08:32; Admin Dose 46 UNIT; Start 01/10/17 at 08:00 MADHU CAZARES Jan 10, 2017 12:37
--- NOTE | 2017-01-10 17:17 | CONS ---
Date/Time of Note Date/Time of Note DATE: 01/10/17 TIME: 17:13 Assessment/Plan Assessment/Plan Chief Complaint/Hosp Course IMPRESSION: 1. Congestive heart failure exacerbation, diastolic, acute on chronic by most recent echo and stress test. 2. Hypertension-Now improved control 3. Abnormal electrocardiogram with inferolateral T-wave inversions, assess for acute coronary syndrome with a negative stress test in July 2016.-negative trop x 3 4. Diabetes mellitus with uncontrolled BS 5. Chronic kidney disease/renal insufficiency. 6. Obesity. REcc: -Tele -serial ecg's -Contineu asa -Continue lasix diuresis -Continue BB/procardia with well controlled BP at this time -Follow BS clsoely Problems: Consultation Date/Type/Reason Admit Date/Time Jan 06, 2017 at 13:10 Initial Consult Date 01/09/17 Type of Consultation: cardiology Reason for Consultation CHF Referring Provider: MADHU CAZARES Exam/Review of Systems Vital Signs Vitals Vital Signs Date Time Temp Pulse Resp B/P Pulse Ox O2 Delivery O2 Flow Rate FiO2 01/10/17 16:00 67 01/10/17 15:34 97.9 18 119/56 92 01/10/17 08:30 Nasal Cannula 2.0 Intake and Output 01/09/17 01/09/17 01/10/17 15:00 23:00 07:00 Intake Total 1200 ml 500 ml Output Total 1350 ml Balance -150 ml 500 ml Exam Review of Systems: CONSTITUTIONAL: No fevers, chills. PULMONARY: moderate sob CARDIOVASCULAR: No chest pain/palpitations GASTROINTESTINAL: No nausea/vomiting. GENITOURINARY: No hematuria/dysuria. MUSCULOSKELETAL: No myagias/arthalgias. PSYCHIATRIC: The patient denies depression. NEUROLOGIC: No weakness Constitutional: other (sleepiing, arouasble) Psych: no complaints Head: normocephalic Eyes: nl conjunctiva ENMT: mucosa pink and moist Neck: jvd (9 cm water), supple Respiratory: diminished breath sounds Cardiovascular: regular rate and rhythm Gastrointestinal: non-tender, soft Musculoskeletal: muscle tone (normal) Extremities: pitting pedal edema (BIlateral) Neurological: other (No focal deficits) Results Result Diagram: 01/10/17 0805 01/10/17 0805 Results 24 hrs Laboratory Tests Test 01/09/17 17:38 01/09/17 18:26 01/09/17 21:16 01/10/17 02:19 Bedside Glucose 504 *H 394 H 265 H Glucose Level 590 *H Test 01/10/17 08:05 01/10/17 08:28 01/10/17 11:46 White Blood Count 10.2 Red Blood Count 4.71 Hemoglobin 13.0 Hematocrit 41.6 Mean Corpuscular Volume 88.3 Mean Corpuscular Hemoglobin 27.6 L Mean Corpuscular Hemoglobin Concent 31.3 L Red Cell Distribution Width 15.3 H Platelet Count 298 Mean Platelet Volume 9.3 Neutrophils % 75.6 Lymphocytes % 14.6 L Monocytes % 6.5 Eosinophils % 2.3 Basophils % 0.4 Nucleated Red Blood Cells % 0.0 Neutrophils # 7.7 H Lymphocytes # 1.5 Monocytes # 0.7 Eosinophils # 0.2 Basophils # 0.0 Nucleated Red Blood Cells # 0.0 Sodium Level 137 Potassium Level 4.0 Chloride Level 92 L Carbon Dioxide Level 34 H Anion Gap 15 Blood Urea Nitrogen 29 H Creatinine 1.30 H Glucose Level 339 #H Calcium Level 9.1 Bedside Glucose 350 H 394 H Medications Medications Current Medications Ondansetron HCl (Zofran Inj) 4 mg Q6H PRN IV NAUSEA AND/OR VOMITING; Start at 16:00 Aspirin (Aspirin) 81 mg DAILY PO Last administered on 01/10/17 08:37; Admin Dose 81 MG; Start 01/07/17 at 09:00 Acetaminophen (Tylenol Tab) 650 mg Q6H PRN PO PAIN LEVEL 1-3 OR FEVER; Start 01/06/17 at 16:00 Morphine Sulfate (morphine) 2 mg Q4H PRN IV PAIN LEVEL 7-10; Start 01/06/17 at 16:00 Enoxaparin Sodium (Lovenox) 30 mg DAILY SC Last administered on 01/10/17 08: 36; Admin Dose 30 MG; Start 01/07/17 at 09:00 Miscellaneous Information 1 ea NOTE XX ; Start 01/06/17 at 21:00 Glucose (Glutose) 15 gm Q15M PRN PO DECREASED GLUCOSE; Start 01/06/17 at 21:00 Glucose (Glutose) 22.5 gm Q15M PRN PO DECREASED GLUCOSE; Start 01/06/17 at 21: 00 Dextrose (D50w Syringe) 25 ml Q15M PRN IV DECREASED GLUCOSE; Start 01/06/17 at 21:00 Dextrose (D50w Syringe) 50 ml Q15M PRN IV DECREASED GLUCOSE; Start 01/06/17 at 21:00 Glucagon (Glucagen) 1 mg Q15M PRN IM DECREASED GLUCOSE; Start 01/06/17 at 21: 00 Glucose (Glutose) 15 gm Q15M PRN BUCCAL DECREASED GLUCOSE; Start 01/06/17 at 21:00 Loratadine (Claritin) 10 mg DAILY PO Last administered on 01/10/17 08:37; Admin Dose 10 MG; Start 01/08/17 at 09:00 Hydralazine HCl (Apresoline) 25 mg Q8 PO Last administered on 01/10/17 14:57 ; Admin Dose 25 MG; Start 01/08/17 at 14:00 Metoprolol Succinate (Toprol Xl) 50 mg DAILY PO Last administered on 08:37; Admin Dose 50 MG; Start 01/08/17 at 15:00 Miscellaneous Information 1 each QAM PO ; Start 01/09/17 at 09:00; Status UNV Miscellaneous Information (*Order Clarification Bulletin) Empagliflozin/ Linagliptin (Glyxambi... Q8H XX ; Start 01/08/17 at 19:30 Diagnostic Test (Pha) (Accu-Chek) 1 ea 02 XX ; Start 01/09/17 at 02:00 Nifedipine (Procardia Xl) 30 mg DAILY PO Last administered on 01/10/17 08:38 ; Admin Dose 30 MG; Start 01/10/17 at 09:00 Insulin Human NPH (Humulin N) 30 unit DAILY@20 SC Last administered on 19:40; Admin Dose 30 UNIT; Start 01/09/17 at 20:00 Insulin Glargine (Lantus) 46 unit DAILY@08 SC Last administered on 01/10/17 08:32; Admin Dose 46 UNIT; Start 01/10/17 at 08:00 TERRIE DUNN Jan 10, 2017 17:17
--- NOTE | 2017-01-10 17:23 | CONS ---
Date/Time of Note Date/Time of Note DATE: 01/10/17 TIME: 17:17 Assessment/Plan Assessment/Plan Additional Assessment/Plan Chest x-ray was reviewed from of this month which is showing mild pulmonary vascular congestion. Assessment and recommendations; 1. Patient admitted with shortness of breath due to mild pulmonary vascular congestion from diastolic dysfunction. 2. History of mild hypercapnic respiratory failure due to underlying obesity, possibly sleep apnea with obesity hypoventilation syndrome. 3. Renal insufficiency. 4. Systemic hypertension. 5. Prior history of coronary artery disease. 6. Diabetes. Continue current treatment. Obtain blood gas. Once ABG is done I will evaluate the patient for possible use of BiPAP. The patient also may qualify for home BiPAP based upon hypercapnia. Consultation Date/Type/Reason Admit Date/Time Jan 06, 2017 at 13:10 Date of Consultation: Jan 10, 2017 Type of Consultation: Pulmonary Reason for Consultation Pulmonary consultation requested for evaluation of shortness of breath. History of presenting illness; patient is a pleasant 76-year-old lady who came into the hospital on the of this month with a few days history of increasing shortness of breath. Upon evaluation a chest x-ray was done which is showing mild pulmonary vascular congestion. Patient has been started on intravenous Lasix with significant clinical improvement. The patient has a history of hypercapnic respiratory failure. And has a history of multiple admissions to the hospital. Patient currently denies any chest pain, fever, chills. Past medical history; 1. Patient with history of coronary artery disease status post intervention in the past. 2. Some element of diastolic dysfunction. 3. Possibly underlying sleep apnea. 4. Hypertension. 5. Diabetes. 6. History of renal insufficiency. Medications; reviewed. Allergies; none. Social history; patient does not smoke. Family history; various family members have hypertension and diabetes. 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 Review systems; denies any headache, visual changes. Any sinus symptoms. Shortness of breath has improved. Denies any chest pain or wheezing. Any coughing or sputum production. Denies any abdominal pain, nausea vomiting. Complains of chronic dyspnea on exertion. Complains of chronic orthopnea. Denies any edema. Denies any melena or hematochezia. Complains of loud snoring. General exam; elderly woman, morbidly obese, currently in no distress. Constitutional: requiring O2 Eyes: no complaints ENT: no complaints Respiratory: cough, shortness of breath Cardiovascular: edema, lightheadedness Gastrointestinal: no complaints Genitourinary: no complaints Musculoskeletal: no complaints Neurologic: no complaints Psychological: nl mood/affect, no complaints Past Medical History Medical History: congestive heart failure, coronary artery disease, diabetes, high cholesterol, hypertension, renal disease, other (glaucoma w/ B vision loss , anxiety, depression) Past Surgical History Past Surgical Hx: other (Ovarian cystectomy, BECKY, laser eye surgery) Social History Alcohol Use: none Smoking Status: Never smoker Drug Use: none Exam/Review of Systems Vital Signs Vitals Vital Signs Date Time Temp Pulse Resp B/P Pulse Ox O2 Delivery O2 Flow Rate FiO2 01/10/17 16:00 67 01/10/17 15:34 97.9 18 119/56 92 01/10/17 08:30 Nasal Cannula 2.0 Intake and Output 01/09/17 01/09/17 01/10/17 15:00 23:00 07:00 Intake Total 1200 ml 500 ml Output Total 1350 ml Balance -150 ml 500 ml Exam HEENT exam; supple neck, JVD difficult to see because of short neck. Pupils are midsize and reactive to light. No thyromegaly. No neck bruits. Chest exam; diminished breath sounds bilaterally. S1-S2 audible, no murmurs. Regular rhythm. Abdomen exam; soft, protuberant. Nontender. Bowel sounds audible. Extremity exam; no peripheral edema. Pulses 1+ bilaterally. No clubbing. 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 Results Result Diagram: 01/10/1780401/10/17804 Results 24 hrs Laboratory Tests Test 01/09/17 17:38 01/09/17 18:26 01/09/17 21:16 01/10/17 02:19 Bedside Glucose 504 *H 394 H 265 H Glucose Level 590 *H Test 01/10/17 08:05 01/10/17 08:28 01/10/17 11:46 White Blood Count 10.2 Red Blood Count 4.71 Hemoglobin 13.0 Hematocrit 41.6 Mean Corpuscular Volume 88.3 Mean Corpuscular Hemoglobin 27.6 L Mean Corpuscular Hemoglobin Concent 31.3 L Red Cell Distribution Width 15.3 H Platelet Count 298 Mean Platelet Volume 9.3 Neutrophils % 75.6 Lymphocytes % 14.6 L Monocytes % 6.5 Eosinophils % 2.3 Basophils % 0.4 Nucleated Red Blood Cells % 0.0 Neutrophils # 7.7 H Lymphocytes # 1.5 Monocytes # 0.7 Eosinophils # 0.2 Basophils # 0.0 Nucleated Red Blood Cells # 0.0 Sodium Level 137 Potassium Level 4.0 Chloride Level 92 L Carbon Dioxide Level 34 H Anion Gap 15 Blood Urea Nitrogen 29 H Creatinine 1.30 H Glucose Level 339 #H Calcium Level 9.1 Bedside Glucose 350 H 394 H Medications Medications Current Medications Ondansetron HCl (Zofran Inj) 4 mg Q6H PRN IV NAUSEA AND/OR VOMITING; Start at 16:00 Aspirin (Aspirin) 81 mg DAILY PO Last administered on 01/10/17 08:37; Admin Dose 81 MG; Start 01/07/17 at 09:00 Acetaminophen (Tylenol Tab) 650 mg Q6H PRN PO PAIN LEVEL 1-3 OR FEVER; Start 01/06/17 at 16:00 Morphine Sulfate (morphine) 2 mg Q4H PRN IV PAIN LEVEL 7-10; Start 01/06/17 at 16:00 Enoxaparin Sodium (Lovenox) 30 mg DAILY SC Last administered on 01/10/17 08: 36; Admin Dose 30 MG; Start 01/07/17 at 09:00 Miscellaneous Information 1 ea NOTE XX ; Start 01/06/17 at 21:00 Glucose (Glutose) 15 gm Q15M PRN PO DECREASED GLUCOSE; Start 01/06/17 at 21:00 Glucose (Glutose) 22.5 gm Q15M PRN PO DECREASED GLUCOSE; Start 01/06/17 at 21: 00 Dextrose (D50w Syringe) 25 ml Q15M PRN IV DECREASED GLUCOSE; Start 01/06/17 at 21:00 Dextrose (D50w Syringe) 50 ml Q15M PRN IV DECREASED GLUCOSE; Start 01/06/17 at 21:00 Glucagon (Glucagen) 1 mg Q15M PRN IM DECREASED GLUCOSE; Start 01/06/17 at 21: 00 Glucose (Glutose) 15 gm Q15M PRN BUCCAL DECREASED GLUCOSE; Start 01/06/17 at 21:00 Loratadine (Claritin) 10 mg DAILY PO Last administered on 01/10/17 08:37; Admin Dose 10 MG; Start 01/08/17 at 09:00 Hydralazine HCl (Apresoline) 25 mg Q8 PO Last administered on 01/10/17 14:57 ; Admin Dose 25 MG; Start 01/08/17 at 14:00 Metoprolol Succinate (Toprol Xl) 50 mg DAILY PO Last administered on 08:37; Admin Dose 50 MG; Start 01/08/17 at 15:00 Miscellaneous Information 1 each QAM PO ; Start 01/09/17 at 09:00; Status UNV Miscellaneous Information (*Order Clarification Bulletin) Empagliflozin/ Linagliptin (Glyxambi... Q8H XX ; Start 01/08/17 at 19:30 Diagnostic Test (Pha) (Accu-Chek) 1 ea 02 XX ; Start 01/09/17 at 02:00 Nifedipine (Procardia Xl) 30 mg DAILY PO Last administered on 01/10/17 08:38 ; Admin Dose 30 MG; Start 01/10/17 at 09:00 Insulin Human NPH (Humulin N) 30 unit DAILY@20 SC Last administered on 19:40; Admin Dose 30 UNIT; Start 01/09/17 at 20:00 Insulin Glargine (Lantus) 46 unit DAILY@08 SC Last administered on 01/10/17 08:32; Admin Dose 46 UNIT; Start 01/10/17 at 08:00 MIGUEL RIVERA Jan 10, 2017 17:22
--- NOTE | 2017-01-10 18:30 | CONS ---
Date/Time of Note Date/Time of Note DATE: 01/10/17 TIME: 18:26 Assessment/Plan Assessment/Plan Problems: (1) DM w/o complication type II, uncontrolled Status: Chronic Comment: Patient remains profoundly hyperglycemic. This despite resuming insulin doses that were highly successful last admission. Will raise all doses. Increase Lantus from 40-50 units every morning. Increase NPH from 30- 40 units every night. Increase NovoLog to 36 in the morning, 24 with lunch, and 20 with dinner. Will add linagliptin 5 mg p.o. daily and impacted with flows and 10 mg p.o. daily although I doubt either will be very effective in this patient Consultation Date/Type/Reason Admit Date/Time Jan 06, 2017 at 13:10 Initial Consult Date 01/10/17 Type of Consultation: Endocrinology Reason for Consultation Type 2 diabetes mellitus out of control Referring Provider: MADHU CAZARES 24 HR Interval Summary Constitutional: improved, no complaints, requiring O2 Detailed Summary Respiratory: no complaints, No cough, No shortness of breath Cardiovascular: no complaints, No orthopenea Gastrointestinal: no complaints Genitourinary: no complaints Musculoskeletal: no complaints Neurologic: no complaints Exam/Review of Systems Vital Signs Vitals VS - Last 72 Hours, by Label Date Time Temp Pulse Resp B/P Pulse Ox O2 Delivery O2 Flow Rate FiO2 01/10/17 16:00 67 01/10/17 15:34 97.9 69 18 119/56 92 01/10/17 12:00 62 01/10/17 11:22 97.8 64 18 124/62 99 01/10/17 08:30 Nasal Cannula 2.0 01/10/17 08:00 65 01/10/17 07:43 98.5 72 18 167/72 97 01/10/17 04:06 93 01/10/17 03:55 98.4 68 18 116/71 98 01/10/17 00:13 63 01/09/17 23:54 97.6 74 18 154/69 98 01/09/17 20:45 Nasal Cannula 3.0 01/09/17 20:00 64 01/09/17 19:59 Nasal Cannula 1.0 01/09/17 19:43 97.4 70 18 170/77 98 01/09/17 16:02 98.4 62 19 147/67 91 01/09/17 16:00 63 01/09/17 12:04 97.8 63 18 137/92 96 01/09/17 12:00 61 01/09/17 08:00 Nasal Cannula 1.0 01/09/17 08:00 61 01/09/17 07:53 97.8 75 17 157/72 95 01/09/17 04:21 65 01/09/17 04:00 97.8 67 18 149/69 97 01/09/17 00:21 67 01/08/17 23:59 98.6 70 18 118/76 94 01/08/17 20:15 64 01/08/17 20:00 Nasal Cannula 1.0 01/08/17 19:54 98.5 64 18 121/62 94 01/08/17 16:27 64 01/08/17 15:59 97.6 68 18 174/81 95 01/08/17 12:16 62 01/08/17 12:00 Nasal Cannula 1.0 01/08/17 11:44 98.0 68 22 171/72 92 01/08/17 08:18 75 01/08/17 08:03 98.3 77 22 162/70 93 01/08/17 08:00 Nasal Cannula 1.0 01/08/17 04:25 66 01/08/17 04:00 97.8 73 21 149/69 96 01/08/17 00:30 64 01/08/17 00:07 97.8 68 21 176/77 96 01/07/17 20:28 82 01/07/17 20:00 98.1 72 22 136/61 94 Vital Signs Date Time Temp Pulse Resp B/P Pulse Ox O2 Delivery O2 Flow Rate FiO2 01/10/17 16:00 67 01/10/17 15:34 97.9 18 119/56 92 01/10/17 08:30 Nasal Cannula 2.0 Intake and Output 01/09/17 01/09/17 01/10/17 15:00 23:00 07:00 Intake Total 1200 ml 500 ml Output Total 1350 ml Balance -150 ml 500 ml Exam Constitutional: alert, obese, oriented Psych: nl mood/affect, no complaints Respiratory: clear to auscultation, normal air movement Cardiovascular: nl pulses, regular rate and rhythm, No edema, No murmurs/extra sounds, No rub Gastrointestinal: bowel sounds, nl liver, spleen, non-tender, soft, No mass, No rebound or guarding Musculoskeletal: nl extremities to inspection Extremities: normal pulses, No clubbing, No cyanosis, No edema 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, nl mental status, nl speech, nl strength Additional Comments Bedside Glucose - 72 Hours Test 01/07/17 21:08 01/08/17 01:20 01/08/17 07:54 01/08/17 11:38 Bedside Glucose 293mg/dL (70-220) H 247mg/dL (70-220) H 303mg/dL (70-220) H 338mg/dL (70-220) H Test 01/08/17 17:10 01/08/17 21:15 01/09/17 05:20 01/09/17 08:35 Bedside Glucose 376mg/dL (70-220) H 447mg/dL (70-220) *H 389mg/dL (70-220) H 444mg/dL (70-220) *H Test 01/09/17 12:06 01/09/17 17:38 01/09/17 21:16 01/10/17 02:19 Bedside Glucose 435mg/dL (70-220) *H 504mg/dL (70-220) *H 394mg/dL (70-220) H 265mg/dL (70-220) H Test 01/10/17 08:28 01/10/17 11:46 01/10/17 17:41 Bedside Glucose 350mg/dL (70-220) H 394mg/dL (70-220) H 438mg/dL (70-220) *H Results Result Diagram: 01/10/1780401/10/17804 Results 24 hrs Laboratory Tests Test 01/09/17 21:16 01/10/17 02:19 01/10/17 08:05 01/10/17 08:28 Bedside Glucose 394 H 265 H 350 H White Blood Count 10.2 Red Blood Count 4.71 Hemoglobin 13.0 Hematocrit 41.6 Mean Corpuscular Volume 88.3 Mean Corpuscular Hemoglobin 27.6 L Mean Corpuscular Hemoglobin Concent 31.3 L Red Cell Distribution Width 15.3 H Platelet Count 298 Mean Platelet Volume 9.3 Neutrophils % 75.6 Lymphocytes % 14.6 L Monocytes % 6.5 Eosinophils % 2.3 Basophils % 0.4 Nucleated Red Blood Cells % 0.0 Neutrophils # 7.7 H Lymphocytes # 1.5 Monocytes # 0.7 Eosinophils # 0.2 Basophils # 0.0 Nucleated Red Blood Cells # 0.0 Sodium Level 137 Potassium Level 4.0 Chloride Level 92 L Carbon Dioxide Level 34 H Anion Gap 15 Blood Urea Nitrogen 29 H Creatinine 1.30 H Glucose Level 339 #H Calcium Level 9.1 Test 01/10/17 11:46 01/10/17 17:41 Bedside Glucose 394 H 438 *H Medications Medications Current Medications Ondansetron HCl (Zofran Inj) 4 mg Q6H PRN IV NAUSEA AND/OR VOMITING; Start at 16:00 Aspirin (Aspirin) 81 mg DAILY PO Last administered on 01/10/17 08:37; Admin Dose 81 MG; Start 01/07/17 at 09:00 Acetaminophen (Tylenol Tab) 650 mg Q6H PRN PO PAIN LEVEL 1-3 OR FEVER; Start 01/06/17 at 16:00 Morphine Sulfate (morphine) 2 mg Q4H PRN IV PAIN LEVEL 7-10; Start 01/06/17 at 16:00 Enoxaparin Sodium (Lovenox) 30 mg DAILY SC Last administered on 01/10/17 08: 36; Admin Dose 30 MG; Start 01/07/17 at 09:00 Miscellaneous Information 1 ea NOTE XX ; Start 01/06/17 at 21:00 Glucose (Glutose) 15 gm Q15M PRN PO DECREASED GLUCOSE; Start 01/06/17 at 21:00 Glucose (Glutose) 22.5 gm Q15M PRN PO DECREASED GLUCOSE; Start 01/06/17 at 21: 00 Dextrose (D50w Syringe) 25 ml Q15M PRN IV DECREASED GLUCOSE; Start 01/06/17 at 21:00 Dextrose (D50w Syringe) 50 ml Q15M PRN IV DECREASED GLUCOSE; Start 01/06/17 at 21:00 Glucagon (Glucagen) 1 mg Q15M PRN IM DECREASED GLUCOSE; Start 01/06/17 at 21: 00 Glucose (Glutose) 15 gm Q15M PRN BUCCAL DECREASED GLUCOSE; Start 01/06/17 at 21:00 Loratadine (Claritin) 10 mg DAILY PO Last administered on 01/10/17 08:37; Admin Dose 10 MG; Start 01/08/17 at 09:00 Hydralazine HCl (Apresoline) 25 mg Q8 PO Last administered on 01/10/17 14:57 ; Admin Dose 25 MG; Start 01/08/17 at 14:00 Metoprolol Succinate (Toprol Xl) 50 mg DAILY PO Last administered on 08:37; Admin Dose 50 MG; Start 01/08/17 at 15:00 Miscellaneous Information (*Order Clarification Bulletin) Empagliflozin/ Linagliptin (Glyxambi... Q8H XX ; Start 01/08/17 at 19:30 Diagnostic Test (Pha) (Accu-Chek) 1 ea 02 XX ; Start 01/09/17 at 02:00 Nifedipine (Procardia Xl) 30 mg DAILY PO Last administered on 01/10/17 08:38 ; Admin Dose 30 MG; Start 01/10/17 at 09:00 Insulin Glargine (Lantus) 50 unit DAILY@08 SC ; Start 01/11/17 at 08:00; Status UNV Insulin Human NPH (Humulin N) 40 unit DAILY@20 SC ; Start 01/10/17 at 20:00; Status UNV Empaglifozin (Jardiance) 10 mg DAILY@08 PO ; Start 01/11/17 at 08:00; Status UNV Linagliptin (Tradjenta) 5 mg DAILY PO ; Start 01/11/17 at 09:00; Status UNV TONY KELLY MD Jan 10, 2017 18:30
[2017-01-10 18:57] LABS: AADO2 Arterial 42.4 mmHg (7.0-24.0); Allen Test ACCEPTAB; Arterial Base Excess 3.7 mmol/L (-3.0-3); Arterial COHb 0.5 % (0.0-3.0); Arterial Fraction of Oxyhgb 95.6 % (93.0-99.0); Arterial HCO3 30.1 mmol/L (22.0-26.0); Arterial MetHb 0.3 % (0.0-1.5); Arterial Total Hemglobin 14.1 g/dl (12.0-18.0); MODE NASAL CANNULA
[2017-01-10] MEDS: NPH, HUMAN INSULIN ISOPHANE 3ML VIAL SC SCH (21:43)
[2017-01-11] VITALS (10 sets, daily range): BP systolic 129–169; BP diastolic 61–75; PULSE 59–84; RESP 18–20
[2017-01-11] MEDS: ACCU-CHEK XX SCH (02:00)
[2017-01-11] MEDS: EMPAGLIFLOZIN XX SCH ×2 (02:33→11:30)
[2017-01-11] MEDS: [UNRECOGNIZED DRUG - OTHER] XX SCH ×2 (02:33→11:30)
[2017-01-11] MEDS: LINAGLIPTIN XX SCH ×2 (02:33→11:30)
[2017-01-11] MEDS: FUROSEMIDE 20 MG INJ IV SCH ×2 (05:16→18:08)
[2017-01-11] MEDS ORDERED: INSULIN ASPART [NOVOLOG] 3 ML PEN SC SCH ×2 (07:30→11:30)
[2017-01-11] MEDS: INSULIN ASPART [NOVOLOG] 3 ML PEN SC SCH ×5 (08:13→20:45)
[2017-01-11] MEDS: ASPIRIN 81 MG TAB PO SCH (08:17)
[2017-01-11] MEDS: NIFEdipine (XL) 30 MG TAB PO SCH (08:17)
[2017-01-11] MEDS: EMPAGLIFLOZIN 10 MG TABLET PO SCH (08:17)
[2017-01-11] MEDS: METOPROLOL (XL) 50 MG TAB PO SCH (08:18)
[2017-01-11] MEDS: ENOXAPARIN 30 MG/0.3 ML SYG SC SCH (08:18)
[2017-01-11] MEDS: LORATADINE 10 MG TAB PO SCH (08:20)
[2017-01-11] MEDS: LINAGLIPTIN 5 MG TABLET PO SCH (08:22)
[2017-01-11] MEDS: INSULIN GLARGINE [LANtus] 3 ML PEN SC SCH (08:24)
[2017-01-11 11:02] LABS: BASOPHILS % 0.4 % (0.0-2.0); EOSINOPHILS # 0.3 10^3/ul (0.0-0.5); EOSINOPHILS % 2.9 % (0.0-7.0); HEMATOCRIT 43.1 % (37.0-47.0); HEMOGLOBIN 13.7 g/dl (12.0-16.0); LYMPHOCYTES # 1.4 10^3/ul (0.8-2.9); LYMPHOCYTES % 15.9 % (15.0-51.0); MEAN CORPUSCULAR HEMOGLOBIN 28.2 pg (29.0-33.0); MEAN CORPUSCULAR HGB CONC 31.8 g/dl (32.0-37.0); MEAN CORPUSCULAR VOLUME 88.9 fl (82.0-101.0); MEAN PLATELET VOLUME 9.3 fl (7.4-10.4); MONOCYTE # 0.6 10^3/ul (0.3-0.9); MONOCYTES % 6.1 % (0.0-11.0); NEUTROPHIL # 6.7 10^3/ul (1.6-7.5); NEUTROPHILS % 74.1 % (39.0-77.0); PLATELET COUNT 329 10^3/UL (140-415); RED BLOOD COUNT 4.85 10^6/ul (4.20-5.40); RED CELL DISTRIBUTION WIDTH 15.2 % (11.5-14.5)
[2017-01-11 11:37] LABS: CALCIUM 8.7 mg/dl (8.4-10.2); CREATININE 1.26 mg/dl (0.44-1.00)
--- NOTE | 2017-01-11 12:11 | CONS ---
Date/Time of Note Date/Time of Note DATE: 01/11/17 TIME: 12:09 Assessment/Plan Assessment/Plan Additional Assessment/Plan Assessment recommendations; 1. Patient admitted with shortness of breath due to mild pulmonary vascular congestion. 2. End-stage renal disease, on hemodialysis. 3. Morbid obesity. 4. Mild hypercapnic respiratory failure. 5. History of hypertension or diabetes. 6. Likely underlying sleep apnea. Continue current treatment. Patient would qualify for home BiPAP. I am going to have BiPAP ordered in hospital so the patient can get adjusted to it. Consultation Date/Type/Reason Admit Date/Time Jan 06, 2017 at 13:10 Initial Consult Date 01/10/17 Type of Consultation: Pulmonary Referring Provider: MADHU ACZARES 24 HR Interval Summary Free Text/Dictation Patient's condition is stable. Denies any shortness of breath. Denies any chest pain. Next General exam; elderly woman, morbidly obese, awake and alert. Currently in no distress. Exam/Review of Systems Vital Signs Vitals Vital Signs Date Time Temp Pulse Resp B/P Pulse Ox O2 Delivery O2 Flow Rate FiO2 01/11/17 11:36 98.6 71 18 141/65 98 01/11/17 03:38 2.0 01/10/17 20:19 Nasal Cannula Intake and Output 01/10/17 01/10/17 01/11/17 15:00 23:00 07:00 Intake Total 750 ml 500 ml Output Total 500 ml Balance 250 ml 500 ml Exam HEENT exam; supple neck, positive JVD. No lymphadenopathy. Midline trachea. No thyromegaly. Patient is edentulous. Pupils are midsize and reactive to light. Chest exam; diminished but clear breath sounds S1-S2 audible, no murmurs. Regular rhythm. Abdomen exam; soft, protuberant. No organomegaly. Bowel sounds audible. Extremity exam; no peripheral edema. 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 Results Result Diagram: 01/11/17 1043 01/11/17 1043 Results 24 hrs Laboratory Tests Test 01/10/17 17:23 01/10/17 17:41 01/10/17 20:51 01/11/17 02:25 Blood Gas Specimen Source Blood arterial Arterial Blood Date Drawn 01/10/2017 6:45:00 PM Arterial Blood pH (Temp corrected) 7.374 Arterial Blood pCO2 (Temp correct) 52.8 H Arterial Blood pO2 (Temp corrected) 87.7 Arterial Blood HCO3 30.1 H Arterial Blood Base Excess 3.7 H Arterial Blood Oxygen Saturation 96.4 [place] Test ACCEPTAB Arterial Blood Gas Puncture Site Right Radial Arterial Blood Carboxyhemoglobin 0.5 Arterial Blood Methemoglobin 0.3 Blood Gas A-a O2 Differential 42.4 H Oxyhemoglobin Percent 95.6 Total Hemoglobin 14.1 Blood Gas Temperature 37.0 Blood Gas Modality NASAL CANNULA FiO2 27.0 Blood Gas Notified Whom DT Blood Gas Notified Time 01/10/2017 6:57:00 PM Bedside Glucose 438 *H 359 H 289 H Test 01/11/17 08:11 01/11/17 10:43 01/11/17 11:32 Bedside Glucose 260 H 210 White Blood Count 9.0 Red Blood Count 4.85 Hemoglobin 13.7 Hematocrit 43.1 Mean Corpuscular Volume 88.9 Mean Corpuscular Hemoglobin 28.2 L Mean Corpuscular Hemoglobin Concent 31.8 L Red Cell Distribution Width 15.2 H Platelet Count 329 Mean Platelet Volume 9.3 Neutrophils % 74.1 Lymphocytes % 15.9 Monocytes % 6.1 Eosinophils % 2.9 Basophils % 0.4 Nucleated Red Blood Cells % 0.0 Neutrophils # 6.7 Lymphocytes # 1.4 Monocytes # 0.6 Eosinophils # 0.3 Basophils # 0.0 Nucleated Red Blood Cells # 0.0 Sodium Level 136 Potassium Level 4.0 Chloride Level 94 L Carbon Dioxide Level 30 Anion Gap 16 Blood Urea Nitrogen 34 H Creatinine 1.26 H Glucose Level 269 H Calcium Level 8.7 Medications Medications Current Medications Ondansetron HCl (Zofran Inj) 4 mg Q6H PRN IV NAUSEA AND/OR VOMITING; Start at 16:00 Aspirin (Aspirin) 81 mg DAILY PO Last administered on 01/11/17 08:17; Admin Dose 81 MG; Start 01/07/17 at 09:00 Acetaminophen (Tylenol Tab) 650 mg Q6H PRN PO PAIN LEVEL 1-3 OR FEVER; Start 01/06/17 at 16:00 Morphine Sulfate (morphine) 2 mg Q4H PRN IV PAIN LEVEL 7-10; Start 01/06/17 at 16:00 Enoxaparin Sodium (Lovenox) 30 mg DAILY SC Last administered on 01/11/17 08: 18; Admin Dose 30 MG; Start 01/07/17 at 09:00 Miscellaneous Information 1 ea NOTE XX ; Start 01/06/17 at 21:00 Glucose (Glutose) 15 gm Q15M PRN PO DECREASED GLUCOSE; Start 01/06/17 at 21:00 Glucose (Glutose) 22.5 gm Q15M PRN PO DECREASED GLUCOSE; Start 01/06/17 at 21: 00 Dextrose (D50w Syringe) 25 ml Q15M PRN IV DECREASED GLUCOSE; Start 01/06/17 at 21:00 Dextrose (D50w Syringe) 50 ml Q15M PRN IV DECREASED GLUCOSE; Start 01/06/17 at 21:00 Glucagon (Glucagen) 1 mg Q15M PRN IM DECREASED GLUCOSE; Start 01/06/17 at 21: 00 Glucose (Glutose) 15 gm Q15M PRN BUCCAL DECREASED GLUCOSE; Start 01/06/17 at 21:00 Loratadine (Claritin) 10 mg DAILY PO Last administered on 01/11/17 08:20; Admin Dose 10 MG; Start 01/08/17 at 09:00 Hydralazine HCl (Apresoline) 25 mg Q8 PO Last administered on 01/11/17 05:16 ; Admin Dose 25 MG; Start 01/08/17 at 14:00 Metoprolol Succinate (Toprol Xl) 50 mg DAILY PO Last administered on 08:18; Admin Dose 50 MG; Start 01/08/17 at 15:00 Miscellaneous Information (*Order Clarification Bulletin) Empagliflozin/ Linagliptin (Glyxambi... Q8H XX ; Start 01/08/17 at 19:30 Diagnostic Test (Pha) (Accu-Chek) 1 ea 02 XX ; Start 01/09/17 at 02:00 Nifedipine (Procardia Xl) 30 mg DAILY PO Last administered on 01/11/17 08:17 ; Admin Dose 30 MG; Start 01/10/17 at 09:00 Insulin Glargine (Lantus) 50 unit DAILY@08 SC Last administered on 01/11/17 08:24; Admin Dose 50 UNIT; Start 01/11/17 at 08:00 Insulin Human NPH (Humulin N) 40 unit DAILY@20 SC Last administered on 21:43; Admin Dose 40 UNIT; Start 01/10/17 at 20:00 Empaglifozin (Jardiance) 10 mg DAILY@08 PO Last administered on 01/11/17 08: 17; Admin Dose 10 MG; Start 01/11/17 at 08:00 Linagliptin (Tradjenta) 5 mg DAILY PO Last administered on 01/11/17 08:22; Admin Dose 5 MG; Start 01/11/17 at 09:00 MIGUEL RIVERA Jan 11, 2017 12:11
--- NOTE | 2017-01-11 17:58 | CONS ---
Date/Time of Note Date/Time of Note DATE: 01/11/17 TIME: 17:54 Assessment/Plan Assessment/Plan Chief Complaint/Hosp Course IMPRESSION: 1. Congestive heart failure exacerbation, diastolic, acute on chronic by most recent echo and stress test. 2. Hypertension-LABILE 3. Abnormal electrocardiogram with inferolateral T-wave inversions, assess for acute coronary syndrome with a negative stress test in July 2016.-negative trop x 3 4. Diabetes mellitus with uncontrolled BS 5. Chronic kidney disease/renal insufficiency. 6. Obesity. 7. delgado REcc: -Tele -serial ecg's -Contineu asa -Continue lasix diuresis -Continue BB/procardia and will make slight increase in hydralazine to improve BP -Follow BS clsoely -TO be ordered for home Bipap Problems: Consultation Date/Type/Reason Admit Date/Time Jan 06, 2017 at 13:10 Initial Consult Date 01/09/17 Type of Consultation: cardiology Reason for Consultation CHF Referring Provider: MADHU CAZARES Exam/Review of Systems Vital Signs Vitals Vital Signs Date Time Temp Pulse Resp B/P Pulse Ox O2 Delivery O2 Flow Rate FiO2 01/11/17 17:30 2.0 01/11/17 16:00 79 01/11/17 15:51 96.5 18 134/65 97 01/10/17 20:19 Nasal Cannula Intake and Output 01/10/17 01/10/17 01/11/17 15:00 23:00 07:00 Intake Total 750 ml 500 ml Output Total 500 ml Balance 250 ml 500 ml Exam Review of Systems: CONSTITUTIONAL: No fevers, chills. PULMONARY: mild sob CARDIOVASCULAR: No chest pain/palpitations GASTROINTESTINAL: No nausea/vomiting. GENITOURINARY: No hematuria/dysuria. MUSCULOSKELETAL: No myagias/arthalgias. PSYCHIATRIC: The patient denies depression. NEUROLOGIC: No weakness Constitutional: alert Psych: no complaints Head: normocephalic ENMT: mucosa pink and moist Neck: jvd (9 cm water), supple Respiratory: diminished breath sounds Cardiovascular: regular rate and rhythm Gastrointestinal: non-tender, soft Musculoskeletal: muscle tone Extremities: edema (none) Neurological: other (No focal deficits) Results Result Diagram: 01/11/17 1043 01/11/17 1043 Results 24 hrs Laboratory Tests Test 01/10/17 20:51 01/11/17 02:25 01/11/17 08:11 01/11/17 10:43 Bedside Glucose 359 H 289 H 260 H White Blood Count 9.0 Red Blood Count 4.85 Hemoglobin 13.7 Hematocrit 43.1 Mean Corpuscular Volume 88.9 Mean Corpuscular Hemoglobin 28.2 L Mean Corpuscular Hemoglobin Concent 31.8 L Red Cell Distribution Width 15.2 H Platelet Count 329 Mean Platelet Volume 9.3 Neutrophils % 74.1 Lymphocytes % 15.9 Monocytes % 6.1 Eosinophils % 2.9 Basophils % 0.4 Nucleated Red Blood Cells % 0.0 Neutrophils # 6.7 Lymphocytes # 1.4 Monocytes # 0.6 Eosinophils # 0.3 Basophils # 0.0 Nucleated Red Blood Cells # 0.0 Sodium Level 136 Potassium Level 4.0 Chloride Level 94 L Carbon Dioxide Level 30 Anion Gap 16 Blood Urea Nitrogen 34 H Creatinine 1.26 H Glucose Level 269 H Calcium Level 8.7 Test 01/11/17 11:32 Bedside Glucose 210 Medications Medications Current Medications Ondansetron HCl (Zofran Inj) 4 mg Q6H PRN IV NAUSEA AND/OR VOMITING; Start at 16:00 Aspirin (Aspirin) 81 mg DAILY PO Last administered on 01/11/17 08:17; Admin Dose 81 MG; Start 01/07/17 at 09:00 Acetaminophen (Tylenol Tab) 650 mg Q6H PRN PO PAIN LEVEL 1-3 OR FEVER; Start 01/06/17 at 16:00 Morphine Sulfate (morphine) 2 mg Q4H PRN IV PAIN LEVEL 7-10; Start 01/06/17 at 16:00 Enoxaparin Sodium (Lovenox) 30 mg DAILY SC Last administered on 01/11/17 08: 18; Admin Dose 30 MG; Start 01/07/17 at 09:00 Miscellaneous Information 1 ea NOTE XX ; Start 01/06/17 at 21:00 Glucose (Glutose) 15 gm Q15M PRN PO DECREASED GLUCOSE; Start 01/06/17 at 21:00 Glucose (Glutose) 22.5 gm Q15M PRN PO DECREASED GLUCOSE; Start 01/06/17 at 21: 00 Dextrose (D50w Syringe) 25 ml Q15M PRN IV DECREASED GLUCOSE; Start 01/06/17 at 21:00 Dextrose (D50w Syringe) 50 ml Q15M PRN IV DECREASED GLUCOSE; Start 01/06/17 at 21:00 Glucagon (Glucagen) 1 mg Q15M PRN IM DECREASED GLUCOSE; Start 01/06/17 at 21: 00 Glucose (Glutose) 15 gm Q15M PRN BUCCAL DECREASED GLUCOSE; Start 01/06/17 at 21:00 Loratadine (Claritin) 10 mg DAILY PO Last administered on 01/11/17 08:20; Admin Dose 10 MG; Start 01/08/17 at 09:00 Hydralazine HCl (Apresoline) 25 mg Q8 PO Last administered on 01/11/17 14:33 ; Admin Dose 25 MG; Start 01/08/17 at 14:00 Metoprolol Succinate (Toprol Xl) 50 mg DAILY PO Last administered on 08:18; Admin Dose 50 MG; Start 01/08/17 at 15:00 Diagnostic Test (Pha) (Accu-Chek) 1 ea 02 XX ; Start 01/09/17 at 02:00 Nifedipine (Procardia Xl) 30 mg DAILY PO Last administered on 01/11/17 08:17 ; Admin Dose 30 MG; Start 01/10/17 at 09:00 Insulin Glargine (Lantus) 50 unit DAILY@08 SC Last administered on 01/11/17 08:24; Admin Dose 50 UNIT; Start 01/11/17 at 08:00 Insulin Human NPH (Humulin N) 40 unit DAILY@20 SC Last administered on 21:43; Admin Dose 40 UNIT; Start 01/10/17 at 20:00 Empaglifozin (Jardiance) 10 mg DAILY@08 PO Last administered on 01/11/17 08: 17; Admin Dose 10 MG; Start 01/11/17 at 08:00 Linagliptin (Tradjenta) 5 mg DAILY PO Last administered on 01/11/17 08:22; Admin Dose 5 MG; Start 01/11/17 at 09:00 TERRIE DUNN Jan 11, 2017 17:58
--- NOTE | 2017-01-11 18:01 | CONS ---
Date/Time of Note Date/Time of Note DATE: 01/11/17 TIME: 17:57 Assessment/Plan Assessment/Plan Problems: (1) DM w/o complication type II, uncontrolled Status: Chronic Comment: FS improving. However, pt. reports FS was 69 mg/dL 2 hours ago. Did not call her nurse and instead ate without insulin. Now glucose 309 mg/dL. Will increase am Novolog from 36 to 40 units and decrease lunchtime dose from 24 to 20 units. Reeval tomorrow. Consultation Date/Type/Reason Admit Date/Time Jan 06, 2017 at 13:10 Initial Consult Date 01/10/17 Type of Consultation: endocrinology Reason for Consultation T2DM OOC Referring Provider: MADHU CAZARES 24 HR Interval Summary Constitutional: improved, no complaints Detailed Summary Respiratory: no complaints, No shortness of breath Cardiovascular: no complaints, No orthopenea Gastrointestinal: no complaints Genitourinary: no complaints Musculoskeletal: no complaints Neurologic: no complaints Exam/Review of Systems Vital Signs Vitals VS - Last 72 Hours, by Label Date Time Temp Pulse Resp B/P Pulse Ox O2 Delivery O2 Flow Rate FiO2 01/11/17 17:30 2.0 01/11/17 16:00 79 01/11/17 15:51 96.5 76 18 134/65 97 01/11/17 12:00 59 01/11/17 11:36 98.6 71 18 141/65 98 01/11/17 08:00 69 01/11/17 07:42 98.1 71 18 134/61 96 01/11/17 04:00 84 01/11/17 04:00 98.2 80 20 169/75 97 01/11/17 03:38 2.0 01/11/17 00:00 70 01/11/17 00:00 97.8 89 20 139/72 98 01/10/17 23:54 2.0 01/10/17 20:27 98.1 69 20 142/60 96 01/10/17 20:19 Nasal Cannula 2.0 01/10/17 20:00 67 01/10/17 16:00 67 01/10/17 15:34 97.9 69 18 119/56 92 01/10/17 12:00 62 01/10/17 11:22 97.8 64 18 124/62 99 01/10/17 08:30 Nasal Cannula 2.0 01/10/17 08:00 65 01/10/17 07:43 98.5 72 18 167/72 97 01/10/17 04:06 93 01/10/17 03:55 98.4 68 18 116/71 98 01/10/17 00:13 63 01/09/17 23:54 97.6 74 18 154/69 98 01/09/17 20:45 Nasal Cannula 3.0 01/09/17 20:00 64 01/09/17 19:59 Nasal Cannula 1.0 01/09/17 19:43 97.4 70 18 170/77 98 01/09/17 16:02 98.4 62 19 147/67 91 01/09/17 16:00 63 01/09/17 12:04 97.8 63 18 137/92 96 01/09/17 12:00 61 01/09/17 08:00 Nasal Cannula 1.0 01/09/17 08:00 61 01/09/17 07:53 97.8 75 17 157/72 95 01/09/17 04:21 65 01/09/17 04:00 97.8 67 18 149/69 97 01/09/17 00:21 67 01/08/17 23:59 98.6 70 18 118/76 94 01/08/17 20:15 64 01/08/17 20:00 Nasal Cannula 1.0 01/08/17 19:54 98.5 64 18 121/62 94 Vital Signs Date Time Temp Pulse Resp B/P Pulse Ox O2 Delivery O2 Flow Rate FiO2 01/11/17 17:30 2.0 01/11/17 16:00 79 01/11/17 15:51 96.5 18 134/65 97 01/10/17 20:19 Nasal Cannula Intake and Output 01/10/17 01/10/17 01/11/17 15:00 23:00 07:00 Intake Total 750 ml 500 ml Output Total 500 ml Balance 250 ml 500 ml Exam Constitutional: alert, obese, oriented Psych: nl mood/affect, no complaints Respiratory: clear to auscultation, normal air movement Cardiovascular: nl pulses, regular rate and rhythm, No edema, No murmurs/extra sounds, No rub Gastrointestinal: bowel sounds, nl liver, spleen, non-tender, soft, No mass, No rebound or guarding Musculoskeletal: nl extremities to inspection Extremities: normal pulses, No clubbing, No cyanosis, No edema Neurological: RAISIN WASHER II-XII intact, nl mental status, nl speech, nl strength Additional Comments Bedside Glucose - 72 Hours Test 01/08/17 21:15 01/09/17 05:20 01/09/17 08:35 01/09/17 12:06 Bedside Glucose 447mg/dL (70-220) *H 389mg/dL (70-220) H 444mg/dL (70-220) *H 435mg/dL (70-220) *H Test 01/09/17 17:38 01/09/17 21:16 01/10/17 02:19 01/10/17 08:28 Bedside Glucose 504mg/dL (70-220) *H 394mg/dL (70-220) H 265mg/dL (70-220) H 350mg/dL (70-220) H Test 01/10/17 11:46 01/10/17 17:41 01/10/17 20:51 01/11/17 02:25 Bedside Glucose 394mg/dL (70-220) H 438mg/dL (70-220) *H 359mg/dL (70-220) H 289mg/dL (70-220) H Test 01/11/17 08:11 01/11/17 11:32 01/11/17 17:56 Bedside Glucose 260mg/dL (70-220) H 210mg/dL (70-220) 309mg/dL (70-220) H Results Result Diagram: 01/11/17 1043 01/11/17 1043 Results 24 hrs Laboratory Tests Test 01/10/17 20:51 01/11/17 02:25 01/11/17 08:11 01/11/17 10:43 Bedside Glucose 359 H 289 H 260 H White Blood Count 9.0 Red Blood Count 4.85 Hemoglobin 13.7 Hematocrit 43.1 Mean Corpuscular Volume 88.9 Mean Corpuscular Hemoglobin 28.2 L Mean Corpuscular Hemoglobin Concent 31.8 L Red Cell Distribution Width 15.2 H Platelet Count 329 Mean Platelet Volume 9.3 Neutrophils % 74.1 Lymphocytes % 15.9 Monocytes % 6.1 Eosinophils % 2.9 Basophils % 0.4 Nucleated Red Blood Cells % 0.0 Neutrophils # 6.7 Lymphocytes # 1.4 Monocytes # 0.6 Eosinophils # 0.3 Basophils # 0.0 Nucleated Red Blood Cells # 0.0 Sodium Level 136 Potassium Level 4.0 Chloride Level 94 L Carbon Dioxide Level 30 Anion Gap 16 Blood Urea Nitrogen 34 H Creatinine 1.26 H Glucose Level 269 H Calcium Level 8.7 Test 01/11/17 11:32 Bedside Glucose 210 Medications Medications Current Medications Ondansetron HCl (Zofran Inj) 4 mg Q6H PRN IV NAUSEA AND/OR VOMITING; Start at 16:00 Aspirin (Aspirin) 81 mg DAILY PO Last administered on 01/11/17 08:17; Admin Dose 81 MG; Start 01/07/17 at 09:00 Acetaminophen (Tylenol Tab) 650 mg Q6H PRN PO PAIN LEVEL 1-3 OR FEVER; Start 01/06/17 at 16:00 Morphine Sulfate (morphine) 2 mg Q4H PRN IV PAIN LEVEL 7-10; Start 01/06/17 at 16:00 Enoxaparin Sodium (Lovenox) 30 mg DAILY SC Last administered on 01/11/17 08: 18; Admin Dose 30 MG; Start 01/07/17 at 09:00 Miscellaneous Information 1 ea NOTE XX ; Start 01/06/17 at 21:00 Glucose (Glutose) 15 gm Q15M PRN PO DECREASED GLUCOSE; Start 01/06/17 at 21:00 Glucose (Glutose) 22.5 gm Q15M PRN PO DECREASED GLUCOSE; Start 01/06/17 at 21: 00 Dextrose (D50w Syringe) 25 ml Q15M PRN IV DECREASED GLUCOSE; Start 01/06/17 at 21:00 Dextrose (D50w Syringe) 50 ml Q15M PRN IV DECREASED GLUCOSE; Start 01/06/17 at 21:00 Glucagon (Glucagen) 1 mg Q15M PRN IM DECREASED GLUCOSE; Start 01/06/17 at 21: 00 Glucose (Glutose) 15 gm Q15M PRN BUCCAL DECREASED GLUCOSE; Start 01/06/17 at 21:00 Loratadine (Claritin) 10 mg DAILY PO Last administered on 01/11/17 08:20; Admin Dose 10 MG; Start 01/08/17 at 09:00 Hydralazine HCl (Apresoline) 25 mg Q8 PO Last administered on 01/11/17 14:33 ; Admin Dose 25 MG; Start 01/08/17 at 14:00 Metoprolol Succinate (Toprol Xl) 50 mg DAILY PO Last administered on 08:18; Admin Dose 50 MG; Start 01/08/17 at 15:00 Diagnostic Test (Pha) (Accu-Chek) 1 ea 02 XX ; Start 01/09/17 at 02:00 Nifedipine (Procardia Xl) 30 mg DAILY PO Last administered on 01/11/17 08:17 ; Admin Dose 30 MG; Start 01/10/17 at 09:00 Insulin Glargine (Lantus) 50 unit DAILY@08 SC Last administered on 01/11/17 08:24; Admin Dose 50 UNIT; Start 01/11/17 at 08:00 Insulin Human NPH (Humulin N) 40 unit DAILY@20 SC Last administered on 21:43; Admin Dose 40 UNIT; Start 01/10/17 at 20:00 Empaglifozin (Jardiance) 10 mg DAILY@08 PO Last administered on 01/11/17 08: 17; Admin Dose 10 MG; Start 01/11/17 at 08:00 Linagliptin (Tradjenta) 5 mg DAILY PO Last administered on 01/11/17 08:22; Admin Dose 5 MG; Start 01/11/17 at 09:00 TONY KELLY MD Jan 11, 2017 18:01
[2017-01-11] MEDS: NPH, HUMAN INSULIN ISOPHANE 3ML VIAL SC SCH (20:45)
--- NOTE | 2017-01-11 22:09 | PN ---
Date/Time of Note Date/Time of Note DATE: 01/11/17 TIME: 22:09 Assessment/Plan Lines/Catheters IV C[facility]ter Type (from [facility]): Saline Lock Urinary Cath still in place: No Assessment/Plan Assessment/Plan - Diastolic acute on chronic congestive heart failure exacerbation. Continue Lasix. Dr. Cota is following in cardiology consultation. Continue to monitor electrolytes. - Hypertension. - Diabetes mellitus type 2 with hemoglobin A1c 9.2. Continue Lantus and pre- meal NovoLog as well as NovoLog per mild algorithm sliding scale. Dr. Bartholomew is following in endocrinology consultation. - Acute on chronic kidney disease. Continue to monitor BUN and creatinine. - Possible sleep apnea, continue BiPAP per pulmonology. Dr. Bravo is asked to see patient in pulmonology consultation. - Hyperlipidemia. Continue statin. - Morbid obesity with BMI 56. Further recommendations based on clinical course. Plan of care discussed with Dr. Garza. Exam/Review of Systems Vital Signs Vitals Vital Signs Date Time Temp Pulse Resp B/P Pulse Ox O2 Delivery O2 Flow Rate FiO2 01/11/17 20:56 74 01/11/17 19:59 2.0 01/11/17 15:51 96.5 18 134/65 97 01/10/17 20:19 Nasal Cannula Intake and Output 01/10/17 01/10/17 01/11/17 14:59 22:59 06:59 Intake Total 750 ml 500 ml Output Total 500 ml Balance 250 ml 500 ml Results Result Diagram: 01/11/17 1043 01/11/17 1043 Results 24 hrs Laboratory Tests Test 01/11/17 02:25 01/11/17 08:11 01/11/17 10:43 01/11/17 11:32 Bedside Glucose 289 H 260 H 210 White Blood Count 9.0 Red Blood Count 4.85 Hemoglobin 13.7 Hematocrit 43.1 Mean Corpuscular Volume 88.9 Mean Corpuscular Hemoglobin 28.2 L Mean Corpuscular Hemoglobin Concent 31.8 L Red Cell Distribution Width 15.2 H Platelet Count 329 Mean Platelet Volume 9.3 Neutrophils % 74.1 Lymphocytes % 15.9 Monocytes % 6.1 Eosinophils % 2.9 Basophils % 0.4 Nucleated Red Blood Cells % 0.0 Neutrophils # 6.7 Lymphocytes # 1.4 Monocytes # 0.6 Eosinophils # 0.3 Basophils # 0.0 Nucleated Red Blood Cells # 0.0 Sodium Level 136 Potassium Level 4.0 Chloride Level 94 L Carbon Dioxide Level 30 Anion Gap 16 Blood Urea Nitrogen 34 H Creatinine 1.26 H Glucose Level 269 H Calcium Level 8.7 Test 01/11/17 17:56 01/11/17 20:42 Bedside Glucose 309 H 342 H Medications Medications Current Medications Ondansetron HCl (Zofran Inj) 4 mg Q6H PRN IV NAUSEA AND/OR VOMITING; Start at 16:00 Aspirin (Aspirin) 81 mg DAILY PO Last administered on 01/11/17 08:17; Admin Dose 81 MG; Start 01/07/17 at 09:00 Acetaminophen (Tylenol Tab) 650 mg Q6H PRN PO PAIN LEVEL 1-3 OR FEVER; Start 01/06/17 at 16:00 Morphine Sulfate (morphine) 2 mg Q4H PRN IV PAIN LEVEL 7-10; Start 01/06/17 at 16:00 Enoxaparin Sodium (Lovenox) 30 mg DAILY SC Last administered on 01/11/17 08: 18; Admin Dose 30 MG; Start 01/07/17 at 09:00 Miscellaneous Information 1 ea NOTE XX ; Start 01/06/17 at 21:00 Glucose (Glutose) 15 gm Q15M PRN PO DECREASED GLUCOSE; Start 01/06/17 at 21:00 Glucose (Glutose) 22.5 gm Q15M PRN PO DECREASED GLUCOSE; Start 01/06/17 at 21: 00 Dextrose (D50w Syringe) 25 ml Q15M PRN IV DECREASED GLUCOSE; Start 01/06/17 at 21:00 Dextrose (D50w Syringe) 50 ml Q15M PRN IV DECREASED GLUCOSE; Start 01/06/17 at 21:00 Glucagon (Glucagen) 1 mg Q15M PRN IM DECREASED GLUCOSE; Start 01/06/17 at 21: 00 Glucose (Glutose) 15 gm Q15M PRN BUCCAL DECREASED GLUCOSE; Start 01/06/17 at 21:00 Loratadine (Claritin) 10 mg DAILY PO Last administered on 01/11/17 08:20; Admin Dose 10 MG; Start 01/08/17 at 09:00 Hydralazine HCl (Apresoline) 25 mg Q8 PO Last administered on 01/11/17 21:53 ; Admin Dose 25 MG; Start 01/08/17 at 14:00 Metoprolol Succinate (Toprol Xl) 50 mg DAILY PO Last administered on 08:18; Admin Dose 50 MG; Start 01/08/17 at 15:00 Diagnostic Test (Pha) (Accu-Chek) 1 ea 02 XX ; Start 01/09/17 at 02:00 Nifedipine (Procardia Xl) 30 mg DAILY PO Last administered on 01/11/17 08:17 ; Admin Dose 30 MG; Start 01/10/17 at 09:00 Insulin Glargine (Lantus) 50 unit DAILY@08 SC Last administered on 01/11/17 08:24; Admin Dose 50 UNIT; Start 01/11/17 at 08:00 Insulin Human NPH (Humulin N) 40 unit DAILY@20 SC Last administered on 20:45; Admin Dose 40 UNIT; Start 01/10/17 at 20:00 Empaglifozin (Jardiance) 10 mg DAILY@08 PO Last administered on 01/11/17 08: 17; Admin Dose 10 MG; Start 01/11/17 at 08:00 Linagliptin (Tradjenta) 5 mg DAILY PO Last administered on 01/11/17 08:22; Admin Dose 5 MG; Start 01/11/17 at 09:00 ENRRIQUE AGUILAR Jan 11, 2017 22:09
--- NOTE | 2017-01-11 23:57 | RADRPT ---
PROCEDURE: XR Chest. CLINICAL INDICATION: Shortness of breath. TECHNIQUE: Single frontal view. COMPARISON: 01/06/2017. FINDINGS: There is interstitial disease bilaterally consistent with pulmonary edema, unchanged. The lungs are otherwise clear. The heart is enlarged. There is calcification in the aorta consistent with atherosclerosis. There is no pleural effusion. There is no pneumothorax. IMPRESSION: 1. Interstitial pulmonary edema, unchanged. 2. Cardiomegaly and atherosclerosis. RPTAT: QQ .Uri Ley MD, MD Date Time Electronically viewed and signed by .Uri Ley MD, MD on 01/11/2017 23:57 .R/
[2017-01-12] VITALS (12 sets, daily range): BP systolic 142–184; BP diastolic 58–77; PULSE 66–73; RESP 18–20
[2017-01-12] MEDS: ACCU-CHEK XX SCH (02:23)
[2017-01-12] MEDS: FUROSEMIDE 20 MG INJ IV SCH ×2 (05:16→17:22)
[2017-01-12] MEDS ORDERED: INSULIN ASPART [NOVOLOG] 3 ML PEN SC SCH (07:30)
[2017-01-12] MEDS: ASPIRIN 81 MG TAB PO SCH (08:28)
[2017-01-12] MEDS: METOPROLOL (XL) 50 MG TAB PO SCH (08:28)
[2017-01-12] MEDS: LINAGLIPTIN 5 MG TABLET PO SCH (08:28)
[2017-01-12] MEDS: LORATADINE 10 MG TAB PO SCH (08:29)
[2017-01-12] MEDS: NIFEdipine (XL) 30 MG TAB PO SCH ×2 (08:29→21:56)
[2017-01-12] MEDS: EMPAGLIFLOZIN 10 MG TABLET PO SCH (08:29)
[2017-01-12] MEDS: ENOXAPARIN 30 MG/0.3 ML SYG SC SCH (08:30)
[2017-01-12] MEDS: INSULIN ASPART [NOVOLOG] 3 ML PEN SC SCH ×6 (08:42→21:00)
[2017-01-12] MEDS: INSULIN GLARGINE [LANtus] 3 ML PEN SC SCH (08:47)
[2017-01-12 08:51] LABS: BASOPHIL # 0.1 10^3/ul (0.0-0.1); BASOPHILS % 0.5 % (0.0-2.0); EOSINOPHILS # 0.2 10^3/ul (0.0-0.5); EOSINOPHILS % 2.5 % (0.0-7.0); HEMATOCRIT 44.4 % (37.0-47.0); HEMOGLOBIN 13.8 g/dl (12.0-16.0); LYMPHOCYTES # 1.5 10^3/ul (0.8-2.9); LYMPHOCYTES % 16.2 % (15.0-51.0); MEAN CORPUSCULAR HEMOGLOBIN 27.9 pg (29.0-33.0); MEAN CORPUSCULAR HGB CONC 31.1 g/dl (32.0-37.0); MEAN CORPUSCULAR VOLUME 89.9 fl (82.0-101.0); MEAN PLATELET VOLUME 9.3 fl (7.4-10.4); MONOCYTE # 0.6 10^3/ul (0.3-0.9); MONOCYTES % 6.4 % (0.0-11.0); NEUTROPHIL # 6.8 10^3/ul (1.6-7.5); PLATELET COUNT 305 10^3/UL (140-415); RED BLOOD COUNT 4.94 10^6/ul (4.20-5.40); RED CELL DISTRIBUTION WIDTH 15.5 % (11.5-14.5); WHITE BLOOD COUNT 9.2 10^3/ul (4.8-10.8)
[2017-01-12 09:13] LABS: CREATININE 1.23 mg/dl (0.44-1.00); POTASSIUM 3.9 mmol/L (3.5-5.1)
--- NOTE | 2017-01-12 10:42 | CONS ---
Date/Time of Note Date/Time of Note DATE: 01/12/17 TIME: 10:39 Assessment/Plan Assessment/Plan Additional Assessment/Plan Assessment and recommendations; 1. Patient admitted with shortness of breath due to underlying morbid obesity with likely underlying sleep apnea and obesity/hypoventilation syndrome. 2. Mild hypercapnia. 3. Chronic renal failure, on hemodialysis. 4. History of diabetes and hypertension. 5. Mild pulmonary edema. Continue current supportive care. Patient be started on BiPAP. Would qualify for home BiPAP based upon hypercapnic respiratory failure. Patient also would benefit from performing a sleep study as well. Consultation Date/Type/Reason Admit Date/Time Jan 06, 2017 at 13:10 Initial Consult Date 01/10/17 Type of Consultation: Pulmonary Referring Provider: MADHU CAZARES 24 HR Interval Summary Free Text/Dictation Patient's condition is stable. Denies any shortness of breath, chest pain, wheezing. General exam; elderly woman, morbidly obese, currently in no distress. Awake and alert. Exam/Review of Systems Vital Signs Vitals Vital Signs Date Time Temp Pulse Resp B/P Pulse Ox O2 Delivery O2 Flow Rate FiO2 01/12/17 08:02 98.0 98 18 142/61 98 01/12/17 01:34 2.0 01/11/17 20:45 Nasal Cannula Intake and Output 01/11/17 01/11/17 01/12/17 15:00 23:00 07:00 Intake Total 350 ml 450 ml Output Total 1400 ml Balance 350 ml -950 ml Exam HEENT exam; supple neck, no JVD. No lymphadenopathy. Midline trachea. No thyromegaly. Pharynx is clear. Patient is edentulous. Pupils are small bilaterally. Chest exam; diminished but clear breath sounds. S1-S2 audible, no murmurs. Regular rhythm. Abdomen exam; soft, protuberant. Nontender. No organomegaly. Bowel sounds audible. Extremity exam; no peripheral edema. AUTOMATION TENDER exam; no focal deficit. Results Result Diagram: 01/12/17 0721 01/12/17 0721 Results 24 hrs Laboratory Tests Test 01/11/17 10:43 01/11/17 11:32 01/11/17 17:56 01/11/17 20:42 White Blood Count 9.0 Red Blood Count 4.85 Hemoglobin 13.7 Hematocrit 43.1 Mean Corpuscular Volume 88.9 Mean Corpuscular Hemoglobin 28.2 L Mean Corpuscular Hemoglobin Concent 31.8 L Red Cell Distribution Width 15.2 H Platelet Count 329 Mean Platelet Volume 9.3 Neutrophils % 74.1 Lymphocytes % 15.9 Monocytes % 6.1 Eosinophils % 2.9 Basophils % 0.4 Nucleated Red Blood Cells % 0.0 Neutrophils # 6.7 Lymphocytes # 1.4 Monocytes # 0.6 Eosinophils # 0.3 Basophils # 0.0 Nucleated Red Blood Cells # 0.0 Sodium Level 136 Potassium Level 4.0 Chloride Level 94 L Carbon Dioxide Level 30 Anion Gap 16 Blood Urea Nitrogen 34 H Creatinine 1.26 H Glucose Level 269 H Calcium Level 8.7 Bedside Glucose 210 309 H 342 H Test 01/12/17 02:07 01/12/17 07:21 01/12/17 08:26 Bedside Glucose 219 286 H White Blood Count 9.2 Red Blood Count 4.94 Hemoglobin 13.8 Hematocrit 44.4 Mean Corpuscular Volume 89.9 Mean Corpuscular Hemoglobin 27.9 L Mean Corpuscular Hemoglobin Concent 31.1 L Red Cell Distribution Width 15.5 H Platelet Count 305 Mean Platelet Volume 9.3 Neutrophils % 74.0 Lymphocytes % 16.2 Monocytes % 6.4 Eosinophils % 2.5 Basophils % 0.5 Nucleated Red Blood Cells % 0.0 Neutrophils # 6.8 Lymphocytes # 1.5 Monocytes # 0.6 Eosinophils # 0.2 Basophils # 0.1 Nucleated Red Blood Cells # 0.0 Sodium Level 142 Potassium Level 3.9 Chloride Level 96 L Carbon Dioxide Level 31 Anion Gap 19 H Blood Urea Nitrogen 39 H Creatinine 1.23 H Glucose Level 220 Calcium Level 9.0 Medications Medications Current Medications Ondansetron HCl (Zofran Inj) 4 mg Q6H PRN IV NAUSEA AND/OR VOMITING; Start at 16:00 Aspirin (Aspirin) 81 mg DAILY PO Last administered on 01/12/17t 08:28; Admin Dose 81 MG; Start 01/07/17 at 09:00 Acetaminophen (Tylenol Tab) 650 mg Q6H PRN PO PAIN LEVEL 1-3 OR FEVER; Start 01/06/17 at 16:00 Morphine Sulfate (morphine) 2 mg Q4H PRN IV PAIN LEVEL 7-10; Start 01/06/17 at 16:00 Enoxaparin Sodium (Lovenox) 30 mg DAILY SC Last administered on 01/12/17 08: 30; Admin Dose 30 MG; Start 01/07/17 at 09:00 Miscellaneous Information 1 ea NOTE XX ; Start 01/06/17 at 21:00 Glucose (Glutose) 15 gm Q15M PRN PO DECREASED GLUCOSE; Start 01/06/17 at 21:00 Glucose (Glutose) 22.5 gm Q15M PRN PO DECREASED GLUCOSE; Start 01/06/17 at 21: 00 Dextrose (D50w Syringe) 25 ml Q15M PRN IV DECREASED GLUCOSE; Start 01/06/17 at 21:00 Dextrose (D50w Syringe) 50 ml Q15M PRN IV DECREASED GLUCOSE; Start 01/06/17 at 21:00 Glucagon (Glucagen) 1 mg Q15M PRN IM DECREASED GLUCOSE; Start 01/06/17 at 21: 00 Glucose (Glutose) 15 gm Q15M PRN BUCCAL DECREASED GLUCOSE; Start 01/06/17 at 21:00 Loratadine (Claritin) 10 mg DAILY PO Last administered on 01/12/17 08:29; Admin Dose 10 MG; Start 01/08/17 at 09:00 Hydralazine HCl (Apresoline) 25 mg Q8 PO Last administered on 01/12/17 05:16 ; Admin Dose 25 MG; Start 01/08/17 at 14:00 Metoprolol Succinate (Toprol Xl) 50 mg DAILY PO Last administered on 08:28; Admin Dose 50 MG; Start 01/08/17 at 15:00 Diagnostic Test (Pha) (Accu-Chek) 1 ea 02 XX Last administered on 01/12/17 02 :23; Admin Dose 1 EA; Start 01/09/17 at 02:00 Nifedipine (Procardia Xl) 30 mg DAILY PO Last administered on 01/12/17 08:29 ; Admin Dose 30 MG; Start 01/10/17 at 09:00 Insulin Glargine (Lantus) 50 unit DAILY@08 SC Last administered on 01/12/17 08:47; Admin Dose 50 UNIT; Start 01/11/17 at 08:00 Empaglifozin (Jardiance) 10 mg DAILY@08 PO Last administered on 01/12/17 08: 29; Admin Dose 10 MG; Start 01/11/17 at 08:00 Linagliptin (Tradjenta) 5 mg DAILY PO Last administered on 01/12/17t 08:28; Admin Dose 5 MG; Start 01/11/17 at 09:00 Insulin Human NPH (Humulin N) 48 unit DAILY@20 SC ; Start 01/12/17 at 20:00 MIGUEL RIVERA Jan 12, 2017 10:41
--- NOTE | 2017-01-12 13:34 | CONS ---
Date/Time of Note Date/Time of Note DATE: 01/12/17 TIME: 13:30 Assessment/Plan Assessment/Plan Problems: (1) DM w/o complication type II, uncontrolled Status: Chronic Comment: Pt. again w/ increasing glucose overnight despite hs NPH. Will increase dose from 40 to 48 units and move from 1999 to 2200. Also w/ pre- lunch glucose in normal range but below goal. RN held pre-lunch insulin. Will have it given as directed but will decrease dose of am Novolog from 40 to 38 and reeval tomorrow. Consultation Date/Type/Reason Admit Date/Time Jan 06, 2017 at 13:10 Initial Consult Date 01/10/17 Type of Consultation: Endocrinology Reason for Consultation Type 2 Diabetes Mellitus, Out of control Referring Provider: MADHU CAZARES 24 HR Interval Summary Constitutional: improved, no complaints Detailed Summary Respiratory: no complaints Cardiovascular: no complaints Gastrointestinal: no complaints Genitourinary: no complaints Musculoskeletal: no complaints Neurologic: no complaints Exam/Review of Systems Vital Signs Vitals VS - Last 72 Hours, by Label Date Time Temp Pulse Resp B/P Pulse Ox O2 Delivery O2 Flow Rate FiO2 01/12/17 12:26 98.0 98 18 159/58 98 01/12/17 08:02 98.0 98 18 142/61 98 01/12/17 08:00 66 01/12/17 04:33 66 01/12/17 04:18 97.4 69 18 146/69 100 01/12/17 01:34 2.0 01/12/17 00:55 97.2 75 20 151/68 96 01/12/17 00:40 68 01/11/17 20:56 74 01/11/17 20:45 Nasal Cannula 2.0 01/11/17 20:38 98.3 71 18 129/61 96 Nasal Cannula 2.0 01/11/17 19:59 2.0 01/11/17 17:30 2.0 01/11/17 16:00 79 01/11/17 15:51 96.5 76 18 134/65 97 01/11/17 12:00 59 01/11/17 11:36 98.6 71 18 141/65 98 01/11/17 08:00 69 01/11/17 07:42 98.1 71 18 134/61 96 01/11/17 04:00 84 01/11/17 04:00 98.2 80 20 169/75 97 01/11/17 03:38 2.0 01/11/17 00:00 70 01/11/17 00:00 97.8 89 20 139/72 98 01/10/17 23:54 2.0 01/10/17 20:27 98.1 69 20 142/60 96 01/10/17 20:19 Nasal Cannula 2.0 01/10/17 20:00 67 01/10/17 16:00 67 01/10/17 15:34 97.9 69 18 119/56 92 01/10/17 12:00 62 01/10/17 11:22 97.8 64 18 124/62 99 01/10/17 08:30 Nasal Cannula 2.0 01/10/17 08:00 65 01/10/17 07:43 98.5 72 18 167/72 97 01/10/17 04:06 93 01/10/17 03:55 98.4 68 18 116/71 98 01/10/17 00:13 63 01/09/17 23:54 97.6 74 18 154/69 98 01/09/17 20:45 Nasal Cannula 3.0 01/09/17 20:00 64 01/09/17 19:59 Nasal Cannula 1.0 01/09/17 19:43 97.4 70 18 170/77 98 01/09/17 16:02 98.4 62 19 147/67 91 01/09/17 16:00 63 Vital Signs Date Time Temp Pulse Resp B/P Pulse Ox O2 Delivery O2 Flow Rate FiO2 01/12/17 12:26 98.0 98 18 159/58 98 01/12/17 01:34 2.0 01/11/17 20:45 Nasal Cannula Intake and Output 01/11/17 01/11/17 01/12/17 15:00 23:00 07:00 Intake Total 350 ml 450 ml Output Total 1400 ml Balance 350 ml -950 ml Exam Constitutional: alert, obese, oriented Psych: nl mood/affect, no complaints Respiratory: clear to auscultation, normal air movement Cardiovascular: nl pulses, regular rate and rhythm, No edema, No murmurs/extra sounds, No rub Gastrointestinal: bowel sounds, nl liver, spleen, non-tender, rebound or guarding, soft, No mass Musculoskeletal: nl extremities to inspection Extremities: normal pulses, No clubbing, No cyanosis, No edema 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, nl mental status, nl speech, nl strength Additional Comments Bedside Glucose - 72 Hours Test 01/09/17 17:38 01/09/17 21:16 01/10/17 02:19 01/10/17 08:28 Bedside Glucose 504mg/dL (70-220) *H 394mg/dL (70-220) H 265mg/dL (70-220) H 350mg/dL (70-220) H Test 01/10/17 11:46 01/10/17 17:41 01/10/17 20:51 01/11/17 02:25 Bedside Glucose 394mg/dL (70-220) H 438mg/dL (70-220) *H 359mg/dL (70-220) H 289mg/dL (70-220) H Test 01/11/17 08:11 01/11/17 11:32 01/11/17 17:56 01/11/17 20:42 Bedside Glucose 260mg/dL (70-220) H 210mg/dL (70-220) 309mg/dL (70-220) H 342mg/dL (70-220) H Test 01/12/17 02:07 01/12/17 08:26 01/12/17 12:49 Bedside Glucose 219mg/dL (70-220) 286mg/dL (70-220) H 82mg/dL (70-220) Results Result Diagram: 01/12/1772001/12/17 0721 Results 24 hrs Laboratory Tests Test 01/11/17 17:56 01/11/17 20:42 01/12/17 02:07 01/12/17 07:21 Bedside Glucose 309 H 342 H 219 White Blood Count 9.2 Red Blood Count 4.94 Hemoglobin 13.8 Hematocrit 44.4 Mean Corpuscular Volume 89.9 Mean Corpuscular Hemoglobin 27.9 L Mean Corpuscular Hemoglobin Concent 31.1 L Red Cell Distribution Width 15.5 H Platelet Count 305 Mean Platelet Volume 9.3 Neutrophils % 74.0 Lymphocytes % 16.2 Monocytes % 6.4 Eosinophils % 2.5 Basophils % 0.5 Nucleated Red Blood Cells % 0.0 Neutrophils # 6.8 Lymphocytes # 1.5 Monocytes # 0.6 Eosinophils # 0.2 Basophils # 0.1 Nucleated Red Blood Cells # 0.0 Sodium Level 142 Potassium Level 3.9 Chloride Level 96 L Carbon Dioxide Level 31 Anion Gap 19 H Blood Urea Nitrogen 39 H Creatinine 1.23 H Glucose Level 220 Calcium Level 9.0 Test 01/12/17 08:26 01/12/17 12:49 Bedside Glucose 286 H 82 Medications Medications Current Medications Ondansetron HCl (Zofran Inj) 4 mg Q6H PRN IV NAUSEA AND/OR VOMITING; Start at 16:00 Aspirin (Aspirin) 81 mg DAILY PO Last administered on 01/12/17 08:28; Admin Dose 81 MG; Start 01/07/17 at 09:00 Acetaminophen (Tylenol Tab) 650 mg Q6H PRN PO PAIN LEVEL 1-3 OR FEVER; Start 01/06/17 at 16:00 Morphine Sulfate (morphine) 2 mg Q4H PRN IV PAIN LEVEL 7-10; Start 01/06/17 at 16:00 Enoxaparin Sodium (Lovenox) 30 mg DAILY SC Last administered on 01/12/17 08: 30; Admin Dose 30 MG; Start 01/07/17 at 09:00 Miscellaneous Information 1 ea NOTE XX ; Start 01/06/17 at 21:00 Glucose (Glutose) 15 gm Q15M PRN PO DECREASED GLUCOSE; Start 01/06/17 at 21:00 Glucose (Glutose) 22.5 gm Q15M PRN PO DECREASED GLUCOSE; Start 01/06/17 at 21: 00 Dextrose (D50w Syringe) 25 ml Q15M PRN IV DECREASED GLUCOSE; Start 01/06/17 at 21:00 Dextrose (D50w Syringe) 50 ml Q15M PRN IV DECREASED GLUCOSE; Start 01/06/17 at 21:00 Glucagon (Glucagen) 1 mg Q15M PRN IM DECREASED GLUCOSE; Start 01/06/17 at 21: 00 Glucose (Glutose) 15 gm Q15M PRN BUCCAL DECREASED GLUCOSE; Start 01/06/17 at 21:00 Loratadine (Claritin) 10 mg DAILY PO Last administered on 01/12/17 08:29; Admin Dose 10 MG; Start 01/08/17 at 09:00 Hydralazine HCl (Apresoline) 25 mg Q8 PO Last administered on 01/12/17 05:16 ; Admin Dose 25 MG; Start 01/08/17 at 14:00 Metoprolol Succinate (Toprol Xl) 50 mg DAILY PO Last administered on 08:28; Admin Dose 50 MG; Start 01/08/17 at 15:00 Diagnostic Test (Pha) (Accu-Chek) 1 ea 02 XX Last administered on 01/12/17 02 :23; Admin Dose 1 EA; Start 01/09/17 at 02:00 Nifedipine (Procardia Xl) 30 mg DAILY PO Last administered on 01/12/17 08:29 ; Admin Dose 30 MG; Start 01/10/17 at 09:00 Insulin Glargine (Lantus) 50 unit DAILY@08 SC Last administered on 01/12/17 08:47; Admin Dose 50 UNIT; Start 01/11/17 at 08:00 Empaglifozin (Jardiance) 10 mg DAILY@08 PO Last administered on 01/12/17 08: 29; Admin Dose 10 MG; Start 01/11/17 at 08:00 Linagliptin (Tradjenta) 5 mg DAILY PO Last administered on 01/12/17 08:28; Admin Dose 5 MG; Start 01/11/17 at 09:00 Insulin Human NPH (Humulin N) 48 unit DAILY@20 SC ; Start 01/12/17 at 20:00 TONY KELLY MD Jan 12, 2017 13:34
--- NOTE | 2017-01-12 15:13 | CONS ---
Date/Time of Note Date/Time of Note DATE: 01/12/17 TIME: 15:11 Assessment/Plan Assessment/Plan Chief Complaint/Hosp Course IMPRESSION: 1. Congestive heart failure exacerbation, diastolic, acute on chronic by most recent echo and stress test. 2. Hypertension-LABILE 3. Abnormal electrocardiogram with inferolateral T-wave inversions, assess for acute coronary syndrome with a negative stress test in July 2016.-negative trop x 3 4. Diabetes mellitus with uncontrolled BS 5. Chronic kidney disease/renal insufficiency. 6. Obesity. 7. DAVID REcc: -Tele -serial ecg's -Contineu asa -Continue lasix diuresis -Continue BB/procardia and will make further increase in hydralazine to improve BP -Follow BS clsoely with ongoing adjustment of hypoglycemic agents -TO be ordered for home Bipap Problems: Consultation Date/Type/Reason Admit Date/Time Jan 06, 2017 at 13:10 Initial Consult Date 01/09/17 Type of Consultation: cardiology Reason for Consultation CHF Referring Provider: MADHU CAZARES Exam/Review of Systems Vital Signs Vitals Vital Signs Date Time Temp Pulse Resp B/P Pulse Ox O2 Delivery O2 Flow Rate FiO2 01/12/17 12:26 98.0 98 18 159/58 98 01/12/17 08:00 Nasal Cannula 2.0 Intake and Output 01/11/17 01/11/17 01/12/17 15:00 23:00 07:00 Intake Total 350 ml 450 ml Output Total 1400 ml Balance 350 ml -950 ml Exam Review of Systems: CONSTITUTIONAL: No fevers, chills. PULMONARY: No sob CARDIOVASCULAR: No chest pain/palpitations GASTROINTESTINAL: No nausea/vomiting. GENITOURINARY: No hematuria/dysuria. MUSCULOSKELETAL: No myagias/arthalgias. PSYCHIATRIC: The patient denies depression. NEUROLOGIC: No weakness Constitutional: alert Psych: no complaints Head: normocephalic ENMT: mucosa pink and moist Neck: jvd (9 cm water), supple Respiratory: clear to auscultation Cardiovascular: regular rate and rhythm Gastrointestinal: soft Extremities: pitting pedal edema (trace) Neurological: other (No focal deficits) Results Result Diagram: 01/12/17 0721 01/12/17 0721 Results 24 hrs Laboratory Tests Test 01/11/17 17:56 01/11/17 20:42 01/12/17 02:07 01/12/17 07:21 Bedside Glucose 309 H 342 H 219 White Blood Count 9.2 Red Blood Count 4.94 Hemoglobin 13.8 Hematocrit 44.4 Mean Corpuscular Volume 89.9 Mean Corpuscular Hemoglobin 27.9 L Mean Corpuscular Hemoglobin Concent 31.1 L Red Cell Distribution Width 15.5 H Platelet Count 305 Mean Platelet Volume 9.3 Neutrophils % 74.0 Lymphocytes % 16.2 Monocytes % 6.4 Eosinophils % 2.5 Basophils % 0.5 Nucleated Red Blood Cells % 0.0 Neutrophils # 6.8 Lymphocytes # 1.5 Monocytes # 0.6 Eosinophils # 0.2 Basophils # 0.1 Nucleated Red Blood Cells # 0.0 Sodium Level 142 Potassium Level 3.9 Chloride Level 96 L Carbon Dioxide Level 31 Anion Gap 19 H Blood Urea Nitrogen 39 H Creatinine 1.23 H Glucose Level 220 Calcium Level 9.0 Test 01/12/17 08:26 01/12/17 12:49 Bedside Glucose 286 H 82 Medications Medications Current Medications Ondansetron HCl (Zofran Inj) 4 mg Q6H PRN IV NAUSEA AND/OR VOMITING; Start at 16:00 Aspirin (Aspirin) 81 mg DAILY PO Last administered on 01/12/17 08:28; Admin Dose 81 MG; Start 01/07/17 at 09:00 Acetaminophen (Tylenol Tab) 650 mg Q6H PRN PO PAIN LEVEL 1-3 OR FEVER; Start 01/06/17 at 16:00 Morphine Sulfate (morphine) 2 mg Q4H PRN IV PAIN LEVEL 7-10; Start 01/06/17 at 16:00 Enoxaparin Sodium (Lovenox) 30 mg DAILY SC Last administered on 01/12/17 08: 30; Admin Dose 30 MG; Start 01/07/17 at 09:00 Miscellaneous Information 1 ea NOTE XX ; Start 01/06/17 at 21:00 Glucose (Glutose) 15 gm Q15M PRN PO DECREASED GLUCOSE; Start 01/06/17 at 21:00 Glucose (Glutose) 22.5 gm Q15M PRN PO DECREASED GLUCOSE; Start 01/06/17 at 21: 00 Dextrose (D50w Syringe) 25 ml Q15M PRN IV DECREASED GLUCOSE; Start 01/06/17 at 21:00 Dextrose (D50w Syringe) 50 ml Q15M PRN IV DECREASED GLUCOSE; Start 01/06/17 at 21:00 Glucagon (Glucagen) 1 mg Q15M PRN IM DECREASED GLUCOSE; Start 01/06/17 at 21: 00 Glucose (Glutose) 15 gm Q15M PRN BUCCAL DECREASED GLUCOSE; Start 01/06/17 at 21:00 Loratadine (Claritin) 10 mg DAILY PO Last administered on 01/12/17 08:29; Admin Dose 10 MG; Start 01/08/17 at 09:00 Hydralazine HCl (Apresoline) 25 mg Q8 PO Last administered on 01/12/17 13:31 ; Admin Dose 25 MG; Start 01/08/17 at 14:00 Metoprolol Succinate (Toprol Xl) 50 mg DAILY PO Last administered on 08:28; Admin Dose 50 MG; Start 01/08/17 at 15:00 Diagnostic Test (Pha) (Accu-Chek) 1 ea 02 XX Last administered on 01/12/17 02 :23; Admin Dose 1 EA; Start 01/09/17 at 02:00 Nifedipine (Procardia Xl) 30 mg DAILY PO Last administered on 01/12/17 08:29 ; Admin Dose 30 MG; Start 01/10/17 at 09:00 Insulin Glargine (Lantus) 50 unit DAILY@08 SC Last administered on 01/12/17 08:47; Admin Dose 50 UNIT; Start 01/11/17 at 08:00 Empaglifozin (Jardiance) 10 mg DAILY@08 PO Last administered on 01/12/17 08: 29; Admin Dose 10 MG; Start 01/11/17 at 08:00 Linagliptin (Tradjenta) 5 mg DAILY PO Last administered on 01/12/17 08:28; Admin Dose 5 MG; Start 01/11/17 at 09:00 Insulin Human NPH (Humulin N) 48 unit DAILY@22 SC ; Start 01/12/17 at 22:00 TERRIE DUNN Jan 12, 2017 15:13
--- NOTE | 2017-01-12 19:43 | PN ---
Date/Time of Note Date/Time of Note DATE: 01/12/17 TIME: 19:41 Assessment/Plan VTE Prophylaxis VTE Prophylaxis Intervention: SCD's Lines/Catheters IV [facility]from [facility] Urinary Cath still in place: No Assessment/Plan Chief Complaint/Hosp Course Patient remains hemodynamically stable, complains of shortness of breath on exertion, continues to episodes of elevated blood sugar. Assessment/Plan - Diastolic acute on chronic congestive heart failure exacerbation. Continue Lasix. Dr. Cota is following in cardiology consultation. Continue to monitor electrolytes. - Hypertension. - Diabetes mellitus type 2 with hemoglobin A1c 9.2. Continue Lantus and pre- meal NovoLog as well as NovoLog per mild algorithm sliding scale. Dr. Bartholomew is following in endocrinology consultation. - Acute on chronic kidney disease. Continue to monitor BUN and creatinine. - Possible sleep apnea, continue BiPAP per pulmonology. Dr. Bravo is asked to see patient in pulmonology consultation. - Hyperlipidemia. Continue statin. - Morbid obesity with BMI 56. Further recommendations based on clinical course. Plan of care discussed with Dr. Garza. Problems: Exam/Review of Systems Vital Signs Vitals Vital Signs Date Time Temp Pulse Resp B/P Pulse Ox O2 Delivery O2 Flow Rate FiO2 01/12/17 18:08 2.0 01/12/17 16:55 98.0 89 18 148/70 98 01/12/17 08:00 Nasal Cannula Intake and Output 01/11/17 01/11/17 01/12/17 15:00 23:00 07:00 Intake Total 350 ml 450 ml Output Total 1400 ml Balance 350 ml -950 ml Exam Constitutional: alert Head: normocephalic Neck: supple Respiratory: diminished breath sounds Cardiovascular: nl pulses, regular rate and rhythm Gastrointestinal: non-tender, soft Extremities: edema Results Result Diagram: 01/12/17 0721 01/12/17 0721 Results 24 hrs Laboratory Tests Test 01/11/17 20:42 01/12/17 02:07 01/12/17 07:21 01/12/17 08:26 Bedside Glucose 342 H 219 286 H White Blood Count 9.2 Red Blood Count 4.94 Hemoglobin 13.8 Hematocrit 44.4 Mean Corpuscular Volume 89.9 Mean Corpuscular Hemoglobin 27.9 L Mean Corpuscular Hemoglobin Concent 31.1 L Red Cell Distribution Width 15.5 H Platelet Count 305 Mean Platelet Volume 9.3 Neutrophils % 74.0 Lymphocytes % 16.2 Monocytes % 6.4 Eosinophils % 2.5 Basophils % 0.5 Nucleated Red Blood Cells % 0.0 Neutrophils # 6.8 Lymphocytes # 1.5 Monocytes # 0.6 Eosinophils # 0.2 Basophils # 0.1 Nucleated Red Blood Cells # 0.0 Sodium Level 142 Potassium Level 3.9 Chloride Level 96 L Carbon Dioxide Level 31 Anion Gap 19 H Blood Urea Nitrogen 39 H Creatinine 1.23 H Glucose Level 220 Calcium Level 9.0 Test 01/12/17 12:49 01/12/17 17:13 Bedside Glucose 82 122 Medications Medications Current Medications Ondansetron HCl (Zofran Inj) 4 mg Q6H PRN IV NAUSEA AND/OR VOMITING; Start at 16:00 Aspirin (Aspirin) 81 mg DAILY PO Last administered on 01/12/17 08:28; Admin Dose 81 MG; Start 01/07/17 at 09:00 Acetaminophen (Tylenol Tab) 650 mg Q6H PRN PO PAIN LEVEL 1-3 OR FEVER; Start 01/06/17 at 16:00 Morphine Sulfate (morphine) 2 mg Q4H PRN IV PAIN LEVEL 7-10; Start 01/06/17 at 16:00 Enoxaparin Sodium (Lovenox) 30 mg DAILY SC Last administered on 01/12/17 08: 30; Admin Dose 30 MG; Start 01/07/17 at 09:00 Miscellaneous Information 1 ea NOTE XX ; Start 01/06/17 at 21:00 Glucose (Glutose) 15 gm Q15M PRN PO DECREASED GLUCOSE; Start 01/06/17 at 21:00 Glucose (Glutose) 22.5 gm Q15M PRN PO DECREASED GLUCOSE; Start 01/06/17 at 21: 00 Dextrose (D50w Syringe) 25 ml Q15M PRN IV DECREASED GLUCOSE; Start 01/06/17 at 21:00 Dextrose (D50w Syringe) 50 ml Q15M PRN IV DECREASED GLUCOSE; Start 01/06/17 at 21:00 Glucagon (Glucagen) 1 mg Q15M PRN IM DECREASED GLUCOSE; Start 01/06/17 at 21: 00 Glucose (Glutose) 15 gm Q15M PRN BUCCAL DECREASED GLUCOSE; Start 01/06/17 at 21:00 Loratadine (Claritin) 10 mg DAILY PO Last administered on 01/12/17 08:29; Admin Dose 10 MG; Start 01/08/17 at 09:00 Hydralazine HCl (Apresoline) 25 mg Q8 PO Last administered on 01/12/17 13:31 ; Admin Dose 25 MG; Start 01/08/17 at 14:00 Metoprolol Succinate (Toprol Xl) 50 mg DAILY PO Last administered on 08:28; Admin Dose 50 MG; Start 01/08/17 at 15:00 Diagnostic Test (Pha) (Accu-Chek) 1 ea 02 XX Last administered on 01/12/17 02 :23; Admin Dose 1 EA; Start 01/09/17 at 02:00 Insulin Glargine (Lantus) 50 unit DAILY@08 SC Last administered on 01/12/17 08:47; Admin Dose 50 UNIT; Start 01/11/17 at 08:00 Empaglifozin (Jardiance) 10 mg DAILY@08 PO Last administered on 01/12/17 08: 29; Admin Dose 10 MG; Start 01/11/17 at 08:00 Linagliptin (Tradjenta) 5 mg DAILY PO Last administered on 01/12/17 08:28; Admin Dose 5 MG; Start 01/11/17 at 09:00 Insulin Human NPH (Humulin N) 48 unit DAILY@22 SC ; Start 01/12/17 at 22:00 Nifedipine (Procardia Xl) 30 mg BID PO ; Start 01/12/17 at 21:00 MADHU CAZARES Jan 12, 2017 19:43
[2017-01-12] MEDS ORDERED: NPH, HUMAN INSULIN ISOPHANE 3ML VIAL SC SCH ×2 (20:00→22:00)
[2017-01-13] VITALS (15 sets, daily range): BP systolic 130–162; BP diastolic 60–87; PULSE 66–96; RESP 18–20
[2017-01-13] MEDS: ACCU-CHEK XX SCH (02:00)
[2017-01-13] MEDS: FUROSEMIDE 20 MG INJ IV SCH ×2 (05:36→17:15)
[2017-01-13] MEDS: INSULIN ASPART [NOVOLOG] 3 ML PEN SC SCH ×7 (07:51→21:19)
[2017-01-13] MEDS: EMPAGLIFLOZIN 10 MG TABLET PO SCH (07:58)
[2017-01-13] MEDS: INSULIN GLARGINE [LANtus] 3 ML PEN SC SCH (08:00)
[2017-01-13] MEDS: ENOXAPARIN 30 MG/0.3 ML SYG SC SCH (08:01)
[2017-01-13] MEDS: ASPIRIN 81 MG TAB PO SCH (08:01)
[2017-01-13] MEDS: LORATADINE 10 MG TAB PO SCH (08:01)
[2017-01-13] MEDS: NIFEdipine (XL) 30 MG TAB PO SCH (08:02)
[2017-01-13] MEDS: LINAGLIPTIN 5 MG TABLET PO SCH (08:02)
[2017-01-13] MEDS: METOPROLOL (XL) 50 MG TAB PO SCH (08:02)
[2017-01-13 08:39] LABS: CALCIUM 9.7 mg/dl (8.4-10.2); CREATININE 1.31 mg/dl (0.44-1.00); POTASSIUM 4.7 mmol/L (3.5-5.1)
--- NOTE | 2017-01-13 09:44 | CONS ---
Date/Time of Note Date/Time of Note DATE: 01/13/17 TIME: 09:41 Assessment/Plan Assessment/Plan Problems: (1) DM w/o complication type II, uncontrolled Status: Chronic Comment: Marked improvement in glycemic control with current insulin doses. A.m. dose of NovoLog reduced slightly today. Will evaluate effectiveness of this tomorrow. Still with fasting hyperglycemia. Will increase at bedtime NPH from 48 to 56 units in this profoundly insulin resistant patient Consultation Date/Type/Reason Admit Date/Time Jan 06, 2017 at 13:10 Initial Consult Date 01/10/17 Type of Consultation: Endocrinology Reason for Consultation Type 2 diabetes mellitus out of control Referring Provider: MADHU CAZARES 24 HR Interval Summary Constitutional: improved, no complaints, requiring O2 Detailed Summary Respiratory: no complaints, No shortness of breath Cardiovascular: no complaints Gastrointestinal: no complaints Genitourinary: no complaints Musculoskeletal: no complaints Neurologic: no complaints Exam/Review of Systems Vital Signs Vitals VS - Last 72 Hours, by Label Date Time Temp Pulse Resp B/P Pulse Ox O2 Delivery O2 Flow Rate FiO2 01/13/17 08:20 78 01/13/17 08:09 97.0 54 18 132/63 98 01/13/17 05:17 2.0 01/13/17 04:31 70 01/13/17 04:00 97.7 80 20 152/87 98 01/13/17 03:59 70 97 30 01/13/17 01:26 96 97 30 01/13/17 00:26 2.0 01/13/17 00:08 66 01/13/17 00:00 98.5 76 20 158/68 94 01/12/17 21:45 Nasal Cannula 2.0 01/12/17 20:17 70 01/12/17 20:00 2.0 01/12/17 20:00 97.5 78 20 184/77 98 01/12/17 18:08 2.0 01/12/17 16:55 98.0 89 18 148/70 98 01/12/17 16:00 73 01/12/17 12:26 98.0 98 18 159/58 98 01/12/17 12:00 70 01/12/17 08:02 98.0 98 18 142/61 98 01/12/17 08:00 Nasal Cannula 2.0 01/12/17 08:00 66 01/12/17 04:33 66 01/12/17 04:18 97.4 69 18 146/69 100 01/12/17 01:34 2.0 01/12/17 00:55 97.2 75 20 151/68 96 01/12/17 00:40 68 01/11/17 20:56 74 01/11/17 20:45 Nasal Cannula 2.0 01/11/17 20:38 98.3 71 18 129/61 96 Nasal Cannula 2.0 01/11/17 19:59 2.0 01/11/17 17:30 2.0 01/11/17 16:00 79 01/11/17 15:51 96.5 76 18 134/65 97 01/11/17 12:00 59 01/11/17 11:36 98.6 71 18 141/65 98 01/11/17 08:00 69 01/11/17 07:42 98.1 71 18 134/61 96 01/11/17 04:00 84 01/11/17 04:00 98.2 80 20 169/75 97 01/11/17 03:38 2.0 01/11/17 00:00 70 01/11/17 00:00 97.8 89 20 139/72 98 01/10/17 23:54 2.0 01/10/17 20:27 98.1 69 20 142/60 96 01/10/17 20:19 Nasal Cannula 2.0 01/10/17 20:00 67 01/10/17 16:00 67 01/10/17 15:34 97.9 69 18 119/56 92 01/10/17 12:00 62 01/10/17 11:22 97.8 64 18 124/62 99 Vital Signs Date Time Temp Pulse Resp B/P Pulse Ox O2 Delivery O2 Flow Rate FiO2 01/13/17 08:20 78 01/13/17 08:09 97.0 18 132/63 98 01/13/17 05:17 2.0 01/13/17 03:59 30 01/12/17 21:45 Nasal Cannula Intake and Output 01/12/17 01/12/17 01/13/17 15:00 23:00 07:00 Intake Total 800 ml 500 ml Output Total 1500 ml 1500 ml Balance -700 ml -1000 ml Exam Constitutional: alert, obese, oriented Psych: nl mood/affect, no complaints Respiratory: clear to auscultation, normal air movement Cardiovascular: nl pulses, regular rate and rhythm, No edema, No murmurs/extra sounds, No rub Gastrointestinal: bowel sounds, nl liver, spleen, non-tender, soft, No mass, No rebound or guarding Musculoskeletal: nl extremities to inspection Extremities: normal pulses, No clubbing, No cyanosis, No edema 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, nl mental status, nl speech, nl strength Additional Comments Bedside Glucose - 72 Hours Test 01/10/17 11:46 01/10/17 17:41 01/10/17 20:51 01/11/17 02:25 Bedside Glucose 394mg/dL (70-220) H 438mg/dL (70-220) *H 359mg/dL (70-220) H 289mg/dL (70-220) H Test 01/11/17 08:11 01/11/17 11:32 01/11/17 17:56 01/11/17 20:42 Bedside Glucose 260mg/dL (70-220) H 210mg/dL (70-220) 309mg/dL (70-220) H 342mg/dL (70-220) H Test 01/12/17 02:07 01/12/17 08:26 01/12/17 12:49 01/12/17 17:13 Bedside Glucose 219mg/dL (70-220) 286mg/dL (70-220) H 82mg/dL (70-220) 122mg/dL (70-220) Test 01/12/17 21:59 01/13/17 07:47 Bedside Glucose 113mg/dL (70-220) 254mg/dL (70-220) H Results Result Diagram: 01/12/17 0721 01/13/17 0741 Results 24 hrs Laboratory Tests Test 01/12/17 12:49 01/12/17 17:13 01/12/17 21:59 01/13/17 07:41 Bedside Glucose 82 122 113 Sodium Level 142 Potassium Level 4.7 Chloride Level 93 L Carbon Dioxide Level 38 H Anion Gap 16 Blood Urea Nitrogen 36 H Creatinine 1.31 H Glucose Level 256 H Calcium Level 9.7 Test 01/13/17 07:47 Bedside Glucose 254 H Medications Medications Current Medications Ondansetron HCl (Zofran Inj) 4 mg Q6H PRN IV NAUSEA AND/OR VOMITING; Start at 16:00 Aspirin (Aspirin) 81 mg DAILY PO Last administered on 01/13/17 08:01; Admin Dose 81 MG; Start 01/07/17 at 09:00 Acetaminophen (Tylenol Tab) 650 mg Q6H PRN PO PAIN LEVEL 1-3 OR FEVER; Start 01/06/17 at 16:00 Morphine Sulfate (morphine) 2 mg Q4H PRN IV PAIN LEVEL 7-10; Start 01/06/17 at 16:00 Enoxaparin Sodium (Lovenox) 30 mg DAILY SC Last administered on 01/13/17 08: 01; Admin Dose 30 MG; Start 01/07/17 at 09:00 Miscellaneous Information 1 ea NOTE XX ; Start 01/06/17 at 21:00 Glucose (Glutose) 15 gm Q15M PRN PO DECREASED GLUCOSE; Start 01/06/17 at 21:00 Glucose (Glutose) 22.5 gm Q15M PRN PO DECREASED GLUCOSE; Start 01/06/17 at 21: 00 Dextrose (D50w Syringe) 25 ml Q15M PRN IV DECREASED GLUCOSE; Start 01/06/17 at 21:00 Dextrose (D50w Syringe) 50 ml Q15M PRN IV DECREASED GLUCOSE; Start 01/06/17 at 21:00 Glucagon (Glucagen) 1 mg Q15M PRN IM DECREASED GLUCOSE; Start 01/06/17 at 21: 00 Glucose (Glutose) 15 gm Q15M PRN BUCCAL DECREASED GLUCOSE; Start 01/06/17 at 21:00 Loratadine (Claritin) 10 mg DAILY PO Last administered on 01/13/17 08:01; Admin Dose 10 MG; Start 01/08/17 at 09:00 Hydralazine HCl (Apresoline) 25 mg Q8 PO Last administered on 01/13/17 05:36 ; Admin Dose 25 MG; Start 01/08/17 at 14:00 Metoprolol Succinate (Toprol Xl) 50 mg DAILY PO Last administered on 08:02; Admin Dose 50 MG; Start 01/08/17 at 15:00 Diagnostic Test (Pha) (Accu-Chek) 1 ea 02 XX Last administered on 01/12/17 02 :23; Admin Dose 1 EA; Start 01/09/17 at 02:00 Insulin Glargine (Lantus) 50 unit DAILY@08 SC Last administered on 01/13/17 08:00; Admin Dose 50 UNIT; Start 01/11/17 at 08:00 Empaglifozin (Jardiance) 10 mg DAILY@08 PO Last administered on 01/13/17 07: 58; Admin Dose 10 MG; Start 01/11/17 at 08:00 Linagliptin (Tradjenta) 5 mg DAILY PO Last administered on 01/13/17 08:02; Admin Dose 5 MG; Start 01/11/17 at 09:00 Nifedipine (Procardia Xl) 30 mg BID PO Last administered on 01/13/17 08:02; Admin Dose 30 MG; Start 01/12/17 at 21:00 Insulin Human NPH (Humulin N) 56 unit DAILY@22 SC ; Start 01/13/17 at 22:00 TONY KELLY MD Jan 13, 2017 09:44
--- NOTE | 2017-01-13 16:01 | CONS ---
Date/Time of Note Date/Time of Note DATE: 01/13/17 TIME: 15:59 Consult Date/Type/Reason Admit Date/Time Jan 06, 2017 at 13:10 Initial Consult Date 01/10/17 Type of Consultation: Pulm Ordering Provider: MADHU CAZARES Subjective No events Objective Vital Signs Date Time Temp Pulse Resp B/P Pulse Ox O2 Delivery O2 Flow Rate FiO2 01/13/17 15:27 97.7 78 18 162/71 97 01/13/17 08:00 Nasal Cannula 2.0 01/13/17 03:59 30 Intake and Output 01/12/17 01/12/17 01/13/17 15:00 23:00 07:00 Intake Total 800 ml 500 ml Output Total 1500 ml 1500 ml Balance -700 ml -1000 ml Exam HEENT: Neck supple; no JVD; no LAD CVS: RRR, S1 and S2 CHEST: Clear ABD: Soft, NT, + BS EXT: + edema Results/Medications Result Diagram: 01/12/17 0721 01/13/17 0741 Results 24 hrs Laboratory Tests Test 01/12/17 17:13 01/12/17 21:59 01/13/17 07:41 01/13/17 07:47 Bedside Glucose 122 113 254 H Sodium Level 142 Potassium Level 4.7 Chloride Level 93 L Carbon Dioxide Level 38 H Anion Gap 16 Blood Urea Nitrogen 36 H Creatinine 1.31 H Glucose Level 256 H Calcium Level 9.7 Test 01/13/17 11:44 Bedside Glucose 176 Medications Current Medications Ondansetron HCl (Zofran Inj) 4 mg Q6H PRN IV NAUSEA AND/OR VOMITING; Start at 16:00 Aspirin (Aspirin) 81 mg DAILY PO Last administered on 01/13/17 08:01; Admin Dose 81 MG; Start 01/07/17 at 09:00 Acetaminophen (Tylenol Tab) 650 mg Q6H PRN PO PAIN LEVEL 1-3 OR FEVER; Start 01/06/17 at 16:00 Morphine Sulfate (morphine) 2 mg Q4H PRN IV PAIN LEVEL 7-10; Start 01/06/17 at 16:00 Enoxaparin Sodium (Lovenox) 30 mg DAILY SC Last administered on 01/13/17 08: 01; Admin Dose 30 MG; Start 01/07/17 at 09:00 Miscellaneous Information 1 ea NOTE XX ; Start 01/06/17 at 21:00 Glucose (Glutose) 15 gm Q15M PRN PO DECREASED GLUCOSE; Start 01/06/17 at 21:00 Glucose (Glutose) 22.5 gm Q15M PRN PO DECREASED GLUCOSE; Start 01/06/17 at 21: 00 Dextrose (D50w Syringe) 25 ml Q15M PRN IV DECREASED GLUCOSE; Start 01/06/17 at 21:00 Dextrose (D50w Syringe) 50 ml Q15M PRN IV DECREASED GLUCOSE; Start 01/06/17 at 21:00 Glucagon (Glucagen) 1 mg Q15M PRN IM DECREASED GLUCOSE; Start 01/06/17 at 21: 00 Glucose (Glutose) 15 gm Q15M PRN BUCCAL DECREASED GLUCOSE; Start 01/06/17 at 21:00 Loratadine (Claritin) 10 mg DAILY PO Last administered on 01/13/17 08:01; Admin Dose 10 MG; Start 01/08/17 at 09:00 Hydralazine HCl (Apresoline) 25 mg Q8 PO Last administered on 01/13/17 13:30 ; Admin Dose 25 MG; Start 01/08/17 at 14:00 Metoprolol Succinate (Toprol Xl) 50 mg DAILY PO Last administered on 08:02; Admin Dose 50 MG; Start 01/08/17 at 15:00 Diagnostic Test (Pha) (Accu-Chek) 1 ea 02 XX Last administered on 01/12/17 02 :23; Admin Dose 1 EA; Start 01/09/17 at 02:00 Insulin Glargine (Lantus) 50 unit DAILY@08 SC Last administered on 01/13/17 08:00; Admin Dose 50 UNIT; Start 01/11/17 at 08:00 Empaglifozin (Jardiance) 10 mg DAILY@08 PO Last administered on 01/13/17 07: 58; Admin Dose 10 MG; Start 01/11/17 at 08:00 Linagliptin (Tradjenta) 5 mg DAILY PO Last administered on 01/13/17 08:02; Admin Dose 5 MG; Start 01/11/17 at 09:00 Nifedipine (Procardia Xl) 30 mg BID PO Last administered on 01/13/17 08:02; Admin Dose 30 MG; Start 01/12/17 at 21:00 Insulin Human NPH (Humulin N) 56 unit DAILY@22 SC ; Start 01/13/17 at 22:00 Assessment/Plan Additional Assessment/Plan IMP: 1. OHS/DAVID 2. CKD 3. Mild pulmonary edema. 4. DM RECS: 1. Minimize FiO2 2. Nocturnal BiPAP MANOJ FRANCO MD Jan 13, 2017 16:00
--- NOTE | 2017-01-13 17:16 | PN ---
Date/Time of Note Date/Time of Note DATE: 01/13/17 TIME: 17:15 Assessment/Plan VTE Prophylaxis VTE Prophylaxis Intervention: other Lines/Catheters IV Catheter Type (from Nrs): Saline Lock Urinary Cath still in place: No Assessment/Plan Assessment/Plan - Dyspnea pulmonary follows. remains on supplement oxygen by NC -continue BiPAP for sleep apnea, - Diastolic acute on chronic congestive heart failure exacerbation. Continue Lasix. Dr. Cota is following in cardiology consultation. Continue to monitor electrolytes. - Hypertension. - Diabetes mellitus type 2 with hemoglobin A1c 9.2. Continue Lantus and pre- meal NovoLog as well as NovoLog per mild algorithm sliding scale. Dr. Bartholomew is following in endocrinology consultation. - Acute on chronic kidney disease. Continue to monitor BUN and creatinine. - Possible sleep apnea, continue BiPAP per pulmonology. Dr. Bravo is asked to see patient in pulmonology consultation. - Hyperlipidemia. Continue statin. - Morbid obesity with BMI 56. Further recommendations based on clinical course. Plan of care discussed with Dr. Garza. Subjective 24 Hr Interval Summary Respiratory: shortness of breath Cardiovascular: no complaints Gastrointestinal: no complaints Genitourinary: no complaints Musculoskeletal: no complaints Exam/Review of Systems Vital Signs Vitals Vital Signs Date Time Temp Pulse Resp B/P Pulse Ox O2 Delivery O2 Flow Rate FiO2 01/13/17 16:19 2.0 01/13/17 16:19 75 01/13/17 15:27 97.7 18 162/71 97 01/13/17 08:00 Nasal Cannula 01/13/17 03:59 30 Intake and Output 01/12/17 01/12/17 01/13/17 15:00 23:00 07:00 Intake Total 800 ml 500 ml Output Total 1500 ml 1500 ml Balance -700 ml -1000 ml Exam Constitutional: alert, obese, oriented Respiratory: diminished breath sounds Cardiovascular: nl pulses Gastrointestinal: non-tender, soft Musculoskeletal: nl extremities to inspection Extremities: normal pulses Neurological: nl speech Results Result Diagram: 01/12/17 0721 01/13/17 0741 Results 24 hrs Laboratory Tests Test 01/12/17 21:59 01/13/17 07:41 01/13/17 07:47 01/13/17 11:44 Bedside Glucose 113 254 H 176 Sodium Level 142 Potassium Level 4.7 Chloride Level 93 L Carbon Dioxide Level 38 H Anion Gap 16 Blood Urea Nitrogen 36 H Creatinine 1.31 H Glucose Level 256 H Calcium Level 9.7 Test 01/13/17 17:05 Bedside Glucose 164 Medications Medications Current Medications Ondansetron HCl (Zofran Inj) 4 mg Q6H PRN IV NAUSEA AND/OR VOMITING; Start at 16:00 Aspirin (Aspirin) 81 mg DAILY PO Last administered on 01/13/17 08:01; Admin Dose 81 MG; Start 01/07/17 at 09:00 Acetaminophen (Tylenol Tab) 650 mg Q6H PRN PO PAIN LEVEL 1-3 OR FEVER; Start 01/06/17 at 16:00 Morphine Sulfate (morphine) 2 mg Q4H PRN IV PAIN LEVEL 7-10; Start 01/06/17 at 16:00 Enoxaparin Sodium (Lovenox) 30 mg DAILY SC Last administered on 01/13/17 08: 01; Admin Dose 30 MG; Start 01/07/17 at 09:00 Miscellaneous Information 1 ea NOTE XX ; Start 01/06/17 at 21:00 Glucose (Glutose) 15 gm Q15M PRN PO DECREASED GLUCOSE; Start 01/06/17 at 21:00 Glucose (Glutose) 22.5 gm Q15M PRN PO DECREASED GLUCOSE; Start 01/06/17 at 21: 00 Dextrose (D50w Syringe) 25 ml Q15M PRN IV DECREASED GLUCOSE; Start 01/06/17 at 21:00 Dextrose (D50w Syringe) 50 ml Q15M PRN IV DECREASED GLUCOSE; Start 01/06/17 at 21:00 Glucagon (Glucagen) 1 mg Q15M PRN IM DECREASED GLUCOSE; Start 01/06/17 at 21: 00 Glucose (Glutose) 15 gm Q15M PRN BUCCAL DECREASED GLUCOSE; Start 01/06/17 at 21:00 Loratadine (Claritin) 10 mg DAILY PO Last administered on 01/13/17 08:01; Admin Dose 10 MG; Start 01/08/17 at 09:00 Hydralazine HCl (Apresoline) 25 mg Q8 PO Last administered on 01/13/17 13:30 ; Admin Dose 25 MG; Start 01/08/17 at 14:00 Metoprolol Succinate (Toprol Xl) 50 mg DAILY PO Last administered on 08:02; Admin Dose 50 MG; Start 01/08/17 at 15:00 Diagnostic Test (Pha) (Accu-Chek) 1 ea 02 XX Last administered on 01/12/17 02 :23; Admin Dose 1 EA; Start 01/09/17 at 02:00 Insulin Glargine (Lantus) 50 unit DAILY@08 SC Last administered on 01/13/17 08:00; Admin Dose 50 UNIT; Start 01/11/17 at 08:00 Empaglifozin (Jardiance) 10 mg DAILY@08 PO Last administered on 01/13/17 07: 58; Admin Dose 10 MG; Start 01/11/17 at 08:00 Linagliptin (Tradjenta) 5 mg DAILY PO Last administered on 01/13/17 08:02; Admin Dose 5 MG; Start 01/11/17 at 09:00 Nifedipine (Procardia Xl) 30 mg BID PO Last administered on 01/13/17 08:02; Admin Dose 30 MG; Start 01/12/17 at 21:00 Insulin Human NPH (Humulin N) 56 unit DAILY@22 SC ; Start 01/13/17 at 22:00 ENRRIQUE AGUILAR Jan 13, 2017 17:16
--- NOTE | 2017-01-13 17:28 | CONS ---
Date/Time of Note Date/Time of Note DATE: 01/13/17 TIME: 17:24 Assessment/Plan Assessment/Plan Chief Complaint/Hosp Course IMPRESSION: 1. Congestive heart failure exacerbation, diastolic, acute on chronic by most recent echo and stress test. 2. Hypertension-LABILE still 3. Abnormal electrocardiogram with inferolateral T-wave inversions, assess for acute coronary syndrome with a negative stress test in July 2016.-negative trop x 3 4. Diabetes mellitus with uncontrolled BS 5. Chronic kidney disease/renal insufficiency. 6. Obesity. 7. DAVID REcc: -Tele -serial ecg's -Contineu asa -Continue lasix diuresis -Continue BB/procardia and follow-up BP with possible need to further increase to improve BP -Follow BS clsoely with ongoing adjustment of hypoglycemic agents -TO be ordered for home Bipap Problems: Consultation Date/Type/Reason Admit Date/Time Jan 06, 2017 at 13:10 Initial Consult Date 01/09/17 Type of Consultation: cardiology Reason for Consultation HTN/CHF Referring Provider: MADHU CAZARES Exam/Review of Systems Vital Signs Vitals Vital Signs Date Time Temp Pulse Resp B/P Pulse Ox O2 Delivery O2 Flow Rate FiO2 01/13/17 16:19 2.0 01/13/17 16:19 75 01/13/17 15:27 97.7 18 162/71 97 01/13/17 08:00 Nasal Cannula 01/13/17 03:59 30 Intake and Output 01/12/17 01/12/17 01/13/17 15:00 23:00 07:00 Intake Total 800 ml 500 ml Output Total 1500 ml 1500 ml Balance -700 ml -1000 ml Exam Review of Systems: CONSTITUTIONAL: No fevers, chills. PULMONARY: No sob CARDIOVASCULAR: No chest pain/palpitations GASTROINTESTINAL: No nausea/vomiting. GENITOURINARY: No hematuria/dysuria. MUSCULOSKELETAL: No myagias/arthalgias. PSYCHIATRIC: The patient denies depression. NEUROLOGIC: No weakness Constitutional: alert Psych: no complaints Head: normocephalic ENMT: mucosa pink and moist Neck: jvd (9 cm water), supple Respiratory: diminished breath sounds (at bases/B) Cardiovascular: regular rate and rhythm Gastrointestinal: non-tender, soft Musculoskeletal: muscle tone (normal) Extremities: edema (trace/B) Neurological: other (No focal deficits) Results Result Diagram: 10/20/17 0721 01/13/17 0741 Results 24 hrs Laboratory Tests Test 01/12/17 21:59 01/13/17 07:41 01/13/17 07:47 01/13/17 11:44 Bedside Glucose 113 254 H 176 Sodium Level 142 Potassium Level 4.7 Chloride Level 93 L Carbon Dioxide Level 38 H Anion Gap 16 Blood Urea Nitrogen 36 H Creatinine 1.31 H Glucose Level 256 H Calcium Level 9.7 Test 01/13/17 17:05 Bedside Glucose 164 Medications Medications Current Medications Ondansetron HCl (Zofran Inj) 4 mg Q6H PRN IV NAUSEA AND/OR VOMITING; Start at 16:00 Aspirin (Aspirin) 81 mg DAILY PO Last administered on 01/13/17 08:01; Admin Dose 81 MG; Start 01/07/17 at 09:00 Acetaminophen (Tylenol Tab) 650 mg Q6H PRN PO PAIN LEVEL 1-3 OR FEVER; Start 01/06/17 at 16:00 Morphine Sulfate (morphine) 2 mg Q4H PRN IV PAIN LEVEL 7-10; Start 01/06/17 at 16:00 Enoxaparin Sodium (Lovenox) 30 mg DAILY SC Last administered on 01/13/17 08: 01; Admin Dose 30 MG; Start 01/07/17 at 09:00 Miscellaneous Information 1 ea NOTE XX ; Start 01/06/17 at 21:00 Glucose (Glutose) 15 gm Q15M PRN PO DECREASED GLUCOSE; Start 01/06/17 at 21:00 Glucose (Glutose) 22.5 gm Q15M PRN PO DECREASED GLUCOSE; Start 01/06/17 at 21: 00 Dextrose (D50w Syringe) 25 ml Q15M PRN IV DECREASED GLUCOSE; Start 01/06/17 at 21:00 Dextrose (D50w Syringe) 50 ml Q15M PRN IV DECREASED GLUCOSE; Start 01/06/17 at 21:00 Glucagon (Glucagen) 1 mg Q15M PRN IM DECREASED GLUCOSE; Start 01/06/17 at 21: 00 Glucose (Glutose) 15 gm Q15M PRN BUCCAL DECREASED GLUCOSE; Start 01/06/17 at 21:00 Loratadine (Claritin) 10 mg DAILY PO Last administered on 01/13/17 08:01; Admin Dose 10 MG; Start 01/08/17 at 09:00 Hydralazine HCl (Apresoline) 25 mg Q8 PO Last administered on 01/13/17 13:30 ; Admin Dose 25 MG; Start 01/08/17 at 14:00 Metoprolol Succinate (Toprol Xl) 50 mg DAILY PO Last administered on 08:02; Admin Dose 50 MG; Start 01/08/17 at 15:00 Diagnostic Test (Pha) (Accu-Chek) 1 ea 02 XX Last administered on 01/12/17 02 :23; Admin Dose 1 EA; Start 01/09/17 at 02:00 Insulin Glargine (Lantus) 50 unit DAILY@08 SC Last administered on 01/13/17 08:00; Admin Dose 50 UNIT; Start 01/11/17 at 08:00 Empaglifozin (Jardiance) 10 mg DAILY@08 PO Last administered on 01/13/17 07: 58; Admin Dose 10 MG; Start 01/11/17 at 08:00 Linagliptin (Tradjenta) 5 mg DAILY PO Last administered on 01/13/17 08:02; Admin Dose 5 MG; Start 01/11/17 at 09:00 Nifedipine (Procardia Xl) 30 mg BID PO Last administered on 01/13/17 08:02; Admin Dose 30 MG; Start 01/12/17 at 21:00 Insulin Human NPH (Humulin N) 56 unit DAILY@22 SC ; Start 01/13/17 at 22:00 TERRIE DUNN Jan 13, 2017 17:28
--- NOTE | 2017-01-13 18:31 | CONS ---
Date/Time of Note Date/Time of Note DATE: 01/13/17 TIME: 17:55 Assessment/Plan Assessment/Plan Additional Assessment/Plan 1. acute on chronic renal faiulre 2. mild pul edema 3 . DAVID/OHS 4. CKD due to diabetic nephropathy 5 DM 6. Accelerated HTN Plan: Conitnue Lasix 20mg iV BID for diuresis Nifedipine 30mg PO BID for HTN management no need for renal US at this time Expecing Cr to imrpove will follow up Nocturnal BIPAP as per pulmonary Thanks for consultation, we will continue to follow up Consultation Date/Type/Reason Admit Date/Time Jan 06, 2017 at 13:10 Date of Consultation: Jan 13, 2017 Type of Consultation: NEPHROLOGY Reason for Consultation acute vs acute on chronic renal failure Referring Provider: OLIVIA KAPLAN MD Hx of Present Illness 76 F with 1. 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 Constitutional: improved, no complaints, requiring O2 Eyes: no complaints ENT: no complaints Respiratory: shortness of breath Cardiovascular: no complaints Gastrointestinal: no complaints Genitourinary: no complaints Musculoskeletal: no complaints Neurologic: no complaints Psychological: no complaints Past Medical History Medical History: congestive heart failure, coronary artery disease, diabetes, high cholesterol, hypertension, renal disease, other (glaucoma w/ B vision loss , anxiety, depression) Past Surgical History Past Surgical Hx: no surgical history, other (Ovarian cystectomy, BECKY, laser eye surgery) Family History Significant Family History: no pertinent family hx Social History Alcohol Use: none Smoking Status: Never smoker Drug Use: none Exam/Review of Systems Vital Signs Vitals Vital Signs Date Time Temp Pulse Resp B/P Pulse Ox O2 Delivery O2 Flow Rate FiO2 01/13/17 16:19 2.0 01/13/17 16:19 75 01/13/17 15:27 97.7 18 162/71 97 01/13/17 08:00 Nasal Cannula 01/13/17 03:59 30 Intake and Output 01/12/17 01/12/17 01/13/17 15:00 23:00 07:00 Intake Total 800 ml 500 ml Output Total 1500 ml 1500 ml Balance -700 ml -1000 ml Exam Constitutional: alert Psych: no complaints Head: normocephalic Eyes: nl conjunctiva ENMT: nl external ears & nose Neck: supple Respiratory: congested cough, crackles/rales, diminished breath sounds Cardiovascular: nl pulses, regular rate and rhythm Gastrointestinal: non-tender, soft Musculoskeletal: nl extremities to inspection, nl gait and stance Neurological: IT NETWORK ARCHITECT II-XII 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, nl mental status, nl speech, nl strength Results Result Diagram: 01/12/17 0721 01/13/17 0741 Results 24 hrs Laboratory Tests Test 01/12/17 21:59 01/13/17 07:41 01/13/17 07:47 01/13/17 11:44 Bedside Glucose 113 254 H 176 Sodium Level 142 Potassium Level 4.7 Chloride Level 93 L Carbon Dioxide Level 38 H Anion Gap 16 Blood Urea Nitrogen 36 H Creatinine 1.31 H Glucose Level 256 H Calcium Level 9.7 Test 01/13/17 17:05 Bedside Glucose 164 Medications Medications Current Medications Ondansetron HCl (Zofran Inj) 4 mg Q6H PRN IV NAUSEA AND/OR VOMITING; Start at 16:00 Aspirin (Aspirin) 81 mg DAILY PO Last administered on 01/13/17 08:01; Admin Dose 81 MG; Start 01/07/17 at 09:00 Acetaminophen (Tylenol Tab) 650 mg Q6H PRN PO PAIN LEVEL 1-3 OR FEVER; Start 01/06/17 at 16:00 Morphine Sulfate (morphine) 2 mg Q4H PRN IV PAIN LEVEL 7-10; Start 01/06/17 at 16:00 Enoxaparin Sodium (Lovenox) 30 mg DAILY SC Last administered on 01/13/17 08: 01; Admin Dose 30 MG; Start 01/07/17 at 09:00 Miscellaneous Information 1 ea NOTE XX ; Start 01/06/17 at 21:00 Glucose (Glutose) 15 gm Q15M PRN PO DECREASED GLUCOSE; Start 01/06/17 at 21:00 Glucose (Glutose) 22.5 gm Q15M PRN PO DECREASED GLUCOSE; Start 01/06/17 at 21: 00 Dextrose (D50w Syringe) 25 ml Q15M PRN IV DECREASED GLUCOSE; Start 01/06/17 at 21:00 Dextrose (D50w Syringe) 50 ml Q15M PRN IV DECREASED GLUCOSE; Start 01/06/17 at 21:00 Glucagon (Glucagen) 1 mg Q15M PRN IM DECREASED GLUCOSE; Start 01/06/17 at 21: 00 Glucose (Glutose) 15 gm Q15M PRN BUCCAL DECREASED GLUCOSE; Start 01/06/17 at 21:00 Loratadine (Claritin) 10 mg DAILY PO Last administered on 01/13/17 08:01; Admin Dose 10 MG; Start 01/08/17 at 09:00 Hydralazine HCl (Apresoline) 25 mg Q8 PO Last administered on 01/13/17 13:30 ; Admin Dose 25 MG; Start 01/08/17 at 14:00 Metoprolol Succinate (Toprol Xl) 50 mg DAILY PO Last administered on 08:02; Admin Dose 50 MG; Start 01/08/17 at 15:00 Diagnostic Test (Pha) (Accu-Chek) 1 ea 02 XX Last administered on 01/12/17 02 :23; Admin Dose 1 EA; Start 01/09/17 at 02:00 Insulin Glargine (Lantus) 50 unit DAILY@08 SC Last administered on 01/13/17 08:00; Admin Dose 50 UNIT; Start 01/11/17 at 08:00 Empaglifozin (Jardiance) 10 mg DAILY@08 PO Last administered on 01/13/17 07: 58; Admin Dose 10 MG; Start 01/11/17 at 08:00 Linagliptin (Tradjenta) 5 mg DAILY PO Last administered on 01/13/17 08:02; Admin Dose 5 MG; Start 01/11/17 at 09:00 Insulin Human NPH (Humulin N) 56 unit DAILY@22 SC ; Start 01/13/17 at 22:00 Nifedipine (Procardia Xl) 60 mg BID PO ; Start 01/13/17 at 21:00 AWILDA LOU MD Jan 13, 2017 18:31
[2017-01-13] MEDS: NIFEdipine (XL) 60 MG TAB PO SCH (21:10)
[2017-01-13] MEDS ORDERED: NPH, HUMAN INSULIN ISOPHANE 3ML VIAL SC SCH (22:00)
[2017-01-14] VITALS (14 sets, daily range): BP systolic 121–148; BP diastolic 50–73; PULSE 70–85; RESP 18–21
[2017-01-14] MEDS: ACCU-CHEK XX SCH (02:52)
[2017-01-14] MEDS: FUROSEMIDE 20 MG INJ IV SCH ×2 (06:38→17:36)
[2017-01-14] MEDS: INSULIN ASPART [NOVOLOG] 3 ML PEN SC SCH ×7 (07:38→22:10)
[2017-01-14] MEDS: INSULIN GLARGINE [LANtus] 3 ML PEN SC SCH (07:41)
[2017-01-14] MEDS: EMPAGLIFLOZIN 10 MG TABLET PO SCH (07:42)
[2017-01-14] MEDS: LINAGLIPTIN 5 MG TABLET PO SCH (08:00)
[2017-01-14] MEDS: LORATADINE 10 MG TAB PO SCH (08:00)
[2017-01-14] MEDS: ASPIRIN 81 MG TAB PO SCH (08:00)
[2017-01-14] MEDS: ENOXAPARIN 30 MG/0.3 ML SYG SC SCH (08:02)
[2017-01-14] MEDS: NIFEdipine (XL) 60 MG TAB PO SCH ×2 (08:03→22:08)
[2017-01-14] MEDS: METOPROLOL (XL) 50 MG TAB PO SCH (08:03)
[2017-01-14 08:32] LABS: BASOPHIL # 0.1 10^3/ul (0.0-0.1); BASOPHILS % 0.6 % (0.0-2.0); EOSINOPHILS # 0.2 10^3/ul (0.0-0.5); EOSINOPHILS % 2.2 % (0.0-7.0); HEMATOCRIT 43.7 % (37.0-47.0); HEMOGLOBIN 13.4 g/dl (12.0-16.0); LYMPHOCYTES # 1.6 10^3/ul (0.8-2.9); LYMPHOCYTES % 17.3 % (15.0-51.0); MEAN CORPUSCULAR HEMOGLOBIN 27.1 pg (29.0-33.0); MEAN CORPUSCULAR HGB CONC 30.7 g/dl (32.0-37.0); MEAN CORPUSCULAR VOLUME 88.5 fl (82.0-101.0); MEAN PLATELET VOLUME 9.4 fl (7.4-10.4); MONOCYTE # 0.6 10^3/ul (0.3-0.9); MONOCYTES % 6.6 % (0.0-11.0); NEUTROPHIL # 6.8 10^3/ul (1.6-7.5); PLATELET COUNT 331 10^3/UL (140-415); RED BLOOD COUNT 4.94 10^6/ul (4.20-5.40); RED CELL DISTRIBUTION WIDTH 15.5 % (11.5-14.5); WHITE BLOOD COUNT 9.4 10^3/ul (4.8-10.8)
[2017-01-14 08:56] LABS: CALCIUM 9.2 mg/dl (8.4-10.2); CREATININE 1.27 mg/dl (0.44-1.00); POTASSIUM 4.4 mmol/L (3.5-5.1)
--- NOTE | 2017-01-14 12:09 | CONS ---
Date/Time of Note Date/Time of Note DATE: 01/14/17 TIME: 12:08 Assessment/Plan Assessment/Plan Chief Complaint/Hosp Course 76 F with 1. 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 Problems: Additional Assessment/Plan 1. acute on chronic renal faiulre 2. mild pul edema 3 . DAVID/OHS 4. CKD due to diabetic nephropathy 5 DM 6. Accelerated HTN Plan: Conitnue Lasix 20mg iV BID for diuresis Nifedipine 30mg PO BID for HTN management - BP controleld at this time no need for renal US at this time will follow up Nocturnal BIPAP as per pulmonary Consultation Date/Type/Reason Admit Date/Time Jan 06, 2017 at 13:10 Initial Consult Date 01/13/17 Type of Consultation: NEPHROLOGY Referring Provider: OLIVIA KAPLAN MD 24 HR Interval Summary Free Text/Dictation Cr 1.27, HCo3 33, Bps table, less SOB Exam/Review of Systems Vital Signs Vitals Vital Signs Date Time Temp Pulse Resp B/P Pulse Ox O2 Delivery O2 Flow Rate FiO2 01/14/17 11:59 97.9 86 18 132/64 97 01/14/17 07:47 Nasal Cannula 2.0 01/14/17 05:32 30 Intake and Output 01/13/17 01/13/17 01/14/17 15:00 23:00 07:00 Intake Total 520 ml 580 ml Output Total 500 ml Balance 520 ml 80 ml Exam Constitutional: alert Respiratory: congested cough, crackles/rales, diminished breath sounds Cardiovascular: nl pulses, regular rate and rhythm Gastrointestinal: non-tender, soft Musculoskeletal: nl extremities to inspection, nl gait and stance Neurological: KEY CUTTER II-XII intact, nl mental status, nl speech, nl strength Results Result Diagram: 01/14/17 0800 01/14/17 0800 Results 24 hrs Laboratory Tests Test 01/13/17 17:05 01/13/17 21:12 01/14/17 02:52 01/14/17 07:30 Bedside Glucose 164 171 202 210 Test 01/14/17 08:00 01/14/17 11:37 White Blood Count 9.4 Red Blood Count 4.94 Hemoglobin 13.4 Hematocrit 43.7 Mean Corpuscular Volume 88.5 Mean Corpuscular Hemoglobin 27.1 L Mean Corpuscular Hemoglobin Concent 30.7 L Red Cell Distribution Width 15.5 H Platelet Count 331 Mean Platelet Volume 9.4 Neutrophils % 73.0 Lymphocytes % 17.3 Monocytes % 6.6 Eosinophils % 2.2 Basophils % 0.6 Nucleated Red Blood Cells % 0.0 Neutrophils # 6.8 Lymphocytes # 1.6 Monocytes # 0.6 Eosinophils # 0.2 Basophils # 0.1 Nucleated Red Blood Cells # 0.0 Sodium Level 138 Potassium Level 4.4 Chloride Level 94 L Carbon Dioxide Level 33 H Anion Gap 15 Blood Urea Nitrogen 46 H Creatinine 1.27 H Glucose Level 213 Calcium Level 9.2 Bedside Glucose 184 Medications Medications Current Medications Ondansetron HCl (Zofran Inj) 4 mg Q6H PRN IV NAUSEA AND/OR VOMITING; Start at 16:00 Aspirin (Aspirin) 81 mg DAILY PO Last administered on 01/14/17 08:00; Admin Dose 81 MG; Start 01/07/17 at 09:00 Acetaminophen (Tylenol Tab) 650 mg Q6H PRN PO PAIN LEVEL 1-3 OR FEVER; Start 01/06/17 at 16:00 Morphine Sulfate (morphine) 2 mg Q4H PRN IV PAIN LEVEL 7-10; Start 01/06/17 at 16:00 Enoxaparin Sodium (Lovenox) 30 mg DAILY SC Last administered on 01/14/17 08: 02; Admin Dose 30 MG; Start 01/07/17 at 09:00 Miscellaneous Information 1 ea NOTE XX ; Start 01/06/17 at 21:00 Glucose (Glutose) 15 gm Q15M PRN PO DECREASED GLUCOSE; Start 01/06/17 at 21:00 Glucose (Glutose) 22.5 gm Q15M PRN PO DECREASED GLUCOSE; Start 01/06/17 at 21: 00 Dextrose (D50w Syringe) 25 ml Q15M PRN IV DECREASED GLUCOSE; Start 01/06/17 at 21:00 Dextrose (D50w Syringe) 50 ml Q15M PRN IV DECREASED GLUCOSE; Start 01/06/17 at 21:00 Glucagon (Glucagen) 1 mg Q15M PRN IM DECREASED GLUCOSE; Start 01/06/17 at 21: 00 Glucose (Glutose) 15 gm Q15M PRN BUCCAL DECREASED GLUCOSE; Start 01/06/17 at 21:00 Loratadine (Claritin) 10 mg DAILY PO Last administered on 01/14/17 08:00; Admin Dose 10 MG; Start 01/08/17 at 09:00 Hydralazine HCl (Apresoline) 25 mg Q8 PO Last administered on 01/14/17 06:37 ; Admin Dose 25 MG; Start 01/08/17 at 14:00 Metoprolol Succinate (Toprol Xl) 50 mg DAILY PO Last administered on 08:03; Admin Dose 50 MG; Start 01/08/17 at 15:00 Diagnostic Test (Pha) (Accu-Chek) 1 ea 02 XX Last administered on 01/14/17 02 :52; Admin Dose 1 EA; Start 01/09/17 at 02:00 Insulin Glargine (Lantus) 50 unit DAILY@08 SC Last administered on 01/14/17 07:41; Admin Dose 50 UNIT; Start 01/11/17 at 08:00 Empaglifozin (Jardiance) 10 mg DAILY@08 PO Last administered on 01/14/17 07: 42; Admin Dose 10 MG; Start 01/11/17 at 08:00 Linagliptin (Tradjenta) 5 mg DAILY PO Last administered on 01/14/17 08:00; Admin Dose 5 MG; Start 01/11/17 at 09:00 Nifedipine (Procardia Xl) 60 mg BID PO Last administered on 01/14/17 08:03; Admin Dose 60 MG; Start 01/13/17 at 21:00 Insulin Human NPH (Humulin N) 60 unit DAILY@22 SC ; Start 01/14/17 at 22:00 AWILDA LOU MD Jan 14, 2017 12:09
--- NOTE | 2017-01-14 12:41 | CONS ---
Date/Time of Note Date/Time of Note DATE: 01/14/17 TIME: 12:38 Assessment/Plan Assessment/Plan Problems: (1) DM w/o complication type II, uncontrolled Status: Chronic Comment: Marked improvement in glycemic control. At goal at most fingersticks except fasting. Will increase NPH from 56 just to 60 units qhs and reevaluate in am. Pt. o/w seems well for d/c at any time primary team feels this is appropriate. Consultation Date/Type/Reason Admit Date/Time Jan 06, 2017 at 13:10 Initial Consult Date 01/10/17 Type of Consultation: Endocrinology Reason for Consultation Type 2 Diabetes Mellitus Out Of Control Referring Provider: OLIVIA KAPLAN MD 24 HR Interval Summary Constitutional: improved, no complaints Detailed Summary Respiratory: no complaints, No shortness of breath Cardiovascular: no complaints Gastrointestinal: no complaints Genitourinary: no complaints Musculoskeletal: no complaints Neurologic: no complaints Exam/Review of Systems Vital Signs Vitals VS - Last 72 Hours, by Label Date Time Temp Pulse Resp B/P Pulse Ox O2 Delivery O2 Flow Rate FiO2 01/14/17 11:59 97.9 86 18 132/64 97 01/14/17 08:25 97.8 82 18 121/50 93 01/14/17 08:00 82 01/14/17 07:47 Nasal Cannula 2.0 01/14/17 05:32 82 98 30 01/14/17 04:40 78 01/14/17 03:14 Nasal Cannula 2.0 01/14/17 01:35 70 97 30 01/14/17 00:15 75 01/14/17 00:00 98.2 75 20 142/62 97 01/13/17 23:35 Nasal Cannula 2.0 01/13/17 22:59 73 97 30 01/13/17 22:59 2.0 01/13/17 20:09 69 01/13/17 20:00 Nasal Cannula 2.0 01/13/17 19:47 99.6 70 20 130/60 91 01/13/17 16:19 2.0 01/13/17 16:19 75 01/13/17 15:27 97.7 78 18 162/71 97 01/13/17 12:24 69 01/13/17 11:27 97.8 65 18 148/74 98 01/13/17 08:20 78 10/21/17 08:09 97.0 54 18 132/63 98 01/13/17 08:00 Nasal Cannula 2.0 01/13/17 05:17 2.0 01/13/17 04:31 70 01/13/17 04:00 97.7 80 20 152/87 98 01/13/17 03:59 70 97 30 01/13/17 01:26 96 97 30 01/13/17 00:26 2.0 01/13/17 00:08 66 01/13/17 00:00 98.5 76 20 158/68 94 01/12/17 21:45 Nasal Cannula 2.0 01/12/17 20:17 70 01/12/17 20:00 2.0 01/12/17 20:00 97.5 78 20 184/77 98 01/12/17 18:08 2.0 01/12/17 16:55 98.0 89 18 148/70 98 01/12/17 16:00 73 01/12/17 12:26 98.0 98 18 159/58 98 01/12/17 12:00 70 01/12/17 08:02 98.0 98 18 142/61 98 01/12/17 08:00 Nasal Cannula 2.0 01/12/17 08:00 66 01/12/17 04:33 66 01/12/17 04:18 97.4 69 18 146/69 100 01/12/17 01:34 2.0 01/12/17 00:55 97.2 75 20 151/68 96 01/12/17 00:40 68 01/11/17 20:56 74 01/11/17 20:45 Nasal Cannula 2.0 01/11/17 20:38 98.3 71 18 129/61 96 Nasal Cannula 2.0 01/11/17 19:59 2.0 01/11/17 17:30 2.0 01/11/17 16:00 79 01/11/17 15:51 96.5 76 18 134/65 97 Vital Signs Date Time Temp Pulse Resp B/P Pulse Ox O2 Delivery O2 Flow Rate FiO2 01/14/17 11:59 97.9 86 18 132/64 97 01/14/17 07:47 Nasal Cannula 2.0 01/14/17 05:32 30 Intake and Output 01/13/17 01/13/17 01/14/17 15:00 23:00 07:00 Intake Total 520 ml 580 ml Output Total 500 ml Balance 520 ml 80 ml Exam Constitutional: alert, obese, oriented Psych: nl mood/affect, no complaints Respiratory: clear to auscultation, normal air movement Cardiovascular: nl pulses, regular rate and rhythm, No edema, No murmurs/extra sounds, No rub Gastrointestinal: bowel sounds, nl liver, spleen, non-tender, soft, No mass, No rebound or guarding Musculoskeletal: nl extremities to inspection, nl gait and stance Extremities: normal pulses, No clubbing, No cyanosis, No edema Neurological: [employer] II-XII intact, nl mental status, nl speech, nl strength Additional Comments Bedside Glucose - 72 Hours Test 01/11/17 17:56 01/11/17 20:42 01/12/17 02:07 01/12/17 08:26 Bedside Glucose 309mg/dL (70-220) H 342mg/dL (70-220) H 219mg/dL (70-220) 286mg/dL (70-220) H Test 01/12/17 12:49 01/12/17 17:13 01/12/17 21:59 01/13/17 07:47 Bedside Glucose 82mg/dL (70-220) 122mg/dL (70-220) 113mg/dL (70-220) 254mg/dL (70-220) H Test 01/13/17 11:44 01/13/17 17:05 01/13/17 21:12 01/14/17 02:52 Bedside Glucose 176mg/dL (70-220) 164mg/dL (70-220) 171mg/dL (70-220) 202mg/dL (70-220) Test 01/14/17 07:30 01/14/17 11:37 Bedside Glucose 210mg/dL (70-220) 184mg/dL (70-220) Results Result Diagram: 01/14/17 0800 01/14/17 0800 Results 24 hrs Laboratory Tests Test 01/13/17 17:05 01/13/17 21:12 01/14/17 02:52 01/14/17 07:30 Bedside Glucose 164 171 202 210 Test 01/14/17 08:00 01/14/17 11:37 White Blood Count 9.4 Red Blood Count 4.94 Hemoglobin 13.4 Hematocrit 43.7 Mean Corpuscular Volume 88.5 Mean Corpuscular Hemoglobin 27.1 L Mean Corpuscular Hemoglobin Concent 30.7 L Red Cell Distribution Width 15.5 H Platelet Count 331 Mean Platelet Volume 9.4 Neutrophils % 73.0 Lymphocytes % 17.3 Monocytes % 6.6 Eosinophils % 2.2 Basophils % 0.6 Nucleated Red Blood Cells % 0.0 Neutrophils # 6.8 Lymphocytes # 1.6 Monocytes # 0.6 Eosinophils # 0.2 Basophils # 0.1 Nucleated Red Blood Cells # 0.0 Sodium Level 138 Potassium Level 4.4 Chloride Level 94 L Carbon Dioxide Level 33 H Anion Gap 15 Blood Urea Nitrogen 46 H Creatinine 1.27 H Glucose Level 213 Calcium Level 9.2 Bedside Glucose 184 Medications Medications Current Medications Ondansetron HCl (Zofran Inj) 4 mg Q6H PRN IV NAUSEA AND/OR VOMITING; Start at 16:00 Aspirin (Aspirin) 81 mg DAILY PO Last administered on 01/14/17 08:00; Admin Dose 81 MG; Start 01/07/17 at 09:00 Acetaminophen (Tylenol Tab) 650 mg Q6H PRN PO PAIN LEVEL 1-3 OR FEVER; Start 01/06/17 at 16:00 Morphine Sulfate (morphine) 2 mg Q4H PRN IV PAIN LEVEL 7-10; Start 01/06/17 at 16:00 Enoxaparin Sodium (Lovenox) 30 mg DAILY SC Last administered on 01/14/17 08: 02; Admin Dose 30 MG; Start 01/07/17 at 09:00 Miscellaneous Information 1 ea NOTE XX ; Start 01/06/17 at 21:00 Glucose (Glutose) 15 gm Q15M PRN PO DECREASED GLUCOSE; Start 01/06/17 at 21:00 Glucose (Glutose) 22.5 gm Q15M PRN PO DECREASED GLUCOSE; Start 01/06/17 at 21: 00 Dextrose (D50w Syringe) 25 ml Q15M PRN IV DECREASED GLUCOSE; Start 01/06/17 at 21:00 Dextrose (D50w Syringe) 50 ml Q15M PRN IV DECREASED GLUCOSE; Start 01/06/17 at 21:00 Glucagon (Glucagen) 1 mg Q15M PRN IM DECREASED GLUCOSE; Start 01/06/17 at 21: 00 Glucose (Glutose) 15 gm Q15M PRN BUCCAL DECREASED GLUCOSE; Start 01/06/17 at 21:00 Loratadine (Claritin) 10 mg DAILY PO Last administered on 01/14/17 08:00; Admin Dose 10 MG; Start 01/08/17 at 09:00 Hydralazine HCl (Apresoline) 25 mg Q8 PO Last administered on 01/14/17 06:37 ; Admin Dose 25 MG; Start 01/08/17 at 14:00 Metoprolol Succinate (Toprol Xl) 50 mg DAILY PO Last administered on 08:03; Admin Dose 50 MG; Start 01/08/17 at 15:00 Diagnostic Test (Pha) (Accu-Chek) 1 ea 02 XX Last administered on 01/14/17 02 :52; Admin Dose 1 EA; Start 01/09/17 at 02:00 Insulin Glargine (Lantus) 50 unit DAILY@08 SC Last administered on 01/14/17 07:41; Admin Dose 50 UNIT; Start 01/11/17 at 08:00 Empaglifozin (Jardiance) 10 mg DAILY@08 PO Last administered on 01/14/17 07: 42; Admin Dose 10 MG; Start 01/11/17 at 08:00 Linagliptin (Tradjenta) 5 mg DAILY PO Last administered on 01/14/17 08:00; Admin Dose 5 MG; Start 01/11/17 at 09:00 Nifedipine (Procardia Xl) 60 mg BID PO Last administered on 01/14/17 08:03; Admin Dose 60 MG; Start 01/13/17 at 21:00 Insulin Human NPH (Humulin N) 60 unit DAILY@22 SC ; Start 01/14/17 at 22:00 TONY KELLY MD Jan 14, 2017 12:41
--- NOTE | 2017-01-14 15:15 | CONS ---
Date/Time of Note Date/Time of Note DATE: 01/14/17 TIME: 15:13 Consult Date/Type/Reason Admit Date/Time Jan 06, 2017 at 13:10 Initial Consult Date 01/10/17 Type of Consultation: Pulm Ordering Provider: OLIVIA KAPLAN MD Subjective No events. Objective Vital Signs Date Time Temp Pulse Resp B/P Pulse Ox O2 Delivery O2 Flow Rate FiO2 01/14/17 12:00 78 01/14/17 11:59 97.9 18 132/64 97 01/14/17 07:47 Nasal Cannula 2.0 01/14/17 05:32 30 Intake and Output 01/13/17 01/13/17 01/14/17 15:00 23:00 07:00 Intake Total 520 ml 580 ml Output Total 500 ml Balance 520 ml 80 ml Exam HEENT: Neck supple; no JVD; no LAD CVS: RRR, S1 and S2 CHEST: Clear ABD: Soft, NT, + BS EXT: + edema Results/Medications Result Diagram: 01/14/17 0800 01/14/17 0800 Results 24 hrs Laboratory Tests Test 01/13/17 17:05 01/13/17 21:12 01/14/17 02:52 01/14/17 07:30 Bedside Glucose 164 171 202 210 Test 01/14/17 08:00 01/14/17 11:37 White Blood Count 9.4 Red Blood Count 4.94 Hemoglobin 13.4 Hematocrit 43.7 Mean Corpuscular Volume 88.5 Mean Corpuscular Hemoglobin 27.1 L Mean Corpuscular Hemoglobin Concent 30.7 L Red Cell Distribution Width 15.5 H Platelet Count 331 Mean Platelet Volume 9.4 Neutrophils % 73.0 Lymphocytes % 17.3 Monocytes % 6.6 Eosinophils % 2.2 Basophils % 0.6 Nucleated Red Blood Cells % 0.0 Neutrophils # 6.8 Lymphocytes # 1.6 Monocytes # 0.6 Eosinophils # 0.2 Basophils # 0.1 Nucleated Red Blood Cells # 0.0 Sodium Level 138 Potassium Level 4.4 Chloride Level 94 L Carbon Dioxide Level 33 H Anion Gap 15 Blood Urea Nitrogen 46 H Creatinine 1.27 H Glucose Level 213 Calcium Level 9.2 Bedside Glucose 184 Medications Current Medications Ondansetron HCl (Zofran Inj) 4 mg Q6H PRN IV NAUSEA AND/OR VOMITING; Start at 16:00 Aspirin (Aspirin) 81 mg DAILY PO Last administered on 01/14/17 08:00; Admin Dose 81 MG; Start 01/07/17 at 09:00 Acetaminophen (Tylenol Tab) 650 mg Q6H PRN PO PAIN LEVEL 1-3 OR FEVER; Start 01/06/17 at 16:00 Morphine Sulfate (morphine) 2 mg Q4H PRN IV PAIN LEVEL 7-10; Start 01/06/17 at 16:00 Enoxaparin Sodium (Lovenox) 30 mg DAILY SC Last administered on 01/14/17 08: 02; Admin Dose 30 MG; Start 01/07/17 at 09:00 Miscellaneous Information 1 ea NOTE XX ; Start 01/06/17 at 21:00 Glucose (Glutose) 15 gm Q15M PRN PO DECREASED GLUCOSE; Start 01/06/17 at 21:00 Glucose (Glutose) 22.5 gm Q15M PRN PO DECREASED GLUCOSE; Start 01/06/17 at 21: 00 Dextrose (D50w Syringe) 25 ml Q15M PRN IV DECREASED GLUCOSE; Start 01/06/17 at 21:00 Dextrose (D50w Syringe) 50 ml Q15M PRN IV DECREASED GLUCOSE; Start 01/06/17 at 21:00 Glucagon (Glucagen) 1 mg Q15M PRN IM DECREASED GLUCOSE; Start 01/06/17 at 21: 00 Glucose (Glutose) 15 gm Q15M PRN BUCCAL DECREASED GLUCOSE; Start 01/06/17 at 21:00 Loratadine (Claritin) 10 mg DAILY PO Last administered on 01/14/17 08:00; Admin Dose 10 MG; Start 01/08/17 at 09:00 Hydralazine HCl (Apresoline) 25 mg Q8 PO Last administered on 01/14/17 13:31 ; Admin Dose 25 MG; Start 01/08/17 at 14:00 Metoprolol Succinate (Toprol Xl) 50 mg DAILY PO Last administered on 08:03; Admin Dose 50 MG; Start 01/08/17 at 15:00 Diagnostic Test (Pha) (Accu-Chek) 1 ea 02 XX Last administered on 01/14/17 02 :52; Admin Dose 1 EA; Start 01/09/17 at 02:00 Insulin Glargine (Lantus) 50 unit DAILY@08 SC Last administered on 01/14/17 07:41; Admin Dose 50 UNIT; Start 01/11/17 at 08:00 Empaglifozin (Jardiance) 10 mg DAILY@08 PO Last administered on 01/14/17 07: 42; Admin Dose 10 MG; Start 01/11/17 at 08:00 Linagliptin (Tradjenta) 5 mg DAILY PO Last administered on 01/14/17 08:00; Admin Dose 5 MG; Start 01/11/17 at 09:00 Nifedipine (Procardia Xl) 60 mg BID PO Last administered on 01/14/17 08:03; Admin Dose 60 MG; Start 01/13/17 at 21:00 Insulin Human NPH (Humulin N) 60 unit DAILY@22 SC ; Start 01/14/17 at 22:00 Assessment/Plan Additional Assessment/Plan IMP: 1. OHS/DAVID 2. CKD 3. Mild pulmonary edema. 4. DM RECS: 1. Minimize FiO2 2. Nocturnal BiPAP 3. Diuresis MANOJ FRANCO MD Jan 14, 2017 15:15
--- NOTE | 2017-01-14 15:59 | CONS ---
Date/Time of Note Date/Time of Note DATE: 01/14/17 TIME: 15:54 Assessment/Plan Assessment/Plan Chief Complaint/Hosp Course IMPRESSION: 1. Congestive heart failure exacerbation, diastolic, acute on chronic by most recent echo and stress test. 2. Hypertension-LABILE still 3. Abnormal electrocardiogram with inferolateral T-wave inversions, assess for acute coronary syndrome with a negative stress test in July 2016.-negative trop x 3 4. Diabetes mellitus with uncontrolled BS 5. Chronic kidney disease/renal insufficiency. 6. Obesity. 7. DAVID REcc: -Tele -serial ecg's -Contineu asa -Continue lasix diuresis -Continue BB/procardia/hydralazine with now well controlled BP on current regimen -Follow BS clsoely with ongoing adjustment of hypoglycemic agents by endocrine -To be ordered for home Bipap -OK for d/c planning fro cardiac standpoint Problems: Consultation Date/Type/Reason Admit Date/Time Jan 06, 2017 at 13:10 Initial Consult Date 01/09/17 Type of Consultation: cardiology Reason for Consultation CHF Referring Provider: OLIVIA KAPLAN MD Exam/Review of Systems Vital Signs Vitals Vital Signs Date Time Temp Pulse Resp B/P Pulse Ox O2 Delivery O2 Flow Rate FiO2 01/14/17 12:00 78 01/14/17 11:59 97.9 18 132/64 97 01/14/17 07:47 Nasal Cannula 2.0 01/14/17 05:32 30 Intake and Output 01/13/17 01/13/17 01/14/17 15:00 23:00 07:00 Intake Total 520 ml 580 ml Output Total 500 ml Balance 520 ml 80 ml Exam Review of Systems: CONSTITUTIONAL: No fevers, chills. PULMONARY: mild sob CARDIOVASCULAR: No chest pain/palpitations GASTROINTESTINAL: No nausea/vomiting. GENITOURINARY: No hematuria/dysuria. MUSCULOSKELETAL: No myagias/arthalgias. PSYCHIATRIC: The patient denies depression. NEUROLOGIC: No weakness Constitutional: other (sleeping, easily arousable) Psych: no complaints Head: normocephalic ENMT: mucosa pink and moist Neck: jvd (9 cm water), supple Respiratory: diminished breath sounds (at bases/B) Cardiovascular: regular rate and rhythm Gastrointestinal: non-tender, soft Musculoskeletal: muscle tone (normal) Extremities: edema (trace/B) Neurological: other (No focal deficits) Results Result Diagram: 01/14/17 0800 01/14/17 0800 Results 24 hrs Laboratory Tests Test 01/13/17 17:05 01/13/17 21:12 01/14/17 02:52 01/14/17 07:30 Bedside Glucose 164 171 202 210 Test 01/14/17 08:00 01/14/17 11:37 White Blood Count 9.4 Red Blood Count 4.94 Hemoglobin 13.4 Hematocrit 43.7 Mean Corpuscular Volume 88.5 Mean Corpuscular Hemoglobin 27.1 L Mean Corpuscular Hemoglobin Concent 30.7 L Red Cell Distribution Width 15.5 H Platelet Count 331 Mean Platelet Volume 9.4 Neutrophils % 73.0 Lymphocytes % 17.3 Monocytes % 6.6 Eosinophils % 2.2 Basophils % 0.6 Nucleated Red Blood Cells % 0.0 Neutrophils # 6.8 Lymphocytes # 1.6 Monocytes # 0.6 Eosinophils # 0.2 Basophils # 0.1 Nucleated Red Blood Cells # 0.0 Sodium Level 138 Potassium Level 4.4 Chloride Level 94 L Carbon Dioxide Level 33 H Anion Gap 15 Blood Urea Nitrogen 46 H Creatinine 1.27 H Glucose Level 213 Calcium Level 9.2 Bedside Glucose 184 Medications Medications Current Medications Ondansetron HCl (Zofran Inj) 4 mg Q6H PRN IV NAUSEA AND/OR VOMITING; Start at 16:00 Aspirin (Aspirin) 81 mg DAILY PO Last administered on 01/14/17 08:00; Admin Dose 81 MG; Start 01/07/17 at 09:00 Acetaminophen (Tylenol Tab) 650 mg Q6H PRN PO PAIN LEVEL 1-3 OR FEVER; Start 01/06/17 at 16:00 Morphine Sulfate (morphine) 2 mg Q4H PRN IV PAIN LEVEL 7-10; Start 01/06/17 at 16:00 Enoxaparin Sodium (Lovenox) 30 mg DAILY SC Last administered on 01/14/17 08: 02; Admin Dose 30 MG; Start 01/07/17 at 09:00 Miscellaneous Information 1 ea NOTE XX ; Start 01/06/17 at 21:00 Glucose (Glutose) 15 gm Q15M PRN PO DECREASED GLUCOSE; Start 01/06/17 at 21:00 Glucose (Glutose) 22.5 gm Q15M PRN PO DECREASED GLUCOSE; Start 01/06/17 at 21: 00 Dextrose (D50w Syringe) 25 ml Q15M PRN IV DECREASED GLUCOSE; Start 01/06/17 at 21:00 Dextrose (D50w Syringe) 50 ml Q15M PRN IV DECREASED GLUCOSE; Start 01/06/17 at 21:00 Glucagon (Glucagen) 1 mg Q15M PRN IM DECREASED GLUCOSE; Start 01/06/17 at 21: 00 Glucose (Glutose) 15 gm Q15M PRN BUCCAL DECREASED GLUCOSE; Start 01/06/17 at 21:00 Loratadine (Claritin) 10 mg DAILY PO Last administered on 01/14/17 08:00; Admin Dose 10 MG; Start 01/08/17 at 09:00 Hydralazine HCl (Apresoline) 25 mg Q8 PO Last administered on 01/14/17 13:31 ; Admin Dose 25 MG; Start 01/08/17 at 14:00 Metoprolol Succinate (Toprol Xl) 50 mg DAILY PO Last administered on 08:03; Admin Dose 50 MG; Start 01/08/17 at 15:00 Diagnostic Test (Pha) (Accu-Chek) 1 ea 02 XX Last administered on 01/14/17 02 :52; Admin Dose 1 EA; Start 01/09/17 at 02:00 Insulin Glargine (Lantus) 50 unit DAILY@08 SC Last administered on 01/14/17 07:41; Admin Dose 50 UNIT; Start 01/11/17 at 08:00 Empaglifozin (Jardiance) 10 mg DAILY@08 PO Last administered on 01/14/17 07: 42; Admin Dose 10 MG; Start 01/11/17 at 08:00 Linagliptin (Tradjenta) 5 mg DAILY PO Last administered on 01/14/17 08:00; Admin Dose 5 MG; Start 01/11/17 at 09:00 Nifedipine (Procardia Xl) 60 mg BID PO Last administered on 01/14/17 08:03; Admin Dose 60 MG; Start 01/13/17 at 21:00 Insulin Human NPH (Humulin N) 60 unit DAILY@22 SC ; Start 01/14/17 at 22:00 TERRIE DUNN Jan 14, 2017 15:59
--- NOTE | 2017-01-14 19:10 | PN ---
Date/Time of Note Date/Time of Note DATE: 01/14/17 TIME: 19:03 Assessment/Plan VTE Prophylaxis VTE Prophylaxis Intervention: other Lines/Catheters IV C[facility]ter Type (from [facility] Urinary Cath still in place: No Assessment/Plan Assessment/Plan - Dyspnea possible sec to CHF. - per pulmonary - Diastolic acute on chronic congestive heart failure exacerbation. Continue Lasix. Dr. Cota is following in cardiology consultation. Continue to monitor electrolytes. - Possible sleep apnea, continue BiPAP per pulmonology. Dr. Bravo is asked to see patient in pulmonology consultation. - Hypertension. - Diabetes mellitus type 2 with hemoglobin A1c 9.2. Continue Lantus and pre- meal NovoLog as well as NovoLog per mild algorithm sliding scale. Dr. Bartholomew is following in endocrinology consultation. - Acute on chronic kidney disease. Continue to monitor BUN and creatinine. - Hyperlipidemia. Continue statin. - Morbid obesity with BMI 56. -Dietary consult - Weight management Further recommendations based on clinical course. Plan of care discussed with Dr. Garza. Subjective 24 Hr Interval Summary Free Text/Dictation - Dyspnea pulmonary follows. remains on supplement oxygen by [place] -continue BiPAP for sleep apnea, - dw STAFF Respiratory: shortness of breath Cardiovascular: no complaints Gastrointestinal: no complaints Genitourinary: no complaints Musculoskeletal: no complaints Exam/Review of Systems Vital Signs Vitals Vital Signs Date Time Temp Pulse Resp B/P Pulse Ox O2 Delivery O2 Flow Rate FiO2 01/14/17 16:31 97.7 69 18 148/73 96 01/14/17 16:17 2.0 01/14/17 07:47 Nasal Cannula 01/14/17 05:32 30 Intake and Output 01/13/17 01/13/17 01/14/17 15:00 23:00 07:00 Intake Total 520 ml 580 ml Output Total 500 ml Balance 520 ml 80 ml Exam Constitutional: alert, obese, oriented Respiratory: diminished breath sounds Cardiovascular: nl pulses Gastrointestinal: non-tender, soft Musculoskeletal: nl extremities to inspection Neurological: nl mental status, nl speech Results Result Diagram: 01/14/17 0800 01/14/17 0800 Results 24 hrs Laboratory Tests Test 01/13/17 21:12 01/14/17 02:52 01/14/17 07:30 01/14/17 08:00 Bedside Glucose 171 202 210 White Blood Count 9.4 Red Blood Count 4.94 Hemoglobin 13.4 Hematocrit 43.7 Mean Corpuscular Volume 88.5 Mean Corpuscular Hemoglobin 27.1 L Mean Corpuscular Hemoglobin Concent 30.7 L Red Cell Distribution Width 15.5 H Platelet Count 331 Mean Platelet Volume 9.4 Neutrophils % 73.0 Lymphocytes % 17.3 Monocytes % 6.6 Eosinophils % 2.2 Basophils % 0.6 Nucleated Red Blood Cells % 0.0 Neutrophils # 6.8 Lymphocytes # 1.6 Monocytes # 0.6 Eosinophils # 0.2 Basophils # 0.1 Nucleated Red Blood Cells # 0.0 Sodium Level 138 Potassium Level 4.4 Chloride Level 94 L Carbon Dioxide Level 33 H Anion Gap 15 Blood Urea Nitrogen 46 H Creatinine 1.27 H Glucose Level 213 Calcium Level 9.2 Test 01/14/17 11:37 01/14/17 17:22 Bedside Glucose 184 120 Medications Medications Current Medications Ondansetron HCl (Zofran Inj) 4 mg Q6H PRN IV NAUSEA AND/OR VOMITING; Start at 16:00 Aspirin (Aspirin) 81 mg DAILY PO Last administered on 01/14/17 08:00; Admin Dose 81 MG; Start 01/07/17 at 09:00 Acetaminophen (Tylenol Tab) 650 mg Q6H PRN PO PAIN LEVEL 1-3 OR FEVER; Start 01/06/17 at 16:00 Morphine Sulfate (morphine) 2 mg Q4H PRN IV PAIN LEVEL 7-10; Start 01/06/17 at 16:00 Enoxaparin Sodium (Lovenox) 30 mg DAILY SC Last administered on 01/14/17 08: 02; Admin Dose 30 MG; Start 01/07/17 at 09:00 Miscellaneous Information 1 ea NOTE XX ; Start 01/06/17 at 21:00 Glucose (Glutose) 15 gm Q15M PRN PO DECREASED GLUCOSE; Start 01/06/17 at 21:00 Glucose (Glutose) 22.5 gm Q15M PRN PO DECREASED GLUCOSE; Start 01/06/17 at 21: 00 Dextrose (D50w Syringe) 25 ml Q15M PRN IV DECREASED GLUCOSE; Start 01/06/17 at 21:00 Dextrose (D50w Syringe) 50 ml Q15M PRN IV DECREASED GLUCOSE; Start 01/06/17 at 21:00 Glucagon (Glucagen) 1 mg Q15M PRN IM DECREASED GLUCOSE; Start 01/06/17 at 21: 00 Glucose (Glutose) 15 gm Q15M PRN BUCCAL DECREASED GLUCOSE; Start 01/06/17 at 21:00 Loratadine (Claritin) 10 mg DAILY PO Last administered on 01/14/17 08:00; Admin Dose 10 MG; Start 01/08/17 at 09:00 Hydralazine HCl (Apresoline) 25 mg Q8 PO Last administered on 01/14/17 13:31 ; Admin Dose 25 MG; Start 01/08/17 at 14:00 Metoprolol Succinate (Toprol Xl) 50 mg DAILY PO Last administered on 08:03; Admin Dose 50 MG; Start 01/08/17 at 15:00 Diagnostic Test (Pha) (Accu-Chek) 1 ea 02 XX Last administered on 01/14/17 02 :52; Admin Dose 1 EA; Start 01/09/17 at 02:00 Insulin Glargine (Lantus) 50 unit DAILY@08 SC Last administered on 01/14/17 07:41; Admin Dose 50 UNIT; Start 01/11/17 at 08:00 Empaglifozin (Jardiance) 10 mg DAILY@08 PO Last administered on 01/14/17 07: 42; Admin Dose 10 MG; Start 01/11/17 at 08:00 Linagliptin (Tradjenta) 5 mg DAILY PO Last administered on 01/14/17 08:00; Admin Dose 5 MG; Start 01/11/17 at 09:00 Nifedipine (Procardia Xl) 60 mg BID PO Last administered on 01/14/17 08:03; Admin Dose 60 MG; Start 01/13/17 at 21:00 Insulin Human NPH (Humulin N) 60 unit DAILY@22 SC ; Start 01/14/17 at 22:00 ENRRIQUE AGUILAR Jan 14, 2017 19:10
[2017-01-14] MEDS ORDERED: NPH, HUMAN INSULIN ISOPHANE 3ML VIAL SC SCH (22:00)
[2017-01-15] VITALS (11 sets, daily range): BP systolic 125–148; BP diastolic 50–73; PULSE 76–87; RESP 20–21
[2017-01-15] MEDS: ACCU-CHEK XX SCH (01:39)
[2017-01-15] MEDS: FUROSEMIDE 20 MG INJ IV SCH ×2 (06:25→17:51)
[2017-01-15] MEDS: INSULIN ASPART [NOVOLOG] 3 ML PEN SC SCH ×6 (08:40→17:49)
[2017-01-15] MEDS: INSULIN GLARGINE [LANtus] 3 ML PEN SC SCH (08:40)
[2017-01-15] MEDS: LINAGLIPTIN 5 MG TABLET PO SCH (08:42)
[2017-01-15] MEDS: ASPIRIN 81 MG TAB PO SCH (08:42)
[2017-01-15] MEDS: NIFEdipine (XL) 60 MG TAB PO SCH (08:42)
[2017-01-15] MEDS: ENOXAPARIN 30 MG/0.3 ML SYG SC SCH (08:42)
[2017-01-15] MEDS: EMPAGLIFLOZIN 10 MG TABLET PO SCH (08:42)
[2017-01-15] MEDS: LORATADINE 10 MG TAB PO SCH (08:43)
[2017-01-15] MEDS: METOPROLOL (XL) 50 MG TAB PO SCH (08:43)
[2017-01-15 08:56] LABS: BASOPHIL # 0.1 10^3/ul (0.0-0.1); BASOPHILS % 0.6 % (0.0-2.0); EOSINOPHILS # 0.2 10^3/ul (0.0-0.5); EOSINOPHILS % 2.1 % (0.0-7.0); HEMATOCRIT 42.2 % (37.0-47.0); LYMPHOCYTES # 1.7 10^3/ul (0.8-2.9); LYMPHOCYTES % 18.4 % (15.0-51.0); MEAN CORPUSCULAR HEMOGLOBIN 27.1 pg (29.0-33.0); MEAN CORPUSCULAR HGB CONC 30.8 g/dl (32.0-37.0); MEAN CORPUSCULAR VOLUME 87.9 fl (82.0-101.0); MEAN PLATELET VOLUME 9.5 fl (7.4-10.4); MONOCYTE # 0.7 10^3/ul (0.3-0.9); MONOCYTES % 7.5 % (0.0-11.0); NEUTROPHIL # 6.4 10^3/ul (1.6-7.5); NEUTROPHILS % 70.8 % (39.0-77.0); PLATELET COUNT 327 10^3/UL (140-415); RED CELL DISTRIBUTION WIDTH 15.2 % (11.5-14.5)
[2017-01-15 09:18] LABS: CALCIUM 9.2 mg/dl (8.4-10.2); CREATININE 1.38 mg/dl (0.44-1.00); POTASSIUM 3.9 mmol/L (3.5-5.1)
--- NOTE | 2017-01-15 14:20 | CONS ---
Date/Time of Note Date/Time of Note DATE: 01/15/17 TIME: 14:19 Consult Date/Type/Reason Admit Date/Time Jan 06, 2017 at 13:10 Initial Consult Date 01/13/17 Type of Consultation: Pulmonary Ordering Provider: OLIVIA KAPLAN MD Subjective Patient comfortable this morning. Denies shortness of breath. States she has home O2 and a CPAP device. Objective Vital Signs Date Time Temp Pulse Resp B/P Pulse Ox O2 Delivery O2 Flow Rate FiO2 01/15/17 12:00 76 01/15/17 11:56 98.4 20 126/58 96 01/15/17 08:00 Nasal Cannula 2.0 01/14/17 05:32 30 Intake and Output 01/14/17 01/14/17 01/15/17 15:00 23:00 07:00 Intake Total 860 ml 240 ml Output Total 600 ml 1300 ml Balance 260 ml -1060 ml Exam GENERAL: Obese lady comfortable at rest no acute distress VITAL SIGNS: per chart NECK: Supple. No JVD or lymphadenopathy. CARDIAC EXAM: S1, S2. No added sounds or murmurs. CHEST: clear bilaterally, No added sounds, rales or wheezes ABDOMEN: Soft, nontender. No guarding or rebound. EXTREMITIES: No cyanosis, clubbing or edema. NEUROLOGIC: Generalized weakness. No focal deficits. Results/Medications Result Diagram: 01/15/17 0755 01/15/17 0755 Results 24 hrs Laboratory Tests Test 01/14/17 17:22 01/14/17 22:10 01/15/17 07:55 01/15/17 08:19 Bedside Glucose 120 147 186 White Blood Count 9.0 Red Blood Count 4.80 Hemoglobin 13.0 Hematocrit 42.2 Mean Corpuscular Volume 87.9 Mean Corpuscular Hemoglobin 27.1 L Mean Corpuscular Hemoglobin Concent 30.8 L Red Cell Distribution Width 15.2 H Platelet Count 327 Mean Platelet Volume 9.5 Neutrophils % 70.8 Lymphocytes % 18.4 Monocytes % 7.5 Eosinophils % 2.1 Basophils % 0.6 Nucleated Red Blood Cells % 0.0 Neutrophils # 6.4 Lymphocytes # 1.7 Monocytes # 0.7 Eosinophils # 0.2 Basophils # 0.1 Nucleated Red Blood Cells # 0.0 Sodium Level 140 Potassium Level 3.9 Chloride Level 95 L Carbon Dioxide Level 32 H Anion Gap 17 H Blood Urea Nitrogen 50 H Creatinine 1.38 H Glucose Level 177 Calcium Level 9.2 Test 01/15/17 11:58 Bedside Glucose 192 Medications Current Medications Ondansetron HCl (Zofran Inj) 4 mg Q6H PRN IV NAUSEA AND/OR VOMITING; Start at 16:00 Aspirin (Aspirin) 81 mg DAILY PO Last administered on 01/15/17 08:42; Admin Dose 81 MG; Start 01/07/17 at 09:00 Acetaminophen (Tylenol Tab) 650 mg Q6H PRN PO PAIN LEVEL 1-3 OR FEVER; Start 01/06/17 at 16:00 Morphine Sulfate (morphine) 2 mg Q4H PRN IV PAIN LEVEL 7-10; Start 01/06/17 at 16:00 Enoxaparin Sodium (Lovenox) 30 mg DAILY SC Last administered on 01/15/17 08: 42; Admin Dose 30 MG; Start 01/07/17 at 09:00 Miscellaneous Information 1 ea NOTE XX ; Start 01/06/17 at 21:00 Glucose (Glutose) 15 gm Q15M PRN PO DECREASED GLUCOSE; Start 01/06/17 at 21:00 Glucose (Glutose) 22.5 gm Q15M PRN PO DECREASED GLUCOSE; Start 01/06/17 at 21: 00 Dextrose (D50w Syringe) 25 ml Q15M PRN IV DECREASED GLUCOSE; Start 01/06/17 at 21:00 Dextrose (D50w Syringe) 50 ml Q15M PRN IV DECREASED GLUCOSE; Start 01/06/17 at 21:00 Glucagon (Glucagen) 1 mg Q15M PRN IM DECREASED GLUCOSE; Start 01/06/17 at 21: 00 Glucose (Glutose) 15 gm Q15M PRN BUCCAL DECREASED GLUCOSE; Start 01/06/17 at 21:00 Loratadine (Claritin) 10 mg DAILY PO Last administered on 01/15/17 08:43; Admin Dose 10 MG; Start 01/08/17 at 09:00 Hydralazine HCl (Apresoline) 25 mg Q8 PO Last administered on 01/15/17 14:05 ; Admin Dose 25 MG; Start 01/08/17 at 14:00 Metoprolol Succinate (Toprol Xl) 50 mg DAILY PO Last administered on 08:43; Admin Dose 50 MG; Start 01/08/17 at 15:00 Diagnostic Test (Pha) (Accu-Chek) 1 ea 02 XX Last administered on 01/14/17 02 :52; Admin Dose 1 EA; Start 01/09/17 at 02:00 Insulin Glargine (Lantus) 50 unit DAILY@08 SC Last administered on 01/15/17 08:40; Admin Dose 50 UNIT; Start 01/11/17 at 08:00 Empaglifozin (Jardiance) 10 mg DAILY@08 PO Last administered on 01/15/17 08: 42; Admin Dose 10 MG; Start 01/11/17 at 08:00 Linagliptin (Tradjenta) 5 mg DAILY PO Last administered on 01/15/17 08:42; Admin Dose 5 MG; Start 01/11/17 at 09:00 Nifedipine (Procardia Xl) 60 mg BID PO Last administered on 01/15/17 08:42; Admin Dose 60 MG; Start 01/13/17 at 21:00 Insulin Human NPH (Humulin N) 60 unit DAILY@22 SC Last administered on 22:15; Admin Dose 60 UNIT; Start 01/14/17 at 22:00 Assessment/Plan Chief Complaint/Hosp Course IMP: 1. OHS/DAVID 2. CKD 3. Mild pulmonary edema. 4. DM RECS: 1. Minimize FiO2 2. Nocturnal BiPAP 3. Diuresis DC okay from primary standpoint. I can follow her in the office. Problems: TICO ASKEW MD, [facility] Jan 15, 2017 14:20
--- NOTE | 2017-01-15 17:18 | CONS ---
Date/Time of Note Date/Time of Note DATE: 01/15/17 TIME: 17:16 Assessment/Plan Assessment/Plan Chief Complaint/Hosp Course 76 F with 1. 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 Problems: Additional Assessment/Plan 1. acute on chronic renal faiulre 2. mild pul edema 3 . DAVID/OHS 4. CKD due to diabetic nephropathy 5 DM 6. Accelerated HTN Plan: Conitnue Lasix 20mg iV BID for diuresis, Cr 1.38, HCo3 32- if Bicarbonate continues to rise then we will cut down on lasix Nifedipine 30mg PO BID for HTN management - BP controlled at this time no need for renal US at this time will follow up Nocturnal BIPAP as per pulmonary Consultation Date/Type/Reason Admit Date/Time Jan 06, 2017 at 13:10 Initial Consult Date 01/13/17 Type of Consultation: NEPHROLOGY Referring Provider: OLIVIA KAPLAN MD 24 HR Interval Summary Free Text/Dictation no acute events, Cr stable 1.38, HCo3 32 Exam/Review of Systems Vital Signs Vitals Vital Signs Date Time Temp Pulse Resp B/P Pulse Ox O2 Delivery O2 Flow Rate FiO2 01/15/17 16:11 2.0 01/15/17 15:54 97.7 68 20 125/50 98 01/15/17 08:00 Nasal Cannula 01/14/17 05:32 30 Intake and Output 01/14/17 01/14/17 01/15/17 15:00 23:00 07:00 Intake Total 860 ml 240 ml Output Total 600 ml 1300 ml Balance 260 ml -1060 ml Exam Constitutional: alert Respiratory: congested cough, crackles/rales, diminished breath sounds Cardiovascular: nl pulses, regular rate and rhythm Gastrointestinal: non-tender, soft Musculoskeletal: nl extremities to inspection, nl gait and stance Neurological: FIELD HUMAN RESOURCES MANAGER II-XII intact, nl mental status, nl speech, nl strength Results Result Diagram: 01/15/17 0755 01/15/17 0755 Results 24 hrs Laboratory Tests Test 01/14/17 17:22 01/14/17 22:10 01/15/17 07:55 01/15/17 08:19 Bedside Glucose 120 147 186 White Blood Count 9.0 Red Blood Count 4.80 Hemoglobin 13.0 Hematocrit 42.2 Mean Corpuscular Volume 87.9 Mean Corpuscular Hemoglobin 27.1 L Mean Corpuscular Hemoglobin Concent 30.8 L Red Cell Distribution Width 15.2 H Platelet Count 327 Mean Platelet Volume 9.5 Neutrophils % 70.8 Lymphocytes % 18.4 Monocytes % 7.5 Eosinophils % 2.1 Basophils % 0.6 Nucleated Red Blood Cells % 0.0 Neutrophils # 6.4 Lymphocytes # 1.7 Monocytes # 0.7 Eosinophils # 0.2 Basophils # 0.1 Nucleated Red Blood Cells # 0.0 Sodium Level 140 Potassium Level 3.9 Chloride Level 95 L Carbon Dioxide Level 32 H Anion Gap 17 H Blood Urea Nitrogen 50 H Creatinine 1.38 H Glucose Level 177 Calcium Level 9.2 Test 01/15/17 11:58 01/15/17 17:03 Bedside Glucose 192 124 Medications Medications Current Medications Ondansetron HCl (Zofran Inj) 4 mg Q6H PRN IV NAUSEA AND/OR VOMITING; Start at 16:00 Aspirin (Aspirin) 81 mg DAILY PO Last administered on 01/15/17 08:42; Admin Dose 81 MG; Start 01/07/17 at 09:00 Acetaminophen (Tylenol Tab) 650 mg Q6H PRN PO PAIN LEVEL 1-3 OR FEVER; Start 01/06/17 at 16:00 Morphine Sulfate (morphine) 2 mg Q4H PRN IV PAIN LEVEL 7-10; Start 01/06/17 at 16:00 Enoxaparin Sodium (Lovenox) 30 mg DAILY SC Last administered on 01/15/17 08: 42; Admin Dose 30 MG; Start 01/07/17 at 09:00 Miscellaneous Information 1 ea NOTE XX ; Start 01/06/17 at 21:00 Glucose (Glutose) 15 gm Q15M PRN PO DECREASED GLUCOSE; Start 01/06/17 at 21:00 Glucose (Glutose) 22.5 gm Q15M PRN PO DECREASED GLUCOSE; Start 01/06/17 at 21: 00 Dextrose (D50w Syringe) 25 ml Q15M PRN IV DECREASED GLUCOSE; Start 01/06/17 at 21:00 Dextrose (D50w Syringe) 50 ml Q15M PRN IV DECREASED GLUCOSE; Start 01/06/17 at 21:00 Glucagon (Glucagen) 1 mg Q15M PRN IM DECREASED GLUCOSE; Start 01/06/17 at 21: 00 Glucose (Glutose) 15 gm Q15M PRN BUCCAL DECREASED GLUCOSE; Start 01/06/17 at 21:00 Loratadine (Claritin) 10 mg DAILY PO Last administered on 01/15/17 08:43; Admin Dose 10 MG; Start 01/08/17 at 09:00 Hydralazine HCl (Apresoline) 25 mg Q8 PO Last administered on 01/15/17 14:05 ; Admin Dose 25 MG; Start 01/08/17 at 14:00 Metoprolol Succinate (Toprol Xl) 50 mg DAILY PO Last administered on 08:43; Admin Dose 50 MG; Start 01/08/17 at 15:00 Diagnostic Test (Pha) (Accu-Chek) 1 ea 02 XX Last administered on 01/14/17 02 :52; Admin Dose 1 EA; Start 01/09/17 at 02:00 Insulin Glargine (Lantus) 50 unit DAILY@08 SC Last administered on 01/15/17 08:40; Admin Dose 50 UNIT; Start 01/11/17 at 08:00 Empaglifozin (Jardiance) 10 mg DAILY@08 PO Last administered on 01/15/17 08: 42; Admin Dose 10 MG; Start 01/11/17 at 08:00 Linagliptin (Tradjenta) 5 mg DAILY PO Last administered on 01/15/17 08:42; Admin Dose 5 MG; Start 01/11/17 at 09:00 Nifedipine (Procardia Xl) 60 mg BID PO Last administered on 01/15/17 08:42; Admin Dose 60 MG; Start 01/13/17 at 21:00 Insulin Human NPH (Humulin N) 60 unit DAILY@22 SC Last administered on 22:15; Admin Dose 60 UNIT; Start 01/14/17 at 22:00 AWILDA LOU MD Jan 15, 2017 17:18
--- NOTE | 2017-01-15 18:00 | CONS ---
Date/Time of Note Date/Time of Note DATE: 01/15/17 TIME: 17:58 Assessment/Plan Assessment/Plan Chief Complaint/Hosp Course IMPRESSION: 1. Congestive heart failure exacerbation, diastolic, acute on chronic by most recent echo and stress test. 2. Hypertension-LABILE still 3. Abnormal electrocardiogram with inferolateral T-wave inversions, assess for acute coronary syndrome with a negative stress test in July 2016.-negative trop x 3 4. Diabetes mellitus with uncontrolled BS 5. Chronic kidney disease/renal insufficiency. 6. Obesity. 7. DAVID REcc: -Tele -serial ecg's -Contineu asa -Continue lasix diuresis -Continue BB/procardia/hydralazine with now well controlled BP on current regimen -Follow BS clsoely with ongoing adjustment of hypoglycemic agents by endocrine -To be ordered for home Bipap -OK for d/c planning fro cardiac standpoint Problems: Consultation Date/Type/Reason Admit Date/Time Jan 06, 2017 at 13:10 Initial Consult Date 01/09/17 Type of Consultation: cardiology Reason for Consultation CHF Referring Provider: OLIVIA KAPLAN MD Exam/Review of Systems Vital Signs Vitals Vital Signs Date Time Temp Pulse Resp B/P Pulse Ox O2 Delivery O2 Flow Rate FiO2 01/15/17 16:11 2.0 01/15/17 16:00 78 01/15/17 15:54 97.7 20 125/50 98 01/15/17 08:00 Nasal Cannula 01/14/17 05:32 30 Intake and Output 01/14/17 01/14/17 01/15/17 14:59 22:59 06:59 Intake Total 860 ml 240 ml Output Total 600 ml 1300 ml Balance 260 ml -1060 ml Exam Review of Systems: CONSTITUTIONAL: No fevers, chills. PULMONARY: No sob CARDIOVASCULAR: No chest pain/palpitations GASTROINTESTINAL: No nausea/vomiting. GENITOURINARY: No hematuria/dysuria. MUSCULOSKELETAL: No myagias/arthalgias. PSYCHIATRIC: The patient denies depression. NEUROLOGIC: No weakness Constitutional: alert, oriented Psych: no complaints ENMT: mucosa pink and moist Neck: jvd (9 cm water), supple Respiratory: diminished breath sounds (at bases/B) Cardiovascular: regular rate and rhythm Gastrointestinal: non-tender, soft Musculoskeletal: muscle tone (normal) Extremities: edema (trace/B) Neurological: other (No focal deficits) Results Result Diagram: 01/15/17 0755 01/15/17 0755 Results 24 hrs Laboratory Tests Test 01/14/17 22:10 01/15/17 07:55 01/15/17 08:19 01/15/17 11:58 Bedside Glucose 147 186 192 White Blood Count 9.0 Red Blood Count 4.80 Hemoglobin 13.0 Hematocrit 42.2 Mean Corpuscular Volume 87.9 Mean Corpuscular Hemoglobin 27.1 L Mean Corpuscular Hemoglobin Concent 30.8 L Red Cell Distribution Width 15.2 H Platelet Count 327 Mean Platelet Volume 9.5 Neutrophils % 70.8 Lymphocytes % 18.4 Monocytes % 7.5 Eosinophils % 2.1 Basophils % 0.6 Nucleated Red Blood Cells % 0.0 Neutrophils # 6.4 Lymphocytes # 1.7 Monocytes # 0.7 Eosinophils # 0.2 Basophils # 0.1 Nucleated Red Blood Cells # 0.0 Sodium Level 140 Potassium Level 3.9 Chloride Level 95 L Carbon Dioxide Level 32 H Anion Gap 17 H Blood Urea Nitrogen 50 H Creatinine 1.38 H Glucose Level 177 Calcium Level 9.2 Test 01/15/17 17:03 Bedside Glucose 124 Medications Medications Current Medications Ondansetron HCl (Zofran Inj) 4 mg Q6H PRN IV NAUSEA AND/OR VOMITING; Start at 16:00 Aspirin (Aspirin) 81 mg DAILY PO Last administered on 01/15/17 08:42; Admin Dose 81 MG; Start 01/07/17 at 09:00 Acetaminophen (Tylenol Tab) 650 mg Q6H PRN PO PAIN LEVEL 1-3 OR FEVER; Start 01/06/17 at 16:00 Morphine Sulfate (morphine) 2 mg Q4H PRN IV PAIN LEVEL 7-10; Start 01/06/17 at 16:00 Enoxaparin Sodium (Lovenox) 30 mg DAILY SC Last administered on 01/15/17 08: 42; Admin Dose 30 MG; Start 01/07/17 at 09:00 Miscellaneous Information 1 ea NOTE XX ; Start 01/06/17 at 21:00 Glucose (Glutose) 15 gm Q15M PRN PO DECREASED GLUCOSE; Start 01/06/17 at 21:00 Glucose (Glutose) 22.5 gm Q15M PRN PO DECREASED GLUCOSE; Start 01/06/17 at 21: 00 Dextrose (D50w Syringe) 25 ml Q15M PRN IV DECREASED GLUCOSE; Start 01/06/17 at 21:00 Dextrose (D50w Syringe) 50 ml Q15M PRN IV DECREASED GLUCOSE; Start 01/06/17 at 21:00 Glucagon (Glucagen) 1 mg Q15M PRN IM DECREASED GLUCOSE; Start 01/06/17 at 21: 00 Glucose (Glutose) 15 gm Q15M PRN BUCCAL DECREASED GLUCOSE; Start 01/06/17 at 21:00 Loratadine (Claritin) 10 mg DAILY PO Last administered on 01/15/17 08:43; Admin Dose 10 MG; Start 01/08/17 at 09:00 Hydralazine HCl (Apresoline) 25 mg Q8 PO Last administered on 01/15/17 14:05 ; Admin Dose 25 MG; Start 01/08/17 at 14:00 Metoprolol Succinate (Toprol Xl) 50 mg DAILY PO Last administered on 08:43; Admin Dose 50 MG; Start 01/08/17 at 15:00 Diagnostic Test (Pha) (Accu-Chek) 1 ea 02 XX Last administered on 01/14/17 02 :52; Admin Dose 1 EA; Start 01/09/17 at 02:00 Insulin Glargine (Lantus) 50 unit DAILY@08 SC Last administered on 01/15/17 08:40; Admin Dose 50 UNIT; Start 01/11/17 at 08:00 Empaglifozin (Jardiance) 10 mg DAILY@08 PO Last administered on 01/15/17 08: 42; Admin Dose 10 MG; Start 01/11/17 at 08:00 Linagliptin (Tradjenta) 5 mg DAILY PO Last administered on 01/15/17 08:42; Admin Dose 5 MG; Start 01/11/17 at 09:00 Nifedipine (Procardia Xl) 60 mg BID PO Last administered on 01/15/17 08:42; Admin Dose 60 MG; Start 01/13/17 at 21:00 Insulin Human NPH (Humulin N) 60 unit DAILY@22 SC Last administered on 22:15; Admin Dose 60 UNIT; Start 01/14/17 at 22:00 TERRIE DUNN Jan 15, 2017 18:00
--- NOTE | 2017-01-15 18:28 | CONS ---
Date/Time of Note Date/Time of Note DATE: 01/15/17 TIME: 18:26 Assessment/Plan Assessment/Plan Problems: (1) DM w/o complication type II, uncontrolled Status: Chronic Comment: Marked improvement in glycemic control. Current insulin doses are effective for this patient while in hospital. Will continue these insulin doses at this time. Once patient is ready for discharge, she should resume her concentrated insulin that she has been taking prior to admission at the same doses. Consultation Date/Type/Reason Admit Date/Time Jan 06, 2017 at 13:10 Initial Consult Date 01/10/17 Type of Consultation: Endocrinology Reason for Consultation Type 2 diabetes mellitus out of control Referring Provider: OILVIA KAPLAN MD 24 HR Interval Summary Constitutional: improved, no complaints Detailed Summary Respiratory: no complaints, No shortness of breath Cardiovascular: no complaints Gastrointestinal: no complaints Genitourinary: no complaints Musculoskeletal: no complaints Neurologic: no complaints Exam/Review of Systems Vital Signs Vitals VS - Last 72 Hours, by Label Date Time Temp Pulse Resp B/P Pulse Ox O2 Delivery O2 Flow Rate FiO2 01/15/17 16:11 2.0 01/15/17 16:00 78 01/15/17 15:54 97.7 68 20 125/50 98 01/15/17 12:00 76 01/15/17 11:56 98.4 83 20 126/58 96 01/15/17 08:11 99.0 75 20 140/53 98 01/15/17 08:00 79 01/15/17 08:00 Nasal Cannula 2.0 01/15/17 04:13 86 01/15/17 03:54 98.7 85 21 127/58 92 01/15/17 00:28 87 01/14/17 23:42 99.7 85 21 131/53 95 01/14/17 20:12 84 01/14/17 19:49 98.4 87 21 133/61 93 01/14/17 16:31 97.7 69 18 148/73 96 01/14/17 16:17 2.0 01/14/17 16:00 85 01/14/17 12:00 78 01/14/17 11:59 97.9 86 18 132/64 97 01/14/17 08:25 97.8 82 18 121/50 93 01/14/17 08:00 82 01/14/17 07:47 Nasal Cannula 2.0 01/14/17 05:32 82 98 30 01/14/17 04:40 78 01/14/17 03:14 Nasal Cannula 2.0 01/14/17 01:35 70 97 30 01/14/17 00:15 75 01/14/17 00:00 98.2 75 20 142/62 97 01/13/17 23:35 Nasal Cannula 2.0 01/13/17 22:59 73 97 30 01/13/17 22:59 2.0 01/13/17 20:09 69 01/13/17 20:00 Nasal Cannula 2.0 01/13/17 19:47 99.6 70 20 130/60 91 01/13/17 16:19 2.0 01/13/17 16:19 75 01/13/17 15:27 97.7 78 18 162/71 97 01/13/17 12:24 69 01/13/17 11:27 97.8 65 18 148/74 98 01/13/17 08:20 78 01/13/17 08:09 97.0 54 18 132/63 98 01/13/17 08:00 Nasal Cannula 2.0 01/13/17 05:17 2.0 01/13/17 04:31 70 01/13/17 04:00 97.7 80 20 152/87 98 01/13/17 03:59 70 97 30 01/13/17 01:26 96 97 30 01/13/17 00:26 2.0 01/13/17 00:08 66 01/13/17 00:00 98.5 76 20 158/68 94 01/12/17 21:45 Nasal Cannula 2.0 01/12/17 20:17 70 01/12/17 20:00 2.0 01/12/17 20:00 97.5 78 20 184/77 98 Vital Signs Date Time Temp Pulse Resp B/P Pulse Ox O2 Delivery O2 Flow Rate FiO2 01/15/17 16:11 2.0 01/15/17 16:00 78 01/15/17 15:54 97.7 20 125/50 98 01/15/17 08:00 Nasal Cannula 01/14/17 05:32 30 Intake and Output 01/14/17 01/14/17 01/15/17 15:00 23:00 07:00 Intake Total 860 ml 240 ml Output Total 600 ml 1300 ml Balance 260 ml -1060 ml Exam Constitutional: alert, obese, oriented Psych: nl mood/affect, no complaints Respiratory: clear to auscultation, normal air movement Cardiovascular: nl pulses, regular rate and rhythm, rub, No edema, No murmurs/extra sounds Gastrointestinal: bowel sounds, nl liver, spleen, non-tender, soft, No mass, No rebound or guarding Musculoskeletal: nl extremities to inspection Extremities: normal pulses, No clubbing, No cyanosis, No edema Neurological: MAINTENANCE CHIEF II-XII intact, nl mental status, nl speech, nl strength Additional Comments Bedside Glucose - 72 Hours Test 01/12/17 21:59 01/13/17 07:47 01/13/17 11:44 01/13/17 17:05 Bedside Glucose 113mg/dL (70-220) 254mg/dL (70-220) H 176mg/dL (70-220) 164mg/dL (70-220) Test 01/13/17 21:12 01/14/17 02:52 01/14/17 07:30 01/14/17 11:37 Bedside Glucose 171mg/dL (70-220) 202mg/dL (70-220) 210mg/dL (70-220) 184mg/dL (70-220) Test 01/14/17 17:22 01/14/17 22:10 01/15/17 08:19 01/15/17 11:58 Bedside Glucose 120mg/dL (70-220) 147mg/dL (70-220) 186mg/dL (70-220) 192mg/dL (70-220) Test 01/15/17 17:03 Bedside Glucose 124mg/dL (70-220) Results Result Diagram: 01/15/17 0755 01/15/17 0755 Results 24 hrs Laboratory Tests Test 01/14/17 22:10 01/15/17 07:55 01/15/17 08:19 01/15/17 11:58 Bedside Glucose 147 186 192 White Blood Count 9.0 Red Blood Count 4.80 Hemoglobin 13.0 Hematocrit 42.2 Mean Corpuscular Volume 87.9 Mean Corpuscular Hemoglobin 27.1 L Mean Corpuscular Hemoglobin Concent 30.8 L Red Cell Distribution Width 15.2 H Platelet Count 327 Mean Platelet Volume 9.5 Neutrophils % 70.8 Lymphocytes % 18.4 Monocytes % 7.5 Eosinophils % 2.1 Basophils % 0.6 Nucleated Red Blood Cells % 0.0 Neutrophils # 6.4 Lymphocytes # 1.7 Monocytes # 0.7 Eosinophils # 0.2 Basophils # 0.1 Nucleated Red Blood Cells # 0.0 Sodium Level 140 Potassium Level 3.9 Chloride Level 95 L Carbon Dioxide Level 32 H Anion Gap 17 H Blood Urea Nitrogen 50 H Creatinine 1.38 H Glucose Level 177 Calcium Level 9.2 Test 01/15/17 17:03 Bedside Glucose 124 Medications Medications Current Medications Ondansetron HCl (Zofran Inj) 4 mg Q6H PRN IV NAUSEA AND/OR VOMITING; Start at 16:00 Aspirin (Aspirin) 81 mg DAILY PO Last administered on 01/15/17 08:42; Admin Dose 81 MG; Start 01/07/17 at 09:00 Acetaminophen (Tylenol Tab) 650 mg Q6H PRN PO PAIN LEVEL 1-3 OR FEVER; Start 01/06/17 at 16:00 Morphine Sulfate (morphine) 2 mg Q4H PRN IV PAIN LEVEL 7-10; Start 01/06/17 at 16:00 Enoxaparin Sodium (Lovenox) 30 mg DAILY SC Last administered on 01/15/17 08: 42; Admin Dose 30 MG; Start 01/07/17 at 09:00 Miscellaneous Information 1 ea NOTE XX ; Start 01/06/17 at 21:00 Glucose (Glutose) 15 gm Q15M PRN PO DECREASED GLUCOSE; Start 01/06/17 at 21:00 Glucose (Glutose) 22.5 gm Q15M PRN PO DECREASED GLUCOSE; Start 01/06/17 at 21: 00 Dextrose (D50w Syringe) 25 ml Q15M PRN IV DECREASED GLUCOSE; Start 01/06/17 at 21:00 Dextrose (D50w Syringe) 50 ml Q15M PRN IV DECREASED GLUCOSE; Start 01/06/17 at 21:00 Glucagon (Glucagen) 1 mg Q15M PRN IM DECREASED GLUCOSE; Start 01/06/17 at 21: 00 Glucose (Glutose) 15 gm Q15M PRN BUCCAL DECREASED GLUCOSE; Start 01/06/17 at 21:00 Loratadine (Claritin) 10 mg DAILY PO Last administered on 01/15/17 08:43; Admin Dose 10 MG; Start 01/08/17 at 09:00 Hydralazine HCl (Apresoline) 25 mg Q8 PO Last administered on 01/15/17 14:05 ; Admin Dose 25 MG; Start 01/08/17 at 14:00 Metoprolol Succinate (Toprol Xl) 50 mg DAILY PO Last administered on 08:43; Admin Dose 50 MG; Start 01/08/17 at 15:00 Diagnostic Test (Pha) (Accu-Chek) 1 ea 02 XX Last administered on 01/14/17 02 :52; Admin Dose 1 EA; Start 01/09/17 at 02:00 Insulin Glargine (Lantus) 50 unit DAILY@08 SC Last administered on 01/15/17 08:40; Admin Dose 50 UNIT; Start 01/11/17 at 08:00 Empaglifozin (Jardiance) 10 mg DAILY@08 PO Last administered on 01/15/17 08: 42; Admin Dose 10 MG; Start 01/11/17 at 08:00 Linagliptin (Tradjenta) 5 mg DAILY PO Last administered on 01/15/17 08:42; Admin Dose 5 MG; Start 01/11/17 at 09:00 Nifedipine (Procardia Xl) 60 mg BID PO Last administered on 01/15/17 08:42; Admin Dose 60 MG; Start 01/13/17 at 21:00 Insulin Human NPH (Humulin N) 60 unit DAILY@22 SC Last administered on 22:15; Admin Dose 60 UNIT; Start 01/14/17 at 22:00 TONY KELLY MD Jan 15, 2017 18:28
[2017-01-15] MEDS ORDERED: ASPI81TA3 PO (18:33)
[2017-01-15] MEDS ORDERED: FURO-110 PO (18:33)
[2017-01-15] MEDS ORDERED: NIFE60TA7 PO (18:33)
[2017-01-15] MEDS ORDERED: METO-319 PO (18:33)
[2017-01-15] MEDS ORDERED: HYDR-3671 PO (18:33)
--- NOTE | 2017-01-19 22:37 | DS ---
Date/Time of Note Date/Time of Note DATE: 01/19/17 TIME: 22:35 Discharge Summary Admission/Discharge Info Admit Date/Time Jan 06, 2017 at 13:10 Discharge Date/Time Jan 15, 2017 at 21:00 Patient Condition: Stable Hx of Present Illness Patient with severe obesity, hypertension, hypocholesterolemia, diabetes, congestive heart failure comes in with increasing shortness of breath. Hospital Course - Diastolic acute on chronic congestive heart failure exacerbation. Continue Lasix. Dr. Cota is following in cardiology consultation. Continue to monitor electrolytes. - Hypertension. - Diabetes mellitus type 2 with hemoglobin A1c 9.2. Continue Lantus and pre- meal NovoLog as well as NovoLog per mild algorithm sliding scale. Dr. Bartholomew is following in endocrinology consultation. - Acute on chronic kidney disease. Continue to monitor BUN and creatinine. - Possible sleep apnea, continue BiPAP per pulmonology. Dr. Bravo is following in pulmonology consultation. - Hyperlipidemia. Continue statin. - Morbid obesity with BMI 56. Home Meds Active Scripts Furosemide* (Lasix*) 20 Mg Tablet, 20 MG PO BID for 30 Days, TAB Prov:MADHU CAZARES 01/15/17 Hydralazine Hcl* (Hydralazine Hcl*) 25 Mg Tab, 25 MG PO Q8 for 30 Days, TAB Prov:MADHU CAZARES 01/15/17 Metoprolol Succinate* (Toprol XL*) 50 Mg Tab.er.24h, 50 MG PO DAILY for 30 Days Prov:MADHU CAZARES 01/15/17 Nifedipine (Afeditab CR) 60 Mg Tablet.sa, 60 MG PO BID for 30 Days Prov:MADHU CAZARES 01/15/17 Aspirin (Aspirin) 81 Mg Chew, 81 MG PO DAILY for 30 Days, TAB Prov:MADHU CAZARES 01/15/17 Reported Medications Empagliflozin/Linagliptin (Glyxambi 25 mg-5 mg Tablet) 1 Each Tablet, 1 EACH PO QAM, TAB 01/06/17 Clonazepam* (Clonazepam*) 0.5 Mg Tablet, 0.25 MG PO NEEDED Y for ANXIETY, TAB 01/06/17 Pantoprazole* (Pantoprazole*) 40 Mg Tablet.dr, 40 MG PO DAILY, TAB 01/06/17 Trazodone Hcl* (Trazodone Hcl*) 50 Mg Tablet, 50 MG PO QHS, #30 TAB 01/06/17 Paroxetine Hcl* (Paroxetine*) 10 Mg Tablet, 10 MG PO DAILY, TAB 01/06/17 Insulin Regular, Human (Humulin R U-500 Kwikpen) 500 Unit/1 Ml Insuln.pen, 0 SQ TID TAKE 33 UNIT-QAM AND QNOON, AND 12 UNIT-QPM 01/06/17 Insulin Glargine,Hum.rec.anlog (Toujeo Solostar) 300 Unit/1 Ml Insuln.pen, 15 UNIT SQ AC BREAKFAST 08/07/16 Pramlintide (Symlinpen 120) 2,700 Mcg/2.7 Ml Pen.injctr, 120 MCG SC TID 08/07/16 Albuterol Sulfate* (Ventolin HFA*) 18 Gm Hfa.aer.ad, 2 PUFF INHALATION Q4H, #1 INHALER 08/06/16 Acetaminophen (PAIN & FEVER) 500 Mg Tablet, 1000 MG PO Q6H, TAB 03/06/16 Isosorbide Mononitrate* (Isosorbide Mononitrate*) 60 Mg Tab.er.24h, 60 MG PO DAILY, TAB 03/06/16 Atorvastatin* (Atorvastatin*) 40 Mg Tablet, 40 MG PO HS, TAB 05/07/14 Discontinued Reported Medications Bumetanide* (Bumetanide*) 1 Mg Tablet, 1 MG PO BID, TAB 01/06/17 Metoprolol Succinate* (Toprol XL*) 100 Mg Tab.sr.24h, 100 MG PO DAILY, #30 TAB 03/06/16 Clopidogrel Bisulfate* (Clopidogrel Bisulfate*) 75 Mg Tablet, 75 MG PO DAILY, TAB 11/28/14 Discontinued Scripts Potassium Chloride* (Potassium Chloride*) 20 Meq Tablet.er, 20 MEQ PO DAILY, # 30 TAB.SA Prov:ENRRIQUE AGUILAR 03/14/16 Follow-up Plan f/up with PMD in 2 weeks, f/up with Dr Russell in 2 weeks, f/up with Dr Cota in 2 weeks.BMP in 1 week. Primary Care Provider Ari Alexander MD Time spent on discharge: > 30 minutes MADHU CAZARES Jan 19, 2017 22:37
== END 2017-01-15 21:00 | disposition home or self-care (01) | DRG 291 ==
LOC: E/R 10:39 → MS4 13:10 → UNDOADMIN 14:29 → MS4 15:04
PROVIDERS: ADMIT Internal Medicine; ATTEND Internal Medicine
DX: I13.0 Hypertensive heart and chronic kidney disease with heart failure and stage 1 through stage 4 chronic kidney disease, or unspecified chronic kidney disease (principal); I50.33 Acute on chronic diastolic (congestive) heart failure; N17.9 Acute kidney failure, unspecified; E11.22 Type 2 diabetes mellitus with diabetic chronic kidney disease; E11.65 Type 2 diabetes mellitus with hyperglycemia; Z68.43 Body mass index [BMI] 50.0-59.9, adult; I11.0 Hypertensive heart disease with heart failure; N18.9 Chronic kidney disease, unspecified; E66.01 Morbid (severe) obesity due to excess calories; N18.3 Chronic kidney disease, stage 3 (moderate); G47.33 Obstructive sleep apnea (adult) (pediatric)
CPT/HCPCS: 36415; 36600; 71010; 80048; 80053; 80061; 82803; 82947; 82962; 83036; 83880; 84484; 85025; 85610; 85730; 93005; 93306; 94660; 96374; J1940; J1650; J1815

== ENCOUNTER 2017-01-18 20:54 | Inpatient (IN) | payer MEDICARE, OTHER ==
[~2017-01-18] VITALS: Ht 165.1 cm; Wt 131.5 kg
[~2017-01-18 20:54] MED LIST changes: -ARIP10TA13 PO; +ASPI81TA3 PO; -BRIM10DR12 BOTH EYES; +CLON0.5T4 PO; -CLOP75TA4 PO; -COSO10 BOTH EYES; -FLUT16SP17 NASAL; +FURO-110 PO; -FURO40TA4 PO; +HYDR-3671 PO; +INSU500I SQ; -LANT3I SC; +METO-319 PO; -METO-336 PO; +NIFE60TA7 PO; -NOVO3I SC; -NOVO7030 SC; -OMEP20CA16 PO; +PANT40TA4 PO; +PARO10TA76 PO; -POTA20TA96 PO; -PRED20TA PO; -SERT50TA PO; +TRAZ50TA18 PO
[2017-01-18] MEDS ORDERED: ASPIRIN 81 MG TAB PO ONE (21:00)
[2017-01-18] MEDS ORDERED: FUROSEMIDE 40 MG INJ IV ONE ×2 (21:00→23:00)
[2017-01-18] MEDS ORDERED: NITROGLYCERIN (SL) 0.4 MG TAB SL ONE (21:00)
--- NOTE | 2017-01-18 22:13 | ERD ---
ER Documentation Chief Complaint Chief Complaint pt bib family for sob, o2 sat is 92 on ra HPI The patient is a 76-year-old female, presenting to the ER because of acute on chronic shortness of breath, worse tonight. She was recently discharged from the hospital for acute CHF. She complains of orthopnea, paroxysmal nocturnal dyspnea, denies fever, cough, neck pain, chest pain, complains of chronic abdominal pain, denies dysuria, constipation, diarrhea. She does not smoke or drink Past medical history: Sleep apnea on CPAP in the evening, history of CHF, CAD, hypertension, diabetes mellitus, chronic kidney disease, left eye blindness Past Surgical history: Stent PCI, left shoulder arthroscopy ROS All systems reviewed and are negative except as per history of present illness. Medications Home Meds Active Scripts Furosemide* (Lasix*) 20 Mg Tablet, 20 MG PO BID for 30 Days, TAB Prov:MADHU CAZARES 01/15/17 Hydralazine Hcl* (Hydralazine Hcl*) 25 Mg Tab, 25 MG PO Q8 for 30 Days, TAB Prov:MADHU CAZARES 01/15/17 Metoprolol Succinate* (Toprol XL*) 50 Mg Tab.er.24h, 50 MG PO DAILY for 30 Days Prov:MADHU CAZARES 01/15/17 Nifedipine (Afeditab CR) 60 Mg Tablet.sa, 60 MG PO BID for 30 Days Prov:MADHU CAZARES 01/15/17 Aspirin (Aspirin) 81 Mg Chew, 81 MG PO DAILY for 30 Days, TAB Prov:MADHU CAZARES 01/15/17 Reported Medications Empagliflozin/Linagliptin (Glyxambi 25 mg-5 mg Tablet) 1 Each Tablet, 1 EACH PO QAM, TAB 01/06/17 Clonazepam* (Clonazepam*) 0.5 Mg Tablet, 0.25 MG PO NEEDED Y for ANXIETY, TAB 01/06/17 Pantoprazole* (Pantoprazole*) 40 Mg Tablet.dr, 40 MG PO DAILY, TAB 01/06/17 Trazodone Hcl* (Trazodone Hcl*) 50 Mg Tablet, 50 MG PO QHS, #30 TAB 01/06/17 Paroxetine Hcl* (Paroxetine*) 10 Mg Tablet, 10 MG PO DAILY, TAB 01/06/17 Insulin Regular, Human (Humulin R U-500 Kwikpen) 500 Unit/1 Ml Insuln.pen, 0 SQ TID TAKE 33 UNIT-QAM AND QNOON, AND 12 UNIT-QPM 01/06/17 Insulin Glargine,Hum.rec.anlog (Jennie Mcintyre) 300 Unit/1 Ml Insuln.pen, 15 UNIT SQ AC BREAKFAST 08/07/16 Pramlintide (Symlinpen 120) 2,700 Mcg/2.7 Ml Pen.injctr, 120 MCG SC TID 08/07/16 Albuterol Sulfate* (Ventolin HFA*) 18 Gm Hfa.aer.ad, 2 PUFF INHALATION Q4H, #1 INHALER 08/06/16 Acetaminophen (PAIN & FEVER) 500 Mg Tablet, 1000 MG PO Q6H, TAB 03/06/16 Isosorbide Mononitrate* (Isosorbide Mononitrate*) 60 Mg Tab.er.24h, 60 MG PO DAILY, TAB 03/06/16 Atorvastatin* (Atorvastatin*) 40 Mg Tablet, 40 MG PO HS, TAB 05/07/14 Discontinued Reported Medications Bumetanide* (Bumetanide*) 1 Mg Tablet, 1 MG PO BID, TAB 01/06/17 Metoprolol Succinate* (Toprol XL*) 100 Mg Tab.sr.24h, 100 MG PO DAILY, #30 TAB 03/06/16 Clopidogrel Bisulfate* (Clopidogrel Bisulfate*) 75 Mg Tablet, 75 MG PO DAILY, TAB 11/28/14 Discontinued Scripts Potassium Chloride* (Potassium Chloride*) 20 Meq Tablet.er, 20 MEQ PO DAILY, # 30 TAB.SA Prov:ENRRIQUE AGUILAR 03/14/16 Allergies Allergies: Coded Allergies: No Known Drug Allergy (Verified Allergy, Unknown, 01/18/17) PMhx/Soc History of Surgery: Yes Anesthesia Reaction: No Hx Neurological Disorder: No Hx Respiratory Disorders: Yes (CHF) Hx Cardiac Disorders: Yes (stent) Hx Psychiatric Problems: No Hx Miscellaneous Medical Probl: No Hx Alcohol Use: No Hx Substance Use: No Hx Tobacco Use: No Physical Exam Vitals Vital Signs Date Time Temp Pulse Resp B/P Pulse Ox O2 Delivery O2 Flow Rate FiO2 01/18/17 23:59 71 22 133/71 99 BIPAP 01/18/17 22:35 77 100 60 01/18/17 22:25 77 116/53 99 BIPAP 01/18/17 21:01 97.6 113 45 166/77 93 01/18/17 21:00 106 100 60 Physical Exam Const: Mild acute distress. Head: Atraumatic. Eyes: Normal Conjunctiva. ENT: Normal External Ears, Nose and Mouth. Neck: Full range of motion. No meningismus. Resp: Tachypneic, mild basilar crackle, Cardio: Regular Tachycardic Abd: Soft, non distended, normal bowel sounds, non tender. Skin: No petechiae or rashes. Back: No midline or flank tenderness. Ext: Bilateral leg edema, no calf tenderness Neur: Awake and alert. No focal deficit Psych: Normal Mood and Affect. Result Diagram: 01/18/17210201/18/172102 Results 24 hrs Laboratory Tests Test 01/18/17 21:03 01/18/17 22:31 01/18/17 23:25 01/18/17 23:54 White Blood Count 21.110^3/ul Red Blood Count 4.9210^6/ul Hemoglobin 13.6g/dl Hematocrit 44.3% Mean Corpuscular Volume 90.0fl Mean Corpuscular Hemoglobin 27.6pg Mean Corpuscular Hemoglobin Concent 30.7g/dl Red Cell Distribution Width 15.6% Platelet Count 07715^3/UL Mean Platelet Volume 9.3fl Neutrophils % 55.9% Lymphocytes % 31.6% Monocytes % 8.6% Eosinophils % 1.9% Basophils % 0.4% Nucleated Red Blood Cells % 0.1/100WBC Neutrophils # 11.810^3/ul Lymphocytes # 6.710^3/ul Monocytes # 1.810^3/ul Eosinophils # 0.410^3/ul Basophils # 0.110^3/ul Nucleated Red Blood Cells # 0.010^3/ul Sodium Level 145mmol/L Potassium Level 4.2mmol/L Chloride Level 102mmol/L Carbon Dioxide Level 25mmol/L Anion Gap 22 Blood Urea Nitrogen 32mg/dl Creatinine 1.67mg/dl Glucose Level 224mg/dl Calcium Level 9.7mg/dl Total Bilirubin 0.1mg/dl Direct Bilirubin 0.00mg/dl Indirect Bilirubin 0.1mg/dl Aspartate Amino Transf (AST/SGOT) 49IU/L Alanine Aminotransferase (ALT/SGPT) 43IU/L Alkaline Phosphatase 149IU/L Troponin I 0.017ng/ml Total Protein 9.0g/dl Albumin 4.5g/dl Globulin 4.50g/dl Albumin/Globulin Ratio 1.00 Lipase 106U/L Blood Gas Specimen Source Blood arterial Arterial Blood Date Drawn 01/18/2017 10:35:38 PM Arterial Blood pH (Temp corrected) 7.353 Arterial Blood pCO2 (Temp correct) 48.7mmhg Arterial Blood pO2 (Temp corrected) 106.1mmHG Arterial Blood HCO3 26.5mmol/L Arterial Blood Base Excess 0.3mmol/L Arterial Blood Oxygen Saturation 97.7mmHG [place] Test ACCEPTAB Arterial Blood Gas Puncture Site Right Radial Arterial Blood Carboxyhemoglobin 0.3% Arterial Blood Methemoglobin 0.5% Blood Gas A-a O2 Differential 268.1mmHg Oxyhemoglobin Percent 96.9% Total Hemoglobin 13.7g/dl Blood Gas Temperature 37.0C Blood Gas Respiration Rate 18.0 Blood Gas Actual Respiration Rate 27 Blood Gas Modality MASK - BIPAP FiO2 60.0% Blood Gas IPAP/EPAP Ratio 18/5 Blood Gas Notified Whom MG Blood Gas Notified Time 01/18/2017 10:45:12 PM Prothrombin Time 11.7Sec Prothrombin Time Ratio 0.9 INR International Normalized Ratio 0.86 Activated Partial Thromboplast Time 26.0Sec Lactic Acid Level 2.2mmol/L B-Type Natriuretic Peptide 575PG/ML Urine Color STRAW Urine Clarity CLEAR Urine pH 5.0 Urine Specific [place] 1.006 Urine Ketones NEGATIVEmg/dL Urine Nitrite NEGATIVEmg/dL Urine Bilirubin NEGATIVEmg/dL Urine Urobilinogen NEGATIVEmg/dL Urine Leukocyte Esterase NEGATIVELeu/ul Urine Hemoglobin NEGATIVEmg/dL Urine Glucose 1+mg/dL Urine Total Protein NEGATIVEmg/dl Current Medications Medications (Trade) Dose Ordered Sig/Errol Route PRN Reason Start Time Stop Time Status Last Admin Dose Admin Furosemide (Lasix) 80 mg ONCE ONCE IV 01/18/17 21:00 01/18/17 21:01 DC 01/18/17 21:04 Aspirin (Aspirin) 324 mg ONCE ONCE PO 01/18/17 21:00 01/18/17 21:01 DC 01/18/17 21:04 Nitroglycerin 3 tab 3 tab ONCE ONCE SL 01/18/17 21:00 01/18/17 21:01 DC 01/18/17 21:04 Vancomycin HCl 250 ml @ 125 mls/hr ONCE IVPB 01/18/17 23:00 01/19/17 00:59 DC 01/18/17 23:00 Cefepime HCl (Maxipime 1gm/50 ml (Pmx)) 50 ml @ 100 mls/hr ONCE ONCE IVPB 01/18/17 23:00 01/18/17 23:29 DC 01/18/17 23:54 Furosemide (Lasix) 40 mg ONCE ONCE IV 01/18/17 23:00 01/18/17 23:01 DC 01/18/17 23:18 Procedures/[place] [address] Radiology Main Line: [phone] DIAGNOSTIC IMAGING REPORT Patient: TAMAR TIERNEY : 1940 Age: 76 Sex: F MR #: [id number] DOS: 01/18/172057 Ordering MD: MUMTAZ WEBER MD Location: E/R Room/Bed: PROCEDURE: XR Chest. CLINICAL INDICATION: Shortness of breath TECHNIQUE: Single portable view of the chest was obtained COMPARISON: March 27, 2016 FINDINGS: The trachea is midline. The cardiac silhouette and pulmonary vascularity are prominent. There are bilateral interstitial infiltrates. The costophrenic angles are sharp. IMPRESSION: 1. Cardiomegaly and pulmonary vascular congestion with bilateral interstitial infiltrates/edema. RPTAT: AAPP Physician Sophia Date Time Electronically viewed and signed by Physician Sophia on 01/18/2017 22:25 JL/ CC: MUMTAZ WEBER MD EK hrs. Read by emergency physician Rate/Rhythm: Sinus tachycardia 109 beats/min QRS, ST, T-waves: No ST elevation, Right andrea axis, inferolateral ST abnormality Impression: Abnormal EKG EK hrs. Read by emergency physician Rate/Rhythm: Normal sinus rhythm 72 beats/min QRS, ST, T-waves: No ST elevation, Right andrea axis, inferolateral ST abnormality Impression: Abnormal EKG ABG on BiPAP FiO2 60%, pH 7.35, PCO2 48, PO2 106 MEDICAL MAKING DECISION: The patient is for 76 female, presenting with acute respiratory failure, acute severe sepsis, acute pneumonia, acute CHF. She was treated with BiPAP immediately upon arrival to the ER and she was able to tolerate BiPAP well. He was treated with vancomycin IV, cefepime IV for acute pneumonia, Lasix 40 mg IV for acute CHF exacerbation and Thakakr catheter. The differential diagnoses considered include but are not limited to pneumonia, aspiration pneumonia, UTI, pyelonephritis Admit MDM: Patient's infectious symptoms have not stabilized and the patient is at risk of rapid decompensation. The patient will be admitted for careful hydration, antibiotic therapy, and infectious source control. Severe Sepsis criteria: Infectious source: Pneumonia End organ damage indicated by: Lactate > 2.0 mmol/L Acute Resp Failure (sat < 92% w/o oxygen) Sepsis Management: Time of recognition of severe sepsis/septic shock:12:20 am Within 3 hours of recognition: Blood cultures x 2 before broad-spectrum antibiotics: Yes 30 ml/kg NS bolus NOT completed because of concurrent acute CHF and CKD Initial lactate 2.2 Repeat lactate pending Septic Shock Assessment: Any lactic acid > 4.0 no Persistent hypotension (SBP < 90 or 40 mmHg drop, MAP < 65) despite 30 mL/kg IV fluid bolusno Critical Care: Critical care time 35 minutes Emergent fluid management while maintaining close respiratory support. Provision of immediate and broad-spectrum antibiotic therapy. Simultaneous assessment for possible sources in order to direct targeted therapy. Consideration for invasive and chemical support to prevent cardiopulmonary collapse. Departure Diagnosis: Primary Impression: Acute respiratory failure Additional Impressions: Severe sepsis CHF (congestive heart failure) Pneumonia Condition: Critical Comments I discussed the findings with the patient. I discussed the patient with the on- call hospitalist Dr. Gagnon at 11:10 PM who was made aware of the lab, the treatment, the patient condition. The patient is admitted to ICU Disclaimer: Inadvertent spelling and grammatical errors are likely due to EHR/ dictation software use and do not reflect on the overall quality of patient care. Also, please note that the electronic time recorded on this note does not necessarily reflect the actual time of the patient encounter. TONY ONITVEROS MD Jan 18, 2017 22:13
--- NOTE | 2017-01-18 22:25 | RADRPT ---
PROCEDURE: XR Chest. CLINICAL INDICATION: Shortness of breath TECHNIQUE: Single portable view of the chest was obtained COMPARISON: March 27, 2016 FINDINGS: The trachea is midline. The cardiac silhouette and pulmonary vascularity are prominent. There are bi lateral interstitial infiltrates. The costophrenic angles are sharp. IMPRESSION: 1. Cardiomegaly and pulmonary vascular congestion with bilateral interstitial infiltrates/edema. RPTAT: AAPP Physician Sophia Date Time Electronically viewed and signed by Paulette Taveras Physician on 01/18/2017 22:25 ALFONSO/
[2017-01-18] MEDS ORDERED: VANCOMYCIN 1 GM (PMX) 250 ML IVPB SCH (23:00)
[2017-01-18] MEDS ORDERED: CEFEPIME 1GM/50 ML (PMX) 50 ML IVPB ONE (23:00)
[2017-01-19] VITALS (25 sets, daily range): BP systolic 110–154; BP diastolic 38–75; PULSE 69–82; RESP 16–27; Ht 165.1 cm; Wt 131.5 kg
[2017-01-19] MEDS ORDERED: ALBUTEROL/IPRATROPIUM (NEB) 3 ML AMP NEB PRN (02:00)
[2017-01-19] MEDS ORDERED: morphine 2 MG INJ IV PRN (02:00)
[2017-01-19] MEDS ORDERED: ONDANSETRON 4 MG INJ IV PRN (02:00)
[2017-01-19] MEDS ORDERED: LORAZEPAM 2 MG INJ IV PRN (02:00)
[2017-01-19] MEDS ORDERED: ACETAMINOPHEN 650 MG SUPP PR PRN (02:00)
[2017-01-19] MEDS ORDERED: VANCOMYCIN IV PER PHARMACY XX SCH (05:00)
[2017-01-19] MEDS ORDERED: DEXTROSE 50% 50 ML SYRINGE IV PRN ×2 (06:30)
[2017-01-19] MEDS ORDERED: clonAZEPAM 0.5 MG TAB PO PRN (06:30)
[2017-01-19] MEDS ORDERED: GLUCAGON 1 MG INJ IM PRN (06:30)
[2017-01-19] MEDS ORDERED: GLUCOSE GEL 15 GRAM TUBE PO PRN ×2 (06:30)
[2017-01-19] MEDS ORDERED: GLUCOSE GEL 15 GRAM TUBE BUCCAL PRN (06:30)
--- NOTE | 2017-01-19 06:31 | HP ---
Date/Time of Note Date/Time of Note DATE: 01/19/17 TIME: 06:29 Assessment/Plan VTE Prophylaxis VTE Prophylaxis Intervention: heparin Lines/Catheters IV Catheter Type (from Nrsg): Peripheral IV Urinary Cath still in place: Yes Reason Cath still needed: terminal illness/intractable pain Assessment/Plan Assessment/Plan 1. Acute on chronic CHF exacerbation, diastolic -Continue diuresis with IV Lasix -Continue her home cardiac medications -Cardiology consult 2. Insulin-dependent diabetes -Continue insulin with adjustment as needed 3. Hypertension -Continue home BP meds, adjust as needed 4. CKD -Avoid nephrotoxins. Renally dose all medication -Nephrology consult as needed HPI/ROS Admit Date/Time Admit Date/Time Jan 19, 2017 at 01:40 Hx of Present Illness This is a 76-year-old female with a history of hypertension, CHF, insulin- dependent diabetes, CKD who presented to the ER complaining of shortness of breath. Patient was just admitted here for CHF and was discharged 2 days ago. She said her shortness of breath worsened since yesterday. Denied chest pain. When presented to the ER, chest x-ray showed Cardiomegaly and pulmonary vascular congestion with bilateral interstitial infiltrates/edema. She was given 80 mg of IV Lasix in the ER. She was placed on BiPAP and admitted to ICU. PMH/Family/Social Past Surgical History Past Surgical Hx: no surgical history, other Social History Smoking Status: Never smoker Exam/Review of Systems Vital Signs Vitals Vital Signs Date Time Temp Pulse Resp B/P Pulse Ox O2 Delivery O2 Flow Rate FiO2 01/19/17 06:00 75 17 130/73 100 BIPAP 01/19/17 05:10 45 01/19/17 04:00 98.2 Intake and Output 01/18/17 01/18/17 01/19/17 15:00 23:00 07:00 Intake Total 300 ml Output Total 550 ml Balance -250 ml Exam Constitutional: other (On BiPAP. Mild distress) Head: atraumatic, normocephalic Eyes: PERRL Respiratory: diminished breath sounds Cardiovascular: nl pulses, regular rate and rhythm Gastrointestinal: soft, tender Extremities: normal pulses Labs Result Diagram: 01/19/17 0325 01/19/17 0325 Medications Medications Current Medications Ondansetron HCl (Zofran Inj) 4 mg Q6H PRN IV NAUSEA AND/OR VOMITING; Start at 02:00 Acetaminophen (Tylenol Supp) 650 mg Q4H PRN [place] PAIN LEVEL 1-3 OR FEVER; Start 01/19/17 at 02:00 Morphine Sulfate (morphine) 2 mg Q4H PRN IV PAIN LEVEL 7-10; Start 01/19/17 at 02:00 Lorazepam (Ativan) 0.5 mg Q4H PRN IV ANXIETY; Start 01/19/17 at 02:00 Famotidine 20 mg 20 mg DAILY IV ; Start 01/19/17 at 09:00 Cefepime HCl 50 ml @ 100 mls/hr Q12 IVPB ; Start 01/19/17 at 09:00 Vancomycin HCl/ Sodium Chloride (Vancocin/NS) 250 ml @ 83.333 mls/ hr Q24H IVPB ; Start 01/19/17 at 11:00 Miscellaneous Information (* Miscellaneous Pharmacy Order) Discontinue current oral sulfonylur... ONCE ONCE XX ; Start 01/19/17 at 06:30; Stop 01/19/17 at 06:31 Diagnostic Test (Pha) (Accu-Chek) 1 ea 02 XX ; Start 01/20/17 at 02:00 Insulin Glargine (Lantus) 10 unit QHS SC ; Start 01/19/17 at 21:00 Miscellaneous Information (* Miscellaneous Pharmacy Order) HYPOGLYCEMIA PROTOCOL w... ONCE ONCE XX ; Start 01/19/17 at 06:30; Stop 01/19/17 at 06:31 Miscellaneous Information (* Miscellaneous Pharmacy Order) Discontinue all previ... ONCE ONCE XX ; Start 01/19/17 at 06:30; Stop 01/19/17 at 06:31 Miscellaneous Information 1 ea NOTE XX ; Start 01/19/17 at 06:30 Glucose (Glutose) 15 gm Q15M PRN PO DECREASED GLUCOSE; Start 01/19/17 at 06:30 Glucose (Glutose) 22.5 gm Q15M PRN PO DECREASED GLUCOSE; Start 01/19/17 at 06: 30 Dextrose (D50w Syringe) 25 ml Q15M PRN IV DECREASED GLUCOSE; Start 01/19/17 at 06:30 Dextrose (D50w Syringe) 50 ml Q15M PRN IV DECREASED GLUCOSE; Start 01/19/17 at 06:30 Glucagon (Glucagen) 1 mg Q15M PRN IM DECREASED GLUCOSE; Start 01/19/17 at 06: 30 Glucose (Glutose) 15 gm Q15M PRN BUCCAL DECREASED GLUCOSE; Start 01/19/17 at 06:30 JAVED URIOSTEGUI MD Jan 19, 2017 06:31
[2017-01-19] MEDS: FUROSEMIDE 20 MG INJ IV SCH (06:51)
[2017-01-19] MEDS: INSULIN ASPART [NOVOLOG] 3 ML PEN SC SCH ×5 (07:35→21:26)
[2017-01-19] MEDS ORDERED: FAMOTIDINE 20 MG INJ IV SCH (09:00)
--- NOTE | 2017-01-19 09:24 | CONS ---
Date/Time of Note Date/Time of Note DATE: 01/19/17 TIME: 09:22 Assessment/Plan Assessment/Plan Additional Assessment/Plan Chest x-ray was reviewed from today which is again showing evidence of fluid overload and pulmonary edema. Cardiomegaly is present as well. Assessment recommendations; 1. Patient admitted again for decompensated CHF. Feeling better on BiPAP patient has been getting intravenous Lasix with significant improvement in symptoms. 2. Chronic renal insufficiency. 3. History of diabetes and hypertension. 4. Underlying morbid obesity. With possibly underlying sleep apnea as well. 5. History of coronary artery disease. 6. Anemia. Continue current treatment. Continue BiPAP at current settings. Wean down FiO2 to keep O2 saturation around 92-94%. Consultation Date/Type/Reason Admit Date/Time Jan 19, 2017 at 01:40 Initial Consult Date Type of Consultation: Pulmonary/critical care 24 HR Interval Summary Free Text/Dictation Patient's condition is slightly improved. Still requiring 45% FiO2 via BiPAP. Denies any chest pain, wheezing, cough or sputum production. General exam; elderly woman, morbidly obese, awake, currently in no distress. Exam/Review of Systems Vital Signs Vitals Vital Signs Date Time Temp Pulse Resp B/P Pulse Ox O2 Delivery O2 Flow Rate FiO2 01/19/17 08:00 100.5 74 20 119/48 98 BIPAP 01/19/17 05:10 45 Intake and Output 01/18/17 01/18/17 01/19/17 15:00 23:00 07:00 Intake Total 300 ml Output Total 550 ml Balance -250 ml Exam HEENT exam; supple neck, JVD difficult to see because of short neck. Patient is on BiPAP. Patient is edentulous. Pupils are midsize bilaterally. No neck masses. No neck bruits. Chest exam; diminished breath sounds throughout. S1-S2 audible, no murmurs. Regular rhythm. Abdomen exam; soft, protuberant. Nontender. No organomegaly. Bowel sounds audible. Extremities; trace edema. PROTOCOL MANAGER exam; no focal deficit. Results Result Diagram: 01/19/17 0325 01/19/17 0325 Results 24 hrs Laboratory Tests Test 01/18/17 21:03 01/18/17 22:31 01/18/17 23:25 01/18/17 23:54 White Blood Count 21.1 #H Red Blood Count 4.92 Hemoglobin 13.6 Hematocrit 44.3 Mean Corpuscular Volume 90.0 Mean Corpuscular Hemoglobin 27.6 L Mean Corpuscular Hemoglobin Concent 30.7 L Red Cell Distribution Width 15.6 H Platelet Count 434 #H Mean Platelet Volume 9.3 Neutrophils % 55.9 Lymphocytes % 31.6 Monocytes % 8.6 Eosinophils % 1.9 Basophils % 0.4 Nucleated Red Blood Cells % 0.1 H Neutrophils # 11.8 H Lymphocytes # 6.7 H Monocytes # 1.8 H Eosinophils # 0.4 Basophils # 0.1 Nucleated Red Blood Cells # 0.0 Sodium Level 145 H Potassium Level 4.2 Chloride Level 102 Carbon Dioxide Level 25 Anion Gap 22 H Blood Urea Nitrogen 32 H Creatinine 1.67 H Glucose Level 224 H Calcium Level 9.7 Total Bilirubin 0.1 L Direct Bilirubin 0.00 Indirect Bilirubin 0.1 Aspartate Amino Transf (AST/SGOT) 49 H Alanine Aminotransferase (ALT/SGPT) 43 Alkaline Phosphatase 149 H Troponin I 0.017 Total Protein 9.0 H Albumin 4.5 Globulin 4.50 H Albumin/Globulin Ratio 1.00 Lipase 106 Blood Gas Specimen Source Blood arterial Arterial Blood Date Drawn 01/18/2017 10:35:38 PM Arterial Blood pH (Temp corrected) 7.353 Arterial Blood pCO2 (Temp correct) 48.7 H Arterial Blood pO2 (Temp corrected) 106.1 H Arterial Blood HCO3 26.5 H Arterial Blood Base Excess 0.3 Arterial Blood Oxygen Saturation 97.7 [place] Test ACCEPTAB Arterial Blood Gas Puncture Site Right Radial Arterial Blood Carboxyhemoglobin 0.3 Arterial Blood Methemoglobin 0.5 Blood Gas A-a O2 Differential 268.1 H Oxyhemoglobin Percent 96.9 Total Hemoglobin 13.7 Blood Gas Temperature 37.0 Blood Gas Respiration Rate 18.0 Blood Gas Actual Respiration Rate 27 Blood Gas Modality MASK - BIPAP FiO2 60.0 Blood Gas IPAP/EPAP Ratio 18/5 Blood Gas Notified Whom MG Blood Gas Notified Time 01/18/2017 10:45:12 PM Prothrombin Time 11.7 L Prothrombin Time Ratio 0.9 INR International Normalized Ratio 0.86 Activated Partial Thromboplast Time 26.0 Lactic Acid Level 2.2 *H B-Type Natriuretic Peptide 575 H Urine Color STRAW Urine Clarity CLEAR Urine pH 5.0 Urine Specific [place] 1.006 Urine Ketones NEGATIVE Urine Nitrite NEGATIVE Urine Bilirubin NEGATIVE Urine Urobilinogen NEGATIVE Urine Leukocyte Esterase NEGATIVE Urine Hemoglobin NEGATIVE Urine Glucose 1+ H Urine Total Protein NEGATIVE Test 01/19/17 01:45 01/19/17 02:30 01/19/17 03:25 Lactic Acid Level 1.6 2.1 H Blood Gas Specimen Source Blood arterial Arterial Blood Date Drawn 01/19/2017 3:40:16 AM Arterial Blood pH (Temp corrected) 7.386 Arterial Blood pCO2 (Temp correct) 39.2 Arterial Blood pO2 (Temp corrected) 157.7 H Arterial Blood HCO3 23.0 Arterial Blood Base Excess -1.8 Arterial Blood Oxygen Saturation 99.0 [place] Test ACCEPTAB Arterial Blood Gas Puncture Site Right Radial Arterial Blood Carboxyhemoglobin 0.3 Arterial Blood Methemoglobin 0.3 Blood Gas A-a O2 Differential 227.0 H Oxyhemoglobin Percent 98.4 Total Hemoglobin 11.7 L Blood Gas Temperature 37.0 Blood Gas Respiration Rate 18.0 Blood Gas Actual Respiration Rate 27 Blood Gas Modality MASK - BIPAP FiO2 60.0 Blood Gas IPAP/EPAP Ratio 18/5 Blood Gas Notified Whom Blood Gas Notified Time 01/19/2017 3:52:51 AM White Blood Count 11.8 #H Red Blood Count 4.22 Hemoglobin 11.9 L Hematocrit 38.4 Mean Corpuscular Volume 91.0 Mean Corpuscular Hemoglobin 28.2 L Mean Corpuscular Hemoglobin Concent 31.0 L Red Cell Distribution Width 15.1 H Platelet Count 337 # Mean Platelet Volume 9.0 Neutrophils % 80.6 H Lymphocytes % 11.0 L Monocytes % 5.2 Eosinophils % 2.0 Basophils % 0.3 Nucleated Red Blood Cells % 0.0 Neutrophils # 9.5 H Lymphocytes # 1.3 Monocytes # 0.6 Eosinophils # 0.2 Basophils # 0.0 Nucleated Red Blood Cells # 0.0 Sodium Level 145 H Potassium Level 4.3 Chloride Level 101 Carbon Dioxide Level 32 H Anion Gap 16 Blood Urea Nitrogen 35 H Creatinine 1.46 H Glucose Level 114 # Calcium Level 8.9 Total Bilirubin 0.1 L Direct Bilirubin 0.00 Indirect Bilirubin 0.1 Aspartate Amino Transf (AST/SGOT) 38 Alanine Aminotransferase (ALT/SGPT) 45 Alkaline Phosphatase 110 Total Protein 7.5 # Albumin 4.3 Globulin 3.20 Albumin/Globulin Ratio 1.34 Medications Medications Current Medications Ondansetron HCl (Zofran Inj) 4 mg Q6H PRN IV NAUSEA AND/OR VOMITING; Start at 02:00 Acetaminophen (Tylenol Supp) 650 mg Q4H PRN [place] PAIN LEVEL 1-3 OR FEVER; Start 01/19/17 at 02:00 Morphine Sulfate (morphine) 2 mg Q4H PRN IV PAIN LEVEL 7-10; Start 01/19/17 at 02:00 Lorazepam (Ativan) 0.5 mg Q4H PRN IV ANXIETY; Start 01/19/17 at 02:00 Famotidine 20 mg 20 mg DAILY IV ; Start 01/19/17 at 09:00 Cefepime HCl 50 ml @ 100 mls/hr Q12 IVPB ; Start 01/19/17 at 09:00 Vancomycin HCl/ Sodium Chloride (Vancocin/NS) 250 ml @ 83.333 mls/ hr Q24H IVPB ; Start 01/19/17 at 11:00 Diagnostic Test (Pha) (Accu-Chek) 1 ea 02 XX ; Start 01/20/17 at 02:00 Insulin Glargine (Lantus) 10 unit QHS SC ; Start 01/19/17 at 21:00 Miscellaneous Information 1 ea NOTE XX ; Start 01/19/17 at 06:30 Glucose (Glutose) 15 gm Q15M PRN PO DECREASED GLUCOSE; Start 01/19/17 at 06:30 Glucose (Glutose) 22.5 gm Q15M PRN PO DECREASED GLUCOSE; Start 01/19/17 at 06: 30 Dextrose (D50w Syringe) 25 ml Q15M PRN IV DECREASED GLUCOSE; Start 01/19/17 at 06:30 Dextrose (D50w Syringe) 50 ml Q15M PRN IV DECREASED GLUCOSE; Start 01/19/17 at 06:30 Glucagon (Glucagen) 1 mg Q15M PRN IM DECREASED GLUCOSE; Start 01/19/17 at 06: 30 Glucose (Glutose) 15 gm Q15M PRN BUCCAL DECREASED GLUCOSE; Start 01/19/17 at 06:30 Aspirin (Aspirin) 81 mg DAILY PO ; Start 01/19/17 at 09:00 Atorvastatin Calcium (Lipitor) 40 mg HS PO ; Start 01/19/17 at 21:00 Clonazepam (Klonopin) 0.25 mg DAILY PRN PO ANXIETY; Start 01/19/17 at 06:30 Isosorbide Mononitrate (Imdur) 60 mg DAILY PO ; Start 01/19/17 at 09:00 Metoprolol Succinate (Toprol Xl) 50 mg DAILY PO ; Start 01/19/17 at 09:00 Paroxetine HCl (Paxil) 10 mg DAILY PO ; Start 01/19/17 at 09:00 Trazodone HCl (Desyrel) 50 mg QHS PO ; Start 01/19/17 at 21:00 Furosemide (Lasix) 20 mg DAILY@06 IV Last administered on 01/19/17t 06:51; Admin Dose 20 MG; Start 01/19/17 at 06:30 MIGUEL RIVERA Jan 19, 2017 09:24
[2017-01-19] MEDS: METOPROLOL (XL) 50 MG TAB PO SCH (09:52)
[2017-01-19] MEDS: PAROXETINE 10 MG TAB PO SCH (09:52)
[2017-01-19] MEDS: ASPIRIN 81 MG TAB PO SCH (09:52)
[2017-01-19] MEDS: ISOSORBIDE MONONITRATE(SR)60 MG TAB PO SCH (09:53)
[2017-01-19] MEDS: CEFEPIME 1GM/50 ML (PMX) 50 ML IVPB SCH ×2 (09:53→21:21)
[2017-01-19] MEDS: VANCOMYCIN 1.5 GM in SOD CHLORIDE 0.9% 250 ML IVPB SCH (11:36)
--- NOTE | 2017-01-19 12:18 | CONS ---
DATE OF ADMISSION: 01/19/2017 DATE OF CONSULTATION: 01/19/2017 REASON FOR CONSULTATION: Congestive heart failure exacerbation. REQUESTING PHYSICIAN: Macile Garza MD HISTORY OF PRESENT ILLNESS: Ms. Lee is a 76-year-old female with a history of chronic kidney dis ease, diabetes mellitus with poorly controlled blood sugars, diastolic congestive heart failure, hyp ertension, obesity, obstructive sleep apnea who had recently been admitted for congestive heart fail ure exacerbation and was discharged and now returns with recurrent shortness of breath and stating t hat she had passed out. Upon arrival in the emergency department, temperature 97.6, blood pressure elevated at 166/75, pulse 113, respiratory 45, saturating 93%. The patient's labs notable for white count 21.1, hemoglobin 13.6, platelet count of 434, a sodium of 145, potassium 4.2, creatinine 1.67 , BUN of 32, AST 49, ALT 43. BNP 575. INR 0.86. UA negative. The patient's chest x-ray revealed cardiomegaly, pulmonary vascular congestion, bilateral interstitial infiltrates. The patient's elec trocardiogram revealed normal sinus rhythm, rate of 72, right axis deviation, nonspecific ST-T abnor malities. The patient was subsequently treated with Lasix, aspirin, vanc, cefepime, required BiPAP, admitted to the ICU where she remains at this time. The patient has been monitored on telemetry si mte admit revealing sinus rhythm, no significant arrhythmias. PAST MEDICAL HISTORY: As above in HPI with patient's echo from 01/08/2017 revealing a preserved EF of 60% with left ventricular diastolic dysfunction, mild tricuspid and mitral regurgitation. MEDICATIONS CURRENTLY IN HOSPITAL: 1. Lantus. 2. Lipitor 40 mg at bedtime. 3. Trazodone. 4. Vancomycin. 5. Pepcid. 6. Cefepime. 7. Aspirin. 8. Imdur 60 mg daily. 9. Toprol-XL 50 mg daily. 10. Paxil 10 mg daily. 11. Insulin sliding scale. 12. Lasix 20 mg IV daily. 13. Klonopin. 14. Zofran. 15. DuoNeb. 16. Tylenol. 17. Morphine. 18. Ativan. ALLERGIES: NO KNOWN DRUG ALLERGIES. SOCIAL HISTORY: No tobacco, ETOH or illicit drug use. FAMILY HISTORY: No history of sudden cardiac or early CAD. REVIEW OF SYSTEMS: As above in HPI. CONSTITUTIONAL: No fevers, chills. PULMONARY: Shortness of breath. CARDIOVASCULAR: Congestive heart failure. GASTROINTESTINAL: No vomiting. GENITOURINARY: Renal failure. PSYCHIATRIC: No documented psych history. NEUROLOGIC: No documented history of CVA. ENDOCRINE: Diabetes mellitus. PHYSICAL EXAMINATION: VITAL SIGNS: Temperature of 100.5, blood pressure 130/57, pulse 77, respiration 21, saturating 100% . LABORATORY DATA: The patient's labs were notable for today, sodium 145, potassium 4.3, creatinine 1 .46, BUN 35. White blood cell count 11.8, hemoglobin , platelet count 337. IMAGING STUDIES: As above in HPI. No further imaging studies for my review at this time. ELECTROCARDIOGRAM: As above in HPI. No further electrocardiograms for my review at this time. IMPRESSION: 1. Congestive heart failure exacerbation, diastolic, acute on chronic. 2. Abnormal electrocardiogram, assess for acute coronary syndrome. 3. Hypertension. 4. Dyslipidemia. 5. Diabetes mellitus. 6. Renal failure. 7. Fevers. 8. Obstructive sleep apnea. 9. Obesity. RECOMMENDATIONS: 1. At this time, would maintain the patient on telemetry monitoring, but likely can be transferred to telemetry from ICU. Would complete the patient's rule out for myocardial infarction as the patie nt's coughing symptoms are not the result of and not resulted in an acute coronary syndrome such as acute myocardial infarction. 2. We will continue the patient's current aspirin for prophylaxis against cardiovascular events. 3. Continue the patient's current statin therapy as well and adjust it according to a fasting lipid panel to be checked. 4. Continue the patient's Imdur for antianginal medication and Toprol-XL for blood pressure and hea rt rate control. 5. Would give the patient more aggressive Lasix diuresis and follow strict I's and O's and creatini ne closely. 6. Continue the patient's BiPAP therapy as necessary. 7. Continue the patient's bronchodilators therapy as necessary. 8. Follow up all culture data. Thank you for allowing me to take part in the care of this patient. I will continue to follow along very closely with you. Further recommendations will be made as the patient progresses through her inpatient hospital clinical course. Dictated By: TERRIE GAINES/CLAUDIA Conf#: [id number] DID#: [id number] CC: MACIEL GARZA MD;*End*
--- NOTE | 2017-01-19 13:41 | CONS ---
Date/Time of Note Date/Time of Note DATE: 01/19/17 TIME: 13:36 Assessment/Plan Assessment/Plan Problems: (1) DM w/o complication type II, uncontrolled Status: Chronic Comment: Will resume exact insulin doses patient was on prior to discharge earlier this week. Will follow with you. Will titrate insulin doses if necessary. Consultation Date/Type/Reason Admit Date/Time Jan 19, 2017 at 01:40 Date of Consultation: Jan 19, 2017 Type of Consultation: Endocrinology Reason for Consultation Type 2 diabetes mellitus management Referring Provider: MADHU CAZARES Hx of Present Illness 76 y/o HF w/ h/o T2DM w/ multiple complications, CKD stage 2-3, chronic diastolic CHF, CAD, HTN, glaucoma, vision loss, depression, anxiety, hyperlipidemia, and morbid obesity. As an outpt. she is maintained on very high doses of insulin. In [facility] until yesterday afternoon when she had acute onset shortness of breath. Was so severe that she thought she was going to . Fell out of bed. Came to [facility] emergency room and was evaluated as being in distress. Treated with BiPAP and Lasix. Admitted to ICU. Currently, glucose is in good control. However given her history of profound insulin requirement, endocrine was consulted Constitutional: requiring O2 Eyes: no complaints ENT: no complaints Respiratory: cough, shortness of breath Cardiovascular: orthopenea, No edema Gastrointestinal: no complaints Genitourinary: no complaints Musculoskeletal: no complaints Neurologic: no complaints Past Medical History Medical History: congestive heart failure, coronary artery disease, diabetes, high cholesterol, hypertension, renal disease, other (glaucoma w/ B vision loss , anxiety, depression) Past Surgical History Past Surgical Hx: other (Ovarian cystectomy, BECKY, laser eye surgery) Family History Significant Family History: cancer (Uterine sister), diabetes, other (Alcohol abuse in father) Social History b. [place] [facility] [place] 43 [place] from , 1 daughter Alcohol Use: none Smoking Status: Never smoker Drug Use: none Exam/Review of Systems Vital Signs Vitals Vital Signs Date Time Temp Pulse Resp B/P Pulse Ox O2 Delivery O2 Flow Rate FiO2 01/19/17 12:23 100 12.0 40 01/19/17 12:00 99.0 78 21 115/38 Venturi Mask Intake and Output 1001/18/17 01/19/17 15:00 23:00 07:00 Intake Total 300 ml Output Total 750 ml Balance -450 ml Exam Constitutional: alert, obese, oriented Psych: anxiety Eyes: EOMI, PERRL, nl conjunctiva, nl lids, nl sclera ENMT: mucosa pink and moist, nl external ears & nose Neck: non-tender, supple, No bruits, No masses, No thyromegaly Respiratory: clear to auscultation, labored breathing, normal air movement Cardiovascular: nl pulses, regular rate and rhythm, No edema, No murmurs/extra sounds, No rub Gastrointestinal: bowel sounds, nl liver, spleen, non-tender, soft, No mass, No rebound or guarding Musculoskeletal: nl extremities to inspection Extremities: normal pulses, No clubbing, No cyanosis, No edema Neurological: MONEY ORDER CLERK II-XII intact, nl mental status, nl speech, nl strength Additional Comments Bedside Glucose - 72 Hours Test 01/19/17 09:54 01/19/17 11:41 Bedside Glucose 98mg/dL (70-220) 116mg/dL (70-220) Results Result Diagram: 01/19/17 0325 01/19/17 0325 Results 24 hrs Laboratory Tests Test 01/18/17 21:03 01/18/17 22:31 01/18/17 23:25 01/18/17 23:54 White Blood Count 21.1 #H Red Blood Count 4.92 Hemoglobin 13.6 Hematocrit 44.3 Mean Corpuscular Volume 90.0 Mean Corpuscular Hemoglobin 27.6 L Mean Corpuscular Hemoglobin Concent 30.7 L Red Cell Distribution Width 15.6 H Platelet Count 434 #H Mean Platelet Volume 9.3 Neutrophils % 55.9 Lymphocytes % 31.6 Monocytes % 8.6 Eosinophils % 1.9 Basophils % 0.4 Nucleated Red Blood Cells % 0.1 H Neutrophils # 11.8 H Lymphocytes # 6.7 H Monocytes # 1.8 H Eosinophils # 0.4 Basophils # 0.1 Nucleated Red Blood Cells # 0.0 Sodium Level 145 H Potassium Level 4.2 Chloride Level 102 Carbon Dioxide Level 25 Anion Gap 22 H Blood Urea Nitrogen 32 H Creatinine 1.67 H Glucose Level 224 H Calcium Level 9.7 Total Bilirubin 0.1 L Direct Bilirubin 0.00 Indirect Bilirubin 0.1 Aspartate Amino Transf (AST/SGOT) 49 H Alanine Aminotransferase (ALT/SGPT) 43 Alkaline Phosphatase 149 H Troponin I 0.017 Total Protein 9.0 H Albumin 4.5 Globulin 4.50 H Albumin/Globulin Ratio 1.00 Lipase 106 Blood Gas Specimen Source Blood arterial Arterial Blood Date Drawn 01/18/2017 10:35:38 PM Arterial Blood pH (Temp corrected) 7.353 Arterial Blood pCO2 (Temp correct) 48.7 H Arterial Blood pO2 (Temp corrected) 106.1 H Arterial Blood HCO3 26.5 H Arterial Blood Base Excess 0.3 Arterial Blood Oxygen Saturation 97.7 [place] Test ACCEPTAB Arterial Blood Gas Puncture Site Right Radial Arterial Blood Carboxyhemoglobin 0.3 Arterial Blood Methemoglobin 0.5 Blood Gas A-a O2 Differential 268.1 H Oxyhemoglobin Percent 96.9 Total Hemoglobin 13.7 Blood Gas Temperature 37.0 Blood Gas Respiration Rate 18.0 Blood Gas Actual Respiration Rate 27 Blood Gas Modality MASK - BIPAP FiO2 60.0 Blood Gas IPAP/EPAP Ratio 18/5 Blood Gas Notified Whom MG Blood Gas Notified Time 01/18/2017 10:45:12 PM Prothrombin Time 11.7 L Prothrombin Time Ratio 0.9 INR International Normalized Ratio 0.86 Activated Partial Thromboplast Time 26.0 Lactic Acid Level 2.2 *H B-Type Natriuretic Peptide 575 H Urine Color STRAW Urine Clarity CLEAR Urine pH 5.0 Urine Specific [place] 1.006 Urine Ketones NEGATIVE Urine Nitrite NEGATIVE Urine Bilirubin NEGATIVE Urine Urobilinogen NEGATIVE Urine Leukocyte Esterase NEGATIVE Urine Hemoglobin NEGATIVE Urine Glucose 1+ H Urine Total Protein NEGATIVE Test 01/19/17 01:45 01/19/17 02:30 01/19/17 03:25 01/19/17 09:54 Lactic Acid Level 1.6 2.1 H Blood Gas Specimen Source Blood arterial Arterial Blood Date Drawn 01/19/2017 3:40:16 AM Arterial Blood pH (Temp corrected) 7.386 Arterial Blood pCO2 (Temp correct) 39.2 Arterial Blood pO2 (Temp corrected) 157.7 H Arterial Blood HCO3 23.0 Arterial Blood Base Excess -1.8 Arterial Blood Oxygen Saturation 99.0 [place] Test ACCEPTAB Arterial Blood Gas Puncture Site Right Radial Arterial Blood Carboxyhemoglobin 0.3 Arterial Blood Methemoglobin 0.3 Blood Gas A-a O2 Differential 227.0 H Oxyhemoglobin Percent 98.4 Total Hemoglobin 11.7 L Blood Gas Temperature 37.0 Blood Gas Respiration Rate 18.0 Blood Gas Actual Respiration Rate 27 Blood Gas Modality MASK - BIPAP FiO2 60.0 Blood Gas IPAP/EPAP Ratio 18/5 Blood Gas Notified Whom Blood Gas Notified Time 01/19/2017 3:52:51 AM White Blood Count 11.8 #H Red Blood Count 4.22 Hemoglobin 11.9 L Hematocrit 38.4 Mean Corpuscular Volume 91.0 Mean Corpuscular Hemoglobin 28.2 L Mean Corpuscular Hemoglobin Concent 31.0 L Red Cell Distribution Width 15.1 H Platelet Count 337 # Mean Platelet Volume 9.0 Neutrophils % 80.6 H Lymphocytes % 11.0 L Monocytes % 5.2 Eosinophils % 2.0 Basophils % 0.3 Nucleated Red Blood Cells % 0.0 Neutrophils # 9.5 H Lymphocytes # 1.3 Monocytes # 0.6 Eosinophils # 0.2 Basophils # 0.0 Nucleated Red Blood Cells # 0.0 Sodium Level 145 H Potassium Level 4.3 Chloride Level 101 Carbon Dioxide Level 32 H Anion Gap 16 Blood Urea Nitrogen 35 H Creatinine 1.46 H Glucose Level 114 # Calcium Level 8.9 Total Bilirubin 0.1 L Direct Bilirubin 0.00 Indirect Bilirubin 0.1 Aspartate Amino Transf (AST/SGOT) 38 Alanine Aminotransferase (ALT/SGPT) 45 Alkaline Phosphatase 110 Total Protein 7.5 # Albumin 4.3 Globulin 3.20 Albumin/Globulin Ratio 1.34 Bedside Glucose 98 Test 01/19/17 11:41 01/19/17 11:42 Bedside Glucose 116 Lactic Acid Level 1.8 Creatine Kinase 91 Creatine Kinase Index 2.0 Creatinine Kinase MB (Mass) 1.86 Troponin I 0.264 *H Medications Medications Current Medications Ondansetron HCl (Zofran Inj) 4 mg Q6H PRN IV NAUSEA AND/OR VOMITING; Start at 02:00 Acetaminophen (Tylenol Supp) 650 mg Q4H PRN IA PAIN LEVEL 1-3 OR FEVER; Start 01/19/17 at 02:00 Morphine Sulfate (morphine) 2 mg Q4H PRN IV PAIN LEVEL 7-10; Start 01/19/17 at 02:00 Lorazepam 0.5 mg 0.5 mg Q4H PRN IV ANXIETY; Start 01/19/17 at 02:00 Cefepime HCl 50 ml @ 100 mls/hr Q12 IVPB Last administered on 01/19/17 09:53 ; Admin Dose 100 MLS/HR; Start 01/19/17 at 09:00 Vancomycin HCl/ Sodium Chloride (Vancocin/NS) 250 ml @ 83.333 mls/ hr Q24H IVPB Last administered on 01/19/17 11:36; Admin Dose 83.333 MLS/HR; Start at 11:00 Miscellaneous Information 1 ea NOTE XX ; Start 01/19/17 at 06:30 Glucose (Glutose) 15 gm Q15M PRN PO DECREASED GLUCOSE; Start 01/19/17 at 06:30 Glucose (Glutose) 22.5 gm Q15M PRN PO DECREASED GLUCOSE; Start 01/19/17 at 06: 30 Dextrose (D50w Syringe) 25 ml Q15M PRN IV DECREASED GLUCOSE; Start 01/19/17 at 06:30 Dextrose (D50w Syringe) 50 ml Q15M PRN IV DECREASED GLUCOSE; Start 01/19/17 at 06:30 Glucagon (Glucagen) 1 mg Q15M PRN IM DECREASED GLUCOSE; Start 01/19/17 at 06: 30 Glucose (Glutose) 15 gm Q15M PRN BUCCAL DECREASED GLUCOSE; Start 01/19/17 at 06:30 Aspirin (Aspirin) 81 mg DAILY PO Last administered on 01/19/17 09:52; Admin Dose 81 MG; Start 01/19/17 at 09:00 Atorvastatin Calcium (Lipitor) 40 mg HS PO ; Start 01/19/17 at 21:00 Clonazepam (Klonopin) 0.25 mg DAILY PRN PO ANXIETY; Start 01/19/17 at 06:30 Isosorbide Mononitrate (Imdur) 60 mg DAILY PO Last administered on 01/19/17 09:53; Admin Dose 60 MG; Start 01/19/17 at 09:00 Metoprolol Succinate (Toprol Xl) 50 mg DAILY PO Last administered on 09:52; Admin Dose 50 MG; Start 01/19/17 at 09:00 Paroxetine HCl (Paxil) 10 mg DAILY PO Last administered on 01/19/17 09:52; Admin Dose 10 MG; Start 01/19/17 at 09:00 Trazodone HCl (Desyrel) 50 mg QHS PO ; Start 01/19/17 at 21:00 Furosemide (Lasix) 20 mg DAILY@06 IV Last administered on 01/19/17t 06:51; Admin Dose 20 MG; Start 01/19/17 at 06:30 Diagnostic Test (Pha) (Accu-Chek) 1 ea 02 XX ; Start 01/20/17 at 02:00 Insulin Glargine (Lantus) 50 unit DAILY@08 SC ; Start 01/20/17 at 08:00; Status UNV Insulin Human NPH (Humulin N) 60 unit DAILY@22 SC ; Start 01/19/17 at 22:00; Status UNV Linagliptin (Tradjenta) 5 mg DAILY PO ; Start 01/20/17 at 09:00; Status UNV Empaglifozin (Jardiance) 10 mg DAILY@08 PO ; Start 01/20/17 at 08:00 TONY KELLY MD Jan 19, 2017 13:41
[2017-01-19] MEDS: FUROSEMIDE 40 MG INJ IV SCH (18:42)
[2017-01-19] MEDS ORDERED: INSULIN GLARGINE [LANtus] 3 ML PEN SC SCH (21:00)
[2017-01-19] MEDS: ATORVASTATIN 40 MG TAB PO SCH (21:23)
[2017-01-19] MEDS: traZODone 50 MG TAB PO SCH (21:23)
[2017-01-19] MEDS: NPH, HUMAN INSULIN ISOPHANE 3ML VIAL SC SCH (21:27)
[2017-01-20] VITALS (28 sets, daily range): BP systolic 95–136; BP diastolic 41–82; PULSE 61–75; RESP 16–22
[2017-01-20] MEDS ORDERED: ACCU-CHEK XX SCH ×2 (02:00)
[2017-01-20] MEDS: ACCU-CHEK XX SCH (02:00)
[2017-01-20] MEDS: FUROSEMIDE 20 MG INJ IV SCH (05:39)
[2017-01-20] MEDS: FUROSEMIDE 40 MG INJ IV SCH ×2 (05:46→18:10)
--- NOTE | 2017-01-20 07:51 | CONS ---
Date/Time of Note Date/Time of Note DATE: 01/20/17 TIME: 07:49 Assessment/Plan Assessment/Plan Additional Assessment/Plan Assessment and recommendations; 1. Patient admitted with CHF exacerbation with interval improvement, currently on BiPAP 18/5, 30% FiO2. 2. Underlying morbid obesity. 3. History of diabetes, hypertension, anemia, and coronary artery disease. 4. Possibly underlying sleep apnea. Continue current supportive care. Patient responding well to current treatment regimen. Consultation Date/Type/Reason Admit Date/Time Jan 19, 2017 at 01:40 Type of Consultation: Pulmonary/critical care Referring Provider: MADHU CAZARES 24 HR Interval Summary Free Text/Dictation Patient 's condition is stable. Denies any shortness of breath, chest pain, wheezing or cough. Still requiring BiPAP. General exam; elderly woman, morbidly obese, awake and alert. Currently in no distress. Exam/Review of Systems Vital Signs Vitals Vital Signs Date Time Temp Pulse Resp B/P Pulse Ox O2 Delivery O2 Flow Rate FiO2 01/20/17 06:00 74 21 135/67 92 BIPAP 01/20/17 05:10 30 01/20/17 04:00 98.7 01/20/17 01:00 Intake and Output 01/19/17 01/19/17 01/20/17 15:00 23:00 07:00 Intake Total 600.00 ml 450 ml 100 ml Output Total 640 ml 835 ml 450 ml Balance -40.00 ml -385 ml -350 ml Exam HEENT exam; supple neck, JVD difficult to see because of short neck. Patient is edentulous. No neck masses. No thyromegaly. No lymphadenopathy. Chest exam; diminished but clear breath sounds. S1-S2 audible, no murmurs. Regular rhythm. Abdomen exam; soft, grossly protuberant. No organomegaly. Bowel sounds audible. Extremity exam; no peripheral edema. PHARMACY CLERK exam; no focal deficit. Results Result Diagram: 01/19/17 0325 01/20/17 0611 Results 24 hrs Laboratory Tests Test 01/19/17 09:54 01/19/17 11:41 01/19/17 11:42 01/19/17 17:26 Bedside Glucose 98 116 334 H Lactic Acid Level 1.8 Creatine Kinase 91 Creatine Kinase Index 2.0 Creatinine Kinase MB (Mass) 1.86 Troponin I 0.264 *H Test 01/19/17 18:45 01/19/17 21:25 01/20/17 00:24 01/20/17 03:07 Creatine Kinase 80 62 Creatine Kinase Index 1.8 1.8 Creatinine Kinase MB (Mass) 1.44 1.14 Troponin I 0.155 *H 0.149 *H Bedside Glucose 243 H 135 Test 01/20/17 06:11 Blood Urea Nitrogen 29 H Creatinine 1.40 H Triglycerides Level 250 H Cholesterol Level 210 H LDL Cholesterol, Calculated 125 HDL Cholesterol 35 Cholesterol/HDL Ratio 6.0 Medications Medications Current Medications Ondansetron HCl (Zofran Inj) 4 mg Q6H PRN IV NAUSEA AND/OR VOMITING; Start at 02:00 Acetaminophen (Tylenol Supp) 650 mg Q4H PRN IN PAIN LEVEL 1-3 OR FEVER; Start 01/19/17 at 02:00 Morphine Sulfate (morphine) 2 mg Q4H PRN IV PAIN LEVEL 7-10; Start 01/19/17 at 02:00 Lorazepam 0.5 mg 0.5 mg Q4H PRN IV ANXIETY; Start 01/19/17 at 02:00 Cefepime HCl 50 ml @ 100 mls/hr Q12 IVPB Last administered on 01/19/17 21:21 ; Admin Dose 100 MLS/HR; Start 01/19/17 at 09:00 Vancomycin HCl/ Sodium Chloride (Vancocin/NS) 250 ml @ 83.333 mls/ hr Q24H IVPB Last administered on 01/19/17 11:36; Admin Dose 83.333 MLS/HR; Start at 11:00 Miscellaneous Information 1 ea NOTE XX ; Start 01/19/17 at 06:30 Glucose (Glutose) 15 gm Q15M PRN PO DECREASED GLUCOSE; Start 01/19/17 at 06:30 Glucose (Glutose) 22.5 gm Q15M PRN PO DECREASED GLUCOSE; Start 01/19/17 at 06: 30 Dextrose (D50w Syringe) 25 ml Q15M PRN IV DECREASED GLUCOSE; Start 01/19/17 at 06:30 Dextrose (D50w Syringe) 50 ml Q15M PRN IV DECREASED GLUCOSE; Start 01/19/17 at 06:30 Glucagon (Glucagen) 1 mg Q15M PRN IM DECREASED GLUCOSE; Start 01/19/17 at 06: 30 Glucose (Glutose) 15 gm Q15M PRN BUCCAL DECREASED GLUCOSE; Start 01/19/17 at 06:30 Aspirin (Aspirin) 81 mg DAILY PO Last administered on 01/19/17 09:52; Admin Dose 81 MG; Start 01/19/17 at 09:00 Atorvastatin Calcium (Lipitor) 40 mg HS PO Last administered on 01/19/17 21: 23; Admin Dose 40 MG; Start 01/19/17 at 21:00 Clonazepam (Klonopin) 0.25 mg DAILY PRN PO ANXIETY; Start 01/19/17 at 06:30 Isosorbide Mononitrate (Imdur) 60 mg DAILY PO Last administered on 01/19/17 09:53; Admin Dose 60 MG; Start 01/19/17 at 09:00 Metoprolol Succinate (Toprol Xl) 50 mg DAILY PO Last administered on 09:52; Admin Dose 50 MG; Start 01/19/17 at 09:00 Paroxetine HCl (Paxil) 10 mg DAILY PO Last administered on 01/19/17 09:52; Admin Dose 10 MG; Start 01/19/17 at 09:00 Trazodone HCl (Desyrel) 50 mg QHS PO Last administered on 01/19/17 21:23; Admin Dose 50 MG; Start 01/19/17 at 21:00 Furosemide (Lasix) 20 mg DAILY@06 IV Last administered on 01/19/17 06:51; Admin Dose 20 MG; Start 01/19/17 at 06:30 Diagnostic Test (Pha) (Accu-Chek) 1 ea 02 XX Last administered on 01/20/17 02 :00; Admin Dose 1 EA; Start 01/20/17 at 02:00 Insulin Glargine (Lantus) 50 unit DAILY@08 SC ; Start 01/20/17 at 08:00 Insulin Human NPH (Humulin N) 60 unit DAILY@22 SC Last administered on 21:27; Admin Dose 60 UNIT; Start 01/19/17 at 22:00 Linagliptin (Tradjenta) 5 mg DAILY PO ; Start 01/20/17 at 09:00 Empaglifozin (Jardiance) 10 mg DAILY@08 PO ; Start 01/20/17 at 08:00 MIGUEL RIVERA Jan 20, 2017 07:51
[2017-01-20] MEDS: INSULIN ASPART [NOVOLOG] 3 ML PEN SC SCH ×7 (08:22→21:00)
[2017-01-20] MEDS: INSULIN GLARGINE [LANtus] 3 ML PEN SC SCH (08:30)
[2017-01-20] MEDS: CEFEPIME 1GM/50 ML (PMX) 50 ML IVPB SCH ×2 (08:31→21:19)
[2017-01-20] MEDS: LINAGLIPTIN 5 MG TABLET PO SCH (08:31)
[2017-01-20] MEDS: EMPAGLIFLOZIN 10 MG TABLET PO SCH (08:31)
[2017-01-20] MEDS: ASPIRIN 81 MG TAB PO SCH (08:31)
[2017-01-20] MEDS: PAROXETINE 10 MG TAB PO SCH (08:32)
[2017-01-20] MEDS: ISOSORBIDE MONONITRATE(SR)60 MG TAB PO SCH (08:37)
[2017-01-20] MEDS: METOPROLOL (XL) 50 MG TAB PO SCH (08:37)
--- NOTE | 2017-01-20 08:39 | CONS ---
Date/Time of Note Date/Time of Note DATE: 01/20/17 TIME: 08:36 Assessment/Plan Assessment/Plan Problems: (1) MRSA nasal colonization Status: Acute Comment: As per primary team for evaluation and treatment (2) DM w/o complication type II, uncontrolled Status: Chronic Comment: Her blood sugar control has come into line nicely with resuming her prior medications. She is on rather high dose. To be honest she actually has a bit of a cushingoid appearance to me. If we try and do with evaluation for Kassidy's while she is in the hospital acutely ill the screening test will be abnormal due to the stress that brought into the hospital. This should be checked as an outpatient with an overnight dexamethasone suppression test (3) Morbid obesity with BMI of 45.0-49.9, adult Status: Chronic Comment: Noted. Calorie restriction (4) Diastolic dysfunction with acute on chronic heart failure Status: Chronic Comment: As per primary team Consultation Date/Type/Reason Admit Date/Time Jan 19, 2017 at 01:40 Initial Consult Date 01/19/17 Type of Consultation: Endocrinology Reason for Consultation Diabetes mellitus type 2 on combination insulin and oral agent therapy; CHF Referring Provider: MADHU CAZARES 24 HR Interval Summary Free Text/Dictation Patient reports she is still short of breath but feels better. She is not having hypoglycemia and she is not having polys. Constitutional: no complaints Detailed Summary ENT: no complaints Respiratory: shortness of breath Cardiovascular: no complaints Genitourinary: no complaints Exam/Review of Systems Vital Signs Vitals Vital Signs Date Time Temp Pulse Resp B/P Pulse Ox O2 Delivery O2 Flow Rate FiO2 01/20/17 06:00 74 21 135/67 92 BIPAP 01/20/17 05:10 30 01/20/17 04:00 98.7 01/20/17 01:00 Intake and Output 01/19/17 01/19/17 01/20/17 15:00 23:00 07:00 Intake Total 600.00 ml 450 ml 100 ml Output Total 640 ml 835 ml 450 ml Balance -40.00 ml -385 ml -350 ml Exam Constitutional: alert, oriented Neck: non-tender, supple Respiratory: crackles/rales Cardiovascular: nl pulses, regular rate and rhythm Gastrointestinal: nl liver, spleen, non-tender, soft (Protuberant and obese) Results Result Diagram: 01/19/17 0325 01/20/17 0611 Results 24 hrs Laboratory Tests Test 01/19/17 09:54 01/19/17 11:41 01/19/17 11:42 01/19/17 17:26 Bedside Glucose 98 116 334 H Lactic Acid Level 1.8 Creatine Kinase 91 Creatine Kinase Index 2.0 Creatinine Kinase MB (Mass) 1.86 Troponin I 0.264 *H Test 01/19/17 18:45 01/19/17 21:25 01/20/17 00:24 01/20/17 03:07 Creatine Kinase 80 62 Creatine Kinase Index 1.8 1.8 Creatinine Kinase MB (Mass) 1.44 1.14 Troponin I 0.155 *H 0.149 *H Bedside Glucose 243 H 135 Test 01/20/17 06:11 Blood Urea Nitrogen 29 H Creatinine 1.40 H Triglycerides Level 250 H Cholesterol Level 210 H LDL Cholesterol, Calculated 125 HDL Cholesterol 35 Cholesterol/HDL Ratio 6.0 Medications Medications Current Medications Ondansetron HCl (Zofran Inj) 4 mg Q6H PRN IV NAUSEA AND/OR VOMITING; Start at 02:00 Acetaminophen (Tylenol Supp) 650 mg Q4H PRN IN PAIN LEVEL 1-3 OR FEVER; Start 01/19/17 at 02:00 Morphine Sulfate (morphine) 2 mg Q4H PRN IV PAIN LEVEL 7-10; Start 01/19/17 at 02:00 Lorazepam 0.5 mg 0.5 mg Q4H PRN IV ANXIETY; Start 01/19/17 at 02:00 Cefepime HCl 50 ml @ 100 mls/hr Q12 IVPB Last administered on 01/19/17 21:21 ; Admin Dose 100 MLS/HR; Start 01/19/17 at 09:00 Vancomycin HCl/ Sodium Chloride (Vancocin/NS) 250 ml @ 83.333 mls/ hr Q24H IVPB Last administered on 01/19/17 11:36; Admin Dose 83.333 MLS/HR; Start at 11:00 Miscellaneous Information 1 ea NOTE XX ; Start 01/19/17 at 06:30 Glucose (Glutose) 15 gm Q15M PRN PO DECREASED GLUCOSE; Start 01/19/17 at 06:30 Glucose (Glutose) 22.5 gm Q15M PRN PO DECREASED GLUCOSE; Start 01/19/17 at 06: 30 Dextrose (D50w Syringe) 25 ml Q15M PRN IV DECREASED GLUCOSE; Start 01/19/17 at 06:30 Dextrose (D50w Syringe) 50 ml Q15M PRN IV DECREASED GLUCOSE; Start 01/19/17 at 06:30 Glucagon (Glucagen) 1 mg Q15M PRN IM DECREASED GLUCOSE; Start 01/19/17 at 06: 30 Glucose (Glutose) 15 gm Q15M PRN BUCCAL DECREASED GLUCOSE; Start 01/19/17 at 06:30 Aspirin (Aspirin) 81 mg DAILY PO Last administered on 01/19/17 09:52; Admin Dose 81 MG; Start 01/19/17 at 09:00 Atorvastatin Calcium (Lipitor) 40 mg HS PO Last administered on 01/19/17 21: 23; Admin Dose 40 MG; Start 01/19/17 at 21:00 Clonazepam (Klonopin) 0.25 mg DAILY PRN PO ANXIETY; Start 01/19/17 at 06:30 Isosorbide Mononitrate (Imdur) 60 mg DAILY PO Last administered on 01/19/17 09:53; Admin Dose 60 MG; Start 01/19/17 at 09:00 Metoprolol Succinate (Toprol Xl) 50 mg DAILY PO Last administered on 09:52; Admin Dose 50 MG; Start 01/19/17 at 09:00 Paroxetine HCl (Paxil) 10 mg DAILY PO Last administered on 01/19/17 09:52; Admin Dose 10 MG; Start 01/19/17 at 09:00 Trazodone HCl (Desyrel) 50 mg QHS PO Last administered on 01/19/17 21:23; Admin Dose 50 MG; Start 01/19/17 at 21:00 Furosemide (Lasix) 20 mg DAILY@06 IV Last administered on 01/19/17 06:51; Admin Dose 20 MG; Start 01/19/17 at 06:30 Diagnostic Test (Pha) (Accu-Chek) 1 ea 02 XX Last administered on 01/20/17 02 :00; Admin Dose 1 EA; Start 01/20/17 at 02:00 Insulin Glargine (Lantus) 50 unit DAILY@08 SC ; Start 10/28/17 at 08:00 Insulin Human NPH (Humulin N) 60 unit DAILY@22 SC Last administered on t 21:27; Admin Dose 60 UNIT; Start 01/19/17 at 22:00 Linagliptin (Tradjenta) 5 mg DAILY PO ; Start 01/20/17 at 09:00 Empaglifozin (Jardiance) 10 mg DAILY@08 PO ; Start 01/20/17 at 08:00 IVA TENORIO MD Jan 20, 2017 08:39
--- NOTE | 2017-01-20 09:02 | PN ---
Date/Time of Note Date/Time of Note DATE: 01/20/17 TIME: 09:01 Assessment/Plan VTE Prophylaxis VTE Prophylaxis Intervention: other Lines/Catheters IV Catheter Type (from Nrs): Peripheral IV Urinary Cath still in place: Yes Reason Cath still needed: skin wounds contaminated by urine Assessment/Plan Chief Complaint/Hosp Course 1. Acute on chronic CHF exacerbation, diastolic -Continue diuresis with IV Lasix -Continue her home cardiac medications -Cardiology consult 2. Insulin-dependent diabetes -Continue insulin with adjustment as needed 3. Hypertension -Continue home BP meds, adjust as needed 4. CKD -Avoid nephrotoxins. Renally dose all medication -Nephrology consult as needed Problems: Subjective 24 Hr Interval Summary Free Text/Dictation Patient has no complaints, is breathing well Exam/Review of Systems Vital Signs Vitals Vital Signs Date Time Temp Pulse Resp B/P Pulse Ox O2 Delivery O2 Flow Rate FiO2 01/20/17 06:00 74 21 135/67 92 BIPAP 01/20/17 05:10 30 01/20/17 04:00 98.7 01/20/17 01:00 Intake and Output 01/19/17 01/19/17 01/20/17 15:00 23:00 07:00 Intake Total 600.00 ml 450 ml 100 ml Output Total 640 ml 835 ml 450 ml Balance -40.00 ml -385 ml -350 ml Exam Constitutional: obese, well developed Head: atraumatic, normocephalic Neck: supple Respiratory: clear to auscultation Cardiovascular: regular rate and rhythm Gastrointestinal: non-tender, soft Extremities: normal pulses Results Result Diagram: 01/19/17 0325 01/20/17 0611 Results 24 hrs Laboratory Tests Test 01/19/17 09:54 01/19/17 11:41 01/19/17 11:42 01/19/17 17:26 Bedside Glucose 98 116 334 H Lactic Acid Level 1.8 Creatine Kinase 91 Creatine Kinase Index 2.0 Creatinine Kinase MB (Mass) 1.86 Troponin I 0.264 *H Test 01/19/17 18:45 01/19/17 21:25 01/20/17 00:24 01/20/17 03:07 Creatine Kinase 80 62 Creatine Kinase Index 1.8 1.8 Creatinine Kinase MB (Mass) 1.44 1.14 Troponin I 0.155 *H 0.149 *H Bedside Glucose 243 H 135 Test 01/20/17 06:11 01/20/17 08:17 Blood Urea Nitrogen 29 H Creatinine 1.40 H Triglycerides Level 250 H Cholesterol Level 210 H LDL Cholesterol, Calculated 125 HDL Cholesterol 35 Cholesterol/HDL Ratio 6.0 Bedside Glucose 149 Medications Medications Current Medications Ondansetron HCl (Zofran Inj) 4 mg Q6H PRN IV NAUSEA AND/OR VOMITING; Start at 02:00 Acetaminophen (Tylenol Supp) 650 mg Q4H PRN [place] PAIN LEVEL 1-3 OR FEVER; Start 01/19/17 at 02:00 Morphine Sulfate (morphine) 2 mg Q4H PRN IV PAIN LEVEL 7-10; Start 01/19/17 at 02:00 Lorazepam 0.5 mg 0.5 mg Q4H PRN IV ANXIETY; Start 01/19/17 at 02:00 Cefepime HCl 50 ml @ 100 mls/hr Q12 IVPB Last administered on 01/20/17 08:31 ; Admin Dose 100 MLS/HR; Start 01/19/17 at 09:00 Vancomycin HCl/ Sodium Chloride (Vancocin/NS) 250 ml @ 83.333 mls/ hr Q24H IVPB Last administered on 01/19/17 11:36; Admin Dose 83.333 MLS/HR; Start at 11:00 Miscellaneous Information 1 ea NOTE XX ; Start 01/19/17 at 06:30 Glucose (Glutose) 15 gm Q15M PRN PO DECREASED GLUCOSE; Start 01/19/17 at 06:30 Glucose (Glutose) 22.5 gm Q15M PRN PO DECREASED GLUCOSE; Start 01/19/17 at 06: 30 Dextrose (D50w Syringe) 25 ml Q15M PRN IV DECREASED GLUCOSE; Start 01/19/17 at 06:30 Dextrose (D50w Syringe) 50 ml Q15M PRN IV DECREASED GLUCOSE; Start 01/19/17 at 06:30 Glucagon (Glucagen) 1 mg Q15M PRN IM DECREASED GLUCOSE; Start 01/19/17 at 06: 30 Glucose (Glutose) 15 gm Q15M PRN BUCCAL DECREASED GLUCOSE; Start 01/19/17 at 06:30 Aspirin (Aspirin) 81 mg DAILY PO Last administered on 01/20/17 08:31; Admin Dose 81 MG; Start 01/19/17 at 09:00 Atorvastatin Calcium (Lipitor) 40 mg HS PO Last administered on 01/19/17 21: 23; Admin Dose 40 MG; Start 01/19/17 at 21:00 Clonazepam (Klonopin) 0.25 mg DAILY PRN PO ANXIETY; Start 01/19/17 at 06:30 Isosorbide Mononitrate (Imdur) 60 mg DAILY PO Last administered on 01/20/17 08:37; Admin Dose 60 MG; Start 01/19/17 at 09:00 Metoprolol Succinate (Toprol Xl) 50 mg DAILY PO Last administered on 08:37; Admin Dose 50 MG; Start 01/19/17 at 09:00 Paroxetine HCl (Paxil) 10 mg DAILY PO Last administered on 01/20/17 08:32; Admin Dose 10 MG; Start 01/19/17 at 09:00 Trazodone HCl (Desyrel) 50 mg QHS PO Last administered on 01/19/17 21:23; Admin Dose 50 MG; Start 01/19/17 at 21:00 Furosemide (Lasix) 20 mg DAILY@06 IV Last administered on 01/19/17 06:51; Admin Dose 20 MG; Start 01/19/17 at 06:30 Diagnostic Test (Pha) (Accu-Chek) 1 ea 02 XX Last administered on 01/20/17 02 :00; Admin Dose 1 EA; Start 01/20/17 at 02:00 Insulin Glargine (Lantus) 50 unit DAILY@08 SC Last administered on 01/20/17 08:30; Admin Dose 50 UNIT; Start 01/20/17 at 08:00 Insulin Human NPH (Humulin N) 60 unit DAILY@22 SC Last administered on 21:27; Admin Dose 60 UNIT; Start 01/19/17 at 22:00 Linagliptin (Tradjenta) 5 mg DAILY PO Last administered on 01/20/17 08:31; Admin Dose 5 MG; Start 01/20/17 at 09:00 Empaglifozin (Jardiance) 10 mg DAILY@08 PO Last administered on 01/20/17 08: 31; Admin Dose 10 MG; Start 01/20/17 at 08:00 BRISA PURVIS Jan 20, 2017 09:02
[2017-01-20] MEDS: VANCOMYCIN 1.5 GM in SOD CHLORIDE 0.9% 250 ML IVPB SCH (10:48)
[2017-01-20] MEDS: MUPIROCIN 2% 22 GM OINT TOP SCH ×2 (11:00→21:19)
--- NOTE | 2017-01-20 12:17 | CONS ---
Date/Time of Note Date/Time of Note DATE: 01/20/17 TIME: 12:13 Assessment/Plan Assessment/Plan Additional Assessment/Plan 1. Acute exacerbation of diastolic heart failure 2. Abnormal electrocardiogram 3. Hypertension. 4. Dyslipidemia. 5. Diabetes mellitus. 6. Renal failure. 7. Obstructive sleep apnea on Bipap 9. Obesity. 10. Pneumonia hemodynamically stable Continue Antibiotics Continue Toprol Discontinue Imdur Continue Lipitor Continue Insulin Continue Bipap Continue Nebs as scheduled Transfer to Tele Consultation Date/Type/Reason Admit Date/Time Jan 19, 2017 at 01:40 Constitutional: no complaints Eyes: no complaints ENT: no complaints Respiratory: shortness of breath Cardiovascular: no complaints Gastrointestinal: no complaints Genitourinary: no complaints Musculoskeletal: no complaints Neurologic: no complaints Psychological: anxiety Past Medical History Medical History: congestive heart failure, coronary artery disease, diabetes, high cholesterol, hypertension, renal disease, other (glaucoma w/ B vision loss , anxiety, depression) Past Surgical History Past Surgical Hx: other (Ovarian cystectomy, BECKY, laser eye surgery) Social History Alcohol Use: none Smoking Status: Never smoker Drug Use: none Exam/Review of Systems Vital Signs Vitals Vital Signs Date Time Temp Pulse Resp B/P Pulse Ox O2 Delivery O2 Flow Rate FiO2 01/20/17 08:00 65 01/20/17 06:00 21 135/67 92 BIPAP 01/20/17 05:10 30 01/20/17 04:00 98.7 01/20/17 01:00 Intake and Output 01/19/17 01/19/17 01/20/17 15:00 23:00 07:00 Intake Total 600.00 ml 450 ml 100 ml Output Total 640 ml 835 ml 450 ml Balance -40.00 ml -385 ml -350 ml Exam Constitutional: alert, oriented Head: atraumatic, normocephalic Neck: non-tender, supple Respiratory: diminished breath sounds Cardiovascular: regular rate and rhythm Gastrointestinal: nl liver, spleen, non-tender, soft Extremities: edema Results Result Diagram: 01/19/17 0325 01/20/17 0611 Results 24 hrs Laboratory Tests Test 01/19/17 17:26 01/19/17 18:45 01/19/17 21:25 01/20/17 00:24 Bedside Glucose 334 H 243 H Creatine Kinase 80 62 Creatine Kinase Index 1.8 1.8 Creatinine Kinase MB (Mass) 1.44 1.14 Troponin I 0.155 *H 0.149 *H Test 01/20/17 03:07 01/20/17 06:11 01/20/17 08:17 01/20/17 10:45 Bedside Glucose 135 149 146 Blood Urea Nitrogen 29 H Creatinine 1.40 H Triglycerides Level 250 H Cholesterol Level 210 H LDL Cholesterol, Calculated 125 HDL Cholesterol 35 Cholesterol/HDL Ratio 6.0 Medications Medications Current Medications Ondansetron HCl (Zofran Inj) 4 mg Q6H PRN IV NAUSEA AND/OR VOMITING; Start at 02:00 Acetaminophen (Tylenol Supp) 650 mg Q4H PRN [place] PAIN LEVEL 1-3 OR FEVER; Start 01/19/17 at 02:00 Morphine Sulfate (morphine) 2 mg Q4H PRN IV PAIN LEVEL 7-10; Start 01/19/17 at 02:00 Lorazepam 0.5 mg 0.5 mg Q4H PRN IV ANXIETY; Start 01/19/17 at 02:00 Cefepime HCl 50 ml @ 100 mls/hr Q12 IVPB Last administered on 01/20/17 08:31 ; Admin Dose 100 MLS/HR; Start 01/19/17 at 09:00 Vancomycin HCl/ Sodium Chloride (Vancocin/NS) 250 ml @ 83.333 mls/ hr Q24H IVPB Last administered on 01/20/17 10:48; Admin Dose 83.333 MLS/HR; Start at 11:00 Miscellaneous Information 1 ea NOTE XX ; Start 01/19/17 at 06:30 Glucose (Glutose) 15 gm Q15M PRN PO DECREASED GLUCOSE; Start 01/19/17 at 06:30 Glucose (Glutose) 22.5 gm Q15M PRN PO DECREASED GLUCOSE; Start 01/19/17 at 06: 30 Dextrose (D50w Syringe) 25 ml Q15M PRN IV DECREASED GLUCOSE; Start 01/19/17 at 06:30 Dextrose (D50w Syringe) 50 ml Q15M PRN IV DECREASED GLUCOSE; Start 01/19/17 at 06:30 Glucagon (Glucagen) 1 mg Q15M PRN IM DECREASED GLUCOSE; Start 01/19/17 at 06: 30 Glucose (Glutose) 15 gm Q15M PRN BUCCAL DECREASED GLUCOSE; Start 01/19/17 at 06:30 Aspirin (Aspirin) 81 mg DAILY PO Last administered on 01/20/17 08:31; Admin Dose 81 MG; Start 01/19/17 at 09:00 Atorvastatin Calcium (Lipitor) 40 mg HS PO Last administered on 01/19/17 21: 23; Admin Dose 40 MG; Start 01/19/17 at 21:00 Clonazepam (Klonopin) 0.25 mg DAILY PRN PO ANXIETY; Start 01/19/17 at 06:30 Isosorbide Mononitrate (Imdur) 60 mg DAILY PO Last administered on 01/20/17 08:37; Admin Dose 60 MG; Start 01/19/17 at 09:00 Metoprolol Succinate (Toprol Xl) 50 mg DAILY PO Last administered on 08:37; Admin Dose 50 MG; Start 01/19/17 at 09:00 Paroxetine HCl (Paxil) 10 mg DAILY PO Last administered on 01/20/17 08:32; Admin Dose 10 MG; Start 01/19/17 at 09:00 Trazodone HCl (Desyrel) 50 mg QHS PO Last administered on 01/19/17 21:23; Admin Dose 50 MG; Start 01/19/17 at 21:00 Furosemide (Lasix) 20 mg DAILY@06 IV Last administered on 01/19/17 06:51; Admin Dose 20 MG; Start 01/19/17 at 06:30 Diagnostic Test (Pha) (Accu-Chek) 1 ea 02 XX Last administered on 01/20/17 02 :00; Admin Dose 1 EA; Start 01/20/17 at 02:00 Insulin Glargine (Lantus) 50 unit DAILY@08 SC Last administered on 01/20/17 08:30; Admin Dose 50 UNIT; Start 01/20/17 at 08:00 Insulin Human NPH (Humulin N) 60 unit DAILY@22 SC Last administered on 21:27; Admin Dose 60 UNIT; Start 01/19/17 at 22:00 Linagliptin (Tradjenta) 5 mg DAILY PO Last administered on 01/20/17 08:31; Admin Dose 5 MG; Start 01/20/17 at 09:00 Empaglifozin (Jardiance) 10 mg DAILY@08 PO Last administered on 01/20/17t 08: 31; Admin Dose 10 MG; Start 01/20/17 at 08:00 Mupirocin (Bactroban) 1 applic BID TOP ; Start 01/20/17 at 11:00 DAMION LARA M.D. Jan 20, 2017 12:17
--- NOTE | 2017-01-20 12:56 | RADRPT ---
Vent Rate: 69 bpm RR Interval: 0 msec OK Interval: 158 msec QRS Duration: 84 msec QT Interval: 400 msec QTC Interval: 428 msec P-R-T [place]: 71 - 96 - 22 degrees Normal sinus rhythm Rightward axis Nonspecific T wave abnormality Abnormal ECG Electronically Signed By: Gerard Baltazar [id number]
--- NOTE | 2017-01-20 12:56 | RADRPT ---
Vent Rate: 69 bpm RR Interval: 0 msec NC Interval: 158 msec QRS Duration: 84 msec QT Interval: 400 msec QTC Interval: 428 msec P-R-T [place]: 71 - 96 - 22 degrees Normal sinus rhythm Rightward axis Nonspecific T wave abnormality Abnormal ECG Electronically Signed By: Gerard Baltazar [id number]
--- NOTE | 2017-01-20 12:56 | RADRPT ---
Vent Rate: 69 bpm RR Interval: 0 msec PA Interval: 158 msec QRS Duration: 84 msec QT Interval: 400 msec QTC Interval: 428 msec P-R-T [place]: 71 - 96 - 22 degrees Normal sinus rhythm Rightward axis Nonspecific T wave abnormality Abnormal ECG Electronically Signed By: Gerard Baltazar [id number]
[2017-01-20] MEDS: traZODone 50 MG TAB PO SCH (21:19)
[2017-01-20] MEDS: ATORVASTATIN 40 MG TAB PO SCH (21:19)
[2017-01-20] MEDS: NPH, HUMAN INSULIN ISOPHANE 3ML VIAL SC SCH (21:32)
[2017-01-21] VITALS (23 sets, daily range): BP systolic 77–142; BP diastolic 42–76; PULSE 61–79; RESP 11–24
[2017-01-21] MEDS: ACCU-CHEK XX SCH (02:00)
[2017-01-21] MEDS: FUROSEMIDE 40 MG INJ IV SCH ×2 (06:16→17:47)
[2017-01-21] MEDS: INSULIN ASPART [NOVOLOG] 3 ML PEN SC SCH ×8 (07:05→21:00)
[2017-01-21] MEDS: INSULIN GLARGINE [LANtus] 3 ML PEN SC SCH (07:56)
[2017-01-21] MEDS: EMPAGLIFLOZIN 10 MG TABLET PO SCH (07:58)
[2017-01-21] MEDS: ASPIRIN 81 MG TAB PO SCH (08:00)
[2017-01-21] MEDS: PAROXETINE 10 MG TAB PO SCH (08:00)
[2017-01-21] MEDS: LINAGLIPTIN 5 MG TABLET PO SCH (08:00)
[2017-01-21] MEDS: MUPIROCIN 2% 22 GM OINT TOP SCH ×2 (08:03→21:32)
[2017-01-21] MEDS: CEFEPIME 1GM/50 ML (PMX) 50 ML IVPB SCH ×2 (08:05→21:32)
--- NOTE | 2017-01-21 08:37 | CONS ---
Date/Time of Note Date/Time of Note DATE: 01/21/17 TIME: 08:35 Assessment/Plan Assessment/Plan Problems: (1) Elevated troponin Status: Acute Comment: As per cardiology consult (2) Diastolic dysfunction with acute on chronic heart failure Status: Chronic Comment: Patient is responding nicely to treatment. Continue therapeutics (3) DM w/o complication type II, uncontrolled Status: Chronic Comment: Very tight control. We will back off slightly on the morning dose of Lantus. As noted in my note yesterday she is actually a patient who probably should be screened for hypercortisolism (4) Hypertension Status: Acute Comment: Adequate control Qualifiers: Hypertension type: essential hypertension Qualified Code: I10 - Essential hypertension (5) MRSA nasal colonization Status: Acute Comment: As per primary team (6) Sleep apnea Status: Acute Comment: Nocturnal BiPAP if patient agrees to Qualifiers: Sleep apnea type: obstructive Qualified Code: G47.33 - Obstructive sleep apnea syndrome Consultation Date/Type/Reason Admit Date/Time Jan 19, 2017 at 01:40 Initial Consult Date 01/19/17 Type of Consultation: Endocrinology Reason for Consultation Diabetes mellitus type 2 with significant insulin resistance Referring Provider: MADHU CAZARES 24 HR Interval Summary Free Text/Dictation Patient reports her breathing is not perfect but it is improved Constitutional: no complaints Exam/Review of Systems Vital Signs Vitals Vital Signs Date Time Temp Pulse Resp B/P Pulse Ox O2 Delivery O2 Flow Rate FiO2 01/21/17 05:10 61 98 30 01/21/17 05:00 18 125/51 BIPAP 01/21/17 04:00 98.5 01/20/17 22:00 5.0 Intake and Output 01/20/17 01/20/17 01/21/17 15:00 23:00 07:00 Intake Total 600 ml 1110 ml 300 ml Output Total 1025 ml 1130 ml 810 ml Balance -425 ml -20 ml -510 ml Exam Constitutional: alert, oriented Neck: non-tender, supple Respiratory: crackles/rales Cardiovascular: nl pulses, regular rate and rhythm Results Result Diagram: 01/19/17 0325 01/20/17 0611 Results 24 hrs Laboratory Tests Test 01/20/17 10:45 01/20/17 16:50 01/20/17 21:23 01/21/17 07:52 Bedside Glucose 146 74 87 109 Medications Medications Current Medications Ondansetron HCl (Zofran Inj) 4 mg Q6H PRN IV NAUSEA AND/OR VOMITING; Start at 02:00 Acetaminophen (Tylenol Supp) 650 mg Q4H PRN [place] PAIN LEVEL 1-3 OR FEVER; Start 01/19/17 at 02:00 Morphine Sulfate (morphine) 2 mg Q4H PRN IV PAIN LEVEL 7-10; Start 01/19/17 at 02:00 Lorazepam 0.5 mg 0.5 mg Q4H PRN IV ANXIETY; Start 01/19/17 at 02:00 Cefepime HCl 50 ml @ 100 mls/hr Q12 IVPB Last administered on 01/21/17 08:05 ; Admin Dose 100 MLS/HR; Start 01/19/17 at 09:00 Vancomycin HCl/ Sodium Chloride (Vancocin/NS) 250 ml @ 83.333 mls/ hr Q24H IVPB Last administered on 01/20/17 10:48; Admin Dose 83.333 MLS/HR; Start at 11:00 Miscellaneous Information 1 ea NOTE XX ; Start 01/19/17 at 06:30 Glucose (Glutose) 15 gm Q15M PRN PO DECREASED GLUCOSE; Start 01/19/17 at 06:30 Glucose (Glutose) 22.5 gm Q15M PRN PO DECREASED GLUCOSE; Start 01/19/17 at 06: 30 Dextrose (D50w Syringe) 25 ml Q15M PRN IV DECREASED GLUCOSE; Start 01/19/17 at 06:30 Dextrose (D50w Syringe) 50 ml Q15M PRN IV DECREASED GLUCOSE; Start 01/19/17 at 06:30 Glucagon (Glucagen) 1 mg Q15M PRN IM DECREASED GLUCOSE; Start 01/19/17 at 06: 30 Glucose (Glutose) 15 gm Q15M PRN BUCCAL DECREASED GLUCOSE; Start 01/19/17 at 06:30 Aspirin (Aspirin) 81 mg DAILY PO Last administered on 01/21/17 08:00; Admin Dose 81 MG; Start 01/19/17 at 09:00 Atorvastatin Calcium (Lipitor) 40 mg HS PO Last administered on 01/20/17 21: 19; Admin Dose 40 MG; Start 01/19/17 at 21:00 Clonazepam (Klonopin) 0.25 mg DAILY PRN PO ANXIETY; Start 01/19/17 at 06:30 Metoprolol Succinate (Toprol Xl) 50 mg DAILY PO Last administered on 08:37; Admin Dose 50 MG; Start 01/19/17 at 09:00 Paroxetine HCl (Paxil) 10 mg DAILY PO Last administered on 01/21/17 08:00; Admin Dose 10 MG; Start 01/19/17 at 09:00 Trazodone HCl (Desyrel) 50 mg QHS PO Last administered on 01/20/17 21:19; Admin Dose 50 MG; Start 01/19/17 at 21:00 Diagnostic Test (Pha) (Accu-Chek) 1 ea 02 XX Last administered on 01/20/17 02 :00; Admin Dose 1 EA; Start 01/20/17 at 02:00 Insulin Human NPH (Humulin N) 60 unit DAILY@22 SC Last administered on 21:32; Admin Dose 60 UNIT; Start 01/19/17 at 22:00 Linagliptin (Tradjenta) 5 mg DAILY PO Last administered on 01/21/17 08:00; Admin Dose 5 MG; Start 01/20/17 at 09:00 Empaglifozin (Jardiance) 10 mg DAILY@08 PO Last administered on 01/21/17 07: 58; Admin Dose 10 MG; Start 01/20/17 at 08:00 Mupirocin (Bactroban) 1 applic BID TOP Last administered on 01/21/17 08:03; Admin Dose 1 APPLIC; Start 01/20/17 at 11:00 Insulin Glargine (Lantus) 46 unit DAILY@08 SC ; Start 01/22/17 at 08:00; Status UNV Dexamethasone (Decadron) 1 mg ONCE ONCE PO ; Start 01/21/17 at 23:30; Stop at 23:31; Status IVA LOPEZ MD Jan 21, 2017 08:37
[2017-01-21] MEDS: METOPROLOL (XL) 50 MG TAB PO SCH (09:00)
--- NOTE | 2017-01-21 10:08 | CONS ---
Date/Time of Note Date/Time of Note DATE: 01/21/17 TIME: 10:06 Assessment/Plan Assessment/Plan Additional Assessment/Plan Assessment recommendations; 1. Patient admitted with CHF exacerbation with significant clinical improvement. 2. Underlying morbid obesity. Likely hypoventilation/ obesity syndrome with possibility of underlying sleep apnea as well. 3. History of coronary artery disease, diabetes and hypertension. Continue current treatment. Consider transfer to telemetry unit. Consultation Date/Type/Reason Admit Date/Time Jan 19, 2017 at 01:40 Type of Consultation: Pulmonary/critical care Referring Provider: MADHU CAZARES 24 HR Interval Summary Free Text/Dictation Patient's condition is stable. Reports markedly improved shortness of breath. Patient has been weaned down to nasal cannula. Denies any chest pain, wheezing. General exam; elderly woman, awake and alert. Currently in no distress. Exam/Review of Systems Vital Signs Vitals Vital Signs Date Time Temp Pulse Resp B/P Pulse Ox O2 Delivery O2 Flow Rate FiO2 01/21/17 09:00 63 24 111/60 97 01/21/17 08:00 98.2 01/21/17 07:00 BIPAP 01/21/17 05:10 30 01/20/17 22:00 5.0 Intake and Output 01/20/17 01/20/17 01/21/17 15:00 23:00 07:00 Intake Total 600 ml 1110 ml 300 ml Output Total 1025 ml 1130 ml 1010 ml Balance -425 ml -20 ml -710 ml Exam HEENT exam; supple neck, no lymphadenopathy midline trachea no thyromegaly patient is edentulous. Pupils are small bilaterally. JVD difficult to see because of short neck. Chest exam; clear to auscultation. S1-S2 audible, no murmurs. Regular rhythm. Abdomen exam; soft, protuberant. Nontender. Bowel sounds audible. Extremity exam; no peripheral edema. Pulses 1+ bilaterally. 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 Results Result Diagram: 01/19/17 0325 01/20/17 0611 Results 24 hrs Laboratory Tests Test 01/20/17 10:45 01/20/17 16:50 01/20/17 21:23 01/21/17 07:52 Bedside Glucose 146 74 87 109 Medications Medications Current Medications Ondansetron HCl (Zofran Inj) 4 mg Q6H PRN IV NAUSEA AND/OR VOMITING; Start at 02:00 Acetaminophen (Tylenol Supp) 650 mg Q4H PRN [place] PAIN LEVEL 1-3 OR FEVER; Start 01/19/17 at 02:00 Morphine Sulfate (morphine) 2 mg Q4H PRN IV PAIN LEVEL 7-10; Start 01/19/17 at 02:00 Lorazepam 0.5 mg 0.5 mg Q4H PRN IV ANXIETY; Start 01/19/17 at 02:00 Cefepime HCl 50 ml @ 100 mls/hr Q12 IVPB Last administered on 01/21/17 08:05 ; Admin Dose 100 MLS/HR; Start 01/19/17 at 09:00 Vancomycin HCl/ Sodium Chloride (Vancocin/NS) 250 ml @ 83.333 mls/ hr Q24H IVPB Last administered on 01/20/17 10:48; Admin Dose 83.333 MLS/HR; Start at 11:00 Miscellaneous Information 1 ea NOTE XX ; Start 01/19/17 at 06:30 Glucose (Glutose) 15 gm Q15M PRN PO DECREASED GLUCOSE; Start 01/19/17 at 06:30 Glucose (Glutose) 22.5 gm Q15M PRN PO DECREASED GLUCOSE; Start 01/19/17 at 06: 30 Dextrose (D50w Syringe) 25 ml Q15M PRN IV DECREASED GLUCOSE; Start 01/19/17 at 06:30 Dextrose (D50w Syringe) 50 ml Q15M PRN IV DECREASED GLUCOSE; Start 01/19/17 at 06:30 Glucagon (Glucagen) 1 mg Q15M PRN IM DECREASED GLUCOSE; Start 01/19/17 at 06: 30 Glucose (Glutose) 15 gm Q15M PRN BUCCAL DECREASED GLUCOSE; Start 01/19/17 at 06:30 Aspirin (Aspirin) 81 mg DAILY PO Last administered on 01/21/17 08:00; Admin Dose 81 MG; Start 01/19/17 at 09:00 Atorvastatin Calcium (Lipitor) 40 mg HS PO Last administered on 01/20/17 21: 19; Admin Dose 40 MG; Start 01/19/17 at 21:00 Clonazepam (Klonopin) 0.25 mg DAILY PRN PO ANXIETY; Start 01/19/17 at 06:30 Metoprolol Succinate (Toprol Xl) 50 mg DAILY PO Last administered on 08:37; Admin Dose 50 MG; Start 01/19/17 at 09:00 Paroxetine HCl (Paxil) 10 mg DAILY PO Last administered on 01/21/17 08:00; Admin Dose 10 MG; Start 01/19/17 at 09:00 Trazodone HCl (Desyrel) 50 mg QHS PO Last administered on 01/20/17 21:19; Admin Dose 50 MG; Start 01/19/17 at 21:00 Diagnostic Test (Pha) (Accu-Chek) 1 ea 02 XX Last administered on 01/20/17 02 :00; Admin Dose 1 EA; Start 01/20/17 at 02:00 Insulin Human NPH (Humulin N) 60 unit DAILY@22 SC Last administered on 21:32; Admin Dose 60 UNIT; Start 01/19/17 at 22:00 Linagliptin (Tradjenta) 5 mg DAILY PO Last administered on 01/21/17 08:00; Admin Dose 5 MG; Start 01/20/17 at 09:00 Empaglifozin (Jardiance) 10 mg DAILY@08 PO Last administered on 01/21/17 07: 58; Admin Dose 10 MG; Start 01/20/17 at 08:00 Mupirocin (Bactroban) 1 applic BID TOP Last administered on 01/21/17 08:03; Admin Dose 1 APPLIC; Start 01/20/17 at 11:00 Insulin Glargine (Lantus) 46 unit DAILY@08 SC ; Start 01/22/17 at 08:00 Dexamethasone (Decadron) 1 mg ONCE ONCE PO ; Start 01/21/17 at 23:30; Stop at 23:31 Magnesium Hydroxide (Milk Of Mag) 30 ml BID PRN PO CONSTIPATION; Start at 10:30 MIGUEL RIVERA Jan 21, 2017 10:08
[2017-01-21] MEDS ORDERED: MAGNESIUM HYDROXIDE 30ML CUP PO PRN (10:30)
[2017-01-21] MEDS: VANCOMYCIN 1.5 GM in SOD CHLORIDE 0.9% 250 ML IVPB SCH (11:15)
--- NOTE | 2017-01-21 13:42 | CONS ---
Date/Time of Note Date/Time of Note DATE: 01/21/17 TIME: 13:41 Assessment/Plan Assessment/Plan Additional Assessment/Plan 1. Acute exacerbation of diastolic heart failure 2. Abnormal electrocardiogram 3. Hypertension. 4. Dyslipidemia. 5. Diabetes mellitus. 6. Renal failure. 7. Obstructive sleep apnea on Bipap 9. Obesity. 10. Pneumonia hemodynamically stable Continue Antibiotics Continue Toprol Discontinued Imdur Continue Lipitor Continue Insulin Continue Bipap PRN Continue Nebs as scheduled Monitor on Tele Consultation Date/Type/Reason Admit Date/Time Jan 19, 2017 at 01:40 Initial Consult Date 01/19/17 Type of Consultation: Pulmonary/critical care Referring Provider: MADHU CAZARES Exam/Review of Systems Vital Signs Vitals Vital Signs Date Time Temp Pulse Resp B/P Pulse Ox O2 Delivery O2 Flow Rate FiO2 01/21/17 12:53 98.7 69 21 127/56 97 01/21/17 08:00 Nasal Cannula 5.0 01/21/17 05:10 30 Intake and Output 01/20/17 01/20/17 01/21/17 15:00 23:00 07:00 Intake Total 600 ml 1110 ml 300 ml Output Total 1025 ml 1130 ml 1010 ml Balance -425 ml -20 ml -710 ml Exam Constitutional: alert, oriented Head: atraumatic, normocephalic Respiratory: clear to auscultation Cardiovascular: regular rate and rhythm Gastrointestinal: nl liver, spleen, non-tender, soft Extremities: normal pulses Results Result Diagram: 01/19/17 0325 01/20/17 0611 Results 24 hrs Laboratory Tests Test 01/20/17 16:50 01/20/17 21:23 01/21/17 07:52 01/21/17 11:17 Bedside Glucose 74 87 109 147 Test 01/21/17 12:55 Bedside Glucose 88 Medications Medications Current Medications Ondansetron HCl (Zofran Inj) 4 mg Q6H PRN IV NAUSEA AND/OR VOMITING; Start at 02:00 Acetaminophen (Tylenol Supp) 650 mg Q4H PRN [place] PAIN LEVEL 1-3 OR FEVER; Start 01/19/17 at 02:00 Morphine Sulfate (morphine) 2 mg Q4H PRN IV PAIN LEVEL 7-10; Start 01/19/17 at 02:00 Lorazepam 0.5 mg 0.5 mg Q4H PRN IV ANXIETY; Start 01/19/17 at 02:00 Cefepime HCl 50 ml @ 100 mls/hr Q12 IVPB Last administered on 01/21/17 08:05 ; Admin Dose 100 MLS/HR; Start 01/19/17 at 09:00 Vancomycin HCl/ Sodium Chloride (Vancocin/NS) 250 ml @ 83.333 mls/ hr Q24H IVPB Last administered on 01/21/17 11:15; Admin Dose 83.333 MLS/HR; Start at 11:00 Miscellaneous Information 1 ea NOTE XX ; Start 01/19/17 at 06:30 Glucose (Glutose) 15 gm Q15M PRN PO DECREASED GLUCOSE; Start 01/19/17 at 06:30 Glucose (Glutose) 22.5 gm Q15M PRN PO DECREASED GLUCOSE; Start 01/19/17 at 06: 30 Dextrose (D50w Syringe) 25 ml Q15M PRN IV DECREASED GLUCOSE; Start 01/19/17 at 06:30 Dextrose (D50w Syringe) 50 ml Q15M PRN IV DECREASED GLUCOSE; Start 01/19/17 at 06:30 Glucagon (Glucagen) 1 mg Q15M PRN IM DECREASED GLUCOSE; Start 01/19/17 at 06: 30 Glucose (Glutose) 15 gm Q15M PRN BUCCAL DECREASED GLUCOSE; Start 01/19/17 at 06:30 Aspirin (Aspirin) 81 mg DAILY PO Last administered on 01/21/17 08:00; Admin Dose 81 MG; Start 01/19/17 at 09:00 Atorvastatin Calcium (Lipitor) 40 mg HS PO Last administered on 01/20/17 21: 19; Admin Dose 40 MG; Start 01/19/17 at 21:00 Clonazepam (Klonopin) 0.25 mg DAILY PRN PO ANXIETY; Start 01/19/17 at 06:30 Metoprolol Succinate (Toprol Xl) 50 mg DAILY PO Last administered on 08:37; Admin Dose 50 MG; Start 01/19/17 at 09:00 Paroxetine HCl (Paxil) 10 mg DAILY PO Last administered on 01/21/17 08:00; Admin Dose 10 MG; Start 01/19/17 at 09:00 Trazodone HCl (Desyrel) 50 mg QHS PO Last administered on 01/20/17 21:19; Admin Dose 50 MG; Start 01/19/17 at 21:00 Diagnostic Test (Pha) (Accu-Chek) 1 ea 02 XX Last administered on 01/20/17 02 :00; Admin Dose 1 EA; Start 01/20/17 at 02:00 Insulin Human NPH (Humulin N) 60 unit DAILY@22 SC Last administered on 21:32; Admin Dose 60 UNIT; Start 01/19/17 at 22:00 Linagliptin (Tradjenta) 5 mg DAILY PO Last administered on 01/21/17 08:00; Admin Dose 5 MG; Start 01/20/17 at 09:00 Empaglifozin (Jardiance) 10 mg DAILY@08 PO Last administered on 01/21/17 07: 58; Admin Dose 10 MG; Start 01/20/17 at 08:00 Mupirocin (Bactroban) 1 applic BID TOP Last administered on 01/21/17 08:03; Admin Dose 1 APPLIC; Start 01/20/17 at 11:00 Insulin Glargine (Lantus) 46 unit DAILY@08 SC ; Start 01/22/17 at 08:00 Dexamethasone (Decadron) 1 mg ONCE ONCE PO ; Start 01/21/17 at 23:30; Stop at 23:31 Magnesium Hydroxide (Milk Of Mag) 30 ml BID PRN PO CONSTIPATION Last administered on 01/21/17 11:58; Admin Dose 30 ML; Start 01/21/17 at 10:30 Bisacodyl (Dulcolax) 10 mg DAILY PRN PO CONSTIPATION; Start 01/21/17 at 10:30 DAMION LARA M.D. Jan 21, 2017 13:42
[2017-01-21] MEDS: traZODone 50 MG TAB PO SCH (21:31)
[2017-01-21] MEDS: ATORVASTATIN 40 MG TAB PO SCH (21:31)
[2017-01-21] MEDS: NPH, HUMAN INSULIN ISOPHANE 3ML VIAL SC SCH (21:52)
[2017-01-21] MEDS ORDERED: DEXAMETHASONE 1 MG TAB PO ONE (23:30)
[2017-01-22] VITALS (14 sets, daily range): BP systolic 122–151; BP diastolic 55–73; PULSE 64–79; RESP 20–24
[2017-01-22] MEDS: ACCU-CHEK XX SCH (02:00)
[2017-01-22] MEDS: FUROSEMIDE 40 MG INJ IV SCH ×2 (05:40→18:08)
[2017-01-22] MEDS: INSULIN ASPART [NOVOLOG] 3 ML PEN SC SCH ×7 (09:40→21:00)
[2017-01-22] MEDS: BISACODYL (EC) 5 MG TAB PO PRN (09:41)
[2017-01-22] MEDS: INSULIN GLARGINE [LANtus] 3 ML PEN SC SCH (09:41)
[2017-01-22] MEDS: EMPAGLIFLOZIN 10 MG TABLET PO SCH (09:42)
[2017-01-22] MEDS: MUPIROCIN 2% 22 GM OINT TOP SCH ×2 (09:42→22:01)
[2017-01-22] MEDS: ASPIRIN 81 MG TAB PO SCH (09:42)
[2017-01-22] MEDS: PAROXETINE 10 MG TAB PO SCH (09:43)
[2017-01-22] MEDS: LINAGLIPTIN 5 MG TABLET PO SCH (09:43)
[2017-01-22] MEDS: METOPROLOL (XL) 50 MG TAB PO SCH (09:43)
[2017-01-22] MEDS: CEFEPIME 1GM/50 ML (PMX) 50 ML IVPB SCH ×2 (09:43→22:03)
--- NOTE | 2017-01-22 12:44 | CONS ---
Date/Time of Note Date/Time of Note DATE: 01/22/17 TIME: 12:42 Assessment/Plan Assessment/Plan Additional Assessment/Plan Assessment recommendations; 1. Patient admitted with CHF exacerbation with significant clinical improvement. 2. Chronic hypoxemia. 3. History of coronary artery disease, hypertension and diabetes. 4. Significant improvement in hypoxemia. Patient currently on 2 L nasal cannula. Continue current treatment. Consider discharge. Patient does have home oxygen. Consultation Date/Type/Reason Admit Date/Time Jan 19, 2017 at 01:40 Type of Consultation: Pulmonary/critical care Referring Provider: MADHU CAZARES 24 HR Interval Summary Free Text/Dictation Patient's condition is stable. Denies any shortness breath, chest pain or wheezing. She has been weaned down to 2 L nasal cannula and maintaining adequate O2 saturation. General exam; elderly woman, awake alert, currently in no distress. Exam/Review of Systems Vital Signs Vitals Vital Signs Date Time Temp Pulse Resp B/P Pulse Ox O2 Delivery O2 Flow Rate FiO2 01/22/17 12:00 73 01/22/17 11:35 97.3 21 126/58 97 01/22/17 03:00 30 01/21/17 23:26 2.0 01/21/17 21:35 Nasal Cannula Intake and Output 01/21/17 01/21/17 01/22/17 15:00 23:00 07:00 Intake Total 600 ml 800 ml 700 ml Output Total 1050 ml 600 ml 1050 ml Balance -450 ml 200 ml -350 ml Exam HEENT exam; supple neck, no JVD. No lymphadenopathy. Midline trachea. No thyromegaly. Patient is edentulous. Chest exam; diminished but clear breath sounds. S1-S2 audible, no murmurs. Regular rhythm. Abdomen exam; soft, protuberant. No organomegaly. Bowel sounds audible. Extremity exam; no peripheral edema. Pulses 1+ bilaterally. 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 Results Result Diagram: 01/22/17 0645 01/22/17 0645 Results 24 hrs Laboratory Tests Test 01/21/17 12:55 01/21/17 17:35 01/21/17 21:41 01/22/17 05:35 Bedside Glucose 88 77 82 172 Test 01/22/17 06:45 01/22/17 09:13 01/22/17 10:03 White Blood Count 10.9 H Red Blood Count 4.22 Hemoglobin 11.9 L Hematocrit 38.5 Mean Corpuscular Volume 91.2 Mean Corpuscular Hemoglobin 28.2 L Mean Corpuscular Hemoglobin Concent 30.9 L Red Cell Distribution Width 14.9 H Platelet Count 351 Mean Platelet Volume 9.4 Neutrophils % 81.5 H Lymphocytes % 9.6 L Monocytes % 5.2 Eosinophils % 2.3 Basophils % 0.3 Nucleated Red Blood Cells % 0.0 Neutrophils # 8.9 H Lymphocytes # 1.1 Monocytes # 0.6 Eosinophils # 0.3 Basophils # 0.0 Nucleated Red Blood Cells # 0.0 Sodium Level 142 Potassium Level 4.3 Chloride Level 98 Carbon Dioxide Level 37 H Anion Gap 11 Blood Urea Nitrogen 36 H Creatinine 1.19 H Glucose Level 199 Calcium Level 9.5 Random Cortisol 2.0 Bedside Glucose 221 H Vancomycin Level Trough 13.6 Medications Medications Current Medications Ondansetron HCl (Zofran Inj) 4 mg Q6H PRN IV NAUSEA AND/OR VOMITING; Start at 02:00 Acetaminophen (Tylenol Supp) 650 mg Q4H PRN [place] PAIN LEVEL 1-3 OR FEVER; Start 01/19/17 at 02:00 Morphine Sulfate (morphine) 2 mg Q4H PRN IV PAIN LEVEL 7-10; Start 01/19/17 at 02:00 Lorazepam 0.5 mg 0.5 mg Q4H PRN IV ANXIETY; Start 01/19/17 at 02:00 Cefepime HCl 50 ml @ 100 mls/hr Q12 IVPB Last administered on 01/22/17 09:43 ; Admin Dose 100 MLS/HR; Start 01/19/17 at 09:00 Vancomycin HCl/ Sodium Chloride (Vancocin/NS) 250 ml @ 83.333 mls/ hr Q24H IVPB Last administered on 01/21/17 11:15; Admin Dose 83.333 MLS/HR; Start at 11:00 Miscellaneous Information 1 ea NOTE XX ; Start 01/19/17 at 06:30 Glucose (Glutose) 15 gm Q15M PRN PO DECREASED GLUCOSE; Start 01/19/17 at 06:30 Glucose (Glutose) 22.5 gm Q15M PRN PO DECREASED GLUCOSE; Start 01/19/17 at 06: 30 Dextrose (D50w Syringe) 25 ml Q15M PRN IV DECREASED GLUCOSE; Start 01/19/17 at 06:30 Dextrose (D50w Syringe) 50 ml Q15M PRN IV DECREASED GLUCOSE; Start 01/19/17 at 06:30 Glucagon (Glucagen) 1 mg Q15M PRN IM DECREASED GLUCOSE; Start 01/19/17 at 06: 30 Glucose (Glutose) 15 gm Q15M PRN BUCCAL DECREASED GLUCOSE; Start 01/19/17 at 06:30 Aspirin (Aspirin) 81 mg DAILY PO Last administered on 01/22/17 09:42; Admin Dose 81 MG; Start 01/19/17 at 09:00 Atorvastatin Calcium (Lipitor) 40 mg HS PO Last administered on 01/21/17 21: 31; Admin Dose 40 MG; Start 01/19/17 at 21:00 Clonazepam (Klonopin) 0.25 mg DAILY PRN PO ANXIETY; Start 01/19/17 at 06:30 Metoprolol Succinate (Toprol Xl) 50 mg DAILY PO Last administered on 09:43; Admin Dose 50 MG; Start 01/19/17 at 09:00 Paroxetine HCl (Paxil) 10 mg DAILY PO Last administered on 01/22/17 09:43; Admin Dose 10 MG; Start 01/19/17 at 09:00 Trazodone HCl (Desyrel) 50 mg QHS PO Last administered on 01/21/17 21:31; Admin Dose 50 MG; Start 01/19/17 at 21:00 Diagnostic Test (Pha) (Accu-Chek) 1 ea 02 XX Last administered on 01/20/17 02 :00; Admin Dose 1 EA; Start 01/20/17 at 02:00 Insulin Human NPH (Humulin N) 60 unit DAILY@22 SC Last administered on 21:52; Admin Dose 60 UNIT; Start 01/19/17 at 22:00 Linagliptin (Tradjenta) 5 mg DAILY PO Last administered on 01/22/17 09:43; Admin Dose 5 MG; Start 01/20/17 at 09:00 Empaglifozin (Jardiance) 10 mg DAILY@08 PO Last administered on 01/22/17 09: 42; Admin Dose 10 MG; Start 01/20/17 at 08:00 Mupirocin (Bactroban) 1 applic BID TOP Last administered on 01/22/17 09:42; Admin Dose 1 APPLIC; Start 01/20/17 at 11:00 Insulin Glargine (Lantus) 46 unit DAILY@08 SC Last administered on 01/22/17 09:41; Admin Dose 46 UNIT; Start 01/22/17 at 08:00 Magnesium Hydroxide (Milk Of Mag) 30 ml BID PRN PO CONSTIPATION Last administered on 01/21/17 11:58; Admin Dose 30 ML; Start 01/21/17 at 10:30 Bisacodyl (Dulcolax) 10 mg DAILY PRN PO CONSTIPATION Last administered on 01/22 09:41; Admin Dose 10 MG; Start 01/21/17 at 10:30 MIGUEL RIVERA Jan 22, 2017 12:44
[2017-01-22] MEDS: VANCOMYCIN 1.5 GM in SOD CHLORIDE 0.9% 250 ML IVPB SCH (12:46)
--- NOTE | 2017-01-22 13:47 | CONS ---
Date/Time of Note Date/Time of Note DATE: 01/22/17 TIME: 13:41 Assessment/Plan Assessment/Plan Chief Complaint/Hosp Course IMPRESSION: 1. Congestive heart failure exacerbation, diastolic, acute on chronic.- 2. Abnormal electrocardiogram, assess for acute coronary syndrome. 3. Hypertension. 4. Dyslipidemia. 5. Diabetes mellitus. 6. Renal failure. 7. Fevers. 8. Obstructive sleep apnea. 9. Obesity. 10. Positive troponin-likely demand type 2 in setting in renal failure and resp distress Recc: -Tele -serial ecg's -Continue current Toprol/statin -start asa -Contineu lasix diuresis and follow creatnine/volume status closely -Continue abx's and f/u cx data -Ongoing endocrine follow-up with adjustment of insulin therapy Problems: Consultation Date/Type/Reason Admit Date/Time Jan 19, 2017 at 01:40 Initial Consult Date 01/19/17 Type of Consultation: cardiology Reason for Consultation CHF Referring Provider: MADHU CAZARES Exam/Review of Systems Vital Signs Vitals Vital Signs Date Time Temp Pulse Resp B/P Pulse Ox O2 Delivery O2 Flow Rate FiO2 01/22/17 12:00 73 01/22/17 11:35 97.3 21 126/58 97 01/22/17 03:00 30 01/21/17 23:26 2.0 01/21/17 21:35 Nasal Cannula Intake and Output 01/21/17 01/21/17 01/22/17 15:00 23:00 07:00 Intake Total 600 ml 800 ml 700 ml Output Total 1050 ml 600 ml 1050 ml Balance -450 ml 200 ml -350 ml Exam Review of Systems: CONSTITUTIONAL: No fevers, chills. PULMONARY: mild sob-improving CARDIOVASCULAR: No chest pain/palpitations GASTROINTESTINAL: No nausea/vomiting. GENITOURINARY: No hematuria/dysuria. MUSCULOSKELETAL: No myagias/arthalgias. PSYCHIATRIC: The patient denies depression. NEUROLOGIC: No weakness Constitutional: alert, oriented Psych: no complaints Head: normocephalic ENMT: mucosa pink and moist Neck: jvd (9 cm water), supple Respiratory: diminished breath sounds (at bases/B) Cardiovascular: regular rate and rhythm Gastrointestinal: non-tender, other (obese), soft Musculoskeletal: muscle tone (normal) Extremities: edema (none) Neurological: other (No focal deficits) Results Result Diagram: 01/22/17 0645 01/22/17 0645 Results 24 hrs Laboratory Tests Test 01/21/17 17:35 01/21/17 21:41 01/22/17 05:35 01/22/17 06:45 Bedside Glucose 77 82 172 White Blood Count 10.9 H Red Blood Count 4.22 Hemoglobin 11.9 L Hematocrit 38.5 Mean Corpuscular Volume 91.2 Mean Corpuscular Hemoglobin 28.2 L Mean Corpuscular Hemoglobin Concent 30.9 L Red Cell Distribution Width 14.9 H Platelet Count 351 Mean Platelet Volume 9.4 Neutrophils % 81.5 H Lymphocytes % 9.6 L Monocytes % 5.2 Eosinophils % 2.3 Basophils % 0.3 Nucleated Red Blood Cells % 0.0 Neutrophils # 8.9 H Lymphocytes # 1.1 Monocytes # 0.6 Eosinophils # 0.3 Basophils # 0.0 Nucleated Red Blood Cells # 0.0 Sodium Level 142 Potassium Level 4.3 Chloride Level 98 Carbon Dioxide Level 37 H Anion Gap 11 Blood Urea Nitrogen 36 H Creatinine 1.19 H Glucose Level 199 Calcium Level 9.5 Random Cortisol 2.0 Test 01/22/17 09:13 01/22/17 10:03 01/22/17 12:45 Bedside Glucose 221 H 220 Vancomycin Level Trough 13.6 Medications Medications Current Medications Ondansetron HCl (Zofran Inj) 4 mg Q6H PRN IV NAUSEA AND/OR VOMITING; Start at 02:00 Acetaminophen (Tylenol Supp) 650 mg Q4H PRN [place] PAIN LEVEL 1-3 OR FEVER; Start 01/19/17 at 02:00 Morphine Sulfate (morphine) 2 mg Q4H PRN IV PAIN LEVEL 7-10; Start 01/19/17 at 02:00 Lorazepam 0.5 mg 0.5 mg Q4H PRN IV ANXIETY; Start 01/19/17 at 02:00 Cefepime HCl 50 ml @ 100 mls/hr Q12 IVPB Last administered on 01/22/17 09:43 ; Admin Dose 100 MLS/HR; Start 01/19/17 at 09:00 Vancomycin HCl/ Sodium Chloride (Vancocin/NS) 250 ml @ 83.333 mls/ hr Q24H IVPB Last administered on 01/22/17 12:46; Admin Dose 83.333 MLS/HR; Start at 11:00 Miscellaneous Information 1 ea NOTE XX ; Start 01/19/17 at 06:30 Glucose (Glutose) 15 gm Q15M PRN PO DECREASED GLUCOSE; Start 01/19/17 at 06:30 Glucose (Glutose) 22.5 gm Q15M PRN PO DECREASED GLUCOSE; Start 01/19/17 at 06: 30 Dextrose (D50w Syringe) 25 ml Q15M PRN IV DECREASED GLUCOSE; Start 01/19/17 at 06:30 Dextrose (D50w Syringe) 50 ml Q15M PRN IV DECREASED GLUCOSE; Start 01/19/17 at 06:30 Glucagon (Glucagen) 1 mg Q15M PRN IM DECREASED GLUCOSE; Start 01/19/17 at 06: 30 Glucose (Glutose) 15 gm Q15M PRN BUCCAL DECREASED GLUCOSE; Start 01/19/17 at 06:30 Aspirin (Aspirin) 81 mg DAILY PO Last administered on 01/22/17 09:42; Admin Dose 81 MG; Start 01/19/17 at 09:00 Atorvastatin Calcium (Lipitor) 40 mg HS PO Last administered on 01/21/17 21: 31; Admin Dose 40 MG; Start 01/19/17 at 21:00 Clonazepam (Klonopin) 0.25 mg DAILY PRN PO ANXIETY; Start 01/19/17 at 06:30 Metoprolol Succinate (Toprol Xl) 50 mg DAILY PO Last administered on 09:43; Admin Dose 50 MG; Start 01/19/17 at 09:00 Paroxetine HCl (Paxil) 10 mg DAILY PO Last administered on 01/22/17 09:43; Admin Dose 10 MG; Start 01/19/17 at 09:00 Trazodone HCl (Desyrel) 50 mg QHS PO Last administered on 01/21/17 21:31; Admin Dose 50 MG; Start 01/19/17 at 21:00 Diagnostic Test (Pha) (Accu-Chek) 1 ea 02 XX Last administered on 01/20/17 02 :00; Admin Dose 1 EA; Start 01/20/17 at 02:00 Insulin Human NPH (Humulin N) 60 unit DAILY@22 SC Last administered on 21:52; Admin Dose 60 UNIT; Start 01/19/17 at 22:00 Linagliptin (Tradjenta) 5 mg DAILY PO Last administered on 01/22/17 09:43; Admin Dose 5 MG; Start 01/20/17 at 09:00 Empaglifozin (Jardiance) 10 mg DAILY@08 PO Last administered on 01/22/17 09: 42; Admin Dose 10 MG; Start 01/20/17 at 08:00 Mupirocin (Bactroban) 1 applic BID TOP Last administered on 01/22/17 09:42; Admin Dose 1 APPLIC; Start 01/20/17 at 11:00 Insulin Glargine (Lantus) 46 unit DAILY@08 SC Last administered on 01/22/17 09:41; Admin Dose 46 UNIT; Start 01/22/17 at 08:00 Magnesium Hydroxide (Milk Of Mag) 30 ml BID PRN PO CONSTIPATION Last administered on 01/21/17 11:58; Admin Dose 30 ML; Start 01/21/17 at 10:30 Bisacodyl (Dulcolax) 10 mg DAILY PRN PO CONSTIPATION Last administered on 01/22 09:41; Admin Dose 10 MG; Start 01/21/17 at 10:30 TERRIE DUNN Jan 22, 2017 13:47
--- NOTE | 2017-01-22 16:47 | PN ---
Date/Time of Note Date/Time of Note DATE: 01/22/17 TIME: 16:45 Assessment/Plan VTE Prophylaxis VTE Prophylaxis Intervention: LMWH Lines/Catheters IV Catheter Type (from [facility]): Peripheral IV Central line still needed: Yes Urinary Cath still in place: Yes Reason Cath still needed: urinary retention Assessment/Plan Chief Complaint/Hosp Course Pt complains of constipation. Assessment/Plan - ARF 2 to pulm edema, resolving. Dr. Bravo is following in pulmonology consultation. - Diastolic acute on chronic congestive heart failure exacerbation. Continue Lasix. Dr. Cota is following in cardiology consultation. Continue to monitor electrolytes. - Positive troponin. - Hypertension. - Diabetes mellitus type 2 with hemoglobin A1c 9.2. Continue Lantus and pre- meal NovoLog as well as NovoLog per mild algorithm sliding scale. Dr. Bartholomew is following in endocrinology consultation. - Acute on chronic kidney disease. Continue to monitor BUN and creatinine. - Possible sleep apnea, continue BiPAP per pulmonology. - Hyperlipidemia. Continue statin. - Morbid obesity Further recommendations based on clinical course. Plan of care discussed with Dr. Garza. Problems: Exam/Review of Systems Vital Signs Vitals Vital Signs Date Time Temp Pulse Resp B/P Pulse Ox O2 Delivery O2 Flow Rate FiO2 01/22/17 16:00 79 01/22/17 15:43 97.4 20 151/62 96 01/22/17 08:00 Nasal Cannula 2.0 01/22/17 03:00 30 Intake and Output 01/21/17 01/21/17 01/22/17 15:00 23:00 07:00 Intake Total 600 ml 800 ml 700 ml Output Total 1050 ml 600 ml 1050 ml Balance -450 ml 200 ml -350 ml Exam Constitutional: alert, oriented Head: normocephalic Neck: supple Respiratory: diminished breath sounds Cardiovascular: nl pulses, regular rate and rhythm Gastrointestinal: non-tender, soft Extremities: normal pulses Neurological: nl mental status Results Result Diagram: 01/22/17 0645 01/22/17 0645 Results 24 hrs Laboratory Tests Test 01/21/17 17:35 01/21/17 21:41 01/22/17 05:35 01/22/17 06:45 Bedside Glucose 77 82 172 White Blood Count 10.9 H Red Blood Count 4.22 Hemoglobin 11.9 L Hematocrit 38.5 Mean Corpuscular Volume 91.2 Mean Corpuscular Hemoglobin 28.2 L Mean Corpuscular Hemoglobin Concent 30.9 L Red Cell Distribution Width 14.9 H Platelet Count 351 Mean Platelet Volume 9.4 Neutrophils % 81.5 H Lymphocytes % 9.6 L Monocytes % 5.2 Eosinophils % 2.3 Basophils % 0.3 Nucleated Red Blood Cells % 0.0 Neutrophils # 8.9 H Lymphocytes # 1.1 Monocytes # 0.6 Eosinophils # 0.3 Basophils # 0.0 Nucleated Red Blood Cells # 0.0 Sodium Level 142 Potassium Level 4.3 Chloride Level 98 Carbon Dioxide Level 37 H Anion Gap 11 Blood Urea Nitrogen 36 H Creatinine 1.19 H Glucose Level 199 Calcium Level 9.5 Random Cortisol 2.0 Test 01/22/17 09:13 01/22/17 10:03 01/22/17 12:45 Bedside Glucose 221 H 220 Vancomycin Level Trough 13.6 Medications Medications Current Medications Ondansetron HCl (Zofran Inj) 4 mg Q6H PRN IV NAUSEA AND/OR VOMITING; Start at 02:00 Acetaminophen (Tylenol Supp) 650 mg Q4H PRN [place] PAIN LEVEL 1-3 OR FEVER; Start 01/19/17 at 02:00 Morphine Sulfate (morphine) 2 mg Q4H PRN IV PAIN LEVEL 7-10; Start 01/19/17 at 02:00 Lorazepam 0.5 mg 0.5 mg Q4H PRN IV ANXIETY; Start 01/19/17 at 02:00 Cefepime HCl 50 ml @ 100 mls/hr Q12 IVPB Last administered on 01/22/17 09:43 ; Admin Dose 100 MLS/HR; Start 01/19/17 at 09:00 Vancomycin HCl/ Sodium Chloride (Vancocin/NS) 250 ml @ 83.333 mls/ hr Q24H IVPB Last administered on 01/22/17 12:46; Admin Dose 83.333 MLS/HR; Start at 11:00 Miscellaneous Information 1 ea NOTE XX ; Start 01/19/17 at 06:30 Glucose (Glutose) 15 gm Q15M PRN PO DECREASED GLUCOSE; Start 01/19/17 at 06:30 Glucose (Glutose) 22.5 gm Q15M PRN PO DECREASED GLUCOSE; Start 01/19/17 at 06: 30 Dextrose (D50w Syringe) 25 ml Q15M PRN IV DECREASED GLUCOSE; Start 01/19/17 at 06:30 Dextrose (D50w Syringe) 50 ml Q15M PRN IV DECREASED GLUCOSE; Start 01/19/17 at 06:30 Glucagon (Glucagen) 1 mg Q15M PRN IM DECREASED GLUCOSE; Start 01/19/17 at 06: 30 Glucose (Glutose) 15 gm Q15M PRN BUCCAL DECREASED GLUCOSE; Start 01/19/17 at 06:30 Aspirin (Aspirin) 81 mg DAILY PO Last administered on 01/22/17 09:42; Admin Dose 81 MG; Start 01/19/17 at 09:00 Atorvastatin Calcium (Lipitor) 40 mg HS PO Last administered on 01/21/17 21: 31; Admin Dose 40 MG; Start 01/19/17 at 21:00 Clonazepam (Klonopin) 0.25 mg DAILY PRN PO ANXIETY; Start 01/19/17 at 06:30 Metoprolol Succinate (Toprol Xl) 50 mg DAILY PO Last administered on 09:43; Admin Dose 50 MG; Start 01/19/17 at 09:00 Paroxetine HCl (Paxil) 10 mg DAILY PO Last administered on 01/22/17 09:43; Admin Dose 10 MG; Start 01/19/17 at 09:00 Trazodone HCl (Desyrel) 50 mg QHS PO Last administered on 01/21/17 21:31; Admin Dose 50 MG; Start 01/19/17 at 21:00 Diagnostic Test (Pha) (Accu-Chek) 1 ea 02 XX Last administered on 01/20/17 02 :00; Admin Dose 1 EA; Start 01/20/17 at 02:00 Insulin Human NPH (Humulin N) 60 unit DAILY@22 SC Last administered on 21:52; Admin Dose 60 UNIT; Start 01/19/17 at 22:00 Linagliptin (Tradjenta) 5 mg DAILY PO Last administered on 01/22/17 09:43; Admin Dose 5 MG; Start 01/20/17 at 09:00 Empaglifozin (Jardiance) 10 mg DAILY@08 PO Last administered on 01/22/17 09: 42; Admin Dose 10 MG; Start 01/20/17 at 08:00 Mupirocin (Bactroban) 1 applic BID TOP Last administered on 01/22/17 09:42; Admin Dose 1 APPLIC; Start 01/20/17 at 11:00 Insulin Glargine (Lantus) 46 unit DAILY@08 SC Last administered on 01/22/17 09:41; Admin Dose 46 UNIT; Start 01/22/17 at 08:00 Magnesium Hydroxide (Milk Of Mag) 30 ml BID PRN PO CONSTIPATION Last administered on 01/21/17 11:58; Admin Dose 30 ML; Start 01/21/17 at 10:30 Bisacodyl (Dulcolax) 10 mg DAILY PRN PO CONSTIPATION Last administered on 01/22 09:41; Admin Dose 10 MG; Start 01/21/17 at 10:30 MADHU CAZARES Jan 22, 2017 16:47
--- NOTE | 2017-01-22 18:23 | CONS ---
Date/Time of Note Date/Time of Note DATE: 01/22/17 TIME: 18:19 Assessment/Plan Assessment/Plan Problems: (1) DM w/o complication type II, uncontrolled Status: Chronic Comment: Patient with good glycemic control on current massive doses of insulin. Mildly hyperglycemic this a.m. due to dexamethasone administered last night. This was a one-time dosage and not expect it to be repeated, therefore no need to change insulin doses. Therefore we will continue current insulin doses. With regard to the dexamethasone, this was done as part of a dexamethasone suppression test. Patient had a.m. cortisol of 2 mg. This is just slightly above the cutoff of 1.8 mg to rule out hypercortisolism. It would not surprise me if this patient had some hypercortisolism considering she is currently hospitalized for congestive heart failure. I do not believe this patient has Kassidy syndrome. This level of cortisol following 1 mg overnight dexamethasone might qualify her for mifepristone therapy which might help lower her blood glucose. However given her insurance constraints, I doubt that this would be a therapy available to her. I will continue current insulin doses and monitor daily Consultation Date/Type/Reason Admit Date/Time Jan 19, 2017 at 01:40 Initial Consult Date 01/19/17 Type of Consultation: Endocrinology Reason for Consultation Type 2 diabetes mellitus management Referring Provider: MADHU CAZARES 24 HR Interval Summary Constitutional: improved, no complaints, requiring O2 Detailed Summary Respiratory: no complaints Cardiovascular: no complaints Gastrointestinal: constipation (No BM 4 days) Genitourinary: no complaints Musculoskeletal: no complaints Neurologic: no complaints Exam/Review of Systems Vital Signs Vitals VS - Last 72 Hours, by Label Date Time Temp Pulse Resp B/P Pulse Ox O2 Delivery O2 Flow Rate FiO2 01/22/17 16:00 79 01/22/17 15:43 97.4 70 20 151/62 96 01/22/17 12:00 73 01/22/17 11:35 97.3 72 21 126/58 97 01/22/17 08:05 74 01/22/17 08:05 74 01/22/17 08:00 Nasal Cannula 2.0 01/22/17 07:56 98.8 74 20 122/55 95 01/22/17 04:34 98.6 67 24 142/67 97 01/22/17 04:00 66 01/22/17 03:00 75 98 30 01/22/17 01:00 70 97 30 01/22/17 00:00 69 01/21/17 23:33 98.6 71 21 141/60 96 01/21/17 23:26 2.0 01/21/17 23:20 65 98 30 01/21/17 21:35 Nasal Cannula 5.0 01/21/17 20:52 98.6 66 18 142/61 94 01/21/17 20:00 63 01/21/17 16:03 74 01/21/17 16:00 Nasal Cannula 5.0 01/21/17 15:54 98.4 74 20 119/66 97 01/21/17 13:00 Nasal Cannula 5.0 01/21/17 12:53 98.7 69 21 127/56 97 01/21/17 12:45 66 01/21/17 12:00 98.3 18 125/76 99 01/21/17 11:00 66 17 117/70 97 01/21/17 10:00 62 18 132/68 95 01/21/17 09:00 63 24 111/60 97 01/21/17 08:00 Nasal Cannula 5.0 01/21/17 08:00 65 01/21/17 08:00 98.2 69 11 77/63 98 01/21/17 07:55 5.0 01/21/17 07:00 67 19 133/61 96 BIPAP 01/21/17 05:10 61 98 30 01/21/17 05:00 61 18 125/51 97 BIPAP 01/21/17 04:00 70 01/21/17 04:00 98.5 71 11 115/45 98 BIPAP 01/21/17 03:10 78 98 30 01/21/17 03:00 79 23 130/54 91 BIPAP 01/21/17 02:00 65 17 112/42 96 BIPAP 01/21/17 01:10 75 100 30 01/21/17 01:00 64 18 124/44 99 BIPAP 01/21/17 00:00 69 01/21/17 00:00 99.0 69 16 107/44 97 BIPAP 01/20/17 23:10 66 97 30 01/20/17 23:00 70 18 113/41 99 BIPAP 01/20/17 22:00 5.0 01/20/17 22:00 64 21 119/53 97 Nasal Cannula 3.0 01/20/17 21:00 71 19 136/59 97 Nasal Cannula 3.0 01/20/17 20:00 Nasal Cannula 5.0 01/20/17 20:00 69 01/20/17 20:00 98.9 70 22 135/62 99 Nasal Cannula 5.0 01/20/17 19:00 69 17 125/64 99 Nasal Cannula 5.0 01/20/17 17:00 65 21 104/42 100 01/20/17 16:00 98.6 64 20 129/62 96 01/20/17 16:00 63 01/20/17 15:00 63 18 117/60 98 01/20/17 14:00 65 20 95/82 98 01/20/17 13:00 64 16 107/61 98 01/20/17 12:00 66 01/20/17 12:00 98.6 66 18 129/60 98 01/20/17 11:00 65 22 116/58 96 01/20/17 10:00 17 135/60 95 01/20/17 09:00 67 17 116/53 95 01/20/17 08:25 5.0 01/20/17 08:05 65 98 30 01/20/17 08:00 98.7 66 17 116/53 99 01/20/17 08:00 65 01/20/17 07:00 70 21 125/63 99 BIPAP 01/20/17 06:00 74 21 135/67 92 BIPAP 01/20/17 05:10 70 99 30 01/20/17 05:00 68 19 115/70 97 BIPAP 01/20/17 04:00 98.7 75 20 125/65 96 BIPAP 01/20/17 04:00 64 01/20/17 03:10 73 99 30 01/20/17 03:00 72 19 132/65 100 BIPAP 01/20/17 02:00 69 16 122/67 99 BIPAP 01/20/17 01:21 74 97 30 01/20/17 01:00 70 22 128/59 95 BIPAP 01/20/17 00:00 61 01/20/17 00:00 99.0 66 16 114/63 97 BIPAP 01/19/17 23:10 72 98 30 01/19/17 23:10 3.0 01/19/17 23:00 78 21 154/68 96 Nasal Cannula 3.0 01/19/17 22:00 70 23 132/65 95 Nasal Cannula 3.0 01/19/17 21:00 70 21 141/65 95 Nasal Cannula 3.0 01/19/17 20:00 Nasal Cannula 3.0 01/19/17 20:00 72 01/19/17 20:00 99.4 72 19 136/64 97 Nasal Cannula 3.0 01/19/17 19:00 74 20 144/75 96 Nasal Cannula 3.0 Vital Signs Date Time Temp Pulse Resp B/P Pulse Ox O2 Delivery O2 Flow Rate FiO2 01/22/17 16:00 79 01/22/17 15:43 97.4 20 151/62 96 01/22/17 08:00 Nasal Cannula 2.0 01/22/17 03:00 30 Intake and Output 01/21/17 01/21/17 01/22/17 15:00 23:00 07:00 Intake Total 600 ml 800 ml 700 ml Output Total 1050 ml 600 ml 1050 ml Balance -450 ml 200 ml -350 ml Exam Constitutional: alert, obese, oriented Psych: nl mood/affect, no complaints Respiratory: clear to auscultation, normal air movement Cardiovascular: nl pulses, regular rate and rhythm, No edema, No murmurs/extra sounds, No rub Gastrointestinal: bowel sounds, nl liver, spleen, non-tender, soft, No mass, No rebound or guarding Musculoskeletal: nl extremities to inspection Extremities: normal pulses, No clubbing, No cyanosis, No edema Neurological: [employer]GER II-XII intact, nl mental status, nl speech, nl strength Additional Comments Bedside Glucose - 72 Hours Test 01/19/17 21:25 01/20/17 03:07 01/20/17 08:17 01/20/17 10:45 Bedside Glucose 243mg/dL (70-220) H 135mg/dL (70-220) 149mg/dL (70-220) 146mg/dL (70-220) Test 01/20/17 16:50 01/20/17 21:23 01/21/17 07:52 01/21/17 11:17 Bedside Glucose 74mg/dL (70-220) 87mg/dL (70-220) 109mg/dL (70-220) 147mg/dL (70-220) Test 01/21/17 12:55 01/21/17 17:35 01/21/17 21:41 01/22/17 05:35 Bedside Glucose 88mg/dL (70-220) 77mg/dL (70-220) 82mg/dL (70-220) 172mg/dL (70-220) Test 01/22/17 09:13 01/22/17 12:45 01/22/17 17:46 Bedside Glucose 221mg/dL (70-220) H 220mg/dL (70-220) 103mg/dL (70-220) Results Result Diagram: 01/22/17 0645 01/22/17 0645 Results 24 hrs Laboratory Tests Test 01/21/17 21:41 01/22/17 05:35 01/22/17 06:45 01/22/17 09:13 Bedside Glucose 82 172 221 H White Blood Count 10.9 H Red Blood Count 4.22 Hemoglobin 11.9 L Hematocrit 38.5 Mean Corpuscular Volume 91.2 Mean Corpuscular Hemoglobin 28.2 L Mean Corpuscular Hemoglobin Concent 30.9 L Red Cell Distribution Width 14.9 H Platelet Count 351 Mean Platelet Volume 9.4 Neutrophils % 81.5 H Lymphocytes % 9.6 L Monocytes % 5.2 Eosinophils % 2.3 Basophils % 0.3 Nucleated Red Blood Cells % 0.0 Neutrophils # 8.9 H Lymphocytes # 1.1 Monocytes # 0.6 Eosinophils # 0.3 Basophils # 0.0 Nucleated Red Blood Cells # 0.0 Sodium Level 142 Potassium Level 4.3 Chloride Level 98 Carbon Dioxide Level 37 H Anion Gap 11 Blood Urea Nitrogen 36 H Creatinine 1.19 H Glucose Level 199 Calcium Level 9.5 Random Cortisol 2.0 Test 01/22/17 10:03 01/22/17 12:45 01/22/17 17:46 Vancomycin Level Trough 13.6 Bedside Glucose 220 103 Medications Medications Current Medications Ondansetron HCl (Zofran Inj) 4 mg Q6H PRN IV NAUSEA AND/OR VOMITING; Start at 02:00 Acetaminophen (Tylenol Supp) 650 mg Q4H PRN [place] PAIN LEVEL 1-3 OR FEVER; Start 01/19/17 at 02:00 Morphine Sulfate (morphine) 2 mg Q4H PRN IV PAIN LEVEL 7-10; Start 01/19/17 at 02:00 Lorazepam 0.5 mg 0.5 mg Q4H PRN IV ANXIETY; Start 01/19/17 at 02:00 Cefepime HCl 50 ml @ 100 mls/hr Q12 IVPB Last administered on 01/22/17 09:43 ; Admin Dose 100 MLS/HR; Start 01/19/17 at 09:00 Vancomycin HCl/ Sodium Chloride (Vancocin/NS) 250 ml @ 83.333 mls/ hr Q24H IVPB Last administered on 01/22/17 12:46; Admin Dose 83.333 MLS/HR; Start at 11:00 Miscellaneous Information 1 ea NOTE XX ; Start 01/19/17 at 06:30 Glucose (Glutose) 15 gm Q15M PRN PO DECREASED GLUCOSE; Start 01/19/17 at 06:30 Glucose (Glutose) 22.5 gm Q15M PRN PO DECREASED GLUCOSE; Start 01/19/17 at 06: 30 Dextrose (D50w Syringe) 25 ml Q15M PRN IV DECREASED GLUCOSE; Start 01/19/17 at 06:30 Dextrose (D50w Syringe) 50 ml Q15M PRN IV DECREASED GLUCOSE; Start 01/19/17 at 06:30 Glucagon (Glucagen) 1 mg Q15M PRN IM DECREASED GLUCOSE; Start 01/19/17 at 06: 30 Glucose (Glutose) 15 gm Q15M PRN BUCCAL DECREASED GLUCOSE; Start 01/19/17 at 06:30 Aspirin (Aspirin) 81 mg DAILY PO Last administered on 01/22/17 09:42; Admin Dose 81 MG; Start 01/19/17 at 09:00 Atorvastatin Calcium (Lipitor) 40 mg HS PO Last administered on 01/21/17 21: 31; Admin Dose 40 MG; Start 01/19/17 at 21:00 Clonazepam (Klonopin) 0.25 mg DAILY PRN PO ANXIETY; Start 01/19/17 at 06:30 Metoprolol Succinate (Toprol Xl) 50 mg DAILY PO Last administered on 09:43; Admin Dose 50 MG; Start 01/19/17 at 09:00 Paroxetine HCl (Paxil) 10 mg DAILY PO Last administered on 01/22/17 09:43; Admin Dose 10 MG; Start 01/19/17 at 09:00 Trazodone HCl (Desyrel) 50 mg QHS PO Last administered on 01/21/17 21:31; Admin Dose 50 MG; Start 01/19/17 at 21:00 Diagnostic Test (Pha) (Accu-Chek) 1 ea 02 XX Last administered on 01/20/17 02 :00; Admin Dose 1 EA; Start 01/20/17 at 02:00 Insulin Human NPH (Humulin N) 60 unit DAILY@22 SC Last administered on 21:52; Admin Dose 60 UNIT; Start 01/19/17 at 22:00 Linagliptin (Tradjenta) 5 mg DAILY PO Last administered on 01/22/17 09:43; Admin Dose 5 MG; Start 01/20/17 at 09:00 Empaglifozin (Jardiance) 10 mg DAILY@08 PO Last administered on 01/22/17 09: 42; Admin Dose 10 MG; Start 01/20/17 at 08:00 Mupirocin (Bactroban) 1 applic BID TOP Last administered on 01/22/17 09:42; Admin Dose 1 APPLIC; Start 01/20/17 at 11:00 Insulin Glargine (Lantus) 46 unit DAILY@08 SC Last administered on 01/22/17 09:41; Admin Dose 46 UNIT; Start 01/22/17 at 08:00 Magnesium Hydroxide (Milk Of Mag) 30 ml BID PRN PO CONSTIPATION Last administered on 01/21/17 11:58; Admin Dose 30 ML; Start 01/21/17 at 10:30 Bisacodyl (Dulcolax) 10 mg DAILY PRN PO CONSTIPATION Last administered on 01/22 09:41; Admin Dose 10 MG; Start 01/21/17 at 10:30 TONY KELLY MD Jan 22, 2017 18:23
[2017-01-22] MEDS ORDERED: BISACODYL (EC) 5 MG TAB PO ONE (18:30)
[2017-01-22] MEDS ORDERED: BISACODYL (EC) 5 MG TAB PO PRN (22:00)
[2017-01-22] MEDS: SENNA/DOCUSATE NA (8.6MG/50MG) TAB PO SCH (22:02)
[2017-01-22] MEDS: traZODone 50 MG TAB PO SCH (22:02)
[2017-01-22] MEDS: ATORVASTATIN 40 MG TAB PO SCH (22:02)
[2017-01-22] MEDS: NPH, HUMAN INSULIN ISOPHANE 3ML VIAL SC SCH (22:54)
[2017-01-23] VITALS (16 sets, daily range): BP systolic 126–153; BP diastolic 52–67; PULSE 59–68; RESP 19–21
[2017-01-23] MEDS: ACCU-CHEK XX SCH (02:00)
[2017-01-23] MEDS: FUROSEMIDE 40 MG INJ IV SCH ×2 (06:08→17:28)
[2017-01-23] MEDS: INSULIN ASPART [NOVOLOG] 3 ML PEN SC SCH ×7 (07:30→21:00)
--- NOTE | 2017-01-23 07:52 | RADRPT ---
PROCEDURE: XR Chest. CLINICAL INDICATION: Pneumonia TECHNIQUE: Single AP portable chest. COMPARISON: 03/27/2016 Chest x-ray FINDINGS: Mild prominence of the cardiac silhouette at the upper limits of normal in size. Atherosclerotic ca lcification of the aorta. The lungs are clear without pleural effusion or focal consolidation. No p neumothorax. The osseous structures and soft tissues are unremarkable. IMPRESSION: 1. No evidence for active cardiopulmonary disease. RPTAT:AAJJ Balta Serna Physician Date Time Electronically viewed and signed by Physician Keven on 01/23/2017 07:52 MARY/
[2017-01-23] MEDS: PAROXETINE 10 MG TAB PO SCH (08:07)
[2017-01-23] MEDS: ASPIRIN 81 MG TAB PO SCH (08:07)
[2017-01-23] MEDS: SENNA/DOCUSATE NA (8.6MG/50MG) TAB PO SCH ×2 (08:07→20:22)
[2017-01-23] MEDS: LINAGLIPTIN 5 MG TABLET PO SCH (08:07)
[2017-01-23] MEDS: MUPIROCIN 2% 22 GM OINT TOP SCH ×2 (08:08→20:22)
[2017-01-23] MEDS: METOPROLOL (XL) 50 MG TAB PO SCH (08:08)
[2017-01-23] MEDS: EMPAGLIFLOZIN 10 MG TABLET PO SCH (08:08)
[2017-01-23] MEDS: CEFEPIME 1GM/50 ML (PMX) 50 ML IVPB SCH (08:08)
[2017-01-23] MEDS: INSULIN GLARGINE [LANtus] 3 ML PEN SC SCH (08:11)
[2017-01-23] MEDS: VANCOMYCIN 1.5 GM in SOD CHLORIDE 0.9% 250 ML IVPB SCH (11:07)
--- NOTE | 2017-01-23 11:40 | CONS ---
Date/Time of Note Date/Time of Note DATE: 01/23/17 TIME: 11:39 Assessment/Plan Assessment/Plan Additional Assessment/Plan Assessment recommendations; 1. Patient admitted with CHF exacerbation with marked overall clinical improvement with markedly improved hypoxemia. 2. Underlying obesity with possibility of sleep apnea. 3. History of chronic mild renal insufficiency. 4. History of diabetes and hypertension. Continue current treatment. Consider discharge. Consultation Date/Type/Reason Admit Date/Time Jan 19, 2017 at 01:40 Type of Consultation: Pulmonary/critical care Reason for Consultation Patient's condition is stable. Denies any shortness breath, wheezing, chest pain. General exam; elderly woman, awake alert, currently in no distress. Referring Provider: MADHU CAZARES Exam/Review of Systems Vital Signs Vitals Vital Signs Date Time Temp Pulse Resp B/P Pulse Ox O2 Delivery O2 Flow Rate FiO2 01/23/17 11:25 98.1 61 19 126/67 95 01/23/17 08:30 Nasal Cannula 2.0 01/23/17 03:01 30 Intake and Output 01/22/17 01/22/17 01/23/17 15:00 23:00 07:00 Intake Total 1200 ml 500 ml Output Total 2100 ml 1300 ml Balance -900 ml -800 ml Exam HEENT exam; supple neck, no JVD. No lymphadenopathy. Midline trachea. No thyromegaly. Patient is edentulous. Chest exam; clear to auscultation. S1-S2 audible, no murmurs. Regular rhythm. Abdomen exam; soft, protuberant. Nontender. No organomegaly. Bowel sounds audible. Extremity exam; no peripheral edema. 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 Results Result Diagram: 01/23/17 0639 01/23/17 0639 Results 24 hrs Laboratory Tests Test 01/22/17 12:45 01/22/17 17:46 01/22/17 21:53 01/23/17 02:26 Bedside Glucose 220 103 100 118 Test 01/23/17 06:39 01/23/17 07:52 White Blood Count 9.4 Red Blood Count 4.26 Hemoglobin 11.5 L Hematocrit 39.1 Mean Corpuscular Volume 91.8 Mean Corpuscular Hemoglobin 27.0 L Mean Corpuscular Hemoglobin Concent 29.4 L Red Cell Distribution Width 15.1 H Platelet Count 345 Mean Platelet Volume 9.5 Neutrophils % 68.0 Lymphocytes % 20.1 Monocytes % 6.8 Eosinophils % 3.9 Basophils % 0.3 Nucleated Red Blood Cells % 0.0 Neutrophils # 6.4 Lymphocytes # 1.9 Monocytes # 0.6 Eosinophils # 0.4 Basophils # 0.0 Nucleated Red Blood Cells # 0.0 Sodium Level 143 Potassium Level 3.7 Chloride Level 93 L Carbon Dioxide Level 42 *H Anion Gap 12 Blood Urea Nitrogen 44 H Creatinine 1.35 H Glucose Level 127 # Calcium Level 9.5 Bedside Glucose 127 Medications Medications Current Medications Ondansetron HCl (Zofran Inj) 4 mg Q6H PRN IV NAUSEA AND/OR VOMITING; Start at 02:00 Acetaminophen (Tylenol Supp) 650 mg Q4H PRN [place] PAIN LEVEL 1-3 OR FEVER; Start 01/19/17 at 02:00 Morphine Sulfate (morphine) 2 mg Q4H PRN IV PAIN LEVEL 7-10; Start 01/19/17 at 02:00 Lorazepam 0.5 mg 0.5 mg Q4H PRN IV ANXIETY; Start 01/19/17 at 02:00 Cefepime HCl 50 ml @ 100 mls/hr Q12 IVPB Last administered on 01/23/17 08:08 ; Admin Dose 100 MLS/HR; Start 01/19/17 at 09:00 Vancomycin HCl/ Sodium Chloride (Vancocin/NS) 250 ml @ 83.333 mls/ hr Q24H IVPB Last administered on 01/23/17 11:07; Admin Dose 83.333 MLS/HR; Start at 11:00 Miscellaneous Information 1 ea NOTE XX ; Start 01/19/17 at 06:30 Glucose (Glutose) 15 gm Q15M PRN PO DECREASED GLUCOSE; Start 01/19/17 at 06:30 Glucose (Glutose) 22.5 gm Q15M PRN PO DECREASED GLUCOSE; Start 01/19/17 at 06: 30 Dextrose (D50w Syringe) 25 ml Q15M PRN IV DECREASED GLUCOSE; Start 01/19/17 at 06:30 Dextrose (D50w Syringe) 50 ml Q15M PRN IV DECREASED GLUCOSE; Start 01/19/17 at 06:30 Glucagon (Glucagen) 1 mg Q15M PRN IM DECREASED GLUCOSE; Start 01/19/17 at 06: 30 Glucose (Glutose) 15 gm Q15M PRN BUCCAL DECREASED GLUCOSE; Start 01/19/17 at 06:30 Aspirin (Aspirin) 81 mg DAILY PO Last administered on 01/23/17 08:07; Admin Dose 81 MG; Start 01/19/17 at 09:00 Atorvastatin Calcium (Lipitor) 40 mg HS PO Last administered on 01/22/17 22: 02; Admin Dose 40 MG; Start 01/19/17 at 21:00 Clonazepam (Klonopin) 0.25 mg DAILY PRN PO ANXIETY; Start 01/19/17 at 06:30 Metoprolol Succinate (Toprol Xl) 50 mg DAILY PO Last administered on 08:08; Admin Dose 50 MG; Start 01/19/17 at 09:00 Paroxetine HCl (Paxil) 10 mg DAILY PO Last administered on 01/23/17 08:07; Admin Dose 10 MG; Start 01/19/17 at 09:00 Trazodone HCl (Desyrel) 50 mg QHS PO Last administered on 01/22/17 22:02; Admin Dose 50 MG; Start 01/19/17 at 21:00 Diagnostic Test (Pha) (Accu-Chek) 1 ea 02 XX Last administered on 01/23/17 02 :00; Admin Dose 1 EA; Start 01/20/17 at 02:00 Insulin Human NPH (Humulin N) 60 unit DAILY@22 SC Last administered on 22:54; Admin Dose 60 UNIT; Start 01/19/17 at 22:00 Linagliptin (Tradjenta) 5 mg DAILY PO Last administered on 01/23/17 08:07; Admin Dose 5 MG; Start 01/20/17 at 09:00 Empaglifozin (Jardiance) 10 mg DAILY@08 PO Last administered on 01/23/17 08: 08; Admin Dose 10 MG; Start 01/20/17 at 08:00 Mupirocin (Bactroban) 1 applic BID TOP Last administered on 01/23/17 08:08; Admin Dose 1 APPLIC; Start 01/20/17 at 11:00 Insulin Glargine (Lantus) 46 unit DAILY@08 SC Last administered on 01/23/17 08:11; Admin Dose 46 UNIT; Start 01/22/17 at 08:00 Magnesium Hydroxide (Milk Of Mag) 30 ml BID PRN PO CONSTIPATION Last administered on 01/21/17 11:58; Admin Dose 30 ML; Start 01/21/17 at 10:30 Bisacodyl (Dulcolax) 10 mg DAILY PRN PO CONSTIPATION Last administered on 01/22 09:41; Admin Dose 10 MG; Start 01/21/17 at 10:30 Senna/Docusate Sodium (Senokot-S) 2 tab BID PO Last administered on 01/23/17 08:07; Admin Dose 2 TAB; Start 01/22/17 at 21:00 Bisacodyl (Dulcolax) 10 mg DAILY PRN PO CONSTIPATION; Start 01/22/17 at 22:00 MIGUEL RIVERA Jan 23, 2017 11:40
[2017-01-23] MEDS: BISACODYL (EC) 5 MG TAB PO PRN (12:10)
[2017-01-23] MEDS ORDERED: NA PHOSPHATE/BIPHOS 133 ML ENEMA PR PRN (15:30)
[2017-01-23] MEDS: BISACODYL 10 MG SUPP PR PRN (15:32)
--- NOTE | 2017-01-23 16:23 | PN ---
Date/Time of Note Date/Time of Note DATE: 01/23/17 TIME: 16:22 Assessment/Plan VTE Prophylaxis VTE Prophylaxis Intervention: SCD's Lines/Catheters IV Catheter Type (from Nrs): Peripheral IV Urinary Cath still in place: Yes Reason Cath still needed: urinary retention Assessment/Plan Chief Complaint/Hosp Course Pt complains of constipation not relieved with p.o. medication, start bisacodyl suppository and followed by Fleet enema if bisacodyl is not effective. Patient denies any chest pain denies any shortness of breath while at rest. Assessment/Plan - ARF 2 to pulm edema, resolving. Dr. Bravo is following in pulmonology consultation. - Diastolic acute on chronic congestive heart failure exacerbation. Continue Lasix. Dr. Cota is following in cardiology consultation. Continue to monitor electrolytes. - Positive troponin. - Hypertension. - Diabetes mellitus type 2 with hemoglobin A1c 9.2. Continue Lantus and pre- meal NovoLog as well as NovoLog per mild algorithm sliding scale. Dr. Bartholomew is following in endocrinology consultation. - Acute on chronic kidney disease. Continue to monitor BUN and creatinine. - Possible sleep apnea, continue BiPAP per pulmonology. - Hyperlipidemia. Continue statin. - Morbid obesity Further recommendations based on clinical course. Plan of care discussed with Dr. Garza. Problems: Exam/Review of Systems Vital Signs Vitals Vital Signs Date Time Temp Pulse Resp B/P Pulse Ox O2 Delivery O2 Flow Rate FiO2 01/23/17 16:10 68 01/23/17 15:45 98.3 19 148/52 96 01/23/17 08:30 Nasal Cannula 2.0 01/23/17 03:01 30 Intake and Output 01/22/17 01/22/17 01/23/17 15:00 23:00 07:00 Intake Total 1200 ml 500 ml Output Total 2100 ml 1300 ml Balance -900 ml -800 ml Exam Constitutional: alert, oriented Head: normocephalic Neck: supple Respiratory: diminished breath sounds Cardiovascular: nl pulses, regular rate and rhythm Gastrointestinal: non-tender, soft Extremities: normal pulses Neurological: nl mental status Results Result Diagram: 01/23/17 0639 01/23/17 0639 Results 24 hrs Laboratory Tests Test 01/22/17 17:46 01/22/17 21:53 01/23/17 02:26 01/23/17 06:39 Bedside Glucose 103 100 118 White Blood Count 9.4 Red Blood Count 4.26 Hemoglobin 11.5 L Hematocrit 39.1 Mean Corpuscular Volume 91.8 Mean Corpuscular Hemoglobin 27.0 L Mean Corpuscular Hemoglobin Concent 29.4 L Red Cell Distribution Width 15.1 H Platelet Count 345 Mean Platelet Volume 9.5 Neutrophils % 68.0 Lymphocytes % 20.1 Monocytes % 6.8 Eosinophils % 3.9 Basophils % 0.3 Nucleated Red Blood Cells % 0.0 Neutrophils # 6.4 Lymphocytes # 1.9 Monocytes # 0.6 Eosinophils # 0.4 Basophils # 0.0 Nucleated Red Blood Cells # 0.0 Sodium Level 143 Potassium Level 3.7 Chloride Level 93 L Carbon Dioxide Level 42 *H Anion Gap 12 Blood Urea Nitrogen 44 H Creatinine 1.35 H Glucose Level 127 # Calcium Level 9.5 Test 01/23/17 07:52 01/23/17 11:59 01/23/17 12:52 Bedside Glucose 127 73 73 Medications Medications Current Medications Ondansetron HCl (Zofran Inj) 4 mg Q6H PRN IV NAUSEA AND/OR VOMITING Last administered on 01/23/17t 13:33; Admin Dose 4 MG; Start 01/19/17 at 02:00 Acetaminophen (Tylenol Supp) 650 mg Q4H PRN [place] PAIN LEVEL 1-3 OR FEVER; Start 01/19/17 at 02:00 Morphine Sulfate (morphine) 2 mg Q4H PRN IV PAIN LEVEL 7-10; Start 01/19/17 at 02:00 Lorazepam (Ativan) 0.5 mg Q4H PRN IV ANXIETY; Start 01/19/17 at 02:00 Miscellaneous Information 1 ea NOTE XX ; Start 01/19/17 at 06:30 Glucose (Glutose) 15 gm Q15M PRN PO DECREASED GLUCOSE; Start 01/19/17 at 06:30 Glucose (Glutose) 22.5 gm Q15M PRN PO DECREASED GLUCOSE; Start 01/19/17 at 06: 30 Dextrose (D50w Syringe) 25 ml Q15M PRN IV DECREASED GLUCOSE; Start 01/19/17 at 06:30 Dextrose (D50w Syringe) 50 ml Q15M PRN IV DECREASED GLUCOSE; Start 01/19/17 at 06:30 Glucagon (Glucagen) 1 mg Q15M PRN IM DECREASED GLUCOSE; Start 01/19/17 at 06: 30 Glucose (Glutose) 15 gm Q15M PRN BUCCAL DECREASED GLUCOSE; Start 01/19/17 at 06:30 Aspirin (Aspirin) 81 mg DAILY PO Last administered on 01/23/17 08:07; Admin Dose 81 MG; Start 01/19/17 at 09:00 Atorvastatin Calcium (Lipitor) 40 mg HS PO Last administered on 01/22/17 22: 02; Admin Dose 40 MG; Start 01/19/17 at 21:00 Clonazepam (Klonopin) 0.25 mg DAILY PRN PO ANXIETY; Start 01/19/17 at 06:30 Metoprolol Succinate (Toprol Xl) 50 mg DAILY PO Last administered on 08:08; Admin Dose 50 MG; Start 01/19/17 at 09:00 Paroxetine HCl (Paxil) 10 mg DAILY PO Last administered on 01/23/17 08:07; Admin Dose 10 MG; Start 01/19/17 at 09:00 Trazodone HCl (Desyrel) 50 mg QHS PO Last administered on 01/22/17 22:02; Admin Dose 50 MG; Start 01/19/17 at 21:00 Diagnostic Test (Pha) (Accu-Chek) 1 ea 02 XX Last administered on 01/23/17 02 :00; Admin Dose 1 EA; Start 01/20/17 at 02:00 Insulin Human NPH (Humulin N) 60 unit DAILY@22 SC Last administered on 22:54; Admin Dose 60 UNIT; Start 01/19/17 at 22:00 Linagliptin (Tradjenta) 5 mg DAILY PO Last administered on 01/23/17 08:07; Admin Dose 5 MG; Start 01/20/17 at 09:00 Empaglifozin (Jardiance) 10 mg DAILY@08 PO Last administered on 01/23/17 08: 08; Admin Dose 10 MG; Start 01/20/17 at 08:00 Mupirocin (Bactroban) 1 applic BID TOP Last administered on 01/23/17 08:08; Admin Dose 1 APPLIC; Start 01/20/17 at 11:00 Insulin Glargine (Lantus) 46 unit DAILY@08 SC Last administered on 01/23/17 08:11; Admin Dose 46 UNIT; Start 01/22/17 at 08:00 Magnesium Hydroxide (Milk Of Mag) 30 ml BID PRN PO CONSTIPATION Last administered on 01/21/17 11:58; Admin Dose 30 ML; Start 01/21/17 at 10:30 Bisacodyl (Dulcolax) 10 mg DAILY PRN PO CONSTIPATION Last administered on 01/23 12:10; Admin Dose 10 MG; Start 01/21/17 at 10:30 Senna/Docusate Sodium (Senokot-S) 2 tab BID PO Last administered on 01/23/17 08:07; Admin Dose 2 TAB; Start 01/22/17 at 21:00 Bisacodyl (Dulcolax) 10 mg DAILY PRN PO CONSTIPATION; Start 01/22/17 at 22:00 Bisacodyl (Dulcolax Supp) 10 mg DAILY PRN [place] CONSTIPATION Last administered on 01/23/17 15:32; Admin Dose 10 MG; Start 01/23/17 at 15:30 Sodium Biphosphate/ Sodium Phosphate (Fleet Enema) 133 ml DAILY PRN [place] CONSTIPATION; Start 01/23/17 at 15:30 MADHU CAZARES Jan 23, 2017 16:23
--- NOTE | 2017-01-23 16:59 | CONS ---
Date/Time of Note Date/Time of Note DATE: 01/23/17 TIME: 16:58 Assessment/Plan Assessment/Plan Additional Assessment/Plan 1. Congestive heart failure exacerbation, diastolic, acute on chronic.- better now, con't to adjust diuresis 2. Abnormal electrocardiogram, assess for acute coronary syndrome- no CP now. 3. Hypertension- well rx 4. Dyslipidemia. 5. Diabetes mellitus- on meds, keep euglycemic 6. Renal failure - chronic, con't to follow. 7. Fevers. 8. Obstructive sleep apnea. 9. Obesity. 10. Positive troponin-likely demand type 2 in setting in renal failure and resp distress Consultation Date/Type/Reason Admit Date/Time Jan 19, 2017 at 01:40 Initial Consult Date 01/19/17 Type of Consultation: Pulmonary/critical care Referring Provider: MADHU CAZARES 24 HR Interval Summary Free Text/Dictation NO acute events - BP in good range - no CP now ROS: No fever, no chills, no nausea, no vomiting, no diarrhea/constipation No recent weight changes No chest pain, no PND, no orthopnea - improved SOB No dizziness, blurred vision No thirst, no heat or cold intolerance Exam/Review of Systems Vital Signs Vitals Vital Signs Date Time Temp Pulse Resp B/P Pulse Ox O2 Delivery O2 Flow Rate FiO2 01/23/17 16:10 68 01/23/17 15:45 98.3 19 148/52 96 01/23/17 08:30 Nasal Cannula 2.0 01/23/17 03:01 30 Intake and Output 01/22/17 01/22/17 01/23/17 15:00 23:00 07:00 Intake Total 1200 ml 500 ml Output Total 2100 ml 1300 ml Balance -900 ml -800 ml Exam General: WN/WD/NAD, AOx 2-3 HEENT: Unicetric/atraumatic/EOMI (follows commands) NECK: JVD elevated, no thyromegaly Lymph: no lymphadenopathy HEART: regular with no S3, II/ systolic murmur at apex LUNGS: Coarse sounds ABD: soft, NT, ND, +BS : Intact Neuro: non focal SKIN: chronic changes EXT: trace edema Results Result Diagram: 01/23/17 0639 01/23/17 0639 Results 24 hrs Laboratory Tests Test 01/22/17 17:46 01/22/17 21:53 01/23/17 02:26 01/23/17 06:39 Bedside Glucose 103 100 118 White Blood Count 9.4 Red Blood Count 4.26 Hemoglobin 11.5 L Hematocrit 39.1 Mean Corpuscular Volume 91.8 Mean Corpuscular Hemoglobin 27.0 L Mean Corpuscular Hemoglobin Concent 29.4 L Red Cell Distribution Width 15.1 H Platelet Count 345 Mean Platelet Volume 9.5 Neutrophils % 68.0 Lymphocytes % 20.1 Monocytes % 6.8 Eosinophils % 3.9 Basophils % 0.3 Nucleated Red Blood Cells % 0.0 Neutrophils # 6.4 Lymphocytes # 1.9 Monocytes # 0.6 Eosinophils # 0.4 Basophils # 0.0 Nucleated Red Blood Cells # 0.0 Sodium Level 143 Potassium Level 3.7 Chloride Level 93 L Carbon Dioxide Level 42 *H Anion Gap 12 Blood Urea Nitrogen 44 H Creatinine 1.35 H Glucose Level 127 # Calcium Level 9.5 Test 01/23/17 07:52 01/23/17 11:59 01/23/17 12:52 Bedside Glucose 127 73 73 Medications Medications Current Medications Ondansetron HCl (Zofran Inj) 4 mg Q6H PRN IV NAUSEA AND/OR VOMITING Last administered on 01/23/17t 13:33; Admin Dose 4 MG; Start 01/19/17 at 02:00 Acetaminophen (Tylenol Supp) 650 mg Q4H PRN [place] PAIN LEVEL 1-3 OR FEVER; Start 01/19/17 at 02:00 Morphine Sulfate (morphine) 2 mg Q4H PRN IV PAIN LEVEL 7-10; Start 01/19/17 at 02:00 Lorazepam (Ativan) 0.5 mg Q4H PRN IV ANXIETY; Start 01/19/17 at 02:00 Miscellaneous Information 1 ea NOTE XX ; Start 01/19/17 at 06:30 Glucose (Glutose) 15 gm Q15M PRN PO DECREASED GLUCOSE; Start 01/19/17 at 06:30 Glucose (Glutose) 22.5 gm Q15M PRN PO DECREASED GLUCOSE; Start 01/19/17 at 06: 30 Dextrose (D50w Syringe) 25 ml Q15M PRN IV DECREASED GLUCOSE; Start 01/19/17 at 06:30 Dextrose (D50w Syringe) 50 ml Q15M PRN IV DECREASED GLUCOSE; Start 01/19/17 at 06:30 Glucagon (Glucagen) 1 mg Q15M PRN IM DECREASED GLUCOSE; Start 01/19/17 at 06: 30 Glucose (Glutose) 15 gm Q15M PRN BUCCAL DECREASED GLUCOSE; Start 01/19/17 at 06:30 Aspirin (Aspirin) 81 mg DAILY PO Last administered on 01/23/17 08:07; Admin Dose 81 MG; Start 01/19/17 at 09:00 Atorvastatin Calcium (Lipitor) 40 mg HS PO Last administered on 01/22/17 22: 02; Admin Dose 40 MG; Start 01/19/17 at 21:00 Clonazepam (Klonopin) 0.25 mg DAILY PRN PO ANXIETY; Start 01/19/17 at 06:30 Metoprolol Succinate (Toprol Xl) 50 mg DAILY PO Last administered on 08:08; Admin Dose 50 MG; Start 01/19/17 at 09:00 Paroxetine HCl (Paxil) 10 mg DAILY PO Last administered on 01/23/17 08:07; Admin Dose 10 MG; Start 01/19/17 at 09:00 Trazodone HCl (Desyrel) 50 mg QHS PO Last administered on 01/22/17 22:02; Admin Dose 50 MG; Start 01/19/17 at 21:00 Diagnostic Test (Pha) (Accu-Chek) 1 ea 02 XX Last administered on 01/23/17 02 :00; Admin Dose 1 EA; Start 01/20/17 at 02:00 Insulin Human NPH (Humulin N) 60 unit DAILY@22 SC Last administered on 22:54; Admin Dose 60 UNIT; Start 01/19/17 at 22:00 Linagliptin (Tradjenta) 5 mg DAILY PO Last administered on 01/23/17 08:07; Admin Dose 5 MG; Start 01/20/17 at 09:00 Empaglifozin (Jardiance) 10 mg DAILY@08 PO Last administered on 01/23/17 08: 08; Admin Dose 10 MG; Start 01/20/17 at 08:00 Mupirocin (Bactroban) 1 applic BID TOP Last administered on 01/23/17 08:08; Admin Dose 1 APPLIC; Start 01/20/17 at 11:00 Insulin Glargine (Lantus) 46 unit DAILY@08 SC Last administered on 01/23/17 08:11; Admin Dose 46 UNIT; Start 01/22/17 at 08:00 Magnesium Hydroxide (Milk Of Mag) 30 ml BID PRN PO CONSTIPATION Last administered on 01/21/17 11:58; Admin Dose 30 ML; Start 01/21/17 at 10:30 Bisacodyl (Dulcolax) 10 mg DAILY PRN PO CONSTIPATION Last administered on 01/23 12:10; Admin Dose 10 MG; Start 01/21/17 at 10:30 Senna/Docusate Sodium (Senokot-S) 2 tab BID PO Last administered on 01/23/17 08:07; Admin Dose 2 TAB; Start 01/22/17 at 21:00 Bisacodyl (Dulcolax) 10 mg DAILY PRN PO CONSTIPATION; Start 01/22/17 at 22:00 Bisacodyl (Dulcolax Supp) 10 mg DAILY PRN [place] CONSTIPATION Last administered on 01/23/17 15:32; Admin Dose 10 MG; Start 01/23/17 at 15:30 Sodium Biphosphate/ Sodium Phosphate (Fleet Enema) 133 ml DAILY PRN [place] CONSTIPATION; Start 01/23/17 at 15:30 WERNER FALCON MD Jan 23, 2017 16:59
--- NOTE | 2017-01-23 17:00 | CONS ---
Date/Time of Note Date/Time of Note DATE: 01/23/17 TIME: 16:58 Assessment/Plan Assessment/Plan Problems: (1) DM w/o complication type II, uncontrolled Status: Chronic Comment: Patient remains euglycemic. Below goal today before lunch. Patient now with limited appetite. NovoLog held for lunch today. Will reduce breakfast NovoLog slightly from 40 to 38 units before breakfast. Of course insulin to be held when patient unable to eat. Will defer management of patient 's gastrointestinal symptoms to the primary team. Consultation Date/Type/Reason Admit Date/Time Jan 19, 2017 at 01:40 Initial Consult Date 01/19/17 Type of Consultation: Endocrinology Reason for Consultation Type 2 diabetes mellitus management Referring Provider: MADHU CAZARES 24 HR Interval Summary Constitutional: no complaints, requiring O2 Detailed Summary Respiratory: no complaints, No shortness of breath Cardiovascular: no complaints Gastrointestinal: constipation (Did have bowel movement this afternoon), decreased appetite, nausea, pain, vomiting Genitourinary: no complaints Musculoskeletal: no complaints Neurologic: no complaints Exam/Review of Systems Vital Signs Vitals VS - Last 72 Hours, by Label Date Time Temp Pulse Resp B/P Pulse Ox O2 Delivery O2 Flow Rate FiO2 01/23/17 16:10 68 01/23/17 15:45 98.3 79 19 148/52 96 01/23/17 12:00 59 01/23/17 11:25 98.1 61 19 126/67 95 01/23/17 09:27 60 01/23/17 08:30 Nasal Cannula 2.0 01/23/17 07:58 98.1 62 19 136/63 98 01/23/17 07:36 2.0 01/23/17 05:44 2.0 01/23/17 04:41 98.8 56 20 134/61 98 01/23/17 04:00 60 01/23/17 03:01 65 96 30 01/23/17 01:20 67 96 30 01/23/17 00:19 98.8 60 20 153/64 98 01/23/17 00:02 61 01/22/17 23:07 64 96 30 01/22/17 20:11 98.0 75 22 147/73 95 01/22/17 20:00 Nasal Cannula 2.0 01/22/17 20:00 70 01/22/17 18:34 2.0 01/22/17 16:00 79 01/22/17 15:43 97.4 70 20 151/62 96 01/22/17 12:00 73 01/22/17 11:35 97.3 72 21 126/58 97 01/22/17 08:05 74 01/22/17 08:05 74 01/22/17 08:00 Nasal Cannula 2.0 01/22/17 07:56 98.8 74 20 122/55 95 01/22/17 04:34 98.6 67 24 142/67 97 01/22/17 04:00 66 01/22/17 03:00 75 98 30 01/22/17 01:00 70 97 30 01/22/17 00:00 69 01/21/17 23:33 98.6 71 21 141/60 96 01/21/17 23:26 2.0 01/21/17 23:20 65 98 30 01/21/17 21:35 Nasal Cannula 5.0 01/21/17 20:52 98.6 66 18 142/61 94 01/21/17 20:00 63 01/21/17 16:03 74 01/21/17 16:00 Nasal Cannula 5.0 01/21/17 15:54 98.4 74 20 119/66 97 01/21/17 13:00 Nasal Cannula 5.0 01/21/17 12:53 98.7 69 21 127/56 97 01/21/17 12:45 66 01/21/17 12:00 98.3 18 125/76 99 01/21/17 11:00 66 17 117/70 97 01/21/17 10:00 62 18 132/68 95 01/21/17 09:00 63 24 111/60 97 01/21/17 08:00 Nasal Cannula 5.0 01/21/17 08:00 65 01/21/17 08:00 98.2 69 11 77/63 98 01/21/17 07:55 5.0 01/21/17 07:00 67 19 133/61 96 BIPAP 01/21/17 05:10 61 98 30 01/21/17 05:00 61 18 125/51 97 BIPAP 01/21/17 04:00 70 01/21/17 04:00 98.5 71 11 115/45 98 BIPAP 01/21/17 03:10 78 98 30 01/21/17 03:00 79 23 130/54 91 BIPAP 01/21/17 02:00 65 17 112/42 96 BIPAP 01/21/17 01:10 75 100 30 01/21/17 01:00 64 18 124/44 99 BIPAP 01/21/17 00:00 69 01/21/17 00:00 99.0 69 16 107/44 97 BIPAP 01/20/17 23:10 66 97 30 01/20/17 23:00 70 18 113/41 99 BIPAP 01/20/17 22:00 5.0 01/20/17 22:00 64 21 119/53 97 Nasal Cannula 3.0 01/20/17 21:00 71 19 136/59 97 Nasal Cannula 3.0 01/20/17 20:00 Nasal Cannula 5.0 01/20/17 20:00 69 01/20/17 20:00 98.9 70 22 135/62 99 Nasal Cannula 5.0 01/20/17 19:00 69 17 125/64 99 Nasal Cannula 5.0 01/20/17 17:00 65 21 104/42 100 Vital Signs Date Time Temp Pulse Resp B/P Pulse Ox O2 Delivery O2 Flow Rate FiO2 01/23/17 16:10 68 01/23/17 15:45 98.3 19 148/52 96 01/23/17 08:30 Nasal Cannula 2.0 01/23/17 03:01 30 Intake and Output 01/22/17 01/22/17 01/23/17 15:00 23:00 07:00 Intake Total 1200 ml 500 ml Output Total 2100 ml 1300 ml Balance -900 ml -800 ml Exam Constitutional: alert, obese, oriented Psych: nl mood/affect, no complaints Respiratory: clear to auscultation, normal air movement Cardiovascular: nl pulses, regular rate and rhythm Gastrointestinal: bowel sounds, nl liver, spleen, soft, tender (Diffusely), No mass, No non-tender, No rebound or guarding Musculoskeletal: nl extremities to inspection Extremities: normal pulses, No clubbing, No cyanosis, No edema Neurological: [employer] II-XII intact, nl mental status, nl speech, nl strength Additional Comments Bedside Glucose - 72 Hours Test 01/20/17 21:23 01/21/17 07:52 01/21/17 11:17 01/21/17 12:55 Bedside Glucose 87mg/dL (70-220) 109mg/dL (70-220) 147mg/dL (70-220) 88mg/dL (70-220) Test 01/21/17 17:35 01/21/17 21:41 01/22/17 05:35 01/22/17 09:13 Bedside Glucose 77mg/dL (70-220) 82mg/dL (70-220) 172mg/dL (70-220) 221mg/dL (70-220) H Test 01/22/17 12:45 01/22/17 17:46 01/22/17 21:53 01/23/17 02:26 Bedside Glucose 220mg/dL (70-220) 103mg/dL (70-220) 100mg/dL (70-220) 118mg/dL (70-220) Test 01/23/17 07:52 01/23/17 11:59 01/23/17 12:52 Bedside Glucose 127mg/dL (70-220) 73mg/dL (70-220) 73mg/dL (70-220) Results Result Diagram: 01/23/17 0639 01/23/17 0639 Results 24 hrs Laboratory Tests Test 01/22/17 17:46 01/22/17 21:53 01/23/17 02:26 01/23/17 06:39 Bedside Glucose 103 100 118 White Blood Count 9.4 Red Blood Count 4.26 Hemoglobin 11.5 L Hematocrit 39.1 Mean Corpuscular Volume 91.8 Mean Corpuscular Hemoglobin 27.0 L Mean Corpuscular Hemoglobin Concent 29.4 L Red Cell Distribution Width 15.1 H Platelet Count 345 Mean Platelet Volume 9.5 Neutrophils % 68.0 Lymphocytes % 20.1 Monocytes % 6.8 Eosinophils % 3.9 Basophils % 0.3 Nucleated Red Blood Cells % 0.0 Neutrophils # 6.4 Lymphocytes # 1.9 Monocytes # 0.6 Eosinophils # 0.4 Basophils # 0.0 Nucleated Red Blood Cells # 0.0 Sodium Level 143 Potassium Level 3.7 Chloride Level 93 L Carbon Dioxide Level 42 *H Anion Gap 12 Blood Urea Nitrogen 44 H Creatinine 1.35 H Glucose Level 127 # Calcium Level 9.5 Test 01/23/17 07:52 01/23/17 11:59 01/23/17 12:52 Bedside Glucose 127 73 73 Medications Medications Current Medications Ondansetron HCl (Zofran Inj) 4 mg Q6H PRN IV NAUSEA AND/OR VOMITING Last administered on 01/23/17 13:33; Admin Dose 4 MG; Start 01/19/17 at 02:00 Acetaminophen (Tylenol Supp) 650 mg Q4H PRN [place] PAIN LEVEL 1-3 OR FEVER; Start 01/19/17 at 02:00 Morphine Sulfate (morphine) 2 mg Q4H PRN IV PAIN LEVEL 7-10; Start 01/19/17 at 02:00 Lorazepam (Ativan) 0.5 mg Q4H PRN IV ANXIETY; Start 01/19/17 at 02:00 Miscellaneous Information 1 ea NOTE XX ; Start 01/19/17 at 06:30 Glucose (Glutose) 15 gm Q15M PRN PO DECREASED GLUCOSE; Start 01/19/17 at 06:30 Glucose (Glutose) 22.5 gm Q15M PRN PO DECREASED GLUCOSE; Start 01/19/17 at 06: 30 Dextrose (D50w Syringe) 25 ml Q15M PRN IV DECREASED GLUCOSE; Start 01/19/17 at 06:30 Dextrose (D50w Syringe) 50 ml Q15M PRN IV DECREASED GLUCOSE; Start 01/19/17 at 06:30 Glucagon (Glucagen) 1 mg Q15M PRN IM DECREASED GLUCOSE; Start 01/19/17 at 06: 30 Glucose (Glutose) 15 gm Q15M PRN BUCCAL DECREASED GLUCOSE; Start 01/19/17 at 06:30 Aspirin (Aspirin) 81 mg DAILY PO Last administered on 01/23/17 08:07; Admin Dose 81 MG; Start 01/19/17 at 09:00 Atorvastatin Calcium (Lipitor) 40 mg HS PO Last administered on 01/22/17 22: 02; Admin Dose 40 MG; Start 01/19/17 at 21:00 Clonazepam (Klonopin) 0.25 mg DAILY PRN PO ANXIETY; Start 01/19/17 at 06:30 Metoprolol Succinate (Toprol Xl) 50 mg DAILY PO Last administered on 08:08; Admin Dose 50 MG; Start 01/19/17 at 09:00 Paroxetine HCl (Paxil) 10 mg DAILY PO Last administered on 01/23/17 08:07; Admin Dose 10 MG; Start 01/19/17 at 09:00 Trazodone HCl (Desyrel) 50 mg QHS PO Last administered on 01/22/17 22:02; Admin Dose 50 MG; Start 01/19/17 at 21:00 Diagnostic Test (Pha) (Accu-Chek) 1 ea 02 XX Last administered on 01/23/17 02 :00; Admin Dose 1 EA; Start 01/20/17 at 02:00 Insulin Human NPH (Humulin N) 60 unit DAILY@22 SC Last administered on 22:54; Admin Dose 60 UNIT; Start 01/19/17 at 22:00 Linagliptin (Tradjenta) 5 mg DAILY PO Last administered on 01/23/17 08:07; Admin Dose 5 MG; Start 01/20/17 at 09:00 Empaglifozin (Jardiance) 10 mg DAILY@08 PO Last administered on 01/23/17 08: 08; Admin Dose 10 MG; Start 01/20/17 at 08:00 Mupirocin (Bactroban) 1 applic BID TOP Last administered on 01/23/17 08:08; Admin Dose 1 APPLIC; Start 01/20/17 at 11:00 Insulin Glargine (Lantus) 46 unit DAILY@08 SC Last administered on 01/23/17 08:11; Admin Dose 46 UNIT; Start 01/22/17 at 08:00 Magnesium Hydroxide (Milk Of Mag) 30 ml BID PRN PO CONSTIPATION Last administered on 01/21/17 11:58; Admin Dose 30 ML; Start 01/21/17 at 10:30 Bisacodyl (Dulcolax) 10 mg DAILY PRN PO CONSTIPATION Last administered on 01/23 12:10; Admin Dose 10 MG; Start 01/21/17 at 10:30 Senna/Docusate Sodium (Senokot-S) 2 tab BID PO Last administered on 01/23/17 08:07; Admin Dose 2 TAB; Start 01/22/17 at 21:00 Bisacodyl (Dulcolax) 10 mg DAILY PRN PO CONSTIPATION; Start 01/22/17 at 22:00 Bisacodyl (Dulcolax Supp) 10 mg DAILY PRN [place] CONSTIPATION Last administered on 10/31/17at 15:32; Admin Dose 10 MG; Start 01/23/17 at 15:30 Sodium Biphosphate/ Sodium Phosphate (Fleet Enema) 133 ml DAILY PRN [place] CONSTIPATION; Start 01/23/17 at 15:30 TONY KELLY MD Jan 23, 2017 17:00
[2017-01-23] MEDS: ATORVASTATIN 40 MG TAB PO SCH (20:22)
[2017-01-23] MEDS: traZODone 50 MG TAB PO SCH (20:22)
[2017-01-23] MEDS: NPH, HUMAN INSULIN ISOPHANE 3ML VIAL SC SCH (23:03)
[2017-01-24] VITALS (14 sets, daily range): BP systolic 126–143; BP diastolic 48–88; PULSE 61–75; RESP 18–21
[2017-01-24] MEDS: ACCU-CHEK XX SCH (02:00)
[2017-01-24] MEDS: FUROSEMIDE 40 MG INJ IV SCH ×2 (05:19→17:16)
[2017-01-24] MEDS: INSULIN ASPART [NOVOLOG] 3 ML PEN SC SCH ×7 (07:30→21:00)
[2017-01-24] MEDS: LINAGLIPTIN 5 MG TABLET PO SCH (08:08)
[2017-01-24] MEDS: ASPIRIN 81 MG TAB PO SCH (08:08)
[2017-01-24] MEDS: EMPAGLIFLOZIN 10 MG TABLET PO SCH (08:08)
[2017-01-24] MEDS: PAROXETINE 10 MG TAB PO SCH (08:08)
[2017-01-24] MEDS: METOPROLOL (XL) 50 MG TAB PO SCH (08:09)
[2017-01-24] MEDS: MUPIROCIN 2% 22 GM OINT TOP SCH ×2 (08:09→21:22)
[2017-01-24] MEDS: SENNA/DOCUSATE NA (8.6MG/50MG) TAB PO SCH ×2 (08:09→21:21)
[2017-01-24] MEDS: INSULIN GLARGINE [LANtus] 3 ML PEN SC SCH (08:10)
--- NOTE | 2017-01-24 11:27 | CONS ---
Date/Time of Note Date/Time of Note DATE: 01/24/17 TIME: 11:25 Assessment/Plan Assessment/Plan Additional Assessment/Plan Assessment and recommendations; 1. Patient admitted for CHF exacerbation with significant interval improvement. 2. History of hypertension diabetes and CHF. 3. Patient doing very well on 3 L nasal cannula. Patient does have home oxygen. Consider discharge. Continue current supportive care. Continue current medications on outpatient basis as well. Patient potentially could benefit from a sleep study . Consultation Date/Type/Reason Admit Date/Time Jan 19, 2017 at 01:40 Type of Consultation: Pulmonary Referring Provider: MADHU CAZARES 24 HR Interval Summary Free Text/Dictation Patient's condition is stable. Remains awake and alert. Denies any chest pain , wheezing, sputum production. Patient has been ambulatory. General exam; elderly woman, morbidly obese, awake and alert. Currently in no distress. Exam/Review of Systems Vital Signs Vitals Vital Signs Date Time Temp Pulse Resp B/P Pulse Ox O2 Delivery O2 Flow Rate FiO2 01/24/17 08:30 Nasal Cannula 2.0 01/24/17 08:05 75 01/24/17 07:55 97.8 21 143/59 98 01/24/17 04:50 30 Intake and Output 01/23/17 01/23/17 01/24/17 15:00 23:00 07:00 Intake Total 750 ml 600 ml Output Total 350 ml 400 ml Balance 400 ml 200 ml Exam HEENT exam; supple neck, no JVD. No lymphadenopathy. Midline trachea. No thyromegaly. Pharynx is clear. Patient is edentulous. Chest exam; diminished but clear breath sounds. S1-S2 audible, no murmurs. Regular rhythm. Abdomen exam; soft, nontender. Protuberant. No organomegaly. Bowel sounds audible. Extremity exam; no peripheral edema. 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 Results Result Diagram: 01/24/17 0701/24/17 0702 Results 24 hrs Laboratory Tests Test 01/23/17 11:59 01/23/17 12:52 01/23/17 17:20 01/23/17 20:04 Bedside Glucose 73 73 83 102 Test 01/23/17 22:38 01/24/17 07:02 01/24/17 08:07 Bedside Glucose 101 87 White Blood Count 11.9 #H Red Blood Count 4.32 Hemoglobin 12.1 Hematocrit 39.2 Mean Corpuscular Volume 90.7 Mean Corpuscular Hemoglobin 28.0 L Mean Corpuscular Hemoglobin Concent 30.9 L Red Cell Distribution Width 14.8 H Platelet Count 354 Mean Platelet Volume 9.3 Neutrophils % 75.3 Lymphocytes % 13.7 L Monocytes % 6.6 Eosinophils % 3.4 Basophils % 0.3 Nucleated Red Blood Cells % 0.0 Neutrophils # 9.0 H Lymphocytes # 1.6 Monocytes # 0.8 Eosinophils # 0.4 Basophils # 0.0 Nucleated Red Blood Cells # 0.0 Sodium Level 144 Potassium Level 3.3 L Chloride Level 92 L Carbon Dioxide Level 40 H Anion Gap 15 Blood Urea Nitrogen 40 H Creatinine 1.25 H Glucose Level 64 #L Calcium Level 9.3 Medications Medications Current Medications Ondansetron HCl (Zofran Inj) 4 mg Q6H PRN IV NAUSEA AND/OR VOMITING Last administered on 01/23/17t 13:33; Admin Dose 4 MG; Start 01/19/17 at 02:00 Acetaminophen (Tylenol Supp) 650 mg Q4H PRN [place] PAIN LEVEL 1-3 OR FEVER; Start 01/19/17 at 02:00 Morphine Sulfate (morphine) 2 mg Q4H PRN IV PAIN LEVEL 7-10; Start 01/19/17 at 02:00 Lorazepam (Ativan) 0.5 mg Q4H PRN IV ANXIETY; Start 01/19/17 at 02:00 Miscellaneous Information 1 ea NOTE XX ; Start 01/19/17 at 06:30 Glucose (Glutose) 15 gm Q15M PRN PO DECREASED GLUCOSE; Start 01/19/17 at 06:30 Glucose (Glutose) 22.5 gm Q15M PRN PO DECREASED GLUCOSE; Start 01/19/17 at 06: 30 Dextrose (D50w Syringe) 25 ml Q15M PRN IV DECREASED GLUCOSE; Start 01/19/17 at 06:30 Dextrose (D50w Syringe) 50 ml Q15M PRN IV DECREASED GLUCOSE; Start 01/19/17 at 06:30 Glucagon (Glucagen) 1 mg Q15M PRN IM DECREASED GLUCOSE; Start 01/19/17 at 06: 30 Glucose (Glutose) 15 gm Q15M PRN BUCCAL DECREASED GLUCOSE; Start 01/19/17 at 06:30 Aspirin (Aspirin) 81 mg DAILY PO Last administered on 01/24/17 08:08; Admin Dose 81 MG; Start 01/19/17 at 09:00 Atorvastatin Calcium (Lipitor) 40 mg HS PO Last administered on 01/23/17 20: 22; Admin Dose 40 MG; Start 01/19/17 at 21:00 Clonazepam (Klonopin) 0.25 mg DAILY PRN PO ANXIETY; Start 01/19/17 at 06:30 Metoprolol Succinate (Toprol Xl) 50 mg DAILY PO Last administered on 01/24/17 08:09; Admin Dose 50 MG; Start 01/19/17 at 09:00 Paroxetine HCl (Paxil) 10 mg DAILY PO Last administered on 01/24/17 08:08; Admin Dose 10 MG; Start 01/19/17 at 09:00 Trazodone HCl (Desyrel) 50 mg QHS PO Last administered on 01/23/17 20:22; Admin Dose 50 MG; Start 01/19/17 at 21:00 Diagnostic Test (Pha) (Accu-Chek) 1 ea 02 XX Last administered on 01/23/17 02 :00; Admin Dose 1 EA; Start 01/20/17 at 02:00 Insulin Human NPH (Humulin N) 60 unit DAILY@22 SC Last administered on 23:03; Admin Dose 60 UNIT; Start 01/19/17 at 22:00 Linagliptin (Tradjenta) 5 mg DAILY PO Last administered on 01/24/17 08:08; Admin Dose 5 MG; Start 01/20/17 at 09:00 Empaglifozin (Jardiance) 10 mg DAILY@08 PO Last administered on 01/24/17 08:08 ; Admin Dose 10 MG; Start 01/20/17 at 08:00 Mupirocin (Bactroban) 1 applic BID TOP Last administered on 01/24/17 08:09; Admin Dose 1 APPLIC; Start 01/20/17 at 11:00 Insulin Glargine (Lantus) 46 unit DAILY@08 SC Last administered on 01/24/17 08 :10; Admin Dose 46 UNIT; Start 01/22/17 at 08:00 Magnesium Hydroxide (Milk Of Mag) 30 ml BID PRN PO CONSTIPATION Last administered on 01/21/17 11:58; Admin Dose 30 ML; Start 01/21/17 at 10:30 Bisacodyl (Dulcolax) 10 mg DAILY PRN PO CONSTIPATION Last administered on 01/23 12:10; Admin Dose 10 MG; Start 01/21/17 at 10:30 Senna/Docusate Sodium (Senokot-S) 2 tab BID PO Last administered on 01/24/17 08:09; Admin Dose 2 TAB; Start 01/22/17 at 21:00 Bisacodyl (Dulcolax) 10 mg DAILY PRN PO CONSTIPATION; Start 01/22/17 at 22:00 Bisacodyl (Dulcolax Supp) 10 mg DAILY PRN [place] CONSTIPATION Last administered on 01/23/17 15:32; Admin Dose 10 MG; Start 01/23/17 at 15:30 Sodium Biphosphate/ Sodium Phosphate (Fleet Enema) 133 ml DAILY PRN [place] CONSTIPATION; Start 01/23/17 at 15:30 MIGUEL RIVERA Jan 24, 2017 11:27
[2017-01-24] MEDS ORDERED: POTASSIUM CHLORIDE 20 MEQ POWDER FOR ORAL SOLN PO ONE (15:30)
--- NOTE | 2017-01-24 17:12 | PN ---
Date/Time of Note Date/Time of Note DATE: 01/24/17 TIME: 17:10 Assessment/Plan VTE Prophylaxis VTE Prophylaxis Intervention: SCD's Lines/Catheters IV [facility] Type ([facility]): Peripheral IV Urinary Cath still in place: Yes Reason Cath still needed: urinary retention Assessment/Plan Chief Complaint/Hosp Course Mild hypokalemia potassium replaced, PT eval Assessment/Plan - ARF 2 to pulm edema, resolving. Dr. Bravo is following in pulmonology consultation. - Diastolic acute on chronic congestive heart failure exacerbation. Continue Lasix. Dr. Cota is following in cardiology consultation. Continue to monitor electrolytes. - Positive troponin. - Hypertension. - Diabetes mellitus type 2 with hemoglobin A1c 9.2. Continue Lantus and pre- meal NovoLog as well as NovoLog per mild algorithm sliding scale. Dr. Bartholomew is following in endocrinology consultation. - Acute on chronic kidney disease. Continue to monitor BUN and creatinine. - Possible sleep apnea, continue BiPAP per pulmonology. - Hyperlipidemia. Continue statin. - Morbid obesity Further recommendations based on clinical course. Plan of care discussed with Dr. Garza. Problems: Exam/Review of Systems Vital Signs Vitals Vital Signs Date Time Temp Pulse Resp B/P Pulse Ox O2 Delivery O2 Flow Rate FiO2 01/24/17 16:06 61 01/24/17 15:52 98.5 21 126/88 96 01/24/17 08:30 Nasal Cannula 2.0 01/24/17 04:50 30 Intake and Output 01/23/17 01/23/17 01/24/17 14:59 22:59 06:59 Intake Total 750 ml 600 ml Output Total 350 ml 400 ml Balance 400 ml 200 ml Exam Constitutional: alert, oriented Head: normocephalic Neck: supple Respiratory: Slightly diminished breath sounds Cardiovascular: nl pulses, regular rate and rhythm Gastrointestinal: non-tender, soft Extremities: normal pulses Neurological: nl mental status Results Result Diagram: 01/24/17 0702 01/24/17 0702 Results 24 hrs Laboratory Tests Test 01/23/17 17:20 01/23/17 20:04 01/23/17 22:38 01/24/17 07:02 Bedside Glucose 83 102 101 White Blood Count 11.9 #H Red Blood Count 4.32 Hemoglobin 12.1 Hematocrit 39.2 Mean Corpuscular Volume 90.7 Mean Corpuscular Hemoglobin 28.0 L Mean Corpuscular Hemoglobin Concent 30.9 L Red Cell Distribution Width 14.8 H Platelet Count 354 Mean Platelet Volume 9.3 Neutrophils % 75.3 Lymphocytes % 13.7 L Monocytes % 6.6 Eosinophils % 3.4 Basophils % 0.3 Nucleated Red Blood Cells % 0.0 Neutrophils # 9.0 H Lymphocytes # 1.6 Monocytes # 0.8 Eosinophils # 0.4 Basophils # 0.0 Nucleated Red Blood Cells # 0.0 Sodium Level 144 Potassium Level 3.3 L Chloride Level 92 L Carbon Dioxide Level 40 H Anion Gap 15 Blood Urea Nitrogen 40 H Creatinine 1.25 H Glucose Level 64 #L Calcium Level 9.3 Test 01/24/17 08:07 01/24/17 11:59 Bedside Glucose 87 126 Medications Medications Current Medications Ondansetron HCl (Zofran Inj) 4 mg Q6H PRN IV NAUSEA AND/OR VOMITING Last administered on 01/23/17t 13:33; Admin Dose 4 MG; Start 01/19/17 at 02:00 Acetaminophen (Tylenol Supp) 650 mg Q4H PRN [place] PAIN LEVEL 1-3 OR FEVER; Start 01/19/17 at 02:00 Morphine Sulfate (morphine) 2 mg Q4H PRN IV PAIN LEVEL 7-10; Start 01/19/17 at 02:00 Lorazepam (Ativan) 0.5 mg Q4H PRN IV ANXIETY; Start 01/19/17 at 02:00 Miscellaneous Information 1 ea NOTE XX ; Start 01/19/17 at 06:30 Glucose (Glutose) 15 gm Q15M PRN PO DECREASED GLUCOSE; Start 01/19/17 at 06:30 Glucose (Glutose) 22.5 gm Q15M PRN PO DECREASED GLUCOSE; Start 01/19/17 at 06: 30 Dextrose (D50w Syringe) 25 ml Q15M PRN IV DECREASED GLUCOSE; Start 01/19/17 at 06:30 Dextrose (D50w Syringe) 50 ml Q15M PRN IV DECREASED GLUCOSE; Start 01/19/17 at 06:30 Glucagon (Glucagen) 1 mg Q15M PRN IM DECREASED GLUCOSE; Start 01/19/17 at 06: 30 Glucose (Glutose) 15 gm Q15M PRN BUCCAL DECREASED GLUCOSE; Start 01/19/17 at 06:30 Aspirin (Aspirin) 81 mg DAILY PO Last administered on 01/24/17 08:08; Admin Dose 81 MG; Start 01/19/17 at 09:00 Atorvastatin Calcium (Lipitor) 40 mg HS PO Last administered on 01/23/17 20: 22; Admin Dose 40 MG; Start 01/19/17 at 21:00 Clonazepam (Klonopin) 0.25 mg DAILY PRN PO ANXIETY; Start 01/19/17 at 06:30 Metoprolol Succinate (Toprol Xl) 50 mg DAILY PO Last administered on 01/24/17 08:09; Admin Dose 50 MG; Start 01/19/17 at 09:00 Paroxetine HCl (Paxil) 10 mg DAILY PO Last administered on 01/24/17 08:08; Admin Dose 10 MG; Start 01/19/17 at 09:00 Trazodone HCl (Desyrel) 50 mg QHS PO Last administered on 01/23/17 20:22; Admin Dose 50 MG; Start 01/19/17 at 21:00 Diagnostic Test (Pha) (Accu-Chek) 1 ea 02 XX Last administered on 01/23/17 02 :00; Admin Dose 1 EA; Start 01/20/17 at 02:00 Insulin Human NPH (Humulin N) 60 unit DAILY@22 SC Last administered on 23:03; Admin Dose 60 UNIT; Start 01/19/17 at 22:00 Linagliptin (Tradjenta) 5 mg DAILY PO Last administered on 01/24/17 08:08; Admin Dose 5 MG; Start 01/20/17 at 09:00 Empaglifozin (Jardiance) 10 mg DAILY@08 PO Last administered on 01/24/17 08:08 ; Admin Dose 10 MG; Start 01/20/17 at 08:00 Mupirocin (Bactroban) 1 applic BID TOP Last administered on 01/24/17 08:09; Admin Dose 1 APPLIC; Start 01/20/17 at 11:00 Insulin Glargine (Lantus) 46 unit DAILY@08 SC Last administered on 01/24/17 08 :10; Admin Dose 46 UNIT; Start 01/22/17 at 08:00 Magnesium Hydroxide (Milk Of Mag) 30 ml BID PRN PO CONSTIPATION Last administered on 01/21/17 11:58; Admin Dose 30 ML; Start 01/21/17 at 10:30 Bisacodyl (Dulcolax) 10 mg DAILY PRN PO CONSTIPATION Last administered on 01/23 12:10; Admin Dose 10 MG; Start 01/21/17 at 10:30 Senna/Docusate Sodium (Senokot-S) 2 tab BID PO Last administered on 01/24/17 08:09; Admin Dose 2 TAB; Start 01/22/17 at 21:00 Bisacodyl (Dulcolax) 10 mg DAILY PRN PO CONSTIPATION; Start 01/22/17 at 22:00 Bisacodyl (Dulcolax Supp) 10 mg DAILY PRN [place] CONSTIPATION Last administered on 01/23/17 15:32; Admin Dose 10 MG; Start 01/23/17 at 15:30 Sodium Biphosphate/ Sodium Phosphate (Fleet Enema) 133 ml DAILY PRN [place] CONSTIPATION; Start 01/23/17 at 15:30 MADHU CAZARES Jan 24, 2017 17:12
[2017-01-24] MEDS: BISACODYL 10 MG SUPP PR PRN (17:16)
--- NOTE | 2017-01-24 17:58 | CONS ---
Date/Time of Note Date/Time of Note DATE: 01/24/17 TIME: 17:56 Assessment/Plan Assessment/Plan Problems: (1) DM w/o complication type II, uncontrolled Status: Chronic Comment: Excellent glycemic control. Cont. current insulin doses Consultation Date/Type/Reason Admit Date/Time Jan 19, 2017 at 01:40 Initial Consult Date 01/19/17 Type of Consultation: Endocrinology Reason for Consultation Type 2 Diabetes mellitus management Referring Provider: MADHU CAZARES 24 HR Interval Summary Constitutional: improved, no complaints Detailed Summary Respiratory: no complaints Cardiovascular: no complaints Gastrointestinal: decreased appetite, flatus, pain, passing stool Genitourinary: no complaints Musculoskeletal: no complaints Neurologic: no complaints Exam/Review of Systems Vital Signs Vitals VS - Last 72 Hours, by Label Date Time Temp Pulse Resp B/P Pulse Ox O2 Delivery O2 Flow Rate FiO2 01/24/17 16:06 61 01/24/17 15:52 98.5 62 21 126/88 96 01/24/17 12:00 63 01/24/17 11:52 98.2 57 21 134/48 91 01/24/17 08:30 Nasal Cannula 2.0 01/24/17 08:16 2.0 01/24/17 08:05 75 01/24/17 07:55 97.8 66 21 143/59 98 01/24/17 04:50 72 96 30 01/24/17 04:00 69 01/24/17 03:57 98.0 67 20 128/70 97 01/24/17 03:00 72 96 30 01/24/17 00:48 61 97 30 01/24/17 00:00 Nasal Cannula 2.0 01/24/17 00:00 66 01/23/17 23:31 98.1 62 21 137/65 98 01/23/17 22:40 2.0 01/23/17 22:40 62 97 30 01/23/17 20:01 66 01/23/17 19:31 98.4 67 21 149/55 95 01/23/17 19:19 Nasal Cannula 2.0 01/23/17 16:10 68 01/23/17 15:45 98.3 79 19 148/52 96 01/23/17 12:00 59 01/23/17 11:25 98.1 61 19 126/67 95 01/23/17 09:27 60 01/23/17 08:30 Nasal Cannula 2.0 01/23/17 07:58 98.1 62 19 136/63 98 01/23/17 07:36 2.0 01/23/17 05:44 2.0 01/23/17 04:41 98.8 56 20 134/61 98 01/23/17 04:00 60 01/23/17 03:01 65 96 30 01/23/17 01:20 67 96 30 01/23/17 00:19 98.8 60 20 153/64 98 01/23/17 00:02 61 01/22/17 23:07 64 96 30 01/22/17 20:11 98.0 75 22 147/73 95 01/22/17 20:00 Nasal Cannula 2.0 01/22/17 20:00 70 01/22/17 18:34 2.0 01/22/17 16:00 79 01/22/17 15:43 97.4 70 20 151/62 96 01/22/17 12:00 73 01/22/17 11:35 97.3 72 21 126/58 97 01/22/17 08:05 74 01/22/17 08:05 74 01/22/17 08:00 Nasal Cannula 2.0 01/22/17 07:56 98.8 74 20 122/55 95 01/22/17 04:34 98.6 67 24 142/67 97 01/22/17 04:00 66 01/22/17 03:00 75 98 30 01/22/17 01:00 70 97 30 01/22/17 00:00 69 01/21/17 23:33 98.6 71 21 141/60 96 01/21/17 23:26 2.0 01/21/17 23:20 65 98 30 01/21/17 21:35 Nasal Cannula 5.0 01/21/17 20:52 98.6 66 18 142/61 94 01/21/17 20:00 63 Vital Signs Date Time Temp Pulse Resp B/P Pulse Ox O2 Delivery O2 Flow Rate FiO2 01/24/17 16:06 61 01/24/17 15:52 98.5 21 126/88 96 01/24/17 08:30 Nasal Cannula 2.0 01/24/17 04:50 30 Intake and Output 01/23/17 01/23/17 01/24/17 15:00 23:00 07:00 Intake Total 750 ml 600 ml Output Total 350 ml 400 ml Balance 400 ml 200 ml Exam Constitutional: alert, obese, oriented Psych: nl mood/affect, no complaints Respiratory: clear to auscultation, normal air movement Cardiovascular: nl pulses, regular rate and rhythm, No edema, No murmurs/extra sounds, No rub Gastrointestinal: bowel sounds, nl liver, spleen, non-tender, soft, No mass, No rebound or guarding Musculoskeletal: nl extremities to inspection Extremities: normal pulses, No clubbing, No cyanosis, No edema Neurological: [employer] II-XII intact, nl mental status, nl speech, nl strength Additional Comments Bedside Glucose - 72 Hours Test 01/21/17 21:41 01/22/17 05:35 01/22/17 09:13 01/22/17 12:45 Bedside Glucose 82mg/dL (70-220) 172mg/dL (70-220) 221mg/dL (70-220) H 220mg/dL (70-220) Test 01/22/17 17:46 01/22/17 21:53 01/23/17 02:26 01/23/17 07:52 Bedside Glucose 103mg/dL (70-220) 100mg/dL (70-220) 118mg/dL (70-220) 127mg/dL (70-220) Test 01/23/17 11:59 01/23/17 12:52 01/23/17 17:20 01/23/17 20:04 Bedside Glucose 73mg/dL (70-220) 73mg/dL (70-220) 83mg/dL (70-220) 102mg/dL (70-220) Test 01/23/17 22:38 01/24/17 08:07 01/24/17 11:59 01/24/17 17:08 Bedside Glucose 101mg/dL (70-220) 87mg/dL (70-220) 126mg/dL (70-220) 126mg/dL (70-220) Results Result Diagram: 01/24/1770101/24/17 0702 Results 24 hrs Laboratory Tests Test 01/23/17 20:04 01/23/17 22:38 01/24/17 07:02 01/24/17 08:07 Bedside Glucose 102 101 87 White Blood Count 11.9 #H Red Blood Count 4.32 Hemoglobin 12.1 Hematocrit 39.2 Mean Corpuscular Volume 90.7 Mean Corpuscular Hemoglobin 28.0 L Mean Corpuscular Hemoglobin Concent 30.9 L Red Cell Distribution Width 14.8 H Platelet Count 354 Mean Platelet Volume 9.3 Neutrophils % 75.3 Lymphocytes % 13.7 L Monocytes % 6.6 Eosinophils % 3.4 Basophils % 0.3 Nucleated Red Blood Cells % 0.0 Neutrophils # 9.0 H Lymphocytes # 1.6 Monocytes # 0.8 Eosinophils # 0.4 Basophils # 0.0 Nucleated Red Blood Cells # 0.0 Sodium Level 144 Potassium Level 3.3 L Chloride Level 92 L Carbon Dioxide Level 40 H Anion Gap 15 Blood Urea Nitrogen 40 H Creatinine 1.25 H Glucose Level 64 #L Calcium Level 9.3 Test 01/24/17 11:59 01/24/17 17:08 Bedside Glucose 126 126 Medications Medications Current Medications Ondansetron HCl (Zofran Inj) 4 mg Q6H PRN IV NAUSEA AND/OR VOMITING Last administered on 01/23/17t 13:33; Admin Dose 4 MG; Start 01/19/17 at 02:00 Acetaminophen (Tylenol Supp) 650 mg Q4H PRN [place] PAIN LEVEL 1-3 OR FEVER; Start 01/19/17 at 02:00 Morphine Sulfate (morphine) 2 mg Q4H PRN IV PAIN LEVEL 7-10; Start 01/19/17 at 02:00 Lorazepam (Ativan) 0.5 mg Q4H PRN IV ANXIETY; Start 01/19/17 at 02:00 Miscellaneous Information 1 ea NOTE XX ; Start 01/19/17 at 06:30 Glucose (Glutose) 15 gm Q15M PRN PO DECREASED GLUCOSE; Start 01/19/17 at 06:30 Glucose (Glutose) 22.5 gm Q15M PRN PO DECREASED GLUCOSE; Start 01/19/17 at 06: 30 Dextrose (D50w Syringe) 25 ml Q15M PRN IV DECREASED GLUCOSE; Start 01/19/17 at 06:30 Dextrose (D50w Syringe) 50 ml Q15M PRN IV DECREASED GLUCOSE; Start 01/19/17 at 06:30 Glucagon (Glucagen) 1 mg Q15M PRN IM DECREASED GLUCOSE; Start 01/19/17 at 06: 30 Glucose (Glutose) 15 gm Q15M PRN BUCCAL DECREASED GLUCOSE; Start 01/19/17 at 06:30 Aspirin (Aspirin) 81 mg DAILY PO Last administered on 01/24/17 08:08; Admin Dose 81 MG; Start 01/19/17 at 09:00 Atorvastatin Calcium (Lipitor) 40 mg HS PO Last administered on 01/23/17 20: 22; Admin Dose 40 MG; Start 01/19/17 at 21:00 Clonazepam (Klonopin) 0.25 mg DAILY PRN PO ANXIETY; Start 01/19/17 at 06:30 Metoprolol Succinate (Toprol Xl) 50 mg DAILY PO Last administered on 01/24/17 08:09; Admin Dose 50 MG; Start 01/19/17 at 09:00 Paroxetine HCl (Paxil) 10 mg DAILY PO Last administered on 01/24/17 08:08; Admin Dose 10 MG; Start 01/19/17 at 09:00 Trazodone HCl (Desyrel) 50 mg QHS PO Last administered on 01/23/17 20:22; Admin Dose 50 MG; Start 01/19/17 at 21:00 Diagnostic Test (Pha) (Accu-Chek) 1 ea 02 XX Last administered on 01/23/17 02 :00; Admin Dose 1 EA; Start 01/20/17 at 02:00 Insulin Human NPH (Humulin N) 60 unit DAILY@22 SC Last administered on 23:03; Admin Dose 60 UNIT; Start 01/19/17 at 22:00 Linagliptin (Tradjenta) 5 mg DAILY PO Last administered on 01/24/17 08:08; Admin Dose 5 MG; Start 01/20/17 at 09:00 Empaglifozin (Jardiance) 10 mg DAILY@08 PO Last administered on 01/24/17 08:08 ; Admin Dose 10 MG; Start 01/20/17 at 08:00 Mupirocin (Bactroban) 1 applic BID TOP Last administered on 01/24/17 08:09; Admin Dose 1 APPLIC; Start 01/20/17 at 11:00 Insulin Glargine (Lantus) 46 unit DAILY@08 SC Last administered on 01/24/17 08 :10; Admin Dose 46 UNIT; Start 01/22/17 at 08:00 Magnesium Hydroxide (Milk Of Mag) 30 ml BID PRN PO CONSTIPATION Last administered on 01/21/17 11:58; Admin Dose 30 ML; Start 01/21/17 at 10:30 Bisacodyl (Dulcolax) 10 mg DAILY PRN PO CONSTIPATION Last administered on 01/23 12:10; Admin Dose 10 MG; Start 01/21/17 at 10:30 Senna/Docusate Sodium (Senokot-S) 2 tab BID PO Last administered on 01/24/17 08:09; Admin Dose 2 TAB; Start 01/22/17 at 21:00 Bisacodyl (Dulcolax) 10 mg DAILY PRN PO CONSTIPATION; Start 01/22/17 at 22:00 Bisacodyl (Dulcolax Supp) 10 mg DAILY PRN [place] CONSTIPATION Last administered on 01/24/17 17:16; Admin Dose 10 MG; Start 01/23/17 at 15:30 Sodium Biphosphate/ Sodium Phosphate (Fleet Enema) 133 ml DAILY PRN [place] CONSTIPATION; Start 01/23/17 at 15:30 TONY KELLY MD Jan 24, 2017 17:58
[2017-01-24] MEDS: traZODone 50 MG TAB PO SCH (21:21)
[2017-01-24] MEDS: ATORVASTATIN 40 MG TAB PO SCH (21:21)
[2017-01-24] MEDS: NPH, HUMAN INSULIN ISOPHANE 3ML VIAL SC SCH (21:26)
[2017-01-25] VITALS (12 sets, daily range): BP systolic 107–145; BP diastolic 49–69; PULSE 59–70; RESP 18–21
[2017-01-25] MEDS: ACCU-CHEK XX SCH (02:00)
[2017-01-25] MEDS: FUROSEMIDE 40 MG INJ IV SCH (05:29)
[2017-01-25] MEDS: INSULIN ASPART [NOVOLOG] 3 ML PEN SC SCH ×7 (07:30→20:32)
[2017-01-25] MEDS: EMPAGLIFLOZIN 10 MG TABLET PO SCH (09:15)
[2017-01-25] MEDS: ASPIRIN 81 MG TAB PO SCH (09:15)
[2017-01-25] MEDS: LINAGLIPTIN 5 MG TABLET PO SCH (09:15)
[2017-01-25] MEDS: METOPROLOL (XL) 50 MG TAB PO SCH (09:15)
[2017-01-25] MEDS: SENNA/DOCUSATE NA (8.6MG/50MG) TAB PO SCH ×2 (09:15→20:31)
[2017-01-25] MEDS: PAROXETINE 10 MG TAB PO SCH (09:15)
[2017-01-25] MEDS: INSULIN GLARGINE [LANtus] 3 ML PEN SC SCH (09:18)
[2017-01-25] MEDS: MUPIROCIN 2% 22 GM OINT TOP SCH ×2 (09:23→20:32)
--- NOTE | 2017-01-25 12:09 | PN ---
Date/Time of Note Date/Time of Note DATE: 01/25/17 TIME: 12:02 Assessment/Plan VTE Prophylaxis VTE Prophylaxis Intervention: other Lines/Catheters IV C[facility]ter Type ([facility] Saline Lock Urinary Cath still in place: Yes Reason Cath still needed: urinary retention Assessment/Plan Assessment/Plan - Mild hypokalemia potassium resolved - ARF 2 to pulm edema, resolving. Dr. Bravo is following in pulmonology consultation. - Diastolic acute on chronic congestive heart failure exacerbation. Continue Lasix. Dr. Cota is following in cardiology consultation. Continue to monitor electrolytes. - Positive troponin. - Hypertension. - Diabetes mellitus type 2 with hemoglobin A1c 9.2. Continue Lantus and pre- meal NovoLog as well as NovoLog per mild algorithm sliding scale. Dr. Bartholomew is following in endocrinology consultation. - Acute on chronic kidney disease. Continue to monitor BUN and creatinine. - elevating creatinine- Dr Rhett Kraft notified - Possible sleep apnea, continue BiPAP per pulmonology. - Hyperlipidemia. Continue statin. - Morbid obesity Further recommendations based on clinical course. Plan of care discussed with Dr. Garza. Subjective 24 Hr Interval Summary Free Text/Dictation sitting up in chair, getting PT- tolerates well. no new complaints- dw staff Constitutional: requiring O2 Respiratory: shortness of breath Cardiovascular: no complaints Gastrointestinal: no complaints Genitourinary: no complaints Exam/Review of Systems Vital Signs Vitals Vital Signs Date Time Temp Pulse Resp B/P Pulse Ox O2 Delivery O2 Flow Rate FiO2 01/25/17 11:47 98.6 60 21 107/49 97 01/25/17 08:00 Nasal Cannula 2.0 01/24/17 04:50 30 Intake and Output 01/24/17 01/24/17 01/25/17 15:00 23:00 07:00 Intake Total 800 ml 500 ml Output Total 700 ml 600 ml Balance 100 ml -100 ml Exam Constitutional: alert, obese Respiratory: diminished breath sounds, normal air movement Cardiovascular: nl pulses, other (s1s2) Gastrointestinal: non-tender, soft Musculoskeletal: nl extremities to inspection Extremities: normal pulses Neurological: nl mental status, nl speech Results Result Diagram: 01/25/17 0555 01/25/17 0555 Results 24 hrs Laboratory Tests Test 01/24/17 17:08 01/24/17 21:20 01/24/17 22:09 01/25/17 05:55 Bedside Glucose 126 85 80 White Blood Count 11.3 H Red Blood Count 4.20 Hemoglobin 11.9 L Hematocrit 39.1 Mean Corpuscular Volume 93.1 Mean Corpuscular Hemoglobin 28.3 L Mean Corpuscular Hemoglobin Concent 30.4 L Red Cell Distribution Width 14.8 H Platelet Count 339 Mean Platelet Volume 9.5 Neutrophils % 75.2 Lymphocytes % 14.3 L Monocytes % 6.2 Eosinophils % 3.4 Basophils % 0.4 Nucleated Red Blood Cells % 0.0 Neutrophils # 8.5 H Lymphocytes # 1.6 Monocytes # 0.7 Eosinophils # 0.4 Basophils # 0.1 Nucleated Red Blood Cells # 0.0 Sodium Level 144 Potassium Level 4.0 Chloride Level 94 L Carbon Dioxide Level 43 *H Anion Gap 11 Blood Urea Nitrogen 46 H Creatinine 1.39 H Glucose Level 92 Calcium Level 9.4 Test 01/25/17 08:11 01/25/17 11:59 Bedside Glucose 117 185 Medications Medications Current Medications Ondansetron HCl (Zofran Inj) 4 mg Q6H PRN IV NAUSEA AND/OR VOMITING Last administered on 01/23/17t 13:33; Admin Dose 4 MG; Start 01/19/17 at 02:00 Acetaminophen (Tylenol Supp) 650 mg Q4H PRN [place] PAIN LEVEL 1-3 OR FEVER; Start 01/19/17 at 02:00 Morphine Sulfate (morphine) 2 mg Q4H PRN [place] PAIN LEVEL 7-10; Start 01/19/17 at 02:00 Lorazepam (Ativan) 0.5 mg Q4H PRN IV ANXIETY; Start 01/19/17 at 02:00 Miscellaneous Information 1 ea NOTE XX ; Start 01/19/17 at 06:30 Glucose (Glutose) 15 gm Q15M PRN PO DECREASED GLUCOSE; Start 01/19/17 at 06:30 Glucose (Glutose) 22.5 gm Q15M PRN PO DECREASED GLUCOSE; Start 01/19/17 at 06: 30 Dextrose (D50w Syringe) 25 ml Q15M PRN IV DECREASED GLUCOSE; Start 01/19/17 at 06:30 Dextrose (D50w Syringe) 50 ml Q15M PRN IV DECREASED GLUCOSE; Start 01/19/17 at 06:30 Glucagon (Glucagen) 1 mg Q15M PRN IM DECREASED GLUCOSE; Start 01/19/17 at 06: 30 Glucose (Glutose) 15 gm Q15M PRN BUCCAL DECREASED GLUCOSE; Start 01/19/17 at 06:30 Aspirin (Aspirin) 81 mg DAILY PO Last administered on 01/25/17 09:15; Admin Dose 81 MG; Start 01/19/17 at 09:00 Atorvastatin Calcium (Lipitor) 40 mg HS PO Last administered on 01/24/17 21:21 ; Admin Dose 40 MG; Start 01/19/17 at 21:00 Clonazepam (Klonopin) 0.25 mg DAILY PRN PO ANXIETY; Start 01/19/17 at 06:30 Metoprolol Succinate (Toprol Xl) 50 mg DAILY PO Last administered on 01/25/17 09:15; Admin Dose 50 MG; Start 01/19/17 at 09:00 Paroxetine HCl (Paxil) 10 mg DAILY PO Last administered on 01/25/17 09:15; Admin Dose 10 MG; Start 01/19/17 at 09:00 Trazodone HCl (Desyrel) 50 mg QHS PO Last administered on 01/24/17 21:21; Admin Dose 50 MG; Start 01/19/17 at 21:00 Diagnostic Test (Pha) (Accu-Chek) 1 ea 02 XX Last administered on 01/23/17 02 :00; Admin Dose 1 EA; Start 01/20/17 at 02:00 Insulin Human NPH (Humulin N) 60 unit DAILY@22 SC Last administered on 21:26; Admin Dose 60 UNIT; Start 01/19/17 at 22:00 Linagliptin (Tradjenta) 5 mg DAILY PO Last administered on 01/25/17 09:15; Admin Dose 5 MG; Start 01/20/17 at 09:00 Empaglifozin (Jardiance) 10 mg DAILY@08 PO Last administered on 01/25/17 09:15 ; Admin Dose 10 MG; Start 01/20/17 at 08:00 Mupirocin (Bactroban) 1 applic BID TOP Last administered on 01/25/17 09:23; Admin Dose 1 APPLIC; Start 01/20/17 at 11:00 Insulin Glargine (Lantus) 46 unit DAILY@08 SC Last administered on 01/25/17 09 :18; Admin Dose 46 UNIT; Start 01/22/17 at 08:00 Magnesium Hydroxide (Milk Of Mag) 30 ml BID PRN PO CONSTIPATION Last administered on 01/21/17 11:58; Admin Dose 30 ML; Start 01/21/17 at 10:30 Bisacodyl (Dulcolax) 10 mg DAILY PRN PO CONSTIPATION Last administered on 01/23 12:10; Admin Dose 10 MG; Start 01/21/17 at 10:30 Senna/Docusate Sodium (Senokot-S) 2 tab BID PO Last administered on 01/25/17 09:15; Admin Dose 2 TAB; Start 01/22/17 at 21:00 Bisacodyl (Dulcolax) 10 mg DAILY PRN PO CONSTIPATION; Start 01/22/17 at 22:00 Bisacodyl (Dulcolax Supp) 10 mg DAILY PRN [place] CONSTIPATION Last administered on 01/24/17 17:16; Admin Dose 10 MG; Start 01/23/17 at 15:30 Sodium Biphosphate/ Sodium Phosphate (Fleet Enema) 133 ml DAILY PRN [place] CONSTIPATION; Start 01/23/17 at 15:30 ENRRIQUE AGUILAR Jan 25, 2017 12:09
--- NOTE | 2017-01-25 13:47 | CONS ---
Date/Time of Note Date/Time of Note DATE: 01/25/17 TIME: 13:43 Assessment/Plan Assessment/Plan Problems: (1) DM w/o complication type II, uncontrolled Status: Chronic Comment: Doing well. Excellent glycemic control. Will continue current insulin doses. Consultation Date/Type/Reason Admit Date/Time Jan 19, 2017 at 01:40 Initial Consult Date 01/19/17 Type of Consultation: Endocrinology Reason for Consultation Type 2 Diabetes management Referring Provider: MADHU CAZARES 24 HR Interval Summary Constitutional: improved, no complaints Detailed Summary Respiratory: no complaints Cardiovascular: no complaints Gastrointestinal: no complaints Genitourinary: no complaints Musculoskeletal: no complaints Neurologic: no complaints Exam/Review of Systems Vital Signs Vitals VS - Last 72 Hours, by Label Date Time Temp Pulse Resp B/P Pulse Ox O2 Delivery O2 Flow Rate FiO2 01/25/17 12:02 59 01/25/17 11:47 98.6 60 21 107/49 97 01/25/17 08:10 70 01/25/17 08:00 98.7 70 20 114/61 96 01/25/17 08:00 Nasal Cannula 2.0 01/25/17 04:43 98.9 71 20 117/66 99 01/25/17 04:00 69 01/25/17 00:21 97.1 60 18 128/69 96 01/25/17 00:00 60 01/24/17 22:05 2.0 01/24/17 20:00 63 01/24/17 19:54 98.1 60 18 135/68 97 01/24/17 16:06 61 01/24/17 15:52 98.5 62 21 126/88 96 01/24/17 12:00 63 01/24/17 11:52 98.2 57 21 134/48 91 01/24/17 08:30 Nasal Cannula 2.0 01/24/17 08:16 2.0 01/24/17 08:05 75 01/24/17 07:55 97.8 66 21 143/59 98 01/24/17 04:50 72 96 30 01/24/17 04:00 69 01/24/17 03:57 98.0 67 20 128/70 97 01/24/17 03:00 72 96 30 01/24/17 00:48 61 97 30 01/24/17 00:00 Nasal Cannula 2.0 01/24/17 00:00 66 01/23/17 23:31 98.1 62 21 137/65 98 01/23/17 22:40 2.0 01/23/17 22:40 62 97 30 01/23/17 20:01 66 01/23/17 19:31 98.4 67 21 149/55 95 01/23/17 19:19 Nasal Cannula 2.0 01/23/17 16:10 68 01/23/17 15:45 98.3 79 19 148/52 96 01/23/17 12:00 59 01/23/17 11:25 98.1 61 19 126/67 95 01/23/17 09:27 60 01/23/17 08:30 Nasal Cannula 2.0 01/23/17 07:58 98.1 62 19 136/63 98 01/23/17 07:36 2.0 01/23/17 05:44 2.0 01/23/17 04:41 98.8 56 20 134/61 98 01/23/17 04:00 60 01/23/17 03:01 65 96 30 01/23/17 01:20 67 96 30 01/23/17 00:19 98.8 60 20 153/64 98 01/23/17 00:02 61 01/22/17 23:07 64 96 30 01/22/17 20:11 98.0 75 22 147/73 95 01/22/17 20:00 Nasal Cannula 2.0 01/22/17 20:00 70 01/22/17 18:34 2.0 01/22/17 16:00 79 01/22/17 15:43 97.4 70 20 151/62 96 Vital Signs Date Time Temp Pulse Resp B/P Pulse Ox O2 Delivery O2 Flow Rate FiO2 01/25/17 12:02 59 01/25/17 11:47 98.6 21 107/49 97 01/25/17 08:00 Nasal Cannula 2.0 01/24/17 04:50 30 Intake and Output 01/24/17 01/24/17 01/25/17 15:00 23:00 07:00 Intake Total 800 ml 500 ml Output Total 700 ml 600 ml Balance 100 ml -100 ml Exam Constitutional: alert, obese, oriented Psych: nl mood/affect, no complaints Respiratory: clear to auscultation, normal air movement Cardiovascular: nl pulses, regular rate and rhythm, No edema, No murmurs/extra sounds, No rub Gastrointestinal: bowel sounds, nl liver, spleen, non-tender, soft, No mass, No rebound or guarding Musculoskeletal: nl extremities to inspection Extremities: normal pulses, No clubbing, No cyanosis, No edema Neurological: [employer] II-XII intact, nl mental status, nl speech, nl strength Additional Comments Bedside Glucose - 72 Hours Test 01/22/17 17:46 01/22/17 21:53 01/23/17 02:26 01/23/17 07:52 Bedside Glucose 103mg/dL (70-220) 100mg/dL (70-220) 118mg/dL (70-220) 127mg/dL (70-220) Test 01/23/17 11:59 01/23/17 12:52 01/23/17 17:20 01/23/17 20:04 Bedside Glucose 73mg/dL (70-220) 73mg/dL (70-220) 83mg/dL (70-220) 102mg/dL (70-220) Test 01/23/17 22:38 01/24/17 08:07 01/24/17 11:59 01/24/17 17:08 Bedside Glucose 101mg/dL (70-220) 87mg/dL (70-220) 126mg/dL (70-220) 126mg/dL (70-220) Test 01/24/17 21:20 01/24/17 22:09 01/25/17 08:11 01/25/17 11:59 Bedside Glucose 85mg/dL (70-220) 80mg/dL (70-220) 117mg/dL (70-220) 185mg/dL (70-220) Results Result Diagram: 01/25/17 0555 01/25/17 0555 Results 24 hrs Laboratory Tests Test 01/24/17 17:08 01/24/17 21:20 01/24/17 22:09 01/25/17 05:55 Bedside Glucose 126 85 80 White Blood Count 11.3 H Red Blood Count 4.20 Hemoglobin 11.9 L Hematocrit 39.1 Mean Corpuscular Volume 93.1 Mean Corpuscular Hemoglobin 28.3 L Mean Corpuscular Hemoglobin Concent 30.4 L Red Cell Distribution Width 14.8 H Platelet Count 339 Mean Platelet Volume 9.5 Neutrophils % 75.2 Lymphocytes % 14.3 L Monocytes % 6.2 Eosinophils % 3.4 Basophils % 0.4 Nucleated Red Blood Cells % 0.0 Neutrophils # 8.5 H Lymphocytes # 1.6 Monocytes # 0.7 Eosinophils # 0.4 Basophils # 0.1 Nucleated Red Blood Cells # 0.0 Sodium Level 144 Potassium Level 4.0 Chloride Level 94 L Carbon Dioxide Level 43 *H Anion Gap 11 Blood Urea Nitrogen 46 H Creatinine 1.39 H Glucose Level 92 Calcium Level 9.4 Test 01/25/17 08:11 01/25/17 11:59 Bedside Glucose 117 185 Medications Medications Current Medications Ondansetron HCl (Zofran Inj) 4 mg Q6H PRN IV NAUSEA AND/OR VOMITING Last administered on 01/23/17 13:33; Admin Dose 4 MG; Start 01/19/17 at 02:00 Acetaminophen (Tylenol Supp) 650 mg Q4H PRN [place] PAIN LEVEL 1-3 OR FEVER; Start 01/19/17 at 02:00 Morphine Sulfate (morphine) 2 mg Q4H PRN IV PAIN LEVEL 7-10; Start 01/19/17 at 02:00 Lorazepam (Ativan) 0.5 mg Q4H PRN IV ANXIETY; Start 01/19/17 at 02:00 Miscellaneous Information 1 ea NOTE XX ; Start 01/19/17 at 06:30 Glucose (Glutose) 15 gm Q15M PRN PO DECREASED GLUCOSE; Start 01/19/17 at 06:30 Glucose (Glutose) 22.5 gm Q15M PRN PO DECREASED GLUCOSE; Start 01/19/17 at 06: 30 Dextrose (D50w Syringe) 25 ml Q15M PRN IV DECREASED GLUCOSE; Start 01/19/17 at 06:30 Dextrose (D50w Syringe) 50 ml Q15M PRN IV DECREASED GLUCOSE; Start 01/19/17 at 06:30 Glucagon (Glucagen) 1 mg Q15M PRN IM DECREASED GLUCOSE; Start 01/19/17 at 06: 30 Glucose (Glutose) 15 gm Q15M PRN BUCCAL DECREASED GLUCOSE; Start 01/19/17 at 06:30 Aspirin (Aspirin) 81 mg DAILY PO Last administered on 01/25/17 09:15; Admin Dose 81 MG; Start 01/19/17 at 09:00 Atorvastatin Calcium (Lipitor) 40 mg HS PO Last administered on 01/24/17 21:21 ; Admin Dose 40 MG; Start 01/19/17 at 21:00 Clonazepam (Klonopin) 0.25 mg DAILY PRN PO ANXIETY; Start 01/19/17 at 06:30 Metoprolol Succinate (Toprol Xl) 50 mg DAILY PO Last administered on 01/25/17 09:15; Admin Dose 50 MG; Start 01/19/17 at 09:00 Paroxetine HCl (Paxil) 10 mg DAILY PO Last administered on 01/25/17 09:15; Admin Dose 10 MG; Start 01/19/17 at 09:00 Trazodone HCl (Desyrel) 50 mg QHS PO Last administered on 01/24/17 21:21; Admin Dose 50 MG; Start 01/19/17 at 21:00 Diagnostic Test (Pha) (Accu-Chek) 1 ea 02 XX Last administered on 01/23/17 02 :00; Admin Dose 1 EA; Start 01/20/17 at 02:00 Insulin Human NPH (Humulin N) 60 unit DAILY@22 SC Last administered on 21:26; Admin Dose 60 UNIT; Start 01/19/17 at 22:00 Linagliptin (Tradjenta) 5 mg DAILY PO Last administered on 01/25/17 09:15; Admin Dose 5 MG; Start 01/20/17 at 09:00 Empaglifozin (Jardiance) 10 mg DAILY@08 PO Last administered on 01/25/17 09:15 ; Admin Dose 10 MG; Start 01/20/17 at 08:00 Mupirocin (Bactroban) 1 applic BID TOP Last administered on 01/25/17 09:23; Admin Dose 1 APPLIC; Start 01/20/17 at 11:00 Insulin Glargine (Lantus) 46 unit DAILY@08 SC Last administered on 01/25/17 09 :18; Admin Dose 46 UNIT; Start 01/22/17 at 08:00 Magnesium Hydroxide (Milk Of Mag) 30 ml BID PRN PO CONSTIPATION Last administered on 01/21/17 11:58; Admin Dose 30 ML; Start 01/21/17 at 10:30 Bisacodyl (Dulcolax) 10 mg DAILY PRN PO CONSTIPATION Last administered on 01/23 12:10; Admin Dose 10 MG; Start 01/21/17 at 10:30 Senna/Docusate Sodium (Senokot-S) 2 tab BID PO Last administered on 01/25/17 09:15; Admin Dose 2 TAB; Start 01/22/17 at 21:00 Bisacodyl (Dulcolax) 10 mg DAILY PRN PO CONSTIPATION; Start 01/22/17 at 22:00 Bisacodyl (Dulcolax Supp) 10 mg DAILY PRN [place] CONSTIPATION Last administered on 01/24/17 17:16; Admin Dose 10 MG; Start 01/23/17 at 15:30 Sodium Biphosphate/ Sodium Phosphate (Fleet Enema) 133 ml DAILY PRN [place] CONSTIPATION; Start 01/23/17 at 15:30 TONY KELLY MD Jan 25, 2017 13:47
--- NOTE | 2017-01-25 14:18 | CONS ---
Date/Time of Note Date/Time of Note DATE: 01/25/17 TIME: 14:16 Assessment/Plan Assessment/Plan Chief Complaint/Hosp Course IMPRESSION: 1. Congestive heart failure exacerbation, diastolic, acute on chronic.- 2. Abnormal electrocardiogram, assess for acute coronary syndrome. 3. Hypertension. 4. Dyslipidemia. 5. Diabetes mellitus. 6. Renal failure. 7. Fevers. 8. Obstructive sleep apnea. 9. Obesity. 10. Positive troponin-likely demand type 2 in setting in renal failure and resp distress Recc: -Tele -serial ecg's -Continue current Toprol/statin -start asa -Continue abx's and f/u cx data -Ongoing endocrine follow-up with adjustment of insulin therapy with currently well controled BS -CHange lasix to PO and hold evening dose -d/c planning from cardiac standpoint Problems: Consultation Date/Type/Reason Admit Date/Time Jan 19, 2017 at 01:40 Initial Consult Date 01/19/17 Type of Consultation: cardiology Reason for Consultation CHF Referring Provider: MADHU CAZARES Exam/Review of Systems Vital Signs Vitals Vital Signs Date Time Temp Pulse Resp B/P Pulse Ox O2 Delivery O2 Flow Rate FiO2 01/25/17 12:02 59 01/25/17 11:47 98.6 21 107/49 97 01/25/17 08:00 Nasal Cannula 2.0 01/24/17 04:50 30 Intake and Output 01/24/17 01/24/17 01/25/17 15:00 23:00 07:00 Intake Total 800 ml 500 ml Output Total 700 ml 600 ml Balance 100 ml -100 ml Exam Review of Systems: CONSTITUTIONAL: No fevers, chills. PULMONARY: No sob CARDIOVASCULAR: No chest pain/palpitations GASTROINTESTINAL: No nausea/vomiting. GENITOURINARY: No hematuria/dysuria. MUSCULOSKELETAL: No myagias/arthalgias. PSYCHIATRIC: The patient denies depression. NEUROLOGIC: No weakness Constitutional: alert, oriented Psych: no complaints Head: normocephalic ENMT: mucosa pink and moist Neck: jvd (9 cm water), supple Respiratory: diminished breath sounds (at bases/B) Cardiovascular: regular rate and rhythm Gastrointestinal: non-tender, soft Musculoskeletal: muscle tone (normal) Extremities: edema (none) Neurological: other (No focal deficits) Results Result Diagram: 01/25/17 0555 01/25/17 0555 Results 24 hrs Laboratory Tests Test 01/24/17 17:08 01/24/17 21:20 01/24/17 22:09 01/25/17 05:55 Bedside Glucose 126 85 80 White Blood Count 11.3 H Red Blood Count 4.20 Hemoglobin 11.9 L Hematocrit 39.1 Mean Corpuscular Volume 93.1 Mean Corpuscular Hemoglobin 28.3 L Mean Corpuscular Hemoglobin Concent 30.4 L Red Cell Distribution Width 14.8 H Platelet Count 339 Mean Platelet Volume 9.5 Neutrophils % 75.2 Lymphocytes % 14.3 L Monocytes % 6.2 Eosinophils % 3.4 Basophils % 0.4 Nucleated Red Blood Cells % 0.0 Neutrophils # 8.5 H Lymphocytes # 1.6 Monocytes # 0.7 Eosinophils # 0.4 Basophils # 0.1 Nucleated Red Blood Cells # 0.0 Sodium Level 144 Potassium Level 4.0 Chloride Level 94 L Carbon Dioxide Level 43 *H Anion Gap 11 Blood Urea Nitrogen 46 H Creatinine 1.39 H Glucose Level 92 Calcium Level 9.4 Test 01/25/17 08:11 01/25/17 11:59 Bedside Glucose 117 185 Medications Medications Current Medications Ondansetron HCl (Zofran Inj) 4 mg Q6H PRN IV NAUSEA AND/OR VOMITING Last administered on 01/23/17t 13:33; Admin Dose 4 MG; Start 01/19/17 at 02:00 Acetaminophen (Tylenol Supp) 650 mg Q4H PRN [place] PAIN LEVEL 1-3 OR FEVER; Start 01/19/17 at 02:00 Morphine Sulfate (morphine) 2 mg Q4H PRN IV PAIN LEVEL 7-10; Start 01/19/17 at 02:00 Lorazepam (Ativan) 0.5 mg Q4H PRN IV ANXIETY; Start 01/19/17 at 02:00 Miscellaneous Information 1 ea NOTE XX ; Start 01/19/17 at 06:30 Glucose (Glutose) 15 gm Q15M PRN PO DECREASED GLUCOSE; Start 01/19/17 at 06:30 Glucose (Glutose) 22.5 gm Q15M PRN PO DECREASED GLUCOSE; Start 01/19/17 at 06: 30 Dextrose (D50w Syringe) 25 ml Q15M PRN IV DECREASED GLUCOSE; Start 01/19/17 at 06:30 Dextrose (D50w Syringe) 50 ml Q15M PRN IV DECREASED GLUCOSE; Start 01/19/17 at 06:30 Glucagon (Glucagen) 1 mg Q15M PRN IM DECREASED GLUCOSE; Start 01/19/17 at 06: 30 Glucose (Glutose) 15 gm Q15M PRN BUCCAL DECREASED GLUCOSE; Start 01/19/17 at 06:30 Aspirin (Aspirin) 81 mg DAILY PO Last administered on 01/25/17 09:15; Admin Dose 81 MG; Start 01/19/17 at 09:00 Atorvastatin Calcium (Lipitor) 40 mg HS PO Last administered on 01/24/17 21:21 ; Admin Dose 40 MG; Start 01/19/17 at 21:00 Clonazepam (Klonopin) 0.25 mg DAILY PRN PO ANXIETY; Start 01/19/17 at 06:30 Metoprolol Succinate (Toprol Xl) 50 mg DAILY PO Last administered on 01/25/17 09:15; Admin Dose 50 MG; Start 01/19/17 at 09:00 Paroxetine HCl (Paxil) 10 mg DAILY PO Last administered on 01/25/17 09:15; Admin Dose 10 MG; Start 01/19/17 at 09:00 Trazodone HCl (Desyrel) 50 mg QHS PO Last administered on 01/24/17 21:21; Admin Dose 50 MG; Start 01/19/17 at 21:00 Diagnostic Test (Pha) (Accu-Chek) 1 ea 02 XX Last administered on 01/23/17 02 :00; Admin Dose 1 EA; Start 01/20/17 at 02:00 Insulin Human NPH (Humulin N) 60 unit DAILY@22 SC Last administered on 21:26; Admin Dose 60 UNIT; Start 01/19/17 at 22:00 Linagliptin (Tradjenta) 5 mg DAILY PO Last administered on 01/25/17 09:15; Admin Dose 5 MG; Start 01/20/17 at 09:00 Empaglifozin (Jardiance) 10 mg DAILY@08 PO Last administered on 01/25/17 09:15 ; Admin Dose 10 MG; Start 01/20/17 at 08:00 Mupirocin (Bactroban) 1 applic BID TOP Last administered on 01/25/17 09:23; Admin Dose 1 APPLIC; Start 01/20/17 at 11:00 Insulin Glargine (Lantus) 46 unit DAILY@08 SC Last administered on 01/25/17 09 :18; Admin Dose 46 UNIT; Start 01/22/17 at 08:00 Magnesium Hydroxide (Milk Of Mag) 30 ml BID PRN PO CONSTIPATION Last administered on 01/21/17 11:58; Admin Dose 30 ML; Start 01/21/17 at 10:30 Bisacodyl (Dulcolax) 10 mg DAILY PRN PO CONSTIPATION Last administered on 01/23 12:10; Admin Dose 10 MG; Start 01/21/17 at 10:30 Senna/Docusate Sodium (Senokot-S) 2 tab BID PO Last administered on 01/25/17 09:15; Admin Dose 2 TAB; Start 01/22/17 at 21:00 Bisacodyl (Dulcolax) 10 mg DAILY PRN PO CONSTIPATION; Start 01/22/17 at 22:00 Bisacodyl (Dulcolax Supp) 10 mg DAILY PRN [place] CONSTIPATION Last administered on 01/24/17 17:16; Admin Dose 10 MG; Start 01/23/17 at 15:30 Sodium Biphosphate/ Sodium Phosphate (Fleet Enema) 133 ml DAILY PRN [place] CONSTIPATION; Start 01/23/17 at 15:30 TERRIE DUNN 2, 2017 14:18
--- NOTE | 2017-01-25 18:33 | CONS ---
Date/Time of Note Date/Time of Note DATE: 01/25/17 TIME: 18:26 Assessment/Plan Assessment/Plan Additional Assessment/Plan 1. acute kidney injury with metabolic alkalosis- overdiuresis 2. acute on chronic CHF exacerbation 3. 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 HTN 5. DM II Plan : stop IV lasix, consider switching it to PO lasix if neeed renal US Urine studies no need for acetazolamide today, if HCo3 trending up tomorrow then we will give it will follow up Consultation Date/Type/Reason Admit Date/Time Jan 19, 2017 at 01:40 Date of Consultation: Jan 25, 2017 Type of Consultation: NEPHROLOGY Reason for Consultation acute kidney injury, fluid overload, pul edema, Hypokalemia, Metabolic alkalosis Referring Provider: OLIVIA KAPLAN MD Hx of Present Illness 76-year-old female with a history of chronic kidney disease, diabetes mellitus with poorly controlled blood sugars, diastolic congestive heart failure, hypertension, obesity, obstructive sleep apnea who had recently been admitted for congestive heart failure exacerbation and was discharged and now returns with recurrent shortness of breath and stating that she had passed out. Upon arrival in the emergency department, temperature 97.6, blood pressure elevated at 166/75, pulse 113, respiratory 45, saturating 93%. The patient's labs notable for white count 21.1, hemoglobin 13.6, platelet count of 434, a sodium of 145, potassium 4.2, creatinine 1.67, BUN of 32, AST 49, ALT 43. BNP 575. INR 0.86. UA negative. The patient's chest x-ray revealed cardiomegaly, pulmonary vascular congestion, bilateral interstitial infiltrates. The patient' s electrocardiogram revealed normal sinus rhythm, rate of 72, right axis deviation, nonspecific ST-T abnormalities. The patient was subsequently treated with Lasix, aspirin, vanc, cefepime, required BiPAP pt has been treated with IV lasix 40mg BID for diuresis and Today noted to have Cr 1.39, HCo3 trending up and renal has been consulted for it Constitutional: improved, no complaints Eyes: no complaints ENT: no complaints Respiratory: no complaints Cardiovascular: no complaints Gastrointestinal: no complaints Genitourinary: no complaints Musculoskeletal: no complaints Neurologic: no complaints Psychological: no complaints Past Medical History Medical History: congestive heart failure, coronary artery disease, diabetes, high cholesterol, hypertension, renal disease, other (glaucoma w/ B vision loss , anxiety, depression) Past Surgical History Past Surgical Hx: other (Ovarian cystectomy, BECKY, laser eye surgery) Social History Alcohol Use: none Smoking Status: Never smoker Drug Use: none Exam/Review of Systems Vital Signs Vitals Vital Signs Date Time Temp Pulse Resp B/P Pulse Ox O2 Delivery O2 Flow Rate FiO2 01/25/17 16:02 60 01/25/17 15:58 99.3 20 120/60 96 01/25/17 15:15 2.0 01/25/17 08:00 Nasal Cannula 01/24/17 04:50 30 Intake and Output 01/24/17 01/24/17 01/25/17 15:00 23:00 07:00 Intake Total 800 ml 500 ml Output Total 700 ml 600 ml Balance 100 ml -100 ml Exam Constitutional: alert Head: normocephalic Eyes: nl conjunctiva Neck: non-tender, supple Respiratory: crackles/rales, diminished breath sounds Cardiovascular: nl pulses, regular rate and rhythm Gastrointestinal: non-tender, soft Musculoskeletal: joint tenderness, muscle weakness, nl extremities to inspection, nl gait and stance, swelling 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, nl mental status, nl speech, nl strength Results Result Diagram: 01/25/17 0555 01/25/17 0555 Results 24 hrs Laboratory Tests Test 01/24/17 21:20 01/24/17 22:09 01/25/17 05:55 01/25/17 08:11 Bedside Glucose 85 80 117 White Blood Count 11.3 H Red Blood Count 4.20 Hemoglobin 11.9 L Hematocrit 39.1 Mean Corpuscular Volume 93.1 Mean Corpuscular Hemoglobin 28.3 L Mean Corpuscular Hemoglobin Concent 30.4 L Red Cell Distribution Width 14.8 H Platelet Count 339 Mean Platelet Volume 9.5 Neutrophils % 75.2 Lymphocytes % 14.3 L Monocytes % 6.2 Eosinophils % 3.4 Basophils % 0.4 Nucleated Red Blood Cells % 0.0 Neutrophils # 8.5 H Lymphocytes # 1.6 Monocytes # 0.7 Eosinophils # 0.4 Basophils # 0.1 Nucleated Red Blood Cells # 0.0 Sodium Level 144 Potassium Level 4.0 Chloride Level 94 L Carbon Dioxide Level 43 *H Anion Gap 11 Blood Urea Nitrogen 46 H Creatinine 1.39 H Glucose Level 92 Calcium Level 9.4 Test 01/25/17 11:59 01/25/17 17:29 Bedside Glucose 185 76 Medications Medications Current Medications Ondansetron HCl (Zofran Inj) 4 mg Q6H PRN IV NAUSEA AND/OR VOMITING Last administered on 01/23/17 13:33; Admin Dose 4 MG; Start 01/19/17 at 02:00 Acetaminophen (Tylenol Supp) 650 mg Q4H PRN [place] PAIN LEVEL 1-3 OR FEVER; Start 01/19/17 at 02:00 Morphine Sulfate (morphine) 2 mg Q4H PRN IV PAIN LEVEL 7-10; Start 01/19/17 at 02:00 Lorazepam (Ativan) 0.5 mg Q4H PRN IV ANXIETY; Start 01/19/17 at 02:00 Miscellaneous Information 1 ea NOTE XX ; Start 01/19/17 at 06:30 Glucose (Glutose) 15 gm Q15M PRN PO DECREASED GLUCOSE; Start 01/19/17 at 06:30 Glucose (Glutose) 22.5 gm Q15M PRN PO DECREASED GLUCOSE; Start 01/19/17 at 06: 30 Dextrose (D50w Syringe) 25 ml Q15M PRN IV DECREASED GLUCOSE; Start 01/19/17 at 06:30 Dextrose (D50w Syringe) 50 ml Q15M PRN IV DECREASED GLUCOSE; Start 01/19/17 at 06:30 Glucagon (Glucagen) 1 mg Q15M PRN IM DECREASED GLUCOSE; Start 01/19/17 at 06: 30 Glucose (Glutose) 15 gm Q15M PRN BUCCAL DECREASED GLUCOSE; Start 01/19/17 at 06:30 Aspirin (Aspirin) 81 mg DAILY PO Last administered on 01/25/17 09:15; Admin Dose 81 MG; Start 01/19/17 at 09:00 Atorvastatin Calcium (Lipitor) 40 mg HS PO Last administered on 01/24/17 21:21 ; Admin Dose 40 MG; Start 01/19/17 at 21:00 Clonazepam (Klonopin) 0.25 mg DAILY PRN PO ANXIETY; Start 01/19/17 at 06:30 Metoprolol Succinate (Toprol Xl) 50 mg DAILY PO Last administered on 01/25/17 09:15; Admin Dose 50 MG; Start 01/19/17 at 09:00 Paroxetine HCl (Paxil) 10 mg DAILY PO Last administered on 01/25/17 09:15; Admin Dose 10 MG; Start 01/19/17 at 09:00 Trazodone HCl (Desyrel) 50 mg QHS PO Last administered on 01/24/17 21:21; Admin Dose 50 MG; Start 01/19/17 at 21:00 Diagnostic Test (Pha) (Accu-Chek) 1 ea 02 XX Last administered on 01/23/17 02 :00; Admin Dose 1 EA; Start 01/20/17 at 02:00 Insulin Human NPH (Humulin N) 60 unit DAILY@22 SC Last administered on 21:26; Admin Dose 60 UNIT; Start 01/19/17 at 22:00 Linagliptin (Tradjenta) 5 mg DAILY PO Last administered on 01/25/17 09:15; Admin Dose 5 MG; Start 01/20/17 at 09:00 Empaglifozin (Jardiance) 10 mg DAILY@08 PO Last administered on 01/25/17 09:15 ; Admin Dose 10 MG; Start 01/20/17 at 08:00 Mupirocin (Bactroban) 1 applic BID TOP Last administered on 01/25/17 09:23; Admin Dose 1 APPLIC; Start 01/20/17 at 11:00 Insulin Glargine (Lantus) 46 unit DAILY@08 SC Last administered on 01/25/17 09 :18; Admin Dose 46 UNIT; Start 01/22/17 at 08:00 Magnesium Hydroxide (Milk Of Mag) 30 ml BID PRN PO CONSTIPATION Last administered on 01/21/17 11:58; Admin Dose 30 ML; Start 01/21/17 at 10:30 Bisacodyl (Dulcolax) 10 mg DAILY PRN PO CONSTIPATION Last administered on 01/23 12:10; Admin Dose 10 MG; Start 01/21/17 at 10:30 Senna/Docusate Sodium (Senokot-S) 2 tab BID PO Last administered on 01/25/17 09:15; Admin Dose 2 TAB; Start 01/22/17 at 21:00 Bisacodyl (Dulcolax) 10 mg DAILY PRN PO CONSTIPATION; Start 01/22/17 at 22:00 Bisacodyl (Dulcolax Supp) 10 mg DAILY PRN [place] CONSTIPATION Last administered on 01/24/17t 17:16; Admin Dose 10 MG; Start 01/23/17 at 15:30 Sodium Biphosphate/ Sodium Phosphate (Fleet Enema) 133 ml DAILY PRN [place] CONSTIPATION; Start 01/23/17 at 15:30 Furosemide (Lasix) 40 mg DAILY PO ; Start 01/26/17 at 09:00 AWILDA LOU MD Jan 25, 2017 18:33
[2017-01-25] MEDS: traZODone 50 MG TAB PO SCH (20:31)
[2017-01-25] MEDS: ATORVASTATIN 40 MG TAB PO SCH (20:31)
--- NOTE | 2017-01-25 20:48 | RADRPT ---
PROCEDURE: Renal US. CLINICAL INDICATION: Acute and chronic renal failure. TECHNIQUE: Multiple sonographic images of the kidneys and urinary bladder were obtained. The imag es were reviewed on a PACS workstation. COMPARISON: No prior studies are available for comparison. FINDINGS: The right kidney measures 12.1 x 4.5 x 4.6 cm. The left kidney measures 12.5 x 4.8 x 4.5 cm. There is no renal mass. There is no hydronephrosis. There is no renal calculus. Renal parenchymal thickness is normal bilaterally. Echogenicity is normal bilaterally. The perirenal regions are normal with no fluid collection or mass. There is a Thakkar catheter in the bladder. IMPRESSION: 1. Normal kidneys with no hydronephrosis. 2. Thakkar catheter in the bladder. 3. Otherwise unremarkable study. RPTAT: QQ .Uri Ley MD, Date Time Electronically viewed and signed by .Uri Ley MD, on 01/25/2017 20:48 .R/
--- NOTE | 2017-01-25 20:48 | RADRPT ---
PROCEDURE: Renal US. CLINICAL INDICATION: Acute and chronic renal failure. TECHNIQUE: Multiple sonographic images of the kidneys and urinary bladder were obtained. The imag es were reviewed on a PACS workstation. COMPARISON: No prior studies are available for comparison. FINDINGS: The right kidney measures 12.1 x 4.5 x 4.6 cm. The left kidney measures 12.5 x 4.8 x 4.5 cm. There is no renal mass. There is no hydronephrosis. There is no renal calculus. Renal parenchymal thickness is normal bilaterally. Echogenicity is normal bilaterally. The perirenal regions are normal with no fluid collection or mass. There is a Thakkar catheter in the bladder. IMPRESSION: 1. Normal kidneys with no hydronephrosis. 2. Thakkar catheter in the bladder. 3. Otherwise unremarkable study. RPTAT: QQ .Uir Ley MD, Date Time Electronically viewed and signed by .Uri Ley MD, on 01/25/2017 20:48 .R/
[2017-01-25] MEDS: NPH, HUMAN INSULIN ISOPHANE 3ML VIAL SC SCH (21:56)
[2017-01-26] VITALS (15 sets, daily range): BP systolic 112–174; BP diastolic 47–70; PULSE 57–80; RESP 16–65
[2017-01-26] MEDS: ACCU-CHEK XX SCH (02:00)
[2017-01-26] MEDS: PAROXETINE 10 MG TAB PO SCH (09:02)
[2017-01-26] MEDS: ASPIRIN 81 MG TAB PO SCH (09:02)
[2017-01-26] MEDS: SENNA/DOCUSATE NA (8.6MG/50MG) TAB PO SCH ×2 (09:02→20:47)
[2017-01-26] MEDS: LINAGLIPTIN 5 MG TABLET PO SCH (09:02)
[2017-01-26] MEDS: EMPAGLIFLOZIN 10 MG TABLET PO SCH (09:02)
[2017-01-26] MEDS: INSULIN ASPART [NOVOLOG] 3 ML PEN SC SCH ×7 (09:04→20:47)
[2017-01-26] MEDS: FUROSEMIDE 40 MG TAB PO SCH (09:07)
[2017-01-26] MEDS: METOPROLOL (XL) 50 MG TAB PO SCH (09:07)
[2017-01-26] MEDS: MUPIROCIN 2% 22 GM OINT TOP SCH ×2 (09:12→20:47)
[2017-01-26] MEDS: INSULIN GLARGINE [LANtus] 3 ML PEN SC SCH (09:21)
--- NOTE | 2017-01-26 11:49 | RADRPT ---
PROCEDURE: XR Chest. CLINICAL INDICATION: Shortness of breath. TECHNIQUE: Single frontal view. COMPARISON: 01/22/2017. FINDINGS: The lungs are clear. The heart is enlarged. There is calcification in the aorta consistent with atherosclerosis. There is no pleural effusion. There is no pneumothorax. IMPRESSION: 1. Cardiomegaly and atherosclerosis. 2. Otherwise normal chest x-ray. RPTAT: QQ .Uri Ley MD, MD Date Time Electronically viewed and signed by .Uri Ley MD, MD on 01/26/2017 11:49 .R/
--- NOTE | 2017-01-26 11:53 | PN ---
Date/Time of Note Date/Time of Note DATE: 01/26/17 TIME: 11:50 Assessment/Plan VTE Prophylaxis VTE Prophylaxis Intervention: SCD's Lines/Catheters IV [facility] Type [facility] Saline Lock Urinary Cath still in place: No Assessment/Plan Chief Complaint/Hosp Course Patient was slightly increased leukocytosis, complains of dysuria, will obtain urine and urine culture, DC Thakkar, monitor postvoid residual. Patient denies shortness of breath denies chest pain. Assessment/Plan - ARF 2 to pulm edema, resolving. Dr. Bravo is following in pulmonology consultation. - Diastolic acute on chronic congestive heart failure exacerbation. Continue Lasix. Dr. Cota is following in cardiology consultation. Continue to monitor electrolytes. - Positive troponin. - Hypertension. - Diabetes mellitus type 2 with hemoglobin A1c 9.2. Continue Lantus and pre- meal NovoLog as well as NovoLog per mild algorithm sliding scale. Dr. Bartholomew is following in endocrinology consultation. - Acute on chronic kidney disease. Continue to monitor BUN and creatinine. - Possible sleep apnea, continue BiPAP at night. - Hyperlipidemia. Continue statin. - Morbid obesity Further recommendations based on clinical course. Plan of care discussed with Dr. Garza. Problems: Exam/Review of Systems Vital Signs Vitals Vital Signs Date Time Temp Pulse Resp B/P Pulse Ox O2 Delivery O2 Flow Rate FiO2 01/26/17 11:48 99.0 65 65 133/55 94 01/26/17 08:00 Nasal Cannula 5.0 01/26/17 05:12 30 Intake and Output 01/25/17 01/25/17 01/26/17 15:00 23:00 07:00 Intake Total 800 ml 550 ml Output Total 1200 ml 1200 ml Balance -400 ml -650 ml Exam Constitutional: alert, oriented Head: normocephalic Neck: supple Respiratory: Slightly diminished breath sounds Cardiovascular: nl pulses, regular rate and rhythm Gastrointestinal: non-tender, soft Extremities: normal pulses Neurological: nl mental status Results Result Diagram: 01/26/17 0709 01/26/17 0709 Results 24 hrs Laboratory Tests Test 01/25/17 11:59 01/25/17 17:29 01/25/17 18:45 01/25/17 20:30 Bedside Glucose 185 76 127 Urine Eosinophils % 1.0 Urine Random Creatinine 72.21 Urine Random Sodium 44 Urine Protein/Creatinine Ratio 0.63 Urine Total Protein 46.0 H Test 01/26/17 07:09 01/26/17 08:32 01/26/17 11:32 White Blood Count 12.3 H Red Blood Count 3.98 L Hemoglobin 11.1 L Hematocrit 36.3 L Mean Corpuscular Volume 91.2 Mean Corpuscular Hemoglobin 27.9 L Mean Corpuscular Hemoglobin Concent 30.6 L Red Cell Distribution Width 14.7 H Platelet Count 323 Mean Platelet Volume 9.5 Neutrophils % 77.7 H Lymphocytes % 13.1 L Monocytes % 5.5 Eosinophils % 2.7 Basophils % 0.3 Nucleated Red Blood Cells % 0.0 Neutrophils # 9.5 H Lymphocytes # 1.6 Monocytes # 0.7 Eosinophils # 0.3 Basophils # 0.0 Nucleated Red Blood Cells # 0.0 Sodium Level 141 Potassium Level 4.0 Chloride Level 93 L Carbon Dioxide Level 38 H Anion Gap 14 Blood Urea Nitrogen 52 H Creatinine 1.34 H Glucose Level 282 #H Uric Acid 9.1 H Calcium Level 9.0 Creatine Kinase 57 B-Type Natriuretic Peptide 272 H Bedside Glucose 283 H 296 H Medications Medications Current Medications Ondansetron HCl (Zofran Inj) 4 mg Q6H PRN IV NAUSEA AND/OR VOMITING Last administered on 01/23/17t 13:33; Admin Dose 4 MG; Start 01/19/17 at 02:00 Acetaminophen (Tylenol Supp) 650 mg Q4H PRN [place] PAIN LEVEL 1-3 OR FEVER; Start 01/19/17 at 02:00 Morphine Sulfate (morphine) 2 mg Q4H PRN IV PAIN LEVEL 7-10; Start 01/19/17 at 02:00 Lorazepam (Ativan) 0.5 mg Q4H PRN IV ANXIETY; Start 01/19/17 at 02:00 Miscellaneous Information 1 ea NOTE XX ; Start 01/19/17 at 06:30 Glucose (Glutose) 15 gm Q15M PRN PO DECREASED GLUCOSE; Start 01/19/17 at 06:30 Glucose (Glutose) 22.5 gm Q15M PRN PO DECREASED GLUCOSE; Start 01/19/17 at 06: 30 Dextrose (D50w Syringe) 25 ml Q15M PRN IV DECREASED GLUCOSE; Start 01/19/17 at 06:30 Dextrose (D50w Syringe) 50 ml Q15M PRN IV DECREASED GLUCOSE; Start 01/19/17 at 06:30 Glucagon (Glucagen) 1 mg Q15M PRN IM DECREASED GLUCOSE; Start 01/19/17 at 06: 30 Glucose (Glutose) 15 gm Q15M PRN BUCCAL DECREASED GLUCOSE; Start 01/19/17 at 06:30 Aspirin (Aspirin) 81 mg DAILY PO Last administered on 01/26/17 09:02; Admin Dose 81 MG; Start 01/19/17 at 09:00 Atorvastatin Calcium (Lipitor) 40 mg HS PO Last administered on 01/25/17 20:31 ; Admin Dose 40 MG; Start 01/19/17 at 21:00 Clonazepam (Klonopin) 0.25 mg DAILY PRN PO ANXIETY; Start 01/19/17 at 06:30 Metoprolol Succinate (Toprol Xl) 50 mg DAILY PO Last administered on 01/26/17 09:07; Admin Dose 50 MG; Start 01/19/17 at 09:00 Paroxetine HCl (Paxil) 10 mg DAILY PO Last administered on 01/26/17 09:02; Admin Dose 10 MG; Start 01/19/17 at 09:00 Trazodone HCl (Desyrel) 50 mg QHS PO Last administered on 01/25/17 20:31; Admin Dose 50 MG; Start 01/19/17 at 21:00 Diagnostic Test (Pha) (Accu-Chek) 1 ea 02 XX Last administered on 01/23/17 02 :00; Admin Dose 1 EA; Start 01/20/17 at 02:00 Insulin Human NPH (Humulin N) 60 unit DAILY@22 SC Last administered on 21:26; Admin Dose 60 UNIT; Start 01/19/17 at 22:00 Linagliptin (Tradjenta) 5 mg DAILY PO Last administered on 01/26/17 09:02; Admin Dose 5 MG; Start 01/20/17 at 09:00 Empaglifozin (Jardiance) 10 mg DAILY@08 PO Last administered on 01/26/17 09:02 ; Admin Dose 10 MG; Start 01/20/17 at 08:00 Mupirocin (Bactroban) 1 applic BID TOP Last administered on 01/26/17 09:12; Admin Dose 1 APPLIC; Start 01/20/17 at 11:00 Insulin Glargine (Lantus) 46 unit DAILY@08 SC Last administered on 01/26/17 09 :21; Admin Dose 46 UNIT; Start 01/22/17 at 08:00 Magnesium Hydroxide (Milk Of Mag) 30 ml BID PRN PO CONSTIPATION Last administered on 01/21/17 11:58; Admin Dose 30 ML; Start 01/21/17 at 10:30 Bisacodyl (Dulcolax) 10 mg DAILY PRN PO CONSTIPATION Last administered on 01/23 12:10; Admin Dose 10 MG; Start 01/21/17 at 10:30 Senna/Docusate Sodium (Senokot-S) 2 tab BID PO Last administered on 01/26/17 09:02; Admin Dose 2 TAB; Start 01/22/17 at 21:00 Bisacodyl (Dulcolax) 10 mg DAILY PRN PO CONSTIPATION; Start 01/22/17 at 22:00 Bisacodyl (Dulcolax Supp) 10 mg DAILY PRN [place] CONSTIPATION Last administered on 01/24/17 17:16; Admin Dose 10 MG; Start 01/23/17 at 15:30 Sodium Biphosphate/ Sodium Phosphate (Fleet Enema) 133 ml DAILY PRN [place] CONSTIPATION; Start 01/23/17 at 15:30 Furosemide (Lasix) 40 mg DAILY PO Last administered on 01/26/17 09:07; Admin Dose 40 MG; Start 01/26/17 at 09:00 MADHU CAZARES Jan 26, 2017 11:53
--- NOTE | 2017-01-26 12:43 | CONS ---
Date/Time of Note Date/Time of Note DATE: 01/26/17 TIME: 12:41 Assessment/Plan Assessment/Plan Chief Complaint/Hosp Course 76-year-old female with a history of chronic kidney disease, diabetes mellitus with poorly controlled blood sugars, diastolic congestive heart failure, hypertension, obesity, obstructive sleep apnea who had recently been admitted for congestive heart failure exacerbation and was discharged and now returns with recurrent shortness of breath and stating that she had passed out. Upon arrival in the emergency department, temperature 97.6, blood pressure elevated at 166/75, pulse 113, respiratory 45, saturating 93%. The patient's labs notable for white count 21.1, hemoglobin 13.6, platelet count of 434, a sodium of 145, potassium 4.2, creatinine 1.67, BUN of 32, AST 49, ALT 43. BNP 575. INR 0.86. UA negative. The patient's chest x-ray revealed cardiomegaly, pulmonary vascular congestion, bilateral interstitial infiltrates. The patient' s electrocardiogram revealed normal sinus rhythm, rate of 72, right axis deviation, nonspecific ST-T abnormalities. The patient was subsequently treated with Lasix, aspirin, vanc, cefepime, required BiPAP pt has been treated with IV lasix 40mg BID for diuresis and Today noted to have Cr 1.39, HCo3 trending up and renal has been consulted for it Problems: Additional Assessment/Plan 1. acute kidney injury with metabolic alkalosis- overdiuresis 2. acute on chronic CHF exacerbation 3. 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 HTN 5. DM II Plan : Lasix switched to PO yesterday, HCo3 improving, Cr stable compared to yesteday renal US normal Urine studies Unremarkable uric acid high possibly due to metabolic syndrome, will start allopurinol 100mg po daily no need for acetazolamide today will follow up Consultation Date/Type/Reason Admit Date/Time Jan 19, 2017 at 01:40 Initial Consult Date 01/25/17 Type of Consultation: NEPHROLOGY Referring Provider: OLIVIA KAPLAN MD Exam/Review of Systems Vital Signs Vitals Vital Signs Date Time Temp Pulse Resp B/P Pulse Ox O2 Delivery O2 Flow Rate FiO2 01/26/17 12:38 66 01/26/17 11:48 99.0 65 133/55 94 01/26/17 08:00 Nasal Cannula 5.0 01/26/17 05:12 30 Intake and Output 01/25/17 01/25/17 01/26/17 15:00 23:00 07:00 Intake Total 800 ml 550 ml Output Total 1200 ml 1200 ml Balance -400 ml -650 ml Exam Constitutional: alert Head: normocephalic Eyes: nl conjunctiva Neck: non-tender, supple Respiratory: crackles/rales, diminished breath sounds Cardiovascular: nl pulses, regular rate and rhythm Gastrointestinal: non-tender, soft Musculoskeletal: joint tenderness, muscle weakness, nl extremities to inspection, nl gait and stance, swelling 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, nl mental status, nl speech, nl strength Results Result Diagram: 01/26/1770801/26/17 0709 Results 24 hrs Laboratory Tests Test 01/25/17 17:29 01/25/17 18:45 01/25/17 20:30 01/26/17 07:09 Bedside Glucose 76 127 Urine Eosinophils % 1.0 Urine Random Creatinine 72.21 Urine Random Sodium 44 Urine Protein/Creatinine Ratio 0.63 Urine Total Protein 46.0 H White Blood Count 12.3 H Red Blood Count 3.98 L Hemoglobin 11.1 L Hematocrit 36.3 L Mean Corpuscular Volume 91.2 Mean Corpuscular Hemoglobin 27.9 L Mean Corpuscular Hemoglobin Concent 30.6 L Red Cell Distribution Width 14.7 H Platelet Count 323 Mean Platelet Volume 9.5 Neutrophils % 77.7 H Lymphocytes % 13.1 L Monocytes % 5.5 Eosinophils % 2.7 Basophils % 0.3 Nucleated Red Blood Cells % 0.0 Neutrophils # 9.5 H Lymphocytes # 1.6 Monocytes # 0.7 Eosinophils # 0.3 Basophils # 0.0 Nucleated Red Blood Cells # 0.0 Sodium Level 141 Potassium Level 4.0 Chloride Level 93 L Carbon Dioxide Level 38 H Anion Gap 14 Blood Urea Nitrogen 52 H Creatinine 1.34 H Glucose Level 282 #H Uric Acid 9.1 H Calcium Level 9.0 Creatine Kinase 57 B-Type Natriuretic Peptide 272 H Test 01/26/17 08:32 01/26/17 11:32 Bedside Glucose 283 H 296 H Medications Medications Current Medications Ondansetron HCl (Zofran Inj) 4 mg Q6H PRN IV NAUSEA AND/OR VOMITING Last administered on 01/23/17t 13:33; Admin Dose 4 MG; Start 01/19/17 at 02:00 Acetaminophen (Tylenol Supp) 650 mg Q4H PRN [place] PAIN LEVEL 1-3 OR FEVER; Start 01/19/17 at 02:00 Morphine Sulfate (morphine) 2 mg Q4H PRN IV PAIN LEVEL 7-10; Start 01/19/17 at 02:00 Lorazepam (Ativan) 0.5 mg Q4H PRN IV ANXIETY; Start 01/19/17 at 02:00 Miscellaneous Information 1 ea NOTE XX ; Start 01/19/17 at 06:30 Glucose (Glutose) 15 gm Q15M PRN PO DECREASED GLUCOSE; Start 01/19/17 at 06:30 Glucose (Glutose) 22.5 gm Q15M PRN PO DECREASED GLUCOSE; Start 01/19/17 at 06: 30 Dextrose (D50w Syringe) 25 ml Q15M PRN IV DECREASED GLUCOSE; Start 01/19/17 at 06:30 Dextrose (D50w Syringe) 50 ml Q15M PRN IV DECREASED GLUCOSE; Start 01/19/17 at 06:30 Glucagon (Glucagen) 1 mg Q15M PRN IM DECREASED GLUCOSE; Start 01/19/17 at 06: 30 Glucose (Glutose) 15 gm Q15M PRN BUCCAL DECREASED GLUCOSE; Start 01/19/17 at 06:30 Aspirin (Aspirin) 81 mg DAILY PO Last administered on 01/26/17 09:02; Admin Dose 81 MG; Start 01/19/17 at 09:00 Atorvastatin Calcium (Lipitor) 40 mg HS PO Last administered on 01/25/17 20:31 ; Admin Dose 40 MG; Start 01/19/17 at 21:00 Clonazepam (Klonopin) 0.25 mg DAILY PRN PO ANXIETY; Start 01/19/17 at 06:30 Metoprolol Succinate (Toprol Xl) 50 mg DAILY PO Last administered on 01/26/17 09:07; Admin Dose 50 MG; Start 01/19/17 at 09:00 Paroxetine HCl (Paxil) 10 mg DAILY PO Last administered on 01/26/17 09:02; Admin Dose 10 MG; Start 01/19/17 at 09:00 Trazodone HCl (Desyrel) 50 mg QHS PO Last administered on 01/25/17 20:31; Admin Dose 50 MG; Start 01/19/17 at 21:00 Diagnostic Test (Pha) (Accu-Chek) 1 ea 02 XX Last administered on 01/23/17 02 :00; Admin Dose 1 EA; Start 01/20/17 at 02:00 Insulin Human NPH (Humulin N) 60 unit DAILY@22 SC Last administered on 21:26; Admin Dose 60 UNIT; Start 01/19/17 at 22:00 Linagliptin (Tradjenta) 5 mg DAILY PO Last administered on 01/26/17 09:02; Admin Dose 5 MG; Start 01/20/17 at 09:00 Empaglifozin (Jardiance) 10 mg DAILY@08 PO Last administered on 01/26/17 09:02 ; Admin Dose 10 MG; Start 01/20/17 at 08:00 Mupirocin (Bactroban) 1 applic BID TOP Last administered on 01/26/17 09:12; Admin Dose 1 APPLIC; Start 01/20/17 at 11:00 Insulin Glargine (Lantus) 46 unit DAILY@08 SC Last administered on 01/26/17 09 :21; Admin Dose 46 UNIT; Start 01/22/17 at 08:00 Magnesium Hydroxide (Milk Of Mag) 30 ml BID PRN PO CONSTIPATION Last administered on 01/21/17 11:58; Admin Dose 30 ML; Start 01/21/17 at 10:30 Bisacodyl (Dulcolax) 10 mg DAILY PRN PO CONSTIPATION Last administered on 01/23 12:10; Admin Dose 10 MG; Start 01/21/17 at 10:30 Senna/Docusate Sodium (Senokot-S) 2 tab BID PO Last administered on 01/26/17 09:02; Admin Dose 2 TAB; Start 01/22/17 at 21:00 Bisacodyl (Dulcolax) 10 mg DAILY PRN PO CONSTIPATION; Start 01/22/17 at 22:00 Bisacodyl (Dulcolax Supp) 10 mg DAILY PRN [place] CONSTIPATION Last administered on 01/24/17 17:16; Admin Dose 10 MG; Start 01/23/17 at 15:30 Sodium Biphosphate/ Sodium Phosphate (Fleet Enema) 133 ml DAILY PRN [place] CONSTIPATION; Start 01/23/17 at 15:30 Furosemide (Lasix) 40 mg DAILY PO Last administered on 01/26/17t 09:07; Admin Dose 40 MG; Start 01/26/17 at 09:00 AWILDA LOU MD Jan 26, 2017 12:43
[2017-01-26] MEDS ORDERED: ALLOPURINOL 100 MG TAB PO ONE (13:00)
--- NOTE | 2017-01-26 13:24 | CONS ---
Date/Time of Note Date/Time of Note DATE: 01/26/17 TIME: 13:22 Assessment/Plan Assessment/Plan Chief Complaint/Hosp Course IMPRESSION: 1. Congestive heart failure exacerbation, diastolic, acute on chronic.- 2. Abnormal electrocardiogram, assess for acute coronary syndrome-downtrended 3. Hypertension. 4. Dyslipidemia. 5. Diabetes mellitus-BS uncontrolled/refusing medications 6. Renal failure. 7. Fevers. 8. Obstructive sleep apnea. 9. Obesity. 10. Positive troponin-likely demand type 2 in setting in renal failure and resp distress Recc: -Tele -serial ecg's -Continue current Toprol/statin -start asa -Continue abx's and f/u cx data -Ongoing endocrine follow-up with adjustment of insulin therapy -Lasix now PO -d/c planning from cardiac standpoint Problems: Consultation Date/Type/Reason Admit Date/Time Jan 19, 2017 at 01:40 Initial Consult Date 01/19/17 Type of Consultation: cardiology Reason for Consultation CHF Referring Provider: OLIVIA KAPLAN MD Exam/Review of Systems Vital Signs Vitals Vital Signs Date Time Temp Pulse Resp B/P Pulse Ox O2 Delivery O2 Flow Rate FiO2 01/26/17 12:38 66 01/26/17 11:48 99.0 65 133/55 94 01/26/17 08:00 Nasal Cannula 5.0 01/26/17 05:12 30 Intake and Output 01/25/17 01/25/17 01/26/17 15:00 23:00 07:00 Intake Total 800 ml 550 ml Output Total 1200 ml 1200 ml Balance -400 ml -650 ml Exam Review of Systems: CONSTITUTIONAL: No fevers, chills. PULMONARY: No sob CARDIOVASCULAR: No chest pain/palpitations GASTROINTESTINAL: No nausea/vomiting. GENITOURINARY: No hematuria/dysuria. MUSCULOSKELETAL: No myagias/arthalgias. PSYCHIATRIC: The patient denies depression. NEUROLOGIC: No weakness Constitutional: alert Psych: no complaints Head: normocephalic ENMT: mucosa pink and moist Neck: jvd (9 cm water), supple Respiratory: diminished breath sounds (at bases/B) Cardiovascular: regular rate and rhythm Gastrointestinal: non-tender, soft Musculoskeletal: muscle tone (normal) Extremities: pitting pedal edema (trace/B) Results Result Diagram: 01/26/17 0709 01/26/17 0709 Results 24 hrs Laboratory Tests Test 01/25/17 17:29 01/25/17 18:45 01/25/17 20:30 01/26/17 07:09 Bedside Glucose 76 127 Urine Eosinophils % 1.0 Urine Random Creatinine 72.21 Urine Random Sodium 44 Urine Protein/Creatinine Ratio 0.63 Urine Total Protein 46.0 H White Blood Count 12.3 H Red Blood Count 3.98 L Hemoglobin 11.1 L Hematocrit 36.3 L Mean Corpuscular Volume 91.2 Mean Corpuscular Hemoglobin 27.9 L Mean Corpuscular Hemoglobin Concent 30.6 L Red Cell Distribution Width 14.7 H Platelet Count 323 Mean Platelet Volume 9.5 Neutrophils % 77.7 H Lymphocytes % 13.1 L Monocytes % 5.5 Eosinophils % 2.7 Basophils % 0.3 Nucleated Red Blood Cells % 0.0 Neutrophils # 9.5 H Lymphocytes # 1.6 Monocytes # 0.7 Eosinophils # 0.3 Basophils # 0.0 Nucleated Red Blood Cells # 0.0 Sodium Level 141 Potassium Level 4.0 Chloride Level 93 L Carbon Dioxide Level 38 H Anion Gap 14 Blood Urea Nitrogen 52 H Creatinine 1.34 H Glucose Level 282 #H Uric Acid 9.1 H Calcium Level 9.0 Creatine Kinase 57 B-Type Natriuretic Peptide 272 H Test 01/26/17 08:32 01/26/17 11:32 Bedside Glucose 283 H 296 H Medications Medications Current Medications Ondansetron HCl (Zofran Inj) 4 mg Q6H PRN IV NAUSEA AND/OR VOMITING Last administered on 01/23/17t 13:33; Admin Dose 4 MG; Start 01/19/17 at 02:00 Acetaminophen (Tylenol Supp) 650 mg Q4H PRN [place] PAIN LEVEL 1-3 OR FEVER; Start 01/19/17 at 02:00 Morphine Sulfate (morphine) 2 mg Q4H PRN IV PAIN LEVEL 7-10; Start 01/19/17 at 02:00 Lorazepam (Ativan) 0.5 mg Q4H PRN IV ANXIETY; Start 01/19/17 at 02:00 Miscellaneous Information 1 ea NOTE XX ; Start 01/19/17 at 06:30 Glucose (Glutose) 15 gm Q15M PRN PO DECREASED GLUCOSE; Start 01/19/17 at 06:30 Glucose (Glutose) 22.5 gm Q15M PRN PO DECREASED GLUCOSE; Start 01/19/17 at 06: 30 Dextrose (D50w Syringe) 25 ml Q15M PRN IV DECREASED GLUCOSE; Start 01/19/17 at 06:30 Dextrose (D50w Syringe) 50 ml Q15M PRN IV DECREASED GLUCOSE; Start 01/19/17 at 06:30 Glucagon (Glucagen) 1 mg Q15M PRN IM DECREASED GLUCOSE; Start 01/19/17 at 06: 30 Glucose (Glutose) 15 gm Q15M PRN BUCCAL DECREASED GLUCOSE; Start 01/19/17 at 06:30 Aspirin (Aspirin) 81 mg DAILY PO Last administered on 01/26/17 09:02; Admin Dose 81 MG; Start 01/19/17 at 09:00 Atorvastatin Calcium (Lipitor) 40 mg HS PO Last administered on 01/25/17 20:31 ; Admin Dose 40 MG; Start 01/19/17 at 21:00 Clonazepam (Klonopin) 0.25 mg DAILY PRN PO ANXIETY; Start 01/19/17 at 06:30 Metoprolol Succinate (Toprol Xl) 50 mg DAILY PO Last administered on 01/26/17 09:07; Admin Dose 50 MG; Start 01/19/17 at 09:00 Paroxetine HCl (Paxil) 10 mg DAILY PO Last administered on 01/26/17 09:02; Admin Dose 10 MG; Start 01/19/17 at 09:00 Trazodone HCl (Desyrel) 50 mg QHS PO Last administered on 01/25/17 20:31; Admin Dose 50 MG; Start 01/19/17 at 21:00 Diagnostic Test (Pha) (Accu-Chek) 1 ea 02 XX Last administered on 01/23/17 02 :00; Admin Dose 1 EA; Start 01/20/17 at 02:00 Insulin Human NPH (Humulin N) 60 unit DAILY@22 SC Last administered on 21:26; Admin Dose 60 UNIT; Start 01/19/17 at 22:00 Linagliptin (Tradjenta) 5 mg DAILY PO Last administered on 01/26/17 09:02; Admin Dose 5 MG; Start 01/20/17 at 09:00 Empaglifozin (Jardiance) 10 mg DAILY@08 PO Last administered on 01/26/17 09:02 ; Admin Dose 10 MG; Start 01/20/17 at 08:00 Mupirocin (Bactroban) 1 applic BID TOP Last administered on 01/26/17 09:12; Admin Dose 1 APPLIC; Start 01/20/17 at 11:00 Insulin Glargine (Lantus) 46 unit DAILY@08 SC Last administered on 01/26/17 09 :21; Admin Dose 46 UNIT; Start 01/22/17 at 08:00 Magnesium Hydroxide (Milk Of Mag) 30 ml BID PRN PO CONSTIPATION Last administered on 01/21/17 11:58; Admin Dose 30 ML; Start 01/21/17 at 10:30 Bisacodyl (Dulcolax) 10 mg DAILY PRN PO CONSTIPATION Last administered on 01/23 12:10; Admin Dose 10 MG; Start 01/21/17 at 10:30 Senna/Docusate Sodium (Senokot-S) 2 tab BID PO Last administered on 01/26/17 09:02; Admin Dose 2 TAB; Start 01/22/17 at 21:00 Bisacodyl (Dulcolax) 10 mg DAILY PRN PO CONSTIPATION; Start 01/22/17 at 22:00 Bisacodyl (Dulcolax Supp) 10 mg DAILY PRN [place] CONSTIPATION Last administered on 01/24/17 17:16; Admin Dose 10 MG; Start 01/23/17 at 15:30 Sodium Biphosphate/ Sodium Phosphate (Fleet Enema) 133 ml DAILY PRN [place] CONSTIPATION; Start 01/23/17 at 15:30 Furosemide (Lasix) 40 mg DAILY PO Last administered on 01/26/17 09:07; Admin Dose 40 MG; Start 01/26/17 at 09:00 Allopurinol (Zyloprim) 100 mg DAILY PO ; Start 01/27/17 at 09:00 TERRIE DUNN 3, 2017 13:24
--- NOTE | 2017-01-26 13:30 | CONS ---
Date/Time of Note Date/Time of Note DATE: 01/26/17 TIME: 13:25 Assessment/Plan Assessment/Plan Problems: (1) DM w/o complication type II, uncontrolled Status: Chronic Comment: Pt. refused her NPH last night and now profoundly hyperglycemic. Have instructed both pt. and nursing staff that she cannot and must not refuse her NPH at night as it is essential to controlling her FBG. Expect her numbers will come back down w/o adjustment in her insulin doses. No changes for now. Consultation Date/Type/Reason Admit Date/Time Jan 19, 2017 at 01:40 Initial Consult Date 01/19/17 Type of Consultation: Endocrinology Reason for Consultation T2DM management Referring Provider: OLIVIA KAPLAN MD 24 HR Interval Summary Constitutional: improved, no complaints Detailed Summary Respiratory: no complaints Cardiovascular: no complaints Gastrointestinal: no complaints Genitourinary: no complaints Musculoskeletal: no complaints Neurologic: no complaints Exam/Review of Systems Vital Signs Vitals VS - Last 72 Hours, by Label Date Time Temp Pulse Resp B/P Pulse Ox O2 Delivery O2 Flow Rate FiO2 01/26/17 12:38 66 01/26/17 11:48 99.0 65 65 133/55 94 01/26/17 08:11 74 01/26/17 08:00 Nasal Cannula 5.0 01/26/17 07:52 2.0 01/26/17 07:34 99.2 75 20 112/52 99 01/26/17 05:12 70 95 30 01/26/17 04:07 98.6 69 19 134/55 95 01/26/17 04:02 69 01/26/17 03:52 72 95 30 01/26/17 02:02 70 99 30 01/26/17 00:17 69 99 30 01/26/17 00:17 98.9 83 19 174/70 96 01/26/17 00:07 80 01/25/17 23:48 95 2.0 01/25/17 20:04 62 01/25/17 20:00 Nasal Cannula 2.0 01/25/17 19:43 99.1 64 20 145/55 97 01/25/17 16:02 60 01/25/17 15:58 99.3 64 20 120/60 96 01/25/17 15:15 2.0 01/25/17 12:02 59 01/25/17 11:47 98.6 60 21 107/49 97 01/25/17 08:10 70 01/25/17 08:00 98.7 70 20 114/61 96 01/25/17 08:00 Nasal Cannula 2.0 01/25/17 04:43 98.9 71 20 117/66 99 01/25/17 04:00 69 01/25/17 00:21 97.1 60 18 128/69 96 01/25/17 00:00 60 01/24/17 22:05 2.0 01/24/17 20:00 63 01/24/17 19:54 98.1 60 18 135/68 97 01/24/17 16:06 61 01/24/17 15:52 98.5 62 21 126/88 96 01/24/17 12:00 63 01/24/17 11:52 98.2 57 21 134/48 91 01/24/17 08:30 Nasal Cannula 2.0 01/24/17 08:16 2.0 01/24/17 08:05 75 01/24/17 07:55 97.8 66 21 143/59 98 01/24/17 04:50 72 96 30 01/24/17 04:00 69 01/24/17 03:57 98.0 67 20 128/70 97 01/24/17 03:00 72 96 30 01/24/17 00:48 61 97 30 01/24/17 00:00 Nasal Cannula 2.0 01/24/17 00:00 66 01/23/17 23:31 98.1 62 21 137/65 98 01/23/17 22:40 2.0 01/23/17 22:40 62 97 30 01/23/17 20:01 66 01/23/17 19:31 98.4 67 21 149/55 95 01/23/17 19:19 Nasal Cannula 2.0 01/23/17 16:10 68 01/23/17 15:45 98.3 79 19 148/52 96 Vital Signs Date Time Temp Pulse Resp B/P Pulse Ox O2 Delivery O2 Flow Rate FiO2 01/26/17 12:38 66 01/26/17 11:48 99.0 65 133/55 94 01/26/17 08:00 Nasal Cannula 5.0 01/26/17 05:12 30 Intake and Output 01/25/17 01/25/17 01/26/17 15:00 23:00 07:00 Intake Total 800 ml 550 ml Output Total 1200 ml 1200 ml Balance -400 ml -650 ml Exam Constitutional: alert, obese, oriented Respiratory: clear to auscultation, normal air movement Cardiovascular: edema (1+ BLE), nl pulses, regular rate and rhythm, No murmurs/extra sounds, No rub Gastrointestinal: bowel sounds, nl liver, spleen, non-tender, soft, No mass, No rebound or guarding Musculoskeletal: nl extremities to inspection Extremities: normal pulses, No clubbing, No cyanosis, No edema 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, nl mental status, nl speech, nl strength Additional Comments Bedside Glucose - 72 Hours Test 01/23/17 17:20 01/23/17 20:04 01/23/17 22:38 01/24/17 08:07 Bedside Glucose 83mg/dL (70-220) 102mg/dL (70-220) 101mg/dL (70-220) 87mg/dL (70-220) Test 01/24/17 11:59 01/24/17 17:08 01/24/17 21:20 01/24/17 22:09 Bedside Glucose 126mg/dL (70-220) 126mg/dL (70-220) 85mg/dL (70-220) 80mg/dL (70-220) Test 01/25/17 08:11 01/25/17 11:59 01/25/17 17:29 01/25/17 20:30 Bedside Glucose 117mg/dL (70-220) 185mg/dL (70-220) 76mg/dL (70-220) 127mg/dL (70-220) Test 01/26/17 08:32 01/26/17 11:32 Bedside Glucose 283mg/dL (70-220) H 296mg/dL (70-220) H Results Result Diagram: 01/26/1770801/26/1709 Results 24 hrs Laboratory Tests Test 01/25/17 17:29 01/25/17 18:45 01/25/17 20:30 01/26/17 07:09 Bedside Glucose 76 127 Urine Eosinophils % 1.0 Urine Random Creatinine 72.21 Urine Random Sodium 44 Urine Protein/Creatinine Ratio 0.63 Urine Total Protein 46.0 H White Blood Count 12.3 H Red Blood Count 3.98 L Hemoglobin 11.1 L Hematocrit 36.3 L Mean Corpuscular Volume 91.2 Mean Corpuscular Hemoglobin 27.9 L Mean Corpuscular Hemoglobin Concent 30.6 L Red Cell Distribution Width 14.7 H Platelet Count 323 Mean Platelet Volume 9.5 Neutrophils % 77.7 H Lymphocytes % 13.1 L Monocytes % 5.5 Eosinophils % 2.7 Basophils % 0.3 Nucleated Red Blood Cells % 0.0 Neutrophils # 9.5 H Lymphocytes # 1.6 Monocytes # 0.7 Eosinophils # 0.3 Basophils # 0.0 Nucleated Red Blood Cells # 0.0 Sodium Level 141 Potassium Level 4.0 Chloride Level 93 L Carbon Dioxide Level 38 H Anion Gap 14 Blood Urea Nitrogen 52 H Creatinine 1.34 H Glucose Level 282 #H Uric Acid 9.1 H Calcium Level 9.0 Creatine Kinase 57 B-Type Natriuretic Peptide 272 H Test 01/26/17 08:32 01/26/17 11:32 Bedside Glucose 283 H 296 H Medications Medications Current Medications Ondansetron HCl (Zofran Inj) 4 mg Q6H PRN IV NAUSEA AND/OR VOMITING Last administered on 01/23/17t 13:33; Admin Dose 4 MG; Start 01/19/17 at 02:00 Acetaminophen (Tylenol Supp) 650 mg Q4H PRN [place] PAIN LEVEL 1-3 OR FEVER; Start 01/19/17 at 02:00 Morphine Sulfate (morphine) 2 mg Q4H PRN IV PAIN LEVEL 7-10; Start 01/19/17 at 02:00 Lorazepam (Ativan) 0.5 mg Q4H PRN IV ANXIETY; Start 01/19/17 at 02:00 Miscellaneous Information 1 ea NOTE XX ; Start 01/19/17 at 06:30 Glucose (Glutose) 15 gm Q15M PRN PO DECREASED GLUCOSE; Start 01/19/17 at 06:30 Glucose (Glutose) 22.5 gm Q15M PRN PO DECREASED GLUCOSE; Start 01/19/17 at 06: 30 Dextrose (D50w Syringe) 25 ml Q15M PRN IV DECREASED GLUCOSE; Start 01/19/17 at 06:30 Dextrose (D50w Syringe) 50 ml Q15M PRN IV DECREASED GLUCOSE; Start 01/19/17 at 06:30 Glucagon (Glucagen) 1 mg Q15M PRN IM DECREASED GLUCOSE; Start 01/19/17 at 06: 30 Glucose (Glutose) 15 gm Q15M PRN BUCCAL DECREASED GLUCOSE; Start 01/19/17 at 06:30 Aspirin (Aspirin) 81 mg DAILY PO Last administered on 01/26/17 09:02; Admin Dose 81 MG; Start 01/19/17 at 09:00 Atorvastatin Calcium (Lipitor) 40 mg HS PO Last administered on 01/25/17 20:31 ; Admin Dose 40 MG; Start 01/19/17 at 21:00 Clonazepam (Klonopin) 0.25 mg DAILY PRN PO ANXIETY; Start 01/19/17 at 06:30 Metoprolol Succinate (Toprol Xl) 50 mg DAILY PO Last administered on 01/26/17 09:07; Admin Dose 50 MG; Start 01/19/17 at 09:00 Paroxetine HCl (Paxil) 10 mg DAILY PO Last administered on 01/26/17 09:02; Admin Dose 10 MG; Start 01/19/17 at 09:00 Trazodone HCl (Desyrel) 50 mg QHS PO Last administered on 01/25/17 20:31; Admin Dose 50 MG; Start 01/19/17 at 21:00 Diagnostic Test (Pha) (Accu-Chek) 1 ea 02 XX Last administered on 01/23/17 02 :00; Admin Dose 1 EA; Start 01/20/17 at 02:00 Insulin Human NPH (Humulin N) 60 unit DAILY@22 SC Last administered on 21:26; Admin Dose 60 UNIT; Start 01/19/17 at 22:00 Linagliptin (Tradjenta) 5 mg DAILY PO Last administered on 01/26/17 09:02; Admin Dose 5 MG; Start 01/20/17 at 09:00 Empaglifozin (Jardiance) 10 mg DAILY@08 PO Last administered on 01/26/17 09:02 ; Admin Dose 10 MG; Start 01/20/17 at 08:00 Mupirocin (Bactroban) 1 applic BID TOP Last administered on 01/26/17 09:12; Admin Dose 1 APPLIC; Start 01/20/17 at 11:00 Insulin Glargine (Lantus) 46 unit DAILY@08 SC Last administered on 01/26/17 09 :21; Admin Dose 46 UNIT; Start 01/22/17 at 08:00 Magnesium Hydroxide (Milk Of Mag) 30 ml BID PRN PO CONSTIPATION Last administered on 01/21/17 11:58; Admin Dose 30 ML; Start 01/21/17 at 10:30 Bisacodyl (Dulcolax) 10 mg DAILY PRN PO CONSTIPATION Last administered on 01/23 12:10; Admin Dose 10 MG; Start 01/21/17 at 10:30 Senna/Docusate Sodium (Senokot-S) 2 tab BID PO Last administered on 01/26/17 09:02; Admin Dose 2 TAB; Start 01/22/17 at 21:00 Bisacodyl (Dulcolax) 10 mg DAILY PRN PO CONSTIPATION; Start 01/22/17 at 22:00 Bisacodyl (Dulcolax Supp) 10 mg DAILY PRN [place] CONSTIPATION Last administered on 01/24/17 17:16; Admin Dose 10 MG; Start 01/23/17 at 15:30 Sodium Biphosphate/ Sodium Phosphate (Fleet Enema) 133 ml DAILY PRN [place] CONSTIPATION; Start 01/23/17 at 15:30 Furosemide (Lasix) 40 mg DAILY PO Last administered on 01/26/17 09:07; Admin Dose 40 MG; Start 01/26/17 at 09:00 Allopurinol (Zyloprim) 100 mg DAILY PO ; Start 01/27/17 at 09:00 TONY KELLY MD Jan 26, 2017 13:29
[2017-01-26] MEDS: ATORVASTATIN 40 MG TAB PO SCH (20:46)
[2017-01-26] MEDS: traZODone 50 MG TAB PO SCH (20:46)
[2017-01-26] MEDS: NPH, HUMAN INSULIN ISOPHANE 3ML VIAL SC SCH (21:03)
[2017-01-27] VITALS (13 sets, daily range): BP systolic 119–160; BP diastolic 47–72; PULSE 57–73; RESP 19–20
[2017-01-27] MEDS: ACCU-CHEK XX SCH (02:00)
[2017-01-27] MEDS: INSULIN ASPART [NOVOLOG] 3 ML PEN SC SCH ×7 (07:30→21:16)
[2017-01-27] MEDS: EMPAGLIFLOZIN 10 MG TABLET PO SCH (08:16)
[2017-01-27] MEDS: ASPIRIN 81 MG TAB PO SCH (08:16)
[2017-01-27] MEDS: PAROXETINE 10 MG TAB PO SCH (08:17)
[2017-01-27] MEDS: METOPROLOL (XL) 50 MG TAB PO SCH (08:17)
[2017-01-27] MEDS: LINAGLIPTIN 5 MG TABLET PO SCH (08:17)
[2017-01-27] MEDS: SENNA/DOCUSATE NA (8.6MG/50MG) TAB PO SCH ×2 (08:17→21:11)
[2017-01-27] MEDS: ALLOPURINOL 100 MG TAB PO SCH (08:17)
[2017-01-27] MEDS: FUROSEMIDE 40 MG TAB PO SCH (08:18)
[2017-01-27] MEDS: MUPIROCIN 2% 22 GM OINT TOP SCH ×2 (08:23→21:12)
[2017-01-27] MEDS: INSULIN GLARGINE [LANtus] 3 ML PEN SC SCH (08:23)
--- NOTE | 2017-01-27 11:49 | CONS ---
Date/Time of Note Date/Time of Note DATE: 01/27/17 TIME: 11:47 Assessment/Plan Assessment/Plan Problems: (1) DM w/o complication type II, uncontrolled Status: Chronic Comment: Glucose levels normalized by yesterday afternoon. Resumed NPH last night w/ excellent results. Cont. all current insulin doses. Consultation Date/Type/Reason Admit Date/Time Jan 19, 2017 at 01:40 Initial Consult Date 01/19/17 Type of Consultation: Endocrinology Reason for Consultation T2DM management Referring Provider: OLIVIA KAPLAN MD 24 HR Interval Summary Constitutional: improved, no complaints Detailed Summary Respiratory: no complaints, No shortness of breath Cardiovascular: no complaints Gastrointestinal: no complaints Genitourinary: no complaints Musculoskeletal: no complaints Neurologic: no complaints Exam/Review of Systems Vital Signs Vitals VS - Last 72 Hours, by Label Date Time Temp Pulse Resp B/P Pulse Ox O2 Delivery O2 Flow Rate FiO2 01/27/17 08:11 64 01/27/17 08:04 98.4 67 20 142/64 94 01/27/17 08:00 Nasal Cannula 3.0 01/27/17 04:43 97.9 64 20 131/60 92 01/27/17 04:09 60 01/27/17 03:21 2.0 01/27/17 00:14 98.0 66 19 160/72 100 01/27/17 00:10 73 01/26/17 22:30 2.0 01/26/17 20:20 98.1 60 16 134/47 99 01/26/17 20:06 62 01/26/17 20:00 Nasal Cannula 5.0 01/26/17 16:24 57 01/26/17 15:31 98.3 59 21 147/63 98 01/26/17 12:38 66 01/26/17 11:48 99.0 65 65 133/55 94 01/26/17 08:11 74 01/26/17 08:00 Nasal Cannula 5.0 01/26/17 07:52 2.0 01/26/17 07:34 99.2 75 20 112/52 99 01/26/17 05:12 70 95 30 01/26/17 04:07 98.6 69 19 134/55 95 01/26/17 04:02 69 01/26/17 03:52 72 95 30 01/26/17 02:02 70 99 30 01/26/17 00:17 69 99 30 01/26/17 00:17 98.9 83 19 174/70 96 01/26/17 00:07 80 01/25/17 23:48 95 2.0 01/25/17 20:04 62 01/25/17 20:00 Nasal Cannula 2.0 01/25/17 19:43 99.1 64 20 145/55 97 01/25/17 16:02 60 01/25/17 15:58 99.3 64 20 120/60 96 01/25/17 15:15 2.0 01/25/17 12:02 59 01/25/17 11:47 98.6 60 21 107/49 97 01/25/17 08:10 70 01/25/17 08:00 98.7 70 20 114/61 96 01/25/17 08:00 Nasal Cannula 2.0 01/25/17 04:43 98.9 71 20 117/66 99 01/25/17 04:00 69 01/25/17 00:21 97.1 60 18 128/69 96 01/25/17 00:00 60 01/24/17 22:05 2.0 01/24/17 20:00 63 01/24/17 19:54 98.1 60 18 135/68 97 01/24/17 16:06 61 01/24/17 15:52 98.5 62 21 126/88 96 01/24/17 12:00 63 01/24/17 11:52 98.2 57 21 134/48 91 Vital Signs Date Time Temp Pulse Resp B/P Pulse Ox O2 Delivery O2 Flow Rate FiO2 01/27/17 08:11 64 01/27/17 08:04 98.4 20 142/64 94 01/27/17 08:00 Nasal Cannula 3.0 01/26/17 05:12 30 Intake and Output 01/26/17 01/26/17 01/27/17 15:00 23:00 07:00 Intake Total 600 ml 500 ml Balance 600 ml 500 ml Exam Constitutional: alert, obese, oriented Psych: nl mood/affect, no complaints Respiratory: clear to auscultation, normal air movement Cardiovascular: edema (1+ BLE), nl pulses, regular rate and rhythm, No murmurs/extra sounds, No rub Gastrointestinal: bowel sounds, nl liver, spleen, non-tender, soft, No mass, No rebound or guarding Musculoskeletal: nl extremities to inspection Extremities: edema (1+ BLE), No clubbing, No cyanosis 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, nl mental status, nl speech, nl strength Additional Comments Bedside Glucose - 72 Hours Test 01/24/17 11:59 01/24/17 17:08 01/24/17 21:20 01/24/17 22:09 Bedside Glucose 126mg/dL (70-220) 126mg/dL (70-220) 85mg/dL (70-220) 80mg/dL (70-220) Test 01/25/17 08:11 01/25/17 11:59 01/25/17 17:29 01/25/17 20:30 Bedside Glucose 117mg/dL (70-220) 185mg/dL (70-220) 76mg/dL (70-220) 127mg/dL (70-220) Test 01/26/17 08:32 01/26/17 11:32 01/26/17 17:21 01/26/17 20:45 Bedside Glucose 283mg/dL (70-220) H 296mg/dL (70-220) H 129mg/dL (70-220) 158mg/dL (70-220) Test 01/27/17 02:08 01/27/17 08:14 Bedside Glucose 146mg/dL (70-220) 134mg/dL (70-220) Results Result Diagram: 01/27/17 0815 01/27/17 0815 Results 24 hrs Laboratory Tests Test 01/26/17 17:21 01/26/17 20:45 01/27/17 02:08 01/27/17 08:14 Bedside Glucose 129 158 146 134 Test 01/27/17 08:15 White Blood Count 11.1 H Red Blood Count 3.92 L Hemoglobin 11.0 L Hematocrit 35.8 L Mean Corpuscular Volume 91.3 Mean Corpuscular Hemoglobin 28.1 L Mean Corpuscular Hemoglobin Concent 30.7 L Red Cell Distribution Width 14.6 H Platelet Count 324 Mean Platelet Volume 9.4 Neutrophils % 75.2 Lymphocytes % 14.2 L Monocytes % 5.0 Eosinophils % 4.4 Basophils % 0.4 Nucleated Red Blood Cells % 0.0 Neutrophils # 8.4 H Lymphocytes # 1.6 Monocytes # 0.6 Eosinophils # 0.5 Basophils # 0.0 Nucleated Red Blood Cells # 0.0 Sodium Level 141 Potassium Level 3.8 Chloride Level 95 L Carbon Dioxide Level 38 H Anion Gap 12 Blood Urea Nitrogen 55 H Creatinine 1.15 H Glucose Level 119 # Calcium Level 8.8 Medications Medications Current Medications Ondansetron HCl (Zofran Inj) 4 mg Q6H PRN IV NAUSEA AND/OR VOMITING Last administered on 01/23/17 13:33; Admin Dose 4 MG; Start 01/19/17 at 02:00 Acetaminophen (Tylenol Supp) 650 mg Q4H PRN [place] PAIN LEVEL 1-3 OR FEVER; Start 01/19/17 at 02:00 Morphine Sulfate (morphine) 2 mg Q4H PRN IV PAIN LEVEL 7-10; Start 01/19/17 at 02:00 Lorazepam (Ativan) 0.5 mg Q4H PRN IV ANXIETY; Start 01/19/17 at 02:00 Miscellaneous Information 1 ea NOTE XX ; Start 01/19/17 at 06:30 Glucose (Glutose) 15 gm Q15M PRN PO DECREASED GLUCOSE; Start 01/19/17 at 06:30 Glucose (Glutose) 22.5 gm Q15M PRN PO DECREASED GLUCOSE; Start 01/19/17 at 06: 30 Dextrose (D50w Syringe) 25 ml Q15M PRN IV DECREASED GLUCOSE; Start 01/19/17 at 06:30 Dextrose (D50w Syringe) 50 ml Q15M PRN IV DECREASED GLUCOSE; Start 01/19/17 at 06:30 Glucagon (Glucagen) 1 mg Q15M PRN IM DECREASED GLUCOSE; Start 01/19/17 at 06: 30 Glucose (Glutose) 15 gm Q15M PRN BUCCAL DECREASED GLUCOSE; Start 01/19/17 at 06:30 Aspirin (Aspirin) 81 mg DAILY PO Last administered on 01/27/17 08:16; Admin Dose 81 MG; Start 01/19/17 at 09:00 Atorvastatin Calcium (Lipitor) 40 mg HS PO Last administered on 01/26/17 20:46 ; Admin Dose 40 MG; Start 01/19/17 at 21:00 Clonazepam (Klonopin) 0.25 mg DAILY PRN PO ANXIETY; Start 01/19/17 at 06:30 Metoprolol Succinate (Toprol Xl) 50 mg DAILY PO Last administered on 01/27/17 08:17; Admin Dose 50 MG; Start 01/19/17 at 09:00 Paroxetine HCl (Paxil) 10 mg DAILY PO Last administered on 01/27/17 08:17; Admin Dose 10 MG; Start 01/19/17 at 09:00 Trazodone HCl (Desyrel) 50 mg QHS PO Last administered on 01/26/17 20:46; Admin Dose 50 MG; Start 01/19/17 at 21:00 Diagnostic Test (Pha) (Accu-Chek) 1 ea 02 XX Last administered on 01/23/17 02 :00; Admin Dose 1 EA; Start 01/20/17 at 02:00 Insulin Human NPH (Humulin N) 60 unit DAILY@22 SC Last administered on 21:03; Admin Dose 60 UNIT; Start 01/19/17 at 22:00 Linagliptin (Tradjenta) 5 mg DAILY PO Last administered on 01/27/17 08:17; Admin Dose 5 MG; Start 01/20/17 at 09:00 Empaglifozin (Jardiance) 10 mg DAILY@08 PO Last administered on 01/27/17 08:16 ; Admin Dose 10 MG; Start 01/20/17 at 08:00 Mupirocin (Bactroban) 1 applic BID TOP Last administered on 01/27/17 08:23; Admin Dose 1 APPLIC; Start 01/20/17 at 11:00 Insulin Glargine (Lantus) 46 unit DAILY@08 SC Last administered on 01/27/17 08 :23; Admin Dose 46 UNIT; Start 01/22/17 at 08:00 Magnesium Hydroxide (Milk Of Mag) 30 ml BID PRN PO CONSTIPATION Last administered on 01/21/17 11:58; Admin Dose 30 ML; Start 01/21/17 at 10:30 Bisacodyl (Dulcolax) 10 mg DAILY PRN PO CONSTIPATION Last administered on 01/23 12:10; Admin Dose 10 MG; Start 01/21/17 at 10:30 Senna/Docusate Sodium (Senokot-S) 2 tab BID PO Last administered on 01/27/17 08:17; Admin Dose 2 TAB; Start 01/22/17 at 21:00 Bisacodyl (Dulcolax) 10 mg DAILY PRN PO CONSTIPATION; Start 01/22/17 at 22:00 Bisacodyl (Dulcolax Supp) 10 mg DAILY PRN [place] CONSTIPATION Last administered on 01/24/17 17:16; Admin Dose 10 MG; Start 01/23/17 at 15:30 Sodium Biphosphate/ Sodium Phosphate (Fleet Enema) 133 ml DAILY PRN [place] CONSTIPATION; Start 01/23/17 at 15:30 Furosemide (Lasix) 40 mg DAILY PO Last administered on 01/27/17 08:18; Admin Dose 40 MG; Start 01/26/17 at 09:00 Allopurinol (Zyloprim) 100 mg DAILY PO Last administered on 01/27/17 08:17; Admin Dose 100 MG; Start 01/27/17 at 09:00 TONY KELLY MD Jan 27, 2017 11:49
--- NOTE | 2017-01-27 14:17 | CONS ---
Date/Time of Note Date/Time of Note DATE: 01/27/17 TIME: 14:16 Assessment/Plan Assessment/Plan Additional Assessment/Plan 1. Acute exacerbation of diastolic heart failure 2. Abnormal electrocardiogram 3. Hypertension. 4. Dyslipidemia. 5. Diabetes mellitus. 6. Renal failure. 7. Obstructive sleep apnea on Bipap 9. Obesity. 10. Pneumonia hemodynamically stable Continue Lasix Continue Toprol Continue Lipitor Continue Insulin Continue Nebs as scheduled Consultation Date/Type/Reason Admit Date/Time Jan 19, 2017 at 01:40 Constitutional: improved, no complaints Eyes: no complaints ENT: no complaints Respiratory: no complaints, No shortness of breath Cardiovascular: no complaints Gastrointestinal: no complaints Genitourinary: no complaints Musculoskeletal: no complaints Neurologic: no complaints Psychological: nl mood/affect, no complaints Past Medical History Medical History: congestive heart failure, coronary artery disease, diabetes, high cholesterol, hypertension, renal disease, other (glaucoma w/ B vision loss , anxiety, depression) Past Surgical History Past Surgical Hx: other (Ovarian cystectomy, BECKY, laser eye surgery) Social History Alcohol Use: none Smoking Status: Never smoker Drug Use: none Exam/Review of Systems Vital Signs Vitals Vital Signs Date Time Temp Pulse Resp B/P Pulse Ox O2 Delivery O2 Flow Rate FiO2 01/27/17 12:04 57 01/27/17 11:42 98.0 20 154/67 98 01/27/17 08:00 Nasal Cannula 3.0 01/26/17 05:12 30 Intake and Output 01/26/17 01/26/17 01/27/17 15:00 23:00 07:00 Intake Total 600 ml 500 ml Balance 600 ml 500 ml Exam Constitutional: alert, oriented Head: atraumatic, normocephalic Respiratory: diminished breath sounds Cardiovascular: regular rate and rhythm Gastrointestinal: nl liver, spleen, non-tender, soft Extremities: normal pulses Results Result Diagram: 01/27/17 0815 01/27/17 0815 Results 24 hrs Laboratory Tests Test 01/26/17 17:21 01/26/17 20:45 01/27/17 02:08 01/27/17 08:14 Bedside Glucose 129 158 146 134 Test 01/27/17 08:15 01/27/17 12:17 White Blood Count 11.1 H Red Blood Count 3.92 L Hemoglobin 11.0 L Hematocrit 35.8 L Mean Corpuscular Volume 91.3 Mean Corpuscular Hemoglobin 28.1 L Mean Corpuscular Hemoglobin Concent 30.7 L Red Cell Distribution Width 14.6 H Platelet Count 324 Mean Platelet Volume 9.4 Neutrophils % 75.2 Lymphocytes % 14.2 L Monocytes % 5.0 Eosinophils % 4.4 Basophils % 0.4 Nucleated Red Blood Cells % 0.0 Neutrophils # 8.4 H Lymphocytes # 1.6 Monocytes # 0.6 Eosinophils # 0.5 Basophils # 0.0 Nucleated Red Blood Cells # 0.0 Sodium Level 141 Potassium Level 3.8 Chloride Level 95 L Carbon Dioxide Level 38 H Anion Gap 12 Blood Urea Nitrogen 55 H Creatinine 1.15 H Glucose Level 119 # Calcium Level 8.8 Bedside Glucose 150 Medications Medications Current Medications Ondansetron HCl (Zofran Inj) 4 mg Q6H PRN IV NAUSEA AND/OR VOMITING Last administered on 01/23/17 13:33; Admin Dose 4 MG; Start 01/19/17 at 02:00 Acetaminophen (Tylenol Supp) 650 mg Q4H PRN [place] PAIN LEVEL 1-3 OR FEVER; Start 01/19/17 at 02:00 Morphine Sulfate (morphine) 2 mg Q4H PRN IV PAIN LEVEL 7-10; Start 01/19/17 at 02:00 Lorazepam (Ativan) 0.5 mg Q4H PRN IV ANXIETY; Start 01/19/17 at 02:00 Miscellaneous Information 1 ea NOTE XX ; Start 01/19/17 at 06:30 Glucose (Glutose) 15 gm Q15M PRN PO DECREASED GLUCOSE; Start 01/19/17 at 06:30 Glucose (Glutose) 22.5 gm Q15M PRN PO DECREASED GLUCOSE; Start 01/19/17 at 06: 30 Dextrose (D50w Syringe) 25 ml Q15M PRN IV DECREASED GLUCOSE; Start 01/19/17 at 06:30 Dextrose (D50w Syringe) 50 ml Q15M PRN IV DECREASED GLUCOSE; Start 01/19/17 at 06:30 Glucagon (Glucagen) 1 mg Q15M PRN IM DECREASED GLUCOSE; Start 01/19/17 at 06: 30 Glucose (Glutose) 15 gm Q15M PRN BUCCAL DECREASED GLUCOSE; Start 01/19/17 at 06:30 Aspirin (Aspirin) 81 mg DAILY PO Last administered on 01/27/17 08:16; Admin Dose 81 MG; Start 01/19/17 at 09:00 Atorvastatin Calcium (Lipitor) 40 mg HS PO Last administered on 01/26/17 20:46 ; Admin Dose 40 MG; Start 01/19/17 at 21:00 Clonazepam (Klonopin) 0.25 mg DAILY PRN PO ANXIETY; Start 01/19/17 at 06:30 Metoprolol Succinate (Toprol Xl) 50 mg DAILY PO Last administered on 01/27/17 08:17; Admin Dose 50 MG; Start 01/19/17 at 09:00 Paroxetine HCl (Paxil) 10 mg DAILY PO Last administered on 01/27/17 08:17; Admin Dose 10 MG; Start 01/19/17 at 09:00 Trazodone HCl (Desyrel) 50 mg QHS PO Last administered on 01/26/17 20:46; Admin Dose 50 MG; Start 01/19/17 at 21:00 Diagnostic Test (Pha) (Accu-Chek) 1 ea 02 XX Last administered on 01/23/17 02 :00; Admin Dose 1 EA; Start 01/20/17 at 02:00 Insulin Human NPH (Humulin N) 60 unit DAILY@22 SC Last administered on 21:03; Admin Dose 60 UNIT; Start 01/19/17 at 22:00 Linagliptin (Tradjenta) 5 mg DAILY PO Last administered on 01/27/17 08:17; Admin Dose 5 MG; Start 01/20/17 at 09:00 Empaglifozin (Jardiance) 10 mg DAILY@08 PO Last administered on 01/27/17 08:16 ; Admin Dose 10 MG; Start 01/20/17 at 08:00 Mupirocin (Bactroban) 1 applic BID TOP Last administered on 01/27/17 08:23; Admin Dose 1 APPLIC; Start 01/20/17 at 11:00 Insulin Glargine (Lantus) 46 unit DAILY@08 SC Last administered on 01/27/17 08 :23; Admin Dose 46 UNIT; Start 01/22/17 at 08:00 Magnesium Hydroxide (Milk Of Mag) 30 ml BID PRN PO CONSTIPATION Last administered on 01/21/17 11:58; Admin Dose 30 ML; Start 01/21/17 at 10:30 Bisacodyl (Dulcolax) 10 mg DAILY PRN PO CONSTIPATION Last administered on 01/23 12:10; Admin Dose 10 MG; Start 01/21/17 at 10:30 Senna/Docusate Sodium (Senokot-S) 2 tab BID PO Last administered on 01/27/17 08:17; Admin Dose 2 TAB; Start 01/22/17 at 21:00 Bisacodyl (Dulcolax) 10 mg DAILY PRN PO CONSTIPATION; Start 01/22/17 at 22:00 Bisacodyl (Dulcolax Supp) 10 mg DAILY PRN [place] CONSTIPATION Last administered on 01/24/17 17:16; Admin Dose 10 MG; Start 01/23/17 at 15:30 Sodium Biphosphate/ Sodium Phosphate (Fleet Enema) 133 ml DAILY PRN [place] CONSTIPATION; Start 01/23/17 at 15:30 Furosemide (Lasix) 40 mg DAILY PO Last administered on 01/27/17 08:18; Admin Dose 40 MG; Start 01/26/17 at 09:00 Allopurinol (Zyloprim) 100 mg DAILY PO Last administered on 01/27/17 08:17; Admin Dose 100 MG; Start 01/27/17 at 09:00 DAMION LARA M.D. Jan 27, 2017 14:17
[2017-01-27] MEDS: BISACODYL 10 MG SUPP PR PRN (16:01)
--- NOTE | 2017-01-27 16:18 | PN ---
Date/Time of Note Date/Time of Note DATE: 01/27/17 TIME: 16:09 Assessment/Plan VTE Prophylaxis VTE Prophylaxis Intervention: other Lines/Catheters IV [facility] Urinary Cath still in place: No Assessment/Plan Assessment/Plan - ARF 2 to pulm edema, resolving. uses BIPAP at night, - Dr. Bravo is following in pulmonology consultation. - Diastolic acute on chronic congestive heart failure exacerbation. Continue Lasix. Dr. Cota is following in cardiology consultation. Continue to monitor electrolytes. - Positive troponin. - Hypertension. - Diabetes mellitus type 2 with hemoglobin A1c 9.2. Continue Lantus and pre- meal NovoLog as well as NovoLog per mild algorithm sliding scale. Dr. Bartholomew is following in endocrinology consultation. - Acute on chronic kidney disease. Continue to monitor BUN and creatinine. - creatinine trending down - per Dr Rhett Kraft - Possible sleep apnea, continue BiPAP per pulmonology. - Hyperlipidemia. Continue statin. - Morbid obesity Further recommendations based on clinical course. Plan of care discussed with Dr. Garza. Subjective 24 Hr Interval Summary Free Text/Dictation C/O constipation, on stool softeners, denies any nausea/vomitting. dw staff- uses BIPAP at night, Constitutional: requiring O2 Cardiovascular: no complaints Gastrointestinal: pain Genitourinary: no complaints Musculoskeletal: no complaints Exam/Review of Systems Vital Signs Vitals Vital Signs Date Time Temp Pulse Resp B/P Pulse Ox O2 Delivery O2 Flow Rate FiO2 01/27/17 16:06 98.3 64 20 149/72 97 01/27/17 08:00 3.0 01/27/17 08:00 Nasal Cannula 01/26/17 05:12 30 Intake and Output 01/26/17 01/26/17 01/27/17 15:00 23:00 07:00 Intake Total 600 ml 500 ml Balance 600 ml 500 ml Exam Constitutional: alert, obese Respiratory: diminished breath sounds, normal air movement Gastrointestinal: non-tender, soft Musculoskeletal: nl extremities to inspection Extremities: normal pulses Results Result Diagram: 01/27/17 0815 01/27/17 0815 Results 24 hrs Laboratory Tests Test 01/26/17 17:21 01/26/17 20:45 01/27/17 02:08 01/27/17 08:14 Bedside Glucose 129 158 146 134 Test 01/27/17 08:15 01/27/17 12:17 White Blood Count 11.1 H Red Blood Count 3.92 L Hemoglobin 11.0 L Hematocrit 35.8 L Mean Corpuscular Volume 91.3 Mean Corpuscular Hemoglobin 28.1 L Mean Corpuscular Hemoglobin Concent 30.7 L Red Cell Distribution Width 14.6 H Platelet Count 324 Mean Platelet Volume 9.4 Neutrophils % 75.2 Lymphocytes % 14.2 L Monocytes % 5.0 Eosinophils % 4.4 Basophils % 0.4 Nucleated Red Blood Cells % 0.0 Neutrophils # 8.4 H Lymphocytes # 1.6 Monocytes # 0.6 Eosinophils # 0.5 Basophils # 0.0 Nucleated Red Blood Cells # 0.0 Sodium Level 141 Potassium Level 3.8 Chloride Level 95 L Carbon Dioxide Level 38 H Anion Gap 12 Blood Urea Nitrogen 55 H Creatinine 1.15 H Glucose Level 119 # Calcium Level 8.8 Bedside Glucose 150 Medications Medications Current Medications Ondansetron HCl (Zofran Inj) 4 mg Q6H PRN IV NAUSEA AND/OR VOMITING Last administered on 01/23/17t 13:33; Admin Dose 4 MG; Start 01/19/17 at 02:00 Acetaminophen (Tylenol Supp) 650 mg Q4H PRN [place] PAIN LEVEL 1-3 OR FEVER; Start 01/19/17 at 02:00 Morphine Sulfate (morphine) 2 mg Q4H PRN IV PAIN LEVEL 7-10; Start 01/19/17 at 02:00 Lorazepam (Ativan) 0.5 mg Q4H PRN IV ANXIETY; Start 01/19/17 at 02:00 Miscellaneous Information 1 ea NOTE XX ; Start 01/19/17 at 06:30 Glucose (Glutose) 15 gm Q15M PRN PO DECREASED GLUCOSE; Start 01/19/17 at 06:30 Glucose (Glutose) 22.5 gm Q15M PRN PO DECREASED GLUCOSE; Start 01/19/17 at 06: 30 Dextrose (D50w Syringe) 25 ml Q15M PRN IV DECREASED GLUCOSE; Start 01/19/17 at 06:30 Dextrose (D50w Syringe) 50 ml Q15M PRN IV DECREASED GLUCOSE; Start 01/19/17 at 06:30 Glucagon (Glucagen) 1 mg Q15M PRN IM DECREASED GLUCOSE; Start 01/19/17 at 06: 30 Glucose (Glutose) 15 gm Q15M PRN BUCCAL DECREASED GLUCOSE; Start 01/19/17 at 06:30 Aspirin (Aspirin) 81 mg DAILY PO Last administered on 01/27/17 08:16; Admin Dose 81 MG; Start 01/19/17 at 09:00 Atorvastatin Calcium (Lipitor) 40 mg HS PO Last administered on 01/26/17 20:46 ; Admin Dose 40 MG; Start 01/19/17 at 21:00 Clonazepam (Klonopin) 0.25 mg DAILY PRN PO ANXIETY; Start 01/19/17 at 06:30 Metoprolol Succinate (Toprol Xl) 50 mg DAILY PO Last administered on 01/27/17 08:17; Admin Dose 50 MG; Start 01/19/17 at 09:00 Paroxetine HCl (Paxil) 10 mg DAILY PO Last administered on 01/27/17 08:17; Admin Dose 10 MG; Start 01/19/17 at 09:00 Trazodone HCl (Desyrel) 50 mg QHS PO Last administered on 01/26/17 20:46; Admin Dose 50 MG; Start 01/19/17 at 21:00 Diagnostic Test (Pha) (Accu-Chek) 1 ea 02 XX Last administered on 01/23/17 02 :00; Admin Dose 1 EA; Start 01/20/17 at 02:00 Insulin Human NPH (Humulin N) 60 unit DAILY@22 SC Last administered on 21:03; Admin Dose 60 UNIT; Start 01/19/17 at 22:00 Linagliptin (Tradjenta) 5 mg DAILY PO Last administered on 01/27/17 08:17; Admin Dose 5 MG; Start 01/20/17 at 09:00 Empaglifozin (Jardiance) 10 mg DAILY@08 PO Last administered on 01/27/17 08:16 ; Admin Dose 10 MG; Start 01/20/17 at 08:00 Mupirocin (Bactroban) 1 applic BID TOP Last administered on 01/27/17 08:23; Admin Dose 1 APPLIC; Start 01/20/17 at 11:00 Insulin Glargine (Lantus) 46 unit DAILY@08 SC Last administered on 01/27/17 08 :23; Admin Dose 46 UNIT; Start 01/22/17 at 08:00 Magnesium Hydroxide (Milk Of Mag) 30 ml BID PRN PO CONSTIPATION Last administered on 01/21/17 11:58; Admin Dose 30 ML; Start 01/21/17 at 10:30 Bisacodyl (Dulcolax) 10 mg DAILY PRN PO CONSTIPATION Last administered on 01/23 12:10; Admin Dose 10 MG; Start 01/21/17 at 10:30 Senna/Docusate Sodium (Senokot-S) 2 tab BID PO Last administered on 01/27/17 08:17; Admin Dose 2 TAB; Start 01/22/17 at 21:00 Bisacodyl (Dulcolax) 10 mg DAILY PRN PO CONSTIPATION; Start 01/22/17 at 22:00 Bisacodyl (Dulcolax Supp) 10 mg DAILY PRN [place] CONSTIPATION Last administered on 01/27/17 16:01; Admin Dose 10 MG; Start 01/23/17 at 15:30 Sodium Biphosphate/ Sodium Phosphate (Fleet Enema) 133 ml DAILY PRN [place] CONSTIPATION; Start 01/23/17 at 15:30 Furosemide (Lasix) 40 mg DAILY PO Last administered on 01/27/17 08:18; Admin Dose 40 MG; Start 01/26/17 at 09:00 Allopurinol (Zyloprim) 100 mg DAILY PO Last administered on 01/27/17 08:17; Admin Dose 100 MG; Start 01/27/17 at 09:00 ENRRIQUE AGUILAR Jan 27, 2017 16:18
--- NOTE | 2017-01-27 17:02 | CONS ---
Date/Time of Note Date/Time of Note DATE: 01/27/17 TIME: 17:00 Assessment/Plan Assessment/Plan Additional Assessment/Plan 1. acute kidney injury with metabolic alkalosis- overdiuresis 2. acute on chronic CHF exacerbation 3. 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 HTN 5. DM II Plan : Lasix switched to PO , HCo3 stable 38- Cr improved to 1.15 renal US normal Urine studies Unremarkable uric acid high possibly due to metabolic syndrome, on allopurinol 100mg po daily no need for acetazolamide today will follow up Consultation Date/Type/Reason Admit Date/Time Jan 19, 2017 at 01:40 Initial Consult Date 01/25/17 Type of Consultation: NEPHROLOGY Referring Provider: OLIVIA KAPLAN MD 24 HR Interval Summary Free Text/Dictation BUN/Cr improving, HCo3 38, afebrile, BP stable Exam/Review of Systems Vital Signs Vitals Vital Signs Date Time Temp Pulse Resp B/P Pulse Ox O2 Delivery O2 Flow Rate FiO2 01/27/17 16:12 60 01/27/17 16:06 98.3 20 149/72 97 01/27/17 08:00 3.0 01/27/17 08:00 Nasal Cannula 01/26/17 05:12 30 Intake and Output 01/26/17 01/26/17 01/27/17 15:00 23:00 07:00 Intake Total 600 ml 500 ml Balance 600 ml 500 ml Exam Constitutional: alert Head: normocephalic Eyes: nl conjunctiva Neck: non-tender, supple Respiratory: crackles/rales, diminished breath sounds Cardiovascular: nl pulses, regular rate and rhythm Gastrointestinal: non-tender, soft Musculoskeletal: joint tenderness, muscle weakness, nl extremities to inspection, nl gait and stance, swelling Neurological: SPINDLE FRAME CARVER II-XII intact, nl mental status, nl speech, nl strength Results Result Diagram: 01/27/17 0815 01/27/17 0815 Results 24 hrs Laboratory Tests Test 01/26/17 17:21 01/26/17 20:45 01/27/17 02:08 01/27/17 08:14 Bedside Glucose 129 158 146 134 Test 01/27/17 08:15 01/27/17 12:17 White Blood Count 11.1 H Red Blood Count 3.92 L Hemoglobin 11.0 L Hematocrit 35.8 L Mean Corpuscular Volume 91.3 Mean Corpuscular Hemoglobin 28.1 L Mean Corpuscular Hemoglobin Concent 30.7 L Red Cell Distribution Width 14.6 H Platelet Count 324 Mean Platelet Volume 9.4 Neutrophils % 75.2 Lymphocytes % 14.2 L Monocytes % 5.0 Eosinophils % 4.4 Basophils % 0.4 Nucleated Red Blood Cells % 0.0 Neutrophils # 8.4 H Lymphocytes # 1.6 Monocytes # 0.6 Eosinophils # 0.5 Basophils # 0.0 Nucleated Red Blood Cells # 0.0 Sodium Level 141 Potassium Level 3.8 Chloride Level 95 L Carbon Dioxide Level 38 H Anion Gap 12 Blood Urea Nitrogen 55 H Creatinine 1.15 H Glucose Level 119 # Calcium Level 8.8 Bedside Glucose 150 Medications Medications Current Medications Ondansetron HCl (Zofran Inj) 4 mg Q6H PRN IV NAUSEA AND/OR VOMITING Last administered on 01/23/17 13:33; Admin Dose 4 MG; Start 01/19/17 at 02:00 Acetaminophen (Tylenol Supp) 650 mg Q4H PRN [place] PAIN LEVEL 1-3 OR FEVER; Start 01/19/17 at 02:00 Morphine Sulfate (morphine) 2 mg Q4H PRN IV PAIN LEVEL 7-10; Start 01/19/17 at 02:00 Lorazepam (Ativan) 0.5 mg Q4H PRN IV ANXIETY; Start 01/19/17 at 02:00 Miscellaneous Information 1 ea NOTE XX ; Start 01/19/17 at 06:30 Glucose (Glutose) 15 gm Q15M PRN PO DECREASED GLUCOSE; Start 01/19/17 at 06:30 Glucose (Glutose) 22.5 gm Q15M PRN PO DECREASED GLUCOSE; Start 01/19/17 at 06: 30 Dextrose (D50w Syringe) 25 ml Q15M PRN IV DECREASED GLUCOSE; Start 01/19/17 at 06:30 Dextrose (D50w Syringe) 50 ml Q15M PRN IV DECREASED GLUCOSE; Start 01/19/17 at 06:30 Glucagon (Glucagen) 1 mg Q15M PRN IM DECREASED GLUCOSE; Start 01/19/17 at 06: 30 Glucose (Glutose) 15 gm Q15M PRN BUCCAL DECREASED GLUCOSE; Start 01/19/17 at 06:30 Aspirin (Aspirin) 81 mg DAILY PO Last administered on 01/27/17 08:16; Admin Dose 81 MG; Start 01/19/17 at 09:00 Atorvastatin Calcium (Lipitor) 40 mg HS PO Last administered on 01/26/17 20:46 ; Admin Dose 40 MG; Start 01/19/17 at 21:00 Clonazepam (Klonopin) 0.25 mg DAILY PRN PO ANXIETY; Start 01/19/17 at 06:30 Metoprolol Succinate (Toprol Xl) 50 mg DAILY PO Last administered on 01/27/17 08:17; Admin Dose 50 MG; Start 01/19/17 at 09:00 Paroxetine HCl (Paxil) 10 mg DAILY PO Last administered on 01/27/17 08:17; Admin Dose 10 MG; Start 01/19/17 at 09:00 Trazodone HCl (Desyrel) 50 mg QHS PO Last administered on 01/26/17 20:46; Admin Dose 50 MG; Start 01/19/17 at 21:00 Diagnostic Test (Pha) (Accu-Chek) 1 ea 02 XX Last administered on 01/23/17 02 :00; Admin Dose 1 EA; Start 01/20/17 at 02:00 Insulin Human NPH (Humulin N) 60 unit DAILY@22 SC Last administered on 21:03; Admin Dose 60 UNIT; Start 01/19/17 at 22:00 Linagliptin (Tradjenta) 5 mg DAILY PO Last administered on 01/27/17 08:17; Admin Dose 5 MG; Start 01/20/17 at 09:00 Empaglifozin (Jardiance) 10 mg DAILY@08 PO Last administered on 01/27/17 08:16 ; Admin Dose 10 MG; Start 01/20/17 at 08:00 Mupirocin (Bactroban) 1 applic BID TOP Last administered on 01/27/17 08:23; Admin Dose 1 APPLIC; Start 01/20/17 at 11:00 Insulin Glargine (Lantus) 46 unit DAILY@08 SC Last administered on 01/27/17 08 :23; Admin Dose 46 UNIT; Start 01/22/17 at 08:00 Magnesium Hydroxide (Milk Of Mag) 30 ml BID PRN PO CONSTIPATION Last administered on 01/21/17 11:58; Admin Dose 30 ML; Start 01/21/17 at 10:30 Bisacodyl (Dulcolax) 10 mg DAILY PRN PO CONSTIPATION Last administered on 01/23 12:10; Admin Dose 10 MG; Start 01/21/17 at 10:30 Senna/Docusate Sodium (Senokot-S) 2 tab BID PO Last administered on 01/27/17 08:17; Admin Dose 2 TAB; Start 01/22/17 at 21:00 Bisacodyl (Dulcolax) 10 mg DAILY PRN PO CONSTIPATION; Start 01/22/17 at 22:00 Bisacodyl (Dulcolax Supp) 10 mg DAILY PRN [place] CONSTIPATION Last administered on 01/27/17 16:01; Admin Dose 10 MG; Start 01/23/17 at 15:30 Sodium Biphosphate/ Sodium Phosphate (Fleet Enema) 133 ml DAILY PRN [place] CONSTIPATION; Start 01/23/17 at 15:30 Furosemide (Lasix) 40 mg DAILY PO Last administered on 01/27/17 08:18; Admin Dose 40 MG; Start 01/26/17 at 09:00 Allopurinol (Zyloprim) 100 mg DAILY PO Last administered on 01/27/17 08:17; Admin Dose 100 MG; Start 01/27/17 at 09:00 AWILDA LOU MD Jan 27, 2017 17:01
[2017-01-27] MEDS: ATORVASTATIN 40 MG TAB PO SCH (21:10)
[2017-01-27] MEDS: traZODone 50 MG TAB PO SCH (21:11)
[2017-01-27] MEDS: NPH, HUMAN INSULIN ISOPHANE 3ML VIAL SC SCH (22:50)
[2017-01-28] VITALS (15 sets, daily range): BP systolic 119–136; BP diastolic 47–80; PULSE 57–71; RESP 16–20
[2017-01-28] MEDS: ACCU-CHEK XX SCH (02:50)
[2017-01-28] MEDS: INSULIN ASPART [NOVOLOG] 3 ML PEN SC SCH ×7 (07:30→21:00)
[2017-01-28] MEDS: ASPIRIN 81 MG TAB PO SCH (08:06)
[2017-01-28] MEDS: EMPAGLIFLOZIN 10 MG TABLET PO SCH (08:06)
[2017-01-28] MEDS: PAROXETINE 10 MG TAB PO SCH (08:06)
[2017-01-28] MEDS: FUROSEMIDE 40 MG TAB PO SCH (08:08)
[2017-01-28] MEDS: METOPROLOL (XL) 50 MG TAB PO SCH (08:08)
[2017-01-28] MEDS: ALLOPURINOL 100 MG TAB PO SCH (08:21)
[2017-01-28] MEDS: LINAGLIPTIN 5 MG TABLET PO SCH (08:21)
[2017-01-28] MEDS: SENNA/DOCUSATE NA (8.6MG/50MG) TAB PO SCH ×2 (08:21→21:50)
[2017-01-28] MEDS: MUPIROCIN 2% 22 GM OINT TOP SCH ×2 (08:22→21:00)
[2017-01-28] MEDS: INSULIN GLARGINE [LANtus] 3 ML PEN SC SCH (08:23)
--- NOTE | 2017-01-28 11:16 | CONS ---
Date/Time of Note Date/Time of Note DATE: 01/28/17 TIME: 11:15 Assessment/Plan Assessment/Plan Additional Assessment/Plan 1. Acute exacerbation of diastolic heart failure 2. Abnormal electrocardiogram 3. Hypertension. 4. Dyslipidemia. 5. Diabetes mellitus. 6. Renal failure. 7. Obstructive sleep apnea on Bipap 9. Obesity. hemodynamically stable \heart failure clinically compensated Stopped Lasix Continue Toprol Continue Lipitor Continue Insulin Continue Nebs as scheduled Consultation Date/Type/Reason Admit Date/Time Jan 19, 2017 at 01:40 Initial Consult Date 01/19/17 Type of Consultation: NEPHROLOGY Referring Provider: OLIVIA KAPLAN MD Exam/Review of Systems Vital Signs Vitals Vital Signs Date Time Temp Pulse Resp B/P Pulse Ox O2 Delivery O2 Flow Rate FiO2 01/28/17 08:10 63 01/28/17 08:00 Nasal Cannula 3.0 01/28/17 07:58 98.5 20 131/47 96 01/28/17 03:30 30 Intake and Output 01/27/17 01/27/17 01/28/17 15:00 23:00 07:00 Intake Total 1000 ml Balance 1000 ml Exam Constitutional: alert Head: atraumatic, normocephalic Respiratory: clear to auscultation Cardiovascular: regular rate and rhythm Gastrointestinal: nl liver, spleen, non-tender, soft Extremities: normal pulses Results Result Diagram: 01/27/17 0815 01/27/17 0815 Results 24 hrs Laboratory Tests Test 01/27/17 12:17 01/27/17 17:31 01/27/17 21:08 01/28/17 01:42 Bedside Glucose 150 96 180 144 Test 01/28/17 08:05 Bedside Glucose 91 Medications Medications Current Medications Ondansetron HCl (Zofran Inj) 4 mg Q6H PRN IV NAUSEA AND/OR VOMITING Last administered on 01/23/17t 13:33; Admin Dose 4 MG; Start 01/19/17 at 02:00 Acetaminophen (Tylenol Supp) 650 mg Q4H PRN [place] PAIN LEVEL 1-3 OR FEVER; Start 01/19/17 at 02:00 Morphine Sulfate (morphine) 2 mg Q4H PRN IV PAIN LEVEL 7-10; Start 01/19/17 at 02:00 Lorazepam (Ativan) 0.5 mg Q4H PRN IV ANXIETY; Start 01/19/17 at 02:00 Miscellaneous Information 1 ea NOTE XX ; Start 01/19/17 at 06:30 Glucose (Glutose) 15 gm Q15M PRN PO DECREASED GLUCOSE; Start 01/19/17 at 06:30 Glucose (Glutose) 22.5 gm Q15M PRN PO DECREASED GLUCOSE; Start 01/19/17 at 06: 30 Dextrose (D50w Syringe) 25 ml Q15M PRN IV DECREASED GLUCOSE; Start 01/19/17 at 06:30 Dextrose (D50w Syringe) 50 ml Q15M PRN IV DECREASED GLUCOSE; Start 01/19/17 at 06:30 Glucagon (Glucagen) 1 mg Q15M PRN IM DECREASED GLUCOSE; Start 01/19/17 at 06: 30 Glucose (Glutose) 15 gm Q15M PRN BUCCAL DECREASED GLUCOSE; Start 01/19/17 at 06:30 Aspirin (Aspirin) 81 mg DAILY PO Last administered on 01/28/17 08:06; Admin Dose 81 MG; Start 01/19/17 at 09:00 Atorvastatin Calcium (Lipitor) 40 mg HS PO Last administered on 01/27/17 21:10 ; Admin Dose 40 MG; Start 01/19/17 at 21:00 Clonazepam (Klonopin) 0.25 mg DAILY PRN PO ANXIETY; Start 01/19/17 at 06:30 Metoprolol Succinate (Toprol Xl) 50 mg DAILY PO Last administered on 01/28/17 08:08; Admin Dose 50 MG; Start 01/19/17 at 09:00 Paroxetine HCl (Paxil) 10 mg DAILY PO Last administered on 01/28/17 08:06; Admin Dose 10 MG; Start 01/19/17 at 09:00 Trazodone HCl (Desyrel) 50 mg QHS PO Last administered on 01/27/17 21:11; Admin Dose 50 MG; Start 01/19/17 at 21:00 Diagnostic Test (Pha) (Accu-Chek) 1 ea 02 XX Last administered on 01/28/17 02: 50; Admin Dose 1 EA; Start 01/20/17 at 02:00 Insulin Human NPH (Humulin N) 60 unit DAILY@22 SC Last administered on 22:50; Admin Dose 60 UNIT; Start 01/19/17 at 22:00 Linagliptin (Tradjenta) 5 mg DAILY PO Last administered on 01/28/17 08:21; Admin Dose 5 MG; Start 01/20/17 at 09:00 Empaglifozin (Jardiance) 10 mg DAILY@08 PO Last administered on 01/28/17 08:06 ; Admin Dose 10 MG; Start 01/20/17 at 08:00 Mupirocin (Bactroban) 1 applic BID TOP Last administered on 01/28/17 08:22; Admin Dose 1 APPLIC; Start 01/20/17 at 11:00 Insulin Glargine (Lantus) 46 unit DAILY@08 SC Last administered on 01/28/17 08 :23; Admin Dose 46 UNIT; Start 01/22/17 at 08:00 Magnesium Hydroxide (Milk Of Mag) 30 ml BID PRN PO CONSTIPATION Last administered on 01/21/17 11:58; Admin Dose 30 ML; Start 01/21/17 at 10:30 Bisacodyl (Dulcolax) 10 mg DAILY PRN PO CONSTIPATION Last administered on 01/23 12:10; Admin Dose 10 MG; Start 01/21/17 at 10:30 Senna/Docusate Sodium (Senokot-S) 2 tab BID PO Last administered on 01/28/17 08:21; Admin Dose 2 TAB; Start 01/22/17 at 21:00 Bisacodyl (Dulcolax) 10 mg DAILY PRN PO CONSTIPATION; Start 01/22/17 at 22:00 Bisacodyl (Dulcolax Supp) 10 mg DAILY PRN [place] CONSTIPATION Last administered on 01/27/17 16:01; Admin Dose 10 MG; Start 01/23/17 at 15:30 Sodium Biphosphate/ Sodium Phosphate (Fleet Enema) 133 ml DAILY PRN [place] CONSTIPATION; Start 01/23/17 at 15:30 Furosemide (Lasix) 40 mg DAILY PO Last administered on 01/28/17 08:08; Admin Dose 40 MG; Start 01/26/17 at 09:00 Allopurinol (Zyloprim) 100 mg DAILY PO Last administered on 01/28/17 08:21; Admin Dose 100 MG; Start 01/27/17 at 09:00 DAMION LARA M.D. Jan 28, 2017 11:16
--- NOTE | 2017-01-28 12:14 | CONS ---
Date/Time of Note Date/Time of Note DATE: 01/28/17 TIME: 12:13 Assessment/Plan Assessment/Plan Problems: (1) DM w/o complication type II, uncontrolled Status: Chronic Comment: Ongoing excellent glycemic control. Cont. current insulin doses. Consultation Date/Type/Reason Admit Date/Time Jan 19, 2017 at 01:40 Initial Consult Date 01/19/17 Type of Consultation: Endocrinology Reason for Consultation T2DM management Referring Provider: OLIVIA KAPLAN MD 24 HR Interval Summary Constitutional: improved, no complaints, No requiring O2 Detailed Summary Respiratory: no complaints, No shortness of breath Cardiovascular: no complaints Gastrointestinal: no complaints Genitourinary: no complaints Musculoskeletal: no complaints Neurologic: no complaints Exam/Review of Systems Vital Signs Vitals VS - Last 72 Hours, by Label Date Time Temp Pulse Resp B/P Pulse Ox O2 Delivery O2 Flow Rate FiO2 01/28/17 08:10 63 01/28/17 08:00 Nasal Cannula 3.0 01/28/17 07:58 98.5 65 20 131/47 96 01/28/17 06:06 3.0 01/28/17 05:08 98.1 60 16 121/55 98 01/28/17 04:30 57 01/28/17 03:30 65 98 30 01/28/17 01:50 Nasal Cannula 3.0 01/28/17 01:47 62 99 30 01/28/17 00:40 65 01/28/17 00:39 97.9 66 20 127/50 99 01/27/17 23:59 67 99 30 01/27/17 23:00 3.0 01/27/17 20:50 Nasal Cannula 3.0 01/27/17 20:33 98.9 68 20 119/47 100 01/27/17 20:15 67 01/27/17 16:12 60 01/27/17 16:06 98.3 64 20 149/72 97 01/27/17 12:04 57 01/27/17 11:42 98.0 59 20 154/67 98 01/27/17 08:11 64 01/27/17 08:04 98.4 67 20 142/64 94 01/27/17 08:00 94 3.0 01/27/17 08:00 Nasal Cannula 3.0 01/27/17 04:43 97.9 64 20 131/60 92 11/4/17 04:09 60 01/27/17 03:21 2.0 01/27/17 00:14 98.0 66 19 160/72 100 01/27/17 00:10 73 01/26/17 22:30 2.0 01/26/17 20:20 98.1 60 16 134/47 99 01/26/17 20:06 62 01/26/17 20:00 Nasal Cannula 5.0 01/26/17 16:24 57 01/26/17 15:31 98.3 59 21 147/63 98 01/26/17 12:38 66 01/26/17 11:48 99.0 65 65 133/55 94 01/26/17 08:11 74 01/26/17 08:00 Nasal Cannula 5.0 01/26/17 07:52 2.0 01/26/17 07:34 99.2 75 20 112/52 99 01/26/17 05:12 70 95 30 01/26/17 04:07 98.6 69 19 134/55 95 01/26/17 04:02 69 01/26/17 03:52 72 95 30 01/26/17 02:02 70 99 30 01/26/17 00:17 69 99 30 01/26/17 00:17 98.9 83 19 174/70 96 01/26/17 00:07 80 01/25/17 23:48 95 2.0 01/25/17 20:04 62 01/25/17 20:00 Nasal Cannula 2.0 01/25/17 19:43 99.1 64 20 145/55 97 01/25/17 16:02 60 01/25/17 15:58 99.3 64 20 120/60 96 01/25/17 15:15 2.0 Vital Signs Date Time Temp Pulse Resp B/P Pulse Ox O2 Delivery O2 Flow Rate FiO2 01/28/17 08:10 63 01/28/17 08:00 Nasal Cannula 3.0 01/28/17 07:58 98.5 20 131/47 96 01/28/17 03:30 30 Intake and Output 01/27/17 01/27/17 01/28/17 15:00 23:00 07:00 Intake Total 1000 ml Balance 1000 ml Exam Constitutional: alert, obese, oriented Psych: nl mood/affect, no complaints Respiratory: clear to auscultation, normal air movement Cardiovascular: nl pulses, regular rate and rhythm, No edema, No murmurs/extra sounds, No rub Gastrointestinal: bowel sounds, nl liver, spleen, non-tender, soft, No mass, No rebound or guarding Musculoskeletal: nl extremities to inspection Extremities: normal pulses, No clubbing, No cyanosis, No edema 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, nl mental status, nl speech, nl strength Additional Comments Bedside Glucose - 72 Hours Test 01/25/17 17:29 01/25/17 20:30 01/26/17 08:32 01/26/17 11:32 Bedside Glucose 76mg/dL (70-220) 127mg/dL (70-220) 283mg/dL (70-220) H 296mg/dL (70-220) H Test 01/26/17 17:21 01/26/17 20:45 01/27/17 02:08 01/27/17 08:14 Bedside Glucose 129mg/dL (70-220) 158mg/dL (70-220) 146mg/dL (70-220) 134mg/dL (70-220) Test 01/27/17 12:17 01/27/17 17:31 01/27/17 21:08 01/28/17 01:42 Bedside Glucose 150mg/dL (70-220) 96mg/dL (70-220) 180mg/dL (70-220) 144mg/dL (70-220) Test 01/28/17 08:05 01/28/17 11:50 Bedside Glucose 91mg/dL (70-220) 109mg/dL (70-220) Results Result Diagram: 01/27/1715 01/27/1715 Results 24 hrs Laboratory Tests Test 01/27/17 12:17 01/27/17 17:31 01/27/17 21:08 01/28/17 01:42 Bedside Glucose 150 96 180 144 Test 01/28/17 08:05 01/28/17 11:50 Bedside Glucose 91 109 Medications Medications Current Medications Ondansetron HCl (Zofran Inj) 4 mg Q6H PRN IV NAUSEA AND/OR VOMITING Last administered on 01/23/17t 13:33; Admin Dose 4 MG; Start 01/19/17 at 02:00 Acetaminophen (Tylenol Supp) 650 mg Q4H PRN [place] PAIN LEVEL 1-3 OR FEVER; Start 01/19/17 at 02:00 Morphine Sulfate (morphine) 2 mg Q4H PRN IV PAIN LEVEL 7-10; Start 01/19/17 at 02:00 Lorazepam (Ativan) 0.5 mg Q4H PRN IV ANXIETY; Start 01/19/17 at 02:00 Miscellaneous Information 1 ea NOTE XX ; Start 01/19/17 at 06:30 Glucose (Glutose) 15 gm Q15M PRN PO DECREASED GLUCOSE; Start 01/19/17 at 06:30 Glucose (Glutose) 22.5 gm Q15M PRN PO DECREASED GLUCOSE; Start 01/19/17 at 06: 30 Dextrose (D50w Syringe) 25 ml Q15M PRN IV DECREASED GLUCOSE; Start 01/19/17 at 06:30 Dextrose (D50w Syringe) 50 ml Q15M PRN IV DECREASED GLUCOSE; Start 01/19/17 at 06:30 Glucagon (Glucagen) 1 mg Q15M PRN IM DECREASED GLUCOSE; Start 01/19/17 at 06: 30 Glucose (Glutose) 15 gm Q15M PRN BUCCAL DECREASED GLUCOSE; Start 01/19/17 at 06:30 Aspirin (Aspirin) 81 mg DAILY PO Last administered on 01/28/17 08:06; Admin Dose 81 MG; Start 01/19/17 at 09:00 Atorvastatin Calcium (Lipitor) 40 mg HS PO Last administered on 01/27/17 21:10 ; Admin Dose 40 MG; Start 01/19/17 at 21:00 Clonazepam (Klonopin) 0.25 mg DAILY PRN PO ANXIETY; Start 01/19/17 at 06:30 Metoprolol Succinate (Toprol Xl) 50 mg DAILY PO Last administered on 01/28/17 08:08; Admin Dose 50 MG; Start 01/19/17 at 09:00 Paroxetine HCl (Paxil) 10 mg DAILY PO Last administered on 01/28/17 08:06; Admin Dose 10 MG; Start 01/19/17 at 09:00 Trazodone HCl (Desyrel) 50 mg QHS PO Last administered on 01/27/17 21:11; Admin Dose 50 MG; Start 01/19/17 at 21:00 Diagnostic Test (Pha) (Accu-Chek) 1 ea 02 XX Last administered on 01/28/17 02: 50; Admin Dose 1 EA; Start 01/20/17 at 02:00 Insulin Human NPH (Humulin N) 60 unit DAILY@22 SC Last administered on 22:50; Admin Dose 60 UNIT; Start 01/19/17 at 22:00 Linagliptin (Tradjenta) 5 mg DAILY PO Last administered on 01/28/17 08:21; Admin Dose 5 MG; Start 01/20/17 at 09:00 Empaglifozin (Jardiance) 10 mg DAILY@08 PO Last administered on 01/28/17 08:06 ; Admin Dose 10 MG; Start 01/20/17 at 08:00 Mupirocin (Bactroban) 1 applic BID TOP Last administered on 01/28/17 08:22; Admin Dose 1 APPLIC; Start 01/20/17 at 11:00 Insulin Glargine (Lantus) 46 unit DAILY@08 SC Last administered on 01/28/17 08 :23; Admin Dose 46 UNIT; Start 01/22/17 at 08:00 Magnesium Hydroxide (Milk Of Mag) 30 ml BID PRN PO CONSTIPATION Last administered on 01/21/17 11:58; Admin Dose 30 ML; Start 01/21/17 at 10:30 Bisacodyl (Dulcolax) 10 mg DAILY PRN PO CONSTIPATION Last administered on 01/23 12:10; Admin Dose 10 MG; Start 01/21/17 at 10:30 Senna/Docusate Sodium (Senokot-S) 2 tab BID PO Last administered on 01/28/17 08:21; Admin Dose 2 TAB; Start 01/22/17 at 21:00 Bisacodyl (Dulcolax) 10 mg DAILY PRN PO CONSTIPATION; Start 01/22/17 at 22:00 Bisacodyl (Dulcolax Supp) 10 mg DAILY PRN [place] CONSTIPATION Last administered on 01/27/17 16:01; Admin Dose 10 MG; Start 01/23/17 at 15:30 Sodium Biphosphate/ Sodium Phosphate (Fleet Enema) 133 ml DAILY PRN [place] CONSTIPATION; Start 01/23/17 at 15:30 Allopurinol (Zyloprim) 100 mg DAILY PO Last administered on 01/28/17 08:21; Admin Dose 100 MG; Start 01/27/17 at 09:00 TONY KELLY MD Jan 28, 2017 12:14
--- NOTE | 2017-01-28 18:10 | PN ---
Date/Time of Note Date/Time of Note DATE: 01/28/17 TIME: 18:08 Assessment/Plan VTE Prophylaxis VTE Prophylaxis Intervention: other Lines/Catheters IV [facility] Type (from [facility] [place] Urinary Cath still in place: No Assessment/Plan Assessment/Plan - Constipation- resolved, BM x1 today - ARF 2 to pulm edema, resolving. uses BIPAP at night, - Dr. Bravo is following in pulmonology consultation. - Diastolic acute on chronic congestive heart failure exacerbation. Continue Lasix. Dr. Cota is following in cardiology consultation. Continue to monitor electrolytes. - Positive troponin. - Hypertension. - Diabetes mellitus type 2 with hemoglobin A1c 9.2. Continue Lantus and pre- meal NovoLog as well as NovoLog per mild algorithm sliding scale. Dr. Bartholomew is following in endocrinology consultation. - Acute on chronic kidney disease. Continue to monitor BUN and creatinine. - creatinine trending down - per Dr Rhett Kraft - Possible sleep apnea, continue BiPAP per pulmonology. - Hyperlipidemia. Continue statin. - Morbid obesity Further recommendations based on clinical course. Plan of care discussed with Dr. Garza. Subjective 24 Hr Interval Summary Respiratory: shortness of breath Cardiovascular: no complaints Gastrointestinal: no complaints Genitourinary: no complaints Musculoskeletal: no complaints Exam/Review of Systems Vital Signs Vitals Vital Signs Date Time Temp Pulse Resp B/P Pulse Ox O2 Delivery O2 Flow Rate FiO2 01/28/17 16:10 71 01/28/17 15:47 98.0 20 119/58 95 01/28/17 08:00 Nasal Cannula 3.0 01/28/17 03:30 30 Intake and Output 01/27/17 01/27/17 01/28/17 15:00 23:00 07:00 Intake Total 1000 ml Balance 1000 ml Exam Constitutional: alert, obese, well developed Respiratory: diminished breath sounds, normal air movement Cardiovascular: nl pulses, other (s1s2) Gastrointestinal: non-tender, soft Musculoskeletal: nl extremities to inspection Extremities: normal pulses Neurological: nl mental status, nl speech Results Result Diagram: 01/27/1715 01/27/17 0815 Results 24 hrs Laboratory Tests Test 01/27/17 21:08 01/28/17 01:42 01/28/17 08:05 01/28/17 11:50 Bedside Glucose 180 144 91 109 Test 01/28/17 17:20 Bedside Glucose 73 Medications Medications Current Medications Ondansetron HCl (Zofran Inj) 4 mg Q6H PRN IV NAUSEA AND/OR VOMITING Last administered on 01/23/17 13:33; Admin Dose 4 MG; Start 01/19/17 at 02:00 Acetaminophen (Tylenol Supp) 650 mg Q4H PRN [place] PAIN LEVEL 1-3 OR FEVER; Start 01/19/17 at 02:00 Morphine Sulfate (morphine) 2 mg Q4H PRN IV PAIN LEVEL 7-10; Start 01/19/17 at 02:00 Lorazepam (Ativan) 0.5 mg Q4H PRN IV ANXIETY; Start 01/19/17 at 02:00 Miscellaneous Information 1 ea NOTE XX ; Start 01/19/17 at 06:30 Glucose (Glutose) 15 gm Q15M PRN PO DECREASED GLUCOSE; Start 01/19/17 at 06:30 Glucose (Glutose) 22.5 gm Q15M PRN PO DECREASED GLUCOSE; Start 01/19/17 at 06: 30 Dextrose (D50w Syringe) 25 ml Q15M PRN IV DECREASED GLUCOSE; Start 01/19/17 at 06:30 Dextrose (D50w Syringe) 50 ml Q15M PRN IV DECREASED GLUCOSE; Start 01/19/17 at 06:30 Glucagon (Glucagen) 1 mg Q15M PRN IM DECREASED GLUCOSE; Start 01/19/17 at 06: 30 Glucose (Glutose) 15 gm Q15M PRN BUCCAL DECREASED GLUCOSE; Start 01/19/17 at 06:30 Aspirin (Aspirin) 81 mg DAILY PO Last administered on 01/28/17 08:06; Admin Dose 81 MG; Start 01/19/17 at 09:00 Atorvastatin Calcium (Lipitor) 40 mg HS PO Last administered on 01/27/17 21:10 ; Admin Dose 40 MG; Start 01/19/17 at 21:00 Clonazepam (Klonopin) 0.25 mg DAILY PRN PO ANXIETY; Start 01/19/17 at 06:30 Metoprolol Succinate (Toprol Xl) 50 mg DAILY PO Last administered on 01/28/17 08:08; Admin Dose 50 MG; Start 01/19/17 at 09:00 Paroxetine HCl (Paxil) 10 mg DAILY PO Last administered on 01/28/17 08:06; Admin Dose 10 MG; Start 01/19/17 at 09:00 Trazodone HCl (Desyrel) 50 mg QHS PO Last administered on 01/27/17 21:11; Admin Dose 50 MG; Start 01/19/17 at 21:00 Diagnostic Test (Pha) (Accu-Chek) 1 ea 02 XX Last administered on 01/28/17 02: 50; Admin Dose 1 EA; Start 01/20/17 at 02:00 Insulin Human NPH (Humulin N) 60 unit DAILY@22 SC Last administered on 22:50; Admin Dose 60 UNIT; Start 01/19/17 at 22:00 Linagliptin (Tradjenta) 5 mg DAILY PO Last administered on 01/28/17 08:21; Admin Dose 5 MG; Start 01/20/17 at 09:00 Empaglifozin (Jardiance) 10 mg DAILY@08 PO Last administered on 01/28/17 08:06 ; Admin Dose 10 MG; Start 01/20/17 at 08:00 Mupirocin (Bactroban) 1 applic BID TOP Last administered on 01/28/17 08:22; Admin Dose 1 APPLIC; Start 01/20/17 at 11:00 Insulin Glargine (Lantus) 46 unit DAILY@08 SC Last administered on 01/28/17 08 :23; Admin Dose 46 UNIT; Start 01/22/17 at 08:00 Magnesium Hydroxide (Milk Of Mag) 30 ml BID PRN PO CONSTIPATION Last administered on 01/21/17 11:58; Admin Dose 30 ML; Start 01/21/17 at 10:30 Bisacodyl (Dulcolax) 10 mg DAILY PRN PO CONSTIPATION Last administered on 01/23 12:10; Admin Dose 10 MG; Start 01/21/17 at 10:30 Senna/Docusate Sodium (Senokot-S) 2 tab BID PO Last administered on 01/28/17 08:21; Admin Dose 2 TAB; Start 01/22/17 at 21:00 Bisacodyl (Dulcolax) 10 mg DAILY PRN PO CONSTIPATION; Start 01/22/17 at 22:00 Bisacodyl (Dulcolax Supp) 10 mg DAILY PRN [place] CONSTIPATION Last administered on 01/27/17 16:01; Admin Dose 10 MG; Start 01/23/17 at 15:30 Sodium Biphosphate/ Sodium Phosphate (Fleet Enema) 133 ml DAILY PRN [place] CONSTIPATION; Start 01/23/17 at 15:30 Allopurinol (Zyloprim) 100 mg DAILY PO Last administered on 01/28/17 08:21; Admin Dose 100 MG; Start 01/27/17 at 09:00 ENRRIQUE AGUILAR Jan 28, 2017 18:10
--- NOTE | 2017-01-28 21:34 | CONS ---
Date/Time of Note Date/Time of Note DATE: 01/28/17 TIME: 21:33 Assessment/Plan Assessment/Plan Additional Assessment/Plan 1. acute kidney injury with metabolic alkalosis- overdiuresis 2. acute on chronic CHF exacerbation 3. 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 HTN 5. DM II Plan : Lasix switched to PO , HCo3 stable 38- Cr improved to 1.15- no labs today to review yet renal US normal Urine studies Unremarkable uric acid high possibly due to metabolic syndrome, on allopurinol 100mg po daily no need for acetazolamide today will follow up Consultation Date/Type/Reason Admit Date/Time Jan 19, 2017 at 01:40 Initial Consult Date 01/25/17 Type of Consultation: NEPHROLOGY Referring Provider: OLIVIA KAPLAN MD 24 HR Interval Summary Free Text/Dictation Breathign better, BIPAP at nightime, no SOB, on 2 L NC Exam/Review of Systems Vital Signs Vitals Vital Signs Date Time Temp Pulse Resp B/P Pulse Ox O2 Delivery O2 Flow Rate FiO2 01/28/17 20:40 64 96 30 01/28/17 20:27 98.1 20 136/62 01/28/17 08:00 Nasal Cannula 3.0 Intake and Output 01/27/17 01/27/17 01/28/17 15:00 23:00 07:00 Intake Total 1000 ml Balance 1000 ml Exam Constitutional: alert Head: normocephalic Eyes: nl conjunctiva Neck: non-tender, supple Respiratory: crackles/rales, diminished breath sounds Cardiovascular: nl pulses, regular rate and rhythm Gastrointestinal: non-tender, soft Musculoskeletal: joint tenderness, muscle weakness, nl extremities to inspection, nl gait and stance, swelling 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, nl mental status, nl speech, nl strength Results Result Diagram: 01/27/1715 01/27/1715 Results 24 hrs Laboratory Tests Test 01/28/17 01:42 01/28/17 08:05 01/28/17 11:50 01/28/17 17:20 Bedside Glucose 144 91 109 73 Medications Medications Current Medications Ondansetron HCl (Zofran Inj) 4 mg Q6H PRN IV NAUSEA AND/OR VOMITING Last administered on 01/23/17t 13:33; Admin Dose 4 MG; Start 01/19/17 at 02:00 Acetaminophen (Tylenol Supp) 650 mg Q4H PRN [place] PAIN LEVEL 1-3 OR FEVER; Start 01/19/17 at 02:00 Morphine Sulfate (morphine) 2 mg Q4H PRN IV PAIN LEVEL 7-10; Start 01/19/17 at 02:00 Lorazepam (Ativan) 0.5 mg Q4H PRN IV ANXIETY; Start 01/19/17 at 02:00 Miscellaneous Information 1 ea NOTE XX ; Start 01/19/17 at 06:30 Glucose (Glutose) 15 gm Q15M PRN PO DECREASED GLUCOSE; Start 01/19/17 at 06:30 Glucose (Glutose) 22.5 gm Q15M PRN PO DECREASED GLUCOSE; Start 01/19/17 at 06: 30 Dextrose (D50w Syringe) 25 ml Q15M PRN IV DECREASED GLUCOSE; Start 01/19/17 at 06:30 Dextrose (D50w Syringe) 50 ml Q15M PRN IV DECREASED GLUCOSE; Start 01/19/17 at 06:30 Glucagon (Glucagen) 1 mg Q15M PRN IM DECREASED GLUCOSE; Start 01/19/17 at 06: 30 Glucose (Glutose) 15 gm Q15M PRN BUCCAL DECREASED GLUCOSE; Start 01/19/17 at 06:30 Aspirin (Aspirin) 81 mg DAILY PO Last administered on 01/28/17 08:06; Admin Dose 81 MG; Start 01/19/17 at 09:00 Atorvastatin Calcium (Lipitor) 40 mg HS PO Last administered on 01/27/17 21:10 ; Admin Dose 40 MG; Start 01/19/17 at 21:00 Clonazepam (Klonopin) 0.25 mg DAILY PRN PO ANXIETY; Start 01/19/17 at 06:30 Metoprolol Succinate (Toprol Xl) 50 mg DAILY PO Last administered on 01/28/17 08:08; Admin Dose 50 MG; Start 01/19/17 at 09:00 Paroxetine HCl (Paxil) 10 mg DAILY PO Last administered on 01/28/17 08:06; Admin Dose 10 MG; Start 01/19/17 at 09:00 Trazodone HCl (Desyrel) 50 mg QHS PO Last administered on 01/27/17 21:11; Admin Dose 50 MG; Start 01/19/17 at 21:00 Diagnostic Test (Pha) (Accu-Chek) 1 ea 02 XX Last administered on 01/28/17 02: 50; Admin Dose 1 EA; Start 01/20/17 at 02:00 Insulin Human NPH (Humulin N) 60 unit DAILY@22 SC Last administered on 22:50; Admin Dose 60 UNIT; Start 01/19/17 at 22:00 Linagliptin (Tradjenta) 5 mg DAILY PO Last administered on 01/28/17 08:21; Admin Dose 5 MG; Start 01/20/17 at 09:00 Empaglifozin (Jardiance) 10 mg DAILY@08 PO Last administered on 01/28/17 08:06 ; Admin Dose 10 MG; Start 01/20/17 at 08:00 Mupirocin (Bactroban) 1 applic BID TOP Last administered on 01/28/17 08:22; Admin Dose 1 APPLIC; Start 01/20/17 at 11:00 Insulin Glargine (Lantus) 46 unit DAILY@08 SC Last administered on 01/28/17 08 :23; Admin Dose 46 UNIT; Start 01/22/17 at 08:00 Magnesium Hydroxide (Milk Of Mag) 30 ml BID PRN PO CONSTIPATION Last administered on 01/21/17 11:58; Admin Dose 30 ML; Start 01/21/17 at 10:30 Bisacodyl (Dulcolax) 10 mg DAILY PRN PO CONSTIPATION Last administered on 01/23 12:10; Admin Dose 10 MG; Start 01/21/17 at 10:30 Senna/Docusate Sodium (Senokot-S) 2 tab BID PO Last administered on 01/28/17 08:21; Admin Dose 2 TAB; Start 01/22/17 at 21:00 Bisacodyl (Dulcolax) 10 mg DAILY PRN PO CONSTIPATION; Start 01/22/17 at 22:00 Bisacodyl (Dulcolax Supp) 10 mg DAILY PRN [place] CONSTIPATION Last administered on 01/27/17 16:01; Admin Dose 10 MG; Start 01/23/17 at 15:30 Sodium Biphosphate/ Sodium Phosphate (Fleet Enema) 133 ml DAILY PRN [place] CONSTIPATION; Start 01/23/17 at 15:30 Allopurinol (Zyloprim) 100 mg DAILY PO Last administered on 01/28/17t 08:21; Admin Dose 100 MG; Start 01/27/17 at 09:00 AWILDA LOU MD Jan 28, 2017 21:34
[2017-01-28] MEDS: ATORVASTATIN 40 MG TAB PO SCH (21:50)
[2017-01-28] MEDS: traZODone 50 MG TAB PO SCH (21:50)
[2017-01-28] MEDS: NPH, HUMAN INSULIN ISOPHANE 3ML VIAL SC SCH (22:36)
[2017-01-29] VITALS (16 sets, daily range): BP systolic 98–152; BP diastolic 47–72; PULSE 51–72; RESP 16–20
[2017-01-29] MEDS: ACCU-CHEK XX SCH (02:00)
[2017-01-29] MEDS: INSULIN ASPART [NOVOLOG] 3 ML PEN SC SCH ×5 (07:48→21:30)
[2017-01-29] MEDS: EMPAGLIFLOZIN 10 MG TABLET PO SCH (07:49)
[2017-01-29] MEDS: INSULIN GLARGINE [LANtus] 3 ML PEN SC SCH (07:49)
[2017-01-29] MEDS: MUPIROCIN 2% 22 GM OINT TOP SCH ×2 (09:13→21:30)
[2017-01-29] MEDS: SENNA/DOCUSATE NA (8.6MG/50MG) TAB PO SCH ×2 (09:13→21:30)
[2017-01-29] MEDS: PAROXETINE 10 MG TAB PO SCH (09:13)
[2017-01-29] MEDS: ASPIRIN 81 MG TAB PO SCH (09:13)
[2017-01-29] MEDS: ALLOPURINOL 100 MG TAB PO SCH (09:14)
[2017-01-29] MEDS: LINAGLIPTIN 5 MG TABLET PO SCH (09:14)
[2017-01-29] MEDS: METOPROLOL (XL) 50 MG TAB PO SCH (09:15)
--- NOTE | 2017-01-29 13:09 | PN ---
Date/Time of Note Date/Time of Note DATE: 01/29/17 TIME: 13:06 Assessment/Plan VTE Prophylaxis VTE Prophylaxis Intervention: SCD's Lines/Catheters IV C[facility]ter Type (from [facility]): Peripheral IV Urinary Cath still in place: No Assessment/Plan Chief Complaint/Hosp Course Patient is able to void, denies any dysuria. Patient is off Lasix continue to monitor renal function. If patient remained stable anticipate discharge home tomorrow Assessment/Plan - ARF 2 to pulm edema, resolving. Dr. Bravo is following in pulmonology consultation. - Diastolic acute on chronic congestive heart failure exacerbation. Continue Lasix. Dr. Cota is following in cardiology consultation. Continue to monitor electrolytes. - Positive troponin. - Hypertension. - Diabetes mellitus type 2 with hemoglobin A1c 9.2. Continue Lantus and pre- meal NovoLog as well as NovoLog per mild algorithm sliding scale. Dr. Bartholomew is following in endocrinology consultation. - Acute on chronic kidney disease. Continue to monitor BUN and creatinine. - Possible sleep apnea, continue BiPAP at night. - Hyperlipidemia. Continue statin. - Morbid obesity Further recommendations based on clinical course. Plan of care discussed with Dr. Garza. Problems: Exam/Review of Systems Vital Signs Vitals Vital Signs Date Time Temp Pulse Resp B/P Pulse Ox O2 Delivery O2 Flow Rate FiO2 01/29/17 12:11 62 01/29/17 11:34 98.2 20 113/50 95 01/29/17 08:00 Nasal Cannula 3.0 01/29/17 03:01 30 Intake and Output 01/28/17 01/28/17 01/29/17 15:00 23:00 07:00 Intake Total 740 ml 480 ml Balance 740 ml 480 ml Exam Constitutional: alert, oriented Head: normocephalic Neck: supple Respiratory: clear Cardiovascular: nl pulses, regular rate and rhythm Gastrointestinal: non-tender, soft Extremities: normal pulses Neurological: nl mental status Results Result Diagram: 01/29/17 0702 01/29/17 0702 Results 24 hrs Laboratory Tests Test 01/28/17 17:20 01/28/17 21:46 01/28/17 22:31 01/29/17 02:17 Bedside Glucose 73 70 76 168 Test 01/29/17 07:02 01/29/17 07:45 01/29/17 11:49 White Blood Count 9.2 Red Blood Count 3.92 L Hemoglobin 10.9 L Hematocrit 36.2 L Mean Corpuscular Volume 92.3 Mean Corpuscular Hemoglobin 27.8 L Mean Corpuscular Hemoglobin Concent 30.1 L Red Cell Distribution Width 15.1 H Platelet Count 301 Mean Platelet Volume 9.6 Neutrophils % 74.2 Lymphocytes % 15.9 Monocytes % 5.5 Eosinophils % 3.1 Basophils % 0.5 Nucleated Red Blood Cells % 0.0 Neutrophils # 6.8 Lymphocytes # 1.5 Monocytes # 0.5 Eosinophils # 0.3 Basophils # 0.1 Nucleated Red Blood Cells # 0.0 Sodium Level 143 Potassium Level 4.2 Chloride Level 98 Carbon Dioxide Level 38 H Anion Gap 11 Blood Urea Nitrogen 41 #H Creatinine 1.17 H Glucose Level 154 Calcium Level 9.3 Bedside Glucose 146 96 Medications Medications Current Medications Ondansetron HCl (Zofran Inj) 4 mg Q6H PRN IV NAUSEA AND/OR VOMITING Last administered on 01/23/17t 13:33; Admin Dose 4 MG; Start 01/19/17 at 02:00 Acetaminophen (Tylenol Supp) 650 mg Q4H PRN [place] PAIN LEVEL 1-3 OR FEVER; Start 01/19/17 at 02:00 Morphine Sulfate (morphine) 2 mg Q4H PRN IV PAIN LEVEL 7-10; Start 01/19/17 at 02:00 Lorazepam (Ativan) 0.5 mg Q4H PRN IV ANXIETY; Start 01/19/17 at 02:00 Miscellaneous Information 1 ea NOTE XX ; Start 01/19/17 at 06:30 Glucose (Glutose) 15 gm Q15M PRN PO DECREASED GLUCOSE; Start 01/19/17 at 06:30 Glucose (Glutose) 22.5 gm Q15M PRN PO DECREASED GLUCOSE; Start 01/19/17 at 06: 30 Dextrose (D50w Syringe) 25 ml Q15M PRN IV DECREASED GLUCOSE; Start 01/19/17 at 06:30 Dextrose (D50w Syringe) 50 ml Q15M PRN IV DECREASED GLUCOSE; Start 01/19/17 at 06:30 Glucagon (Glucagen) 1 mg Q15M PRN IM DECREASED GLUCOSE; Start 01/19/17 at 06: 30 Glucose (Glutose) 15 gm Q15M PRN BUCCAL DECREASED GLUCOSE; Start 01/19/17 at 06:30 Aspirin (Aspirin) 81 mg DAILY PO Last administered on 01/29/17 09:13; Admin Dose 81 MG; Start 01/19/17 at 09:00 Atorvastatin Calcium (Lipitor) 40 mg HS PO Last administered on 01/28/17 21:50 ; Admin Dose 40 MG; Start 01/19/17 at 21:00 Clonazepam (Klonopin) 0.25 mg DAILY PRN PO ANXIETY; Start 01/19/17 at 06:30 Metoprolol Succinate (Toprol Xl) 50 mg DAILY PO Last administered on 01/29/17 09:15; Admin Dose 50 MG; Start 01/19/17 at 09:00 Paroxetine HCl (Paxil) 10 mg DAILY PO Last administered on 01/29/17 09:13; Admin Dose 10 MG; Start 01/19/17 at 09:00 Trazodone HCl (Desyrel) 50 mg QHS PO Last administered on 01/28/17 21:50; Admin Dose 50 MG; Start 01/19/17 at 21:00 Diagnostic Test (Pha) (Accu-Chek) 1 ea 02 XX Last administered on 01/28/17 02: 50; Admin Dose 1 EA; Start 01/20/17 at 02:00 Insulin Human NPH (Humulin N) 60 unit DAILY@22 SC Last administered on 22:36; Admin Dose 60 UNIT; Start 01/19/17 at 22:00 Linagliptin (Tradjenta) 5 mg DAILY PO Last administered on 01/29/17 09:14; Admin Dose 5 MG; Start 01/20/17 at 09:00 Empaglifozin (Jardiance) 10 mg DAILY@08 PO Last administered on 01/29/17 07:49 ; Admin Dose 10 MG; Start 01/20/17 at 08:00 Mupirocin (Bactroban) 1 applic BID TOP Last administered on 01/29/17 09:13; Admin Dose 1 APPLIC; Start 01/20/17 at 11:00 Insulin Glargine (Lantus) 46 unit DAILY@08 SC Last administered on 01/29/17 07 :49; Admin Dose 46 UNIT; Start 01/22/17 at 08:00 Magnesium Hydroxide (Milk Of Mag) 30 ml BID PRN PO CONSTIPATION Last administered on 01/21/17 11:58; Admin Dose 30 ML; Start 01/21/17 at 10:30 Bisacodyl (Dulcolax) 10 mg DAILY PRN PO CONSTIPATION Last administered on 01/23 12:10; Admin Dose 10 MG; Start 01/21/17 at 10:30 Senna/Docusate Sodium (Senokot-S) 2 tab BID PO Last administered on 01/29/17 09:13; Admin Dose 2 TAB; Start 01/22/17 at 21:00 Bisacodyl (Dulcolax) 10 mg DAILY PRN PO CONSTIPATION; Start 01/22/17 at 22:00 Bisacodyl (Dulcolax Supp) 10 mg DAILY PRN PA CONSTIPATION Last administered on 01/27/17 16:01; Admin Dose 10 MG; Start 01/23/17 at 15:30 Sodium Biphosphate/ Sodium Phosphate (Fleet Enema) 133 ml DAILY PRN PA CONSTIPATION; Start 01/23/17 at 15:30 Allopurinol (Zyloprim) 100 mg DAILY PO Last administered on 01/29/17 09:14; Admin Dose 100 MG; Start 01/27/17 at 09:00 MADHU CAZARES Jan 29, 2017 13:09
[2017-01-29] MEDS: ATORVASTATIN 40 MG TAB PO SCH (21:30)
[2017-01-29] MEDS: traZODone 50 MG TAB PO SCH (21:30)
[2017-01-29] MEDS: NPH, HUMAN INSULIN ISOPHANE 3ML VIAL SC SCH (22:00)
--- NOTE | 2017-01-29 22:21 | CONS ---
Date/Time of Note Date/Time of Note DATE: 01/29/17 TIME: 22:20 Assessment/Plan Assessment/Plan Additional Assessment/Plan 1. acute kidney injury with metabolic alkalosis- overdiuresis 2. acute on chronic CHF exacerbation 3. 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 HTN 5. DM II Plan : Off lasix now, Cr 1.17, HCo3 stable 38- renal US normal Urine studies Unremarkable uric acid high possibly due to metabolic syndrome, on allopurinol 100mg po daily no need for acetazolamide- will continue to monitor HCo3 pt is on BIPAP at nighttime will follow up Consultation Date/Type/Reason Admit Date/Time Jan 19, 2017 at 01:40 Initial Consult Date 01/25/17 Type of Consultation: NEPHROLOGY Referring Provider: OLIVIA KAPLAN MD 24 HR Interval Summary Free Text/Dictation Cr 1.17, HCo3 38, Off Lasix now Exam/Review of Systems Vital Signs Vitals Vital Signs Date Time Temp Pulse Resp B/P Pulse Ox O2 Delivery O2 Flow Rate FiO2 01/29/17 20:00 64 01/29/17 15:30 97.8 20 141/56 95 01/29/17 13:43 2.0 01/29/17 08:00 Nasal Cannula 01/29/17 03:01 30 Intake and Output 01/28/17 01/28/17 01/29/17 15:00 23:00 07:00 Intake Total 740 ml 480 ml Balance 740 ml 480 ml Exam Constitutional: alert Head: normocephalic Eyes: nl conjunctiva Neck: non-tender, supple Respiratory: crackles/rales, diminished breath sounds Cardiovascular: nl pulses, regular rate and rhythm Gastrointestinal: non-tender, soft Musculoskeletal: joint tenderness, muscle weakness, nl extremities to inspection, nl gait and stance, swelling Neurological: [employer] EXECUTIVE II-XII intact, nl mental status, nl speech, nl strength Results Result Diagram: 01/29/17 0702 01/29/17 0702 Results 24 hrs Laboratory Tests Test 01/28/17 22:31 01/29/17 02:17 01/29/17 07:02 01/29/17 07:45 Bedside Glucose 76 168 146 White Blood Count 9.2 Red Blood Count 3.92 L Hemoglobin 10.9 L Hematocrit 36.2 L Mean Corpuscular Volume 92.3 Mean Corpuscular Hemoglobin 27.8 L Mean Corpuscular Hemoglobin Concent 30.1 L Red Cell Distribution Width 15.1 H Platelet Count 301 Mean Platelet Volume 9.6 Neutrophils % 74.2 Lymphocytes % 15.9 Monocytes % 5.5 Eosinophils % 3.1 Basophils % 0.5 Nucleated Red Blood Cells % 0.0 Neutrophils # 6.8 Lymphocytes # 1.5 Monocytes # 0.5 Eosinophils # 0.3 Basophils # 0.1 Nucleated Red Blood Cells # 0.0 Sodium Level 143 Potassium Level 4.2 Chloride Level 98 Carbon Dioxide Level 38 H Anion Gap 11 Blood Urea Nitrogen 41 #H Creatinine 1.17 H Glucose Level 154 Calcium Level 9.3 Test 01/29/17 11:49 01/29/17 17:02 01/29/17 17:49 Bedside Glucose 96 69 L 88 Medications Medications Current Medications Ondansetron HCl (Zofran Inj) 4 mg Q6H PRN IV NAUSEA AND/OR VOMITING Last administered on 01/23/17t 13:33; Admin Dose 4 MG; Start 01/19/17 at 02:00 Acetaminophen (Tylenol Supp) 650 mg Q4H PRN [place] PAIN LEVEL 1-3 OR FEVER; Start 01/19/17 at 02:00 Morphine Sulfate (morphine) 2 mg Q4H PRN IV PAIN LEVEL 7-10; Start 01/19/17 at 02:00 Lorazepam (Ativan) 0.5 mg Q4H PRN IV ANXIETY; Start 01/19/17 at 02:00 Miscellaneous Information 1 ea NOTE XX ; Start 01/19/17 at 06:30 Glucose (Glutose) 15 gm Q15M PRN PO DECREASED GLUCOSE; Start 01/19/17 at 06:30 Glucose (Glutose) 22.5 gm Q15M PRN PO DECREASED GLUCOSE; Start 01/19/17 at 06: 30 Dextrose (D50w Syringe) 25 ml Q15M PRN IV DECREASED GLUCOSE; Start 01/19/17 at 06:30 Dextrose (D50w Syringe) 50 ml Q15M PRN IV DECREASED GLUCOSE; Start 01/19/17 at 06:30 Glucagon (Glucagen) 1 mg Q15M PRN IM DECREASED GLUCOSE; Start 01/19/17 at 06: 30 Glucose (Glutose) 15 gm Q15M PRN BUCCAL DECREASED GLUCOSE; Start 01/19/17 at 06:30 Aspirin (Aspirin) 81 mg DAILY PO Last administered on 01/29/17 09:13; Admin Dose 81 MG; Start 01/19/17 at 09:00 Atorvastatin Calcium (Lipitor) 40 mg HS PO Last administered on 01/28/17 21:50 ; Admin Dose 40 MG; Start 01/19/17 at 21:00 Clonazepam (Klonopin) 0.25 mg DAILY PRN PO ANXIETY; Start 01/19/17 at 06:30 Metoprolol Succinate (Toprol Xl) 50 mg DAILY PO Last administered on 01/29/17 09:15; Admin Dose 50 MG; Start 01/19/17 at 09:00 Paroxetine HCl (Paxil) 10 mg DAILY PO Last administered on 01/29/17 09:13; Admin Dose 10 MG; Start 01/19/17 at 09:00 Trazodone HCl (Desyrel) 50 mg QHS PO Last administered on 01/28/17 21:50; Admin Dose 50 MG; Start 01/19/17 at 21:00 Diagnostic Test (Pha) (Accu-Chek) 1 ea 02 XX Last administered on 01/28/17 02: 50; Admin Dose 1 EA; Start 01/20/17 at 02:00 Insulin Human NPH (Humulin N) 60 unit DAILY@22 SC Last administered on 22:36; Admin Dose 60 UNIT; Start 01/19/17 at 22:00 Linagliptin (Tradjenta) 5 mg DAILY PO Last administered on 01/29/17 09:14; Admin Dose 5 MG; Start 01/20/17 at 09:00 Empaglifozin (Jardiance) 10 mg DAILY@08 PO Last administered on 01/29/17 07:49 ; Admin Dose 10 MG; Start 01/20/17 at 08:00 Mupirocin (Bactroban) 1 applic BID TOP Last administered on 01/29/17 09:13; Admin Dose 1 APPLIC; Start 01/20/17 at 11:00 Insulin Glargine (Lantus) 46 unit DAILY@08 SC Last administered on 01/29/17 07 :49; Admin Dose 46 UNIT; Start 01/22/17 at 08:00 Magnesium Hydroxide (Milk Of Mag) 30 ml BID PRN PO CONSTIPATION Last administered on 01/21/17 11:58; Admin Dose 30 ML; Start 01/21/17 at 10:30 Bisacodyl (Dulcolax) 10 mg DAILY PRN PO CONSTIPATION Last administered on 01/23 12:10; Admin Dose 10 MG; Start 01/21/17 at 10:30 Senna/Docusate Sodium (Senokot-S) 2 tab BID PO Last administered on 01/29/17 09:13; Admin Dose 2 TAB; Start 01/22/17 at 21:00 Bisacodyl (Dulcolax) 10 mg DAILY PRN PO CONSTIPATION; Start 01/22/17 at 22:00 Bisacodyl (Dulcolax Supp) 10 mg DAILY PRN [place] CONSTIPATION Last administered on 01/27/17 16:01; Admin Dose 10 MG; Start 01/23/17 at 15:30 Sodium Biphosphate/ Sodium Phosphate (Fleet Enema) 133 ml DAILY PRN [place] CONSTIPATION; Start 01/23/17 at 15:30 Allopurinol (Zyloprim) 100 mg DAILY PO Last administered on 01/29/17 09:14; Admin Dose 100 MG; Start 01/27/17 at 09:00 AWILDA LOU MD Jan 29, 2017 22:21
--- NOTE | 2017-01-29 22:48 | CONS ---
Date/Time of Note Date/Time of Note DATE: 01/29/17 TIME: 22:43 Assessment/Plan Assessment/Plan Chief Complaint/Hosp Course IMPRESSION: 1. Congestive heart failure exacerbation, diastolic, acute on chronic.- 2. Abnormal electrocardiogram, assess for acute coronary syndrome-downtrended 3. Hypertension. 4. Dyslipidemia. 5. Diabetes mellitus-BS uncontrolled/refusing medications 6. Renal failure. 7. Fevers. 8. Obstructive sleep apnea. 9. Obesity. 10. Positive troponin-likely demand type 2 in setting in renal failure and resp distress Recc: -Tele -serial ecg's -Continue current Toprol/statin -Continue asa -Continue abx's and f/u cx data -Ongoing endocrine follow-up with adjustment of insulin therapy -Lasix held following creatnine Problems: Consultation Date/Type/Reason Admit Date/Time Jan 19, 2017 at 01:40 Initial Consult Date 01/19/17 Type of Consultation: cardiology Reason for Consultation CHF Referring Provider: OLIVIA KAPLAN MD Exam/Review of Systems Vital Signs Vitals Vital Signs Date Time Temp Pulse Resp B/P Pulse Ox O2 Delivery O2 Flow Rate FiO2 01/29/17 21:40 2.0 01/29/17 21:40 51 98 30 01/29/17 20:00 98.7 16 152/67 01/29/17 08:00 Nasal Cannula Intake and Output 01/28/17 01/28/17 01/29/17 15:00 23:00 07:00 Intake Total 740 ml 480 ml Balance 740 ml 480 ml Exam Review of Systems: CONSTITUTIONAL: No fevers, chills. PULMONARY: No sob CARDIOVASCULAR: No chest pain/palpitations GASTROINTESTINAL: No nausea/vomiting. GENITOURINARY: No hematuria/dysuria. MUSCULOSKELETAL: No myagias/arthalgias. PSYCHIATRIC: The patient denies depression. NEUROLOGIC: No weakness Constitutional: alert Psych: no complaints Head: normocephalic ENMT: mucosa pink and moist Neck: jvd Respiratory: clear to auscultation Cardiovascular: regular rate and rhythm Gastrointestinal: non-tender, soft Musculoskeletal: muscle tone (normal) Extremities: edema (trace) Neurological: other (no focal deficits), unresponsive Results Result Diagram: 01/29/17 0702 01/29/17 0702 Results 24 hrs Laboratory Tests Test 01/29/17 02:17 01/29/17 07:02 01/29/17 07:45 01/29/17 11:49 Bedside Glucose 168 146 96 White Blood Count 9.2 Red Blood Count 3.92 L Hemoglobin 10.9 L Hematocrit 36.2 L Mean Corpuscular Volume 92.3 Mean Corpuscular Hemoglobin 27.8 L Mean Corpuscular Hemoglobin Concent 30.1 L Red Cell Distribution Width 15.1 H Platelet Count 301 Mean Platelet Volume 9.6 Neutrophils % 74.2 Lymphocytes % 15.9 Monocytes % 5.5 Eosinophils % 3.1 Basophils % 0.5 Nucleated Red Blood Cells % 0.0 Neutrophils # 6.8 Lymphocytes # 1.5 Monocytes # 0.5 Eosinophils # 0.3 Basophils # 0.1 Nucleated Red Blood Cells # 0.0 Sodium Level 143 Potassium Level 4.2 Chloride Level 98 Carbon Dioxide Level 38 H Anion Gap 11 Blood Urea Nitrogen 41 #H Creatinine 1.17 H Glucose Level 154 Calcium Level 9.3 Test 01/29/17 17:02 01/29/17 17:49 Bedside Glucose 69 L 88 Medications Medications Current Medications Ondansetron HCl (Zofran Inj) 4 mg Q6H PRN IV NAUSEA AND/OR VOMITING Last administered on 01/23/17t 13:33; Admin Dose 4 MG; Start 01/19/17 at 02:00 Acetaminophen (Tylenol Supp) 650 mg Q4H PRN [place] PAIN LEVEL 1-3 OR FEVER; Start 01/19/17 at 02:00 Morphine Sulfate (morphine) 2 mg Q4H PRN IV PAIN LEVEL 7-10; Start 01/19/17 at 02:00 Lorazepam (Ativan) 0.5 mg Q4H PRN IV ANXIETY; Start 01/19/17 at 02:00 Miscellaneous Information 1 ea NOTE XX ; Start 01/19/17 at 06:30 Glucose (Glutose) 15 gm Q15M PRN PO DECREASED GLUCOSE; Start 01/19/17 at 06:30 Glucose (Glutose) 22.5 gm Q15M PRN PO DECREASED GLUCOSE; Start 01/19/17 at 06: 30 Dextrose (D50w Syringe) 25 ml Q15M PRN IV DECREASED GLUCOSE; Start 01/19/17 at 06:30 Dextrose (D50w Syringe) 50 ml Q15M PRN IV DECREASED GLUCOSE; Start 01/19/17 at 06:30 Glucagon (Glucagen) 1 mg Q15M PRN IM DECREASED GLUCOSE; Start 01/19/17 at 06: 30 Glucose (Glutose) 15 gm Q15M PRN BUCCAL DECREASED GLUCOSE; Start 01/19/17 at 06:30 Aspirin (Aspirin) 81 mg DAILY PO Last administered on 01/29/17 09:13; Admin Dose 81 MG; Start 01/19/17 at 09:00 Atorvastatin Calcium (Lipitor) 40 mg HS PO Last administered on 01/28/17 21:50 ; Admin Dose 40 MG; Start 01/19/17 at 21:00 Clonazepam (Klonopin) 0.25 mg DAILY PRN PO ANXIETY; Start 01/19/17 at 06:30 Metoprolol Succinate (Toprol Xl) 50 mg DAILY PO Last administered on 01/29/17 09:15; Admin Dose 50 MG; Start 01/19/17 at 09:00 Paroxetine HCl (Paxil) 10 mg DAILY PO Last administered on 01/29/17 09:13; Admin Dose 10 MG; Start 01/19/17 at 09:00 Trazodone HCl (Desyrel) 50 mg QHS PO Last administered on 01/28/17 21:50; Admin Dose 50 MG; Start 01/19/17 at 21:00 Diagnostic Test (Pha) (Accu-Chek) 1 ea 02 XX Last administered on 01/28/17 02: 50; Admin Dose 1 EA; Start 01/20/17 at 02:00 Insulin Human NPH (Humulin N) 60 unit DAILY@22 SC Last administered on 22:36; Admin Dose 60 UNIT; Start 01/19/17 at 22:00 Linagliptin (Tradjenta) 5 mg DAILY PO Last administered on 01/29/17 09:14; Admin Dose 5 MG; Start 01/20/17 at 09:00 Empaglifozin (Jardiance) 10 mg DAILY@08 PO Last administered on 01/29/17 07:49 ; Admin Dose 10 MG; Start 01/20/17 at 08:00 Mupirocin (Bactroban) 1 applic BID TOP Last administered on 01/29/17 09:13; Admin Dose 1 APPLIC; Start 01/20/17 at 11:00 Insulin Glargine (Lantus) 46 unit DAILY@08 SC Last administered on 01/29/17 07 :49; Admin Dose 46 UNIT; Start 01/22/17 at 08:00 Magnesium Hydroxide (Milk Of Mag) 30 ml BID PRN PO CONSTIPATION Last administered on 01/21/17 11:58; Admin Dose 30 ML; Start 01/21/17 at 10:30 Bisacodyl (Dulcolax) 10 mg DAILY PRN PO CONSTIPATION Last administered on 01/23 12:10; Admin Dose 10 MG; Start 01/21/17 at 10:30 Senna/Docusate Sodium (Senokot-S) 2 tab BID PO Last administered on 01/29/17 09:13; Admin Dose 2 TAB; Start 01/22/17 at 21:00 Bisacodyl (Dulcolax) 10 mg DAILY PRN PO CONSTIPATION; Start 01/22/17 at 22:00 Bisacodyl (Dulcolax Supp) 10 mg DAILY PRN [place] CONSTIPATION Last administered on 01/27/17 16:01; Admin Dose 10 MG; Start 01/23/17 at 15:30 Sodium Biphosphate/ Sodium Phosphate (Fleet Enema) 133 ml DAILY PRN [place] CONSTIPATION; Start 01/23/17 at 15:30 Allopurinol (Zyloprim) 100 mg DAILY PO Last administered on 01/29/17 09:14; Admin Dose 100 MG; Start 01/27/17 at 09:00 TERRIE DUNN 6, 2017 22:48
[2017-01-30] VITALS (16 sets, daily range): BP systolic 100–150; BP diastolic 52–65; PULSE 55–71; RESP 16–19
[2017-01-30] MEDS: ACCU-CHEK XX SCH (02:00)
[2017-01-30] MEDS: INSULIN ASPART [NOVOLOG] 3 ML PEN SC SCH ×8 (08:30→21:00)
[2017-01-30] MEDS: INSULIN GLARGINE [LANtus] 3 ML PEN SC SCH (08:49)
[2017-01-30] MEDS: PAROXETINE 10 MG TAB PO SCH (08:54)
[2017-01-30] MEDS: ALLOPURINOL 100 MG TAB PO SCH (08:54)
[2017-01-30] MEDS: ASPIRIN 81 MG TAB PO SCH (08:54)
[2017-01-30] MEDS: MUPIROCIN 2% 22 GM OINT TOP SCH ×2 (08:54→21:24)
[2017-01-30] MEDS: SENNA/DOCUSATE NA (8.6MG/50MG) TAB PO SCH ×2 (08:54→21:24)
[2017-01-30] MEDS: EMPAGLIFLOZIN 10 MG TABLET PO SCH (08:54)
[2017-01-30] MEDS: LINAGLIPTIN 5 MG TABLET PO SCH (08:54)
[2017-01-30] MEDS: METOPROLOL (XL) 50 MG TAB PO SCH (08:55)
--- NOTE | 2017-01-30 10:54 | CONS ---
Date/Time of Note Date/Time of Note DATE: 01/30/17 TIME: 10:52 Assessment/Plan Assessment/Plan Additional Assessment/Plan 1. Congestive heart failure exacerbation, diastolic, acute on chronic - better fluid status now, will keep euvolemic. 2. Abnormal electrocardiogram, assess for acute coronary syndrome-downtrended - rate controlled. 3. Hypertension- in good range, will monitpr clinically. 4. Dyslipidemia. 5. Diabetes mellitus-BS uncontrolled/refusing medications 6. Renal failure- renal team follows. 7. Fevers - better now, on anti_Bx. 8. Obstructive sleep apnea. 9. Obesity. 10. Positive troponin-likely demand type 2 in setting in renal failure and resp distress Consultation Date/Type/Reason Admit Date/Time Jan 19, 2017 at 01:40 Initial Consult Date 01/19/17 Type of Consultation: cardiology Referring Provider: OLIVIA KAPLAN MD 24 HR Interval Summary Free Text/Dictation NO acute events - no ectopy on tele - will monitor clinically now ROS: No fever, no chills, no nausea, no vomiting, no diarrhea/constipation No recent weight changes No chest pain, no PND, no orthopnea No dizziness, blurred vision No thirst, no heat or cold intolerance Exam/Review of Systems Vital Signs Vitals Vital Signs Date Time Temp Pulse Resp B/P Pulse Ox O2 Delivery O2 Flow Rate FiO2 01/30/17 08:14 71 01/30/17 07:55 Nasal Cannula 3.0 01/30/17 07:29 98.0 18 115/65 97 01/30/17 05:41 30 Intake and Output 01/29/17 01/29/17 01/30/17 15:00 23:00 07:00 Intake Total 500 ml Balance 500 ml Exam General: WN/WD/NAD, AOx 2-3 HEENT: Unicetric/atraumatic/EOMI (follows commands) NECK: JVD elevated, no thyromegaly Lymph: no lymphadenopathy HEART: regular with no S3, II/ systolic murmur at apex LUNGS: Coarse sounds ABD: soft, NT, ND, +BS : Intact Neuro: non focal SKIN: chronic changes EXT: trace edema Results Result Diagram: 01/30/17 0941 01/30/17 0941 Results 24 hrs Laboratory Tests Test 01/29/17 11:49 01/29/17 17:02 01/29/17 17:49 01/29/17 21:24 Bedside Glucose 96 69 L 88 87 Test 01/30/17 06:42 01/30/17 09:41 Lab Scanned Report REFERENCE LAB White Blood Count 10.9 H Red Blood Count 3.84 L Hemoglobin 10.6 L Hematocrit 35.8 L Mean Corpuscular Volume 93.2 Mean Corpuscular Hemoglobin 27.6 L Mean Corpuscular Hemoglobin Concent 29.6 L Red Cell Distribution Width 15.3 H Platelet Count 272 Mean Platelet Volume 9.5 Neutrophils % 81.4 H Lymphocytes % 10.7 L Monocytes % 4.4 Eosinophils % 2.5 Basophils % 0.4 Nucleated Red Blood Cells % 0.0 Neutrophils # 8.9 H Lymphocytes # 1.2 Monocytes # 0.5 Eosinophils # 0.3 Basophils # 0.0 Nucleated Red Blood Cells # 0.0 Sodium Level 141 Potassium Level 3.8 Chloride Level 97 Carbon Dioxide Level 37 H Anion Gap 11 Blood Urea Nitrogen 30 #H Creatinine 1.14 H Glucose Level 222 H Calcium Level 9.1 Medications Medications Current Medications Ondansetron HCl (Zofran Inj) 4 mg Q6H PRN IV NAUSEA AND/OR VOMITING Last administered on 01/23/17t 13:33; Admin Dose 4 MG; Start 01/19/17 at 02:00 Acetaminophen (Tylenol Supp) 650 mg Q4H PRN [place] PAIN LEVEL 1-3 OR FEVER; Start 01/19/17 at 02:00 Morphine Sulfate (morphine) 2 mg Q4H PRN IV PAIN LEVEL 7-10; Start 01/19/17 at 02:00 Lorazepam (Ativan) 0.5 mg Q4H PRN IV ANXIETY; Start 01/19/17 at 02:00 Miscellaneous Information 1 ea NOTE XX ; Start 01/19/17 at 06:30 Glucose (Glutose) 15 gm Q15M PRN PO DECREASED GLUCOSE; Start 01/19/17 at 06:30 Glucose (Glutose) 22.5 gm Q15M PRN PO DECREASED GLUCOSE; Start 01/19/17 at 06: 30 Dextrose (D50w Syringe) 25 ml Q15M PRN IV DECREASED GLUCOSE; Start 01/19/17 at 06:30 Dextrose (D50w Syringe) 50 ml Q15M PRN IV DECREASED GLUCOSE; Start 01/19/17 at 06:30 Glucagon (Glucagen) 1 mg Q15M PRN IM DECREASED GLUCOSE; Start 01/19/17 at 06: 30 Glucose (Glutose) 15 gm Q15M PRN BUCCAL DECREASED GLUCOSE; Start 01/19/17 at 06:30 Aspirin (Aspirin) 81 mg DAILY PO Last administered on 01/30/17 08:54; Admin Dose 81 MG; Start 01/19/17 at 09:00 Atorvastatin Calcium (Lipitor) 40 mg HS PO Last administered on 01/28/17 21:50 ; Admin Dose 40 MG; Start 01/19/17 at 21:00 Clonazepam (Klonopin) 0.25 mg DAILY PRN PO ANXIETY; Start 01/19/17 at 06:30 Metoprolol Succinate (Toprol Xl) 50 mg DAILY PO Last administered on 01/30/17 08:55; Admin Dose 50 MG; Start 01/19/17 at 09:00 Paroxetine HCl (Paxil) 10 mg DAILY PO Last administered on 01/30/17 08:54; Admin Dose 10 MG; Start 01/19/17 at 09:00 Trazodone HCl (Desyrel) 50 mg QHS PO Last administered on 01/28/17 21:50; Admin Dose 50 MG; Start 01/19/17 at 21:00 Diagnostic Test (Pha) (Accu-Chek) 1 ea 02 XX Last administered on 01/28/17 02: 50; Admin Dose 1 EA; Start 01/20/17 at 02:00 Insulin Human NPH (Humulin N) 60 unit DAILY@22 SC Last administered on 22:36; Admin Dose 60 UNIT; Start 01/19/17 at 22:00 Linagliptin (Tradjenta) 5 mg DAILY PO Last administered on 01/30/17 08:54; Admin Dose 5 MG; Start 01/20/17 at 09:00 Empaglifozin (Jardiance) 10 mg DAILY@08 PO Last administered on 01/30/17 08:54 ; Admin Dose 10 MG; Start 01/20/17 at 08:00 Mupirocin (Bactroban) 1 applic BID TOP Last administered on 01/30/17 08:54; Admin Dose 1 APPLIC; Start 01/20/17 at 11:00 Insulin Glargine (Lantus) 46 unit DAILY@08 SC Last administered on 01/30/17 08 :49; Admin Dose 46 UNIT; Start 01/22/17 at 08:00 Magnesium Hydroxide (Milk Of Mag) 30 ml BID PRN PO CONSTIPATION Last administered on 01/21/17 11:58; Admin Dose 30 ML; Start 01/21/17 at 10:30 Bisacodyl (Dulcolax) 10 mg DAILY PRN PO CONSTIPATION Last administered on 01/23 12:10; Admin Dose 10 MG; Start 01/21/17 at 10:30 Senna/Docusate Sodium (Senokot-S) 2 tab BID PO Last administered on 01/30/17 08:54; Admin Dose 2 TAB; Start 01/22/17 at 21:00 Bisacodyl (Dulcolax) 10 mg DAILY PRN PO CONSTIPATION; Start 01/22/17 at 22:00 Bisacodyl (Dulcolax Supp) 10 mg DAILY PRN [place] CONSTIPATION Last administered on 01/27/17 16:01; Admin Dose 10 MG; Start 01/23/17 at 15:30 Sodium Biphosphate/ Sodium Phosphate (Fleet Enema) 133 ml DAILY PRN [place] CONSTIPATION; Start 01/23/17 at 15:30 Allopurinol (Zyloprim) 100 mg DAILY PO Last administered on 01/30/17 08:54; Admin Dose 100 MG; Start 01/27/17 at 09:00 WERNER FALCON MD Jan 30, 2017 10:54
--- NOTE | 2017-01-30 14:48 | PN ---
Date/Time of Note Date/Time of Note DATE: 01/30/17 TIME: 14:43 Assessment/Plan VTE Prophylaxis VTE Prophylaxis Intervention: SCD's Lines/Catheters IV Catheter Type (from [facility]): Peripheral IV Urinary Cath still in place: No Assessment/Plan Chief Complaint/Hosp Course Patient was a questionable medical compliance and home, second admission for a CHF exacerbation, patient will benefit from half-way facility placement. Assessment/Plan - ARF 2 to pulm edema, resolving. Dr. Bravo is following in pulmonology consultation. - Diastolic acute on chronic congestive heart failure exacerbation. Continue Lasix. Dr. Cota is following in cardiology consultation. Continue to monitor electrolytes. - Positive troponin. - Hypertension. - Diabetes mellitus type 2 with hemoglobin A1c 9.2. Continue Lantus and pre- meal NovoLog as well as NovoLog per mild algorithm sliding scale. Dr. Bartholomew is following in endocrinology consultation. - Acute on chronic kidney disease. Continue to monitor BUN and creatinine. - Possible sleep apnea, continue BiPAP at night. - Hyperlipidemia. Continue statin. - Morbid obesity Further recommendations based on clinical course. Plan of care discussed with Dr. Garza. Problems: Exam/Review of Systems Vital Signs Vitals Vital Signs Date Time Temp Pulse Resp B/P Pulse Ox O2 Delivery O2 Flow Rate FiO2 01/30/17 12:17 59 01/30/17 12:13 98.2 18 100/57 97 01/30/17 07:55 Nasal Cannula 3.0 01/30/17 05:41 30 Intake and Output 01/29/17 01/29/17 01/30/17 15:00 23:00 07:00 Intake Total 500 ml Balance 500 ml Exam Constitutional: alert, oriented Head: normocephalic Neck: supple Respiratory: clear Cardiovascular: nl pulses, regular rate and rhythm Gastrointestinal: non-tender, soft Extremities: normal pulses Neurological: nl mental status Results Result Diagram: 01/30/17 0941 01/30/17 0941 Results 24 hrs Laboratory Tests Test 01/29/17 17:02 01/29/17 17:49 01/29/17 21:24 01/30/17 06:42 Bedside Glucose 69 L 88 87 Lab Scanned Report REFERENCE LAB Test 01/30/17 09:41 01/30/17 12:31 White Blood Count 10.9 H Red Blood Count 3.84 L Hemoglobin 10.6 L Hematocrit 35.8 L Mean Corpuscular Volume 93.2 Mean Corpuscular Hemoglobin 27.6 L Mean Corpuscular Hemoglobin Concent 29.6 L Red Cell Distribution Width 15.3 H Platelet Count 272 Mean Platelet Volume 9.5 Neutrophils % 81.4 H Lymphocytes % 10.7 L Monocytes % 4.4 Eosinophils % 2.5 Basophils % 0.4 Nucleated Red Blood Cells % 0.0 Neutrophils # 8.9 H Lymphocytes # 1.2 Monocytes # 0.5 Eosinophils # 0.3 Basophils # 0.0 Nucleated Red Blood Cells # 0.0 Sodium Level 141 Potassium Level 3.8 Chloride Level 97 Carbon Dioxide Level 37 H Anion Gap 11 Blood Urea Nitrogen 30 #H Creatinine 1.14 H Glucose Level 222 H Calcium Level 9.1 Bedside Glucose 189 Medications Medications Current Medications Ondansetron HCl (Zofran Inj) 4 mg Q6H PRN IV NAUSEA AND/OR VOMITING Last administered on 01/23/17t 13:33; Admin Dose 4 MG; Start 01/19/17 at 02:00 Acetaminophen (Tylenol Supp) 650 mg Q4H PRN [place] PAIN LEVEL 1-3 OR FEVER; Start 01/19/17 at 02:00 Morphine Sulfate (morphine) 2 mg Q4H PRN IV PAIN LEVEL 7-10; Start 01/19/17 at 02:00 Lorazepam (Ativan) 0.5 mg Q4H PRN IV ANXIETY; Start 01/19/17 at 02:00 Miscellaneous Information 1 ea NOTE XX ; Start 01/19/17 at 06:30 Glucose (Glutose) 15 gm Q15M PRN PO DECREASED GLUCOSE; Start 01/19/17 at 06:30 Glucose (Glutose) 22.5 gm Q15M PRN PO DECREASED GLUCOSE; Start 01/19/17 at 06: 30 Dextrose (D50w Syringe) 25 ml Q15M PRN IV DECREASED GLUCOSE; Start 01/19/17 at 06:30 Dextrose (D50w Syringe) 50 ml Q15M PRN IV DECREASED GLUCOSE; Start 01/19/17 at 06:30 Glucagon (Glucagen) 1 mg Q15M PRN IM DECREASED GLUCOSE; Start 01/19/17 at 06: 30 Glucose (Glutose) 15 gm Q15M PRN BUCCAL DECREASED GLUCOSE; Start 01/19/17 at 06:30 Aspirin (Aspirin) 81 mg DAILY PO Last administered on 01/30/17 08:54; Admin Dose 81 MG; Start 01/19/17 at 09:00 Atorvastatin Calcium (Lipitor) 40 mg HS PO Last administered on 01/28/17 21:50 ; Admin Dose 40 MG; Start 01/19/17 at 21:00 Clonazepam (Klonopin) 0.25 mg DAILY PRN PO ANXIETY; Start 01/19/17 at 06:30 Metoprolol Succinate (Toprol Xl) 50 mg DAILY PO Last administered on 01/30/17 08:55; Admin Dose 50 MG; Start 01/19/17 at 09:00 Paroxetine HCl (Paxil) 10 mg DAILY PO Last administered on 01/30/17 08:54; Admin Dose 10 MG; Start 01/19/17 at 09:00 Trazodone HCl (Desyrel) 50 mg QHS PO Last administered on 01/28/17 21:50; Admin Dose 50 MG; Start 01/19/17 at 21:00 Diagnostic Test (Pha) (Accu-Chek) 1 ea 02 XX Last administered on 01/28/17 02: 50; Admin Dose 1 EA; Start 01/20/17 at 02:00 Insulin Human NPH (Humulin N) 60 unit DAILY@22 SC Last administered on 22:36; Admin Dose 60 UNIT; Start 01/19/17 at 22:00 Linagliptin (Tradjenta) 5 mg DAILY PO Last administered on 01/30/17 08:54; Admin Dose 5 MG; Start 01/20/17 at 09:00 Empaglifozin (Jardiance) 10 mg DAILY@08 PO Last administered on 01/30/17 08:54 ; Admin Dose 10 MG; Start 01/20/17 at 08:00 Mupirocin (Bactroban) 1 applic BID TOP Last administered on 01/30/17 08:54; Admin Dose 1 APPLIC; Start 01/20/17 at 11:00 Insulin Glargine (Lantus) 46 unit DAILY@08 SC Last administered on 01/30/17 08 :49; Admin Dose 46 UNIT; Start 01/22/17 at 08:00 Magnesium Hydroxide (Milk Of Mag) 30 ml BID PRN PO CONSTIPATION Last administered on 01/21/17 11:58; Admin Dose 30 ML; Start 01/21/17 at 10:30 Bisacodyl (Dulcolax) 10 mg DAILY PRN PO CONSTIPATION Last administered on 01/23 12:10; Admin Dose 10 MG; Start 01/21/17 at 10:30 Senna/Docusate Sodium (Senokot-S) 2 tab BID PO Last administered on 01/30/17 08:54; Admin Dose 2 TAB; Start 01/22/17 at 21:00 Bisacodyl (Dulcolax) 10 mg DAILY PRN PO CONSTIPATION; Start 01/22/17 at 22:00 Bisacodyl (Dulcolax Supp) 10 mg DAILY PRN [place] CONSTIPATION Last administered on 01/27/17 16:01; Admin Dose 10 MG; Start 01/23/17 at 15:30 Sodium Biphosphate/ Sodium Phosphate (Fleet Enema) 133 ml DAILY PRN [place] CONSTIPATION; Start 01/23/17 at 15:30 Allopurinol (Zyloprim) 100 mg DAILY PO Last administered on 01/30/17 08:54; Admin Dose 100 MG; Start 01/27/17 at 09:00 MADHU CAZARES Jan 30, 2017 14:48
--- NOTE | 2017-01-30 17:34 | CONS ---
Date/Time of Note Date/Time of Note DATE: 01/30/17 TIME: 17:30 Assessment/Plan Assessment/Plan Problems: (1) DM w/o complication type II, uncontrolled Status: Chronic Comment: Fair glycemic results. Low or near low pre-dinner last 3 days. Will decrease Novolog w/ lunch from 20 to 16 units. Reeval tomorrow. Consultation Date/Type/Reason Admit Date/Time Jan 19, 2017 at 01:40 Initial Consult Date 01/19/17 Type of Consultation: Endocrinology Reason for Consultation T2DM management Referring Provider: OLIVIA KAPLAN MD 24 HR Interval Summary Constitutional: no complaints Detailed Summary Respiratory: no complaints Cardiovascular: no complaints Gastrointestinal: no complaints Genitourinary: no complaints Musculoskeletal: no complaints Neurologic: no complaints Exam/Review of Systems Vital Signs Vitals VS - Last 72 Hours, by Label Date Time Temp Pulse Resp B/P Pulse Ox O2 Delivery O2 Flow Rate FiO2 01/30/17 16:03 58 01/30/17 15:29 98.3 59 16 113/52 98 01/30/17 12:17 59 01/30/17 12:13 98.2 87 18 100/57 97 01/30/17 08:14 71 01/30/17 07:55 Nasal Cannula 3.0 01/30/17 07:29 98.0 81 18 115/65 97 01/30/17 05:41 65 98 30 01/30/17 04:18 61 01/30/17 04:15 97.8 60 19 144/62 98 01/30/17 03:25 56 98 30 01/30/17 01:15 55 98 30 01/30/17 00:16 64 01/30/17 00:00 98.1 55 16 150/58 99 01/29/17 23:20 55 98 30 01/29/17 21:40 2.0 01/29/17 21:40 51 98 30 01/29/17 21:35 Nasal Cannula 3.0 01/29/17 20:00 98.7 55 16 152/67 97 01/29/17 20:00 64 01/29/17 16:25 64 01/29/17 15:30 97.8 69 20 141/56 95 01/29/17 13:43 2.0 01/29/17 12:11 62 01/29/17 11:34 98.2 76 20 113/50 95 01/29/17 08:12 63 01/29/17 08:00 Nasal Cannula 3.0 01/29/17 07:47 98.2 79 17 98/54 93 01/29/17 05:57 2.0 01/29/17 04:51 97.9 52 20 128/72 98 01/29/17 04:29 59 01/29/17 04:00 Nasal Cannula 3.0 01/29/17 03:01 65 99 30 01/29/17 01:46 72 96 30 01/29/17 00:28 98.4 66 16 133/47 97 01/29/17 00:22 69 01/29/17 00:01 69 96 30 01/28/17 20:40 64 96 30 01/28/17 20:39 3.0 01/28/17 20:27 98.1 62 20 136/62 92 01/28/17 20:07 64 01/28/17 20:00 Nasal Cannula 3.0 01/28/17 16:10 71 01/28/17 15:47 98.0 79 20 119/58 95 01/28/17 12:24 98.1 76 20 124/80 97 01/28/17 12:10 59 01/28/17 08:10 63 01/28/17 08:00 Nasal Cannula 3.0 01/28/17 07:58 98.5 65 20 131/47 96 01/28/17 06:06 3.0 01/28/17 05:08 98.1 60 16 121/55 98 01/28/17 04:30 57 01/28/17 03:30 65 98 30 01/28/17 01:50 Nasal Cannula 3.0 01/28/17 01:47 62 99 30 01/28/17 00:40 65 01/28/17 00:39 97.9 66 20 127/50 99 01/27/17 23:59 67 99 30 01/27/17 23:00 3.0 01/27/17 20:50 Nasal Cannula 3.0 01/27/17 20:33 98.9 68 20 119/47 100 01/27/17 20:15 67 Vital Signs Date Time Temp Pulse Resp B/P Pulse Ox O2 Delivery O2 Flow Rate FiO2 01/30/17 16:03 58 01/30/17 15:29 98.3 16 113/52 98 01/30/17 07:55 Nasal Cannula 3.0 01/30/17 05:41 30 Intake and Output 01/29/17 01/29/17 01/30/17 14:59 22:59 06:59 Intake Total 500 ml Balance 500 ml Exam Constitutional: alert, obese, oriented Psych: nl mood/affect, no complaints Respiratory: clear to auscultation, normal air movement Cardiovascular: nl pulses, regular rate and rhythm, No edema, No murmurs/extra sounds, No rub Gastrointestinal: bowel sounds, nl liver, spleen, non-tender, soft, No mass, No rebound or guarding Musculoskeletal: nl extremities to inspection Extremities: normal pulses, No clubbing, No cyanosis, No edema Neurological: PSYCHOLOGY TECHNICIAN II-XII intact, nl mental status, nl speech, nl strength Additional Comments Bedside Glucose - 72 Hours Test 01/27/17 21:08 01/28/17 01:42 01/28/17 08:05 01/28/17 11:50 Bedside Glucose 180mg/dL (70-220) 144mg/dL (70-220) 91mg/dL (70-220) 109mg/dL (70-220) Test 01/28/17 17:20 01/28/17 21:46 01/28/17 22:31 01/29/17 02:17 Bedside Glucose 73mg/dL (70-220) 70mg/dL (70-220) 76mg/dL (70-220) 168mg/dL (70-220) Test 01/29/17 07:45 01/29/17 11:49 01/29/17 17:02 01/29/17 17:49 Bedside Glucose 146mg/dL (70-220) 96mg/dL (70-220) 69mg/dL (70-220) L 88mg/dL (70-220) Test 01/29/17 21:24 01/30/17 12:31 01/30/17 17:13 Bedside Glucose 87mg/dL (70-220) 189mg/dL (70-220) 74mg/dL (70-220) Results Result Diagram: 01/30/17 0941 01/30/17 0941 Results 24 hrs Laboratory Tests Test 01/29/17 17:49 01/29/17 21:24 01/30/17 06:42 01/30/17 09:41 Bedside Glucose 88 87 Lab Scanned Report REFERENCE LAB White Blood Count 10.9 H Red Blood Count 3.84 L Hemoglobin 10.6 L Hematocrit 35.8 L Mean Corpuscular Volume 93.2 Mean Corpuscular Hemoglobin 27.6 L Mean Corpuscular Hemoglobin Concent 29.6 L Red Cell Distribution Width 15.3 H Platelet Count 272 Mean Platelet Volume 9.5 Neutrophils % 81.4 H Lymphocytes % 10.7 L Monocytes % 4.4 Eosinophils % 2.5 Basophils % 0.4 Nucleated Red Blood Cells % 0.0 Neutrophils # 8.9 H Lymphocytes # 1.2 Monocytes # 0.5 Eosinophils # 0.3 Basophils # 0.0 Nucleated Red Blood Cells # 0.0 Sodium Level 141 Potassium Level 3.8 Chloride Level 97 Carbon Dioxide Level 37 H Anion Gap 11 Blood Urea Nitrogen 30 #H Creatinine 1.14 H Glucose Level 222 H Calcium Level 9.1 Test 01/30/17 12:31 01/30/17 17:13 Bedside Glucose 189 74 Medications Medications Current Medications Ondansetron HCl (Zofran Inj) 4 mg Q6H PRN IV NAUSEA AND/OR VOMITING Last administered on 01/23/17t 13:33; Admin Dose 4 MG; Start 01/19/17 at 02:00 Acetaminophen (Tylenol Supp) 650 mg Q4H PRN [place] PAIN LEVEL 1-3 OR FEVER; Start 01/19/17 at 02:00 Morphine Sulfate (morphine) 2 mg Q4H PRN IV PAIN LEVEL 7-10; Start 01/19/17 at 02:00 Lorazepam (Ativan) 0.5 mg Q4H PRN IV ANXIETY; Start 01/19/17 at 02:00 Miscellaneous Information 1 ea NOTE XX ; Start 01/19/17 at 06:30 Glucose (Glutose) 15 gm Q15M PRN PO DECREASED GLUCOSE; Start 01/19/17 at 06:30 Glucose (Glutose) 22.5 gm Q15M PRN PO DECREASED GLUCOSE; Start 01/19/17 at 06: 30 Dextrose (D50w Syringe) 25 ml Q15M PRN IV DECREASED GLUCOSE; Start 01/19/17 at 06:30 Dextrose (D50w Syringe) 50 ml Q15M PRN IV DECREASED GLUCOSE; Start 01/19/17 at 06:30 Glucagon (Glucagen) 1 mg Q15M PRN IM DECREASED GLUCOSE; Start 01/19/17 at 06: 30 Glucose (Glutose) 15 gm Q15M PRN BUCCAL DECREASED GLUCOSE; Start 01/19/17 at 06:30 Aspirin (Aspirin) 81 mg DAILY PO Last administered on 01/30/17 08:54; Admin Dose 81 MG; Start 01/19/17 at 09:00 Atorvastatin Calcium (Lipitor) 40 mg HS PO Last administered on 01/28/17 21:50 ; Admin Dose 40 MG; Start 01/19/17 at 21:00 Clonazepam (Klonopin) 0.25 mg DAILY PRN PO ANXIETY; Start 01/19/17 at 06:30 Metoprolol Succinate (Toprol Xl) 50 mg DAILY PO Last administered on 01/30/17 08:55; Admin Dose 50 MG; Start 01/19/17 at 09:00 Paroxetine HCl (Paxil) 10 mg DAILY PO Last administered on 01/30/17 08:54; Admin Dose 10 MG; Start 01/19/17 at 09:00 Trazodone HCl (Desyrel) 50 mg QHS PO Last administered on 01/28/17 21:50; Admin Dose 50 MG; Start 01/19/17 at 21:00 Diagnostic Test (Pha) (Accu-Chek) 1 ea 02 XX Last administered on 01/28/17 02: 50; Admin Dose 1 EA; Start 01/20/17 at 02:00 Insulin Human NPH (Humulin N) 60 unit DAILY@22 SC Last administered on 22:36; Admin Dose 60 UNIT; Start 01/19/17 at 22:00 Linagliptin (Tradjenta) 5 mg DAILY PO Last administered on 01/30/17 08:54; Admin Dose 5 MG; Start 01/20/17 at 09:00 Empaglifozin (Jardiance) 10 mg DAILY@08 PO Last administered on 01/30/17 08:54 ; Admin Dose 10 MG; Start 01/20/17 at 08:00 Mupirocin (Bactroban) 1 applic BID TOP Last administered on 01/30/17 08:54; Admin Dose 1 APPLIC; Start 01/20/17 at 11:00 Insulin Glargine (Lantus) 46 unit DAILY@08 SC Last administered on 01/30/17 08 :49; Admin Dose 46 UNIT; Start 01/22/17 at 08:00 Magnesium Hydroxide (Milk Of Mag) 30 ml BID PRN PO CONSTIPATION Last administered on 01/21/17 11:58; Admin Dose 30 ML; Start 01/21/17 at 10:30 Bisacodyl (Dulcolax) 10 mg DAILY PRN PO CONSTIPATION Last administered on 01/23 12:10; Admin Dose 10 MG; Start 01/21/17 at 10:30 Senna/Docusate Sodium (Senokot-S) 2 tab BID PO Last administered on 01/30/17 08:54; Admin Dose 2 TAB; Start 01/22/17 at 21:00 Bisacodyl (Dulcolax) 10 mg DAILY PRN PO CONSTIPATION; Start 01/22/17 at 22:00 Bisacodyl (Dulcolax Supp) 10 mg DAILY PRN [place] CONSTIPATION Last administered on 01/27/17 16:01; Admin Dose 10 MG; Start 01/23/17 at 15:30 Sodium Biphosphate/ Sodium Phosphate (Fleet Enema) 133 ml DAILY PRN [place] CONSTIPATION; Start 01/23/17 at 15:30 Allopurinol (Zyloprim) 100 mg DAILY PO Last administered on 01/30/17 08:54; Admin Dose 100 MG; Start 01/27/17 at 09:00 TONY KELLY MD Jan 30, 2017 17:34
[2017-01-30] MEDS: ATORVASTATIN 40 MG TAB PO SCH (21:24)
[2017-01-30] MEDS: traZODone 50 MG TAB PO SCH (21:24)
[2017-01-30] MEDS: NPH, HUMAN INSULIN ISOPHANE 3ML VIAL SC SCH (21:33)
[2017-01-31] VITALS (13 sets, daily range): BP systolic 103–152; BP diastolic 46–67; PULSE 56–68; RESP 16–69
[2017-01-31] MEDS: ACCU-CHEK XX SCH (02:15)
[2017-01-31] MEDS: INSULIN ASPART [NOVOLOG] 3 ML PEN SC SCH ×5 (08:36→17:37)
[2017-01-31] MEDS: INSULIN GLARGINE [LANtus] 3 ML PEN SC SCH (08:37)
[2017-01-31] MEDS: PAROXETINE 10 MG TAB PO SCH (08:38)
[2017-01-31] MEDS: LINAGLIPTIN 5 MG TABLET PO SCH (08:38)
[2017-01-31] MEDS: ALLOPURINOL 100 MG TAB PO SCH (08:38)
[2017-01-31] MEDS: ASPIRIN 81 MG TAB PO SCH (08:38)
[2017-01-31] MEDS: EMPAGLIFLOZIN 10 MG TABLET PO SCH (08:38)
[2017-01-31] MEDS: SENNA/DOCUSATE NA (8.6MG/50MG) TAB PO SCH (08:38)
[2017-01-31] MEDS: MUPIROCIN 2% 22 GM OINT TOP SCH (08:39)
[2017-01-31] MEDS: METOPROLOL (XL) 50 MG TAB PO SCH (08:40)
[2017-01-31] MEDS ORDERED: INSULIN ASPART [NOVOLOG] 3 ML PEN SC SCH ×2 (12:00→18:05)
--- NOTE | 2017-01-31 19:14 | CONS ---
Date/Time of Note Date/Time of Note DATE: 01/31/17 TIME: 19:14 Assessment/Plan Assessment/Plan Additional Assessment/Plan 1. acute kidney injury with metabolic alkalosis- overdiuresis 2. acute on chronic CHF exacerbation 3. 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 HTN 5. DM II Plan : Off lasix now, Cr 1.14, HCo3 stable 37 renal US normal Urine studies Unremarkable uric acid high possibly due to metabolic syndrome, on allopurinol 100mg po daily no need for acetazolamide- will continue to monitor HCo3 pt is on BIPAP at nighttime will follow up Consultation Date/Type/Reason Admit Date/Time Jan 19, 2017 at 01:40 Initial Consult Date 01/25/17 Type of Consultation: NEPHROLOGY Referring Provider: OLIVIA KAPLAN MD 24 HR Interval Summary Free Text/Dictation Seen early in AM, BP stable Exam/Review of Systems Vital Signs Vitals Vital Signs Date Time Temp Pulse Resp B/P Pulse Ox O2 Delivery O2 Flow Rate FiO2 01/31/17 16:58 68 144/54 01/31/17 16:25 98.4 21 98 01/31/17 08:04 Nasal Cannula 3.0 01/31/17 03:02 30 Intake and Output 01/30/17 01/30/17 01/31/17 15:00 23:00 07:00 Intake Total 1000 ml 550 ml Balance 1000 ml 550 ml Results Result Diagram: 01/31/17 0500 01/31/17 0635 Results 24 hrs Laboratory Tests Test 01/30/17 21:28 01/31/17 05:00 01/31/17 06:35 01/31/17 08:20 Bedside Glucose 77 180 White Blood Count 10.5 Red Blood Count 3.61 L Hemoglobin 10.0 L Hematocrit 33.6 L Mean Corpuscular Volume 93.1 Mean Corpuscular Hemoglobin 27.7 L Mean Corpuscular Hemoglobin Concent 29.8 L Red Cell Distribution Width 15.2 H Platelet Count 260 Mean Platelet Volume 9.7 Neutrophils % 74.1 Lymphocytes % 15.8 Monocytes % 5.8 Eosinophils % 3.1 Basophils % 0.3 Nucleated Red Blood Cells % 0.0 Neutrophils # 7.8 H Lymphocytes # 1.7 Monocytes # 0.6 Eosinophils # 0.3 Basophils # 0.0 Nucleated Red Blood Cells # 0.0 Sodium Level 142 Potassium Level 4.1 Chloride Level 99 Carbon Dioxide Level 35 H Anion Gap 12 Blood Urea Nitrogen 31 H Creatinine 1.25 H Glucose Level 175 Calcium Level 8.7 Test 01/31/17 12:20 Bedside Glucose 143 AWILDA LOU MD Jan 31, 2017 19:14
--- NOTE | 2017-02-01 14:18 | DS ---
Date/Time of Note Date/Time of Note DATE: 02/01/17 TIME: 14:16 Discharge Summary Admission/Discharge Info Admit Date/Time Jan 19, 2017 at 01:40 Discharge Date/Time Jan 31, 2017 at 17:50 Patient Condition: Stable Hx of Present Illness This is a 76-year-old female with a history of hypertension, CHF, insulin- dependent diabetes, CKD who presented to the ER complaining of shortness of breath. Patient was just admitted here for CHF and was discharged 2 days ago. She said her shortness of breath worsened since yesterday. Denied chest pain. When presented to the ER, chest x-ray showed Cardiomegaly and pulmonary vascular congestion with bilateral interstitial infiltrates/edema. She was given 80 mg of IV Lasix in the ER. She was placed on BiPAP and admitted to ICU. Hospital Course - ARF 2 to pulm edema, resolving. Dr. Bravo is following in pulmonology consultation. - Diastolic acute on chronic congestive heart failure exacerbation. Continue Lasix. Dr. Cota is following in cardiology consultation. Continue to monitor electrolytes. - Positive troponin. - Hypertension. - Diabetes mellitus type 2 with hemoglobin A1c 9.2. Continue Lantus and pre- meal NovoLog as well as NovoLog per mild algorithm sliding scale. Dr. Bartholomew is following in endocrinology consultation. - Acute on chronic kidney disease. Continue to monitor BUN and creatinine. - Possible sleep apnea, continue BiPAP at night. - Hyperlipidemia. Continue statin. - Morbid obesity Home Meds Active Scripts Furosemide* (Lasix*) 20 Mg Tablet, 20 MG PO BID for 30 Days, TAB Prov:MADHU CAZARES 01/15/17 Metoprolol Succinate* (Toprol XL*) 50 Mg Tab.er.24h, 50 MG PO DAILY for 30 Days Prov:MADHU CAZARES 01/15/17 Aspirin (Aspirin) 81 Mg Chew, 81 MG PO DAILY for 30 Days, TAB Prov:MADHU CAZARES 01/15/17 Reported Medications Empagliflozin/Linagliptin (Glyxambi 25 mg-5 mg Tablet) 1 Each Tablet, 1 EACH PO QAM, TAB 01/06/17 Pantoprazole* (Pantoprazole*) 40 Mg Tablet.dr, 40 MG PO DAILY, TAB 01/06/17 Trazodone Hcl* (Trazodone Hcl*) 50 Mg Tablet, 50 MG PO QHS, #30 TAB 01/06/17 Paroxetine Hcl* (Paroxetine*) 10 Mg Tablet, 10 MG PO DAILY, TAB 01/06/17 Insulin Regular, Human (Humulin R U-500 Kwikpen) 500 Unit/1 Ml Insuln.pen, 0 SQ TID TAKE 33 UNIT-QAM AND QNOON, AND 12 UNIT-QPM 01/06/17 Insulin Glargine,Hum.rec.anlog (Toujeo Solostar) 300 Unit/1 Ml Insuln.pen, 15 UNIT SQ AC BREAKFAST 08/07/16 Pramlintide (Symlinpen 120) 2,700 Mcg/2.7 Ml Pen.injctr, 120 MCG SC TID 08/07/16 Albuterol Sulfate* (Ventolin HFA*) 18 Gm Hfa.aer.ad, 2 PUFF INHALATION Q4H, #1 INHALER 08/06/16 Acetaminophen (PAIN & FEVER) 500 Mg Tablet, 1000 MG PO Q6H, TAB 03/06/16 Isosorbide Mononitrate* (Isosorbide Mononitrate*) 60 Mg Tab.er.24h, 60 MG PO DAILY, TAB 03/06/16 Atorvastatin* (Atorvastatin*) 40 Mg Tablet, 40 MG PO HS, TAB 05/07/14 Discontinued Reported Medications Clonazepam* (Clonazepam*) 0.5 Mg Tablet, 0.25 MG PO NEEDED Y for ANXIETY, TAB 01/06/17 Discontinued Scripts Hydralazine Hcl* (Hydralazine Hcl*) 25 Mg Tab, 25 MG PO Q8 for 30 Days, TAB Prov:MADHU CAZARES 01/15/17 Nifedipine (Afeditab CR) 60 Mg Tablet.sa, 60 MG PO BID for 30 Days Prov:MADHU CAZARES 01/15/17 Follow-up Plan f/up with PMD in 1-2 weeks, BMP in 1-2 weeks at PMD office. Primary Care Provider Ari Alexander MD Time spent on discharge: > 30 minutes MADHU CAZARES Feb 01, 2017 14:18
== END 2017-01-31 17:50 | disposition home health service (06) | DRG 871 ==
LOC: E/R 20:54 → ICU 01-19 01:40 → MS4 01-21 11:59
PROVIDERS: ADMIT Internal Medicine; ATTEND Internal Medicine
DX: A41.9 Sepsis, unspecified organism (principal); J18.9 Pneumonia, unspecified organism; I50.33 Acute on chronic diastolic (congestive) heart failure; N17.9 Acute kidney failure, unspecified; J81.1 Chronic pulmonary edema; E11.22 Type 2 diabetes mellitus with diabetic chronic kidney disease; I13.0 Hypertensive heart and chronic kidney disease with heart failure and stage 1 through stage 4 chronic kidney disease, or unspecified chronic kidney disease; E66.2 Morbid (severe) obesity with alveolar hypoventilation; Z68.42 Body mass index [BMI] 45.0-49.9, adult; I10 Essential (primary) hypertension; N18.9 Chronic kidney disease, unspecified; E66.9 Obesity, unspecified; R65.20 Severe sepsis without septic shock
CPT/HCPCS: 36415; 36600; 71010; 76775; 80048; 80053; 80061; 80202; 81001; 81003; 82533; 82550; 82553; 82565; 82570; 82803; 82962; 83605; 83690; 83880; 84300; 84484; 84520; 84560; 85025; 85610; 85730; 87040; 87081; 87086; 89190; 93005; 94660; 96365; 96366; 96368; 96375; 96376; 97161; 97167; J1940; J0692; J1815; J2405; J3370; J7050

== ENCOUNTER 2017-06-22 09:24 | Inpatient (IN) | END 2017-07-18 20:31 | DRG 4 ==

== ENCOUNTER 2017-11-06 18:52 | Inpatient (IN) | END 2017-11-12 19:22 | DRG 870 ==